=== PATIENT | female | born 1965 | race Caucasian/White ===

== ENCOUNTER 2016-01-04 10:05 | Inpatient (IN) | payer BC ==
[~2016-01-04] VITALS: Ht 160 cm; Wt 57.5 kg
[~2016-01-04 10:05] MED LIST: AC160U10 JT; ACET200V4 INH; ACID1TAB JT; ALPR0.254 GT; CITA20TA7 JT; DEXA4TAB JT; DIPH1TAB25 JT; ENOX40DI8 SC; FAMO20TA5 JT; GUAI100L13 JT; HYDR-3454 PO; IPRA3AMP INH; MAGN400T6 JT; METO5SOL18 JT; Oxycodone Hcl JT
--- OUTSIDE RECORDS SUMMARY | 2016-01-04 10:33 | XMS REPORT | Continuity of Care Document ---
Author Author [facility] Organization [facility] Address Unknown Phone Unavailable Care Team Providers Care Bottom Wheeler Name Role Phone Ewa Mathias PCP [phone] Source Comments Some departments are not documenting in the electronic medical record. If you do not see the information that you expected, contact Release of Information in the Health Information Management department at [phone] for further assistance in locating additional records.[facility] Active Allergies and Adverse Reactions Allergen [...] March 2014. Right breast sono-guided biopsy 04/29/14 ([place], [place]) revealed, grade 3, HER2 positive invasive ductal carcinoma. PET scan 05/12/14 ([place], [place]) revealed a 2.5 cm hypermetabolic mass [...] mastectomy/SLNB/TE on 11/05/14. She finished radiation in [place], [place] in February 2015. She started Examestane in February 2015. PATHOLOGY: Tumor: 2.4 cm tumor bed with no residual tumor Margins Free From Tumor: No ER: positive MS: negative Her 2: positive Grade: 3 Lymph Nodes: 0/2 LVSI: no Extranodal extension: no BREAST IMAGING: Mammogram: -- Right diagnostic mammogram 04/23/14 ([place], [place]) revealed distortion of the breast tissue in the upper outer quadrant with several areas of abnormal calcifications. -- Right diagnostic mammogram 08/17/14 () revealed a clip at 9:30 with surrounding pleomorphic calcifications. The calcifications panned 7 cm and extended to approximately 1 cm FTN. Ultrasound: -- Right breast ultrasound 04/23/14 ([place], [place]) revealed 2.3 cm hypoechoic mass corresponding [...] axillary adenopathy. MEDICAL ONCOLOGY: Dr. Esme Mathias ([place], [place]) PRESENT THERAPY: Neoadjuvant AC x 4 finished 07/16/14, followed by taxotere/perjeta/herceptin finished 10/08/14; started Exemestane in February 2015 REFERRED BY: Self Most Recent Encounters Date Type Specialty Providers Description 11/22/2015 Telephone Neurosurgery Juancarlos Cole MD Paperwork 11/05/2015 [facility] Radiology Sherine Roca Encounter Saira Birch Steven, MD 11/05/2015 Surgery Yao Oliveira MD TRACHEOSTOMY 11/04/2015 Anesthesia Ghada Interiano, NIKKO Event 11/03/2015 [facility] Radiology Franklin Swan MD Canceled (Error) Encounter Ricardo Rowley RN Vandervegte, Heather Lemons, Steven MD 11/03/2015 Endo Rslt Enc Tuan Harvey MD 11/03/2015 Surgery Chris Valverde MD ESOPHAGOGASTRODUODENOSCOP Y 11/02/2015 Anesthesia Radiology Ty Wolfe SRNA Event 10/27/2015 Hospital Radiology Juancarlos Cole MD Canceled (Error) Encounter 10/27/2015 Hospital Radiology Juancarlos Cole MD Canceled (Error) Encounter Alfredo Wesley RN Melvin, Lorie 10/27/2015 Anesthesia Radiology Deb Chakraborty SRNA Event 10/25/2015 [facility] Radiology Kera Chavez APRN Canceled (Error) Encounter 10/21/2015 Screening Form 10/21/2015 Anesthesia Neurosurgery Jorge Fernández MD Event 10/20/2015 [facility] Radiology Velia Celis APRN Canceled (Other) Encounter 10/15/2015 Surgery Kristian Rodas MD Canceled RECONSTRUCTION BREAST WITH IMPLANT 10/14/2015 Anesthesia Addi Rosado MD Event 10/14/2015 Surgery Juancarlos Cole MD SUBOCCIPITAL CRANIECTOMY AND CERVICAL 1 LAMINECTOMY FOR RESECTION OF CEREBELLAR MASS CPT 47784 10/13/2015 [facility] Ozzy Keys MD Posterior fossa tumor - Encounter Juancarlos Cole MD (HCC) 11/11/2015 10/13/2015 Prep for Case Neurosurgery Juancarlos Cole MD Malignant neoplasm of cerebellum (HCC) (Primary Dx) 10/13/2015 Telephone Plastic Surgery Kristian Rodas MD General Question 10/08/2015 Office Visit Plastic Surgery Krisitan Rodas MD Malignant neoplasm of upper-outer quadrant of right female breast (HCC) (Primary Dx) Social History Tobacco Use Types Packs/Day Years [...] LAMINECTOMY FOR RESECTION OF CEREBELLAR MASS CPT 72070 Results from Last 3 Months PROCEDURES-SCAN (11/14/2015 [...] in the usual sterile fashion. A 5 Turkish ROHIT 1 catheter was advanced through the [...] and the needle was removed. A 5 Turkish ROHIT 1 catheter was used to cross the pylorus and was advanced to the proximal jejunum. An Amplatz wire was then advanced into the proximal jejunum and the ROHIT 1 catheter was removed. A series of dilators were placed over the Amplatz wire followed by 20 Turkish peel-away sheath. The ROHIT 1 catheter was then used to exchange the Amplatz wire for a stiff Glidewire and was subsequently removed. An 18 Turkish 45 cm gastrojejunostomy tube was advanced over [...] in the usual sterile fashion. A 5 Turkish ROHIT 1 catheter was advanced through the [...] and the needle was removed. A 5 Turkish ROHIT 1 catheter was used to cross the pylorus and was advanced to the proximal jejunum. An Amplatz wire was then advanced into the proximal jejunum and the ROHIT 1 catheter was removed. A series of dilators were placed over the Amplatz wire followed by 20 Turkish peel-away sheath. The ROHIT 1 catheter was then used to exchange the Amplatz wire for a stiff Glidewire and was subsequently removed. An 18 Turkish 45 cm gastrojejunostomy tube was advanced over [...] 3.5 MMOL/L O2 Sat-Arterial 96.7 95-99 % Sortmrsoner-UVF-Guo 27.5 21-28 MMOL/L Specimen Blood, arterial - [...] Benjamin Sims Procedure Date: 11/03/2015 6:41 PM [facility]: [id number] Date of : 1965 Gender: Female Attending Physician: Chris Valverde MD Procedure: Upper GI endoscopy Indications: Th erapeutic procedure, Diagnostic procedure, Suspected upper gastrointestinal bleeding Providers: Chris Valverde MD (Doctor), Gerald Kilgore RN (Nurse), Vel Ray, Power Plant Operator (Power Plant Operator), Richie Corbin, Power Plant Operator (Power Plant Operator), Ephraim Al MD (Fellow) Referring Physician: [...] 1 second Procedure Code(s): --- Professional --- 99798, Esophagogastroduodenoscopy, flexible, transoral; diagnostic, including collection of specimen(s) by brushing or washing, when performed (separate procedure) CPT copyright 2015 [employer]. All rights reserved. The codes documented in this report are preliminary and upon certified procedural coder review may be revised to meet current [...] tube, left Port-A-Cath, and right breast tissue astrophysics teacher are again noted. Interval improvement in alveolar [...] tube, left Port-A-Cath, and right breast tissue astrophysics teacher are again noted. Interval improvement in alveolar [...] Referring Provider Esme Mathias CV ECHO PV MAGAZINE SUPERVISOR NEI nurse LVIDD 4.1 3.9-5.3 cm LVIDS [...] Screen NEG Electronic Crossmatch YES Unit Number [id number] Blood Component Type RBC,ADSOL,LEUKO REDUCED Unit Division 0 Status OF Unit TRANSFUSED Transfusion Status OK TO TRANSFUSE Crossmatch Result COMPATIBLE,ELECTRONIC Specimen Blood HEPARIN INDUCED PLT AB (HIT) (10/30/2015 2:43 PM) Component Value Range Heparin Induced Plt AB NEGATIVEComment: TEST PERFORMED BY [facility]- NEGATIVE [facility] Heparin AB OD 0.042 0.000-0.499 Specimen [...] lower abdomen and pelvis are excluded from [id number]. Partial visualization of patchy bilateral pulmonary opacities. Partial visualization of the right breast tissue astrophysics teacher. Procedure Note Interface, Radiant Results - SunOct [...] lower abdomen and pelvis are excluded from [id number]. Partial visualization of patchy bilateral pulmonary opacities. Partial visualization of the right breast tissue astrophysics teacher. IMPRESSION Enteric tube as described above. Approved [...] Range Color,UA STRAW Turbidity,UA CLEAR CLEAR-CLEAR Specific Holliday-Urine 1.008 1.003-1.035 pH,UA 7.0 5.0-8.0 Protein,UA NEG [...] Right breast carcinoma post mastectomy and tissue astrophysics teacher placement 11/05/2014. Technique: Multiple contiguous axial CT [...] prior right mastectomy with right breast tissue astrophysics teacher in place. Patchy sclerosis is partially visualized within the proximal right humerus. There are prominent lower thoracic degenerative Schmorl's nodes. Left subclavian chest port remains in place. Procedure Note Interface, Radiant Results - SunOct 20, 2015 8:44 AM CDT CTA CHEST Clinical Indication: 50-year-old female. Shortness of air. Right breast carcinoma post mastectomy and tissue astrophysics teacher placement 11/05/2014. Technique: Multiple contiguous axial CT [...] prior right mastectomy with right breast tissue astrophysics teacher in place. Patchy sclerosis is partially visualized [...] PM) Component Value Range PATHOLOGY REPORT [facility] [email or web address] Asaf Hayes MD, PhD, Director of Anatomic Pathology Department of Pathology and Laboratory Medicine [address] [place] [id number] Surgical Pathology Office: [phone] SURGICAL PATHOLOGY REPORT NAME: LEVI OZUNA SURG PATH #: [id number] MR #: [id number] SPECIMEN CLASS: SR BILLING #: [id number] ALT ID #: LOCATION: [facility] DATE OF PROCEDURE: 10/14/2015 AGE: 50 SEX: [...] Frozen section remnant. A2 Remaining soft tissue. ([facility]) B. Received in formalin, labeled with the patient's name and "cervical 1 bone" are two portions of white-rolon bony tissue measuring 2.0 x 1.3 x 0.5 cm and 2.7 x 2.5 x 0.5 cm. One aspect of the bone is roughened with possible adherent soft tissue. The opposing aspect is smooth and white-rolon. The specimen is decalcified prior to sectioning, and district sales representative sections are submitted in cassettes B1-B3. (sc) C. Received in formalin, labeled with the [...] a white-rolon to red, variegated cut surface. Financial Wellness Coach sections of this portion of tissue are submitted in cassettes C1 and C2. The entire two smaller portions of tissue are submitted in cassette C3 without sectioning. (sc) D. Received in formalin, labeled with the patient's name and "cerebellar tumor CUSA sock" is a 2.5 x 2.0 x 0.6 cm aggregate of minute white-rolon soft tissue fragments. The specimen fragments range from 0.1 cm to 0.3 cm in greatest dimension. Approximately 50% of the specimen is submitted in cassette D1. (sc) [facility]/10/14/2015 Intraoperative Consultation: (Brain), A1FS, lesional tissue, "cerebellar tumor", biopsy: Metastatic carcinoma. Marly Markham MD, Attending Physician If immunohistochemical stains and/or in situ hybridization are cited in this report, the performance characteristics were determined by the Department of Pathology and Laboratory Medicine of the [facility] ([employer]) in compliance with CLIA'88 regulations. Some of these tests rely on the use of "analyte specific reagents" and are subject to specific labeling requirements by the FDA. Known positive and negative control tissues demonstrate appropriate staining. This testing was developed by the Department of Pathology and Laboratory Medicine of the [facility]. It has not been cleared or approved by the FDA. The FDA has determined that such clearance or approval is not necessary. ANESTHESIA ARTERIAL LINE INSERTION (10/14/2015 4:43 PM) Narrative Addi Rosado MD 10/14/20154:43 PM Anesthesia Procedure: Arterial [...]
--- NOTE | 2016-01-04 11:56 | Occupational Therapy Eval ---
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 Subsequent surgeries included PEG insertion and tracheostomy. She has a speaking valve, dysphagia, vocal cord paralysis. Also had post-op pneumonia, anemia. Hx breast cancer with mastectomy in 2014. Transferred to ARU from [place] in [place] Current History Pt was transferred to swing bed on 12/20 for brain radiation and antibiotics. Radiation tx is finished and pt transferred back to ARU for rehabilitation. 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 No pain mentioned but she was fatigued because she had had radiation treatment and modified barium swallow study prior to admission. No pain mentioned Mental Status/Objective Patient Orientation: Person, Place, Time, Situation Attachments: PEG Tube, Saline Lock Current Glasses/Contacts: Yes Hearing Aids: No Hand Dominance: Right Upper Extremity ROM R shoulder 3/5, 3+/5 elbow and distal. L UE 4-/5 throughout Upper Extremity Coordination Impaired Upper Extremity Sensation Pt reported tingling in all fingers both hands since radiation tx No mention of double vision from previous admission ADL-Treatment ADL-Current All ADLs took longer than usual and needed additional encouragement Functional [place] Measure 0=Not Assessed/NA 4=Minimal Assistance 1=Total Assistance 5=Supervision or Setup 2=Maximal Assistance 6=Modified [place] 3=Moderate Assistance 7=Complete [place] Eating (FIM): 1 (Tube feeding which she cannot manage) Grooming (FIM): 5 (Setup to brush teeth, comb hair, wash face and hands. CUes for such things as take glasses off. ) Bathing (FIM): 5 (Sponge bath, setup and supervision, done supine and sitting. Pt was able to reach both feet and wash them, as well as wash layo and bottom with rolling side to side. Min assist to come to sitting EOB but she maintained it and washed arms, chest, abdomen and face/hands) Bathing Location: L Arm, R Arm, L Upper Leg, R Upper Leg, L Lower Leg ( including foot), R Lower Leg (including foot), Chest, Abdomen, Buttocks, Perineal Area Upper Body Dressing (FIM): 4 (Needed a little help to get robe around her shoulders in back) Lower Body Dressing (FIM): 4 (Pt was able to mostly get slipper socks on while supine in bed but had most difficulty getting them started and over feet. Able to get fet into Depends but needed help to pull them up when standing) Transfers (B, C, W/C) (FIM): 4 (Needed a little help when coming to sit to her L side to push up with L arm) Education OT Patient Education: Modified ADL techniques, Progress toward Goal/Update tx plan, Purpose of tx/functional activities, Reviewed precautions, Transfer techniques, Use of adapted equipment Teaching Recipient: Patient Teaching Methods: Demonstration, Discussion Response to Teaching: Reinforcement Needed OT Short Term Goals Short Term Goals Time Frame: 2 weeks Lower Body Dressing(FIM): 4 Toileting(FIM): 4 Transfers (B,C,W/C) (FIM): 5 Toilet/Commode Transfer(FIM): 4 Shower Transfer(FIM): 5 1=Demonstrate adherence to instructed precautions during ADL tasks. 2=Patient will verbalize/demonstrate understanding of assistive devices/ modifications for ADL. 3=Patient will improve strength/tolerance for activity to enable patient to perform ADL's. OT Half-Way Goals Production Sanitizer Goals Time Frame: 4 weeks Eating (FIM): 1 Grooming(FIM): 6 Bathing(FIM): 6 Upper Body Dressing(FIM): 6 Lower Body Dressing(FIM): 5 Toileting(FIM): 5 Transfers (B,C,W/C) (FIM): 5 Toilet/Commode Transfer(FIM): 5 Shower Transfer(FIM): 5 Additional Goals: 2-Verbalize Understanding, 3-ImproveStrength/Enrrique 1=Demonstrate adherence to instructed precautions during ADL tasks. 2=Patient will verbalize/demonstrate understanding of assistive devices/ modifications for ADL. 3=Patient will improve strength/tolerance for activity to enable patient to perform ADL's. OT Education/Plan Problem List/Assessment Assessment: Decreased Activ Tolerance, Decreased Safety Aware, Decreased UE Strength, Dependent Transfers, Impaired Bed Mobility, Impaired Coordination, Impaired Funct Balance, Impaired Self-Care Skills, Restricted Funct UE ROM Pt would benefit from skilled OT to increase her independence in basic self care to allow her to return home safely Discharge Recommendations Plan/Recommendations: Continue POC Target Placement home Patient/Family Goals Her main goal is to walk Treatment Plan/Plan of Care Treatment,Training & Education: Yes Patient would benefit from OT for education, treatment and training to promote independence in ADL's, mobility, safety and/or upper extremity function for ADL' s. Plan of Care: ADL Retraining, Caregiver Training, Functional Mobility, Orthotic Fitting/Training, UE Funct Exercise/Act, UE Neuromus Re-Ed/Coord Treatment Duration: 4 weeks # of days/week 5-6 Visits Per Week: 10-11 Minutes/Day (M-F): 75-90 Agreement: Yes Rehab Potential: Fair Time/GCodes Start Time: 10:40 Stop Time: 11:30 Total Time Billed (hr/min): 50 Billed Treatment Time visit, evaluation 15 minutes, ADL 50 minutes KELLY ATKINS OT Jan 04, 2016 11:56
--- NOTE | 2016-01-04 12:11 | ST Mod Barium Swallow ---
Speech Evaluation-General Medical Diagnosis brain mets, neuropathy of critical illness Onset Date: Oct 13, 2015 Therapy Diagnosis Therapy Diagnosis: Severe Oropharyngeal Dysphagia Precautions Precautions: Aspiration Precautions/Isolations: Fall Prevention, Standard Precautions Referral Referring Physician: Dr. Kristian Dee Reason for Referral: Evaluation/Treatment Modified Barium Swallow Evaluation Medical History Pertinent Medical History: Breast CA S/P Mastectomy Reviewed History: Yes Speech Mod Barium Swallow Prior Level of Function The patient arrived to the rehabilitation floor with an NPO status. 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 Oral Motor Skills Dentition Comments: Patient with natural, full dentition. Lingual Protrusion: Normal (Patient with small amount of white coating on lingual surface. The patient is currently receiving Nyastatin.) Lingual ROM: Abnormal (Reduced lateral range of motion, bilaterally.) Lingual Strength: Abnormal (Reduced lingual strength bilaterally.) Volitional Dry Swallow: Yes (Delayed.) Voluntary Cough: Yes Can Clear Throat Volitionally: No Textures-Lateral View Lateral View Food Presentation: Honey Liquid via Spoon, Pureed Solids Oral Phase Labial Closure: No Impairment (WFL) Bolus Formation Pooling L/R: No Impairment (WFL) Bolus Formation Placement: No Impairment (WFL) A/P Lingual Propulsion: Moderate Impairment (Reduced, delayed, and weak lingual range of motion for posterior propulsion of bolus material.) Lingual Movement: Moderate Impairment (Weak.) Oral Phase Residue: Moderate Impairment (Moderate oral residue remained with all consistencies tested.) Pharyngeal Phase Swallow Response: Moderate Impairment (Bolus material reach and remained in the vallecular space prior to swallow onset. Maximum verbal prompting was provided by the clinician to elicit a swallow response.) Base of Tongue: Moderate Impairment Epiglottic Movement: Mild Impairment Laryngeal Elevation: Moderate Impairment Pharyngeal Wall Residue: Moderate Piriform Sinus Residue: Moderate Laryngeal Penetration: Moderate Aspiration Observations: Moderate Moderate aspiration was visualized during the swallow with puree and honey- thick liquid consistencies. Bolus material reached the pyriform sinuses prior to spilling through the interarytenoid space and into the airway. Regardless of maximum prompting, the patient was unable to clear the aspirated material (in it 's entirety) with a spontaneous cough. Summary/Impressions The patient demonstrated severe oropharyngeal dysphagia characterized by decreased lingual range of motion and strength, reduced base of tongue retraction, decreased pharyngeal wall contractions, and reduced airway protection and sensation in the presence of bolus material. Moderate aspiration was noted throughout the swallow with honey-thick liquid and puree consistencies tested. Recommendations: 1. The patient should remain NPO while receiving complete nutrition, hydration, and medication via PEG tube. 2. Frequent oral care. 3. The patient should continue intensive dysphagia therapy. Speech Short Term Goals Short Term Goals Short Term Goals 1. The patient will independently demonstrate laryngeal, pharyngeal, and base of tongue exercises. Time Frame-STG: Two Weeks Speech Pathology Transcriptionist Goals Fpc Goals 1. The patient will tolerate PO trials of the least restrictive consistency without signs/symptoms of aspiration or laryngeal penetration. Time Frame: Eight Weeks Comprehension: 6 Expression: 5 Social Interaction: 5 Problem Solvin Memory: 5 Speech-Plan Treatment Plan Speech Therapy Treatment Plan: Continue Plan of Care Treatment Duration: 30 # of days/week 4 to 5 Visits Per Week: 4 to 5 Minutes/Day (M-F): 30 Rehab Potential: Guarded Safety Risks/Education Teaching Recipient: Patient Teaching Methods: Discussion Response to Teaching: Verbalize Understanding, Reinforcement Needed Education Topics Provided: Results and Recommendations. To note: Following the video swallow, the patient's highway patrol officer was present to provide communion to the patient. The patient verbalized understanding of her risk of aspiration of the consistency and reported the desire to complete the task regardless. The communion wafer was soaked in the communion wine to soften. The patient took less than a half teaspoon of the wafer and demonstrated an effortful swallow. The patient was immediately suctioned by RN following. Time Speech Therapy Time In: 09:45 Speech Therapy Time Out: 10:25 Total Billed Time: 40 Billed Treatment Time 1CRISTÓBAL ELIZABEFER FLOREZ Jan 04, 2016 12:11
[2016-01-04] MEDS ORDERED: ALPRAZolam 0.25 MG (XANAX) TAB GT PRN (12:45)
[2016-01-04] MEDS ORDERED: RT-ALBUTEROL/IPRATROPIUM 3 ML (DUONEB) VIAL INH PRN (12:45)
[2016-01-04] MEDS: guaiFENesin SYRUP 100 MG/5 ML 10 ML (ROBITUSSIN SF) JT SCH ×3 (13:20→20:25)
[2016-01-04] MEDS: LACTOBACILLUS Acidoph/Bulgar (LACTINEX/FLORANEX) TAB JT SCH ×3 (13:20→20:25)
--- NOTE | 2016-01-04 13:35 | Physical Therapy Evaluation ---
PT Evaluation-General Medical Diagnosis Admission Date Jan 04, 2016 at 10:05 Medical Diagnosis: brain mets, neuropathy of critical illness Onset Date: Oct 13, 2015 Therapy Diagnosis Therapy Diagnosis: generalized weakness and debility Height/Weight Height (Feet): 5 Height (Inches): 3.00 Weight (Pounds): 115 Weight (Ounces): 7.0 Precautions Precautions/Isolations: Fall Prevention, Standard Precautions Referral Physician: Luiz Reason for Referral: Evaluation/Treatment Medical History Pertinent Medical History: Breast CA S/P Mastectomy Additional Medical History breast cancer with brain mets Current History prolonged hospital stay Reviewed History: Yes Social History Home: Single Level Current Living Status: Spouse Entry Into Home: Stairs With Railing PT Steps Into Home: 3 Prior/Core FIM Prior Level of Function Functional [place] Measure 0=Not Assessed/NA 4=Minimal Assistance 1=Total Assistance 5=Supervision or Setup 2=Maximal Assistance 6=Modified [place] 3=Moderate Assistance 7=Complete [place] Bed Mobility: 2 Transfers (B,C,W/C) (FIM): 2 Gait: 0 this is an extension from prolonged hospital stay. PT Evaluation-Current Subjective Patient is just complete with OT and agrees to PT. Pain Numeric Pain Scale: 5-Moderate Pain Location: Lower Location Body Site: Back Pain Description: Ache Pt/Family Goals patient goal is to ambulate Objective Patient Orientation: Normal For Age Problem Solving: Fair JPEG tube ROM/Strength ROM Upper Extremities refer to nursing notes ROM Lower Extremities bilateral LE WFL Strength Upper Extremities refer to OT Strenght Lower Extremities left LE 3-/5 grossly; right LE 2-/5 grossly Integumentary/Posture Integumentary refer to nursing notes Bowel Incontinence: No Bladder Incontinence: No Posture forward head/rounded shoulders Neuromuscular (Tone, Coordination, Reflexes) severely diminished coordination with gross motor activity Sensory Vision: Wears Glasses Hearing: Functional Sensation Right Lower Extremit: Impaired Sensation Left Lower Extremity: Impaired Transfers Transfers (B, C, W/C) (FIM): 3 Scootin Rollin Supine to/from Sit: 4 Sit to/from Stand: 3 bed t/f WC(FIM only if WC use): 3 patient is able to perform bed mobility SBA inconsistently Gait Mode of Locomotion: Both Anticipated Mode of Locomotion: Both Gait (FIM): 1 Distance (FIM): 1=up to 49 ft Distance: 10' x 2 Gait Level of Assist: 2 Gait Persons Needed: 1 Gait Assistive Device: None Comments/Gait Description face to face with PT with use of gait belt to assist patient with weight shifting to advance LE's with gait training Wheelchair Training Wheelchair (FIM): 1 Wheelchair Distance (FIM): 1=up to 49 ft Distance: 10' Wheelchair Level of Assist: 2 Stairs If not tested on admit;explain due to patient severe limitation with debility and weakness, patient is unable to safely perform this task Balance Sitting Static: Fair Sitting Dynamic: Fair Standing Static: Fair Standing Dynamic: Fair Treatment bilateral LE AAROM 15 reps x 2 sets AP, QS, SLR, bridging Assessment/Needs 50 y.o. female, will benefit from skilled PT to address functional strength and mobility to improve current LOF. Patient has been receiving radiation for metastatic cancer. Rehab Potential: Guarded Post Rehab Potential-Barriers: prolonged hospital stay and metastatic cancer PT Short Term Goals Short Term Goals Time Frame: 2 wks Transfers (B,C,W/C) (FIM): 4 Gait (FIM): 1 Distance (FIM): 1=up to 49 ft Gait Distance Comment: 25' Gait Level of Assist: 3 Gait Assistive Device: FWW Wheelchair (FIM): 1 Wheelchair distance (FIM): 1=up to 49 ft Wheelchair Distance: 25' Wheelchair Level of Assist: 4 PT Intermediate Goals Intermediate Goals Time Frame: 4 wks Transfers (B,C,W/C) (FIM): 5 Gait (FIM): 1 Gait distance (FIM): 1=up to 49 ft Distance: 45' Gait Level of Assist: 4 Gait Assistive Device: FWW Stairs (FIM): 1 # of Steps: 4 Stairs Level Of Assist: 4 PT Plan Problem List Problem List: Activity Tolerance, Functional Strength, Safety, Balance, Gait, Transfer, Bed Mobility Treatment/Plan Treatment Plan: Continue Plan of Care Treatment Plan: Bed Mobility, Education, Functional Activity Enrrique, Functional Strength, Group Therapy, Gait, Safety, Therapeutic Exercise, Transfers Treatment Duration: 4 wks # of days/week 5-6 Minutes/Day (M-F): 60-90 Minutes/Day (Sat/Maddox): PRN Pt/Family Agrees w/Plan: Yes Safety Risks/Education Patient Education: Gait Training, Transfer Techniques Teaching Recipient: Patient Teaching Methods: Demonstration, Discussion Response to Teaching: Verbalize Understanding, Return Demonstration Time/GCodes Time In: 1130 Time Out: 1200 Total Billed Treatment Time: 30 Total Billed Treatment 1 visit EVL 30 min TONG STROUD PT Jan 04, 2016 13:35
--- NOTE | 2016-01-04 14:51 | Physical Therapy Daily Note ---
PT Daily Note-Current Subjective Patient is in bed and agrees to therapy. Pain Numeric Pain Scale: 3 Location: Lower Location Body Site: Back Pain Description: Ache Mental Status Patient Orientation: Normal For Age Transfers Transfers (B, C, W/C) (FIM): 3 Scootin Rollin Supine to/from Sit: 5 Sit to/from Stand: 3 Bed to/from Chair: 3 Gait Training Gait (FIM): 1 Distance (FIM): 1=up to 49 ft Distance: 10' x 2; 20' x 1 Gait Level of Assist: 3 Gait Persons Needed: 1 Gait Assistive Device: FWW close mod assist with assist for weight shifting Exercises Supine Ex: Ankle pumps, Quad Set Supine Reps: 15 Assessment Patient requires recovery periods due to fatigue and SOA. Patient also requires much encouragement to participate with advancing therapy program. PT Short Term Goals Short Term Goals Time Frame: 2 wks Transfers (B,C,W/C) (FIM): 4 Gait (FIM): 1 Distance (FIM): 1=up to 49 ft Gait Distance Comment: 25' Gait Level of Assist: 3 Gait Assistive Device: FWW Wheelchair (FIM): 1 Wheelchair distance (FIM): 1=up to 49 ft Wheelchair Distance: 25' Wheelchair Level of Assist: 4 PT Care Home Goals Care Home Goals Time Frame: 4 wks Transfers (B,C,W/C) (FIM): 5 Gait (FIM): 1 Gait distance (FIM): 1=up to 49 ft Distance: 45' Gait Level of Assist: 4 Gait Assistive Device: FWW Stairs (FIM): 1 # of Steps: 4 Stairs Level Of Assist: 4 PT Plan Treatment/Plan Treatment Plan: Continue Plan of Care Treatment Plan: Bed Mobility, Education, Functional Activity Enrrique, Functional Strength, Group Therapy, Gait, Safety, Therapeutic Exercise, Transfers Treatment Duration: 4 wks Minutes/Day (M-F): 60-90 Minutes/Day (Sat/Maddox): PRN Time/GCodes Time In: 1321 Time Out: 1406 Total Billed Treatment Time: 45 Total Billed Treatment 1 visit GT x 3 45 min TONG STROUD PT Jan 04, 2016 14:50
--- NOTE | 2016-01-04 15:40 | Occupational Ther Daily Note ---
OT Current Status-Daily Note Subjective Pt seen in gym after PT. She helped propel w/c to gym with her feet Mental Status/Objective Functional [place] Measure 0=Not Assessed/NA 4=Minimal Assistance 1=Total Assistance 5=Supervision or Setup 2=Maximal Assistance 6=Modified [place] 3=Moderate Assistance 7=Complete [place] Other Treatment Grain Receiver and pinch strength measurements Grain Receiver: L 12, 10, 10, 10 lb R 4, 4, 4 lb Pinch: L R Lateral 6 2 3 jaw domenica 4 1 Tip 2 1 Incomparison to number collected on 12/09 she shows increased pinch on L. For network security officer strength, maximum network security officer about the same but she was able to maintain numbers for longer period of time. Pt returned to her room, scooted to edge of chair, stood min-mod assist and transferred safely to bed. needed a little help to pull up in bed but she did assist. 4 rails up, call light, table present. Education OT Patient Education: Exercise program, Purpose of tx/functional activities, Rehab process, Transfer techniques, Use of adapted equipment Teaching Recipient: Patient Response to Teaching: Reinforcement Needed OT Short Term Goals Short Term Goals Time Frame: 2 weeks Lower Body Dressing(FIM): 4 Toileting(FIM): 4 Transfers (B,C,W/C) (FIM): 5 Toilet/Commode Transfer(FIM): 4 Shower Transfer(FIM): 5 1=Demonstrate adherence to instructed precautions during ADL tasks. 2=Patient will verbalize/demonstrate understanding of assistive devices/ modifications for ADL. 3=Patient will improve strength/tolerance for activity to enable patient to perform ADL's. OT Retirement Goals Maintenance Inspector Goals Time Frame: 4 weeks Eating (FIM): 1 Grooming(FIM): 6 Bathing(FIM): 6 Upper Body Dressing(FIM): 6 Lower Body Dressing(FIM): 5 Toileting(FIM): 5 Transfers (B,C,W/C) (FIM): 5 Toilet/Commode Transfer(FIM): 5 Shower Transfer(FIM): 5 Comprehension(FIM): 6 Expression (FIM): 5 Social Interaction(FIM): 5 Problem Solving(FIM): 5 Memory(FIM): 5 Additional Goals: 2-Verbalize Understanding, 3-ImproveStrength/Enrrique 1=Demonstrate adherence to instructed precautions during ADL tasks. 2=Patient will verbalize/demonstrate understanding of assistive devices/ modifications for ADL. 3=Patient will improve strength/tolerance for activity to enable patient to perform ADL's. OT Education/Plan Problem List/Assessment Pt would benefit from skilled OT to increase her independence in basic self care to allow her to return home safely Discharge Recommendations Plan/Recommendations: Continue POC Treatment Plan/Plan of Care Patient would benefit from OT for education, treatment and training to promote independence in ADL's, mobility, safety and/or upper extremity function for ADL' s. Plan of Care: ADL Retraining, Caregiver Training, Functional Mobility, Orthotic Fitting/Training, UE Funct Exercise/Act, UE Neuromus Re-Ed/Coord Treatment Duration: 4 weeks Visits Per Week: 10-11 Minutes/Day (M-F): 75-90 Agreement: Yes Rehab Potential: Fair Time/GCodes Start Time: 14:10 Stop Time: 14:30 Total Time Billed (hr/min): 20 Billed Treatment Time visit, 20 minutes neuromotor KELLY ATKINS OT Jan 04, 2016 15:40
[2016-01-04] MEDS: aCETylcysteine 20% (MUCOMYST) 30ML SOLN VIAL INH SCH ×2 (15:58→22:07)
[2016-01-04] MEDS: ENOXAPARIN 40 MG/0.4 ML (LOVENOX) SYR SC SCH (16:52)
[2016-01-04] MEDS: METOCLOPRAMIDE 10MG/10ML ORAL SOL(REGLAN) UDC JT SCH ×2 (16:52→20:25)
[2016-01-04] MEDS: MAGNESIUM OXIDE (MAG-OX)400 MG TAB JT SCH (16:53)
[2016-01-04] MEDS: NYSTATIN ORAL SUSP 5 ML UDC PO SCH ×2 (16:53→23:41)
[2016-01-04 18:21] VITALS: BP 99/62
[2016-01-04] MEDS: DIPHENOXYLATE/ATROPINE 2.5MG/0.025MG (LOMOTIL) TAB JT SCH (20:25)
[2016-01-04] MEDS: FAMOTIDINE 20 MG (PEPCID) TABLET JT SCH (20:25)
[2016-01-04] MEDS: APAP 325 MG/10.15 ML LIQ (TYLENOL) UDC JT PRN (22:05)
[2016-01-04] MEDS: RT-ALBUTEROL/IPRATROPIUM 3 ML (DUONEB) VIAL INH SCH (22:07)
[2016-01-05] MEDS: RT-ALBUTEROL/IPRATROPIUM 3 ML (DUONEB) VIAL INH SCH ×4 (02:35→18:49)
[2016-01-05] MEDS: aCETylcysteine 20% (MUCOMYST) 30ML SOLN VIAL INH SCH ×4 (02:35→18:49)
[2016-01-05 05:04] VITALS: BP 94/58
[2016-01-05] MEDS: NYSTATIN ORAL SUSP 5 ML UDC PO SCH ×3 (06:02→18:22)
[2016-01-05] MEDS: METOCLOPRAMIDE 10MG/10ML ORAL SOL(REGLAN) UDC JT SCH ×4 (06:02→21:45)
[2016-01-05] MEDS: MAGNESIUM OXIDE (MAG-OX)400 MG TAB JT SCH ×2 (08:28→18:23)
[2016-01-05] MEDS: LACTOBACILLUS Acidoph/Bulgar (LACTINEX/FLORANEX) TAB JT SCH ×4 (08:28→21:45)
[2016-01-05] MEDS: FAMOTIDINE 20 MG (PEPCID) TABLET JT SCH ×2 (08:28→21:45)
[2016-01-05] MEDS: guaiFENesin SYRUP 100 MG/5 ML 10 ML (ROBITUSSIN SF) JT SCH ×4 (08:28→21:45)
[2016-01-05] MEDS ORDERED: DEXAMETHASONE 1 MG TAB (DECADRON) PO SCH (09:00)
--- NOTE | 2016-01-05 09:37 | HISTORY AND PHYSICAL ---
DATE OF ADMISSION: 01/04/2016 CHIEF COMPLAINT: Difficulty with walking. HISTORY OF PRESENT ILLNESS: The patient is a 50-year-old female who had recent resection of metastatic lesion from breast involving the posterior fossa of the brain at [facility]. She was subsequently discharged to [facility] and then the patient was admitted to Inpatient Rehabilitation Unit earlier this month. The patient was subsequently seen by Dr. Chin radiation therapy and Dr. Bardales, medical oncology as well as Dr. Mathias, PCP. It was decided upon a course of radiation therapy and the patient was transferred to swing bed on December 20 and she has now completed that course of radiation therapy. She is now referred back to Inpatient Rehabilitation Unit to complete a course of inpatient rehabilitation. She had a modified barium swallow with speech therapy today. Unfortunately, did not pass. She remains n.p.o. and on tube feeds. She fatigues easily, has limited endurance. She is mod assist for transfers and ambulates less than 50 feet with a walker and gait belt. She is currently n.p.o. and dependent on tube feeding. She is set up for grooming, mod assist for upper body dressing. Max assist for lower body dressing. Mod assist for toileting. PAST MEDICAL HISTORY: 1. Pneumonia. 2. Vocal cord paralysis PAST SURGICAL HISTORY: 1. Breast cancer, status post mastectomy. 2. Resection of posterior fossa brain tumor 10/14/2015 [facility]. 3. Status post PEG, status post tracheostomy. 4. She has a Passy-Connor valve for communication during the day. ALLERGIES: SULFA FAMILY HISTORY: Noncontributory. SOCIAL HISTORY: She has a supportive family. 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 She is . REVIEW OF SYSTEMS: Ten-point review of systems significant for weakness, right more than left, impaired swallow. MEDICATIONS: 1. Celexa 20 mg per tube daily. 2. Decadron 1 mg per PEG daily. 3. Lomotil 1 tablet per tube b.i.d. 4. Pepcid 20 mg per PEG b.i.d. 5. Magnesium oxide 400 mg per tube b.i.d. 6. Nystatin swish and spit 5 mL q.6 hours. 7. Lovenox 40 mg subcutaneous daily for DVT prophylaxis. 8. Reglan 10 mg q.i.d. per tube. 9. Mucomyst respiratory treatments q.6 hours. 10. Lactinex 1 tablet q.i.d. 11. Guaifenesin 200 mg q.i.d. 12. Tylenol 500 mg q.4 hours p.r.n. mild pain. 13. OxyIR 5 mg q.4 hours p.r.n. moderate to severe pain. 14. Xanax 0.25 mg b.i.d. p.r.n. anxiety. 15. Zofran 4 mg every 4 hours p.r.n. nausea, vomiting. 16. DuoNeb treatments q.4 hours p.r.n. shortness of breath. PHYSICAL EXAMINATION: Significant for a female, appearing fairly debilitated lying in bed in no acute distress. VITAL SIGNS: She is afebrile. Pulse is 86, respirations 22, blood pressure 91/54, O2 sats 91%. HEENT: Vision, speech, hearing, grossly intact. She has a somewhat flat onset. She is able to speak through Passy-Hav[place]and valve. NECK: Trach site in place. No drainage noted. HEART: Regular rhythm. LUNGS: Clear. ABDOMEN: Feeding tube in place. No tenderness. Bowel sounds present. EXTREMITIES: No lower edema. No calf tenderness. MUSCULOSKELETAL: She has functional passive range of motion of all 4 extremities. NEUROLOGICAL: She has diminished coordination. She is reported to be continent of bowel and bladder. Sensation is impaired to touch in the ankles; strength on the right is generally 2-/5, left 3-/5. IMPRESSION: 1. General debilitation secondary to breast CA with mets to brain, status post resection. 2. Metastases superior fossa 12/14/2015, [facility]. 3. Status post trach. 4. Status post PEG. 5. Dysphagia secondary to above associated with weakness, n.p.o. and on tube feeds. 6. Reactive anxiety, on medication. 7. Loose stools at times most likely associated with tube feeds on medication. 8. DVT prophylaxis on Lovenox subcutaneous. 9. Oral thrush on nystatin swish and spit, doing better. 10. Steroid taper. PLAN: The patient is readmitted to Inpatient Rehabilitation Unit to resume comprehensive program of inpatient rehabilitation with goal of maximizing level of functional independence prior to discharge home with family and spouse. The patient will have PT/OT 90 minutes per day, each discipline, 5 days a week, when not being seen by speech therapy, for gait strengthening, conditioning, balance, energy conservation, any patient/family/caregiver training necessary, any adaptive equipment and training necessary. Speech therapy to do ongoing communication and swallow therapy 3 to 5 days a week for 30 to 45 minutes per day. Rehabilitation nursing assist with bowel, bladder, skin and wound care, medication, medication administration, pain management, tube feed administration trach care. Respiratory therapy to assist with respiratory treatments, monitoring O2 sats and trach care. Follow-up with Dr. Mathias, Dr. Bardales and Dr. Chin as per their schedules. marketing services coordinator to assist with discharge planning, community reentry. ESTIMATED LENGTH OF STAY: Two weeks. PROGNOSIS: Rehab prognosis appears good, at least short-term with a goal of maximizing level of functional independence prior to discharge home with spouse so as to lessen the burden of the caregivers, hopefully at the point where she is modified independent to supervision for ADLs and mobility skills. Family will be trained in tube feeds administration. DIET: Tube feedings. POST ADMISSION PHYSICIAN ASSESSMENT: The preadmission screen agrees with the post admission assessment that the patient is a good candidate for inpatient rehabilitation. She appears to be well motivated to participate in 3 hours of therapy a day. She should be able tolerate 3 hours of therapy a day from a medical standpoint. She should benefit from the 3 hours of therapy a day. She has reasonable discharge plan, reasonable discharge rehabilitation goals and a supportive family. She has various comorbidities that need to be closely monitored with medications and treatments adjusted on a daily basis as needed. These include her debility, her dysphagia and reactive anxiety and respiratory care. Barriers for discharge for this patient who had been independent prior to this are for her to be modified independent to supervision for ADLs and mobility skills and hopefully for feeding prior to discharge home with spouse with home health care, so as to lessen the burden of the caregivers. Risks for this patient include: 1. Recurrence of tumor. 2. Worsening neurologic status. 3. Fall. 4. Fracture. 5. DVT. 6. Pulmonary embolism. 7. Feeding tube dysfunction. 8. Trach tube dysfunction. 9. Respiratory infection. 10. Aspiration. 11. Urinary retention. 12. UTI. Job ID: [id number] Dictated Date: 01/04/2016 15:04:33 Carroting Machine Operator Date: 01/05/2016 09:11:51/eloina OVIEDO
--- NOTE | 2016-01-05 09:45 | PM & R (SOAP) Progress Note ---
Subjective Subjective/Events-last exam Patient was seen in her room this AM Had some issues with secretions last night Dr Mathias has addressed. Patient Mod assist for transfers. Objective Exam Last Set of Vital Signs Vital Signs Date Time Temp Pulse Resp B/P Pulse Ox O2 Delivery O2 Flow Rate FiO2 01/05/16 08:17 98 Room Air 01/05/16 05:04 96.5 89 19 94/58 01/05/16 02:35 8.00 30 Capillary Refill : I&O Bad tableGeneral: Alert, Oriented X3, Cooperative, No Acute Distress HEENT: Atraumatic, PERRLA, EOMI, Mucous Memb Moist/[place]: Other (Trach functioning) Lungs: Clear to Auscultation Heart: Regular Rate Abdomen: Normal Bowel Sounds, Soft, No Tenderness, Other (feeding tube in place ) Extremities: No Edema Neuro: Other (generalized weakness) Assessment/Plan Assessment S/P crani and removal Met lesion from breast ca Dysphagia NPO on tube feeds S/P trach ontrac collar at night and with PMV during day S/P Radiation Therapy course while on Swing bed Plan Continue PT/OT/ST Team Conference later today-See report for full functional update and POC and ELOS F/U with DR Mathias and Jeffy asper their schedule, UZMA VILLALOBOS MD Jan 05, 2016 09:45
--- NOTE | 2016-01-05 10:15 | Individualized Plan of Care ---
Individualized Plan of Care Rehab Nursing IPOC Order Admission Date Jan 04, 2016 at 10:05 Current Orders Orders-UZMA VILLALOBOS MD Patient Visit (01/04/16 ) Dysphagia Asmnt-Mod Barium (01/04/16 ) Admission-Acute Rehab Unit (01/04/16 12:38) Vital Signs: Routine 08,16,00 (01/04/16 12:38) Social Service (01/04/16 12:38) Rehab Nursing Orders-Ipoc (01/04/16 12:38) Physical Therapy Rehab Orders (01/04/16 12:38) Occupational Therapy Rehab Ord (01/04/16 12:38) Speech Therapy Rehab Orders (01/04/16 12:38) Turn And Reposition Q2HR (01/04/16 12:38) Intake & Output Shift Assessme ,, (01/04/16 12:38) Precautions (Aru) (01/04/16 12:38) Weekly Weight (Lbs) WEEK (01/04/16 12:38) Suction Airway (01/04/16 12:42) Nursing (Patient Care) Communi (01/04/16 12:42) Tube Feeding (01/04/16 Dinner) Lactobacillus/Bulgaricus Tab (Lactinex (01/04/16 13:00) Diphenoxylate/Atropine Tablet (Lomotil T (01/04/16 21:00) Famotidine Tablet (Pepcid Tablet) (01/04/16 21:00) Acetylcysteine (Rt Or Po Use) (Mucomyst (01/04/16 15:00) Acetaminophen Oral Solution (Tylenol Ora (01/04/16 12:45) Enoxaparin Injection (Lovenox Injection) (01/04/16 16:00) Magnesium Oxide Tablet (Mag Ox Tablet) (01/04/16 18:00) Citalopram Tablet (Celexa Tablet) (01/05/16 09:00) Sodium Chloride Flush (Catheter Flush Sy (01/04/16 12:45) Oxycodone Immediate Rel Tablet (Oxyir Ta (01/04/16 12:45) Dexamethasone Tablet (Decadron Tablet) (01/05/16 09:00) Alprazolam Tablet (Xanax Tablet) (01/04/16 12:45) Metoclopramide Oral Liquid (Reglan Oral (01/04/16 16:00) Nystatin Oral Suspension (Mycostatin O (01/04/16 18:00) Ondansetron Injection (Zofran Injectio (01/04/16 12:45) Albuterol/Ipra Inhalation Soln (Duoneb I (01/04/16 12:45) Guaifenesin Sf Syrup (Robitussin Sf Syru (01/04/16 13:00) Dietary Consult (01/04/16 12:42) Consult Physician (01/04/16 12:47) Patient Visit (01/04/16 ) Pt Evaluation 30-60 Min (01/04/16 ) Gait Training, Ea 15 Min (01/04/16 ) PT IPOC Problem List: Activity Tolerance, Functional Strength, Safety, Balance, Gait, Transfer, Bed Mobility Treatment Plan: Continue Plan of Care Bed Mobility, Education, Functional Activity Enrrique, Functional Strength, Group Therapy, Gait, Safety, Therapeutic Exercise, Transfers Treatment Duration: 4 wks Visits Per Week: 10-11 Minutes/Day (M-F): 60-90 Minutes/Day (Sat/Maddox): PRN OT IPOC Problems: Decreased Activ Tolerance, Decreased Safety Aware, Decreased UE Strength, Dependent Transfers, Impaired Bed Mobility, Impaired Coordination, Impaired Funct Balance, Impaired Self-Care Skills, Restricted Funct UE ROM OT Problems Pt would benefit from skilled OT to increase her independence in basic self care to allow her to return home safely Plan of Care: ADL Retraining, Caregiver Training, Functional Mobility, Orthotic Fitting/Training, UE Funct Exercise/Act, UE Neuromus Re-Ed/Coord Treatment Duration: 4 weeks Visits Per Week: 10-11 Minutes/Day (M-F): 75-90 Minutes/Day (Sat/Maddox): prn ST IPOC Speech Therapy Treatment Plan: Continue Plan of Care Treatment Duration: 30 Visits Per Week: 4 to 5 Minutes/Day (M-F): 30 Physician IPOC Medical Issues being managed closely and that require the 24 hour availability of a physician:Trach care Feeding tube care and administration of Tube feeds Medical Issues: DVT Prophylaxis, Falls Precautions, Fluid/Electrolyte/ Nutrition Balance, Infection Protection, Pain Management, Swallowing Precautions , Other (List) (as per above) Brief Synthesis of Preadmission Screen, Post-Admission Evaluation, and Therapy Evaluations: 50 yo female with metastatic breast ca to brain s/p resection of tumor post fossa at [facility].Has trach and Feeding tube and patient is NPO for dysphagia.Now s/p course of Radiation therapy while on swing bed via [facility] at this facility.Referred back to rehab unit with goal of increasing strength and endurance prior to discharge to home with family.Dr Mathias PCP and DR Jeffy Saini and DR Chin Rad ONC following patient as well Medical Prognosis: short term good Anticipated Length of Stay: 2 weeks Rehab Goals Modified Independent to supervision for ADLS and Mobility skills so as to lessen the burden of the caregivers.Improve swallow so that PO intake possible.Instruct patient and family in Trach and Tube feeds as appropriate. Anticipated discharge destinat: Home with family and [facility] UZMA VILLALOBOS MD Jan 05, 2016 10:15
--- NOTE | 2016-01-05 11:01 | Speech Therapy Daily Note ---
Speech Daily Progress Note Subjective The patient was laying in bed upon entrance. The patient greeted the clinician appropriately and agreed to participate in a discussion and education regarding her video swallow, however, did not wish to complete dysphagia exercises on this date due to significant fatigue. Objective Modified Barium Swallow Evaluation Education: The disk containing the evaluation was shared with the patient on this date. The swallow assessment was extensively reviewed, as well as, the presence of aspiration with honey-thick liquid and puree. The areas of concentration for therapy was discussed with the patient (pharyngeal wall, base of tongue, and laryngeal elevation). The patient denied additional questions at this time and verbalized comprehension of the findings. Assessment Assessment Current Status: Poor Progress Communication Comprehension: 5 Expression: 5 Social Cognition Social Interaction: 4 Problem Solvin Memory: 5 Speech Short Term Goals Short Term Goals Short Term Goals 1. The patient will independently demonstrate laryngeal, pharyngeal, and base of tongue exercises. Time Frame-STG: Two Weeks Speech Half-Way Goals Half-Way Goals 1. The patient will tolerate PO trials of the least restrictive consistency without signs/symptoms of aspiration or laryngeal penetration. Time Frame: Eight Weeks Comprehension: 6 Expression: 5 Social Interaction: 5 Problem Solvin Memory: 5 Speech-Plan Treatment Plan Speech Therapy Treatment Plan: Continue Plan of Care Treatment Duration: 30 # of days/week 4 to 5 Visits Per Week: 4 to 5 Minutes/Day (M-F): 30 Rehab Potential: Guarded Safety Risks/Education Teaching Recipient: Patient Teaching Methods: Discussion, Audiovisual Response to Teaching: Verbalize Understanding Education Topics Provided: Video Swallow Results Time Speech Therapy Time In: 09:30 Speech Therapy Time Out: 10:00 Total Billed Time: 30 Billed Treatment Time 1ASAEL ELIZABETH ST Jan 05, 2016 11:01
[2016-01-05] MEDS: DIPHENOXYLATE/ATROPINE 2.5MG/0.025MG (LOMOTIL) TAB JT SCH ×2 (12:01→21:45)
--- NOTE | 2016-01-05 12:55 | Occupational Ther Daily Note ---
OT Current Status-Daily Note Subjective Pt seen in room, in bed asleep, saying she was tired but would participate. She did not want to take a shower due to fatigue Mental Status/Objective Functional [place] Measure 0=Not Assessed/NA 4=Minimal Assistance 1=Total Assistance 5=Supervision or Setup 2=Maximal Assistance 6=Modified [place] 3=Moderate Assistance 7=Complete [place] Attachments: Central Line, IV, PEG Tube ADL-Treatment Pt reclined to shower or bathe today, citing fatigue Eating (FIM): 1 (tubing feeding which she cannot manage) Upper Body (FIM): 4 (Able to get arms into sleeve and pull sleeves up but needed just a little help to get shirt over head) Lower Body Dressing (FIM): 3 (in bed. COuld not start slipper socks but could help pull them up - 50%. COuld get feet into depends but reluctant to roll side to side or bridge to pull pants up. Needed a little help getting pants up in back) Toileting (FIM): 1 (Unable to manage clothing or hygiene from loose stools. Used BSC. Required two people to manage clothing) Transfers (B, C, W/C) (FIM): 4 (Needed help to push up to sitting at EOB. Min assist to stand, FWW but cues for hand placement) Toilet/Commode Transfer (FIM): 3 (Pt was fatigued so needed more help to transfer from w/c to BSC and back. FWW. Also requires time to stop to manage clothing and legs were tired and buckled X1) Other Treatment Pt helped propel w/c about 20-30 feet, using feet and hands. needed encouragement to use R hand on wheel. In gym, did 3 minutes bilat UE exercise on arm bike set at 5W resistance. She was able to keep both hands on the handles throughout. Also worked on arc activity with no extensions, 2 sets including one with crossing midline. She had difficulty reaching R hand across to grasp rings, requiring repositioning of equipment. Some incoordination with grasping and holding rings. Pt was concerned that she had been incontinent of stool so was returned to room to toilet. Pt transferred back to w/c, up for PT. call light in hand. Pt education on her progress today. Education OT Patient Education: Progress toward Goal/Update tx plan Teaching Recipient: Patient Response to Teaching: Reinforcement Needed OT Short Term Goals Short Term Goals Time Frame: 2 weeks Lower Body Dressing(FIM): 4 Toileting(FIM): 4 Transfers (B,C,W/C) (FIM): 5 Toilet/Commode Transfer(FIM): 4 Shower Transfer(FIM): 5 1=Demonstrate adherence to instructed precautions during ADL tasks. 2=Patient will verbalize/demonstrate understanding of assistive devices/ modifications for ADL. 3=Patient will improve strength/tolerance for activity to enable patient to perform ADL's. OT Care Home Goals Claim Auditor Goals Time Frame: 4 weeks Eating (FIM): 1 Grooming(FIM): 6 Bathing(FIM): 6 Upper Body Dressing(FIM): 6 Lower Body Dressing(FIM): 5 Toileting(FIM): 5 Transfers (B,C,W/C) (FIM): 5 Toilet/Commode Transfer(FIM): 5 Shower Transfer(FIM): 5 Comprehension(FIM): 6 Expression (FIM): 5 Social Interaction(FIM): 5 Problem Solving(FIM): 5 Memory(FIM): 5 Additional Goals: 2-Verbalize Understanding, 3-ImproveStrength/Enrrique 1=Demonstrate adherence to instructed precautions during ADL tasks. 2=Patient will verbalize/demonstrate understanding of assistive devices/ modifications for ADL. 3=Patient will improve strength/tolerance for activity to enable patient to perform ADL's. OT Education/Plan Problem List/Assessment Pt would benefit from skilled OT to increase her independence in basic self care to allow her to return home safely Discharge Recommendations Plan/Recommendations: Continue POC Treatment Plan/Plan of Care Patient would benefit from OT for education, treatment and training to promote independence in ADL's, mobility, safety and/or upper extremity function for ADL' s. Plan of Care: ADL Retraining, Caregiver Training, Functional Mobility, Orthotic Fitting/Training, UE Funct Exercise/Act, UE Neuromus Re-Ed/Coord Treatment Duration: 4 weeks Visits Per Week: 10-11 Minutes/Day (M-F): 75-90 Minutes/Day (Sat/Maddox): prn Agreement: Yes Rehab Potential: Guarded Time/GCodes Start Time: 10:00 Stop Time: 11:00 Total Time Billed (hr/min): 60 Billed Treatment Time visit, 30 minutes exercise, 30 minutes ADL KELLY ATKINS OT Jan 05, 2016 12:55
--- NOTE | 2016-01-05 15:34 | Physical Therapy Daily Note ---
PT Daily Note-Current Subjective Pt is sitting in W/C in room after just finishing OT. Pt reports feeling tired. Pt agrees to PT. Pain Numeric Pain Scale: 0-No Pain Location: No Pain Reported Mental Status Patient Orientation: Person, Place, Situation Attachments: Other-See Comments Trach. and Feeding Tube Transfers Scootin Supine to/from Sit: 3 Sit to/from Stand: 4 Bed to/from Chair: 4 Weight Bearing Weight Bearing Restriction: Full Weight Bearing Location Restriction: LE Bilateral Pt's legs get like jello upon standing. Gait Training Distance (FIM): 0=does not occure Distance: 0' Gait Level of Assist: 3 Gait Persons Needed: 1 Gait Assistive Device: FWW Pt's legs got like jello and can't support her. Wheelchair Training Wheelchair Distance: 6=474-69 ft Distance: 100' Wheelchair Level of Assist: 3 Exercises Seated Therapy Exercises: Ankle pumps, Long arc quads, Hip flexion, Kicking activity, Hip abd/add Seated Reps: 15 Treatments Pt is propelled to Therapy Gym. Pt transfers to [facility] using SPT and uses for 7m at Workload 1. Pt then transfers back to W/C for seated EX. Pt completes EX before needing to return to room for Trach suction and feeding. Pt is transferred back to bed at end of tx to rest at Min-Mod A. Pt is left with all needs met at end of tx. Assessment Current Status: Fair Progress Pt fatigues easy and needs rest breaks. Pt needs encouragement for tx. PT Short Term Goals Short Term Goals Time Frame: Two Weeks Transfers (B,C,W/C) (FIM): 5 Gait (FIM): 1 Distance (FIM): 1=up to 49 ft Gait Distance Comment: 25' Gait Level of Assist: 3 Gait Assistive Device: FWW Wheelchair (FIM): 1 Wheelchair distance (FIM): 1=up to 49 ft Wheelchair Distance: 25' Wheelchair Level of Assist: 4 PT Aluminum Container Tester Goals Aluminum Container Tester Goals Time Frame: 4 wks Transfers (B,C,W/C) (FIM): 5 Gait (FIM): 1 Gait distance (FIM): 1=up to 49 ft Distance: 45' Gait Level of Assist: 4 Gait Assistive Device: FWW Stairs (FIM): 1 # of Steps: 4 Stairs Level Of Assist: 4 PT Plan Problem List Problem List: Activity Tolerance, Functional Strength, Safety, Balance, Gait, Transfer, Bed Mobility Treatment/Plan Treatment Plan: Continue Plan of Care Treatment Plan: Bed Mobility, Education, Functional Activity Enrrique, Functional Strength, Group Therapy, Gait, Safety, Therapeutic Exercise, Transfers Treatment Duration: 4 wks Visits Per Week: 10-11 Minutes/Day (M-F): 60-90 Minutes/Day (Sat/Maddox): PRN Safety Risks/Education Patient Education: Transfer Techniques, Correct Positioning, Safety Issues Teaching Recipient: Patient Teaching Methods: Discussion Response to Teaching: Verbalize Understanding Time/GCodes Time In: 1100 Time Out: 1200 Total Billed Treatment Time: 60 Total Billed Treatment visit, EX X2 (30m), FA (15m) & GT (15m) LUISA DASILVA COMPLIANCE REVIEW OFFICER Jan 05, 2016 15:34
--- NOTE | 2016-01-05 15:38 | Occupational Ther Daily Note ---
OT Current Status-Daily Note Subjective Pt seen in room, up in bed, asleep but easily awakened and agreeable to OT Mental Status/Objective Functional [place] Measure 0=Not Assessed/NA 4=Minimal Assistance 1=Total Assistance 5=Supervision or Setup 2=Maximal Assistance 6=Modified [place] 3=Moderate Assistance 7=Complete [place] Other Treatment Pt did 12-15 repetitions bilat UE exercise to strengthen arms to help with transfers and ADLs. Did exercises without additional resistance. Worked on elbow extension against gravity, with pt able to extend elbows fully but with difficulty and no resistance. Pt education on a couple of these exercises that she can do on her own and why they are important. pt left up in bed, all needs met. OT Short Term Goals Short Term Goals Time Frame: 2 weeks Lower Body Dressing(FIM): 4 Toileting(FIM): 4 Transfers (B,C,W/C) (FIM): 5 Toilet/Commode Transfer(FIM): 4 Shower Transfer(FIM): 5 1=Demonstrate adherence to instructed precautions during ADL tasks. 2=Patient will verbalize/demonstrate understanding of assistive devices/ modifications for ADL. 3=Patient will improve strength/tolerance for activity to enable patient to perform ADL's. OT Help Desk Support Goals [facility] Goals Time Frame: 4 weeks Eating (FIM): 1 Grooming(FIM): 6 Bathing(FIM): 6 Upper Body Dressing(FIM): 6 Lower Body Dressing(FIM): 5 Toileting(FIM): 5 Transfers (B,C,W/C) (FIM): 5 Toilet/Commode Transfer(FIM): 5 Shower Transfer(FIM): 5 Comprehension(FIM): 6 Expression (FIM): 5 Social Interaction(FIM): 5 Problem Solving(FIM): 5 Memory(FIM): 5 Additional Goals: 2-Verbalize Understanding, 3-ImproveStrength/Enrrique 1=Demonstrate adherence to instructed precautions during ADL tasks. 2=Patient will verbalize/demonstrate understanding of assistive devices/ modifications for ADL. 3=Patient will improve strength/tolerance for activity to enable patient to perform ADL's. OT Education/Plan Problem List/Assessment Pt would benefit from skilled OT to increase her independence in basic self care to allow her to return home safely Discharge Recommendations Plan/Recommendations: Continue POC Treatment Plan/Plan of Care Patient would benefit from OT for education, treatment and training to promote independence in ADL's, mobility, safety and/or upper extremity function for ADL' s. Plan of Care: ADL Retraining, Caregiver Training, Functional Mobility, Orthotic Fitting/Training, UE Funct Exercise/Act, UE Neuromus Re-Ed/Coord Treatment Duration: 4 weeks Visits Per Week: 10-11 Minutes/Day (M-F): 75-90 Minutes/Day (Sat/Maddox): prn Agreement: Yes Rehab Potential: Guarded Time/GCodes Start Time: 13:40 Stop Time: 13:55 Total Time Billed (hr/min): 15 Billed Treatment Time visit, 15 minutes exercise KELLY ATKINS OT Jan 05, 2016 15:38
--- NOTE | 2016-01-05 16:14 | Physical Therapy Daily Note ---
PT Daily Note-Current Subjective Pt was supine in bed upon arrival. RT is wanting tx as well as pt reports fatigue. Pt agrees to PT Ex in bed. Pain Numeric Pain Scale: 0-No Pain Location: No Pain Reported Mental Status Patient Orientation: Person, Place, Situation Attachments: Other-See Comments (Trach. and Feeding tube) Exercises Supine Ex: Ankle pumps, Quad Set, Heel Slides, Straight leg raise, Hip abd/add Supine Reps: 15 Treatments Pt completes supine EX after suction and breathing tx from RT. Pt is left supine in bed with all needs met at end of tx. Assessment Current Status: Fair Progress Pt continues to fatigue easy and gets jello legs upon trying to transfer or stand. PT Short Term Goals Short Term Goals Time Frame: Two Weeks Transfers (B,C,W/C) (FIM): 5 Gait (FIM): 1 Distance (FIM): 1=up to 49 ft Gait Distance Comment: 25' Gait Level of Assist: 3 Gait Assistive Device: FWW Wheelchair (FIM): 1 Wheelchair distance (FIM): 1=up to 49 ft Wheelchair Distance: 100' Wheelchair Level of Assist: 4 PT Intermediate Goals Marshmallow Maker Goals Time Frame: 4 wks Transfers (B,C,W/C) (FIM): 5 Gait (FIM): 1 Gait distance (FIM): 1=up to 49 ft Distance: 45' Gait Level of Assist: 4 Gait Assistive Device: FWW Stairs (FIM): 1 # of Steps: 4 Stairs Level Of Assist: 4 PT Plan Problem List Problem List: Activity Tolerance, Functional Strength, Safety, Balance, Gait, Transfer, Bed Mobility Treatment/Plan Treatment Plan: Continue Plan of Care Treatment Plan: Bed Mobility, Education, Functional Activity Enrrique, Functional Strength, Group Therapy, Gait, Safety, Therapeutic Exercise, Transfers Treatment Duration: 4 wks Visits Per Week: 10-11 Minutes/Day (M-F): 60-90 Minutes/Day (Sat/Maddox): PRN Safety Risks/Education Patient Education: Transfer Techniques, Correct Positioning, Disease Process, Safety Issues Teaching Recipient: Patient Teaching Methods: Discussion Response to Teaching: Reinforcement Needed Time/GCodes Time In: 1430 Time Out: 1500 Total Billed Treatment Time: 30 Total Billed Treatment visit, FA (15m) & EX (15m) LUISA DASILVA VEGETABLE LOADER Jan 05, 2016 16:14
[2016-01-05] MEDS: ENOXAPARIN 40 MG/0.4 ML (LOVENOX) SYR SC SCH (16:17)
[2016-01-05 18:32] VITALS: BP 97/63
[2016-01-06] MEDS: NYSTATIN ORAL SUSP 5 ML UDC PO SCH ×5 (00:03→23:33)
[2016-01-06] MEDS: RT-ALBUTEROL/IPRATROPIUM 3 ML (DUONEB) VIAL INH SCH ×4 (02:37→21:55)
[2016-01-06] MEDS: aCETylcysteine 20% (MUCOMYST) 30ML SOLN VIAL INH SCH ×4 (02:37→21:56)
[2016-01-06] MEDS: METOCLOPRAMIDE 10MG/10ML ORAL SOL(REGLAN) UDC JT SCH ×4 (05:25→21:40)
[2016-01-06 05:39] VITALS: BP 99/65
--- NOTE | 2016-01-06 08:27 | Physical Therapy Daily Note ---
PT Daily Note-Current Subjective Patient is in bed and agrees to therapy. Patient reports right shoulder pain 5/ 10. Pain Numeric Pain Scale: 5-Moderate Pain Location: Right Location Body Site: Shoulder (biceps tendon) Pain Description: Ache Mental Status Patient Orientation: Normal For Age JPEG Transfers Transfers (B, C, W/C) (FIM): 3 Scootin Rollin Supine to/from Sit: 5 Sit to/from Stand: 3 Bed to/from Chair: 3 sit <> stand transfer training to FWW x 3 reps and at parallel bars x 5 standing x 1 min each. Patient requires recovery periods due to weakness and fatigue. Gait Training Gait (FIM): 1 Distance (FIM): 1=up to 49 ft Distance: 10' x 2; 25' x 1 Gait Level of Assist: 3 Gait Persons Needed: 1 Gait Assistive Device: FWW difficulty with maintaining balance and demonstrates right lean due to right shoulder pain. Patient is able to correct with verbal and tactile cues. noted diminished coordination/proprioception due to neuropathy and inactivity Wheelchair Training Wheelchair (FIM): 1 Wheelchair Distance: 1=up to 49 ft Distance: 25' x 4 Wheelchair Level of Assist: 5 SBA with verbal cues for propulsion and motivation. Patient requires encouragement to participate, however, does participate with PT. Exercises Supine Ex: Bridging, Ankle pumps, Quad Set, Heel Slides, Straight leg raise, Hip abd/add Supine Reps: 15 2 sets bilaterally Assessment Current Status: Excellent Progress Patient fatigues with treatment, however, is highly motivated with progress. Patient has a pass for Thanksgiving with her family and is very excited. PT to increase activity as tolerated by patient. PT Short Term Goals Short Term Goals Time Frame: Two Weeks Transfers (B,C,W/C) (FIM): 5 Gait (FIM): 1 Distance (FIM): 1=up to 49 ft Gait Distance Comment: 25' Gait Level of Assist: 3 Gait Assistive Device: FWW Wheelchair (FIM): 1 Wheelchair distance (FIM): 1=up to 49 ft Wheelchair Distance: 100' Wheelchair Level of Assist: 4 PT Mcc Goals Hospitalist Physician Goals Time Frame: 4 wks Transfers (B,C,W/C) (FIM): 5 Gait (FIM): 1 Gait distance (FIM): 1=up to 49 ft Distance: 45' Gait Level of Assist: 4 Gait Assistive Device: FWW Stairs (FIM): 1 # of Steps: 4 Stairs Level Of Assist: 4 PT Plan Treatment/Plan Treatment Plan: Continue Plan of Care Treatment Plan: Bed Mobility, Education, Functional Activity Enrrique, Functional Strength, Group Therapy, Gait, Safety, Therapeutic Exercise, Transfers Treatment Duration: 4 wks Visits Per Week: 10-11 Minutes/Day (M-F): 60-90 Minutes/Day (Sat/Maddox): PRN Time/GCodes Time In: 655 Time Out: 815 Total Billed Treatment Time: 80 Total Billed Treatment 1 visit EX x 2 30 min [facility] 20 min Gt x 2 30 min TONG STROUD PT Jan 06, 2016 08:27
[2016-01-06] MEDS: FAMOTIDINE 20 MG (PEPCID) TABLET JT SCH ×2 (09:27→21:40)
[2016-01-06] MEDS: guaiFENesin SYRUP 100 MG/5 ML 10 ML (ROBITUSSIN SF) JT SCH ×4 (09:27→21:40)
[2016-01-06] MEDS: LACTOBACILLUS Acidoph/Bulgar (LACTINEX/FLORANEX) TAB JT SCH ×4 (09:27→21:40)
[2016-01-06] MEDS: DIPHENOXYLATE/ATROPINE 2.5MG/0.025MG (LOMOTIL) TAB JT SCH ×2 (09:27→21:40)
[2016-01-06] MEDS: MAGNESIUM OXIDE (MAG-OX)400 MG TAB JT SCH ×2 (09:27→17:17)
--- NOTE | 2016-01-06 12:44 | Occupational Ther Daily Note ---
OT Current Status-Daily Note Subjective Pt seen in room, planning for therapeutic pass home this afternoon. Agreeable to ADLs, including shower Appearance Alert, cooperative Mental Status/Objective Functional [place] Measure 0=Not Assessed/NA 4=Minimal Assistance 1=Total Assistance 5=Supervision or Setup 2=Maximal Assistance 6=Modified [place] 3=Moderate Assistance 7=Complete [place] Attachments: Central Line, PEG Tube, Other-See Comments (trach) PEG, trach and central covered appropriately with plastic prior to shower ADL-Treatment All ADLs took longer than usual due to additional preparations and protection of central line and other sites Grooming (FIM): 5 (Combed hair setup) Bathing (FIM): 4 (Pt was able to wash and dry all parts except bottom and back , She was able to maintain hold of washcloth in R hand and towel as well. Shower chair, hand held shower. Had help to wash hair to keep water off trach and IV ) Upper Body (FIM): 4 (She needed just a little help to get robe off but was able to put on shirt and get it over her head. Help to adjust it in back. ) Lower Body Dressing (FIM): 1 (Help getting Depends on while sitting up in shower chair. help getting sweat pants on, shoes and socks. She pulled pants up to thighs and stood with just minimal assistance, FWW for someone else to pull her pants up over hips. ) Transfers (B, C, W/C) (FIM): 4 (Min assist to get shoulder up off bed. Scooted min assist to EOB. Stood min assist to transfer to shower chair, using FWW. Needs cues to not sit too soon. Transferred back to bed min assist, taking steps sideways toward head of bed. ) Shower Transfer(FIM): 4 (Min assist to stand to get on/off shower chair. She was able to scoot herself back in shower chair, pushing up from arm rests and with foot rests) present at end of tx. Pt/ educ how to remove and put on leg rests to w/c Education OT Patient Education: Energy conservation, Instructions to caregiver, Modified ADL techniques, Progress toward Goal/Update tx plan, Transfer techniques Teaching Recipient: Patient, Significant Other Response to Teaching: Verbalize Understanding, Return Demonstration OT Short Term Goals Short Term Goals Time Frame: 2 weeks Lower Body Dressing(FIM): 4 Toileting(FIM): 4 Transfers (B,C,W/C) (FIM): 5 Toilet/Commode Transfer(FIM): 4 Shower Transfer(FIM): 5 1=Demonstrate adherence to instructed precautions during ADL tasks. 2=Patient will verbalize/demonstrate understanding of assistive devices/ modifications for ADL. 3=Patient will improve strength/tolerance for activity to enable patient to perform ADL's. OT Computer Networking Instructor Goals [facility] Goals Time Frame: 4 weeks Eating (FIM): 1 Grooming(FIM): 6 Bathing(FIM): 6 Upper Body Dressing(FIM): 6 Lower Body Dressing(FIM): 5 Toileting(FIM): 5 Transfers (B,C,W/C) (FIM): 5 Toilet/Commode Transfer(FIM): 5 Shower Transfer(FIM): 5 Comprehension(FIM): 6 Expression (FIM): 5 Social Interaction(FIM): 5 Problem Solving(FIM): 5 Memory(FIM): 5 Additional Goals: 2-Verbalize Understanding, 3-ImproveStrength/Enrrique 1=Demonstrate adherence to instructed precautions during ADL tasks. 2=Patient will verbalize/demonstrate understanding of assistive devices/ modifications for ADL. 3=Patient will improve strength/tolerance for activity to enable patient to perform ADL's. OT Education/Plan Problem List/Assessment Pt would benefit from skilled OT to increase her independence in basic self care to allow her to return home safely Discharge Recommendations Plan/Recommendations: Continue POC Treatment Plan/Plan of Care Patient would benefit from OT for education, treatment and training to promote independence in ADL's, mobility, safety and/or upper extremity function for ADL' s. Plan of Care: ADL Retraining, Caregiver Training, Functional Mobility, Orthotic Fitting/Training, UE Funct Exercise/Act, UE Neuromus Re-Ed/Coord Treatment Duration: 4 weeks Visits Per Week: 10-11 Minutes/Day (M-F): 75-90 Minutes/Day (Sat/Maddox): prn Agreement: Yes Rehab Potential: Guarded Time/GCodes Start Time: 10:30 Stop Time: 11:30 Total Time Billed (hr/min): 60 Billed Treatment Time visit, 60 minutes ADL KELLY ATKINS OT Jan 06, 2016 12:43
--- NOTE | 2016-01-06 13:09 | Therapy Group Daily Note ---
Therapy Daily Group Note Patient Education Topic Home Safety Exercises Fine Motor, UE Exercise Other/Notes Pt actively participated in OT/PT lunch group. Group consisted of introductions (name, Thanksgiving traditions), socialization, education on kitchen safety, critical thinking/memory activity and lunch. Pt appropriately introduced self and contributed to discussion. Pt was able to complete activity without difficulty. Pt is NPO and unable to eat during group. Pt was able to read and assist with thanksgiving facts. with pt at group and in room. Call light/phone in reach. All needs met in room. Start Time: 11:30 Stop Time: 12:40 Total Billed Treatment Time: 50 Total Billed Treatment 1-GRP (pt only came to group for 50 min due to having respiratory therapy at beginning of group) HUMBERTO LUNA Jan 06, 2016 13:09
[2016-01-06] MEDS: ENOXAPARIN 40 MG/0.4 ML (LOVENOX) SYR SC SCH (16:15)
[2016-01-06 17:51] VITALS: BP 93/61
[2016-01-06] MEDS: APAP 325 MG/10.15 ML LIQ (TYLENOL) UDC JT PRN (22:21)
[2016-01-06] MEDS: ONDANSETRON 4 MG/2 ML (SDV) Z0FRAN IVP PRN (23:32)
[2016-01-07] MEDS: aCETylcysteine 20% (MUCOMYST) 30ML SOLN VIAL INH SCH ×4 (02:48→20:52)
[2016-01-07] MEDS: RT-ALBUTEROL/IPRATROPIUM 3 ML (DUONEB) VIAL INH SCH ×4 (02:48→20:52)
[2016-01-07 05:43] VITALS: BP 93/58
[2016-01-07] MEDS: NYSTATIN ORAL SUSP 5 ML UDC PO SCH ×4 (06:00→23:31)
[2016-01-07] MEDS: METOCLOPRAMIDE 10MG/10ML ORAL SOL(REGLAN) UDC JT SCH ×4 (06:11→20:26)
[2016-01-07] MEDS: ONDANSETRON 4 MG/2 ML (SDV) Z0FRAN IVP PRN (07:00)
[2016-01-07] MEDS: DIPHENOXYLATE/ATROPINE 2.5MG/0.025MG (LOMOTIL) TAB JT SCH ×2 (08:02→20:26)
[2016-01-07] MEDS: guaiFENesin SYRUP 100 MG/5 ML 10 ML (ROBITUSSIN SF) JT SCH ×4 (08:02→20:26)
[2016-01-07] MEDS: LACTOBACILLUS Acidoph/Bulgar (LACTINEX/FLORANEX) TAB JT SCH ×4 (08:02→20:26)
[2016-01-07] MEDS: MAGNESIUM OXIDE (MAG-OX)400 MG TAB JT SCH ×2 (08:03→17:22)
[2016-01-07] MEDS: FAMOTIDINE 20 MG (PEPCID) TABLET JT SCH ×2 (08:03→20:26)
--- NOTE | 2016-01-07 09:07 | Physical Therapy Daily Note ---
PT Daily Note-Current Subjective Pt only reports (R) LE weakness and soreness. Mental Status Patient Orientation: Person, Place, Time, Situation Transfers Transfers (B, C, W/C) (FIM): 3 Scootin Rollin Supine to/from Sit: 3 Sit to/from Stand: 3 Bed to/from Chair: 3 Gait Training Distance (FIM): 1=up to 49 ft Distance: 8ft x3 Gait Level of Assist: 3 Gait Persons Needed: 1 Gait Assistive Device: FWW Pt ambulated 8ft x3 with FWW. We then moved to the parallel bars to perform ambulation. She ambulated forward and back 6-8ft x6. Mod assist for sit to stand and during ambulation. Exercises Supine Ex: LE Protocol Supine Reps: 15 Seated Therapy Exercises: LE Protocol Seated Reps: 15 Assist for (R) LE ex 50% Assessment Current Status: Fair Progress (R) knee gave out consistently during ambulation. No tech to follow with wheelchair or would have spent more time with FWW than with parallel bars. PT Short Term Goals Short Term Goals Time Frame: Two Weeks Transfers (B,C,W/C) (FIM): 5 Gait (FIM): 1 Distance (FIM): 1=up to 49 ft Gait Distance Comment: 25' Gait Level of Assist: 3 Gait Assistive Device: FWW Wheelchair (FIM): 1 Wheelchair distance (FIM): 1=up to 49 ft Wheelchair Distance: 25' x 4 Wheelchair Level of Assist: 4 PT Manager Dialysis Goals Prison Goals Time Frame: 4 wks Transfers (B,C,W/C) (FIM): 5 Gait (FIM): 1 Gait distance (FIM): 1=up to 49 ft Distance: 45' Gait Level of Assist: 4 Gait Assistive Device: FWW Stairs (FIM): 1 # of Steps: 4 Stairs Level Of Assist: 4 PT Plan Treatment/Plan Treatment Plan: Continue Plan of Care Treatment Plan: Bed Mobility, Education, Functional Activity Enrrique, Functional Strength, Group Therapy, Gait, Safety, Therapeutic Exercise, Transfers Treatment Duration: 4 wks Visits Per Week: 10-11 Minutes/Day (M-F): 60-90 Minutes/Day (Sat/M[place]): PRN Time/GCodes Time In: 0915 Time Out: 1000 Total Billed Treatment Time: 45 Total Billed Treatment ex x25', gt x20' NAIMA MENA PT Jan 07, 2016 09:07
--- NOTE | 2016-01-07 10:24 | Speech Therapy Daily Note ---
Speech Daily Progress Note Subjective The patient was sitting upright in bed upon entrance. The patient greeted the clinician appropriately and agreed to participate in dysphagia therapy. To note , the patient's secretions appeared to be reduced, however, she stated respiratory was recently present for suctioning. Objective Dysphagia Exercises: The patient demonstrated good accuracy with dysphagia exercises on this date. The patient displayed 90% accuracy with minimal clinician verbal cueing with laryngeal, pharyngeal, and base of tongue strengthening exercises. The patient agreed to continues exercises independently from her scheduled therapy sessions. Assessment Assessment Current Status: Fair Progress Treatment Plan Continue Plan of Care Communication Comprehension: 5 Expression: 5 Social Cognition Social Interaction: 5 Problem Solvin Memory: 5 Speech Short Term Goals Short Term Goals Short Term Goals 1. The patient will independently demonstrate laryngeal, pharyngeal, and base of tongue exercises. Time Frame-STG: Two Weeks Speech Track Walker Goals Halfway Goals 1. The patient will tolerate PO trials of the least restrictive consistency without signs/symptoms of aspiration or laryngeal penetration. Time Frame: Eight Weeks Comprehension: 6 Expression: 5 Social Interaction: 5 Problem Solvin Memory: 5 Speech-Plan Treatment Plan Speech Therapy Treatment Plan: Continue Plan of Care Treatment Duration: 30 # of days/week 4 to 5 Visits Per Week: 4 to 5 Minutes/Day (M-F): 30 Rehab Potential: Guarded Safety Risks/Education Teaching Recipient: Patient Teaching Methods: Demonstration, Handout, Discussion Response to Teaching: Verbalize Understanding, Return Demonstration Education Topics Provided: Dysphagia Exercises Time Speech Therapy Time In: 09:00 Speech Therapy Time Out: 09:30 Total Billed Time: 30 Billed Treatment Time Bina ASAEL GILBERT VORA Jan 07, 2016 10:24
--- NOTE | 2016-01-07 13:33 | Occupational Ther Daily Note ---
OT Current Status-Daily Note Subjective Pt seen in room, up in bed, agrees to OT but reluctant to get up out of bed. No pain mentioned Appearance Alert, cooperative Mental Status/Objective Functional [place] Measure 0=Not Assessed/NA 4=Minimal Assistance 1=Total Assistance 5=Supervision or Setup 2=Maximal Assistance 6=Modified [place] 3=Moderate Assistance 7=Complete [place] Attachments: Central Line, PEG Tube Other Treatment Pt needs encouragement at times to participate. Needed min assist supine to sit EOB, with head of bed somewhat up.Pt transferred min-mod assist to w/c from bed , FWW. Transported to gym per w/c. Pt did 5 minutes bilat UE ex on arm bike set at 5W resistance, with no breaks (increased time). Also did arc activity with no extensions x 2, including crossover. Added short extension and pt was able to do one rep without assisting R arm with L. Able to place 1" pegs with 1/4" stems with L hand but difficulty pressing them in to board with R hand. Worked on removing them with R hand and placing/manipulating 3/4" pegs in board, working on coordination throughout all activities. Pt returned to room, transferred back to bed with min-mod assistance, FWW and able to get herself into bed with HOB slightly elevated. All needs met. Education OT Patient Education: Exercise program, Progress toward Goal/Update tx plan, Purpose of tx/functional activities Teaching Recipient: Patient Response to Teaching: Reinforcement Needed OT Short Term Goals Short Term Goals Time Frame: 2 weeks Lower Body Dressing(FIM): 4 Toileting(FIM): 4 Transfers (B,C,W/C) (FIM): 5 Toilet/Commode Transfer(FIM): 4 Shower Transfer(FIM): 5 1=Demonstrate adherence to instructed precautions during ADL tasks. 2=Patient will verbalize/demonstrate understanding of assistive devices/ modifications for ADL. 3=Patient will improve strength/tolerance for activity to enable patient to perform ADL's. OT Retort Furnace Operator Goals Care Home Goals Time Frame: 4 weeks Eating (FIM): 1 Grooming(FIM): 6 Bathing(FIM): 6 Upper Body Dressing(FIM): 6 Lower Body Dressing(FIM): 5 Toileting(FIM): 5 Transfers (B,C,W/C) (FIM): 5 Toilet/Commode Transfer(FIM): 5 Shower Transfer(FIM): 5 Comprehension(FIM): 6 Expression (FIM): 5 Social Interaction(FIM): 5 Problem Solving(FIM): 5 Memory(FIM): 5 Additional Goals: 2-Verbalize Understanding, 3-ImproveStrength/Enrrique 1=Demonstrate adherence to instructed precautions during ADL tasks. 2=Patient will verbalize/demonstrate understanding of assistive devices/ modifications for ADL. 3=Patient will improve strength/tolerance for activity to enable patient to perform ADL's. OT Education/Plan Problem List/Assessment Pt would benefit from skilled OT to increase her independence in basic self care to allow her to return home safely Discharge Recommendations Plan/Recommendations: Continue POC Treatment Plan/Plan of Care Patient would benefit from OT for education, treatment and training to promote independence in ADL's, mobility, safety and/or upper extremity function for ADL' s. Plan of Care: ADL Retraining, Caregiver Training, Functional Mobility, Orthotic Fitting/Training, UE Funct Exercise/Act, UE Neuromus Re-Ed/Coord Treatment Duration: 4 weeks Visits Per Week: 10-11 Minutes/Day (M-F): 75-90 Minutes/Day (Sat/Maddox): prn Agreement: Yes Rehab Potential: Guarded Time/GCodes Start Time: 11:15 Stop Time: 12:00 Total Time Billed (hr/min): 45 Billed Treatment Time visit, 45 minutes neuromotor KELLY ATKINS OT Jan 07, 2016 13:33
--- NOTE | 2016-01-07 14:02 | Therapy Group Daily Note ---
Therapy Daily Group Note Other/Notes Each patient had group therapy in the common area of rehab. Each patient began by introducing themselves and stating the funniest thing they have ever seen, which works on memory/recall. Patients had to perform group exercises of upper extremities, lower extremities, trunk, and cervical exercises. They also had to perform an activity that involved memory, critical thinking, and problem solving. After therapy, each patient was taken back to their room with call light within reach. Start Time: 12:30 Stop Time: 13:30 Total Billed Treatment Time: 60 Total Billed Treatment 1 visit GRP 60 min JUAN SMITH PT Jan 07, 2016 14:02
[2016-01-07] MEDS: ENOXAPARIN 40 MG/0.4 ML (LOVENOX) SYR SC SCH (16:11)
[2016-01-07 17:58] VITALS: BP 91/60
[2016-01-08] MEDS: ONDANSETRON 4 MG/2 ML (SDV) Z0FRAN IVP PRN ×2 (00:50→23:16)
[2016-01-08] MEDS: aCETylcysteine 20% (MUCOMYST) 30ML SOLN VIAL INH SCH ×4 (03:07→19:58)
[2016-01-08] MEDS: RT-ALBUTEROL/IPRATROPIUM 3 ML (DUONEB) VIAL INH SCH ×4 (03:07→19:58)
[2016-01-08] MEDS: METOCLOPRAMIDE 10MG/10ML ORAL SOL(REGLAN) UDC JT SCH ×4 (05:21→21:45)
[2016-01-08] MEDS: NYSTATIN ORAL SUSP 5 ML UDC PO SCH ×4 (05:21→23:17)
[2016-01-08 05:44] VITALS: BP 92/58
[2016-01-08] MEDS: APAP 325 MG/10.15 ML LIQ (TYLENOL) UDC JT PRN (06:53)
[2016-01-08] MEDS: LACTOBACILLUS Acidoph/Bulgar (LACTINEX/FLORANEX) TAB JT SCH ×4 (09:42→21:45)
[2016-01-08] MEDS: FAMOTIDINE 20 MG (PEPCID) TABLET JT SCH ×2 (09:42→21:45)
[2016-01-08] MEDS: MAGNESIUM OXIDE (MAG-OX)400 MG TAB JT SCH ×2 (09:42→17:41)
[2016-01-08] MEDS: DIPHENOXYLATE/ATROPINE 2.5MG/0.025MG (LOMOTIL) TAB JT SCH ×2 (09:42→21:45)
[2016-01-08] MEDS: guaiFENesin SYRUP 100 MG/5 ML 10 ML (ROBITUSSIN SF) JT SCH ×4 (09:42→21:45)
--- NOTE | 2016-01-08 09:44 | Physical Therapy Daily Note ---
PT Daily Note-Current Subjective Agrees to Rx. Not sure when she will get to go home Mental Status Attachments: PEG Tube Transfers Transfers (B, C, W/C) (FIM): 3 Scootin Rollin Supine to/from Sit: 4 Sit to/from Stand: 3 Bed to/from Chair: 3 Gait Training 4 small steps bed to chair , side step dance fashion with mod assist Exercises Supine Ex: Bridging, Ankle pumps, Quad Set, Rolling, Glut sets, Heel Slides, Knee to chest, Scooting, Straight leg raise, Hip abd/add Supine Reps: 15 Treatments standing and pregait activity , pt. fearful and whimpers wants to sit, this WATERSHED PROGRAM MANAGER reminding pt. of her goals etc Assessment Current Status: Good Progress PT Short Term Goals Short Term Goals Time Frame: Two Weeks Transfers (B,C,W/C) (FIM): 5 Gait (FIM): 1 Distance (FIM): 1=up to 49 ft Gait Distance Comment: 25' Gait Level of Assist: 3 Gait Assistive Device: FWW Wheelchair (FIM): 1 Wheelchair distance (FIM): 1=up to 49 ft Wheelchair Distance: 25' x 4 Wheelchair Level of Assist: 4 PT Production Support Developer Goals Production Support Developer Goals Time Frame: 4 wks Transfers (B,C,W/C) (FIM): 5 Gait (FIM): 1 Gait distance (FIM): 1=up to 49 ft Distance: 45' Gait Level of Assist: 4 Gait Assistive Device: FWW Stairs (FIM): 1 # of Steps: 4 Stairs Level Of Assist: 4 PT Plan Treatment/Plan Treatment Plan: Continue Plan of Care Treatment Plan: Bed Mobility, Education, Functional Activity Enrrique, Functional Strength, Group Therapy, Gait, Safety, Therapeutic Exercise, Transfers Treatment Duration: 4 wks Visits Per Week: 10-11 Minutes/Day (M-F): 60-90 Minutes/Day (Sat/Maddox): PRN Safety Risks/Education Patient Education: Transfer Techniques, Correct Positioning Teaching Recipient: Patient Teaching Methods: Demonstration, Discussion Response to Teaching: Verbalize Understanding, Return Demonstration, Reinforcement Needed Time/GCodes Time In: 830 Time Out: 900 Total Billed Treatment Time: 30 Total Billed Treatment 1,EX15m,FA15m G Codes Necessary: KATLIN Maynard WATERSHED PROGRAM MANAGER Jan 08, 2016 09:44
--- NOTE | 2016-01-08 09:45 | Occupational Ther Daily Note ---
OT Current Status-Daily Note Subjective "OK." Appearance Patient seated at bedside in recliner, pillows used to prop up her distal extremities, more on the right than the left. Mental Status/Objective Patient Orientation: Person, Situation Functional [place] Measure 0=Not Assessed/NA 4=Minimal Assistance 1=Total Assistance 5=Supervision or Setup 2=Maximal Assistance 6=Modified [place] 3=Moderate Assistance 7=Complete [place] Other Treatment Therapy performed at bedside as patient reporting fatigue. Tolerated 25 minutes of fine motor strength work to bilateral hands including AROM for all digital movements followed by moderate resistive putty for the hand intrinsics and coordination. Skills left much better than the right. With pillows removed right , she would list to the right, but could self correct. Independently pulled self forward for pillow to be placed behind her back to bring her forward for therapy session. After 25 minutes, asked to stop due to fatigue. Education OT Patient Education: Correct positioning, Exercise program Teaching Recipient: Patient Teaching Methods: Demonstration, Discussion Response to Teaching: Verbalize Understanding OT Short Term Goals Short Term Goals Time Frame: 2 weeks Lower Body Dressing(FIM): 4 Toileting(FIM): 4 Transfers (B,C,W/C) (FIM): 5 Toilet/Commode Transfer(FIM): 4 Shower Transfer(FIM): 5 1=Demonstrate adherence to instructed precautions during ADL tasks. 2=Patient will verbalize/demonstrate understanding of assistive devices/ modifications for ADL. 3=Patient will improve strength/tolerance for activity to enable patient to perform ADL's. OT Smt Technician Goals [facility]sp Goals Time Frame: 4 weeks Eating (FIM): 1 Grooming(FIM): 6 Bathing(FIM): 6 Upper Body Dressing(FIM): 6 Lower Body Dressing(FIM): 5 Toileting(FIM): 5 Transfers (B,C,W/C) (FIM): 5 Toilet/Commode Transfer(FIM): 5 Shower Transfer(FIM): 5 Comprehension(FIM): 6 Expression (FIM): 5 Social Interaction(FIM): 5 Problem Solving(FIM): 5 Memory(FIM): 5 Additional Goals: 2-Verbalize Understanding, 3-ImproveStrength/Enrrique 1=Demonstrate adherence to instructed precautions during ADL tasks. 2=Patient will verbalize/demonstrate understanding of assistive devices/ modifications for ADL. 3=Patient will improve strength/tolerance for activity to enable patient to perform ADL's. OT Education/Plan Problem List/Assessment Pt would benefit from skilled OT to increase her independence in basic self care to allow her to return home safely Discharge Recommendations Plan/Recommendations: Continue POC Treatment Plan/Plan of Care Patient would benefit from OT for education, treatment and training to promote independence in ADL's, mobility, safety and/or upper extremity function for ADL' s. Plan of Care: ADL Retraining, Caregiver Training, Functional Mobility, Orthotic Fitting/Training, UE Funct Exercise/Act, UE Neuromus Re-Ed/Coord Treatment Duration: 4 weeks Visits Per Week: 10-11 Minutes/Day (M-F): 75-90 Minutes/Day (Sat/Maddox): prn Agreement: Yes Rehab Potential: Guarded Time/GCodes Start Time: 09:10 Stop Time: 09:35 Total Time Billed (hr/min): 25 Billed Treatment Time Visit, ex x 2 units G Codes Necessary: No CONCEPCIÓN BAKER OT Jan 08, 2016 09:45
[2016-01-08] MEDS: ENOXAPARIN 40 MG/0.4 ML (LOVENOX) SYR SC SCH (16:27)
[2016-01-08 18:08] VITALS: BP 93/58
[2016-01-08] MEDS: CATHETER FLUSH 10 ML SYR IV PRN (23:17)
[2016-01-09] MEDS: RT-ALBUTEROL/IPRATROPIUM 3 ML (DUONEB) VIAL INH SCH ×4 (02:27→21:36)
[2016-01-09] MEDS: aCETylcysteine 20% (MUCOMYST) 30ML SOLN VIAL INH SCH ×4 (02:27→21:37)
[2016-01-09] MEDS: NYSTATIN ORAL SUSP 5 ML UDC PO SCH ×3 (05:32→18:00)
[2016-01-09] MEDS: METOCLOPRAMIDE 10MG/10ML ORAL SOL(REGLAN) UDC JT SCH ×4 (05:32→20:30)
[2016-01-09 05:48] VITALS: BP 106/64
[2016-01-09] MEDS: MAGNESIUM OXIDE (MAG-OX)400 MG TAB JT SCH ×2 (09:15→19:03)
[2016-01-09] MEDS: LACTOBACILLUS Acidoph/Bulgar (LACTINEX/FLORANEX) TAB JT SCH ×4 (09:15→20:30)
[2016-01-09] MEDS: FAMOTIDINE 20 MG (PEPCID) TABLET JT SCH ×2 (09:15→20:30)
[2016-01-09] MEDS: guaiFENesin SYRUP 100 MG/5 ML 10 ML (ROBITUSSIN SF) JT SCH ×4 (09:15→20:30)
[2016-01-09] MEDS: DIPHENOXYLATE/ATROPINE 2.5MG/0.025MG (LOMOTIL) TAB JT SCH ×2 (09:15→20:30)
[2016-01-09] MEDS: ENOXAPARIN 40 MG/0.4 ML (LOVENOX) SYR SC SCH (16:51)
[2016-01-09 18:00] VITALS: BP 93/57
[2016-01-10] MEDS: RT-ALBUTEROL/IPRATROPIUM 3 ML (DUONEB) VIAL INH SCH ×4 (03:05→19:21)
[2016-01-10] MEDS: aCETylcysteine 20% (MUCOMYST) 30ML SOLN VIAL INH SCH ×4 (03:05→19:22)
[2016-01-10 05:23] VITALS: BP 90/59
[2016-01-10] MEDS: NYSTATIN ORAL SUSP 5 ML UDC PO SCH ×5 (05:45→23:28)
[2016-01-10] MEDS: METOCLOPRAMIDE 10MG/10ML ORAL SOL(REGLAN) UDC JT SCH ×4 (05:45→20:58)
[2016-01-10] MEDS: FAMOTIDINE 20 MG (PEPCID) TABLET JT SCH ×2 (09:42→20:57)
[2016-01-10] MEDS: guaiFENesin SYRUP 100 MG/5 ML 10 ML (ROBITUSSIN SF) JT SCH ×4 (09:42→20:58)
[2016-01-10] MEDS: LACTOBACILLUS Acidoph/Bulgar (LACTINEX/FLORANEX) TAB JT SCH ×4 (09:42→20:57)
[2016-01-10] MEDS: MAGNESIUM OXIDE (MAG-OX)400 MG TAB JT SCH ×2 (09:42→17:30)
[2016-01-10] MEDS: DIPHENOXYLATE/ATROPINE 2.5MG/0.025MG (LOMOTIL) TAB JT SCH ×2 (09:42→20:57)
--- NOTE | 2016-01-10 10:16 | Speech Therapy Daily Note ---
Speech Daily Progress Note Subjective The patient was laying in bed upon entrance. The patient agreed to dysphagia therapy, however, did report significant fatigue on this date. Objective Dysphagia Exercises: The patient completed ten repetitions of each exercise on this date. The patient continues to demonstrate mild to moderate difficulty with exercises that require the physical swallow, however, is demonstrating improvement and strength with laryngeal/vocal tasks. The patient completed today 's session with 70% accuracy and moderate clinician verbal prompting. To note: The patient was suctioned post therapy by request of patient. Assessment Assessment Current Status: Fair Progress Treatment Plan Continue Plan of Care Communication Comprehension: 5 Expression: 5 Social Cognition Social Interaction: 5 Problem Solvin Memory: 5 Speech Short Term Goals Short Term Goals Short Term Goals 1. The patient will independently demonstrate laryngeal, pharyngeal, and base of tongue exercises. Time Frame-STG: Two Weeks Speech Snf Goals Snf Goals 1. The patient will tolerate PO trials of the least restrictive consistency without signs/symptoms of aspiration or laryngeal penetration. Time Frame: Eight Weeks Comprehension: 6 Expression: 5 Social Interaction: 5 Problem Solvin Memory: 5 Speech-Plan Treatment Plan Speech Therapy Treatment Plan: Continue Plan of Care Treatment Duration: 30 # of days/week 4 to 5 Visits Per Week: 4 to 5 Minutes/Day (M-F): 30 Rehab Potential: Guarded Safety Risks/Education Teaching Recipient: Patient Teaching Methods: Discussion Response to Teaching: Verbalize Understanding Education Topics Provided: Progression towards Goals Time Speech Therapy Time In: 09:45 Speech Therapy Time Out: 10:15 Total Billed Time: 30 Billed Treatment Time 1, ASAEL VIELKAGILBERT ST Jan 10, 2016 10:16
--- NOTE | 2016-01-10 11:06 | Occupational Ther Daily Note ---
OT Current Status-Daily Note Subjective Pt seen in room, up in bed, agreeable to OT. Mentioned tenderness on scalp where she received radiation tx Appearance Alert, cooperative Mental Status/Objective Functional [place] Measure 0=Not Assessed/NA 4=Minimal Assistance 1=Total Assistance 5=Supervision or Setup 2=Maximal Assistance 6=Modified [place] 3=Moderate Assistance 7=Complete [place] ADL-Treatment Pt was able to reach brakes on w/c but did not have adequate strength to lock brakes. Grooming (FIM): 5 (Pt was able to take cap on/off toothpaste tube, put it on toothbrush, brush teeth, rinse mouth, turn water on/off, at sink, w/c level. Brushed hair. Needed a little help to get w/c positioned in front of sink) Transfers (B, C, W/C) (FIM): 4 (Supine to sit and sit to supine with SBA, although uncoordinated. Transfer bed to w/c and back min assist. tends to sit before she is squared up with bed or w/c., FWW) Other Treatment In gym, worked on coordination activities bilat UEs. Pt did arc activity x 2 sets bilat with short extension. She was able to reach rings with R UE and move them without assistance from L UE but cues needed bilat to use fingers for grasp. Pt also worked with 1" wooden cubes and was able to recreate block patterns, both 2 dimensional and 3 dimensional, using bilat UEs with a little incoordination and shaking. At end of tx, pt transferred back into bed, all needs met, 4 rails up. Education OT Patient Education: Modified ADL techniques, Purpose of tx/functional activities Teaching Recipient: Patient Teaching Methods: Discussion Response to Teaching: Verbalize Understanding OT Short Term Goals Short Term Goals Time Frame: 2 weeks Lower Body Dressing(FIM): 4 Toileting(FIM): 4 Transfers (B,C,W/C) (FIM): 5 Toilet/Commode Transfer(FIM): 4 Shower Transfer(FIM): 5 1=Demonstrate adherence to instructed precautions during ADL tasks. 2=Patient will verbalize/demonstrate understanding of assistive devices/ modifications for ADL. 3=Patient will improve strength/tolerance for activity to enable patient to perform ADL's. OT Mcfp Goals Mcfp Goals Time Frame: 4 weeks Eating (FIM): 1 Grooming(FIM): 6 Bathing(FIM): 6 Upper Body Dressing(FIM): 6 Lower Body Dressing(FIM): 5 Toileting(FIM): 5 Transfers (B,C,W/C) (FIM): 5 Toilet/Commode Transfer(FIM): 5 Shower Transfer(FIM): 5 Comprehension(FIM): 6 Expression (FIM): 5 Social Interaction(FIM): 5 Problem Solving(FIM): 5 Memory(FIM): 5 Additional Goals: 2-Verbalize Understanding, 3-ImproveStrength/Enrrique 1=Demonstrate adherence to instructed precautions during ADL tasks. 2=Patient will verbalize/demonstrate understanding of assistive devices/ modifications for ADL. 3=Patient will improve strength/tolerance for activity to enable patient to perform ADL's. OT Education/Plan Problem List/Assessment Pt would benefit from skilled OT to increase her independence in basic self care to allow her to return home safely Discharge Recommendations Plan/Recommendations: Continue POC Treatment Plan/Plan of Care Patient would benefit from OT for education, treatment and training to promote independence in ADL's, mobility, safety and/or upper extremity function for ADL' s. Plan of Care: ADL Retraining, Caregiver Training, Functional Mobility, Orthotic Fitting/Training, UE Funct Exercise/Act, UE Neuromus Re-Ed/Coord Treatment Duration: 4 weeks Visits Per Week: 10-11 Minutes/Day (M-F): 75-90 Minutes/Day (Sat/Maddox): prn Agreement: Yes Rehab Potential: Guarded Time/GCodes Start Time: 08:22 Stop Time: 09:07 Total Time Billed (hr/min): 45 Billed Treatment Time visit, 15 minutes ADL, 30 minutes neuromotor KELLY ATKINS OT Jan 10, 2016 11:05
--- NOTE | 2016-01-10 11:18 | Physical Therapy Daily Note ---
PT Daily Note-Current Subjective Pt. reluctantly agrees to Rx. States "I cant" several times. Discussed pts goals and if perhaps she might be home by Armand. States she was home for and it went well Pain Comment: Pt. states "it hurts" but cannot say where and does not rate. Mental Status Attachments: PEG Tube Transfers Transfers (B, C, W/C) (FIM): 3 Scootin Rollin Supine to/from Sit: 3 Sit to/from Stand: 3 Bed to/from Chair: 3 lacks control, needs assist for balance and control, sit to stand mod assist for sure. Gait Training Gait (FIM): 1 Distance (FIM): 1=up to 49 ft (4ftx2) Gait Level of Assist: 3 Gait Persons Needed: 1 Gait Assistive Device: FWW w/c f/u close behind Wheelchair Training Wheelchair (FIM): 2 Wheelchair Distance: 1=up to 49 ft (25x2) Wheelchair Level of Assist: 3 Exercises Supine Ex: Bridging, Ankle pumps, Quad Set, Rolling, Heel Slides, Short Arc Quads, Scooting, Straight leg raise (assist reqd), Hip abd/add Supine Reps: 15 Seated Therapy Exercises: Ankle pumps, Sit to stand, Long arc quads, Hip flexion Seated Reps: 15 Standing: Sit to Stand, Weight shifts Standing Reps: 8 Assessment Current Status: Good Progress very slow progress, dependent for all mobility PT Short Term Goals Short Term Goals Time Frame: Two Weeks Transfers (B,C,W/C) (FIM): 5 Gait (FIM): 1 Distance (FIM): 1=up to 49 ft Gait Distance Comment: 25' Gait Level of Assist: 3 Gait Assistive Device: FWW Wheelchair (FIM): 1 Wheelchair distance (FIM): 1=up to 49 ft Wheelchair Distance: 25' x 4 Wheelchair Level of Assist: 4 PT Senior Living Goals Senior Living Goals Time Frame: 4 wks Transfers (B,C,W/C) (FIM): 5 Gait (FIM): 1 Gait distance (FIM): 1=up to 49 ft Distance: 45' Gait Level of Assist: 4 Gait Assistive Device: FWW Stairs (FIM): 1 # of Steps: 4 Stairs Level Of Assist: 4 PT Plan Treatment/Plan Treatment Plan: Continue Plan of Care Treatment Plan: Bed Mobility, Education, Functional Activity Enrrique, Functional Strength, Group Therapy, Gait, Safety, Therapeutic Exercise, Transfers Treatment Duration: 4 wks Visits Per Week: 10-11 Minutes/Day (M-F): 60-90 Minutes/Day (Sat/M[place]): PRN Safety Risks/Education Patient Education: Transfer Techniques, Correct Positioning, Safety Issues Teaching Recipient: Patient Teaching Methods: Demonstration, Discussion Response to Teaching: Verbalize Understanding, Return Demonstration, Reinforcement Needed Time/GCodes Time In: 1015 Time Out: 1115 Total Billed Treatment Time: 60 Total Billed Treatment 1,wc15m,FA15m,EX30m G Codes Necessary: KATLIN Maynard EMPLOYEE BENEFITS ATTORNEY Jan 10, 2016 11:18
--- NOTE | 2016-01-10 13:22 | Physical Therapy Daily Note ---
PT Daily Note-Current Subjective Pt. states she is discouraged b/c she feels like she cant do it. States she will try to exercise and do some standing. Mental Status Attachments: PEG Tube Transfers supine to sit with HOB up and cues to reach with RUE to rail on left to come up SBA. This required much effort for pt. Exercises Seated Therapy Exercises: Ankle pumps, Sit to stand, Long arc quads, Hip abd/ add Seated Reps: 15 Treatments sit to stands x 3 with balance challenge, pt. lists heavy to right , needs mod assist for sit to stand. bed elevated helps Assessment Current Status: Fair Progress dependent for all PT Short Term Goals Short Term Goals Time Frame: Two Weeks Transfers (B,C,W/C) (FIM): 5 Gait (FIM): 1 Distance (FIM): 1=up to 49 ft Gait Distance Comment: 25' Gait Level of Assist: 3 Gait Assistive Device: FWW Wheelchair (FIM): 1 Wheelchair distance (FIM): 1=up to 49 ft Wheelchair Distance: 25' x 4 Wheelchair Level of Assist: 4 PT Phlebotomy Services Technician Goals Custodial Goals Time Frame: 4 wks Transfers (B,C,W/C) (FIM): 5 Gait (FIM): 1 Gait distance (FIM): 1=up to 49 ft Distance: 45' Gait Level of Assist: 4 Gait Assistive Device: FWW Stairs (FIM): 1 # of Steps: 4 Stairs Level Of Assist: 4 PT Plan Treatment/Plan Treatment Plan: Continue Plan of Care Treatment Plan: Bed Mobility, Education, Functional Activity Enrrique, Functional Strength, Group Therapy, Gait, Safety, Therapeutic Exercise, Transfers Treatment Duration: 4 wks Visits Per Week: 10-11 Minutes/Day (M-F): 60-90 Minutes/Day (Sat/Maddox): PRN Safety Risks/Education Patient Education: Transfer Techniques, Correct Positioning Teaching Recipient: Patient Teaching Methods: Demonstration, Discussion Response to Teaching: Verbalize Understanding, Return Demonstration, Reinforcement Needed Time/GCodes Time In: 1305 Time Out: 1320 Total Billed Treatment Time: 15 Total Billed Treatment 1,FA15m G Codes Necessary: KATLIN Maynard HEALTHCARE ANALYST Jan 10, 2016 13:22
[2016-01-10] MEDS: ENOXAPARIN 40 MG/0.4 ML (LOVENOX) SYR SC SCH (17:30)
--- NOTE | 2016-01-10 17:31 | Consultation ---
History of Present Illness History of Present Illness Patient Consulted On(rasheed/time) 01/10/16 17:31 Date of Admission 01/04/16 History of Present Illness This is a 50-year-old lady who is well known to me who has metastatic breast cancer with resected metastasis to brain. She is status post resection of a posterior fossa brain metastasis late September 2015 with complications including pneumonia and respiratory failure requiring tracheostomy placement vocal cord paralysis and prolonged hospital stay that required transfer to [facility]. She she was transferred back to [facility] where she was noted to have bilateral pneumonia which is been treated. Whole brain radiation while completed as of 01/04/16. She is currently receiving Faslodex hormonal therapy for her breast cancer. Allergies and Home Medications Allergies Coded Allergies: Sulfa (Sulfonamide Antibiotics) (Verified Allergy, Intermediate, HIVES, ) Home Medications 5 MG TAB #60 5 MG JT Q4H PRN PRN PAIN Prescribed by: BERTA TINOCO on 01/04/16 0948 Acetaminophen 325 Mg/10.15 Ml Soln #60 500 MG JT Q4H PRN PRN MILD PAIN Prescribed by: UZMA VILLALOBOS on 12/21/15 0806 Acetylcysteine 200 Mg/1 Ml Vial #60 0 ML INH RTQ6HR Prescribed by: UZMA VILLALOBOS on 12/21/15 0806 Alprazolam 0.25 Mg Tablet #60 0.25 MG GT BID PRN PRN ANXIETY Prescribed by: BERTA TINOCO on 01/04/16 0948 Citalopram Hydrobromide 20 Mg Tablet #30 20 MG JT DAILY Prescribed by: UZMA VILLALOBOS on 12/21/15 0806 Dexamethasone 4 Mg Tablet #60 2 MG JT BID Prescribed by: UZMA VILLALOBOS on 12/21/15 0806 Diphenoxylate HCl/Atropine 1 Each Tablet #60 1 EA JT BID Prescribed by: UZMA VILLALOBOS on 12/21/15 0806 Enoxaparin Sodium 40 Mg/0.4 Ml Syringe #30 40 MG SC DAILY@16 Prescribed by: UZMA VILLALOBOS on 12/21/15 0806 Famotidine 20 Mg Tablet #60 20 MG JT BID Prescribed by: UZMA VILLALOBOS on 12/21/15 0806 Guaifenesin 100 Mg/5 Ml Liquid #60 200 MG JT QID Prescribed by: UZMA VILLALOBOS on 12/21/15805 Ipratropium/Albuterol Sulfate 3 Ml Ampul.neb #1 3 ML INH RTQ6HR PRN PRN SHORTNESS OF BREATH Prescribed by: UZMA VILLALOBOS on 12/21/15805 Ipratropium/Albuterol Sulfate 3 Ml Ampul.neb #1 3 ML INH RTBID Prescribed by: UZMA VILLALOBOS on 12/21/15805 L. Acidophilus/Bulgaricus 1 Each Tablet #100 1 TAB.CHEW JT QID Prescribed by: UZMA VILLALOBOS on 12/21/15805 Magnesium Oxide 400 Mg Tablet #60 400 MG JT BIDPC Prescribed by: UZMA VILLALOBOS on 12/21/15805 Metoclopramide HCl 10 Mg/10 Ml Solution #100 10 MG JT ACHS Prescribed by: UZMA VILLALOBOS on 12/21/15805 Past Kaakqrr-Iaqxsi-Llvfyr Hx Patient Social History Alcohol Use: Denies Use Recreational Drug Use: No Smoking Status: Never a Smoker 2nd Hand Smoke Exposure: No Recent Foreign Travel: No Contact w/Someone Who Travel: No Recent Infectious Disease Expo: No Recent Hopitalizations: Yes Physical Abuse Screen: No Sexual Abuse: No Immunizations Up To Date Tetanus Booster (TDap): Unknown Date of Pneumonia Vaccine: Dec 08, 1999 Seasonal Allergies Seasonal Allergies: Yes Surgeries HX Surgeries: Yes (brain tumor, mastectomy) Respiratory Hx Respiratory Disorders: Yes (trach) Cardiovascular Hx Cardiac Disorders: No Neurological Hx Neurological Disorders: Yes Neurological Disorders: Brain Tumor Reproductive System Hx Reproductive Disorders: No Sexually Transmitted Disease: No HIV/AIDS: No Female Reproductive Disorders: Denies Genitourinary Hx Genitourinary Disorders: Yes Gastrointestinal Hx Gastrointestinal Disorders: Yes (tube feeding ) Musculoskeletal Hx Musculoskeletal Disorders: Yes Endocrine Hx Endocrine Disorders: No HEENT HX ENT Disorders: Yes (cataract as a child) HEENT Disorders: Cataract Loss of Vision: Denies Hearing Impairment: Denies Cancer Hx Cancer: Yes Cancer: Breast Psychosocial Hx Psychiatric Problems: Yes Behavioral Health Disorders: Depression Integumentary HX Skin/Integumentary Disorder: No Blood Transfusions Hx Blood Disorders: No Adverse Reaction to a Blood Tr: No Family Medical History Significant Family History: Hypertension Family Medial History: Hypertension 19 FATHER Myocardial infarction 19 FATHER Review of Systems-General Constitutional: weakness EENTM: see HPI Respiratory: phlegm Gastrointestinal: nausea Psychiatric/Neurological: Numbness Tingling (Tingling in fingertips) Physical Exam-General Problems Physical Exam Vital Signs Vital Sign - Last 12Hours 01/04/16 01/04/16 01/04/16 01/04/16 11:12 15:58 18:21 23:21 Temp 99.0 Pulse 88 Resp 14 B/P 99/62 Pulse Ox 97 O2 Delivery Trach Collar O2 Flow Rate 30.00 FiO2 30 Capillary Refill : General Appearance: other (Chronically ill, tracheostomy in place;) HEENT: PERRL/EOMI Neck: non-tender Respiratory: crackles Cardiovascular: regular rate, rhythm no edema Gastrointestinal: other (JPEG tube in place;) Back: normal inspection no CVA tenderness no vertebral tenderness Extremities: normal inspection no pedal edema no calf tenderness Neurologic/Psychiatric: motor weakness Assessment/Plan Assessment/Plan Admission Diagnosis/Plan 1. History of brain metastasis, status post resection at [facility] October 2015--Whole brain radiation completed on 01/04/16; a. Decadron has been tapered off. 2. Right breast cancer-infiltrating mammary cancer T2 N3b M0, Stage IIIC poorly differentiated high-grade ER 40 percent , TN negative Ki-67, 20 percent HER-2/linda 3+ positive, luminal B subtype; adjuvant chemotherapy, radiation and 1 year of trastuzumab completed on 09/14/15. a. Faslodex 500mg day 1 has been given on 12/22/15; b. Faslodex 500 mg day 15 given on 01/05/16 and next dose is due 01/19/16; 3. Vocal cord paralysis/dysphagia--patient has JPEG for tube feeding. a. Barium swallow done 01/04/16 positive for aspiration; 4. Debility--patient is receiving PT and OT to optimize functional status Clinical Quality Measures DVT/VTE Risk/Contraindication: Risk Factor Score Per Nursin RFS Level Per Nursing on Admit: 4+=Very High ONESIMO HUFFMAN MD Jan 10, 2016 17:31
[2016-01-10 19:00] VITALS: BP 92/60
[2016-01-10 19:27] VITALS: BP 92/60
--- NOTE | 2016-01-10 20:17 | PM & R (SOAP) Progress Note ---
Subjective Subjective/Events-last exam Patient was seen in her room this evening Patient SBA for trransfers but has limited endurnace Watching MNF with her spouse. Objective Exam Last Set of Vital Signs Vital Signs Date Time Temp Pulse Resp B/P Pulse Ox O2 Delivery O2 Flow Rate FiO2 01/10/16 20:00 96 Room Air 01/10/16 19:27 97.3 89 16 92/60 01/05/16 02:35 8.00 30 Capillary Refill : I&O Intake and Output 01/10/16 00:00 Intake Total 2114 ml Output Total 1200 ml Balance 914 ml Intake Oral 0 ml Tube Feeding 1264 ml Other 850 ml Output Urine Total 1200 ml # Voids 5 # Bowel Movements 2 General: Alert, Oriented X3, Cooperative, No Acute Distress HEENT: Atraumatic, PERRLA, EOMI, Mucous Memb Moist/[place] Neck: Other (Trach functioning) Lungs: Clear to Auscultation Heart: Regular Rate Abdomen: Normal Bowel Sounds, Soft, No Tenderness, Other (feeding tube in place ) Extremities: No Edema Neuro: Other (generalized weakness) Assessment/Plan Assessment S/P crani and removal Met lesion from breast ca Dysphagia NPO on tube feeds S/P trach ontrac collar at night and with PMV during day S/P Radiation Therapy course while on Swing bed Plan Continue PT/OT/ST Appreciate their notes and DR Melvin note Team Conference 01-12-16, UZMA VILLALOBOS MD Jan 10, 2016 20:17
[2016-01-10] MEDS: APAP 325 MG/10.15 ML LIQ (TYLENOL) UDC JT PRN (21:40)
[2016-01-11] MEDS: RT-ALBUTEROL/IPRATROPIUM 3 ML (DUONEB) VIAL INH SCH ×4 (01:31→19:21)
[2016-01-11] MEDS: aCETylcysteine 20% (MUCOMYST) 30ML SOLN VIAL INH SCH ×4 (01:31→19:22)
[2016-01-11 06:15] VITALS: BP 95/58
[2016-01-11] MEDS: NYSTATIN ORAL SUSP 5 ML UDC PO SCH ×3 (06:42→17:53)
[2016-01-11] MEDS: METOCLOPRAMIDE 10MG/10ML ORAL SOL(REGLAN) UDC JT SCH ×4 (06:42→20:46)
[2016-01-11] MEDS: MAGNESIUM OXIDE (MAG-OX)400 MG TAB JT SCH ×2 (08:54→17:53)
[2016-01-11] MEDS: FAMOTIDINE 20 MG (PEPCID) TABLET JT SCH ×2 (08:54→20:46)
[2016-01-11] MEDS: guaiFENesin SYRUP 100 MG/5 ML 10 ML (ROBITUSSIN SF) JT SCH ×4 (08:54→20:46)
[2016-01-11] MEDS: LACTOBACILLUS Acidoph/Bulgar (LACTINEX/FLORANEX) TAB JT SCH ×4 (08:54→20:46)
[2016-01-11] MEDS: DIPHENOXYLATE/ATROPINE 2.5MG/0.025MG (LOMOTIL) TAB JT SCH ×2 (08:54→20:46)
--- NOTE | 2016-01-11 09:33 | Progress Note (SOAP) ---
Subjective Subjective/Events-last exam pt reports that she is feeling better, she reports that she is still fatigued. per staff, she is partially participating in therapy, not as robust as she would be expected to participate, she will have days where she does well, and other days when her participation is not very good. Review of Systems General: Fatigue Pulmonary: No Dyspnea, Cough Cardiovascular: No: Chest Pain Gastrointestinal: No: Abdominal Pain Neurological: : WeaknessNo: Confusion Objective Exam Vital Signs Date Time Temp Pulse Resp B/P Pulse Ox O2 Delivery O2 Flow Rate FiO2 01/11/16 06:15 99.0 91 18 95/58 92 Room Air 01/11/16 01:32 92 Room Air 01/10/16 20:45 Room Air 01/10/16 20:00 96 Room Air 01/10/16 19:00 97.3 89 12 92/60 95 Room Air 01/10/16 16:00 90 Room Air I & O 01/11/16 07:00 Intake Total 2017 ml Balance 2017 ml Capillary Refill : General Appearance: Thin HEENT: PERRL/EOMI Respiratory: Chest Non Tender Lungs Clear (upper airway noise.) Cardiovascular: Bradycardia Gastrointestinal: normal bowel sounds non tender soft no organomegaly no pulsatile mass Extremity: No Pedal Edema Neurologic/Psychiatric: Alert Oriented x3 Skin: Warm/Dry Lymphatic: No Adenopathy Assessment/Plan Assessment/Plan Assess & Plan/Chief Complaint Pseudomonal pneumonia Aspiration pneumonia Metastatic breast cancer Post-operative generalized weakness Feeding tube status Blocked J-tube Underweight Pseudomonal pneumonia - Aspiration pneumonia - continue with head of bed elevated at 30 degrees. 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 Bardales. Weakness - continue with pt/ot/speech/rec therapy. Feeding tube -continue with current feedings. Diagnosis/Problems: Clinical Quality Measures DVT/VTE Risk/Contraindication: Risk Factor Score Per Nursin RFS Level Per Nursing on Admit: 4+=Very High BERTA TINOCO MD Jan 11, 2016 09:33
--- NOTE | 2016-01-11 10:58 | Speech Therapy Daily Note ---
Speech Daily Progress Note Subjective The patient was laying in bed upon entrance. The patient was recently treated by respiratory therapy, therefore, suctioning did not need to occur prior to the session. The patient reported fatigued, however, agreed to participate in the dysphagia session. Objective Dysphagia Exercises: The patient completed ten repetitions of each exercise presented (laryngeal elevation, base of tongue retraction, and pharyngeal contraction). The patient demonstrated each exercise with good accuracy. The patient continues to report swallowing (effortful swallow, Evelyn) exercises to be more difficult due to lack of saliva, however, is able to complete with additional time. Assessment Assessment Current Status: Fair Progress Treatment Plan Continue Plan of Care Communication Comprehension: 5 Expression: 5 Social Cognition Social Interaction: 5 Problem Solvin Memory: 5 Speech Short Term Goals Short Term Goals Short Term Goals 1. The patient will independently demonstrate laryngeal, pharyngeal, and base of tongue exercises. Time Frame-STG: Two Weeks Speech Government Affairs Fellow Goals Government Affairs Fellow Goals 1. The patient will tolerate PO trials of the least restrictive consistency without signs/symptoms of aspiration or laryngeal penetration. Time Frame: Eight Weeks Comprehension: 6 Expression: 5 Social Interaction: 5 Problem Solvin Memory: 5 Speech-Plan Treatment Plan Speech Therapy Treatment Plan: Continue Plan of Care Treatment Duration: 30 # of days/week 4 to 5 Visits Per Week: 4 to 5 Minutes/Day (M-F): 30 Rehab Potential: Guarded Safety Risks/Education Teaching Recipient: Patient Teaching Methods: Demonstration, Handout, Discussion Response to Teaching: Return Demonstration, Reinforcement Needed Education Topics Provided: Dysphagia Exercises Time Speech Therapy Time In: 09:45 Speech Therapy Time Out: 10:15 Total Billed Time: 30 Billed Treatment Time 1, GILBERT JAMES Jan 11, 2016 10:58
--- NOTE | 2016-01-11 11:05 | Physical Therapy Daily Note ---
PT Daily Note-Current Subjective Pt. begins Rx by stating that she and her Onc Physician had a discussion and they feel she had a rough day yesterday functionally b/c she just had "a hormone shot". Pt. later stated she felt she performed a little better today Mental Status Attachments: PEG Tube pt. with flat affect 70% of time, voice low Transfers Transfers (B, C, W/C) (FIM): 3 Scootin Rollin Supine to/from Sit: 5 (with HOB up) Sit to/from Stand: 3 Bed to/from Chair: 4 raised pts sitting level this date with pillow on top of cushion helping a little Gait Training Gait (FIM): 1 Distance (FIM): 1=up to 49 ft (4ftx2) Gait Level of Assist: 3 Gait Persons Needed: 1 Gait Assistive Device: FWW side step to chair and back etc Wheelchair Training Wheelchair (FIM): 3 Wheelchair Distance: 3=150 ft Wheelchair Level of Assist: 3 (needs assist to lock brakes and clear doors for turning into room etc) Exercises Supine Ex: Bridging, Ankle pumps, Quad Set, Heel Slides, Short Arc Quads, Scooting, Straight leg raise, Hip abd/add Supine Reps: 12 Seated Therapy Exercises: Sit to stand Seated Reps: 5 Treatments sit to stands at parallel bars x 4 trials 45s -1m each with sway/wt shift Assessment Current Status: Good Progress small gains, but pt. says she cant many times then needs encouraged to try and at times this date completed task with SBA PT Short Term Goals Short Term Goals Time Frame: Two Weeks Transfers (B,C,W/C) (FIM): 5 Gait (FIM): 1 Distance (FIM): 1=up to 49 ft Gait Distance Comment: 25' Gait Level of Assist: 3 Gait Assistive Device: FWW Wheelchair (FIM): 1 Wheelchair distance (FIM): 1=up to 49 ft Wheelchair Distance: 25' x 4 Wheelchair Level of Assist: 4 PT Longterm Goals Screener Operator Goals Time Frame: 4 wks Transfers (B,C,W/C) (FIM): 5 Gait (FIM): 1 Gait distance (FIM): 1=up to 49 ft Distance: 45' Gait Level of Assist: 4 Gait Assistive Device: FWW Stairs (FIM): 1 # of Steps: 4 Stairs Level Of Assist: 4 PT Plan Treatment/Plan Treatment Plan: Continue Plan of Care Treatment Plan: Bed Mobility, Education, Functional Activity Enrrique, Functional Strength, Group Therapy, Gait, Safety, Therapeutic Exercise, Transfers Treatment Duration: 4 wks Visits Per Week: 10-11 Minutes/Day (M-F): 60-90 Minutes/Day (Sat/Maddox): PRN Safety Risks/Education Patient Education: Gait Training, Transfer Techniques, Correct Positioning, W/ C Management, Safety Issues Teaching Recipient: Patient Teaching Methods: Demonstration, Discussion Response to Teaching: Verbalize Understanding, Return Demonstration, Reinforcement Needed Time/GCodes Time In: 1015 Time Out: 1100 Total Billed Treatment Time: 45 Total Billed Treatment 1,EX20,FA25 G Codes Necessary: KATLIN Maynard ADOBE CQ DEVELOPER Jan 11, 2016 11:04
--- NOTE | 2016-01-11 11:13 | Occupational Ther Daily Note ---
OT Current Status-Daily Note Subjective Pt seen in room, up in w/c, agreeable to OT. No pain mentioned Appearance Alert, cooperative, fatigued Mental Status/Objective Functional [place] Measure 0=Not Assessed/NA 4=Minimal Assistance 1=Total Assistance 5=Supervision or Setup 2=Maximal Assistance 6=Modified [place] 3=Moderate Assistance 7=Complete [place] Other Treatment Pt transported to gym per w/c and did 8 minutes bilat UE exercise on arm bike, set at 5W resistance. pt needed verbal cues to keep R hand on handled of arm bike and to pedal fast enough to trigger the counter. She took one brief rest break about midpoint. Pt returned to her room and transferred to bed min assist. Pt worked on bilat UE exercise using foam cryptozoologist and theraputty, focusing on hand strength and function as needed for ADLs. Pt continues to be stronger L hand than R. Pt left up in bed, all needs met. Education OT Patient Education: Exercise program, Purpose of tx/functional activities OT Short Term Goals Short Term Goals Time Frame: 2 weeks Lower Body Dressing(FIM): 4 Toileting(FIM): 4 Transfers (B,C,W/C) (FIM): 5 Toilet/Commode Transfer(FIM): 4 Shower Transfer(FIM): 5 1=Demonstrate adherence to instructed precautions during ADL tasks. 2=Patient will verbalize/demonstrate understanding of assistive devices/ modifications for ADL. 3=Patient will improve strength/tolerance for activity to enable patient to perform ADL's. OT Population Geneticist Goals Population Geneticist Goals Time Frame: 4 weeks Eating (FIM): 1 Grooming(FIM): 6 Bathing(FIM): 6 Upper Body Dressing(FIM): 6 Lower Body Dressing(FIM): 5 Toileting(FIM): 5 Transfers (B,C,W/C) (FIM): 5 Toilet/Commode Transfer(FIM): 5 Shower Transfer(FIM): 5 Comprehension(FIM): 6 Expression (FIM): 5 Social Interaction(FIM): 5 Problem Solving(FIM): 5 Memory(FIM): 5 Additional Goals: 2-Verbalize Understanding, 3-ImproveStrength/Enrrique 1=Demonstrate adherence to instructed precautions during ADL tasks. 2=Patient will verbalize/demonstrate understanding of assistive devices/ modifications for ADL. 3=Patient will improve strength/tolerance for activity to enable patient to perform ADL's. OT Education/Plan Problem List/Assessment Pt would benefit from skilled OT to increase her independence in basic self care to allow her to return home safely Discharge Recommendations Plan/Recommendations: Continue POC Treatment Plan/Plan of Care Patient would benefit from OT for education, treatment and training to promote independence in ADL's, mobility, safety and/or upper extremity function for ADL' s. Plan of Care: ADL Retraining, Caregiver Training, Functional Mobility, Orthotic Fitting/Training, UE Funct Exercise/Act, UE Neuromus Re-Ed/Coord Treatment Duration: 4 weeks Visits Per Week: 10-11 Minutes/Day (M-F): 75-90 Minutes/Day (Sat/M[place]ox): prn Agreement: Yes Rehab Potential: Guarded Time/GCodes Start Time: 13:30 Stop Time: 14:00 Total Time Billed (hr/min): 30 Billed Treatment Time visit, 30 minutes exercise This note is for 01/10/16 when the computer system was down KELLY ATKINS OT Jan 11, 2016 11:13
--- NOTE | 2016-01-11 11:32 | PM & R (SOAP) Progress Note ---
Subjective Subjective/Events-last exam Patient was seen in her room this AM Progressing well with therapies Endurance improved Secretions decreased,Patient min assist for transfers. Objective Exam Last Set of Vital Signs Vital Signs Date Time Temp Pulse Resp B/P Pulse Ox O2 Delivery O2 Flow Rate FiO2 01/11/16 09:38 93 Room Air 01/11/16 06:15 99.0 91 18 95/58 01/05/16 02:35 8.00 30 Capillary Refill : I&O Intake and Output 01/11/16 00:00 Intake Total 2086 ml Balance 2086 ml Intake Oral 0 ml Tube Feeding 1279 ml Other 807 ml # Voids 8 # Bowel Movements 1 General: Alert, Oriented X3, Cooperative, No Acute Distress HEENT: Atraumatic, PERRLA, EOMI, Mucous Memb Moist/[place] Neck: Other (Trach functioning) Lungs: Clear to Auscultation Heart: Regular Rate Abdomen: Normal Bowel Sounds, Soft, No Tenderness, Other (feeding tube in place ) Extremities: No Edema Neuro: Other (generalized weakness) Assessment/Plan Assessment S/P crani and removal Met lesion from breast ca Dysphagia NPO on tube feeds S/P trach ontrac collar at night and with PMV during day S/P Radiation Therapy course while on Swing bed Plan Continue PT/OT/ST Appreciate their notes and DR Melvin note Team Conference tomorrow 01-12-16, UZMA VILLALOBOS MD Jan 11, 2016 11:32
--- NOTE | 2016-01-11 11:42 | Occupational Ther Daily Note ---
OT Current Status-Daily Note Subjective Pt seen in room, up in bed, asleep but easily awakened and agreeable to OT. No pain mentioned Appearance Alert, cooperative Mental Status/Objective Functional [place] Measure 0=Not Assessed/NA 4=Minimal Assistance 1=Total Assistance 5=Supervision or Setup 2=Maximal Assistance 6=Modified [place] 3=Moderate Assistance 7=Complete [place] ADL-Treatment Pt reported she is still using bedpan for toileting and is often incontinent Grooming (FIM): 5 (Took cap off toothpaste and put toothpaste on brush, put cap backon toothpaste, brushed teeth, rinsed mouth, with minimal setup. Washed face and hands with setup) Bathing (FIM): 5 (Washed and dried all parts, doding sponge bath in bed. Needed encouragement to roll side to side to wash bottom. Setup Discussed how this might be a good option for her at home) Upper Body (FIM): 4 (Sat EOB and was able to get shirt off with modified technique (pt education). Needed min assist to get t shirt over her head because it was tight. ) Lower Body Dressing (FIM): 3 (Pt was able to partially get slacks off hips and them could take them off the rest of the way. with encouragement she could get her Depends off for her back. She could also put Depends on and rolled side to side to pull them up. She needed a little help getting slacks over bottom since they were a little tight. Also needed helps gettng socks started and on since they were smaller. Dressed in bed) Pt had a little trouble maintaining sitting EOB, tending to fall over to right side a little. She was able to catch herself but occasionally needed a little help to get back to upright. She was able to help pull herself up in bed but unable to do it on her own. Scooted side to side for about a foot (seated EOB) before becoming tired. Education OT Patient Education: Modified ADL techniques, Progress toward Goal/Update tx plan, Purpose of tx/functional activities Teaching Recipient: Patient Teaching Methods: Demonstration, Discussion Response to Teaching: Verbalize Understanding, Return Demonstration, Reinforcement Needed OT Short Term Goals Short Term Goals Time Frame: 2 weeks Lower Body Dressing(FIM): 4 Toileting(FIM): 4 Transfers (B,C,W/C) (FIM): 5 Toilet/Commode Transfer(FIM): 4 Shower Transfer(FIM): 5 1=Demonstrate adherence to instructed precautions during ADL tasks. 2=Patient will verbalize/demonstrate understanding of assistive devices/ modifications for ADL. 3=Patient will improve strength/tolerance for activity to enable patient to perform ADL's. OT Embroiderer Hand Goals Embroiderer Hand Goals Time Frame: 4 weeks Eating (FIM): 1 Grooming(FIM): 6 Bathing(FIM): 6 Upper Body Dressing(FIM): 6 Lower Body Dressing(FIM): 5 Toileting(FIM): 5 Transfers (B,C,W/C) (FIM): 5 Toilet/Commode Transfer(FIM): 5 Shower Transfer(FIM): 5 Comprehension(FIM): 6 Expression (FIM): 5 Social Interaction(FIM): 5 Problem Solving(FIM): 5 Memory(FIM): 5 Additional Goals: 2-Verbalize Understanding, 3-ImproveStrength/Enrrique 1=Demonstrate adherence to instructed precautions during ADL tasks. 2=Patient will verbalize/demonstrate understanding of assistive devices/ modifications for ADL. 3=Patient will improve strength/tolerance for activity to enable patient to perform ADL's. OT Education/Plan Problem List/Assessment Pt would benefit from skilled OT to increase her independence in basic self care to allow her to return home safely Discharge Recommendations Plan/Recommendations: Continue POC Treatment Plan/Plan of Care Patient would benefit from OT for education, treatment and training to promote independence in ADL's, mobility, safety and/or upper extremity function for ADL' s. Plan of Care: ADL Retraining, Caregiver Training, Functional Mobility, Orthotic Fitting/Training, UE Funct Exercise/Act, UE Neuromus Re-Ed/Coord Treatment Duration: 4 weeks Visits Per Week: 10-11 Minutes/Day (M-F): 75-90 Minutes/Day (Sat/M[place]ox): prn Agreement: Yes Rehab Potential: Guarded Time/GCodes Start Time: 08:20 Stop Time: 09:05 Total Time Billed (hr/min): 45 Billed Treatment Time visit, ADL 45 minutes KELLY ATKINS OT Jan 11, 2016 11:41
--- NOTE | 2016-01-11 13:57 | Occupational Ther Daily Note ---
OT Current Status-Daily Note Subjective Pt seen in room, up in bed, agreeable to OT. No pain mentioned Mental Status/Objective Functional [place] Measure 0=Not Assessed/NA 4=Minimal Assistance 1=Total Assistance 5=Supervision or Setup 2=Maximal Assistance 6=Modified [place] 3=Moderate Assistance 7=Complete [place] Other Treatment Pt needed min assist coming from supine to sit EOB, with help lifting R shoulder up off bed. Pt stood with min assist to transfer to w/c, FWW. Pt transported to gym per w/c. Pt did tabletop activity with dominos and 1/2# weight on L wrist, then R wrist. Required reaching, manipulating, lifting arms. She also did graded clothespins with weights on arms and was able to do yellow and red ones with R hand and green ones with L (increasing resistance), placing them on bars and then removing them, with lifting arms, pinching and placing movements used. Pt returned to room and needed to toilet. Stood min assist with FWW while second person managed clothing and hygiene. No results. Pt able to sit safely on BSC, with arm supports. Pt transferred back to bed min assist and was able to scoot bottom over in bed to position herself. Pt is making slow, steady progress but needs lots of encouragement. Education OT Patient Education: Modified ADL techniques, Progress toward Goal/Update tx plan, Purpose of tx/functional activities, Transfer techniques Teaching Recipient: Patient Teaching Methods: Demonstration, Discussion Response to Teaching: Return Demonstration, Reinforcement Needed OT Short Term Goals Short Term Goals Time Frame: 2 weeks Lower Body Dressing(FIM): 4 Toileting(FIM): 4 Transfers (B,C,W/C) (FIM): 5 Toilet/Commode Transfer(FIM): 4 Shower Transfer(FIM): 5 1=Demonstrate adherence to instructed precautions during ADL tasks. 2=Patient will verbalize/demonstrate understanding of assistive devices/ modifications for ADL. 3=Patient will improve strength/tolerance for activity to enable patient to perform ADL's. OT Retirement Goals Retirement Goals Time Frame: 4 weeks Eating (FIM): 1 Grooming(FIM): 6 Bathing(FIM): 6 Upper Body Dressing(FIM): 6 Lower Body Dressing(FIM): 5 Toileting(FIM): 5 Transfers (B,C,W/C) (FIM): 5 Toilet/Commode Transfer(FIM): 5 Shower Transfer(FIM): 5 Comprehension(FIM): 6 Expression (FIM): 5 Social Interaction(FIM): 5 Problem Solving(FIM): 5 Memory(FIM): 5 Additional Goals: 2-Verbalize Understanding, 3-ImproveStrength/Enrrique 1=Demonstrate adherence to instructed precautions during ADL tasks. 2=Patient will verbalize/demonstrate understanding of assistive devices/ modifications for ADL. 3=Patient will improve strength/tolerance for activity to enable patient to perform ADL's. OT Education/Plan Problem List/Assessment Pt would benefit from skilled OT to increase her independence in basic self care to allow her to return home safely Discharge Recommendations Plan/Recommendations: Continue POC Treatment Plan/Plan of Care Patient would benefit from OT for education, treatment and training to promote independence in ADL's, mobility, safety and/or upper extremity function for ADL' s. Plan of Care: ADL Retraining, Caregiver Training, Functional Mobility, Orthotic Fitting/Training, UE Funct Exercise/Act, UE Neuromus Re-Ed/Coord Treatment Duration: 4 weeks Visits Per Week: 10-11 Minutes/Day (M-F): 75-90 Minutes/Day (Sat/Maddox): prn Agreement: Yes Rehab Potential: Guarded Time/GCodes Start Time: 13:00 Stop Time: 13:40 Total Time Billed (hr/min): 40 Billed Treatment Time visit, 10 minutes ADL, 30 minutes exercise KELLY ATKINS OT Jan 11, 2016 13:57
--- NOTE | 2016-01-11 14:28 | Physical Therapy Daily Note ---
PT Daily Note-Current Subjective Agreeable to Rx. Transfers sup to sit x2 SBA with HOB up slightly Gait Training Gait Assistive Device: FWW 6ft x4 left and right at EOB min to mod assist to move FWW. Exercises Supine Ex: Bridging, Ankle pumps, Quad Set, Rolling, Glut sets, Lower trunk rotation, Heel Slides, Short Arc Quads, Scooting, Straight leg raise, Hip abd/ add Supine Reps: 15 Seated Therapy Exercises: Ankle pumps, Long arc quads, Hip flexion Seated Reps: 10 Standing: Marching (heel off/swaying), Sit to Stand Standing Reps: 8 Treatments sitting EOB then sit to stand with FWW, pt taking more and more balance responsibility. side steps left and right Assessment Current Status: Good Progress progress noted TRFs and stance PT Short Term Goals Short Term Goals Time Frame: Two Weeks Transfers (B,C,W/C) (FIM): 5 Gait (FIM): 1 Distance (FIM): 1=up to 49 ft Gait Distance Comment: 25' Gait Level of Assist: 3 Gait Assistive Device: FWW Wheelchair (FIM): 1 Wheelchair distance (FIM): 1=up to 49 ft Wheelchair Distance: 25' x 4 Wheelchair Level of Assist: 4 PT Nursing Home Goals Overnight Caregiver Goals Time Frame: 4 wks Transfers (B,C,W/C) (FIM): 5 Gait (FIM): 1 Gait distance (FIM): 1=up to 49 ft Distance: 45' Gait Level of Assist: 4 Gait Assistive Device: FWW Stairs (FIM): 1 # of Steps: 4 Stairs Level Of Assist: 4 PT Plan Treatment/Plan Treatment Plan: Continue Plan of Care Treatment Plan: Bed Mobility, Education, Functional Activity Enrrique, Functional Strength, Group Therapy, Gait, Safety, Therapeutic Exercise, Transfers Treatment Duration: 4 wks Visits Per Week: 10-11 Minutes/Day (M-F): 60-90 Minutes/Day (Sat/[place]): PRN Safety Risks/Education Patient Education: Gait Training, Transfer Techniques Teaching Recipient: Patient Teaching Methods: Demonstration, Discussion Response to Teaching: Verbalize Understanding, Return Demonstration, Reinforcement Needed Time/GCodes Time In: 1400 Time Out: 1430 Total Billed Treatment Time: 30 Total Billed Treatment 1,FA30m G Codes Necessary: KATLIN Maynard BOAT PATCHER PLASTIC Jan 11, 2016 14:28
[2016-01-11] MEDS: ENOXAPARIN 40 MG/0.4 ML (LOVENOX) SYR SC SCH (17:53)
[2016-01-11 18:50] VITALS: BP 96/64
[2016-01-12] MEDS: NYSTATIN ORAL SUSP 5 ML UDC PO SCH ×5 (00:16→23:41)
[2016-01-12] MEDS: aCETylcysteine 20% (MUCOMYST) 30ML SOLN VIAL INH SCH ×4 (02:22→20:00)
[2016-01-12] MEDS: RT-ALBUTEROL/IPRATROPIUM 3 ML (DUONEB) VIAL INH SCH ×4 (02:22→20:00)
[2016-01-12] MEDS: APAP 325 MG/10.15 ML LIQ (TYLENOL) UDC JT PRN ×2 (02:52→20:10)
[2016-01-12 05:47] VITALS: BP 90/58
[2016-01-12] MEDS: METOCLOPRAMIDE 10MG/10ML ORAL SOL(REGLAN) UDC JT SCH ×4 (06:01→20:11)
[2016-01-12] MEDS: DIPHENOXYLATE/ATROPINE 2.5MG/0.025MG (LOMOTIL) TAB JT SCH ×2 (09:14→20:10)
[2016-01-12] MEDS: MAGNESIUM OXIDE (MAG-OX)400 MG TAB JT SCH ×2 (09:14→18:08)
[2016-01-12] MEDS: LACTOBACILLUS Acidoph/Bulgar (LACTINEX/FLORANEX) TAB JT SCH ×4 (09:14→20:10)
[2016-01-12] MEDS: guaiFENesin SYRUP 100 MG/5 ML 10 ML (ROBITUSSIN SF) JT SCH ×4 (09:15→20:10)
[2016-01-12] MEDS: FAMOTIDINE 20 MG (PEPCID) TABLET JT SCH ×2 (09:15→20:10)
--- NOTE | 2016-01-12 09:31 | Physical Therapy Daily Note ---
PT Daily Note-Current Subjective As this SURGICAL SCRUB TECHNICIAN entered room pt. states, "Im no good, I didnt sleep" "I cant" . 3 discussions during rx with this SURGICAL SCRUB TECHNICIAN explaining that Pts. days in the hospital on the Rehab will be limited and we should give full effort. Pt. needed many sessions of encouragement. Pt. initially agreed to try to extend her sitting up time but after Rx asked to lay down again. with More discussion pt. agreed to sit Mental Status Attachments: PEG Tube Transfers Transfers (B, C, W/C) (FIM): 3 Scootin Rollin Supine to/from Sit: 5 (with HOB up) Sit to/from Stand: 3 Bed to/from Chair: 3 Gait Training 2-3 steps with mod plus assist w/c to bed and back Wheelchair Training Wheelchair (FIM): 2 Wheelchair Distance: 2=829-06 ft (50ftx2) Wheelchair Level of Assist: 3 Exercises Seated Therapy Exercises: Ankle pumps, Sit to stand, Long arc quads Seated Reps: 12 st shift left and right in stance, right side listing in sitting and stance Treatments in trying to assist pt. with sit to stand the w/c height was raised with cushions and folded blankets and this was not affective as pt extended her trunk and slid out forward in w/c then Assessment Current Status: Fair Progress dependent for all mobility. This SURGICAL SCRUB TECHNICIAN had lengthy discussion with SW. Pt. not making functional gains, likely would make most sense to assist family in Hospice counseling and or at least not require 3 hr therapy PT Short Term Goals Short Term Goals Time Frame: Two Weeks Transfers (B,C,W/C) (FIM): 5 Gait (FIM): 1 Distance (FIM): 1=up to 49 ft Gait Distance Comment: 25' Gait Level of Assist: 3 Gait Assistive Device: FWW Wheelchair (FIM): 1 Wheelchair distance (FIM): 1=up to 49 ft Wheelchair Distance: 25' x 4 Wheelchair Level of Assist: 4 PT Residential Goals Wire Wrapping Machine Operator Goals Time Frame: 4 wks Transfers (B,C,W/C) (FIM): 5 Gait (FIM): 1 Gait distance (FIM): 1=up to 49 ft Distance: 45' Gait Level of Assist: 4 Gait Assistive Device: FWW Stairs (FIM): 1 # of Steps: 4 Stairs Level Of Assist: 4 PT Plan Treatment/Plan Treatment Plan: Continue Plan of Care Treatment Plan: Bed Mobility, Education, Functional Activity Enrrique, Functional Strength, Group Therapy, Gait, Safety, Therapeutic Exercise, Transfers Treatment Duration: 4 wks Visits Per Week: 10-11 Minutes/Day (M-F): 60-90 Minutes/Day (Sat/[place]): PRN Safety Risks/Education Patient Education: Transfer Techniques, Correct Positioning, Safety Issues Teaching Recipient: Patient Teaching Methods: Demonstration, Discussion Response to Teaching: Verbalize Understanding, Return Demonstration, Reinforcement Needed Time/GCodes Time In: 815 Time Out: 915 Total Billed Treatment Time: 60 Total Billed Treatment 1,FA60m G Codes Necessary: KATLIN Maynard SURGICAL SCRUB TECHNICIAN Jan 12, 2016 09:31
--- NOTE | 2016-01-12 10:25 | PM & R (SOAP) Progress Note ---
Subjective Subjective/Events-last exam Patient was seen in her room this AM Patient Min assist for transfers.Appreciate therapy notes.Needs encouragement at times. Objective Exam Last Set of Vital Signs Vital Signs Date Time Temp Pulse Resp B/P Pulse Ox O2 Delivery O2 Flow Rate FiO2 01/12/16 08:10 Room Air 01/12/16 06:51 92 01/12/16 05:47 98.0 91 22 90/58 Capillary Refill : I&O Intake and Output 01/12/16 00:00 Intake Total 2503 ml Balance 2503 ml Intake Oral 0 ml Tube Feeding 1553 ml Other 950 ml # Voids 5 # Bowel Movements 2 General: Alert, Oriented X3, Cooperative, No Acute Distress HEENT: Atraumatic, PERRLA, EOMI, Mucous Memb Moist/[place] Neck: Other (Trach functioning) Lungs: Clear to Auscultation Heart: Regular Rate Abdomen: Normal Bowel Sounds, Soft, No Tenderness, Other (feeding tube in place ) Extremities: No Edema Neuro: Other (generalized weakness) Results Lab Laboratory Tests 01/11/16 10:58: Glucometer 223H Assessment/Plan Assessment S/P crani and removal Met lesion from breast ca Dysphagia NPO on tube feeds S/P trach ontrac collar at night and with PMV during day S/P Radiation Therapy course while on Swing bed Plan Continue PT/OT/ST Appreciate their notes and DR Melvin note Team Conference later today- See rerport for full functional update and POC and WILFREDO MARIA ERIC E MD Jan 12, 2016 10:25
[2016-01-12 11:37] LABS: BASOPHILS % (AUTO) 0 % (0-10); EOSINOPHILS % (AUTO) 0 % (0-10); LYMPHOCYTES # (AUTO) 0.9 X 10^3 (1.0-4.0); LYMPHOCYTES % (AUTO) 13 % (12-44); MEAN CORPUSCULAR HEMOGLOBIN 31 PG (25-34); MEAN CORPUSCULAR HGB CONC 32 G/DL (32-36); MEAN CORPUSCULAR VOLUME 96 FL (80-99); MONOCYTES # (AUTO) 0.4 X 10^3 (0.0-1.0); MONOCYTES % (AUTO) 6 % (0-12); NEUTROPHILS # (AUTO) 5.1 X 10^3 (1.8-7.8); NEUTROPHILS % (AUTO) 80 % (42-75); PLATELET COUNT 161 10^3/uL (130-400); RED BLOOD COUNT 2.58 10^6/uL (4.35-5.85); RED CELL DISTRIBUTION WIDTH 15.9 % (10.0-14.5); WHITE BLOOD COUNT 6.4 10^3/uL (4.3-11.0)
--- NOTE | 2016-01-12 11:50 | Speech Therapy Daily Note ---
Speech Daily Progress Note Subjective The patient was seated upright in recliner upon entrance. The patient greeted the clinician appropriately and agreed to participate in dysphagia therapy on this date. To note, the patient continues to report fatigue throughout the treatment. Objective Dysphagia Exercises: The patient completed ten repetitions of each exercise presented (laryngeal elevation, base of tongue retraction, and pharyngeal contraction). The patient demonstrated each exercise with good accuracy. The patient demonstrated increased secretions on this date, however, did not wish to be suctioned. Assessment Assessment Current Status: Fair Progress Treatment Plan Continue Plan of Care Communication Comprehension: 5 Expression: 5 Social Cognition Social Interaction: 5 Problem Solvin Memory: 5 Speech Short Term Goals Short Term Goals Short Term Goals 1. The patient will independently demonstrate laryngeal, pharyngeal, and base of tongue exercises. Time Frame-STG: Two Weeks Speech Cellular Equipment Repairer Goals [facility] Goals 1. The patient will tolerate PO trials of the least restrictive consistency without signs/symptoms of aspiration or laryngeal penetration. Time Frame: Eight Weeks Comprehension: 6 Expression: 5 Social Interaction: 5 Problem Solvin Memory: 5 Speech-Plan Treatment Plan Speech Therapy Treatment Plan: Continue Plan of Care Treatment Duration: 30 # of days/week 4 to 5 Visits Per Week: 4 to 5 Minutes/Day (M-F): 30 Rehab Potential: Guarded Safety Risks/Education Teaching Recipient: Patient Teaching Methods: Discussion Response to Teaching: Verbalize Understanding Education Topics Provided: Progression Towards Goals Time Speech Therapy Time In: 09:45 Speech Therapy Time Out: 10:15 Total Billed Time: 30 Billed Treatment Time ASAEL Curran ELIZABETH Jan 12, 2016 11:50
--- NOTE | 2016-01-12 11:53 | Occupational Ther Daily Note ---
OT Current Status-Daily Note Subjective Pt seen in room, up in w/c. She said she had already put clean clothes on and washed up a bit. Appearance Alert, cooperative, needs lots of encouragement Mental Status/Objective Functional [place] Measure 0=Not Assessed/NA 4=Minimal Assistance 1=Total Assistance 5=Supervision or Setup 2=Maximal Assistance 6=Modified [place] 3=Moderate Assistance 7=Complete [place] Attachments: PEG Tube, Saline Lock Other Treatment Pt helped propel w/c to gym, needing encouragement to use R UE. Pt did 10 minutes bilat UE exercise on arm bike (increased 2 minutes) set on 5W resistance , with 1 brief break. She also did bilat UE ex/AROM (without additional weight or resistance) with pool noodle (good size for her to hold on to), working on shoulders, elbows and wrists. Pt reported pain in her wrist with full supination R. She was unable to fully flex R wrist against gravity so needed assistance during AROM. Pt helped propel herself back to her room.Tube feeding plugged in. Transferred to bed -needed mod assist to come to standing but them pivoted with min assist, FWW. Got herself into bed and scooted bottom over. Pt up in bed, 4 rails up, all needs met. Education OT Patient Education: Exercise program, Progress toward Goal/Update tx plan, Transfer techniques Teaching Recipient: Patient Teaching Methods: Demonstration, Discussion Response to Teaching: Verbalize Understanding, Return Demonstration, Reinforcement Needed OT Short Term Goals Short Term Goals Time Frame: 2 weeks Lower Body Dressing(FIM): 4 Toileting(FIM): 4 Transfers (B,C,W/C) (FIM): 5 Toilet/Commode Transfer(FIM): 4 Shower Transfer(FIM): 5 1=Demonstrate adherence to instructed precautions during ADL tasks. 2=Patient will verbalize/demonstrate understanding of assistive devices/ modifications for ADL. 3=Patient will improve strength/tolerance for activity to enable patient to perform ADL's. OT [place] Swage Operator Goals [facility] Goals Time Frame: 4 weeks Eating (FIM): 1 Grooming(FIM): 6 Bathing(FIM): 6 Upper Body Dressing(FIM): 6 Lower Body Dressing(FIM): 5 Toileting(FIM): 5 Transfers (B,C,W/C) (FIM): 5 Toilet/Commode Transfer(FIM): 5 Shower Transfer(FIM): 5 Comprehension(FIM): 6 Expression (FIM): 5 Social Interaction(FIM): 5 Problem Solving(FIM): 5 Memory(FIM): 5 Additional Goals: 2-Verbalize Understanding, 3-ImproveStrength/Enrrique 1=Demonstrate adherence to instructed precautions during ADL tasks. 2=Patient will verbalize/demonstrate understanding of assistive devices/ modifications for ADL. 3=Patient will improve strength/tolerance for activity to enable patient to perform ADL's. OT Education/Plan Problem List/Assessment Pt would benefit from skilled OT to increase her independence in basic self care to allow her to return home safely Discharge Recommendations Plan/Recommendations: Continue POC Treatment Plan/Plan of Care Patient would benefit from OT for education, treatment and training to promote independence in ADL's, mobility, safety and/or upper extremity function for ADL' s. Plan of Care: ADL Retraining, Caregiver Training, Functional Mobility, Orthotic Fitting/Training, UE Funct Exercise/Act, UE Neuromus Re-Ed/Coord Treatment Duration: 4 weeks Visits Per Week: 10-11 Minutes/Day (M-F): 75-90 Minutes/Day (Sat/M[place]): prn Agreement: Yes Rehab Potential: Guarded Time/GCodes Start Time: 10:15 Stop Time: 11:00 Total Time Billed (hr/min): 45 Billed Treatment Time visit, 45 minutes exercise KELLY ATKINS OT Jan 12, 2016 11:53
[2016-01-12 11:54] LABS: ALANINE AMINOTRANSFERASE 25 U/L (0-55); ALBUMIN 3.3 G/DL (3.2-4.5); ANION GAP 8 MMOL/L (5-14); ASPARTATE AMINO TRANSFERASE 16 U/L (5-34); BILIRUBIN,TOTAL 0.7 MG/DL (0.1-1.0); BLOOD UREA NITROGEN 10 MG/DL (7-18); BUN/CREATININE RATIO 21; CALCIUM 8.9 MG/DL (8.5-10.1); CARBON DIOXIDE 27 MMOL/L (21-32); CHLORIDE 100 MMOL/L (98-107); CREATININE SERUM 0.48 MG/DL (0.60-1.30); GFR ESTIMATED > 60; GLUCOSE 122 MG/DL (70-105); POTASSIUM 3.8 MMOL/L (3.6-5.0); SODIUM 135 MMOL/L (135-145); TOTAL PROTEIN 6.1 G/DL (6.4-8.2)
--- NOTE | 2016-01-12 12:02 | Progress Note (SOAP) ---
Subjective Subjective/Events-last exam Reports feeling very tired. Nurses also report patient is having increased secretions and is requiring more frequent suctioning; Objective Exam Vital Signs Date Time Temp Pulse Resp B/P Pulse Ox O2 Delivery O2 Flow Rate FiO2 01/12/16 08:10 Room Air 01/12/16 06:51 92 Room Air 01/12/16 05:47 98.0 91 22 90/58 94 Room Air 01/12/16 02:22 93 Room Air 01/11/16 20:45 Room Air 01/11/16 19:22 90 Room Air 01/11/16 18:50 98.1 89 14 96/64 92 Room Air 01/11/16 14:38 92 Room Air I & O 01/12/16 07:00 Intake Total 2595 ml Balance 2595 ml Capillary Refill : General Appearance: Chronically ill HEENT: PERRL/EOMI Other (tracheostomy tube with Passy-Clarkson cap in place) Neck: Non Tender Supple Respiratory: Crackles (coarse crackles bilaterally) Cardiovascular: Regular Rate, Rhythm No Edema No Gallop No JVD Gastrointestinal: normal bowel sounds non tender soft (JPEG in place) Extremity: Non Tender No Pedal Edema Neurologic/Psychiatric: Motor Weakness Results Lab Laboratory Tests 01/12/16 11:29 Laboratory Tests 01/12/16 11:29: Alanine Aminotransferase (ALT/SGPT) 25, Albumin 3.3, Alkaline Phosphatase 92, Anion Gap 8, Aspartate Amino Transf (AST/SGOT) 16, BUN/Creatinine Ratio 21, Basophils # (Auto) 0.0, Basophils (%) (Auto) 0, Blood Urea Nitrogen 10, Calcium Level 8.9, Carbon Dioxide Level 27, Chloride Level 100, Creatinine 0.48L, Eosinophils # (Auto) 0.0, Eosinophils (%) (Auto) 0, Estimat Glomerular Filtration Rate > 60, Glucose Level 122H, Hematocrit 25L, Hemoglobin 8.0L, Lymphocytes # (Auto) 0.9L, Lymphocytes (%) (Auto) 13, Mean Corpuscular Hemoglobin 31, Mean Corpuscular Hemoglobin Concent 32, Mean Corpuscular Volume 96, Mean Platelet Volume 8.0, Monocytes # (Auto) 0.4, Monocytes (%) (Auto) 6, Neutrophils # (Auto) 5.1, Neutrophils (%) (Auto) 80H, Platelet Count 161, Potassium Level 3.8, Red Blood Count 2.58L, Red Cell Distribution Width 15.9H, Sodium Level 135, Total Bilirubin 0.7, Total Protein 6.1L, White Blood Count 6.4 Assessment/Plan Assessment/Plan Assess & Plan/Chief Complaint 1. Symptomatic anemia-check iron studies, vitamin B-12, folate and transfuse 2 units packed RBCs. 2. History of brain metastasis, status post resection at [facility] October 2015--Whole brain radiation completed on 01/04/16; a. Decadron has been tapered off. 3. Right breast cancer-infiltrating mammary cancer T2 N3b M0, Stage IIIC poorly differentiated high-grade ER 40 percent , SD negative Ki-67, 20 percent HER-2/linda 3+ positive, luminal B subtype; adjuvant chemotherapy, radiation and 1 year of trastuzumab completed on 09/14/15. a. Faslodex 500mg day 1 has been given on 12/22/15; b. Faslodex 500 mg day 15 given on 01/05/16 and next dose is due 01/19/16; 4. Vocal cord paralysis/dysphagia--patient has JPEG for tube feeding. a. Barium swallow done 01/04/16 positive for aspiration; 5. Debility--patient is receiving PT and OT to optimize functional status 6. Check chest x-ray and repeat posttransfusion CBC in am 7. Dr. Sam will be covering me until Sunday01/16/16; Diagnosis/Problems: Clinical Quality Measures DVT/VTE Risk/Contraindication: Risk Factor Score Per Nursin RFS Level Per Nursing on Admit: 4+=Very High ONESIMO HUFFMAN MD Jan 12, 2016 12:02
--- NOTE | 2016-01-12 14:11 | Pulmonary Progress Note ---
Subjective Subjective/Events-last exam pt is having a lot of secretions. Exam Exam Vital Signs Date Time Temp Pulse Resp B/P Pulse Ox O2 Delivery O2 Flow Rate FiO2 01/12/16 08:10 Room Air 01/12/16 06:51 92 Room Air 01/12/16 05:47 98.0 91 22 90/58 94 Room Air 01/12/16 02:22 93 Room Air 01/11/16 20:45 Room Air 01/11/16 19:22 90 Room Air 01/11/16 18:50 98.1 89 14 96/64 92 Room Air 01/11/16 14:38 92 Room Air I & O 01/12/16 07:00 Intake Total 2595 ml Balance 2595 ml General Appearance: No Apparent Distress WD/WN HEENT: Normal ENT Inspection Pharynx Normal Respiratory: No Accessory Muscle Use No Respiratory Distress Crackles Rhonci Cardiovascular: Regular Rate, Rhythm No Edema Gastrointestinal: non tender soft no organomegaly other (JPEG tube in place;) Neurologic/Psychiatric: Alert Oriented x3 Skin: Normal Color Warm/Dry Lymphatic: No Adenopathy Results Lab Laboratory Tests 01/12/16 11:29 Assessment/Plan Assessment/Plan Metastatic breast CA to posterior brain s/p crani and resection OSH S/p mechanical ventilation for respiratory failure and vocal cord paralysis s/p tracheostomy -Cap trach during day -SVNs -Suction PRN s/p Pseudomonus pneumonia -s/p cefepime - Pt is having Copious thick secretions per RT. Pt also failed swallow evaluation. I would recommend leaving tracheostomy for airway protection. Clinical Quality Measures DVT/VTE Risk/Contraindication: Risk Factor Score Per Nursin RFS Level Per Nursing on Admit: 4+=Very High CAROLYN CRAWFORD DO Jan 12, 2016 14:11
--- NOTE | 2016-01-12 14:42 | Therapy Group Daily Note ---
Therapy Daily Group Note Patient Education Topic Other List Below (heart owners manual,edic RE: BP readings, cardiac prevention, your heart and your therapy) Exercises LE Seated Exercise, UE Exercise Other/Notes Pt. attended group PT OT session. Pt. came via w/c. Pt. was moderately social and seemed to enjoy social interaction shaking her head when others spoke and seeming very empathetic. BPs were taken and explanation was given for its meaning. Pts. all shared the event in their life that was extraordinary, this pt sharing the of her children and her passing out. Start Time: 13:00 Stop Time: 14:15 Total Billed Treatment Time: 75 Total Billed Treatment 1,GRP KATLIN CLAYTON UPPER SHAPER Jan 12, 2016 14:42
[2016-01-12] MEDS ORDERED: NS IV 500 ML 500 ML IV SCH (16:30)
[2016-01-12] MEDS ORDERED: diphenhydrAMINE 50 MG/ML INJ (BENADRYL) IV NR (17:00)
--- NOTE | 2016-01-12 17:35 | Diagnostic Imaging Report ---
INDICATION: Increasing congestion. Time of exam: 5:01 PM Correlation is made with prior study from 01/03/2016. Tracheostomy tube has tip above the fabian. Right-sided line has a tip overlying the SVC right atrial junction. Right breast implant overlies the right lower lung vela. There has been development of minimal irregular parenchymal density in the left upper lobe since 9 days ago consistent with some developing infiltrate or atelectasis. Scarring or atelectasis right upper lobe is seen. There is no effusion. No pneumothorax is identified. IMPRESSION: Minimal developing infiltrate or atelectasis left upper lobe since the exam from 01/03/2016. Dictated by: Dictated on workstation # [id number]
[2016-01-12] MEDS: ENOXAPARIN 40 MG/0.4 ML (LOVENOX) SYR SC SCH (18:09)
[2016-01-12 18:55] VITALS: BP 110/72
[2016-01-12 21:28] VITALS: BP 105/72
[2016-01-12 21:50] VITALS: BP 91/60
[2016-01-13 00:15] VITALS: BP 93/64
[2016-01-13 00:30] VITALS: BP 94/65
[2016-01-13] MEDS: RT-ALBUTEROL/IPRATROPIUM 3 ML (DUONEB) VIAL INH SCH ×4 (02:11→20:47)
[2016-01-13 03:00] VITALS: BP 99/66
[2016-01-13 03:09] VITALS: BP 99/66
[2016-01-13] MEDS: NYSTATIN ORAL SUSP 5 ML UDC PO SCH ×3 (06:00→17:14)
[2016-01-13] MEDS: METOCLOPRAMIDE 10MG/10ML ORAL SOL(REGLAN) UDC JT SCH ×4 (06:05→20:51)
[2016-01-13 06:13] LABS: BASOPHILS % (AUTO) 0 % (0-10); EOSINOPHILS % (AUTO) 1 % (0-10); LYMPHOCYTES % (AUTO) 20 % (12-44); MEAN CORPUSCULAR HEMOGLOBIN 30 PG (25-34); MEAN CORPUSCULAR HGB CONC 33 G/DL (32-36); MEAN CORPUSCULAR VOLUME 91 FL (80-99); MEAN PLATELET VOLUME 8.3 FL (7.4-10.4); MONOCYTES # (AUTO) 0.4 X 10^3 (0.0-1.0); MONOCYTES % (AUTO) 9 % (0-12); NEUTROPHILS # (AUTO) 3.5 X 10^3 (1.8-7.8); NEUTROPHILS % (AUTO) 71 % (42-75); PLATELET COUNT 154 10^3/uL (130-400); RED BLOOD COUNT 3.31 10^6/uL (4.35-5.85); RED CELL DISTRIBUTION WIDTH 18.5 % (10.0-14.5); WHITE BLOOD COUNT 4.9 10^3/uL (4.3-11.0)
--- NOTE | 2016-01-13 07:16 | Pulmonary Progress Note ---
Subjective Subjective/Events-last exam No complications noted. Exam Exam Vital Signs Date Time Temp Pulse Resp B/P Pulse Ox O2 Delivery O2 Flow Rate FiO2 01/13/16 03:09 98.0 89 16 99/66 95 Room Air 01/13/16 03:00 98.0 89 16 99/66 93 Room Air 01/13/16 02:12 93 Room Air 01/13/16 00:30 97.4 85 18 94/65 91 Room Air 01/13/16 00:15 97.9 76 16 93/64 95 Room Air 01/12/16 21:50 99.2 91 18 91/60 92 Room Air 01/12/16 21:28 99.5 93 16 105/72 91 Room Air 01/12/16 20:00 Room Air 01/12/16 20:00 91 Room Air 01/12/16 18:55 97.0 92 20 110/72 95 Room Air 01/12/16 14:21 94 Room Air 01/12/16 08:10 Room Air I & O 01/13/16 07:00 Intake Total 1708 ml Balance 1708 ml General Appearance: Chronically ill HEENT: PERRL/EOMI Neck: Non Tender Supple Respiratory: Crackles (coarse crackles bilaterally) Cardiovascular: Regular Rate, Rhythm No Edema No Gallop No JVD Gastrointestinal: normal bowel sounds non tender soft (JPEG in place) Extremity: Non Tender No Pedal Edema Neurologic/Psychiatric: Motor Weakness Results Lab Laboratory Tests 01/12/16 11:29 01/13/16 05:50 Assessment/Plan Assessment/Plan Metastatic breast CA to posterior brain s/p crani and resection OSH S/p mechanical ventilation for respiratory failure and vocal cord paralysis s/p tracheostomy -Cap trach during day -SVNs -Suction PRN s/p Pseudomonus pneumonia -s/p cefepime - Pt is having Copious thick secretions per RT. Pt also failed swallow evaluation. I would recommend leaving tracheostomy for airway protection. Clinical Quality Measures DVT/VTE Risk/Contraindication: Risk Factor Score Per Nursin RFS Level Per Nursing on Admit: 4+=Very High CAROLYN CRAWFORD DO Jan 13, 2016 07:16
[2016-01-13] MEDS: DIPHENOXYLATE/ATROPINE 2.5MG/0.025MG (LOMOTIL) TAB JT SCH ×2 (09:14→20:51)
[2016-01-13] MEDS: FAMOTIDINE 20 MG (PEPCID) TABLET JT SCH ×2 (09:14→20:51)
[2016-01-13] MEDS: MAGNESIUM OXIDE (MAG-OX)400 MG TAB JT SCH ×2 (09:14→17:14)
[2016-01-13] MEDS: LACTOBACILLUS Acidoph/Bulgar (LACTINEX/FLORANEX) TAB JT SCH ×4 (09:14→20:51)
[2016-01-13] MEDS: guaiFENesin SYRUP 100 MG/5 ML 10 ML (ROBITUSSIN SF) JT SCH ×4 (09:15→20:51)
--- NOTE | 2016-01-13 09:54 | Physical Therapy Daily Note ---
PT Daily Note-Current Subjective Pt reports she received 2 units of blood yesterday. As she began to sit up she said, "I'm going to be jelly today." Throughout treatment, pt requested frequent rest breaks. Mental Status Patient Orientation: Person, Place, Time, Situation Transfers Transfers (B, C, W/C) (FIM): 4 Supine to/from Sit: 5 (SBA with supine to sit with skilled cues for patient to initiate the task without assist from this therapist) Sit to/from Stand: 4 (skilled cues for scooting forward and hand placement. cues to encourage pt to initiate and do for herself) Bed to/from Chair: 4 (Dance style SPT bed to chair) Gait Training Sit to dial equipment engineer // bars with min assist and skilled cues to scoot forward, lean forward and initiate the stand. Needed min assist to break initial plane of gravity. Once up, pt ambulated forward 7 ft x 5 in // bars with min assist and followed closely by wheelchair. Wheelchair Training Wheelchair (FIM): 4 Wheelchair Distance: 3=150 ft Distance: 200 ft and 150 ft x 2 Wheelchair Level of Assist: 4 (assist to propel and to make directional changes. ) Pt primarily uses feet to propel; requires skilled cues to position self optimally for traction; pt required cues to initiate using her arms to also help propel. Primary mobility on straight surfaces, but also a few turns made. Also had pt turn into room and back her chair next to her bed....initially pt did not think she could do this, but with cues, she was able to complete. Pt up in chair post treatment ready fos speech therapy and call light in reach. Exercises Seated Therapy Exercises: Ankle pumps, Long arc quads, Hip flexion, Glut set Seated Reps: 15 ( 2 sets) Assessment Current Status: Fair Progress Pt is participatory but lacks full initiation of task and often relies on therapist to complete the task or to direct her to initiate it. She continues to require assist to complete all transfers and functional mobiliyt. PT Short Term Goals Short Term Goals Time Frame: Two Weeks Transfers (B,C,W/C) (FIM): 5 Gait (FIM): 1 Distance (FIM): 1=up to 49 ft Gait Distance Comment: 25' Gait Level of Assist: 3 Gait Assistive Device: FWW Wheelchair (FIM): 1 (achieved on 01/13/16) Wheelchair distance (FIM): 1=up to 49 ft Wheelchair Distance: 25' x 4 Wheelchair Level of Assist: 4 PT Stem Maker Goals Stem Maker Goals Time Frame: 4 wks Transfers (B,C,W/C) (FIM): 5 Gait (FIM): 1 Gait distance (FIM): 1=up to 49 ft Distance: 45' Gait Level of Assist: 4 Gait Assistive Device: FWW Stairs (FIM): 1 # of Steps: 4 Stairs Level Of Assist: 4 PT Plan Problem List Problem List: Activity Tolerance, Functional Strength, Safety, Gait, Transfer, Bed Mobility Treatment/Plan Treatment Plan: Continue Plan of Care Treatment Plan: Bed Mobility, Education, Functional Activity Enrrique, Functional Strength, Group Therapy, Gait, Safety, Therapeutic Exercise, Transfers Treatment Duration: 4 wks Visits Per Week: 10-11 Minutes/Day (M-F): 60-90 Minutes/Day (Sat/[place]): PRN Discharge Recommendations Plan Continue to encourage pt to progress and push herself for optimal function. Time/GCodes Time In: 835 Time Out: 935 Total Billed Treatment Time: 60 Total Billed Treatment visit WC 20 EX 15 FA 25 HUMBERTO AQUINO PT Jan 13, 2016 09:54
--- NOTE | 2016-01-13 10:17 | Speech Therapy Daily Note ---
Speech Daily Progress Note Subjective The patient was seated upright in wheelchair upon entrance. The patient greeted the clinician and agreed to participate in dysphagia therapy on this date. Per patient, she is frustrated as she recently learned her tracheostomy would be present "indefinitely." Objective Dysphagia Exercises: The patient completed dysphagia exercises with high accuracy and mild clinician verbal prompting and direct modeling. The patient stated the exercises intermittently cause an increase in secretions. RT was recently present and will return to suction patient and provide requested humidification (discussed with RN). The patient denied any questions or concerns at this time. Assessment Assessment Current Status: Fair Progress Treatment Plan Continue Plan of Care Communication Comprehension: 5 Expression: 5 Social Cognition Social Interaction: 5 Problem Solvin Memory: 5 Speech Short Term Goals Short Term Goals Short Term Goals 1. The patient will independently demonstrate laryngeal, pharyngeal, and base of tongue exercises. Time Frame-STG: Two Weeks Speech Sheet Fed Printer Goals Fdc Goals 1. The patient will tolerate PO trials of the least restrictive consistency without signs/symptoms of aspiration or laryngeal penetration. Time Frame: Eight Weeks Comprehension: 6 Expression: 5 Social Interaction: 5 Problem Solvin Memory: 5 Speech-Plan Treatment Plan Speech Therapy Treatment Plan: Continue Plan of Care Treatment Duration: 30 # of days/week 4 to 5 Visits Per Week: 4 to 5 Minutes/Day (M-F): 30 Rehab Potential: Guarded Safety Risks/Education Teaching Recipient: Patient Teaching Methods: Discussion Response to Teaching: Verbalize Understanding Education Topics Provided: Plan of Care Time Speech Therapy Time In: 09:45 Speech Therapy Time Out: 10:15 Total Billed Time: 30 Billed Treatment Time Bina ASAEL GILBERT VORA Jan 13, 2016 10:16
[2016-01-13] MEDS: aCETylcysteine 20% (MUCOMYST) 30ML SOLN VIAL INH SCH ×2 (10:38→20:47)
--- NOTE | 2016-01-13 10:59 | Occupational Ther Daily Note ---
OT Current Status-Daily Note Subjective Pt seen in room, up in w/c, agreeable to OT and shower in her room. No pain mentioned. Appearance Alert, cooperative, willing to participate Mental Status/Objective Functional [place] Measure 0=Not Assessed/NA 4=Minimal Assistance 1=Total Assistance 5=Supervision or Setup 2=Maximal Assistance 6=Modified [place] 3=Moderate Assistance 7=Complete [place] ADL-Treatment All ADLs took longer than usual. PEG, central line and trach covered to keep dry. Bathing (FIM): 4 (Pt sat on transfer tub bench in shower in her room, Was able to stabilaze herself holding on to grab bars and could cross her legs to wash her feet and lean forward to wash calves, Washed all other parts except bottom, although not most effeectively. had help to wash hair (much hair is falling out , especially in back). She pulled up to stand with min assist and maintained standing while bottom was washed) Upper Body (FIM): 4 (Needed just a little help to get shirt over her head and down her back) Lower Body Dressing (FIM): 1 (Pt stood holding on to grab bars while second person pulled her pants up. Help provided to get slipper socks on and pants over feet, due to fatigue. ) Transfers (B, C, W/C) (FIM): 4 (Min sit to stand and pivot to bed, FWW. legs are not dependable) Shower Transfer(FIM): 4 (Stood min assist, then grabbed on to grab bars and pivoted to sit on transfer tub bench, with min assist) Other Treatment Pt was returned to bed, up in bed, all needs met. Education OT Patient Education: Modified ADL techniques, Progress toward Goal/Update tx plan, Purpose of tx/functional activities, Transfer techniques, Use of adapted equipment Teaching Recipient: Patient Teaching Methods: Demonstration, Discussion Response to Teaching: Reinforcement Needed OT Short Term Goals Short Term Goals Time Frame: 2 weeks Lower Body Dressing(FIM): 4 Toileting(FIM): 4 Transfers (B,C,W/C) (FIM): 5 Toilet/Commode Transfer(FIM): 4 Shower Transfer(FIM): 5 1=Demonstrate adherence to instructed precautions during ADL tasks. 2=Patient will verbalize/demonstrate understanding of assistive devices/ modifications for ADL. 3=Patient will improve strength/tolerance for activity to enable patient to perform ADL's. OT Broadband Technician Goals Broadband Technician Goals Time Frame: 4 weeks Eating (FIM): 1 Grooming(FIM): 6 Bathing(FIM): 6 Upper Body Dressing(FIM): 6 Lower Body Dressing(FIM): 5 Toileting(FIM): 5 Transfers (B,C,W/C) (FIM): 5 Toilet/Commode Transfer(FIM): 5 Shower Transfer(FIM): 5 Comprehension(FIM): 6 Expression (FIM): 5 Social Interaction(FIM): 5 Problem Solving(FIM): 5 Memory(FIM): 5 Additional Goals: 2-Verbalize Understanding, 3-ImproveStrength/Enrrique 1=Demonstrate adherence to instructed precautions during ADL tasks. 2=Patient will verbalize/demonstrate understanding of assistive devices/ modifications for ADL. 3=Patient will improve strength/tolerance for activity to enable patient to perform ADL's. OT Education/Plan Problem List/Assessment Pt would benefit from skilled OT to increase her independence in basic self care to allow her to return home safely Discharge Recommendations Plan/Recommendations: Continue POC Treatment Plan/Plan of Care Patient would benefit from OT for education, treatment and training to promote independence in ADL's, mobility, safety and/or upper extremity function for ADL' s. Plan of Care: ADL Retraining, Caregiver Training, Functional Mobility, Orthotic Fitting/Training, UE Funct Exercise/Act, UE Neuromus Re-Ed/Coord Treatment Duration: 4 weeks Visits Per Week: 10-11 Minutes/Day (M-F): 75-90 Minutes/Day (Sat/Maddox): prn Agreement: Yes Rehab Potential: Guarded Time/GCodes Start Time: 10:30 Stop Time: 11:40 Total Time Billed (hr/min): 60 Billed Treatment Time visit, 60 minutes ADL (10 minutes respiratory tx) KELLY ATKINS OT Jan 13, 2016 10:59
--- NOTE | 2016-01-13 14:15 | Physical Therapy Daily Note ---
PT Daily Note-Current Subjective Pt supine in bed upon arrival. Pt agrees to afternoon PT. Pain Numeric Pain Scale: 0-No Pain Location: No Pain Reported Mental Status Patient Orientation: Person, Place, Time Attachments: Other-See Comments (Trach.) Transfers Supine to/from Sit: 4 Sit to/from Stand: 3 Weight Bearing Weight Bearing Restriction: Full Weight Bearing Location Restriction: LE Bilateral Exercises Seated Therapy Exercises: Sit to stand Seated Reps: 5 Treatments Pt transferred supine to EOB at Min A then sit to stand at Mod A. Pt practiced sit to stand 5 times with short rest break between each before returning to supine in bed to rest. Pt was left with all needs met at end of tx. Assessment Current Status: Fair Progress Pt continues to fatigue with activity. Pt requires rest breaks after transfer training. Pt continues to have jello legs upon standing. PT Short Term Goals Short Term Goals Time Frame: Two Weeks Transfers (B,C,W/C) (FIM): 5 Gait (FIM): 1 Distance (FIM): 1=up to 49 ft Gait Distance Comment: 25' Gait Level of Assist: 3 Gait Assistive Device: FWW Wheelchair (FIM): 1 (achieved on 01/13/16) Wheelchair distance (FIM): 1=up to 49 ft Wheelchair Distance: 200 ft and 150 ft x 2 Wheelchair Level of Assist: 4 PT [facility] Goals Life Enrichment Manager Goals Time Frame: 4 wks Transfers (B,C,W/C) (FIM): 5 Gait (FIM): 1 Gait distance (FIM): 1=up to 49 ft Distance: 45' Gait Level of Assist: 4 Gait Assistive Device: FWW Stairs (FIM): 1 # of Steps: 4 Stairs Level Of Assist: 4 PT Plan Problem List Problem List: Activity Tolerance, Functional Strength, Safety, Balance, Gait, Transfer, Bed Mobility Treatment/Plan Treatment Plan: Continue Plan of Care Treatment Plan: Bed Mobility, Education, Functional Activity Enrrique, Functional Strength, Group Therapy, Gait, Safety, Therapeutic Exercise, Transfers Treatment Duration: 4 wks Visits Per Week: 10-11 Minutes/Day (M-F): 60-90 Minutes/Day (Sat/Maddox): PRN Safety Risks/Education Patient Education: Transfer Techniques, Correct Positioning, Safety Issues Teaching Recipient: Patient Teaching Methods: Discussion Response to Teaching: Verbalize Understanding Time/GCodes Time In: 1245 Time Out: 1300 Total Billed Treatment Time: 15 Total Billed Treatment visit, FA (15m) LUISA DASILVA PTA Jan 13, 2016 14:15
--- NOTE | 2016-01-13 16:10 | Progress Note-Standard ---
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 Complications off vocal cord paralysis and aspiration, Pseudomonas pneumonia and completed antibiotic therapy. Currently undergoing rehabilitation with gradual improvement. Patient had increased shortness of breath and anemia with hemoglobin level of 8.0 yesterday, status post 2 units of packed red blood cell transfusion. She is feeling better today. Receiving tube feeds at 60 mL per hour continuously. He has intermittent loose stools with the C. difficile toxin negative in the recent past. No urinary symptoms. Chest x-ray showing faint infiltrate in the left upper lobe. We will repeat chest x-ray in 1-2 days. Patient is receiving nebulizer treatments and Dr. Staples is following. Currently on palliative hormonal therapy with Faslodex. Continue PT and OT. Maintain tracheostomy to prevent aspiration. ELHAM FLORES Jan 13, 2016 16:10
--- NOTE | 2016-01-13 16:44 | PM & R (SOAP) Progress Note ---
Subjective Subjective/Events-last exam Patient was seen in her room this AM Appreciate DR Nunez notes and orders Patient has had transfusion for Anemia and Trach to remain in for suctioning.Patient min assist for transfers. Review of Systems General: Fatigue Pulmonary: Other (secretions) Objective Exam Last Set of Vital Signs Vital Signs Date Time Temp Pulse Resp B/P Pulse Ox O2 Delivery O2 Flow Rate FiO2 01/13/16 15:27 92 Room Air 01/13/16 03:09 98.0 89 16 99/66 Capillary Refill : I&O Intake and Output 01/13/16 00:00 Intake Total 1295 ml Balance 1295 ml Tube Feeding 625 ml Other 670 ml # Voids 3 General: Alert, Oriented X3, Cooperative, No Acute Distress HEENT: Atraumatic, PERRLA, EOMI, Mucous Memb Moist/[place] Neck: Other (Trach functioning) Lungs: Clear to Auscultation Heart: Regular Rate Abdomen: Normal Bowel Sounds, Soft, No Tenderness, Other (feeding tube in place ) Extremities: No Edema Neuro: Other (generalized weakness) Results Lab Laboratory Tests 01/11/16 10:58: Glucometer 223H 01/12/16 11:29: Alanine Aminotransferase (ALT/SGPT) 25, Albumin 3.3, Alkaline Phosphatase 92, Anion Gap 8, Aspartate Amino Transf (AST/SGOT) 16, BUN/Creatinine Ratio 21, Basophils # (Auto) 0.0, Basophils (%) (Auto) 0, Blood Urea Nitrogen 10, Calcium Level 8.9, Carbon Dioxide Level 27, Chloride Level 100, Creatinine 0.48L, Eosinophils # (Auto) 0.0, Eosinophils (%) (Auto) 0, Estimat Glomerular Filtration Rate > 60, Glucose Level 122H, Hematocrit 25L, Hemoglobin 8.0L, Lymphocytes # (Auto) 0.9L, Lymphocytes (%) (Auto) 13, Mean Corpuscular Hemoglobin 31, Mean Corpuscular Hemoglobin Concent 32, Mean Corpuscular Volume 96, Mean Platelet Volume 8.0, Monocytes # (Auto) 0.4, Monocytes (%) (Auto) 6, Neutrophils # (Auto) 5.1, Neutrophils (%) (Auto) 80H, Platelet Count 161, Potassium Level 3.8, Red Blood Count 2.58L, Red Cell Distribution Width 15.9H, Sodium Level 135, Total Bilirubin 0.7, Total Protein 6.1L, White Blood Count 6.4 01/12/16 16:33: 01/13/16 05:50: Basophils # (Auto) 0.0, Basophils (%) (Auto) 0, Eosinophils # (Auto) 0.0, Eosinophils (%) (Auto) 1, Hematocrit 30L, Hemoglobin 9.8#L, Lymphocytes # (Auto ) 1.0, Lymphocytes (%) (Auto) 20, Mean Corpuscular Hemoglobin 30, Mean Corpuscular Hemoglobin Concent 33, Mean Corpuscular Volume 91, Mean Platelet Volume 8.3, Monocytes # (Auto) 0.4, Monocytes (%) (Auto) 9, Neutrophils # (Auto ) 3.5, Neutrophils (%) (Auto) 71, Platelet Count 154, Red Blood Count 3.31L, Red Cell Distribution Width 18.5H, White Blood Count 4.9 Assessment/Plan Assessment S/P crani and removal Met lesion from breast ca Dysphagia NPO on tube feeds S/P trach ontrac collar at night and with PMV during day S/P Radiation Therapy course while on Swing bed anemia s/p transfusion 2 unis PRBCS Plan Continue PT/OT/ST Appreciate their notes and Specialists notes. Team Conference held yesterday See rerport for full functional update and POC and WILFREDO MARIA ERIC E MD Jan 13, 2016 16:44
--- NOTE | 2016-01-13 16:45 | Occupational Ther Daily Note ---
OT Current Status-Daily Note Subjective Pt seen in room, up in bed, agreeable to OT. Going to do UE ex but she needed to toilet. Mental Status/Objective Functional [place] Measure 0=Not Assessed/NA 4=Minimal Assistance 1=Total Assistance 5=Supervision or Setup 2=Maximal Assistance 6=Modified [place] 3=Moderate Assistance 7=Complete [place] ADL-Treatment Pt was incontinent of stool in Depends Toileting (FIM): 1 (Two people needed to manage toileting. One for clothing management and one for hygiene. She was able to stand for several minutes with min/CGA and FWW for help to clean loose stool and change clothing. ) Toilet/Commode Transfer (FIM): 4 (Min assist sit to stand from bed and transfer to BSC, then back to bed. FWW) Pt was returned to bed, all needs met, 4 rails up. Discussed with nursing consideration to put her on a toileting schedule every 3 hours or so Other Treatment Pt was provided with yellow foam lens generating machine tender to do 20 squeezes and pinches with each hand, after toileting. Education OT Patient Education: Modified ADL techniques, Purpose of tx/functional activities, Transfer techniques Teaching Recipient: Patient Teaching Methods: Demonstration, Discussion Response to Teaching: Verbalize Understanding, Return Demonstration, Reinforcement Needed OT Short Term Goals Short Term Goals Time Frame: 2 weeks Lower Body Dressing(FIM): 4 Toileting(FIM): 4 Transfers (B,C,W/C) (FIM): 5 Toilet/Commode Transfer(FIM): 4 Shower Transfer(FIM): 5 1=Demonstrate adherence to instructed precautions during ADL tasks. 2=Patient will verbalize/demonstrate understanding of assistive devices/ modifications for ADL. 3=Patient will improve strength/tolerance for activity to enable patient to perform ADL's. OT Group Home Goals Business Operations Consultant Goals Time Frame: 4 weeks Eating (FIM): 1 Grooming(FIM): 6 Bathing(FIM): 6 Upper Body Dressing(FIM): 6 Lower Body Dressing(FIM): 5 Toileting(FIM): 5 Transfers (B,C,W/C) (FIM): 5 Toilet/Commode Transfer(FIM): 5 Shower Transfer(FIM): 5 Comprehension(FIM): 6 Expression (FIM): 5 Social Interaction(FIM): 5 Problem Solving(FIM): 5 Memory(FIM): 5 Additional Goals: 2-Verbalize Understanding, 3-ImproveStrength/Enrrique 1=Demonstrate adherence to instructed precautions during ADL tasks. 2=Patient will verbalize/demonstrate understanding of assistive devices/ modifications for ADL. 3=Patient will improve strength/tolerance for activity to enable patient to perform ADL's. OT Education/Plan Problem List/Assessment Pt would benefit from skilled OT to increase her independence in basic self care to allow her to return home safely Discharge Recommendations Plan/Recommendations: Continue POC Treatment Plan/Plan of Care Patient would benefit from OT for education, treatment and training to promote independence in ADL's, mobility, safety and/or upper extremity function for ADL' s. Plan of Care: ADL Retraining, Caregiver Training, Functional Mobility, Orthotic Fitting/Training, UE Funct Exercise/Act, UE Neuromus Re-Ed/Coord Treatment Duration: 4 weeks Visits Per Week: 10-11 Minutes/Day (M-F): 75-90 Minutes/Day (Sat/Maddox): prn Agreement: Yes Rehab Potential: Guarded Time/GCodes Start Time: 13:45 Stop Time: 14:00 Total Time Billed (hr/min): 15 Billed Treatment Time visit, 15 minutes ADL KELLY ATKINS OT Jan 13, 2016 16:45
[2016-01-13] MEDS: ENOXAPARIN 40 MG/0.4 ML (LOVENOX) SYR SC SCH (17:13)
[2016-01-13 18:00] VITALS: BP 104/67
[2016-01-13] MEDS: APAP 325 MG/10.15 ML LIQ (TYLENOL) UDC JT PRN (22:07)
[2016-01-14] MEDS: RT-ALBUTEROL/IPRATROPIUM 3 ML (DUONEB) VIAL INH SCH ×4 (02:46→20:58)
[2016-01-14 05:43] VITALS: BP 111/74
[2016-01-14] MEDS: METOCLOPRAMIDE 10MG/10ML ORAL SOL(REGLAN) UDC JT SCH ×4 (06:05→21:29)
[2016-01-14 06:52] LABS: FOLIC ACID 19.2 ng/mL (1.5-24.0)
[2016-01-14] MEDS: LACTOBACILLUS Acidoph/Bulgar (LACTINEX/FLORANEX) TAB JT SCH ×4 (08:27→21:29)
[2016-01-14] MEDS: DIPHENOXYLATE/ATROPINE 2.5MG/0.025MG (LOMOTIL) TAB JT SCH ×2 (08:27→21:29)
[2016-01-14] MEDS: FAMOTIDINE 20 MG (PEPCID) TABLET JT SCH ×2 (08:28→21:29)
[2016-01-14] MEDS: MAGNESIUM OXIDE (MAG-OX)400 MG TAB JT SCH ×2 (08:28→17:23)
[2016-01-14] MEDS: guaiFENesin SYRUP 100 MG/5 ML 10 ML (ROBITUSSIN SF) JT SCH ×4 (08:29→21:29)
[2016-01-14] MEDS: aCETylcysteine 20% (MUCOMYST) 30ML SOLN VIAL INH SCH ×2 (09:23→20:58)
--- NOTE | 2016-01-14 09:37 | PM & R (SOAP) Progress Note ---
Subjective Subjective/Events-last exam Patient was seen in her room this AM.Patient Min assist for transfers Anemia improved s/p transfusion PRBCS Still with significant secretions and thus Trach to remain in for now.Appreciate Therapy notes. Objective Exam Last Set of Vital Signs Vital Signs Date Time Temp Pulse Resp B/P Pulse Ox O2 Delivery O2 Flow Rate FiO2 01/14/16 05:43 98.0 89 19 111/74 91 Room Air Capillary Refill : I&O Intake and Output 01/14/16 00:00 Intake Total 2959 ml Output Total 3 ml Balance 2956 ml IV Total 250 ml Tube Feeding 1369 ml Other 1340 ml Output Urine Total 3 ml # Voids 3 # Urine Diapers 1 # Bowel Movements 2 General: Alert, Oriented X3, Cooperative, No Acute Distress HEENT: Atraumatic, PERRLA, EOMI, Mucous Memb Moist/[place] Neck: Other (Trach functioning) Lungs: Clear to Auscultation Heart: Regular Rate Abdomen: Normal Bowel Sounds, Soft, No Tenderness, Other (feeding tube in place ) Extremities: No Edema Neuro: Other (generalized weakness) Results Lab Laboratory Tests 01/11/16 10:58: Glucometer 223H 01/12/16 11:29: Alanine Aminotransferase (ALT/SGPT) 25, Albumin 3.3, Alkaline Phosphatase 92, Anion Gap 8, Aspartate Amino Transf (AST/SGOT) 16, BUN/Creatinine Ratio 21, Basophils # (Auto) 0.0, Basophils (%) (Auto) 0, Blood Urea Nitrogen 10, Calcium Level 8.9, Carbon Dioxide Level 27, Chloride Level 100, Creatinine 0.48L, Eosinophils # (Auto) 0.0, Eosinophils (%) (Auto) 0, Estimat Glomerular Filtration Rate > 60, Glucose Level 122H, Hematocrit 25L, Hemoglobin 8.0L, Lymphocytes # (Auto) 0.9L, Lymphocytes (%) (Auto) 13, Mean Corpuscular Hemoglobin 31, Mean Corpuscular Hemoglobin Concent 32, Mean Corpuscular Volume 96, Mean Platelet Volume 8.0, Monocytes # (Auto) 0.4, Monocytes (%) (Auto) 6, Neutrophils # (Auto) 5.1, Neutrophils (%) (Auto) 80H, Platelet Count 161, Potassium Level 3.8, Red Blood Count 2.58L, Red Cell Distribution Width 15.9H, Sodium Level 135, Total Bilirubin 0.7, Total Protein 6.1L, White Blood Count 6.4 01/12/16 16:33: Ferritin 431H, Folate 19.2, Iron Level 32L, Total Iron Binding Capacity 202L, Transferrin % Saturation 16, Unsaturated Iron Binding Capacity 170, Vitamin B12 Level 622 01/13/16 05:50: Basophils # (Auto) 0.0, Basophils (%) (Auto) 0, Eosinophils # (Auto) 0.0, Eosinophils (%) (Auto) 1, Hematocrit 30L, Hemoglobin 9.8#L, Lymphocytes # (Auto ) 1.0, Lymphocytes (%) (Auto) 20, Mean Corpuscular Hemoglobin 30, Mean Corpuscular Hemoglobin Concent 33, Mean Corpuscular Volume 91, Mean Platelet Volume 8.3, Monocytes # (Auto) 0.4, Monocytes (%) (Auto) 9, Neutrophils # (Auto ) 3.5, Neutrophils (%) (Auto) 71, Platelet Count 154, Red Blood Count 3.31L, Red Cell Distribution Width 18.5H, White Blood Count 4.9 Assessment/Plan Assessment S/P crani and removal Met lesion from breast ca Dysphagia NPO on tube feeds S/P trach ontrac collar at night and with PMV during day S/P Radiation Therapy course while on Swing bed anemia s/p transfusion 2 unis PRBCS Plan Continue PT/OT/ST Appreciate their notes and Specialists notes. Team Conference held 01-12-16 See report for full functional update and POC and ELOS, SW to f/u re possible family conference with [facility] to discuss Prognosis and POC Oral Thrush treated- Nystatin d/cd last evening. UZMA VILLALOBOS MD Jan 14, 2016 09:37
--- NOTE | 2016-01-14 09:51 | Occupational Ther Daily Note ---
OT Current Status-Daily Note Subjective Pt seen in room, up in bed, agreeable to OT. Needs to toilet Appearance Alert, cooperative Mental Status/Objective Functional [place] Measure 0=Not Assessed/NA 4=Minimal Assistance 1=Total Assistance 5=Supervision or Setup 2=Maximal Assistance 6=Modified [place] 3=Moderate Assistance 7=Complete [place] ADL-Treatment Toileting (FIM): 1 (Two people needed - one to hold her up and one to manage clothing and hygiene. BSC, FWW) Toilet/Commode Transfer (FIM): 4 (Min assist sit to stand and transfer on and off BSC, FWW.) Other Treatment Pt worked with foam hand seafood process worker for 20 reps, to increase hand strength as needed for ADLs. Pt left up in bed, all needs met. Education OT Patient Education: Exercise program, Modified ADL techniques, Progress toward Goal/Update tx plan, Transfer techniques Teaching Recipient: Patient Teaching Methods: Demonstration Response to Teaching: Return Demonstration OT Short Term Goals Short Term Goals Time Frame: 2 weeks Lower Body Dressing(FIM): 4 Toileting(FIM): 4 Transfers (B,C,W/C) (FIM): 5 Toilet/Commode Transfer(FIM): 4 Shower Transfer(FIM): 5 1=Demonstrate adherence to instructed precautions during ADL tasks. 2=Patient will verbalize/demonstrate understanding of assistive devices/ modifications for ADL. 3=Patient will improve strength/tolerance for activity to enable patient to perform ADL's. OT Chief Fundraising Officer Goals Chief Fundraising Officer Goals Time Frame: 4 weeks Eating (FIM): 1 Grooming(FIM): 6 Bathing(FIM): 6 Upper Body Dressing(FIM): 6 Lower Body Dressing(FIM): 5 Toileting(FIM): 5 Transfers (B,C,W/C) (FIM): 5 Toilet/Commode Transfer(FIM): 5 Shower Transfer(FIM): 5 Comprehension(FIM): 6 Expression (FIM): 5 Social Interaction(FIM): 5 Problem Solving(FIM): 5 Memory(FIM): 5 Additional Goals: 2-Verbalize Understanding, 3-ImproveStrength/Enrrique 1=Demonstrate adherence to instructed precautions during ADL tasks. 2=Patient will verbalize/demonstrate understanding of assistive devices/ modifications for ADL. 3=Patient will improve strength/tolerance for activity to enable patient to perform ADL's. OT Education/Plan Problem List/Assessment Pt would benefit from skilled OT to increase her independence in basic self care to allow her to return home safely Discharge Recommendations Plan/Recommendations: Continue POC Treatment Plan/Plan of Care Patient would benefit from OT for education, treatment and training to promote independence in ADL's, mobility, safety and/or upper extremity function for ADL' s. Plan of Care: ADL Retraining, Caregiver Training, Functional Mobility, Orthotic Fitting/Training, UE Funct Exercise/Act, UE Neuromus Re-Ed/Coord Treatment Duration: 4 weeks Visits Per Week: 10-11 Minutes/Day (M-F): 75-90 Minutes/Day (Sat/Maddox): prn Agreement: Yes Rehab Potential: Guarded Time/GCodes Start Time: 09:00 Stop Time: 09:30 Total Time Billed (hr/min): 30 Billed Treatment Time visit, 20 min ADL, 10 minutes exercise KELLY ATKINS OT Jan 14, 2016 09:50
--- NOTE | 2016-01-14 11:04 | Speech Therapy Daily Note ---
Speech Daily Progress Note Subjective The patient was laying in bed upon entrance. Respiratory therapy had recently provided tracheostomy care and suctioning. The patient agreed to participate in dysphagia therapy on this date. Objective Dysphagia Exercises: The patient completed dysphagia exercises with fair to good accuracy and mild clinician verbal prompting and direct modeling. The patient continues to demonstrate high fatigue throughout the session. Assessment Assessment Current Status: Fair Progress Treatment Plan Continue Plan of Care Communication Comprehension: 5 Expression: 5 Social Cognition Social Interaction: 5 Problem Solvin Memory: 5 Speech Short Term Goals Short Term Goals Short Term Goals 1. The patient will independently demonstrate laryngeal, pharyngeal, and base of tongue exercises. Time Frame-STG: Two Weeks Speech Manager Critical Care Goals Fdc Goals 1. The patient will tolerate PO trials of the least restrictive consistency without signs/symptoms of aspiration or laryngeal penetration. Time Frame: Eight Weeks Comprehension: 6 Expression: 5 Social Interaction: 5 Problem Solvin Memory: 5 Speech-Plan Treatment Plan Speech Therapy Treatment Plan: Continue Plan of Care Treatment Duration: 30 # of days/week 4 to 5 Visits Per Week: 4 to 5 Minutes/Day (M-F): 30 Rehab Potential: Guarded Safety Risks/Education Teaching Recipient: Patient Teaching Methods: Discussion Response to Teaching: Verbalize Understanding Education Topics Provided: Progression towards Goals Time Speech Therapy Time In: 09:30 Speech Therapy Time Out: 10:00 Total Billed Time: 30 Billed Treatment Time 1ASAEL ELIZABETH ST Jan 14, 2016 11:04
--- NOTE | 2016-01-14 12:12 | Physical Therapy Daily Note ---
PT Daily Note-Current Subjective "Oh, I don't know if I can do this today. My legs are just like jelly." "the meds make me so sleepy." As this therapist is retrieving the patient's shoes for therapy the patient questions, "oh, will I need shoes for this?" Mental Status Patient Orientation: Person, Place, Time, Situation However, question her problem solving or thinking through the entire situation as she did not seem to coordinate physical therapy care with needing shoes. She always wears her shoes for therapy; thus questioning if she needs them is interesting. Also needs frequent reminders for task sequencing or initiation of task; She will verbally express that she desires to get stronger and do more therapy but when the time actually comes to participate she needs cues, encouragement and reminders to the importance of therapy. She will follow all cues and does agree that therapy is important but then during therapy care, will express that she is too tired or that the task is too hard. Transfers Transfers (B, C, W/C) (FIM): 3 Scootin Rollin Supine to/from Sit: 5 Sit to/from Stand: 4 Sit to stand x 10 reps with min assist and cues to sequence and initiate. SPT x 3 reps with FWW with min assist and cues for foot and walker placement. Gait Training Walking 7' x 5 in // bars with min assist followed closely by wheelchair. Wheelchair Training Wheelchair (FIM): 2 Wheelchair Distance: 8=344-24 ft Wheelchair propulsion using legs and arms x 75 ft x 2 with occasional min assist. Cues for pt to use arms and legs as well as cues for positioning to optimally reach floor with feet Exercises Seated Therapy Exercises: Ankle pumps, Long arc quads, Hip flexion Seated Reps: 15 Assessment Current Status: Fair Progress Transfers remain at a min assist grossly; needs a bit more assist for scooting in bed. Does well with SPT with FWW but does need min assist. PT Short Term Goals Short Term Goals Time Frame: Two Weeks Transfers (B,C,W/C) (FIM): 5 Gait (FIM): 1 Distance (FIM): 1=up to 49 ft Gait Distance Comment: 25' Gait Level of Assist: 3 Gait Assistive Device: FWW Wheelchair (FIM): 1 (achieved on 01/13/16) Wheelchair distance (FIM): 1=up to 49 ft Wheelchair Distance: 200 ft and 150 ft x 2 Wheelchair Level of Assist: 4 PT Residential Goals Residential Goals Time Frame: 4 wks Transfers (B,C,W/C) (FIM): 5 Gait (FIM): 1 Gait distance (FIM): 1=up to 49 ft Distance: 45' Gait Level of Assist: 4 Gait Assistive Device: FWW Stairs (FIM): 1 # of Steps: 4 Stairs Level Of Assist: 4 PT Plan Problem List Problem List: Activity Tolerance, Functional Strength, Gait, Transfer, Bed Mobility Treatment/Plan Treatment Plan: Continue Plan of Care Treatment Plan: Bed Mobility, Education, Functional Activity Enrrique, Functional Strength, Group Therapy, Gait, Safety, Therapeutic Exercise, Transfers Treatment Duration: 4 wks Visits Per Week: 10-11 Minutes/Day (M-F): 60-90 Minutes/Day (Sat/[place]): PRN Safety Risks/Education Educated on the importance of therapy and progession of activity to make functional gains, voices understanding. Time/GCodes Time In: 1100 Time Out: 1200 Total Billed Treatment Time: 60 Total Billed Treatment visit FA 15 WC 15 GT 15 EX 15 HUMBERTO AQUINO PT Jan 14, 2016 12:12
--- NOTE | 2016-01-14 14:32 | Therapy Group Daily Note ---
Therapy Daily Group Note Patient Education Topic Other List Below (vascular circulation) Exercises LE Seated Exercise, UE Exercise Other/Notes Pt. attended group PT OT session. Pt. came to and from via w/c. Pt. participated in group well, sharing name and visiting well with others etc. Exercise was lead by patients as they read and demonstrated exercises from a card with explanation and image. Pt. managed this well. Memory activity was done utilizing images. To room after group via w/c. In bed with carpenter at hand Start Time: 13:00 Stop Time: 14:00 Total Billed Treatment Time: 60 Total Billed Treatment 1,GRP KATLIN CLAYTON IDENTIFIER HORSE Jan 14, 2016 14:32
--- NOTE | 2016-01-14 15:22 | Occupational Ther Daily Note ---
OT Current Status-Daily Note Subjective Pt seen in bed, agreeable to OT. Mental Status/Objective Functional [place] Measure 0=Not Assessed/NA 4=Minimal Assistance 1=Total Assistance 5=Supervision or Setup 2=Maximal Assistance 6=Modified [place] 3=Moderate Assistance 7=Complete [place] Other Treatment Pt did 10 reps bilat UE exercise with 1/2# weight on each arm, working on shoulders, elbows, forearms and wrist. Pt please with her progress and that she can do exercises with additional resistance. Also facilitated day pass for pt for Sunday. Pt left up in bed, 4 rails up, all needs met. Education OT Patient Education: Exercise program Teaching Recipient: Patient Teaching Methods: Demonstration OT Short Term Goals Short Term Goals Time Frame: 2 weeks Lower Body Dressing(FIM): 4 Toileting(FIM): 4 Transfers (B,C,W/C) (FIM): 5 Toilet/Commode Transfer(FIM): 4 Shower Transfer(FIM): 5 1=Demonstrate adherence to instructed precautions during ADL tasks. 2=Patient will verbalize/demonstrate understanding of assistive devices/ modifications for ADL. 3=Patient will improve strength/tolerance for activity to enable patient to perform ADL's. OT Construction Sales Representative Goals Construction Sales Representative Goals Time Frame: 4 weeks Eating (FIM): 1 Grooming(FIM): 6 Bathing(FIM): 6 Upper Body Dressing(FIM): 6 Lower Body Dressing(FIM): 5 Toileting(FIM): 5 Transfers (B,C,W/C) (FIM): 5 Toilet/Commode Transfer(FIM): 5 Shower Transfer(FIM): 5 Comprehension(FIM): 6 Expression (FIM): 5 Social Interaction(FIM): 5 Problem Solving(FIM): 5 Memory(FIM): 5 Additional Goals: 2-Verbalize Understanding, 3-ImproveStrength/Enrrique 1=Demonstrate adherence to instructed precautions during ADL tasks. 2=Patient will verbalize/demonstrate understanding of assistive devices/ modifications for ADL. 3=Patient will improve strength/tolerance for activity to enable patient to perform ADL's. OT Education/Plan Problem List/Assessment Pt would benefit from skilled OT to increase her independence in basic self care to allow her to return home safely Discharge Recommendations Plan/Recommendations: Continue POC Treatment Plan/Plan of Care Patient would benefit from OT for education, treatment and training to promote independence in ADL's, mobility, safety and/or upper extremity function for ADL' s. Plan of Care: ADL Retraining, Caregiver Training, Functional Mobility, Orthotic Fitting/Training, UE Funct Exercise/Act, UE Neuromus Re-Ed/Coord Treatment Duration: 4 weeks Visits Per Week: 10-11 Minutes/Day (M-F): 75-90 Minutes/Day (Sat/[place]): prn Agreement: Yes Rehab Potential: Guarded Time/GCodes Start Time: 15:00 Stop Time: 15:15 Total Time Billed (hr/min): 15 Billed Treatment Time visit, 15 minutes exercise KELLY ATKINS OT Jan 14, 2016 15:22
[2016-01-14] MEDS: ENOXAPARIN 40 MG/0.4 ML (LOVENOX) SYR SC SCH (16:03)
[2016-01-14 18:00] VITALS: BP 114/71
[2016-01-14] MEDS: APAP 325 MG/10.15 ML LIQ (TYLENOL) UDC JT PRN (21:44)
[2016-01-15] MEDS: RT-ALBUTEROL/IPRATROPIUM 3 ML (DUONEB) VIAL INH SCH ×4 (04:12→20:28)
[2016-01-15] MEDS: METOCLOPRAMIDE 10MG/10ML ORAL SOL(REGLAN) UDC JT SCH ×2 (06:17→10:00)
[2016-01-15 06:43] VITALS: BP 96/60
[2016-01-15] MEDS: aCETylcysteine 20% (MUCOMYST) 30ML SOLN VIAL INH SCH ×2 (07:54→20:28)
[2016-01-15] MEDS: guaiFENesin SYRUP 100 MG/5 ML 10 ML (ROBITUSSIN SF) JT SCH ×4 (09:41→21:09)
[2016-01-15] MEDS: LACTOBACILLUS Acidoph/Bulgar (LACTINEX/FLORANEX) TAB JT SCH ×4 (09:41→21:09)
[2016-01-15] MEDS: MAGNESIUM OXIDE (MAG-OX)400 MG TAB JT SCH ×2 (09:41→18:41)
[2016-01-15] MEDS: FAMOTIDINE 20 MG (PEPCID) TABLET JT SCH ×2 (09:41→21:09)
[2016-01-15] MEDS: DIPHENOXYLATE/ATROPINE 2.5MG/0.025MG (LOMOTIL) TAB JT SCH ×2 (09:41→21:09)
--- NOTE | 2016-01-15 11:13 | Physical Therapy Daily Note ---
PT Daily Note-Current Subjective Agreeable. Going on a home pass tomorrow. Exercises Supine Ex: Ankle pumps, Quad Set, Glut sets, Heel Slides, Short Arc Quads, Straight leg raise, Hip abd/add Supine Reps: 15 Assessment Performed chair exercises only today in a semi supine position. PT Short Term Goals Short Term Goals Time Frame: Two Weeks Transfers (B,C,W/C) (FIM): 5 Gait (FIM): 1 Distance (FIM): 1=up to 49 ft Gait Distance Comment: 25' Gait Level of Assist: 3 Gait Assistive Device: FWW Wheelchair (FIM): 1 (achieved on 01/13/16) Wheelchair distance (FIM): 1=up to 49 ft Wheelchair Distance: 200 ft and 150 ft x 2 Wheelchair Level of Assist: 4 PT Patient Advocate Goals Snf Goals Time Frame: 4 wks Transfers (B,C,W/C) (FIM): 5 Gait (FIM): 1 Gait distance (FIM): 1=up to 49 ft Distance: 45' Gait Level of Assist: 4 Gait Assistive Device: FWW Stairs (FIM): 1 # of Steps: 4 Stairs Level Of Assist: 4 PT Plan Problem List Problem List: Activity Tolerance, Functional Strength Treatment/Plan Treatment Plan: Continue Plan of Care Treatment Plan: Bed Mobility, Education, Functional Activity Enrrique, Functional Strength, Group Therapy, Gait, Safety, Therapeutic Exercise, Transfers Treatment Duration: 4 wks Visits Per Week: 10-11 Minutes/Day (M-F): 60-90 Minutes/Day (Sat/Maddox): PRN Safety Risks/Education Patient Education: Safety Issues Teaching Recipient: Patient Teaching Methods: Discussion Response to Teaching: Verbalize Understanding Discussed that pt go throughout her home to get ideas for needs upon discharge. Time/GCodes Time In: 1045 Time Out: 1100 Total Billed Treatment Time: 15 Total Billed Treatment vsiit EX 15 HUMBERTO AQUINO PT Jan 15, 2016 11:13
--- NOTE | 2016-01-15 11:16 | Progress Note-Standard ---
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 Complications of vocal cord paralysis and aspiration, Pseudomonas pneumonia and completed antibiotic therapy. Currently undergoing rehabilitation with gradual improvement. Symptomatic anemia with hemoglobin level of 8.0, status post 2 units of packed red blood cell transfusion with improvement. She is sitting up in chair and feeling better today. Receiving tube feeds at 60 mL per hour continuously. Complained of loose stools yesterday with nursing documentation of 4 stools. No urinary symptoms. Still has cough productive of thick sputum. Currently on palliative hormonal therapy with Faslodex. Continue PT and OT. Maintain tracheostomy to prevent aspiration. We'll hold tube feedings for 1 hour and check for residual. If this is low, I will reduce Reglan to 5 mg before meals and at bedtime. Repeat CBC, BMP, magnesium and portable chest x-ray tomorrow morning. Obtain sputum for Gram stain and culture. ELHAM FLORES Jan 15, 2016 11:16
[2016-01-15] MEDS: METOCLOPRAMIDE 10MG/10ML ORAL SOL(REGLAN) UDC PO SCH ×2 (16:14→21:09)
[2016-01-15] MEDS: ENOXAPARIN 40 MG/0.4 ML (LOVENOX) SYR SC SCH (16:16)
[2016-01-15 18:00] VITALS: BP_SYST 102; BP_SYST 111; BP_DIAS 66; BP_DIAS 68
[2016-01-15] MEDS: APAP 325 MG/10.15 ML LIQ (TYLENOL) UDC JT PRN (21:10)
[2016-01-16] MEDS: RT-ALBUTEROL/IPRATROPIUM 3 ML (DUONEB) VIAL INH SCH ×4 (02:31→19:36)
[2016-01-16 04:14] VITALS: BP 101/66
[2016-01-16] MEDS: METOCLOPRAMIDE 10MG/10ML ORAL SOL(REGLAN) UDC PO SCH ×4 (06:17→21:12)
[2016-01-16] MEDS: ONDANSETRON 4 MG/2 ML (SDV) Z0FRAN IVP PRN ×3 (06:40→21:12)
[2016-01-16] MEDS: aCETylcysteine 20% (MUCOMYST) 30ML SOLN VIAL INH SCH ×2 (07:09→19:36)
[2016-01-16 08:00] LABS: BASOPHILS % (AUTO) 0 % (0-10); EOSINOPHILS % (AUTO) 1 % (0-10); LYMPHOCYTES # (AUTO) 0.9 X 10^3 (1.0-4.0); LYMPHOCYTES % (AUTO) 21 % (12-44); MEAN CORPUSCULAR HEMOGLOBIN 30 PG (25-34); MEAN CORPUSCULAR HGB CONC 32 G/DL (32-36); MEAN CORPUSCULAR VOLUME 93 FL (80-99); MEAN PLATELET VOLUME 8.2 FL (7.4-10.4); MONOCYTES # (AUTO) 0.6 X 10^3 (0.0-1.0); MONOCYTES % (AUTO) 15 % (0-12); NEUTROPHILS # (AUTO) 2.7 X 10^3 (1.8-7.8); NEUTROPHILS % (AUTO) 64 % (42-75); PLATELET COUNT 191 10^3/uL (130-400); RED CELL DISTRIBUTION WIDTH 17.6 % (10.0-14.5); WHITE BLOOD COUNT 4.2 10^3/uL (4.3-11.0)
[2016-01-16 08:20] LABS: ANION GAP 8 MMOL/L (5-14); BLOOD UREA NITROGEN 8 MG/DL (7-18); BUN/CREATININE RATIO 17; CALCIUM 9.2 MG/DL (8.5-10.1); CARBON DIOXIDE 29 MMOL/L (21-32); CHLORIDE 101 MMOL/L (98-107); CREATININE SERUM 0.48 MG/DL (0.60-1.30); GFR ESTIMATED > 60; GLUCOSE 105 MG/DL (70-105); MAGNESIUM 1.9 MG/DL (1.8-2.4); SODIUM 138 MMOL/L (135-145)
[2016-01-16] MEDS: LACTOBACILLUS Acidoph/Bulgar (LACTINEX/FLORANEX) TAB JT SCH ×4 (09:44→21:12)
[2016-01-16] MEDS: FAMOTIDINE 20 MG (PEPCID) TABLET JT SCH ×2 (09:45→21:12)
[2016-01-16] MEDS: MAGNESIUM OXIDE (MAG-OX)400 MG TAB JT SCH ×2 (09:45→17:34)
[2016-01-16] MEDS: guaiFENesin SYRUP 100 MG/5 ML 10 ML (ROBITUSSIN SF) JT SCH ×4 (09:45→21:12)
[2016-01-16] MEDS: DIPHENOXYLATE/ATROPINE 2.5MG/0.025MG (LOMOTIL) TAB JT SCH ×2 (09:45→21:12)
[2016-01-16] MEDS ORDERED: GENTAMICIN 100 MG/50 ML IV ONE (11:15)
[2016-01-16] MEDS ORDERED: PIPERACILLIN SODIUM/TAZOBACTAM 4.5 GM in NORMAL SALINE (BAXTER MINI) 100 ML IV ONE (11:15)
--- NOTE | 2016-01-16 11:17 | Progress Note-Standard ---
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 Complications of vocal cord paralysis and aspiration, Pseudomonas pneumonia and completed antibiotic therapy. Currently undergoing rehabilitation with gradual improvement. Symptomatic anemia with hemoglobin level of 8.0, status post 2 units of packed red blood cell transfusion with improvement. She is sitting up in chair and feeling better today. Receiving tube feeds at 60 mL per hour continuously. Stools are more formed today and no diarrhea. No urinary symptoms. Still has cough productive of thick sputum. Currently on palliative hormonal therapy with Faslodex. Continue PT and OT. Maintain tracheostomy to prevent aspiration. Gastric residual was zero yesterday. Reglan was reduced to 5 mg AC and HS. Sputum growing abundant Pseudomonas and a second gram negative reshma. Sensitivity pending. Will empirically start on Zosyn and Gentamycin and can be adjusted tomorrow after sensitivity results available. Will need double gram negative coverage for 10-14 days. Patient scheduled to go out on pass for 2 hours. ELHAM FLORES Jan 16, 2016 11:17
[2016-01-16] MEDS ORDERED: NS IV SCH (12:00)
[2016-01-16] MEDS ORDERED: GENTAMICIN IV SCH (12:00)
--- NOTE | 2016-01-16 12:40 | Diagnostic Imaging Report ---
INDICATION: Followup of density noted on 01/12/2016 exam. FINDINGS: Tracheostomy tube is present over the tracheal shadow. Right central line present unchanged. There continues to be increased density in the left upper lobe as previously reported as well as along the right upper lobe adjacent to the mediastinum. Lower lungs are clear. There is no pleural effusion. The heart is not enlarged. No pulmonary edema. IMPRESSION: 1. Persistent density remaining in the upper lobes bilaterally with no appreciable change since previous exam. Dictated by: Dictated on workstation # [id number]
[2016-01-16 17:25] VITALS: BP 110/79
[2016-01-16] MEDS: PIPERACILLIN SODIUM/TAZOBACTAM 4.5 GM in NORMAL SALINE (BAXTER MINI) 100 ML IV SCH (17:34)
[2016-01-16] MEDS: ENOXAPARIN 40 MG/0.4 ML (LOVENOX) SYR SC SCH (17:34)
[2016-01-16] MEDS ORDERED: TROUGH ORDER-PHARMACY XX NR (21:00)
[2016-01-17] MEDS: RT-ALBUTEROL/IPRATROPIUM 3 ML (DUONEB) VIAL INH SCH ×4 (01:42→20:18)
[2016-01-17] MEDS: PIPERACILLIN SODIUM/TAZOBACTAM 4.5 GM in NORMAL SALINE (BAXTER MINI) 100 ML IV SCH (02:10)
[2016-01-17] MEDS: METOCLOPRAMIDE 10MG/10ML ORAL SOL(REGLAN) UDC PO SCH ×4 (05:25→21:12)
[2016-01-17 06:00] VITALS: BP 98/65
[2016-01-17 06:08] LABS: ANION GAP 11 MMOL/L (5-14); BLOOD UREA NITROGEN 9 MG/DL (7-18); BUN/CREATININE RATIO 16; CALCIUM 8.9 MG/DL (8.5-10.1); CARBON DIOXIDE 25 MMOL/L (21-32); CHLORIDE 101 MMOL/L (98-107); CREATININE SERUM 0.56 MG/DL (0.60-1.30); GFR ESTIMATED > 60; GLUCOSE 133 MG/DL (70-105); POTASSIUM 4.1 MMOL/L (3.6-5.0); SODIUM 137 MMOL/L (135-145)
[2016-01-17] MEDS: aCETylcysteine 20% (MUCOMYST) 30ML SOLN VIAL INH SCH ×2 (06:46→20:17)
--- NOTE | 2016-01-17 07:14 | Pulmonary Progress Note ---
Subjective Subjective/Events-last exam Sputum has grown pseudomonus again Exam Exam Vital Signs Date Time Temp Pulse Resp B/P Pulse Ox O2 Delivery O2 Flow Rate FiO2 01/17/16 06:46 92 Room Air 01/17/16 06:00 99.5 101 18 98/65 92 Room Air 01/17/16 01:42 98 Room Air 01/16/16 20:00 Room Air 01/16/16 19:37 93 Room Air 01/16/16 17:25 98.3 75 110/79 18 Room Air 01/16/16 08:00 Room Air I & O 01/17/16 07:00 Intake Total 2235.75 ml Output Total 1225 ml Balance 1010.75 ml General Appearance: Chronically ill HEENT: PERRL/EOMI Neck: Non Tender Supple Respiratory: Crackles (coarse crackles bilaterally) Cardiovascular: Regular Rate, Rhythm No Edema No Gallop No JVD Gastrointestinal: normal bowel sounds non tender soft (JPEG in place) Extremity: Non Tender No Pedal Edema Neurologic/Psychiatric: Motor Weakness Results Lab Laboratory Tests 01/16/16 07:45 01/17/16 05:45 Assessment/Plan Assessment/Plan Metastatic breast CA to posterior brain s/p crani and resection OSH S/p mechanical ventilation for respiratory failure and vocal cord paralysis s/p tracheostomy -Cap trach during day -SVNs -Suction PRN s/p Pseudomonus pneumonia -change Abx to Levaquin Clinical Quality Measures DVT/VTE Risk/Contraindication: Risk Factor Score Per Nursin RFS Level Per Nursing on Admit: 4+=Very High CAROLYN CRAWFORD DO Jan 17, 2016 07:14
[2016-01-17] MEDS: CATHETER FLUSH 10 ML SYR IV PRN ×3 (07:47→21:25)
[2016-01-17] MEDS: LEVOFLOXACIN 750 MG/150 ML IV 150 ML IV SCH (07:47)
[2016-01-17] MEDS: FAMOTIDINE 20 MG (PEPCID) TABLET JT SCH ×2 (07:48→21:12)
[2016-01-17] MEDS: guaiFENesin SYRUP 100 MG/5 ML 10 ML (ROBITUSSIN SF) JT SCH ×4 (07:48→21:12)
[2016-01-17] MEDS: DIPHENOXYLATE/ATROPINE 2.5MG/0.025MG (LOMOTIL) TAB JT SCH ×2 (07:48→21:12)
[2016-01-17] MEDS: MAGNESIUM OXIDE (MAG-OX)400 MG TAB JT SCH ×2 (07:48→17:28)
[2016-01-17] MEDS: LACTOBACILLUS Acidoph/Bulgar (LACTINEX/FLORANEX) TAB JT SCH ×4 (07:48→21:12)
--- NOTE | 2016-01-17 09:08 | Speech Therapy Daily Note ---
Speech Daily Progress Note Subjective The patient was laying in bed upon entrance. The patient agreed to participate in dysphagia therapy on this date, however, continues to report fatigue. Objective Prior to the onset of exercises, the patient requested suctioning from the clinician. The clinician provided suctioning through the tracheostomy tube to the patient's comfort. Exercises were initiated following suctioning. Dysphagia Exercises: The patient completed dysphagia exercises with fair to good accuracy and mild clinician verbal prompting and direct modeling. The patient continues to demonstrate high fatigue throughout the session. Prior to the session the patient stated, "I just don't know that I can right now." Assessment Assessment Current Status: Fair Progress Treatment Plan Continue Plan of Care Communication Comprehension: 5 Expression: 5 Social Cognition Social Interaction: 5 Problem Solvin Memory: 5 Speech Short Term Goals Short Term Goals Short Term Goals 1. The patient will independently demonstrate laryngeal, pharyngeal, and base of tongue exercises. Time Frame-STG: Two Weeks Speech Skilled Nursing Goals Skilled Nursing Goals 1. The patient will tolerate PO trials of the least restrictive consistency without signs/symptoms of aspiration or laryngeal penetration. Time Frame: Eight Weeks Comprehension: 6 Expression: 5 Social Interaction: 5 Problem Solvin Memory: 5 Speech-Plan Treatment Plan Speech Therapy Treatment Plan: Continue Plan of Care Treatment Duration: 30 # of days/week 4 to 5 Visits Per Week: 4 to 5 Minutes/Day (M-F): 30 Rehab Potential: Guarded Safety Risks/Education Teaching Recipient: Patient Teaching Methods: Demonstration, Handout Response to Teaching: Return Demonstration, Reinforcement Needed Education Topics Provided: Dysphagia Exercises Time Speech Therapy Time In: 08:00 Speech Therapy Time Out: 08:30 Total Billed Time: 30 Billed Treatment Time 1, GILBERT JAMES Jan 17, 2016 09:08
[2016-01-17] MEDS: CEFEPIME INJECTION 2,000 MG in NORMAL SALINE (BAXTER MINI) 50 ML IV SCH ×2 (09:23→21:17)
[2016-01-17] MEDS: ONDANSETRON 4 MG/2 ML (SDV) Z0FRAN IVP PRN ×3 (09:39→21:25)
--- NOTE | 2016-01-17 11:36 | Occupational Ther Daily Note ---
OT Current Status-Daily Note Subjective Pt seen in room, up in recliner, agreeable to OT. "Pat, I'm just really weak today." No pain mentioned. She reported her pass home on Sunday went well ( other than coughing out inside ot trach) and it was hard for her to come back. Appearance Alert, cooperative, looks fatigued. Mental Status/Objective Functional [place] Measure 0=Not Assessed/NA 4=Minimal Assistance 1=Total Assistance 5=Supervision or Setup 2=Maximal Assistance 6=Modified [place] 3=Moderate Assistance 7=Complete [place] Attachments: Central Line, IV, PEG Tube, Other-See Comments (trach) ADL-Treatment Transfers (B, C, W/C) (FIM): 4 (MIn assist recliner to w/c, FWW) Other Treatment Pt helped propel w/c to gym, using feet but not arms. Worked on bilat pinch using graded clothespins, Pt was able to pinch yellow and red ones, as well as one green one, with R hand (starting with low resistance). With L hand was able to operate green and blue clothespins as well as one time black one (hardest). Also worked on reaching and grasping 1/2" pegs with R hand, requiring her to manipulate them in her hand. Worked with 1" pegs with1/4" stems for placing - she could get pegs in place with R hand but didn't have strength to push peg into board for stability. Did 8 minutes bilat UE exercise on arm bike set at 10W resistance (increased resistance so decreased time), as needed for standing during ADLs. Pt became nauseated during tx but continued to work through it. Pt helped propel herself back to her room. Care transferred to Speech. Education OT Patient Education: Progress toward Goal/Update tx plan, Purpose of tx/ functional activities, W/C management Teaching Recipient: Patient Teaching Methods: Discussion Response to Teaching: Verbalize Understanding OT Short Term Goals Short Term Goals Time Frame: 2 weeks Lower Body Dressing(FIM): 4 Toileting(FIM): 4 Transfers (B,C,W/C) (FIM): 5 Toilet/Commode Transfer(FIM): 4 Shower Transfer(FIM): 5 1=Demonstrate adherence to instructed precautions during ADL tasks. 2=Patient will verbalize/demonstrate understanding of assistive devices/ modifications for ADL. 3=Patient will improve strength/tolerance for activity to enable patient to perform ADL's. OT Rim Fire Priming Tool Setter Goals Intermediate Goals Time Frame: 4 weeks Eating (FIM): 1 Grooming(FIM): 6 Bathing(FIM): 6 Upper Body Dressing(FIM): 6 Lower Body Dressing(FIM): 5 Toileting(FIM): 5 Transfers (B,C,W/C) (FIM): 5 Toilet/Commode Transfer(FIM): 5 Shower Transfer(FIM): 5 Comprehension(FIM): 6 Expression (FIM): 5 Social Interaction(FIM): 5 Problem Solving(FIM): 5 Memory(FIM): 5 Additional Goals: 2-Verbalize Understanding, 3-ImproveStrength/Enrrique 1=Demonstrate adherence to instructed precautions during ADL tasks. 2=Patient will verbalize/demonstrate understanding of assistive devices/ modifications for ADL. 3=Patient will improve strength/tolerance for activity to enable patient to perform ADL's. OT Education/Plan Problem List/Assessment Pt would benefit from skilled OT to increase her independence in basic self care to allow her to return home safely Discharge Recommendations Plan/Recommendations: Continue POC Treatment Plan/Plan of Care Patient would benefit from OT for education, treatment and training to promote independence in ADL's, mobility, safety and/or upper extremity function for ADL' s. Plan of Care: ADL Retraining, Caregiver Training, Functional Mobility, Orthotic Fitting/Training, UE Funct Exercise/Act, UE Neuromus Re-Ed/Coord Treatment Duration: 4 weeks Visits Per Week: 10-11 Minutes/Day (M-F): 75-90 Minutes/Day (Sat/Maddox): prn Agreement: Yes Rehab Potential: Guarded Time/GCodes Start Time: 09:00 Stop Time: 09:45 Total Time Billed (hr/min): 45 Billed Treatment Time visit, 30 minutes neuromotor, 15 minutes exercise PAT ATKINS OT Jan 17, 2016 11:36
--- NOTE | 2016-01-17 11:42 | Physical Therapy Daily Note ---
PT Daily Note-Current Subjective Pt reports very nauseous but per nursing has received all meds she can receive for nausea. Pt also reports very fatigued from pass to go home yesterday and therapy this morning. Pt agrees to PT because wants to discharge and go home. Pain Numeric Pain Scale: 0-No Pain Location: No Pain Reported Mental Status Patient Orientation: Person, Place, Time, Situation Attachments: PEG Tube, Other-See Comments (Trach.) Transfers Scootin Rollin Supine to/from Sit: 4 Weight Bearing Weight Bearing Restriction: Full Weight Bearing Location Restriction: LE Bilateral Exercises Supine Ex: Ankle pumps, Quad Set, Glut sets, Heel Slides, Straight leg raise, Hip abd/add Supine Reps: 15 Treatments Pt reports very nauseated and fatigued this morning. Pt agrees to PT but just starting with supine EX until nausea is more under control. Pt preforms supine EX in bed with several rest breaks through. Pt is educated on energy conservation and knowing her limits for times of weakness. Pt is also given VC for transfer techniques. Pt is given encouragement on attempting to sit at EOB. At EOB, feeding tube becomes disconnected and asked for nursing assistance to reattach. Pt sits at EOB for approx. 5m before needing to return to supine in bed. Pt is left with all needs met at end of tx. Assessment Current Status: Fair Progress Pt continues to fatigue easy and need rest breaks during tx. Pt has less nausea during tx after nurse gives med. PT Short Term Goals Short Term Goals Time Frame: Two Weeks Transfers (B,C,W/C) (FIM): 5 Gait (FIM): 1 Distance (FIM): 1=up to 49 ft Gait Distance Comment: 25' Gait Level of Assist: 3 Gait Assistive Device: FWW Wheelchair (FIM): 1 (achieved on 01/13/16) Wheelchair distance (FIM): 1=up to 49 ft Wheelchair Distance: 200 ft and 150 ft x 2 Wheelchair Level of Assist: 4 PT Intermediate Goals Twisting Frame Changer Goals Time Frame: 4 wks Transfers (B,C,W/C) (FIM): 5 Gait (FIM): 1 Gait distance (FIM): 1=up to 49 ft Distance: 45' Gait Level of Assist: 4 Gait Assistive Device: FWW Stairs (FIM): 1 # of Steps: 4 Stairs Level Of Assist: 4 PT Plan Problem List Problem List: Activity Tolerance, Functional Strength, Safety, Balance, Gait, Transfer, Bed Mobility Treatment/Plan Treatment Plan: Continue Plan of Care Treatment Plan: Bed Mobility, Education, Functional Activity Enrrique, Functional Strength, Group Therapy, Gait, Safety, Therapeutic Exercise, Transfers Treatment Duration: 4 wks Visits Per Week: 10-11 Minutes/Day (M-F): 60-90 Minutes/Day (Sat/Maddox): PRN Safety Risks/Education Patient Education: Transfer Techniques, Correct Positioning, Disease Process, Safety Issues Teaching Recipient: Patient Teaching Methods: Discussion Response to Teaching: Verbalize Understanding Time/GCodes Time In: 1030 Time Out: 1130 Total Billed Treatment Time: 60 Total Billed Treatment visit, EX X3 (45m), FA (15m) LUISA DASILVA PTA Jan 17, 2016 11:42
[2016-01-17] MEDS: ENOXAPARIN 40 MG/0.4 ML (LOVENOX) SYR SC SCH (16:50)
--- NOTE | 2016-01-17 17:18 | Progress Note (SOAP) ---
Subjective Subjective/Events-last exam Continues to report fatigue. She is now receiving cefepime and levofloxacin since her pseudomonas aeruginosa was resistant to Zosyn and gentamicin. Objective Exam Vital Signs Date Time Temp Pulse Resp B/P Pulse Ox O2 Delivery O2 Flow Rate FiO2 01/17/16 14:28 94 Room Air 01/17/16 08:00 92 Room Air 01/17/16 06:46 92 Room Air 01/17/16 06:00 99.5 101 18 98/65 92 Room Air 01/17/16 01:42 98 Room Air 01/16/16 20:00 Room Air 01/16/16 19:37 93 Room Air 01/16/16 17:25 98.3 75 110/79 18 Room Air I & O 01/17/16 07:00 Intake Total 2235.75 ml Output Total 1225 ml Balance 1010.75 ml Capillary Refill : General Appearance: No Apparent Distress Chronically ill HEENT: PERRL/EOMI Neck: Other (tracheostomy in place) Respiratory: Crackles Cardiovascular: Regular Rate, Rhythm No Edema No Gallop Gastrointestinal: normal bowel sounds other (3 Lumen jejunostomy tube in place ) Neurologic/Psychiatric: Alert Oriented x3 Motor Weakness Results Lab Laboratory Tests 01/17/16 05:45 Laboratory Tests 01/16/16 21:15: Random Gentamicin Level 3.1 01/17/16 05:45: Anion Gap 11, BUN/Creatinine Ratio 16, Blood Urea Nitrogen 9, Calcium Level 8.9 , Carbon Dioxide Level 25, Chloride Level 101, Creatinine 0.56L, Estimat Glomerular Filtration Rate > 60, Glucose Level 133H, Potassium Level 4.1, Sodium Level 137 Microbiology 01/15/16 Gram Stain - Final, Resulted 01/15/16 Sputum Culture - Preliminary, Resulted Pseudomonas Aeruginosa Klebsiella Pneumoniae Assessment/Plan Assessment/Plan Assess & Plan/Chief Complaint 1. Recurrent Pseudomonas pneumonia-receiving IV levofloxacin and IV cefepime 2. Symptomatic anemia-improved since receiving 2 units packed RBCs. 3. History of brain metastasis, status post resection at [facility] October 2015--Whole brain radiation completed on 01/04/16; a. Decadron has been tapered off. 4. 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 a. Faslodex 500mg day 1 has been given on 12/22/15; b. Faslodex 500 mg day 15 given on 01/05/16 and next dose is due 01/19/16; 4. Vocal cord paralysis/dysphagia--patient has JPEG for tube feeding. a. Barium swallow done 01/04/16 positive for aspiration; 5. Debility--patient is receiving PT and OT to optimize functional status Diagnosis/Problems: Clinical Quality Measures DVT/VTE Risk/Contraindication: Risk Factor Score Per Nursin RFS Level Per Nursing on Admit: 4+=Very High ONESIMO HUFFMAN MD Jan 17, 2016 17:18 RFS Level Per Nursing on Admit: 4+=Very High ONESIMO HUFFMAN MD Jan 17, 2016 17:18
[2016-01-17 18:00] VITALS: BP 102/68
[2016-01-17] MEDS: APAP 325 MG/10.15 ML LIQ (TYLENOL) UDC JT PRN (21:16)
[2016-01-17] MEDS ORDERED: ONDANSETRON 4 MG/2 ML (SDV) Z0FRAN IVP ONE (23:30)
[2016-01-18] MEDS: RT-ALBUTEROL/IPRATROPIUM 3 ML (DUONEB) VIAL INH SCH ×4 (03:00→20:22)
[2016-01-18 05:50] VITALS: BP 99/64
[2016-01-18] MEDS: METOCLOPRAMIDE 10MG/10ML ORAL SOL(REGLAN) UDC PO SCH ×4 (05:52→20:50)
[2016-01-18] MEDS: ONDANSETRON 4 MG/2 ML (SDV) Z0FRAN IVP PRN ×3 (06:04→20:49)
[2016-01-18] MEDS: CATHETER FLUSH 10 ML SYR IV PRN ×2 (06:05→09:46)
[2016-01-18] MEDS: APAP 325 MG/10.15 ML LIQ (TYLENOL) UDC JT PRN ×2 (06:05→20:50)
[2016-01-18] MEDS: LEVOFLOXACIN 750 MG/150 ML IV 150 ML IV SCH (06:46)
--- NOTE | 2016-01-18 08:31 | PM & R (SOAP) Progress Note ---
Subjective Subjective/Events-last exam Patient was seen in her room this AM Called by Nursing last night re patients c/ o nausea. Extra dose of Zofran provided Patient feeling better this AM Patients spouse presents this AM Wishing to speak to DR Bardales SW to arrange DR Melvin note appreciated.Patient min assist for transfers Objective Exam Last Set of Vital Signs Vital Signs Date Time Temp Pulse Resp B/P Pulse Ox O2 Delivery O2 Flow Rate FiO2 01/18/16 05:50 99.2 95 20 99/64 95 Room Air Capillary Refill : I&O Intake and Output 01/18/16 00:00 Intake Total 2414 ml Output Total 1825 ml Balance 589 ml Intake Oral 0 ml IV Total 360 ml Tube Feeding 1074 ml Other 980 ml Output Urine Total 1825 ml # Voids 1 # Urine Diapers 1 # Bowel Movements 3 General: Alert, Oriented X3, Cooperative, No Acute Distress HEENT: Atraumatic, PERRLA, EOMI, Mucous Memb Moist/[place] Neck: Other (Trach functioning) Lungs: Clear to Auscultation Heart: Regular Rate Abdomen: Normal Bowel Sounds, Soft, No Tenderness, Other (feeding tube in place ) Extremities: No Edema Neuro: Other (generalized weakness) Results Lab Laboratory Tests 01/16/16 07:45: Anion Gap 8, BUN/Creatinine Ratio 17, Basophils # (Auto) 0.0, Basophils (%) ( Auto) 0, Blood Urea Nitrogen 8, Calcium Level 9.2, Carbon Dioxide Level 29, Chloride Level 101, Creatinine 0.48L, Eosinophils # (Auto) 0.0, Eosinophils (%) (Auto) 1, Estimat Glomerular Filtration Rate > 60, Glucose Level 105, Hematocrit 32L, Hemoglobin 10.4L, Lymphocytes # (Auto) 0.9L, Lymphocytes (%) ( Auto) 21, Magnesium Level 1.9, Mean Corpuscular Hemoglobin 30, Mean Corpuscular Hemoglobin Concent 32, Mean Corpuscular Volume 93, Mean Platelet Volume 8.2, Monocytes # (Auto) 0.6, Monocytes (%) (Auto) 15H, Neutrophils # (Auto) 2.7, Neutrophils (%) (Auto) 64, Platelet Count 191, Potassium Level 4.0, Red Blood Count 3.50L, Red Cell Distribution Width 17.6H, Sodium Level 138, White Blood Count 4.2L 01/16/16 21:15: Random Gentamicin Level 3.1 01/17/16 05:45: Anion Gap 11, BUN/Creatinine Ratio 16, Blood Urea Nitrogen 9, Calcium Level 8.9 , Carbon Dioxide Level 25, Chloride Level 101, Creatinine 0.56L, Estimat Glomerular Filtration Rate > 60, Glucose Level 133H, Potassium Level 4.1, Sodium Level 137 Microbiology 01/15/16 Gram Stain - Final, Resulted 01/15/16 Sputum Culture - Preliminary, Resulted Pseudomonas Aeruginosa Klebsiella Pneumoniae Assessment/Plan Assessment S/P crani and removal Met lesion from breast ca Dysphagia NPO on tube feeds S/P trach ontrac collar at night and with PMV during day S/P Radiation Therapy course while on Swing bed anemia s/p transfusion 2 unis PRBCS intermittent nausea improved at this point Plan Continue PT/OT/ST Appreciate their notes and Specialists notes. See report for full functional update and POC and ELOS, SW to f/u re possible family conference with [facility] to discuss Prognosis and POC Oral Thrush treated- Nystatin d/cd last evening. Next Team Conference tomorrow. UZMA VILLALOBOS MD Jan 18, 2016 08:31
--- NOTE | 2016-01-18 08:59 | Pulmonary Progress Note ---
Subjective Subjective/Events-last exam no complications noted. Exam Exam Vital Signs Date Time Temp Pulse Resp B/P Pulse Ox O2 Delivery O2 Flow Rate FiO2 01/18/16 08:00 95 Room Air 01/18/16 05:50 99.2 95 20 99/64 95 Room Air 01/17/16 20:55 92 Room Air 01/17/16 20:18 92 Room Air 01/17/16 18:00 99.0 20 102/68 91 Room Air 01/17/16 14:28 94 Room Air I & O 01/18/16 07:00 Intake Total 2258 ml Output Total 2175 ml Balance 83 ml General Appearance: Chronically ill HEENT: PERRL/EOMI Neck: Non Tender Supple Respiratory: Crackles (coarse crackles bilaterally) Cardiovascular: Regular Rate, Rhythm No Edema No Gallop No JVD Gastrointestinal: normal bowel sounds non tender soft (JPEG in place) Extremity: Non Tender No Pedal Edema Neurologic/Psychiatric: Alert Motor Weakness Results Lab Laboratory Tests 01/17/16 05:45 Assessment/Plan Assessment/Plan Metastatic breast 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 -There is no reason to double cover for pseudomonas since we know the sensitivities. I am going to D/C cefepime there is no additional benefit to adding Cefepime. Clinical Quality Measures DVT/VTE Risk/Contraindication: Risk Factor Score Per Nursin RFS Level Per Nursing on Admit: 4+=Very High CAROLYN CRAWFORD DO Jan 18, 2016 08:59
[2016-01-18] MEDS: aCETylcysteine 20% (MUCOMYST) 30ML SOLN VIAL INH SCH ×2 (09:00→20:22)
--- NOTE | 2016-01-18 09:10 | Speech Therapy Daily Note ---
Speech Daily Progress Note Subjective The patient was seated upright in bed upon entrance. The patient's father is present for the duration of the session. Patient reports fatigue, however, is agreeable to ST. Objective Dysphagia Exercises: The patient continues to report fatigue, however, cooperates throughout the session. The patient continues to demonstrate good accuracy with dysphagia exercises with limited clinician prompting. The patient is able to expectorate secretions into the oral cavity on this date. Education: A large portion of this date's session focused on education as the patient's father requested information regarding the swallowing and voice structures. He verbalized comprehension of the material and denied additional questions regarding the patient's progression. Assessment Assessment Current Status: Fair Progress Treatment Plan Continue Plan of Care Communication Comprehension: 5 Expression: 5 Social Cognition Social Interaction: 5 Problem Solvin Memory: 5 Speech Short Term Goals Short Term Goals Short Term Goals 1. The patient will independently demonstrate laryngeal, pharyngeal, and base of tongue exercises. Time Frame-STG: Two Weeks Speech Marine Radio Installer And Servicer Goals Fdc Goals 1. The patient will tolerate PO trials of the least restrictive consistency without signs/symptoms of aspiration or laryngeal penetration. Time Frame: Eight Weeks Comprehension: 6 Expression: 5 Social Interaction: 5 Problem Solvin Memory: 5 Speech-Plan Treatment Plan Speech Therapy Treatment Plan: Continue Plan of Care Treatment Duration: 30 # of days/week 4 to 5 Visits Per Week: 4 to 5 Minutes/Day (M-F): 30 Rehab Potential: Guarded Safety Risks/Education Teaching Recipient: Patient, Family Teaching Methods: Demonstration, Handout, Discussion Response to Teaching: Verbalize Understanding Education Topics Provided: Swallowing and Voice Structures Time Speech Therapy Time In: 08:00 Speech Therapy Time Out: 08:30 Total Billed Time: 30 Billed Treatment Time 1ASAEL ELIZABETH ST Jan 18, 2016 09:10
[2016-01-18] MEDS: guaiFENesin SYRUP 100 MG/5 ML 10 ML (ROBITUSSIN SF) JT SCH ×4 (09:45→20:50)
[2016-01-18] MEDS: FAMOTIDINE 20 MG (PEPCID) TABLET JT SCH ×2 (09:46→20:49)
[2016-01-18] MEDS: CEFEPIME INJECTION 2,000 MG in NORMAL SALINE (BAXTER MINI) 50 ML IV SCH ×2 (09:46→20:48)
[2016-01-18] MEDS: DIPHENOXYLATE/ATROPINE 2.5MG/0.025MG (LOMOTIL) TAB JT SCH (09:46)
[2016-01-18] MEDS: MAGNESIUM OXIDE (MAG-OX)400 MG TAB JT SCH ×2 (09:46→18:29)
[2016-01-18] MEDS: LACTOBACILLUS Acidoph/Bulgar (LACTINEX/FLORANEX) TAB JT SCH ×4 (09:46→20:49)
[2016-01-18] MEDS: BENEFIBER (FROM DIETARY) DOCUMENTATION PURPOSE ONLY PO SCH ×3 (09:54→20:50)
--- NOTE | 2016-01-18 10:07 | Progress Note (SOAP) ---
Subjective Subjective/Events-last exam Still with cough and increased sputum production; Spoke with father for 30 minutes this morning and addressed all his questions and concerns. He voiced understanding; Dr. Staples also present for later part of our meeting; Objective Exam Vital Signs Date Time Temp Pulse Resp B/P Pulse Ox O2 Delivery O2 Flow Rate FiO2 01/18/16 08:00 95 Room Air 01/18/16 05:50 99.2 95 20 99/64 95 Room Air 01/17/16 20:55 92 Room Air 01/17/16 20:18 92 Room Air 01/17/16 18:00 99.0 20 102/68 91 Room Air 01/17/16 14:28 94 Room Air I & O 01/18/16 07:00 Intake Total 2258 ml Output Total 2175 ml Balance 83 ml Capillary Refill : General Appearance: No Apparent Distress Chronically ill HEENT: PERRL/EOMI Neck: Non Tender Other ( Capped tracheostomy in place) Respiratory: Crackles Cardiovascular: Regular Rate, Rhythm No Edema No Gallop Gastrointestinal: normal bowel sounds non tender other (JPEG tube in place;) Neurologic/Psychiatric: Alert Oriented x3 Depressed Affect Motor Weakness Results Lab Laboratory Tests 01/17/16 05:45 Microbiology 01/15/16 Gram Stain - Final, Resulted 01/15/16 Sputum Culture - Preliminary, Resulted Pseudomonas Aeruginosa Klebsiella Pneumoniae Radiology Chest x-ray done 01/16/16:IMPRESSION: 1. Persistent density remaining in the upper lobes bilaterally with no appreciable change since previous exam. Assessment/Plan Assessment/Plan Assess & Plan/Chief Complaint 1. Recurrent Pseudomonas pneumonia--bilateral upper lobes--patient is receiving IV cefepime and IV levofloxacin which should be continued for a minimum of 14 days. 2. Symptomatic anemia-check iron studies, vitamin B-12, folate and transfuse 2 units packed RBCs. 3. History of brain metastasis, status post resection at [facility] October 2015--Whole brain radiation completed on 01/04/16; a. Decadron has been tapered off. 4. 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 a. Faslodex 500mg day 1 has been given on 12/22/15; b. Faslodex 500 mg day 15 given on 01/05/16 and next dose is due 01/19/16; 5. Vocal cord paralysis/dysphagia--patient has JPEG for tube feeding. a. Barium swallow done 01/04/16 positive for aspiration; 6. Debility--patient is receiving PT and OT to optimize functional status however PT staff relates that patient does not always cooperate with the regimen because of fatigue. Diagnosis/Problems: Clinical Quality Measures DVT/VTE Risk/Contraindication: Risk Factor Score Per Nursin RFS Level Per Nursing on Admit: 4+=Very High ONESIMO HUFFMAN MD Jan 18, 2016 10:07
--- NOTE | 2016-01-18 11:55 | Physical Therapy Daily Note ---
PT Daily Note-Current Subjective Patient is up in recliner with father present. Patient agrees to therapy. Pain Numeric Pain Scale: 5-Moderate Pain Location: Soft Tissue Location Body Site: Generalized Pain Description: Ache Comment: patient states her total body hurts Mental Status Patient Orientation: Normal For Age Attachments: PEG Tube Transfers Transfers (B, C, W/C) (FIM): 3 Scootin Sit to/from Stand: 3 transfer recliner to w/c mod assist with patient "dancing" with PT Gait Training Gait (FIM): 1 Distance (FIM): 1=up to 49 ft Distance: 8' x 8 sets forward and backward Gait Level of Assist: 3 Gait Persons Needed: 1 Gait Assistive Device: Parallel Bars patient demonstrated erect posture in parallel bars with gait training Wheelchair Training Wheelchair (FIM): 2 Wheelchair Distance: 6=627-31 ft Distance: 50' x 3 Wheelchair Level of Assist: 5 Exercises Seated Therapy Exercises: Ankle pumps, Long arc quads, Hip flexion Seated Reps: 25 (3 sets) Assessment Patient tolerated treatment with frequent recovery periods due to fatigue. Patient returned to room and is in bed with 4 rails up and call light in hand. RN present. PT Short Term Goals Short Term Goals Time Frame: Two Weeks Transfers (B,C,W/C) (FIM): 5 Gait (FIM): 1 Distance (FIM): 1=up to 49 ft Gait Distance Comment: 25' Gait Level of Assist: 3 Gait Assistive Device: FWW Wheelchair (FIM): 1 (achieved on 01/13/16) Wheelchair distance (FIM): 1=up to 49 ft Wheelchair Distance: 200 ft and 150 ft x 2 Wheelchair Level of Assist: 4 PT Budget Consultant Goals Budget Consultant Goals Time Frame: 4 wks Transfers (B,C,W/C) (FIM): 5 Gait (FIM): 1 Gait distance (FIM): 1=up to 49 ft Distance: 45' Gait Level of Assist: 4 Gait Assistive Device: FWW Stairs (FIM): 1 # of Steps: 4 Stairs Level Of Assist: 4 PT Plan Treatment/Plan Treatment Plan: Continue Plan of Care Treatment Plan: Bed Mobility, Education, Functional Activity Enrrique, Functional Strength, Group Therapy, Gait, Safety, Therapeutic Exercise, Transfers Treatment Duration: 4 wks Visits Per Week: 10-11 Minutes/Day (M-F): 60-90 Minutes/Day (Sat/Maddox): PRN Time/GCodes Time In: 1040 Time Out: 1145 Total Billed Treatment Time: 65 Total Billed Treatment 1 visit [facility] 20 min EX 20 min GT x 2 25 min TONG STROUD PT Jan 18, 2016 11:55
--- NOTE | 2016-01-18 13:50 | Physical Therapy Daily Note ---
PT Daily Note-Current Subjective Patient is very agreeable to participate with PT. Pain Numeric Pain Scale: 0-No Pain Location: No Pain Reported Mental Status Patient Orientation: Normal For Age Attachments: PEG Tube Transfers Transfers (B, C, W/C) (FIM): 3 Scootin Rollin Supine to/from Sit: 5 Sit to/from Stand: 3 Bed to/from Chair: 3 Exercises Supine Ex: Bridging, Ankle pumps, Quad Set, Straight leg raise, Hip abd/add Supine Reps: 15 Assessment Patient very fatigued from the activities of the day. PT to increase activity as tolerated by patient. PT Short Term Goals Short Term Goals Time Frame: Two Weeks Transfers (B,C,W/C) (FIM): 5 Gait (FIM): 1 Distance (FIM): 1=up to 49 ft Gait Distance Comment: 25' Gait Level of Assist: 3 Gait Assistive Device: FWW Wheelchair (FIM): 1 (achieved on 01/13/16) Wheelchair distance (FIM): 1=up to 49 ft Wheelchair Distance: 50' x 3 Wheelchair Level of Assist: 4 PT Research Associate Goals Half-Way Goals Time Frame: 4 wks Transfers (B,C,W/C) (FIM): 5 Gait (FIM): 1 Gait distance (FIM): 1=up to 49 ft Distance: 45' Gait Level of Assist: 4 Gait Assistive Device: FWW Stairs (FIM): 1 # of Steps: 4 Stairs Level Of Assist: 4 PT Plan Treatment/Plan Treatment Plan: Continue Plan of Care Treatment Plan: Bed Mobility, Education, Functional Activity Enrrique, Functional Strength, Group Therapy, Gait, Safety, Therapeutic Exercise, Transfers Treatment Duration: 4 wks Visits Per Week: 10-11 Minutes/Day (M-F): 60-90 Minutes/Day (Sat/Maddox): PRN Time/GCodes Time In: 1335 Time Out: 1345 Total Billed Treatment Time: 10 Total Billed Treatment 1 visit EX 10 min TONG STROUD PT Jan 18, 2016 13:50
--- NOTE | 2016-01-18 13:56 | Occupational Ther Daily Note ---
OT Current Status-Daily Note Appearance Pt was alert and able to communicate verbally Mental Status/Objective Functional [place] Measure 0=Not Assessed/NA 4=Minimal Assistance 1=Total Assistance 5=Supervision or Setup 2=Maximal Assistance 6=Modified [place] 3=Moderate Assistance 7=Complete [place] Attachments: Central Line, PEG Tube, Other-See Comments (Trach) Central line and trach line were covered during shower ADL-Treatment Pt needs encouragement to participate in ADLs. Grooming (FIM): 5 (pt was able to brush ther teeth by taking the cap of the toothpase and putting toothpaste on the toothbrush and rinsed her mouth. Pt was in w/c at the sink. Pt brushed hair and applied hand cream on her hands. Pt was able to wash her hands and face while in the shower.) Bathing (FIM): 4 (Pt was able to wash and dry herself except her back and buttocks. Pt used grab bars to assist with her standing. Transfer tub bench and hand held shower. Fair sittting balance while washing her legs and feet. Pt used grab bars to stand w/o assistance while bottom was washed. ) Bathing Location: L Arm, R Arm, L Upper Leg, R Upper Leg, L Lower Leg ( including foot), R Lower Leg (including foot), Chest, Abdomen, Perineal Area Upper Body (FIM): 4 (Pt needed assistance to pull down her blouse on her back side.) Lower Body Dressing (FIM): 3 (Pt needed assistance putting one leg through her brief and pant. Pt was able to pull both brief and pants mid-way. Pt needed assistance putting her socks on and pulling her pants and brief over her buttocks. ) Transfers (B, C, W/C) (FIM): 4 (verbal cues were used for hand placement during transfers. FWW and w/c) Shower Transfer(FIM): 4 (w/c to transfer tub bench and back using grab bars. ) pt transfer to recliner. left up with call light and all needs met. Education OT Patient Education: Modified ADL techniques, Progress toward Goal/Update tx plan, Transfer techniques, Other (Update on patient's functional status shared with her father, with her verbal OK) Teaching Recipient: Patient Teaching Methods: Demonstration, Discussion Response to Teaching: Verbalize Understanding, Return Demonstration, Reinforcement Needed Pt was able to transfer from bed to wheelchair with the use of FWW. Pt demonstrated eye hand coordination, bilateral OT Short Term Goals Short Term Goals Time Frame: 2 weeks Lower Body Dressing(FIM): 4 Toileting(FIM): 4 Transfers (B,C,W/C) (FIM): 5 Toilet/Commode Transfer(FIM): 4 Shower Transfer(FIM): 5 1=Demonstrate adherence to instructed precautions during ADL tasks. 2=Patient will verbalize/demonstrate understanding of assistive devices/ modifications for ADL. 3=Patient will improve strength/tolerance for activity to enable patient to perform ADL's. OT Supervisor Beam Department Goals Usp Goals Time Frame: 4 weeks Eating (FIM): 1 Grooming(FIM): 6 Bathing(FIM): 6 Upper Body Dressing(FIM): 6 Lower Body Dressing(FIM): 5 Toileting(FIM): 5 Transfers (B,C,W/C) (FIM): 5 Toilet/Commode Transfer(FIM): 5 Shower Transfer(FIM): 5 Comprehension(FIM): 6 Expression (FIM): 5 Social Interaction(FIM): 5 Problem Solving(FIM): 5 Memory(FIM): 5 Additional Goals: 2-Verbalize Understanding, 3-ImproveStrength/Enrrique 1=Demonstrate adherence to instructed precautions during ADL tasks. 2=Patient will verbalize/demonstrate understanding of assistive devices/ modifications for ADL. 3=Patient will improve strength/tolerance for activity to enable patient to perform ADL's. OT Education/Plan Problem List/Assessment Pt would benefit from skilled OT to increase her independence in basic self care to allow her to return home safely Discharge Recommendations Plan/Recommendations: Continue POC Treatment Plan/Plan of Care Patient would benefit from OT for education, treatment and training to promote independence in ADL's, mobility, safety and/or upper extremity function for ADL' s. Plan of Care: ADL Retraining, Caregiver Training, Functional Mobility, Orthotic Fitting/Training, UE Funct Exercise/Act, UE Neuromus Re-Ed/Coord Treatment Duration: 4 weeks Visits Per Week: 10-11 Minutes/Day (M-F): 75-90 Minutes/Day (Sat/Maddox): prn Agreement: Yes Rehab Potential: Guarded Time/GCodes Start Time: 08:45 Stop Time: 09:45 Total Time Billed (hr/min): 60 Billed Treatment Time visit, 60 minutes ADL KELLY ATKINS OT Jan 18, 2016 13:56
--- NOTE | 2016-01-18 14:51 | Occupational Ther Daily Note ---
OT Current Status-Daily Note Subjective Pt in room on her bed. Pt stated she needed to go to the bathroom Appearance Alert, pleasant Mental Status/Objective Functional [place] Measure 0=Not Assessed/NA 4=Minimal Assistance 1=Total Assistance 5=Supervision or Setup 2=Maximal Assistance 6=Modified [place] 3=Moderate Assistance 7=Complete [place] ADL-Treatment Toileting (FIM): 1 (Pt unable to assist clothing managment and hygiene. 2 people required to assist with clothing managment and hygiene and standing. FWW , BSC) Toilet/Commode Transfer (FIM): 4 (from bed to BSC, min assist, FWW, verbal cues for hand placement on the bed but not for the BSC) Other Treatment Pt worked with (andree) melba william with beads for hand strengthening as needed for ADLs. Pt was sitting in w/c at end of treatment with call light in hand. Education OT Patient Education: Exercise program Teaching Recipient: Patient OT Short Term Goals Short Term Goals Time Frame: 2 weeks Lower Body Dressing(FIM): 4 Toileting(FIM): 4 Transfers (B,C,W/C) (FIM): 5 Toilet/Commode Transfer(FIM): 4 Shower Transfer(FIM): 5 1=Demonstrate adherence to instructed precautions during ADL tasks. 2=Patient will verbalize/demonstrate understanding of assistive devices/ modifications for ADL. 3=Patient will improve strength/tolerance for activity to enable patient to perform ADL's. OT Dean Of Education Goals Half-Way Goals Time Frame: 4 weeks Eating (FIM): 1 Grooming(FIM): 6 Bathing(FIM): 6 Upper Body Dressing(FIM): 6 Lower Body Dressing(FIM): 5 Toileting(FIM): 5 Transfers (B,C,W/C) (FIM): 5 Toilet/Commode Transfer(FIM): 5 Shower Transfer(FIM): 5 Comprehension(FIM): 6 Expression (FIM): 5 Social Interaction(FIM): 5 Problem Solving(FIM): 5 Memory(FIM): 5 Additional Goals: 2-Verbalize Understanding, 3-ImproveStrength/Enrrique 1=Demonstrate adherence to instructed precautions during ADL tasks. 2=Patient will verbalize/demonstrate understanding of assistive devices/ modifications for ADL. 3=Patient will improve strength/tolerance for activity to enable patient to perform ADL's. OT Education/Plan Problem List/Assessment Pt would benefit from skilled OT to increase her independence in basic self care to allow her to return home safely Discharge Recommendations Plan/Recommendations: Continue POC Treatment Plan/Plan of Care Patient would benefit from OT for education, treatment and training to promote independence in ADL's, mobility, safety and/or upper extremity function for ADL' s. Plan of Care: ADL Retraining, Caregiver Training, Functional Mobility, Orthotic Fitting/Training, UE Funct Exercise/Act, UE Neuromus Re-Ed/Coord Treatment Duration: 4 weeks Visits Per Week: 10-11 Minutes/Day (M-F): 75-90 Minutes/Day (Sat/Maddox): prn Agreement: Yes Rehab Potential: Guarded Time/GCodes Start Time: 13:00 Stop Time: 13:15 Total Time Billed (hr/min): 15 Billed Treatment Time visit 10 min of ADL and 5 min neuromotor KELLY ATKINS OT Jan 18, 2016 14:51
[2016-01-18] MEDS: ENOXAPARIN 40 MG/0.4 ML (LOVENOX) SYR SC SCH (16:17)
[2016-01-18 18:00] VITALS: BP 102/68
[2016-01-18] MEDS ORDERED: DIPHENOXYLATE/ATROPINE 2.5MG/0.025MG (LOMOTIL) TAB JT PRN (19:45)
[2016-01-19] MEDS: RT-ALBUTEROL/IPRATROPIUM 3 ML (DUONEB) VIAL INH SCH ×4 (02:17→19:48)
[2016-01-19 06:11] VITALS: BP 105/66
[2016-01-19] MEDS: METOCLOPRAMIDE 10MG/10ML ORAL SOL(REGLAN) UDC PO SCH ×4 (06:15→20:58)
[2016-01-19] MEDS: LEVOFLOXACIN 750 MG/150 ML IV 150 ML IV SCH (06:42)
[2016-01-19] MEDS: ONDANSETRON 4 MG/2 ML (SDV) Z0FRAN IVP PRN (07:22)
[2016-01-19] MEDS: CATHETER FLUSH 10 ML SYR IV PRN (07:58)
[2016-01-19] MEDS: MAGNESIUM OXIDE (MAG-OX)400 MG TAB JT SCH ×2 (08:37→17:20)
[2016-01-19] MEDS: FAMOTIDINE 20 MG (PEPCID) TABLET JT SCH ×2 (08:37→20:58)
[2016-01-19] MEDS: LACTOBACILLUS Acidoph/Bulgar (LACTINEX/FLORANEX) TAB JT SCH ×4 (08:37→20:58)
[2016-01-19] MEDS: guaiFENesin SYRUP 100 MG/5 ML 10 ML (ROBITUSSIN SF) JT SCH ×4 (08:39→20:58)
[2016-01-19] MEDS: BENEFIBER (FROM DIETARY) DOCUMENTATION PURPOSE ONLY PO SCH ×3 (08:39→21:08)
[2016-01-19] MEDS ORDERED: BENEFIBER (FROM DIETARY) DOCUMENTATION PURPOSE ONLY PO SCH (09:00)
--- NOTE | 2016-01-19 09:05 | Speech Therapy Daily Note ---
Speech Daily Progress Note Subjective The patient was laying in bed, awake upon entrance. The patient was agreeable to ST on this date. Patient again reported nausea, however, stated she was able to complete the daily session. Objective Dysphagia Exercises: The patient demonstrated improvement and accuracy with dysphagia exercises on this date, completing exercises more timely and with additional effort/strength. Additionally, the patient did appear to demonstrate less audible hypopharyngeal secretions. The patient was suctioned by ST prior to initiating the session. Assessment Assessment Current Status: Good Progress Treatment Plan Continue Plan of Care Communication Comprehension: 5 Expression: 5 Social Cognition Social Interaction: 5 Problem Solvin Memory: 5 Speech Short Term Goals Short Term Goals Short Term Goals 1. The patient will independently demonstrate laryngeal, pharyngeal, and base of tongue exercises. Time Frame-STG: Two Weeks Speech Correction Goals Police And Fire Dispatcher Goals 1. The patient will tolerate PO trials of the least restrictive consistency without signs/symptoms of aspiration or laryngeal penetration. Time Frame: Eight Weeks Comprehension: 6 Expression: 5 Social Interaction: 5 Problem Solvin Memory: 5 Speech-Plan Treatment Plan Speech Therapy Treatment Plan: Continue Plan of Care Treatment Duration: 30 # of days/week 4 to 5 Visits Per Week: 4 to 5 Minutes/Day (M-F): 30 Rehab Potential: Guarded Safety Risks/Education Teaching Recipient: Patient Teaching Methods: Demonstration Response to Teaching: Return Demonstration, Reinforcement Needed Education Topics Provided: Dysphagia Exercises Time Speech Therapy Time In: 08:30 Speech Therapy Time Out: 09:00 Total Billed Time: 30 Billed Treatment Time ASAEL Curran GILBERT VORA Jan 19, 2016 09:05
--- NOTE | 2016-01-19 11:20 | PM & R (SOAP) Progress Note ---
Subjective Subjective/Events-last exam Patient was seen in her room this AM.C/O nausea which she relates to med Discussed case with RN-Will schedule Zofran.RN reports that Diarrhea has also returned with Lomotil switched to PRN-Will resume scheduled Lomotil See orders.Patient Min assist for transfers,Discussed case with patients father yesterday,Discussed case with SW yesterday,She will meedt with patients spouse later today re Discharge options.Patient making min gains with theapies at this point-Fatiques easily. Review of Systems General: Fatigue Gastrointestinal: : Nausea Objective Exam Last Set of Vital Signs Vital Signs Date Time Temp Pulse Resp B/P Pulse Ox O2 Delivery O2 Flow Rate FiO2 01/19/16 08:04 Room Air 01/19/16 06:11 99.0 93 16 105/66 94 Capillary Refill : I&O Intake and Output 01/18/16 23:59 Intake Total 1861 ml Output Total 1125 ml Balance 736 ml IV Total 100 ml Tube Feeding 761 ml Other 1000 ml Output Urine Total 1125 ml # Voids 3 # Bowel Movements 1 General: Alert, Oriented X3, Cooperative, No Acute Distress HEENT: Atraumatic, PERRLA, EOMI, Mucous Memb Moist/[place] Neck: Other (Trach functioning) Lungs: Clear to Auscultation Heart: Regular Rate Abdomen: Normal Bowel Sounds, Soft, No Tenderness, Other (feeding tube in place ) Extremities: No Edema Neuro: Other (generalized weakness) Results Lab Laboratory Tests 01/16/16 21:15: Random Gentamicin Level 3.1 01/17/16 05:45: Anion Gap 11, BUN/Creatinine Ratio 16, Blood Urea Nitrogen 9, Calcium Level 8.9 , Carbon Dioxide Level 25, Chloride Level 101, Creatinine 0.56L, Estimat Glomerular Filtration Rate > 60, Glucose Level 133H, Potassium Level 4.1, Sodium Level 137 Microbiology 01/15/16 Gram Stain - Final, Complete 01/15/16 Sputum Culture - Final, Complete Pseudomonas Aeruginosa Klebsiella Pneumoniae Assessment/Plan Assessment S/P crani and removal Met lesion from breast ca Dysphagia NPO on tube feeds S/P trach ontrac collar at night and with PMV during day S/P Radiation Therapy course while on Swing bed anemia s/p transfusion 2 unis PRBCS intermittent nausea felt to be ralted to meds-Zofran scheduled Diarrhea multifactorial Lomotil and Benefiber on Board. Plan Continue PT/OT/ST Appreciate their notes and Specialists notes., SW to f/u re family conference later today with [facility] to discuss Prognosis and POC Oral Thrush treated- Nystatin d/cd earlier this week Next Team Conference later today-See report for full functional update and POC and ELOS The patient does have SNU benefits thru her insurance-this could be a good option once DR Staples has cleared for discharge.. UZMA VILLALOBOS MD Jan 19, 2016 11:19
[2016-01-19] MEDS: ONDANSETRON 4 MG/2 ML (SDV) Z0FRAN IVP SCH ×2 (11:26→17:19)
--- NOTE | 2016-01-19 11:38 | Occupational Ther Daily Note ---
OT Current Status-Daily Note Subjective Pt lying in bed, Pt stated feeling dizzy and nausea Appearance pt looked fatigued Mental Status/Objective Functional [place] Measure 0=Not Assessed/NA 4=Minimal Assistance 1=Total Assistance 5=Supervision or Setup 2=Maximal Assistance 6=Modified [place] 3=Moderate Assistance 7=Complete [place] Other Treatment Pt worked on pinch and grasp by squeezing and pinching (hand) foam for 20 reps on each hand. Thera band (yellow) used for shoulder, elbow, wrist ex times 15-20 reps. Hand gripper used for 15-20 reps. Worked with yellow thera putty for squeezing and pinching. Active ROM with no additional resistance shoulder, elbow 10 reps. Pt left in bed with call light in hand. All needs were met. Education OT Patient Education: Exercise program, Purpose of tx/functional activities Teaching Recipient: Patient Teaching Methods: Demonstration, Discussion Response to Teaching: Verbalize Understanding OT Short Term Goals Short Term Goals Time Frame: 2 weeks Lower Body Dressing(FIM): 4 Toileting(FIM): 4 Transfers (B,C,W/C) (FIM): 5 Toilet/Commode Transfer(FIM): 4 Shower Transfer(FIM): 5 1=Demonstrate adherence to instructed precautions during ADL tasks. 2=Patient will verbalize/demonstrate understanding of assistive devices/ modifications for ADL. 3=Patient will improve strength/tolerance for activity to enable patient to perform ADL's. OT Technical Editor Goals Technical Editor Goals Time Frame: 4 weeks Eating (FIM): 1 Grooming(FIM): 6 Bathing(FIM): 6 Upper Body Dressing(FIM): 6 Lower Body Dressing(FIM): 5 Toileting(FIM): 5 Transfers (B,C,W/C) (FIM): 5 Toilet/Commode Transfer(FIM): 5 Shower Transfer(FIM): 5 Comprehension(FIM): 6 Expression (FIM): 5 Social Interaction(FIM): 5 Problem Solving(FIM): 5 Memory(FIM): 5 Additional Goals: 2-Verbalize Understanding, 3-ImproveStrength/Enrrique 1=Demonstrate adherence to instructed precautions during ADL tasks. 2=Patient will verbalize/demonstrate understanding of assistive devices/ modifications for ADL. 3=Patient will improve strength/tolerance for activity to enable patient to perform ADL's. OT Education/Plan Problem List/Assessment Pt would benefit from skilled OT to increase her independence in basic self care to allow her to return home safely Discharge Recommendations Plan/Recommendations: Continue POC Treatment Plan/Plan of Care Patient would benefit from OT for education, treatment and training to promote independence in ADL's, mobility, safety and/or upper extremity function for ADL' s. Plan of Care: ADL Retraining, Caregiver Training, Functional Mobility, Orthotic Fitting/Training, UE Funct Exercise/Act, UE Neuromus Re-Ed/Coord Treatment Duration: 4 weeks Visits Per Week: 10-11 Minutes/Day (M-F): 75-90 Minutes/Day (Sat/Maddox): prn Agreement: Yes Rehab Potential: Guarded Time/GCodes Start Time: 09:30 Stop Time: 10:15 Total Time Billed (hr/min): 45 Billed Treatment Time visit 45 min ex KELLY ATKINS OT Jan 19, 2016 11:38
--- NOTE | 2016-01-19 11:48 | Physical Therapy Daily Note ---
PT Daily Note-Current Subjective Patient in bed pre tx with basin by her person. She states she is very nauseated and is on the verge of throwing up. Nurse notified of her condition and will be getting some meds soon, patient will perform bed exercises for this morning. Pain Numeric Pain Scale: 0-No Pain Appearance Patient in bed post tx with nurse call, phone, tray, all needs met. Mental Status Patient Orientation: Person, Place, Situation Attachments: PEG Tube Exercises Supine Ex: Ankle pumps, Quad Set, Glut sets, Heel Slides, Short Arc Quads, Straight leg raise, Hip abd/add Supine Reps: 20 Bilateral lower extremity ROM/stretching in all planes, patient has tight glutes bilaterally. Treatments bilateral lower extremity strengthening and ROM/stretching Assessment Current Status: Poor Progress patient too nauseated to get out of bed PT Short Term Goals Short Term Goals Time Frame: Two Weeks Transfers (B,C,W/C) (FIM): 5 Gait (FIM): 1 Distance (FIM): 1=up to 49 ft Gait Distance Comment: 25' Gait Level of Assist: 3 Gait Assistive Device: FWW Wheelchair (FIM): 1 (achieved on 01/13/16) Wheelchair distance (FIM): 1=up to 49 ft Wheelchair Distance: 50 Wheelchair Level of Assist: 4 PT Fdc Goals Fdc Goals Time Frame: 4 wks Transfers (B,C,W/C) (FIM): 5 Gait (FIM): 1 Gait distance (FIM): 1=up to 49 ft Distance: 45' Gait Level of Assist: 4 Gait Assistive Device: FWW Stairs (FIM): 1 # of Steps: 4 Stairs Level Of Assist: 4 PT Plan Problem List Problem List: Activity Tolerance, Functional Strength, Safety, Balance, Gait, Transfer, Bed Mobility, ROM Treatment/Plan Treatment Plan: Continue Plan of Care Treatment Plan: Bed Mobility, Education, Functional Activity Enrrique, Functional Strength, Group Therapy, Gait, Safety, Therapeutic Exercise, Transfers Treatment Duration: 4 wks Visits Per Week: 10-11 Minutes/Day (M-F): 60-90 Minutes/Day (Sat/Maddox): PRN Safety Risks/Education Patient Education: Correct Positioning, Disease Process, Safety Issues Teaching Recipient: Patient Teaching Methods: Demonstration, Discussion Response to Teaching: Reinforcement Needed Time/GCodes Time In: 1100 Time Out: 1145 Total Billed Treatment Time: 45 Total Billed Treatment 1 visit EX 45 min JUAN SMITH PT Jan 19, 2016 11:48
[2016-01-19] MEDS: aCETylcysteine 20% (MUCOMYST) 30ML SOLN VIAL INH SCH ×3 (14:43→19:48)
--- NOTE | 2016-01-19 15:04 | Therapy Group Daily Note ---
Therapy Daily Group Note Patient Education Topic Home Safety, Fall Prevention, Exercises Exercises LE Seated Exercise, UE Exercise Other/Notes Pt was wheeled to PT/OT Group using W/C. Pt participated in group which included Introductions (Name, Where you are from and Most Exciting Experience in your Life), Socialization to answer questions and give input, Problem Solving for [place], Critical Thinking and Memory for [place]and Name that Tune and UE & LE Seated Exercises. Pt actively participated in completing Exercises and recalling Names of Real Matters Songs. After finishing group, pt wheeled back to room using W/C. Pt transferred back to bed using SPT from W/C at Mod A. Start Time: 13:00 Stop Time: 14:00 Total Billed Treatment Time: 60 Total Billed Treatment 1,GRP LUISA DASILVA PTA Jan 19, 2016 15:03
--- NOTE | 2016-01-19 15:18 | Progress Note (SOAP) ---
Subjective Subjective/Events-last exam Reports nausea after receiving antibiotics. Fatigue persists. Objective Exam Vital Signs Date Time Temp Pulse Resp B/P Pulse Ox O2 Delivery O2 Flow Rate FiO2 01/19/16 14:55 94 Room Air 01/19/16 08:04 Room Air 01/19/16 08:00 95 Room Air 01/19/16 06:11 99.0 93 16 105/66 94 Room Air 01/19/16 02:17 91 Room Air 01/18/16 20:50 92 Room Air 01/18/16 20:22 Room Air 01/18/16 18:00 97.0 86 20 102/68 92 Room Air I & O 01/19/16 07:00 Intake Total 2057 ml Output Total 1150 ml Balance 907 ml Capillary Refill : General Appearance: Chronically ill HEENT: PERRL/EOMI Neck: Supple Other (tracheostomy in place) Respiratory: Crackles Gastrointestinal: normal bowel sounds non tender soft other (JPEG in place;) Results Lab Microbiology 01/15/16 Gram Stain - Final, Complete 01/15/16 Sputum Culture - Final, Complete Pseudomonas Aeruginosa Klebsiella Pneumoniae Assessment/Plan Assessment/Plan Assess & Plan/Chief Complaint 1. Recurrent Pseudomonas pneumonia--bilateral upper lobes--patient is receiving IV cefepime and IV levofloxacin which should be continued for a minimum of 14 days. 2. Symptomatic anemia-check iron studies, vitamin B-12, folate and transfuse 2 units packed RBCs. 3. History of brain metastasis, status post resection at [facility] October 2015--Whole brain radiation completed on 01/04/16; a. Decadron has been tapered off. 4. Right breast cancer-infiltrating mammary cancer T2 N3b M0, Stage IIIC poorly differentiated high-grade ER 40 percent , NE negative Ki-67, 20 percent HER-2/linda 3+ positive, luminal B subtype; adjuvant chemotherapy, radiation and 1 year of trastuzumab completed on 09/14/15. a. Faslodex 500mg day 1 has been given on 12/22/15; b. Faslodex 500 mg day 15 given on 01/05/16 and next dose is due 01/19/16; 5. Vocal cord paralysis/dysphagia--patient has JPEG for tube feeding. a. Barium swallow done 01/04/16 positive for aspiration; 6. Debility--patient is receiving PT and OT to optimize functional status however PT staff relates that patient does not always cooperate with the regimen because of fatigue. Diagnosis/Problems: Clinical Quality Measures DVT/VTE Risk/Contraindication: Risk Factor Score Per Nursin RFS Level Per Nursing on Admit: 4+=Very High ONESIMO HUFFMAN MD Jan 19, 2016 15:18
[2016-01-19] MEDS: ONDANSETRON 4 MG (ZOFRAN) ORAL DISSOLVE TAB PO SCH ×2 (17:15→17:40)
[2016-01-19] MEDS: ENOXAPARIN 40 MG/0.4 ML (LOVENOX) SYR SC SCH (17:17)
[2016-01-19 17:25] VITALS: BP 103/68
[2016-01-19] MEDS: DIPHENOXYLATE/ATROPINE 2.5MG/0.025MG (LOMOTIL) TAB JT SCH (20:58)
[2016-01-19] MEDS: APAP 325 MG/10.15 ML LIQ (TYLENOL) UDC JT PRN (20:58)
[2016-01-20] MEDS: ONDANSETRON 4 MG/2 ML (SDV) Z0FRAN IVP SCH ×4 (00:28→17:10)
[2016-01-20] MEDS: CATHETER FLUSH 10 ML SYR IV PRN ×3 (00:29→06:33)
[2016-01-20] MEDS: RT-ALBUTEROL/IPRATROPIUM 3 ML (DUONEB) VIAL INH SCH ×4 (02:34→22:41)
[2016-01-20] MEDS: METOCLOPRAMIDE 10MG/10ML ORAL SOL(REGLAN) UDC PO SCH ×4 (05:39→21:46)
[2016-01-20 05:54] VITALS: BP 105/64
[2016-01-20] MEDS: APAP 325 MG/10.15 ML LIQ (TYLENOL) UDC JT PRN ×3 (06:11→21:48)
[2016-01-20] MEDS: LEVOFLOXACIN 750 MG/150 ML IV 150 ML IV SCH (06:33)
--- NOTE | 2016-01-20 08:36 | Pulmonary Progress Note ---
Subjective Subjective/Events-last exam pt c/o of nausea Exam Exam Vital Signs Date Time Temp Pulse Resp B/P Pulse Ox O2 Delivery O2 Flow Rate FiO2 01/20/16 05:54 98.1 85 16 105/64 97 Room Air 01/19/16 20:35 92 Room Air 01/19/16 19:49 95 Room Air 01/19/16 17:25 98.1 87 18 103/68 92 Room Air 01/19/16 14:55 94 Room Air I & O 01/20/16 07:00 Intake Total 2309 ml Output Total 1050 ml Balance 1259 ml General Appearance: Chronically ill HEENT: PERRL/EOMI Neck: Supple Other (tracheostomy in place) Respiratory: Crackles Cardiovascular: Regular Rate, Rhythm No Edema No Gallop No JVD Gastrointestinal: normal bowel sounds non tender soft other (JPEG in place;) Extremity: Non Tender No Pedal Edema Neurologic/Psychiatric: Alert Motor Weakness Skin: Normal Color Warm/Dry Lymphatic: No Adenopathy Assessment/Plan Assessment/Plan Metastatic breast CA to posterior brain s/p crani and resection OSH S/p mechanical ventilation for respiratory failure and vocal cord paralysis s/p tracheostomy -Cap trach during day -SVNs -Suction PRN s/p Pseudomonus pneumonia - Continue IV Levaquin X 14 days Clinical Quality Measures DVT/VTE Risk/Contraindication: Risk Factor Score Per Nursin RFS Level Per Nursing on Admit: 4+=Very High CAROLYN CRAWFORD DO Jan 20, 2016 08:36
--- NOTE | 2016-01-20 09:01 | Speech Therapy Daily Note ---
Speech Daily Progress Note Subjective The patient was laying in bed, awake upon entrance. The patient greeted the clinician appropriately and agreed to participate in the dysphagia session. The patient requested to be suctioned prior to treatment. The patient was positioned upright for suctioning. Once suctioning began, the patient became nauseated and vomited material consistent with tube feeding. The material was visualized from the tracheostomy site, as well. The patient was cleaned by the clinician as respiratory arrived. Respiratory agreed to continue cleaning and suctioning the patient's airway. The patient's RN was contacted and informed. Objective Dysphagia Exercises: Due to nausea, the patient completed vocal exercises on this date. The patient demonstrate fair accuracy with exercises, however, demonstrated increased fatigue. Oral Care: The patient was provided extensive oral care by the clinician prior to the close of the session. Assessment Assessment Current Status: Fair Progress Treatment Plan Continue Plan of Care Communication Comprehension: 5 Expression: 5 Social Cognition Social Interaction: 5 Problem Solvin Memory: 5 Speech Short Term Goals Short Term Goals Short Term Goals 1. The patient will independently demonstrate laryngeal, pharyngeal, and base of tongue exercises. Time Frame-STG: Two Weeks Speech [facility] Goals Pipe Fitter Supervisor Maintenance Goals 1. The patient will tolerate PO trials of the least restrictive consistency without signs/symptoms of aspiration or laryngeal penetration. Time Frame: Eight Weeks Comprehension: 6 Expression: 5 Social Interaction: 5 Problem Solvin Memory: 5 Speech-Plan Treatment Plan Speech Therapy Treatment Plan: Continue Plan of Care Treatment Duration: 30 # of days/week 4 to 5 Visits Per Week: 4 to 5 Minutes/Day (M-F): 30 Rehab Potential: Guarded Safety Risks/Education Teaching Recipient: Patient Teaching Methods: Demonstration, Discussion Response to Teaching: Return Demonstration, Reinforcement Needed Education Topics Provided: Dysphagia Exercises Time Speech Therapy Time In: 08:30 Speech Therapy Time Out: 09:00 Total Billed Time: 30 Billed Treatment Time ASAEL Curran ELIZABEFER FLOREZ Jan 20, 2016 09:01
[2016-01-20] MEDS: aCETylcysteine 20% (MUCOMYST) 30ML SOLN VIAL INH SCH ×2 (09:06→22:41)
--- NOTE | 2016-01-20 09:44 | PM & R (SOAP) Progress Note ---
Subjective Subjective/Events-last exam Patient was seen in her room this AM Discussed case with RN Patient still with some degree of nausea,Zofran now scheduled Appreciate Dr verduzco and Bala notes Discussed case with DR Mathias yesterday who attended family conference yesterday.-She felt it went fairly well.Patient Min assist for transfers Objective Exam Last Set of Vital Signs Vital Signs Date Time Temp Pulse Resp B/P Pulse Ox O2 Delivery O2 Flow Rate FiO2 01/20/16 09:06 89 Room Air 01/20/16 05:54 98.1 85 16 105/64 Capillary Refill : I&O Intake and Output 01/20/16 00:00 Intake Total 2370 ml Output Total 1300 ml Balance 1070 ml Intake Oral 0 ml IV Total 150 ml Tube Feeding 1320 ml Other 900 ml Output Urine Total 1300 ml # Voids 5 # Urine Diapers 1 # Bowel Movements 3 General: Alert, Oriented X3, Cooperative, No Acute Distress HEENT: Atraumatic, PERRLA, EOMI, Mucous Memb Moist/[place] Neck: Other (Trach functioning) Lungs: Clear to Auscultation Heart: Regular Rate Abdomen: Normal Bowel Sounds, Soft, No Tenderness, Other (feeding tube in place ) Extremities: No Edema Neuro: Other (generalized weakness) Results Lab Microbiology 01/15/16 Gram Stain - Final, Complete 01/15/16 Sputum Culture - Final, Complete Pseudomonas Aeruginosa Klebsiella Pneumoniae Assessment/Plan Assessment S/P crani and removal Met lesion from breast ca Dysphagia NPO on tube feeds S/P trach on trac collar at night and with PMV during day S/P Radiation Therapy course while on Swing bed anemia s/p transfusion 2 unis PRBCS intermittent nausea felt to be ralted to meds-Freddie scheduled Diarrhea multifactorial Lomotil and Benefiber on Board-improving Recuurent pneumonia due to Vocal cord paralysis and sectretions to complete course of IV antibiotics Plan Continue PT/OT/ST Appreciate their notes and Specialists notes., Oral Thrush treated- Nystatin d/cd earlier this week Team Conference held yesterday-See report for full functional update and POC and ELOS The patient does have SNU benefits thru her insurance-this could be a good option once DR Staples has cleared for discharge Discharge now set tentatively for late next week-Will f/u with sw re details.. UZMA VILLALOBOS MD Jan 20, 2016 09:43
[2016-01-20] MEDS: DIPHENOXYLATE/ATROPINE 2.5MG/0.025MG (LOMOTIL) TAB JT SCH ×2 (09:47→21:46)
[2016-01-20] MEDS: LACTOBACILLUS Acidoph/Bulgar (LACTINEX/FLORANEX) TAB JT SCH ×4 (09:47→21:46)
[2016-01-20] MEDS: guaiFENesin SYRUP 100 MG/5 ML 10 ML (ROBITUSSIN SF) JT SCH ×4 (09:48→21:48)
[2016-01-20] MEDS: MAGNESIUM OXIDE (MAG-OX)400 MG TAB JT SCH ×2 (09:48→17:10)
[2016-01-20] MEDS: FAMOTIDINE 20 MG (PEPCID) TABLET JT SCH ×2 (09:48→21:46)
[2016-01-20] MEDS: BENEFIBER (FROM DIETARY) DOCUMENTATION PURPOSE ONLY PO SCH ×3 (09:49→21:00)
--- NOTE | 2016-01-20 11:18 | Occupational Ther Daily Note ---
OT Current Status-Daily Note Subjective Pt lying in bed and stated she was throwing up earlier Appearance alert and agreeable to OT Mental Status/Objective Functional [place] Measure 0=Not Assessed/NA 4=Minimal Assistance 1=Total Assistance 5=Supervision or Setup 2=Maximal Assistance 6=Modified [place] 3=Moderate Assistance 7=Complete [place] ADL-Treatment Pt was able to go from supine to sit EOB with CGA. Pt required min A to transfer from bed to w/c with verbal cue for hand placement. Pt then transferred from w/c to shower with min A using shower chair. Pt was able to sit with supervision then completed bathing except buttocks after set up. No LOB noted. Pt assisted with donning shirt, had difficulty with raising UE's to place shirt over head. Pt was able to assist with lower body dressing, stood with assist then attempted to hike pants over hips. Pt left in care PT. Bathing (FIM): 4 Bathing Location: L Arm, R Arm, L Upper Leg, R Upper Leg, L Lower Leg ( including foot), R Lower Leg (including foot), Chest, Abdomen, Perineal Area Transfers (B, C, W/C) (FIM): 4 Shower Transfer(FIM): 4 Education OT Patient Education: Safety issues, Transfer techniques Teaching Recipient: Patient Teaching Methods: Demonstration, Discussion Response to Teaching: Verbalize Understanding, Reinforcement Needed OT Short Term Goals Short Term Goals Time Frame: 2 weeks Lower Body Dressing(FIM): 4 Toileting(FIM): 4 Transfers (B,C,W/C) (FIM): 5 Toilet/Commode Transfer(FIM): 4 Shower Transfer(FIM): 5 1=Demonstrate adherence to instructed precautions during ADL tasks. 2=Patient will verbalize/demonstrate understanding of assistive devices/ modifications for ADL. 3=Patient will improve strength/tolerance for activity to enable patient to perform ADL's. OT Intermediate Goals Intermediate Goals Time Frame: 4 weeks Eating (FIM): 1 Grooming(FIM): 6 Bathing(FIM): 6 Upper Body Dressing(FIM): 6 Lower Body Dressing(FIM): 5 Toileting(FIM): 5 Transfers (B,C,W/C) (FIM): 5 Toilet/Commode Transfer(FIM): 5 Shower Transfer(FIM): 5 Comprehension(FIM): 6 Expression (FIM): 5 Social Interaction(FIM): 5 Problem Solving(FIM): 5 Memory(FIM): 5 Additional Goals: 2-Verbalize Understanding, 3-ImproveStrength/Enrrique 1=Demonstrate adherence to instructed precautions during ADL tasks. 2=Patient will verbalize/demonstrate understanding of assistive devices/ modifications for ADL. 3=Patient will improve strength/tolerance for activity to enable patient to perform ADL's. OT Education/Plan Problem List/Assessment Pt would benefit from skilled OT to increase her independence in basic self care to allow her to return home safely Discharge Recommendations Plan/Recommendations: Continue POC Treatment Plan/Plan of Care Patient would benefit from OT for education, treatment and training to promote independence in ADL's, mobility, safety and/or upper extremity function for ADL' s. Plan of Care: ADL Retraining, Caregiver Training, Functional Mobility, Orthotic Fitting/Training, UE Funct Exercise/Act, UE Neuromus Re-Ed/Coord Treatment Duration: 4 weeks Visits Per Week: 10-11 Minutes/Day (M-F): 75-90 Minutes/Day (Sat/Maddox): prn Agreement: Yes Rehab Potential: Guarded Time/GCodes Start Time: 10:00 Stop Time: 10:45 Total Time Billed (hr/min): 45 Billed Treatment Time 1 visit-ADL 3 (45 min) HUMBERTO LUNA Jan 20, 2016 11:18
--- NOTE | 2016-01-20 13:54 | Physical Therapy Daily Note ---
PT Daily Note-Current Subjective Agrees to PT. Pt had just finished with OT when PT entered. Pt up in wheelchair. "I didn't do much yesterday, so I'm trying to work really hard today." Pain Numeric Pain Scale: 0-No Pain Location: No Pain Reported Comment: Pt reports nausea earlier in the day but denies at this time. Mental Status Patient Orientation: Person, Place, Time, Situation Transfers Transfers (B, C, W/C) (FIM): 4 Scootin (skilled cues to sequence and encouragement to do as much as she could. Pt pushed with feet and min asssit at bed pad by this therapist) Supine to/from Sit: 4 (light assist with right leg) Sit to/from Stand: 4 (min-CGA; reminders for hand placement. ) Bed to/from Chair: 4 (FWW ) Worked on sit to stand x 3 with FWW; SPT x 1 with FWW with min assist. Gait Training Walked forward 7 ft and turned to return 7 ft in // bars with min - CGA x 3 reps ; 2 LOB episodes with mod assist to recover. Pt able to advance feet evenly with some noted decreased coordination right greater than the left. Wheelchair Training Wheelchair (FIM): 5 Wheelchair Distance: 3=150 ft wheelchair mobility on tile surface 150 ft with SBA; worked on mobility on flat carpet in small space to simulate carpet texture also turns and small area like in a home; pt able to propel with hands and feet 30 ft with 2 turns on flat carpet with SBA. Neuromuscular Static standing balance with practice of holding walker with right hand and then the left; performed static stance 3 reps of at least 1 minute each. Attempted to release both hands to work on pulling pants down, but needed assist for this. Worked on finding center of gravity for unsupported stance. Treatments Functional mobility training with gait and transfers and balance act and wheelchair mobility all to promote optimal mobility in her home. Assessment Current Status: Good Progress More alert today and very participatory. Pt seemed brighter and did not need as much encouragement to participate with therapy. Improved mobility in the // bars and with wheelchair. PT Short Term Goals Short Term Goals Time Frame: Two Weeks Transfers (B,C,W/C) (FIM): 5 Gait (FIM): 1 Distance (FIM): 1=up to 49 ft Gait Distance Comment: 25' Gait Level of Assist: 3 Gait Assistive Device: FWW Wheelchair (FIM): 1 (achieved on 01/13/16) Wheelchair distance (FIM): 1=up to 49 ft Wheelchair Distance: 50 Wheelchair Level of Assist: 4 PT Hot Stick Worker Goals Intermediate Goals Time Frame: 4 wks Transfers (B,C,W/C) (FIM): 5 Gait (FIM): 1 Gait distance (FIM): 1=up to 49 ft Distance: 45' Gait Level of Assist: 4 Gait Assistive Device: FWW Stairs (FIM): 1 # of Steps: 4 Stairs Level Of Assist: 4 PT Plan Problem List Problem List: Activity Tolerance, Functional Strength, Safety, Balance, Gait, Transfer, Bed Mobility Treatment/Plan Treatment Plan: Continue Plan of Care Treatment Plan: Bed Mobility, Education, Functional Activity Enrrique, Functional Strength, Group Therapy, Gait, Safety, Therapeutic Exercise, Transfers Treatment Duration: 4 wks Visits Per Week: 10-11 Minutes/Day (M-F): 60-90 Minutes/Day (Sat/Maddox): PRN Safety Risks/Education Patient Education: Transfer Techniques, Safety Issues Teaching Recipient: Patient Teaching Methods: Discussion Response to Teaching: Reinforcement Needed Time/GCodes Time In: 1045 Time Out: 1130 Total Billed Treatment Time: 45 Total Billed Treatment visit FA 30 WC 15 HUMBERTO AQUINO PT Jan 20, 2016 13:54
--- NOTE | 2016-01-20 14:07 | Progress Note (SOAP) ---
Subjective Subjective/Events-last exam No new complaints. Nausea persist. Cough is stronger and states she can now sometimes clear her own secretions. Objective Exam Vital Signs Date Time Temp Pulse Resp B/P Pulse Ox O2 Delivery O2 Flow Rate FiO2 01/20/16 09:06 89 Room Air 01/20/16 08:00 92 Room Air 01/20/16 05:54 98.1 85 16 105/64 97 Room Air 01/19/16 20:35 92 Room Air 01/19/16 19:49 95 Room Air 01/19/16 17:25 98.1 87 18 103/68 92 Room Air 01/19/16 14:55 94 Room Air I & O 01/20/16 07:00 Intake Total 2309 ml Output Total 1050 ml Balance 1259 ml Capillary Refill : General Appearance: Chronically ill HEENT: PERRL/EOMI Neck: Other (tracheostomy tube in place) Respiratory: Crackles Cardiovascular: Regular Rate, Rhythm No Edema Gastrointestinal: normal bowel sounds non tender other (JPEG tube in place with triple lumen) Neurologic/Psychiatric: Alert Oriented x3 Motor Weakness Results Lab Microbiology 01/15/16 Gram Stain - Final, Complete 01/15/16 Sputum Culture - Final, Complete Pseudomonas Aeruginosa Klebsiella Pneumoniae Assessment/Plan Assessment/Plan Assess & Plan/Chief Complaint 1. Recurrent Pseudomonas pneumonia--bilateral upper lobes--patient is receiving IV cefepime and IV levofloxacin which should be continued for a minimum of 14 days. 2. Symptomatic anemia-check iron studies, vitamin B-12, folate and transfuse 2 units packed RBCs. 3. History of brain metastasis, status post resection at [facility] October 2015--Whole brain radiation completed on 01/04/16; a. Decadron has been tapered off. 4. Right breast cancer-infiltrating mammary cancer T2 N3b M0, Stage IIIC poorly differentiated high-grade ER 40 percent , MS negative Ki-67, 20 percent HER-2/linda 3+ positive, luminal B subtype; adjuvant chemotherapy, radiation and 1 year of trastuzumab completed on 09/14/15. a. Faslodex 500mg day 1 has been given on 12/22/15; b. Faslodex 500 mg day 15 given on 01/05/16 and day 29 (+1) was given today 01/20/16; Next dose due in 4 weeks; 5. Vocal cord paralysis/dysphagia--patient has JPEG for tube feeding and gastroscopy lumen is being used; a. Barium swallow done 01/04/16 positive for aspiration; b. Dr Mathias/Dr Muro to arrange possible replacement of feeding tube; 6. Debility--patient is receiving PT and OT to optimize functional status Diagnosis/Problems: Clinical Quality Measures DVT/VTE Risk/Contraindication: Risk Factor Score Per Nursin RFS Level Per Nursing on Admit: 4+=Very High ONESIMO HUFFMAN MD Jan 20, 2016 14:07
--- NOTE | 2016-01-20 14:16 | Therapy Group Daily Note ---
Therapy Daily Group Note Patient Education Topic Exercises, Other List Below Exercises ROM, UE Exercise Other/Notes Pt. participated in group activity this date. Began session with naming name, and something made from snow. Pt. then participated in education regarding illness/disease prevention, stroke prevention, and Armand trivia for socialization. Pt. able to participate well and engaged in activity. Pt. taken back to room after treatment and all needs met. Start Time: 13:00 Stop Time: 14:00 Total Billed Treatment Time: 60 Total Billed Treatment 1, GRP This note is from January 16. GUILLERMO MIGUEL OT Jan 20, 2016 14:16
--- NOTE | 2016-01-20 14:21 | Occupational Ther Daily Note ---
OT Current Status-Daily Note Subjective Pt lying in bed Appearance alert and agreeable to OT Mental Status/Objective Functional [place] Measure 0=Not Assessed/NA 4=Minimal Assistance 1=Total Assistance 5=Supervision or Setup 2=Maximal Assistance 6=Modified [place] 3=Moderate Assistance 7=Complete [place] ADL-Treatment Pt transferred from bed to w/c with FWW for balance, verbal cues needed for arm placement Other Treatment Pt worked on fine motor activities to increase strength and dexterity for functional daily tasks, resistive clothes pins, theraputty, matching color pegs , nagel translation. Pt was able to complete resistive exercise to increase digit flexion strength. Education Teaching Recipient: Patient Teaching Methods: Discussion Response to Teaching: Verbalize Understanding OT Short Term Goals Short Term Goals Time Frame: 2 weeks Lower Body Dressing(FIM): 4 Toileting(FIM): 4 Transfers (B,C,W/C) (FIM): 5 Toilet/Commode Transfer(FIM): 4 Shower Transfer(FIM): 5 1=Demonstrate adherence to instructed precautions during ADL tasks. 2=Patient will verbalize/demonstrate understanding of assistive devices/ modifications for ADL. 3=Patient will improve strength/tolerance for activity to enable patient to perform ADL's. OT Oil And Gas Superintendent Goals [facility] Goals Time Frame: 4 weeks Eating (FIM): 1 Grooming(FIM): 6 Bathing(FIM): 6 Upper Body Dressing(FIM): 6 Lower Body Dressing(FIM): 5 Toileting(FIM): 5 Transfers (B,C,W/C) (FIM): 5 Toilet/Commode Transfer(FIM): 5 Shower Transfer(FIM): 5 Comprehension(FIM): 6 Expression (FIM): 5 Social Interaction(FIM): 5 Problem Solving(FIM): 5 Memory(FIM): 5 Additional Goals: 2-Verbalize Understanding, 3-ImproveStrength/Enrrique 1=Demonstrate adherence to instructed precautions during ADL tasks. 2=Patient will verbalize/demonstrate understanding of assistive devices/ modifications for ADL. 3=Patient will improve strength/tolerance for activity to enable patient to perform ADL's. OT Education/Plan Problem List/Assessment Pt would benefit from skilled OT to increase her independence in basic self care to allow her to return home safely Discharge Recommendations Plan/Recommendations: Continue POC Treatment Plan/Plan of Care Patient would benefit from OT for education, treatment and training to promote independence in ADL's, mobility, safety and/or upper extremity function for ADL' s. Plan of Care: ADL Retraining, Caregiver Training, Functional Mobility, Orthotic Fitting/Training, UE Funct Exercise/Act, UE Neuromus Re-Ed/Coord Treatment Duration: 4 weeks Visits Per Week: 10-11 Minutes/Day (M-F): 75-90 Minutes/Day (Sat/Maddox): prn Agreement: Yes Rehab Potential: Guarded Time/GCodes Start Time: 13:30 Stop Time: 14:00 Total Time Billed (hr/min): 30 Billed Treatment Time visit EX 2 (30 min) HUMBERTO LUNA Jan 20, 2016 14:21
--- NOTE | 2016-01-20 16:03 | Physical Therapy Daily Note ---
PT Daily Note-Current Subjective Pt agreeable. Pt up in wheelchair completing OT when session initiated. Mental Status Patient Orientation: Person, Place, Time, Situation Transfers Pt performed a SPT x 3 with FWW with min assist for all 3. On/off nu step with min assist. Pt transferred sit to supine with SBA but needs mod assist to scoot up in bed. Scooting difficult due to friction of clothing on sheets and weakened core muscles. Exercises NuStep Minutes: 8 Assessment Pt tolerated treatment well and continues to seem more bright today. Spend time discussing the importance of increasing her indep as much as possible to make it easier for her caregivers. PT Short Term Goals Short Term Goals Time Frame: Two Weeks Transfers (B,C,W/C) (FIM): 5 Gait (FIM): 1 Distance (FIM): 1=up to 49 ft Gait Distance Comment: 25' Gait Level of Assist: 3 Gait Assistive Device: FWW Wheelchair (FIM): 1 (achieved on 01/13/16) Wheelchair distance (FIM): 1=up to 49 ft Wheelchair Distance: 50 Wheelchair Level of Assist: 4 PT [facility] Goals Acute Care Nurse Practitioner Goals Time Frame: 4 wks Transfers (B,C,W/C) (FIM): 5 Gait (FIM): 1 Gait distance (FIM): 1=up to 49 ft Distance: 45' Gait Level of Assist: 4 Gait Assistive Device: FWW Stairs (FIM): 1 # of Steps: 4 Stairs Level Of Assist: 4 PT Plan Problem List Problem List: Activity Tolerance, Functional Strength, Safety, Balance, Gait, Transfer, Bed Mobility Treatment/Plan Treatment Plan: Continue Plan of Care Treatment Plan: Bed Mobility, Education, Functional Activity Enrrique, Functional Strength, Group Therapy, Gait, Safety, Therapeutic Exercise, Transfers Treatment Duration: 4 wks Visits Per Week: 10-11 Minutes/Day (M-F): 60-90 Minutes/Day (Sat/Maddox): PRN Safety Risks/Education Patient Education: Transfer Techniques Teaching Recipient: Patient Teaching Methods: Discussion Response to Teaching: Reinforcement Needed Time/GCodes Time In: 1400 Time Out: 1430 Total Billed Treatment Time: 30 Total Billed Treatment visit EX 10 FA 20 HUMBERTO AQUINO PT Jan 20, 2016 16:03
[2016-01-20] MEDS: ENOXAPARIN 40 MG/0.4 ML (LOVENOX) SYR SC SCH (16:18)
[2016-01-20 18:12] VITALS: BP 103/67
[2016-01-21] MEDS: ONDANSETRON 4 MG/2 ML (SDV) Z0FRAN IVP SCH ×4 (00:26→17:27)
[2016-01-21] MEDS: RT-ALBUTEROL/IPRATROPIUM 3 ML (DUONEB) VIAL INH SCH ×4 (03:07→20:06)
[2016-01-21 06:00] VITALS: BP 114/75
[2016-01-21] MEDS: METOCLOPRAMIDE 10MG/10ML ORAL SOL(REGLAN) UDC PO SCH ×4 (06:25→21:22)
[2016-01-21] MEDS: LEVOFLOXACIN 750 MG/150 ML IV 150 ML IV SCH (06:25)
[2016-01-21 06:34] LABS: BASOPHILS % (AUTO) 0 % (0-10); EOSINOPHILS % (AUTO) 0 % (0-10); LYMPHOCYTES % (AUTO) 14 % (12-44); MEAN CORPUSCULAR HEMOGLOBIN 29 PG (25-34); MEAN CORPUSCULAR HGB CONC 32 G/DL (32-36); MEAN CORPUSCULAR VOLUME 93 FL (80-99); MEAN PLATELET VOLUME 8.5 FL (7.4-10.4); MONOCYTES % (AUTO) 14 % (0-12); NEUTROPHILS % (AUTO) 72 % (42-75); PLATELET COUNT 259 10^3/uL (130-400); RED BLOOD COUNT 3.47 10^6/uL (4.35-5.85)
[2016-01-21 07:13] LABS: ALANINE AMINOTRANSFERASE 19 U/L (0-55); ALBUMIN 3.2 G/DL (3.2-4.5); ANION GAP 11 MMOL/L (5-14); ASPARTATE AMINO TRANSFERASE 18 U/L (5-34); BILIRUBIN,TOTAL 0.2 MG/DL (0.1-1.0); BLOOD UREA NITROGEN 8 MG/DL (7-18); BUN/CREATININE RATIO 16; CALCIUM 9.2 MG/DL (8.5-10.1); CARBON DIOXIDE 25 MMOL/L (21-32); CHLORIDE 102 MMOL/L (98-107); CREATININE SERUM 0.51 MG/DL (0.60-1.30); GFR ESTIMATED > 60; GLUCOSE 121 MG/DL (70-105); POTASSIUM 3.8 MMOL/L (3.6-5.0); SODIUM 138 MMOL/L (135-145); TOTAL PROTEIN 6.2 G/DL (6.4-8.2)
--- NOTE | 2016-01-21 07:48 | Pulmonary Progress Note ---
Subjective Subjective/Events-last exam Pt is complaining of nausea. Exam Exam Vital Signs Date Time Temp Pulse Resp B/P Pulse Ox O2 Delivery O2 Flow Rate FiO2 01/21/16 06:00 97.6 104 18 114/75 96 Room Air 01/21/16 03:07 95 Room Air 01/20/16 22:40 95 Room Air 01/20/16 20:00 Room Air 01/20/16 18:12 98.2 100 18 103/67 97 Room Air 01/20/16 16:07 90 Room Air 21 01/20/16 09:06 89 Room Air 01/20/16 08:00 92 Room Air I & O 01/21/16 07:00 Intake Total 2355 ml Output Total 550 ml Balance 1805 ml General Appearance: Chronically ill HEENT: PERRL/EOMI Neck: Supple Other (tracheostomy in place) Respiratory: Crackles Cardiovascular: Regular Rate, Rhythm No Edema No Gallop No JVD Gastrointestinal: normal bowel sounds non tender soft other (JPEG in place;) Extremity: Non Tender No Pedal Edema Neurologic/Psychiatric: Alert Motor Weakness Skin: Normal Color Warm/Dry Lymphatic: No Adenopathy Results Lab Laboratory Tests 01/21/16 06:20 Assessment/Plan Assessment/Plan Metastatic breast CA to posterior brain s/p crani and resection OSH S/p mechanical ventilation for respiratory failure and vocal cord paralysis s/p tracheostomy -Cap trach during day -SVNs -Suction PRN s/p Pseudomonus pneumonia - Continue IV Levaquin X 14 days Nausea -probably secondary to TF -Have dietary evaluate TF Clinical Quality Measures DVT/VTE Risk/Contraindication: Risk Factor Score Per Nursin RFS Level Per Nursing on Admit: 4+=Very High CAROLYN CRAWFORD DO Jan 21, 2016 07:48
[2016-01-21] MEDS: aCETylcysteine 20% (MUCOMYST) 30ML SOLN VIAL INH SCH ×2 (08:00→20:19)
--- NOTE | 2016-01-21 08:42 | PM & R (SOAP) Progress Note ---
Subjective Subjective/Events-last exam Patient was seen in her room this AM Patient with persistent nausea but transfers improving To have Day pass this Objective Exam Last Set of Vital Signs Vital Signs Date Time Temp Pulse Resp B/P Pulse Ox O2 Delivery O2 Flow Rate FiO2 01/21/16 06:00 97.6 104 18 114/75 96 Room Air 01/20/16 16:07 21 Capillary Refill : I&O Intake and Output 01/21/16 00:00 Intake Total 2419 ml Output Total 650 ml Balance 1769 ml Intake Oral 0 ml Tube Feeding 1359 ml Other 1060 ml Output Urine Total 650 ml # Voids 3 # Bowel Movements 2 General: Alert, Oriented X3, Cooperative, No Acute Distress HEENT: Atraumatic, PERRLA, EOMI, Mucous Memb Moist/[place] Neck: Other (Trach functioning) Lungs: Clear to Auscultation Heart: Regular Rate Abdomen: Normal Bowel Sounds, Soft, No Tenderness, Other (feeding tube in place ) Extremities: No Edema Neuro: Other (generalized weakness) Results Lab Laboratory Tests 01/21/16 06:20: Alanine Aminotransferase (ALT/SGPT) 19, Albumin 3.2, Alkaline Phosphatase 90, Anion Gap 11, Aspartate Amino Transf (AST/SGOT) 18, BUN/Creatinine Ratio 16, Basophils # (Auto) 0.0, Basophils (%) (Auto) 0, Blood Urea Nitrogen 8, Calcium Level 9.2, Carbon Dioxide Level 25, Chloride Level 102, Creatinine 0.51L, Eosinophils # (Auto) 0.0, Eosinophils (%) (Auto) 0, Estimat Glomerular Filtration Rate > 60, Glucose Level 121H, Hematocrit 32L, Hemoglobin 10.2L, Lymphocytes # (Auto) 1.0, Lymphocytes (%) (Auto) 14, Mean Corpuscular Hemoglobin 29, Mean Corpuscular Hemoglobin Concent 32, Mean Corpuscular Volume 93, Mean Platelet Volume 8.5, Monocytes # (Auto) 1.0, Monocytes (%) (Auto) 14H, Neutrophils # (Auto) 5.0, Neutrophils (%) (Auto) 72, Platelet Count 259, Potassium Level 3.8, Red Blood Count 3.47L, Red Cell Distribution Width 17.0H, Sodium Level 138, Total Bilirubin 0.2, Total Protein 6.2L, White Blood Count 7.0 Microbiology 01/15/16 Gram Stain - Final, Complete 01/15/16 Sputum Culture - Final, Complete Pseudomonas Aeruginosa Klebsiella Pneumoniae Assessment/Plan Assessment S/P crani and removal Met lesion from breast ca Dysphagia NPO on tube feeds S/P trach on trac collar at night and with PMV during day S/P Radiation Therapy course while on Swing bed anemia s/p transfusion 2 unis PRBCS intermittent nausea felt to be ralted to meds-Zofran scheduled Diarrhea multifactorial Lomotil and Benefiber on Board-improving Recuurent pneumonia due to Vocal cord paralysis and sectretions to complete course of IV antibiotics Plan Continue PT/OT/ST Appreciate their notes and Specialists notes., Oral Thrush treated- Nystatin d/cd earlier this week Team Conference held 01-19-16-See report for full functional update and POC and ELOS The patient does have SNU benefits thru her insurance-this could be a good option once DR Staples has cleared for discharge Discharge now set tentatively for late next week-Will f/u with sw re details.. F/U re persistent nausea-most likely multifactorial UZMA VILLALOBOS MD Jan 21, 2016 08:42
--- NOTE | 2016-01-21 09:02 | Speech Therapy Daily Note ---
Speech Daily Progress Note Subjective The patient was repositioned upright in bed upon entrance. The patient was agreeable to ST. Objective Dysphagia Exercises: The patient demonstrated fair to good accuracy with the dysphagia exercises on this date. Increased audible secretions were noted throughout the session, however, the patient did not wish to be suctioned. Oral Care: The patient was provided extensive oral care by the clinician prior to the session. Assessment Assessment Current Status: Fair Progress Treatment Plan Continue Plan of Care Communication Comprehension: 5 Expression: 5 Social Cognition Social Interaction: 5 Problem Solvin Memory: 5 Speech Short Term Goals Short Term Goals Short Term Goals 1. The patient will independently demonstrate laryngeal, pharyngeal, and base of tongue exercises. Time Frame-STG: Two Weeks Speech Intermediate Goals Intermediate Goals 1. The patient will tolerate PO trials of the least restrictive consistency without signs/symptoms of aspiration or laryngeal penetration. Time Frame: Eight Weeks Comprehension: 6 Expression: 5 Social Interaction: 5 Problem Solvin Memory: 5 Speech-Plan Treatment Plan Speech Therapy Treatment Plan: Continue Plan of Care Treatment Duration: 30 # of days/week 4 to 5 Visits Per Week: 4 to 5 Minutes/Day (M-F): 30 Rehab Potential: Guarded Safety Risks/Education Teaching Recipient: Patient Teaching Methods: Demonstration, Discussion Response to Teaching: Verbalize Understanding, Return Demonstration, Reinforcement Needed Education Topics Provided: Dysphagia Exercises Time Speech Therapy Time In: 08:15 Speech Therapy Time Out: 08:45 Total Billed Time: 30 Billed Treatment Time Bina ASAEL GILBERT VORA Jan 21, 2016 09:02
[2016-01-21] MEDS: FAMOTIDINE 20 MG (PEPCID) TABLET JT SCH ×2 (09:43→21:22)
[2016-01-21] MEDS: LACTOBACILLUS Acidoph/Bulgar (LACTINEX/FLORANEX) TAB JT SCH ×4 (09:43→21:22)
[2016-01-21] MEDS: guaiFENesin SYRUP 100 MG/5 ML 10 ML (ROBITUSSIN SF) JT SCH ×4 (09:43→21:22)
[2016-01-21] MEDS: DIPHENOXYLATE/ATROPINE 2.5MG/0.025MG (LOMOTIL) TAB JT SCH ×2 (09:43→21:22)
[2016-01-21] MEDS: BENEFIBER (FROM DIETARY) DOCUMENTATION PURPOSE ONLY PO SCH ×3 (09:43→21:00)
[2016-01-21] MEDS: MAGNESIUM OXIDE (MAG-OX)400 MG TAB JT SCH ×2 (09:43→17:26)
--- NOTE | 2016-01-21 10:10 | Occupational Ther Daily Note ---
OT Current Status-Daily Note Subjective Pt lying in bed. Pt stated she brushed her teeth this morning. Pt reported no pain. Appearance Alert and agreed to OT. Mental Status/Objective Functional [place] Measure 0=Not Assessed/NA 4=Minimal Assistance 1=Total Assistance 5=Supervision or Setup 2=Maximal Assistance 6=Modified [place] 3=Moderate Assistance 7=Complete [place] ADL-Treatment Transfers (B, C, W/C) (FIM): 4 Other Treatment Pt transferred from bed to w/c min assist using FWW for support, verbal cues used for hand placement. Pt used arm bike for 10 min/10 maloney for strengthening (increased 2 min). Pt practiced with shoe string to string beads and remove beads to help increase pincer and nagel grasp. Pt propelled herself back to her room using her hand and feet. Pt left up in wheelchair with call light in hand. Education OT Patient Education: Purpose of tx/functional activities Teaching Recipient: Patient Teaching Methods: Discussion Response to Teaching: Verbalize Understanding OT Short Term Goals Short Term Goals Time Frame: 2 weeks Lower Body Dressing(FIM): 4 Toileting(FIM): 4 Transfers (B,C,W/C) (FIM): 5 Toilet/Commode Transfer(FIM): 4 Shower Transfer(FIM): 5 1=Demonstrate adherence to instructed precautions during ADL tasks. 2=Patient will verbalize/demonstrate understanding of assistive devices/ modifications for ADL. 3=Patient will improve strength/tolerance for activity to enable patient to perform ADL's. OT Shelter Goals [place] Goals Time Frame: 4 weeks Eating (FIM): 1 Grooming(FIM): 6 Bathing(FIM): 6 Upper Body Dressing(FIM): 6 Lower Body Dressing(FIM): 5 Toileting(FIM): 5 Transfers (B,C,W/C) (FIM): 5 Toilet/Commode Transfer(FIM): 5 Shower Transfer(FIM): 5 Comprehension(FIM): 6 Expression (FIM): 5 Social Interaction(FIM): 5 Problem Solving(FIM): 5 Memory(FIM): 5 Additional Goals: 2-Verbalize Understanding, 3-ImproveStrength/Enrrique 1=Demonstrate adherence to instructed precautions during ADL tasks. 2=Patient will verbalize/demonstrate understanding of assistive devices/ modifications for ADL. 3=Patient will improve strength/tolerance for activity to enable patient to perform ADL's. OT Education/Plan Problem List/Assessment Pt would benefit from skilled OT to increase her independence in basic self care to allow her to return home safely Discharge Recommendations Plan/Recommendations: Continue POC Treatment Plan/Plan of Care Patient would benefit from OT for education, treatment and training to promote independence in ADL's, mobility, safety and/or upper extremity function for ADL' s. Plan of Care: ADL Retraining, Caregiver Training, Functional Mobility, Orthotic Fitting/Training, UE Funct Exercise/Act, UE Neuromus Re-Ed/Coord Treatment Duration: 4 weeks Visits Per Week: 10-11 Minutes/Day (M-F): 75-90 Minutes/Day (Sat/[place]): prn Agreement: Yes Rehab Potential: Guarded Time/GCodes Start Time: 09:00 Stop Time: 09:45 Total Time Billed (hr/min): 45 Billed Treatment Time visit Ex 45 min KELLY ATKINS OT Jan 21, 2016 10:10
--- NOTE | 2016-01-21 10:39 | Progress Note (SOAP) ---
Subjective Subjective/Events-last exam pt reports that she is feeling a little bit better today - she reports that she has been getting nauseated intermittently. the nursing staff reports that the nausea that erna reports has been with her feedings, as soon as the feedings are stopped her nausea improved. I have talked to Dr. Muro in radiology - i informed erna that she should expect him to come up to see what type of tube she has and to see if he can replace the tube in radiology - most-likely this will occur next week. erna reports that she is worried about having the feeding tube "forever" and is wondering how we can help her to no longer need the feeding tubes. Review of Systems General: Fatigue HEENT: No Head Aches Pulmonary: No Dyspnea, Cough Cardiovascular: No: Chest Pain Gastrointestinal: : Nausea (intermittently)No: Abdominal Pain Genitourinary: No Dysuria Neurological: : Weakness Objective Exam Vital Signs Date Time Temp Pulse Resp B/P Pulse Ox O2 Delivery O2 Flow Rate FiO2 01/21/16 08:51 92 Room Air 01/21/16 08:00 92 Room Air 01/21/16 06:00 97.6 104 18 114/75 96 Room Air 01/21/16 03:07 95 Room Air 01/20/16 22:40 95 Room Air 01/20/16 20:00 Room Air 01/20/16 18:12 98.2 100 18 103/67 97 Room Air 01/20/16 16:07 90 Room Air 21 I & O 01/21/16 07:00 Intake Total 2355 ml Output Total 550 ml Balance 1805 ml Capillary Refill : General Appearance: No Apparent Distress Thin HEENT: PERRL/EOMI Neck: Supple Respiratory: Chest Non Tender Decreased Breath Sounds Rhonci Cardiovascular: Regular Rate, Rhythm Gastrointestinal: normal bowel sounds non tender soft other (feeding tubes in place c/d/i) Extremity: Pedal Edema Neurologic/Psychiatric: Alert Oriented x3 Normal Mood/Affect Results Lab Laboratory Tests 01/21/16 06:20: Alanine Aminotransferase (ALT/SGPT) 19, Albumin 3.2, Alkaline Phosphatase 90, Anion Gap 11, Aspartate Amino Transf (AST/SGOT) 18, BUN/Creatinine Ratio 16, Basophils # (Auto) 0.0, Basophils (%) (Auto) 0, Blood Urea Nitrogen 8, Calcium Level 9.2, Carbon Dioxide Level 25, Chloride Level 102, Creatinine 0.51L, Eosinophils # (Auto) 0.0, Eosinophils (%) (Auto) 0, Estimat Glomerular Filtration Rate > 60, Glucose Level 121H, Hematocrit 32L, Hemoglobin 10.2L, Lymphocytes # (Auto) 1.0, Lymphocytes (%) (Auto) 14, Mean Corpuscular Hemoglobin 29, Mean Corpuscular Hemoglobin Concent 32, Mean Corpuscular Volume 93, Mean Platelet Volume 8.5, Monocytes # (Auto) 1.0, Monocytes (%) (Auto) 14H, Neutrophils # (Auto) 5.0, Neutrophils (%) (Auto) 72, Platelet Count 259, Potassium Level 3.8, Red Blood Count 3.47L, Red Cell Distribution Width 17.0H, Sodium Level 138, Total Bilirubin 0.2, Total Protein 6.2L, White Blood Count 7.0 Microbiology 01/15/16 Gram Stain - Final, Complete 01/15/16 Sputum Culture - Final, Complete Pseudomonas Aeruginosa Klebsiella Pneumoniae Assessment/Plan Assessment/Plan Assess & Plan/Chief Complaint Pseudomonal pneumonia Aspiration pneumonia Metastatic breast cancer Post-operative generalized weakness Feeding tube status Blocked J-tube Underweight Pseudomonal pneumonia - Aspiration pneumonia - continue with head of bed elevated at 30 degrees. Continue with iv antibiotics. 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 Bardales. Weakness - continue with pt/ot/speech/rec therapy. Goal of return to home at the end of this Month. Feeding tube - pt intolerant of feedings - I have asked staff to decrease feedings back down to 50ml continuous to see if the 60mL was too much for Erna , monitor weight closely and monitor her symptoms of nausea. I have also talked to Dr. Muro - I discussed Erna with him on Sunday night - he has been looking to see if they have a J tube available in radiology to possible switch out the tube, if not, they will look for a tube in Surgery to see if they have a tube and possibly do a switch today or Sunday. If the change out of the J tube is successful, then we can try to do bolus feedings on Erna and hopefully decrease her risk of aspiration further with this type of feeding. Diagnosis/Problems: Clinical Quality Measures DVT/VTE Risk/Contraindication: Risk Factor Score Per Nursin RFS Level Per Nursing on Admit: 4+=Very High BERTA TINOCO MD Jan 21, 2016 10:38
--- NOTE | 2016-01-21 11:06 | Physical Therapy Daily Note ---
PT Daily Note-Current Subjective Pt. agreeable to Rx. States she has had some upset stomach but feels a little better now. During toileting states she is still having trouble helping pull pants up down and cleaning herself Pain Numeric Pain Scale: 0-No Pain Mental Status Patient Orientation: Normal For Age Attachments: PEG Tube, Other-See Comments (trach) Transfers Transfers (B, C, W/C) (FIM): 4 Scootin Rollin Supine to/from Sit: 5 Sit to/from Stand: 4 Bed to/from Chair: 5 Gait Training Gait (FIM): 1 Distance (FIM): 1=up to 49 ft (15x4) Gait Level of Assist: 4 Gait Persons Needed: 1 Gait Assistive Device: Parallel Bars parallel bars and FWW both utilized Wheelchair Training Wheelchair (FIM): 2 Wheelchair Distance: 6=615-45 ft (50ftx2) Wheelchair Level of Assist: 4 Exercises Supine Ex: Bridging, Ankle pumps, Quad Set, Rolling, Glut sets, Heel Slides, Short Arc Quads, Scooting, Straight leg raise (with assist), Hip abd/add Seated Therapy Exercises: Ankle pumps, Sit to stand, Long arc quads, Hip flexion Seated Reps: 10 Treatments toileted with assist of 2, one for clothing and cleaning and one for managing TRF Assessment Current Status: Good Progress PT Short Term Goals Short Term Goals Time Frame: Two Weeks Transfers (B,C,W/C) (FIM): 5 Gait (FIM): 1 Distance (FIM): 1=up to 49 ft Gait Distance Comment: 25' Gait Level of Assist: 3 Gait Assistive Device: FWW Wheelchair (FIM): 1 (achieved on 01/13/16) Wheelchair distance (FIM): 1=up to 49 ft Wheelchair Distance: 50 Wheelchair Level of Assist: 4 PT Gear Cutting Machine Operator Goals Gear Cutting Machine Operator Goals Time Frame: 4 wks Transfers (B,C,W/C) (FIM): 5 Gait (FIM): 1 Gait distance (FIM): 1=up to 49 ft Distance: 45' Gait Level of Assist: 4 Gait Assistive Device: FWW Stairs (FIM): 1 # of Steps: 4 Stairs Level Of Assist: 4 PT Plan Treatment/Plan Treatment Plan: Continue Plan of Care Treatment Plan: Bed Mobility, Education, Functional Activity Enrrique, Functional Strength, Group Therapy, Gait, Safety, Therapeutic Exercise, Transfers Treatment Duration: 4 wks Visits Per Week: 10-11 Minutes/Day (M-F): 60-90 Minutes/Day (Sat/[place]): PRN Safety Risks/Education Patient Education: Gait Training, Transfer Techniques Teaching Recipient: Patient Teaching Methods: Demonstration, Discussion Response to Teaching: Verbalize Understanding, Return Demonstration, Reinforcement Needed Time/GCodes Time In: 1000 Time Out: 1100 Total Billed Treatment Time: 60 Total Billed Treatment 1,Gt20,FA30,EX10 G Codes Necessary: KATLIN Maynard DURABILITY ENGINEER Jan 21, 2016 11:06
--- NOTE | 2016-01-21 11:48 | Progress Note (SOAP) ---
Subjective Subjective/Events-last exam Participating with PT and OT. States her nausea is more in the mornings; Faslodex given yesterday; Objective Exam Vital Signs Date Time Temp Pulse Resp B/P Pulse Ox O2 Delivery O2 Flow Rate FiO2 01/21/16 08:51 92 Room Air 01/21/16 08:00 92 Room Air 01/21/16 06:00 97.6 104 18 114/75 96 Room Air 01/21/16 03:07 95 Room Air 01/20/16 22:40 95 Room Air 01/20/16 20:00 Room Air 01/20/16 18:12 98.2 100 18 103/67 97 Room Air 01/20/16 16:07 90 Room Air 21 I & O 01/21/16 07:00 Intake Total 2355 ml Output Total 550 ml Balance 1805 ml Capillary Refill : General Appearance: No Apparent Distress Chronically ill HEENT: PERRL/EOMI Other (trach in place) Respiratory: Crackles Cardiovascular: Regular Rate, Rhythm No Edema Gastrointestinal: normal bowel sounds other (JPEG with triple lumen in place) Extremity: No Pedal Edema Neurologic/Psychiatric: Alert Oriented x3 Motor Weakness Results Lab Laboratory Tests 01/21/16 06:20 Assessment/Plan Assessment/Plan Assess & Plan/Chief Complaint 1. Recurrent Pseudomonas pneumonia--bilateral upper lobes--patient is receiving IV cefepime and IV levofloxacin which should be continued for a minimum of 14 days. 2. Symptomatic anemia-check iron studies, vitamin B-12, folate and transfuse 2 units packed RBCs. 3. History of brain metastasis, status post resection at [facility] October 2015--Whole brain radiation completed on 01/04/16; a. Decadron has been tapered off. 4. Right breast cancer-infiltrating mammary cancer T2 N3b M0, Stage IIIC poorly differentiated high-grade ER 40 percent , IN negative Ki-67, 20 percent HER-2/linda 3+ positive, luminal B subtype; adjuvant chemotherapy, radiation and 1 year of trastuzumab completed on 09/14/15. a. Faslodex 500mg day 1 has been given on 12/22/15; b. Faslodex 500 mg day 15 given on 01/05/16 and day 29 was given on 01/20/16 and next dose due in 4 weeks or on 02/17/16 and monthly thereafter; 5. Vocal cord paralysis/dysphagia--patient has JPEG for tube feeding. a. Barium swallow done 01/04/16 positive for aspiration; b. Possible Feeding tube replacement as per Drs. Muro and Stew 6. Debility--patient is receiving PT and OT to optimize functional status -- Cooperation is improving. Diagnosis/Problems: Clinical Quality Measures DVT/VTE Risk/Contraindication: Risk Factor Score Per Nursin RFS Level Per Nursing on Admit: 4+=Very High ONESIMO HUFFMAN MD Jan 21, 2016 11:48 ONESIMO HUFFMAN MD Jan 21, 2016 11:48 RFS Level Per Nursing on Admit: 4+=Very High ONESIMO HUFFMAN MD Jan 21, 2016 11:48
--- NOTE | 2016-01-21 14:36 | Occupational Ther Daily Note ---
OT Current Status-Daily Note Subjective Pt lying in bed, agreeable to OT. Pt stated she is waiting for nurse to suction her. Appearance alert and cooperative Mental Status/Objective Functional [place] Measure 0=Not Assessed/NA 4=Minimal Assistance 1=Total Assistance 5=Supervision or Setup 2=Maximal Assistance 6=Modified [place] 3=Moderate Assistance 7=Complete [place] Other Treatment Pt worked on grasp by using (yellow) foam sponge 2 sets of 15 reps on each hand (increased sets). Theraband used for strength, 2 sets of 15 reps on each arm. Theraputty (yellow) used for pincer grasp to remove beads and place beads back. Theraputty was rolled between hands for dynamic movement. Pt left lying in bed. Call light in hand. All needs met. Education OT Patient Education: Exercise program Teaching Recipient: Patient Teaching Methods: Demonstration Response to Teaching: Verbalize Understanding OT Short Term Goals Short Term Goals Time Frame: 2 weeks Lower Body Dressing(FIM): 4 Toileting(FIM): 4 Transfers (B,C,W/C) (FIM): 5 Toilet/Commode Transfer(FIM): 4 Shower Transfer(FIM): 5 1=Demonstrate adherence to instructed precautions during ADL tasks. 2=Patient will verbalize/demonstrate understanding of assistive devices/ modifications for ADL. 3=Patient will improve strength/tolerance for activity to enable patient to perform ADL's. OT Director Medical Safety Goals [place] Goals Time Frame: 4 weeks Eating (FIM): 1 Grooming(FIM): 6 Bathing(FIM): 6 Upper Body Dressing(FIM): 6 Lower Body Dressing(FIM): 5 Toileting(FIM): 5 Transfers (B,C,W/C) (FIM): 5 Toilet/Commode Transfer(FIM): 5 Shower Transfer(FIM): 5 Comprehension(FIM): 6 Expression (FIM): 5 Social Interaction(FIM): 5 Problem Solving(FIM): 5 Memory(FIM): 5 Additional Goals: 2-Verbalize Understanding, 3-ImproveStrength/Enrrique 1=Demonstrate adherence to instructed precautions during ADL tasks. 2=Patient will verbalize/demonstrate understanding of assistive devices/ modifications for ADL. 3=Patient will improve strength/tolerance for activity to enable patient to perform ADL's. OT Education/Plan Problem List/Assessment Pt would benefit from skilled OT to increase her independence in basic self care to allow her to return home safely Discharge Recommendations Plan/Recommendations: Continue POC Treatment Plan/Plan of Care Patient would benefit from OT for education, treatment and training to promote independence in ADL's, mobility, safety and/or upper extremity function for ADL' s. Plan of Care: ADL Retraining, Caregiver Training, Functional Mobility, Orthotic Fitting/Training, UE Funct Exercise/Act, UE Neuromus Re-Ed/Coord Treatment Duration: 4 weeks Visits Per Week: 10-11 Minutes/Day (M-F): 75-90 Minutes/Day (Sat/[place]): prn Agreement: Yes Rehab Potential: Guarded Time/GCodes Start Time: 13:00 Stop Time: 13:30 Total Time Billed (hr/min): 30 Billed Treatment Time visit ex 30 min KELLY ATKINS OT Jan 21, 2016 14:35
--- NOTE | 2016-01-21 14:44 | Physical Therapy Daily Note ---
PT Daily Note-Current Subjective Patient is in bed and agrees to exercises. Pain Numeric Pain Scale: 0-No Pain Location: No Pain Reported Mental Status Patient Orientation: Normal For Age Exercises Supine Ex: Bridging, Ankle pumps, Quad Set, Heel Slides, Straight leg raise, Hip abd/add Supine Reps: 20 (x 2 sets) Assessment Patient is highly motivated with the possibility to returning to home in a week. PT Short Term Goals Short Term Goals Time Frame: Two Weeks Transfers (B,C,W/C) (FIM): 5 Gait (FIM): 1 Distance (FIM): 1=up to 49 ft Gait Distance Comment: 25' Gait Level of Assist: 3 Gait Assistive Device: FWW Wheelchair (FIM): 1 (achieved on 01/13/16) Wheelchair distance (FIM): 1=up to 49 ft Wheelchair Distance: 50 Wheelchair Level of Assist: 4 PT Correction Goals Lens Blank Gauger Goals Time Frame: 4 wks Transfers (B,C,W/C) (FIM): 5 Gait (FIM): 1 Gait distance (FIM): 1=up to 49 ft Distance: 45' Gait Level of Assist: 4 Gait Assistive Device: FWW Stairs (FIM): 1 # of Steps: 4 Stairs Level Of Assist: 4 PT Plan Treatment/Plan Treatment Plan: Continue Plan of Care Treatment Plan: Bed Mobility, Education, Functional Activity Enrrique, Functional Strength, Group Therapy, Gait, Safety, Therapeutic Exercise, Transfers Treatment Duration: 4 wks Visits Per Week: 10-11 Minutes/Day (M-F): 60-90 Minutes/Day (Sat/[place]): PRN Time/GCodes Time In: 1400 Time Out: 1415 Total Billed Treatment Time: 15 Total Billed Treatment 1 visit EX 15 min TONG STROUD PT Jan 21, 2016 14:44
[2016-01-21] MEDS: ENOXAPARIN 40 MG/0.4 ML (LOVENOX) SYR SC SCH (17:27)
[2016-01-21 18:00] VITALS: BP 121/77
[2016-01-21] MEDS: APAP 325 MG/10.15 ML LIQ (TYLENOL) UDC JT PRN (21:23)
[2016-01-22] MEDS: ONDANSETRON 4 MG/2 ML (SDV) Z0FRAN IVP SCH ×4 (00:44→17:31)
[2016-01-22] MEDS: RT-ALBUTEROL/IPRATROPIUM 3 ML (DUONEB) VIAL INH SCH ×4 (02:14→21:34)
[2016-01-22 06:00] VITALS: BP 107/70
[2016-01-22] MEDS: aCETylcysteine 20% (MUCOMYST) 30ML SOLN VIAL INH SCH ×2 (06:28→21:00)
[2016-01-22] MEDS: LEVOFLOXACIN 750 MG/150 ML IV 150 ML IV SCH (06:44)
[2016-01-22] MEDS: METOCLOPRAMIDE 10MG/10ML ORAL SOL(REGLAN) UDC PO SCH ×4 (06:45→22:01)
--- NOTE | 2016-01-22 07:41 | Occupational Ther Daily Note ---
OT Current Status-Daily Note Subjective Pt alert, lying in bed. Pt agreed to therapy. No c/o pain or nausea this morning. Mental Status/Objective Patient Orientation: Person, Place, Time, Situation Functional [place] Measure 0=Not Assessed/NA 4=Minimal Assistance 1=Total Assistance 5=Supervision or Setup 2=Maximal Assistance 6=Modified [place] 3=Moderate Assistance 7=Complete [place] Attachments: IV, PEG Tube trach ADL-Treatment After set up, pt was able to wash face/hands, brush teeth and brush hair. Pt declined to change clothes this morning. Other Treatment Pt completed UE exercises with light resistance therapy foam and theraband. Pt' s R UE weaker than L UE. Pt was able to reach up to face with B UE. Pt fatigued quickly with exercises. After therapy, pt lying in bed with call light /phone in reach. HOB at 30* elevated. All needs met in room. OT Short Term Goals Short Term Goals Time Frame: 2 weeks Lower Body Dressing(FIM): 4 Toileting(FIM): 4 Transfers (B,C,W/C) (FIM): 5 Toilet/Commode Transfer(FIM): 4 Shower Transfer(FIM): 5 1=Demonstrate adherence to instructed precautions during ADL tasks. 2=Patient will verbalize/demonstrate understanding of assistive devices/ modifications for ADL. 3=Patient will improve strength/tolerance for activity to enable patient to perform ADL's. OT Mcfp Goals Mcfp Goals Time Frame: 4 weeks Eating (FIM): 1 Grooming(FIM): 6 Bathing(FIM): 6 Upper Body Dressing(FIM): 6 Lower Body Dressing(FIM): 5 Toileting(FIM): 5 Transfers (B,C,W/C) (FIM): 5 Toilet/Commode Transfer(FIM): 5 Shower Transfer(FIM): 5 Comprehension(FIM): 6 Expression (FIM): 5 Social Interaction(FIM): 5 Problem Solving(FIM): 5 Memory(FIM): 5 Additional Goals: 2-Verbalize Understanding, 3-ImproveStrength/Enrrique 1=Demonstrate adherence to instructed precautions during ADL tasks. 2=Patient will verbalize/demonstrate understanding of assistive devices/ modifications for ADL. 3=Patient will improve strength/tolerance for activity to enable patient to perform ADL's. OT Education/Plan Problem List/Assessment Pt would benefit from skilled OT to increase her independence in basic self care to allow her to return home safely Discharge Recommendations Plan/Recommendations: Continue POC Treatment Plan/Plan of Care Patient would benefit from OT for education, treatment and training to promote independence in ADL's, mobility, safety and/or upper extremity function for ADL' s. Plan of Care: ADL Retraining, Caregiver Training, Functional Mobility, Orthotic Fitting/Training, UE Funct Exercise/Act, UE Neuromus Re-Ed/Coord Treatment Duration: 4 weeks Visits Per Week: 10-11 Minutes/Day (M-F): 75-90 Minutes/Day (Sat/M[place]): prn Agreement: Yes Rehab Potential: Guarded Time/GCodes Start Time: 07:20 Stop Time: 07:40 Total Time Billed (hr/min): 20 Billed Treatment Time 1 visit-FA 1 (20 min) HUMBERTO LUNA Jan 22, 2016 07:41
[2016-01-22] MEDS: FAMOTIDINE 20 MG (PEPCID) TABLET JT SCH ×2 (08:25→22:02)
[2016-01-22] MEDS: MAGNESIUM OXIDE (MAG-OX)400 MG TAB JT SCH ×2 (08:25→17:31)
[2016-01-22] MEDS: guaiFENesin SYRUP 100 MG/5 ML 10 ML (ROBITUSSIN SF) JT SCH ×4 (08:25→22:01)
[2016-01-22] MEDS: BENEFIBER (FROM DIETARY) DOCUMENTATION PURPOSE ONLY PO SCH ×3 (08:25→22:02)
[2016-01-22] MEDS: DIPHENOXYLATE/ATROPINE 2.5MG/0.025MG (LOMOTIL) TAB JT SCH ×2 (08:25→22:02)
[2016-01-22] MEDS: LACTOBACILLUS Acidoph/Bulgar (LACTINEX/FLORANEX) TAB JT SCH ×4 (08:25→22:02)
--- NOTE | 2016-01-22 12:47 | Physical Therapy Daily Note ---
PT Daily Note-Current Subjective Pt agreeable. Pt denies pain. Pt reports she was fatigued following therapy. Pt says she is excited to go for home visit tomorrow. Mental Status Patient Orientation: Person, Place, Situation Attachments: PEG Tube Transfers Min A to EOB. Min A-CGA for sit to stand Gait Training Gait Assistive Device: Parallel Bars Pt amb in //bars x 15 ft forward and x 15 ft retro ambulation with close f/u w/ c throughout and CGA. Pt amb with FWW and CGA, min A to keep walker in close proximity and close f/u of w/c x 25ft. Exercises Supine Ex: Ankle pumps, Quad Set, Heel Slides, Short Arc Quads, Hip abd/add Supine Reps: 20 Standing: Hip Abduction, Marching, Sit to Stand Standing Reps: 10 Treatments Pt seen for ther ex in bed, standing ther ex at //bars, sit to stand training at from EOB, gait training in //bars, balance training, gait training with FWW. Assessment Current Status: Good Progress Pt (B) LE fatigued easily with standing therex. Pt hayden well with rest breaks as needed. Pt on commode with nurse present post therapy session. Pt continues to be min A for all mobility at this time. Pt would benefit from continued PT to improve strength,stamina and functional mobility. PT Short Term Goals Short Term Goals Time Frame: Two Weeks Transfers (B,C,W/C) (FIM): 5 Gait (FIM): 1 Distance (FIM): 1=up to 49 ft Gait Distance Comment: 25' Gait Level of Assist: 3 Gait Assistive Device: FWW Wheelchair (FIM): 1 (achieved on 01/13/16) Wheelchair distance (FIM): 1=up to 49 ft Wheelchair Distance: 50 Wheelchair Level of Assist: 4 PT Jail Goals Software Engineer Intern Goals Time Frame: 4 wks Transfers (B,C,W/C) (FIM): 5 Gait (FIM): 1 Gait distance (FIM): 1=up to 49 ft Distance: 45' Gait Level of Assist: 4 Gait Assistive Device: FWW Stairs (FIM): 1 # of Steps: 4 Stairs Level Of Assist: 4 PT Plan Treatment/Plan Treatment Plan: Continue Plan of Care Treatment Plan: Bed Mobility, Education, Functional Activity Enrrique, Functional Strength, Group Therapy, Gait, Safety, Therapeutic Exercise, Transfers Treatment Duration: 4 wks Visits Per Week: 10-11 Minutes/Day (M-F): 60-90 Minutes/Day (Sat/[place]): PRN Time/GCodes Time In: 1145 Time Out: 1230 Total Billed Treatment Time: 45 Total Billed Treatment 1, ther ex 15 min, gait 30 min PHAN SMALL CPTA Jan 22, 2016 12:47
[2016-01-22] MEDS: APAP 325 MG/10.15 ML LIQ (TYLENOL) UDC JT PRN ×2 (13:04→22:01)
--- NOTE | 2016-01-22 15:23 | Oncology Progress Note ---
Subjective Subjective/Events-last exam No new issues. Many family members were visiting her when I walked into her room. She appears very cheerful. Data Review Labs Laboratory Tests 01/21/16 06:20: Creatinine 0.51L, Glucose Level 121H, Hematocrit 32L, Hemoglobin 10.2L, Monocytes (%) (Auto) 14H, Red Blood Count 3.47L, Red Cell Distribution Width 17.0H, Total Protein 6.2L Physical Exam Vital Signs Vital Sign - Last 12Hours 01/16/16 01/16/16 01/20/16 02:31 04:14 16:07 Temp 97.5 Pulse 88 Resp 18 B/P 101/66 Pulse Ox 93 O2 Delivery Room Air FiO2 21 Capillary Refill : General Appearance: No Apparent Distress HEENT: PERRL/EOMI Other (treachestomy) Respiratory: Crackles Rhonci Cardiovascular: Regular Rate, Rhythm No Edema Gastrointestinal: Non Tender Soft Other (peg tube) Extremity: Non Tender No Calf Tenderness No Pedal Edema Neurologic/Psychiatric: Alert Oriented x3 Impression & Plan Impression & Plan Assess & Plan/Chief Complaint 1. Recurrent Pseudomonas pneumonia--bilateral upper lobes--patient is receiving IV cefepime and IV levofloxacin which should be continued for a minimum of [address] Bardales, her primary oncologist. 2. Symptomatic anemia-check iron studies, vitamin B-12, folate and post transfuse 2 units packed RBCs. Hb 10.2 now. 3. History of brain metastasis, status post resection at [facility] October 2015--Whole brain radiation completed on 01/04/16; a. Decadron has been tapered off. 4. Right breast cancer-infiltrating mammary cancer T2 N3b M0, Stage IIIC poorly differentiated high-grade ER 40 percent , [place] negative Ki-67, 20 percent HER-2/linda 3+ positive, luminal B subtype; adjuvant chemotherapy, radiation and 1 year of trastuzumab completed on 09/14/15. a. Faslodex 500mg day 1 has been given on 12/22/15; b. Faslodex 500 mg day 15 given on 01/05/16 and day 29 was given on 01/20/16 and next dose due in 4 weeks or on 02/17/16 and monthly thereafter; 5. Vocal cord paralysis/dysphagia--patient has JPEG for tube feeding. a. Barium swallow done 01/04/16 positive for aspiration; b. Possible Feeding tube replacement as per Drs. Muro and Stew next week. 6. Debility--patient is receiving PT and OT to optimize functional status -- Cooperation is improving. Clinical Quality Measures DVT/VTE Risk/Contraindication: Risk Factor Score Per Nursin RFS Level Per Nursing on Admit: 4+=Very High FAISAL MARINELLI MD Jan 22, 2016 15:23
[2016-01-22] MEDS: ENOXAPARIN 40 MG/0.4 ML (LOVENOX) SYR SC SCH (16:37)
[2016-01-22 17:52] VITALS: BP 107/69
[2016-01-23] MEDS: ONDANSETRON 4 MG/2 ML (SDV) Z0FRAN IVP SCH ×4 (00:13→17:52)
[2016-01-23] MEDS: RT-ALBUTEROL/IPRATROPIUM 3 ML (DUONEB) VIAL INH SCH ×4 (02:27→20:06)
[2016-01-23 06:00] VITALS: BP 98/64
[2016-01-23] MEDS: LEVOFLOXACIN 750 MG/150 ML IV 150 ML IV SCH (06:56)
[2016-01-23] MEDS: METOCLOPRAMIDE 10MG/10ML ORAL SOL(REGLAN) UDC PO SCH ×4 (06:56→21:53)
[2016-01-23] MEDS: DIPHENOXYLATE/ATROPINE 2.5MG/0.025MG (LOMOTIL) TAB JT SCH ×2 (08:21→21:53)
[2016-01-23] MEDS: MAGNESIUM OXIDE (MAG-OX)400 MG TAB JT SCH ×2 (08:21→17:52)
[2016-01-23] MEDS: FAMOTIDINE 20 MG (PEPCID) TABLET JT SCH ×2 (08:21→21:53)
[2016-01-23] MEDS: BENEFIBER (FROM DIETARY) DOCUMENTATION PURPOSE ONLY PO SCH ×3 (08:21→21:53)
[2016-01-23] MEDS: guaiFENesin SYRUP 100 MG/5 ML 10 ML (ROBITUSSIN SF) JT SCH ×5 (08:21→21:53)
[2016-01-23] MEDS: LACTOBACILLUS Acidoph/Bulgar (LACTINEX/FLORANEX) TAB JT SCH ×5 (08:21→21:53)
[2016-01-23] MEDS: aCETylcysteine 20% (MUCOMYST) 30ML SOLN VIAL INH SCH ×2 (09:21→20:06)
[2016-01-23] MEDS: ENOXAPARIN 40 MG/0.4 ML (LOVENOX) SYR SC SCH (16:00)
[2016-01-23 18:10] VITALS: BP 112/77
--- NOTE | 2016-01-23 19:56 | Oncology Progress Note ---
Subjective Subjective/Events-last exam Pt is comfortably sleeping. She is more tired today. Data Review Labs Laboratory Tests 01/21/16 06:20: Creatinine 0.51L, Glucose Level 121H, Hematocrit 32L, Hemoglobin 10.2L, Monocytes (%) (Auto) 14H, Red Blood Count 3.47L, Red Cell Distribution Width 17.0H, Total Protein 6.2L Physical Exam Vital Signs Vital Sign - Last 12Hours 01/17/16 01/17/16 01/20/16 01:42 06:00 16:07 Temp 99.5 Pulse 101 Resp 18 B/P 98/65 Pulse Ox 98 O2 Delivery Room Air FiO2 21 Capillary Refill : General Appearance: No Apparent Distress Respiratory: No Accessory Muscle Use No Respiratory Distress Rhonci Gastrointestinal: Non Tender Soft Extremity: Non Tender No Calf Tenderness No Pedal Edema Neurologic/Psychiatric: Alert Oriented x3 Impression & Plan Impression & Plan Assess & Plan/Chief Complaint 1. Recurrent Pseudomonas pneumonia--bilateral upper lobes--patient is receiving IV levofloxacin. Dr. Staples stopped Cefepime on 01/19/2016. Pt is only on single antibiotics Levaquin. 2. Symptomatic anemia-check iron studies, vitamin B-12, folate and post transfuse 2 units packed RBCs. Hb 10.2 now. 3. History of brain metastasis, status post resection at [facility] October 2015--Whole brain radiation completed on 01/04/16; a. Decadron has been tapered off. 4. Right breast cancer-infiltrating mammary cancer T2 N3b M0, Stage IIIC poorly differentiated high-grade ER 40 percent , [place] negative Ki-67, 20 percent HER-2/linda 3+ positive, luminal B subtype; adjuvant chemotherapy, radiation and 1 year of trastuzumab completed on 09/14/15. a. Faslodex 500mg day 1 has been given on 12/22/15; b. Faslodex 500 mg day 15 given on 01/05/16 and day 29 was given on 01/20/16 and next dose due in 4 weeks or on 02/17/16 and monthly thereafter; 5. Vocal cord paralysis/dysphagia--patient has JPEG for tube feeding. a. Barium swallow done 01/04/16 positive for aspiration; b. Possible Feeding tube replacement as per Drs. Mruo and Stew next week. 6. Debility--patient is receiving PT and OT to optimize functional status -- Cooperation is improving. Clinical Quality Measures DVT/VTE Risk/Contraindication: Risk Factor Score Per Nursin RFS Level Per Nursing on Admit: 4+=Very High FAISAL MARINELLI MD Jan 23, 2016 19:56
[2016-01-23] MEDS: APAP 325 MG/10.15 ML LIQ (TYLENOL) UDC JT PRN (22:06)
[2016-01-24] MEDS: ONDANSETRON 4 MG/2 ML (SDV) Z0FRAN IVP SCH ×5 (00:09→23:29)
[2016-01-24] MEDS: RT-ALBUTEROL/IPRATROPIUM 3 ML (DUONEB) VIAL INH SCH ×4 (02:12→20:22)
[2016-01-24 04:16] VITALS: BP 100/66
[2016-01-24] MEDS: METOCLOPRAMIDE 10MG/10ML ORAL SOL(REGLAN) UDC PO SCH ×4 (06:16→21:36)
[2016-01-24] MEDS: LEVOFLOXACIN 750 MG/150 ML IV 150 ML IV SCH (06:16)
[2016-01-24 07:19] LABS: BASOPHILS % (AUTO) 0 % (0-10); EOSINOPHILS % (AUTO) 0 % (0-10); LYMPHOCYTES # (AUTO) 0.9 X 10^3 (1.0-4.0); LYMPHOCYTES % (AUTO) 9 % (12-44); MEAN CORPUSCULAR HEMOGLOBIN 29 PG (25-34); MEAN CORPUSCULAR HGB CONC 31 G/DL (32-36); MEAN CORPUSCULAR VOLUME 94 FL (80-99); MEAN PLATELET VOLUME 8.7 FL (7.4-10.4); MONOCYTES # (AUTO) 1.3 X 10^3 (0.0-1.0); MONOCYTES % (AUTO) 13 % (0-12); NEUTROPHILS # (AUTO) 7.7 X 10^3 (1.8-7.8); NEUTROPHILS % (AUTO) 78 % (42-75); PLATELET COUNT 291 10^3/uL (130-400); RED BLOOD COUNT 3.71 10^6/uL (4.35-5.85); RED CELL DISTRIBUTION WIDTH 17.1 % (10.0-14.5); WHITE BLOOD COUNT 9.9 10^3/uL (4.3-11.0)
[2016-01-24 07:33] LABS: ALANINE AMINOTRANSFERASE 22 U/L (0-55); ALBUMIN 3.4 G/DL (3.2-4.5); ANION GAP 10 MMOL/L (5-14); ASPARTATE AMINO TRANSFERASE 19 U/L (5-34); BILIRUBIN,TOTAL 0.3 MG/DL (0.1-1.0); BLOOD UREA NITROGEN 9 MG/DL (7-18); BUN/CREATININE RATIO 16; CALCIUM 9.4 MG/DL (8.5-10.1); CARBON DIOXIDE 27 MMOL/L (21-32); CHLORIDE 101 MMOL/L (98-107); CREATININE SERUM 0.55 MG/DL (0.60-1.30); GFR ESTIMATED > 60; GLUCOSE 109 MG/DL (70-105); POTASSIUM 3.9 MMOL/L (3.6-5.0); SODIUM 138 MMOL/L (135-145); TOTAL PROTEIN 6.2 G/DL (6.4-8.2)
[2016-01-24] MEDS: guaiFENesin SYRUP 100 MG/5 ML 10 ML (ROBITUSSIN SF) JT SCH ×4 (08:40→21:36)
[2016-01-24] MEDS: LACTOBACILLUS Acidoph/Bulgar (LACTINEX/FLORANEX) TAB JT SCH ×4 (08:40→21:36)
[2016-01-24] MEDS: MAGNESIUM OXIDE (MAG-OX)400 MG TAB JT SCH ×2 (08:40→17:45)
[2016-01-24] MEDS: DIPHENOXYLATE/ATROPINE 2.5MG/0.025MG (LOMOTIL) TAB JT SCH ×2 (08:40→21:36)
[2016-01-24] MEDS: FAMOTIDINE 20 MG (PEPCID) TABLET JT SCH ×2 (08:40→21:36)
[2016-01-24] MEDS: BENEFIBER (FROM DIETARY) DOCUMENTATION PURPOSE ONLY PO SCH ×3 (08:53→21:40)
--- NOTE | 2016-01-24 09:56 | Speech Therapy Daily Note ---
Speech Daily Progress Note Subjective The patient was laying in bed upon entrance. The patient reported nausea on this date but was agreeable to ST. Objective Dysphagia Exercises: The patient completed ten repetitions of each exercise on this date. The patient was provided breaks between exercises for rest. The patient demonstrated fair to good accuracy with exercises. Assessment Assessment Current Status: Fair Progress Treatment Plan Continue Plan of Care Communication Comprehension: 5 Expression: 5 Social Cognition Social Interaction: 5 Problem Solvin Memory: 5 Speech Short Term Goals Short Term Goals Short Term Goals 1. The patient will independently demonstrate laryngeal, pharyngeal, and base of tongue exercises. Time Frame-STG: Two Weeks Speech Wax Coating Machine Tender Goals Wax Coating Machine Tender Goals 1. The patient will tolerate PO trials of the least restrictive consistency without signs/symptoms of aspiration or laryngeal penetration. Time Frame: Eight Weeks Comprehension: 6 Expression: 5 Social Interaction: 5 Problem Solvin Memory: 5 Speech-Plan Treatment Plan Speech Therapy Treatment Plan: Continue Plan of Care Treatment Duration: 30 # of days/week 4 to 5 Visits Per Week: 4 to 5 Minutes/Day (M-F): 30 Rehab Potential: Guarded Safety Risks/Education Teaching Recipient: Patient Teaching Methods: Demonstration, Discussion Response to Teaching: Return Demonstration, Reinforcement Needed Education Topics Provided: Dysphagia Exercises Time Speech Therapy Time In: 09:00 Speech Therapy Time Out: 09:30 Total Billed Time: 30 Billed Treatment Time 1, GILBERT JAMES Jan 24, 2016 09:56
[2016-01-24] MEDS: aCETylcysteine 20% (MUCOMYST) 30ML SOLN VIAL INH SCH ×2 (10:00→20:22)
--- NOTE | 2016-01-24 10:56 | Physical Therapy Daily Note ---
PT Daily Note-Current Subjective Pt agrees to Rx but states she is so nauseous and dizzy today. States she will do as much as she can. Wants to take it slow. Pain Numeric Pain Scale: 0-No Pain Mental Status Patient Orientation: Normal For Age Attachments: PEG Tube Transfers Transfers (B, C, W/C) (FIM): 4 Scootin Rollin Supine to/from Sit: 5 Sit to/from Stand: 4 Bed to/from Chair: 4 needs skilled verbal instruction for sit to stand as well as SPTs and short walking distances to TRF w/c to bed and back etc. Pt. used FWW and was ataxic Gait Training Gait (FIM): 1 Distance (FIM): 1=up to 49 ft (10ft,5ftx3) Gait Level of Assist: 3 Gait Persons Needed: 1 Gait Assistive Device: FWW ataxic and fearful states " have you got me"? Wheelchair Training Wheelchair (FIM): 2 Wheelchair Distance: 3=280-28 ft (50,20x2) Wheelchair Level of Assist: 3 locks brakes indep with extended handles, needs assist to move chair around in tight area Exercises Supine Ex: Bridging, Ankle pumps, Quad Set, Rolling, Glut sets, Heel Slides, Short Arc Quads, Scooting, Straight leg raise, Hip abd/add Supine Reps: 12 Seated Therapy Exercises: Ankle pumps, Sit to stand, Long arc quads, Hip flexion Seated Reps: 12 NuStep Minutes: 10 NuStep Workload: 3 Treatments SPTs back and forth using FWW all required min to mod assist Assessment Current Status: Good Progress nausea and dizziness inhibit Rx this date. Pt. needed rest breaks but gave good effort PT Short Term Goals Short Term Goals Time Frame: Two Weeks Transfers (B,C,W/C) (FIM): 5 Gait (FIM): 1 Distance (FIM): 1=up to 49 ft Gait Distance Comment: 25' Gait Level of Assist: 3 Gait Assistive Device: FWW Wheelchair (FIM): 1 (achieved on 01/13/16) Wheelchair distance (FIM): 1=up to 49 ft Wheelchair Distance: 50 Wheelchair Level of Assist: 4 PT Halfway Goals Halfway Goals Time Frame: 4 wks Transfers (B,C,W/C) (FIM): 5 Gait (FIM): 1 Gait distance (FIM): 1=up to 49 ft Distance: 45' Gait Level of Assist: 4 Gait Assistive Device: FWW Stairs (FIM): 1 # of Steps: 4 Stairs Level Of Assist: 4 PT Plan Treatment/Plan Treatment Plan: Continue Plan of Care Treatment Plan: Bed Mobility, Education, Functional Activity Enrrique, Functional Strength, Group Therapy, Gait, Safety, Therapeutic Exercise, Transfers Treatment Duration: 4 wks Visits Per Week: 10-11 Minutes/Day (M-F): 60-90 Minutes/Day (Sat/M[place]): PRN Safety Risks/Education Patient Education: Gait Training, Transfer Techniques, Correct Positioning, W/ C Management, Disease Process, Safety Issues Teaching Recipient: Patient Teaching Methods: Demonstration, Discussion Response to Teaching: Verbalize Understanding, Return Demonstration, Reinforcement Needed Time/GCodes Time In: 930 Time Out: 1045 Total Billed Treatment Time: 75 Total Billed Treatment 1,EX25m,GT15m,FA20 G Codes Necessary: KATLIN Maynard RETIREMENT ADMINISTRATOR Jan 24, 2016 10:56
--- NOTE | 2016-01-24 13:49 | Occupational Ther Daily Note ---
OT Current Status-Daily Note Subjective Pt lying in bed. Pt stated feeling dizzy with nausea. Pt agreed to OT. Pt reported no pain. Appearance alert and cooperative Mental Status/Objective Functional [place] Measure 0=Not Assessed/NA 4=Minimal Assistance 1=Total Assistance 5=Supervision or Setup 2=Maximal Assistance 6=Modified [place] 3=Moderate Assistance 7=Complete [place] ADL-Treatment Toileting (FIM): 1 (One person to manage clothing and hygiene, one person to assist with standing, FWW. Pt was not incontinent) Toilet/Commode Transfer (FIM): 4 (Min assist, bed to BS, FWW. Cues for hand placement) Other Treatment 1/2 lb wrist weights used on each wrist for strengthening, endurance as needed for ADLs. 10-12 reps x 2 sets squeezes with yellow foam light oil operator, tabletop grasping activity x 5 reps each hand. Theraband yellow for shoulder, elbow 10- 12 reps. Active ROM with no resistance for shoulder on R, 1/2# on L. Elbow 10- 12 reps on L arm, 7-10 R. Pt had difficulty raising R arm through full range against gravity today. Pt left in bed with call light in hand. All needs were met, 4 rails up Education OT Patient Education: Exercise program, Purpose of tx/functional activities Teaching Recipient: Patient Teaching Methods: Demonstration Response to Teaching: Verbalize Understanding, Return Demonstration OT Short Term Goals Short Term Goals Time Frame: 2 weeks Lower Body Dressing(FIM): 4 Toileting(FIM): 4 Transfers (B,C,W/C) (FIM): 5 Toilet/Commode Transfer(FIM): 4 Shower Transfer(FIM): 5 1=Demonstrate adherence to instructed precautions during ADL tasks. 2=Patient will verbalize/demonstrate understanding of assistive devices/ modifications for ADL. 3=Patient will improve strength/tolerance for activity to enable patient to perform ADL's. OT Assisted Goals Assisted Goals Time Frame: 4 weeks Eating (FIM): 1 Grooming(FIM): 6 Bathing(FIM): 6 Upper Body Dressing(FIM): 6 Lower Body Dressing(FIM): 5 Toileting(FIM): 5 Transfers (B,C,W/C) (FIM): 5 Toilet/Commode Transfer(FIM): 5 Shower Transfer(FIM): 5 Comprehension(FIM): 6 Expression (FIM): 5 Social Interaction(FIM): 5 Problem Solving(FIM): 5 Memory(FIM): 5 Additional Goals: 2-Verbalize Understanding, 3-ImproveStrength/Enrrique 1=Demonstrate adherence to instructed precautions during ADL tasks. 2=Patient will verbalize/demonstrate understanding of assistive devices/ modifications for ADL. 3=Patient will improve strength/tolerance for activity to enable patient to perform ADL's. OT Education/Plan Problem List/Assessment Pt would benefit from skilled OT to increase her independence in basic self care to allow her to return home safely Discharge Recommendations Plan/Recommendations: Continue POC Treatment Plan/Plan of Care Patient would benefit from OT for education, treatment and training to promote independence in ADL's, mobility, safety and/or upper extremity function for ADL' s. Plan of Care: ADL Retraining, Caregiver Training, Functional Mobility, Orthotic Fitting/Training, UE Funct Exercise/Act, UE Neuromus Re-Ed/Coord Treatment Duration: 4 weeks Visits Per Week: 10-11 Minutes/Day (M-F): 75-90 Minutes/Day (Sat/Maddox): prn Agreement: Yes Rehab Potential: Guarded Time/GCodes Start Time: 11:20 Stop Time: 12:00 Total Time Billed (hr/min): 40 Billed Treatment Time visit ex 30 min, 10 minutes ADL KELLY ATKINS OT Jan 24, 2016 13:49
--- NOTE | 2016-01-24 14:01 | Occupational Ther Daily Note ---
OT Current Status-Daily Note Subjective Pt lying in bed. Pt stated she was feeling better not experiencing any dizziness. Pt agreed to OT. Appearance alert and cooperative Mental Status/Objective Functional [place] Measure 0=Not Assessed/NA 4=Minimal Assistance 1=Total Assistance 5=Supervision or Setup 2=Maximal Assistance 6=Modified [place] 3=Moderate Assistance 7=Complete [place] ADL-Treatment Transfers (B, C, W/C) (FIM): 5 (Verbal cues needed for hand placement, FWW, w/c ) Other Treatment Pt transported to gym per w/c. Pt used arm bike for strengthening 10 min at 10W , with three brief recovery periods. Pt worked with 1" multi-colored pegs for hand and pincer coordination (2 sets) on each hand. Pt transported back to room and transferred, min assist, FWW. Left in bed with call light, 4 rails up. All needs met. Education OT Patient Education: Exercise program, Progress toward Goal/Update tx plan, Purpose of tx/functional activities Teaching Recipient: Patient Teaching Methods: Demonstration Response to Teaching: Verbalize Understanding OT Short Term Goals Short Term Goals Time Frame: 2 weeks Lower Body Dressing(FIM): 4 Toileting(FIM): 4 Transfers (B,C,W/C) (FIM): 5 Toilet/Commode Transfer(FIM): 4 Shower Transfer(FIM): 5 1=Demonstrate adherence to instructed precautions during ADL tasks. 2=Patient will verbalize/demonstrate understanding of assistive devices/ modifications for ADL. 3=Patient will improve strength/tolerance for activity to enable patient to perform ADL's. OT Fire Inspector Goals Fdc Goals Time Frame: 4 weeks Eating (FIM): 1 Grooming(FIM): 6 Bathing(FIM): 6 Upper Body Dressing(FIM): 6 Lower Body Dressing(FIM): 5 Toileting(FIM): 5 Transfers (B,C,W/C) (FIM): 5 Toilet/Commode Transfer(FIM): 5 Shower Transfer(FIM): 5 Comprehension(FIM): 6 Expression (FIM): 5 Social Interaction(FIM): 5 Problem Solving(FIM): 5 Memory(FIM): 5 Additional Goals: 2-Verbalize Understanding, 3-ImproveStrength/Enrrique 1=Demonstrate adherence to instructed precautions during ADL tasks. 2=Patient will verbalize/demonstrate understanding of assistive devices/ modifications for ADL. 3=Patient will improve strength/tolerance for activity to enable patient to perform ADL's. OT Education/Plan Problem List/Assessment Pt would benefit from skilled OT to increase her independence in basic self care to allow her to return home safely Discharge Recommendations Plan/Recommendations: Continue POC Treatment Plan/Plan of Care Patient would benefit from OT for education, treatment and training to promote independence in ADL's, mobility, safety and/or upper extremity function for ADL' s. Plan of Care: ADL Retraining, Caregiver Training, Functional Mobility, Orthotic Fitting/Training, UE Funct Exercise/Act, UE Neuromus Re-Ed/Coord Treatment Duration: 4 weeks Visits Per Week: 10-11 Minutes/Day (M-F): 75-90 Minutes/Day (Sat/Maddox): prn Agreement: Yes Rehab Potential: Guarded Time/GCodes Start Time: 13:05 Stop Time: 13:40 Total Time Billed (hr/min): 35 Billed Treatment Time visit ex 35 min KELLY ATKINS OT Jan 24, 2016 14:01
--- NOTE | 2016-01-24 16:46 | Progress Note (SOAP) ---
Subjective Subjective/Events-last exam Patient continues to report copious amounts of phlegm. Otherwise she has been doing well. Objective Exam Vital Signs Date Time Temp Pulse Resp B/P Pulse Ox O2 Delivery O2 Flow Rate FiO2 01/24/16 15:44 90 Room Air 01/24/16 08:00 Room Air 01/24/16 04:16 98.4 93 16 100/66 92 Room Air 01/24/16 02:12 Room Air 01/23/16 21:45 Room Air 01/23/16 20:06 92 Room Air 01/23/16 20:00 Room Air 01/23/16 18:10 97.8 91 20 112/77 91 Room Air I & O 01/24/16 07:00 Intake Total 1906 ml Balance 1906 ml Capillary Refill : General Appearance: Chronically ill HEENT: PERRL/EOMI Other (tracheostomy in place) Neck: Non Tender Supple Respiratory: Crackles Cardiovascular: Regular Rate, Rhythm Gastrointestinal: normal bowel sounds non tender other (feeding tube in place) Neurologic/Psychiatric: Alert Oriented x3 Motor Weakness Results Lab Laboratory Tests 01/24/16 06:30: Alanine Aminotransferase (ALT/SGPT) 22, Albumin 3.4, Alkaline Phosphatase 90, Anion Gap 10, Aspartate Amino Transf (AST/SGOT) 19, BUN/Creatinine Ratio 16, Basophils # (Auto) 0.0, Basophils (%) (Auto) 0, Blood Urea Nitrogen 9, Calcium Level 9.4, Carbon Dioxide Level 27, Chloride Level 101, Creatinine 0.55L, Eosinophils # (Auto) 0.0, Eosinophils (%) (Auto) 0, Estimat Glomerular Filtration Rate > 60, Glucose Level 109H, Hematocrit 35, Hemoglobin 10.9L, Lymphocytes # (Auto) 0.9L, Lymphocytes (%) (Auto) 9L, Mean Corpuscular Hemoglobin 29, Mean Corpuscular Hemoglobin Concent 31L, Mean Corpuscular Volume 94, Mean Platelet Volume 8.7, Monocytes # (Auto) 1.3H, Monocytes (%) (Auto) 13H , Neutrophils # (Auto) 7.7, Neutrophils (%) (Auto) 78H, Platelet Count 291, Potassium Level 3.9, Red Blood Count 3.71L, Red Cell Distribution Width 17.1H, Sodium Level 138, Total Bilirubin 0.3, Total Protein 6.2L, White Blood Count 9.9 Microbiology 01/15/16 Gram Stain - Final, Complete 01/15/16 Sputum Culture - Final, Complete Pseudomonas Aeruginosa Klebsiella Pneumoniae Meds Current Medications Medications Dose Ordered Sig/Nadeem Route PRN Reason Start Time Stop Time Status Last Admin Dose Admin Cefepime HCl/ Sodium Chloride 50 ml @ 100 mls/hr BID IV 01/24/16 21:00 02/04/16 09:29 Assessment/Plan Assessment/Plan Assess & Plan/Chief Complaint 1. Recurrent Pseudomonas pneumonia--bilateral upper lobes--patient is receiving IV levofloxacin which should be continued for a minimum of 14 days. I requested that IV cefepime the restarted in this complex medical patient with hospital-acquired pneumonia, history of metastatic cancer, and recurrent Pseudomonas pneumonia resistant to gentamicin and Zosyn but sensitive to both ciprofloxacin and cefepime. 2. Symptomatic anemia-check iron studies, vitamin B-12, folate and transfuse 2 units packed RBCs. 3. History of brain metastasis, status post resection at [facility] October 2015--Whole brain radiation completed on 01/04/16; a. Decadron has been tapered off. 4. Right breast cancer-infiltrating mammary cancer T2 N3b M0, Stage IIIC poorly differentiated high-grade ER 40 percent , MO negative Ki-67, 20 percent HER-2/linda 3+ positive, luminal B subtype; adjuvant chemotherapy, radiation and 1 year of trastuzumab completed on 09/14/15. a. Faslodex 500mg day 1 has been given on 12/22/15; b. Faslodex 500 mg day 15 given on 01/05/16 and day 29 (+1) was given 01/20/16; Next dose due in 4 weeks; 5. Vocal cord paralysis/dysphagia--patient has JPEG feeding tube and gastroscopy lumen is being used; a. Barium swallow done 01/04/16 positive for aspiration; b. Dr Mathias/Dr Muro to arrange possible replacement of feeding tube;tube is tentatively scheduled to be replaced on Sunday01/25/16 6. Debility--patient is receiving PT and OT to optimize functional status Diagnosis/Problems: Clinical Quality Measures DVT/VTE Risk/Contraindication: Risk Factor Score Per Nursin RFS Level Per Nursing on Admit: 4+=Very High ONESIMO HUFFMAN MD Jan 24, 2016 16:46
[2016-01-24] MEDS: APAP 325 MG/10.15 ML LIQ (TYLENOL) UDC JT PRN ×2 (16:56→21:37)
[2016-01-24] MEDS: ENOXAPARIN 40 MG/0.4 ML (LOVENOX) SYR SC SCH (16:57)
[2016-01-24 18:12] VITALS: BP 99/64
--- NOTE | 2016-01-24 19:54 | PM & R (SOAP) Progress Note ---
Subjective Subjective/Events-last exam Patient was seen in her room this evening Having less secretions and less nausea. Patient SBA to [facility] assist for transfers. Objective Exam Last Set of Vital Signs Vital Signs Date Time Temp Pulse Resp B/P Pulse Ox O2 Delivery O2 Flow Rate FiO2 01/24/16 18:12 98.2 87 20 99/64 95 Trach Collar 01/20/16 16:07 21 Capillary Refill : I&O Intake and Output 01/24/16 00:00 Intake Total 2030 ml Output Total 800 ml Balance 1230 ml Intake Oral 0 ml IV Total 150 ml Tube Feeding 980 ml Other 900 ml Urine/Stool Mix 800 ml # Voids 4 # Bowel Movements 1 General: Alert, Oriented X3, Cooperative, No Acute Distress HEENT: Atraumatic, PERRLA, EOMI, Mucous Memb Moist/[place] Neck: Other (Trach functioning) Lungs: Clear to Auscultation Heart: Regular Rate Abdomen: Normal Bowel Sounds, Soft, No Tenderness, Other (feeding tube in place ) Extremities: No Edema Neuro: Other (generalized weakness) Results Lab Laboratory Tests 01/24/16 06:30: Alanine Aminotransferase (ALT/SGPT) 22, Albumin 3.4, Alkaline Phosphatase 90, Anion Gap 10, Aspartate Amino Transf (AST/SGOT) 19, BUN/Creatinine Ratio 16, Basophils # (Auto) 0.0, Basophils (%) (Auto) 0, Blood Urea Nitrogen 9, Calcium Level 9.4, Carbon Dioxide Level 27, Chloride Level 101, Creatinine 0.55L, Eosinophils # (Auto) 0.0, Eosinophils (%) (Auto) 0, Estimat Glomerular Filtration Rate > 60, Glucose Level 109H, Hematocrit 35, Hemoglobin 10.9L, Lymphocytes # (Auto) 0.9L, Lymphocytes (%) (Auto) 9L, Mean Corpuscular Hemoglobin 29, Mean Corpuscular Hemoglobin Concent 31L, Mean Corpuscular Volume 94, Mean Platelet Volume 8.7, Monocytes # (Auto) 1.3H, Monocytes (%) (Auto) 13H , Neutrophils # (Auto) 7.7, Neutrophils (%) (Auto) 78H, Platelet Count 291, Potassium Level 3.9, Red Blood Count 3.71L, Red Cell Distribution Width 17.1H, Sodium Level 138, Total Bilirubin 0.3, Total Protein 6.2L, White Blood Count 9.9 Microbiology 01/15/16 Gram Stain - Final, Complete 01/15/16 Sputum Culture - Final, Complete Pseudomonas Aeruginosa Klebsiella Pneumoniae Assessment/Plan Assessment S/P crani and removal Met lesion from breast ca Dysphagia NPO on tube feeds S/P trach on trac collar at night and with PMV during day S/P Radiation Therapy course while on Swing bed anemia s/p transfusion 2 unis PRBCS intermittent nausea felt to be ralted to meds-Zofran scheduled Diarrhea multifactorial Lomotil and Benefiber on Board-improving Recuurent pneumonia due to Vocal cord paralysis and sectretions to complete course of IV antibiotics Plan Continue PT/OT/ST Appreciate their notes and Specialists notes., Oral Thrush treated- Nystatin d/cd earlier this week Team Conference held 01-19-16-See report for full functional update and POC and ELOS Discharge now set tentatively for later this week Will f/u re details with SW Current labs noted UZMA VILLALOBOS MD Jan 24, 2016 19:54
[2016-01-24] MEDS: CEFEPIME INJECTION 2,000 MG in NORMAL SALINE (BAXTER MINI) 50 ML IV SCH (21:36)
[2016-01-25] MEDS: RT-ALBUTEROL/IPRATROPIUM 3 ML (DUONEB) VIAL INH SCH ×4 (02:35→20:48)
[2016-01-25 04:54] VITALS: BP 123/75
[2016-01-25] MEDS: METOCLOPRAMIDE 10MG/10ML ORAL SOL(REGLAN) UDC PO SCH ×4 (06:06→21:52)
[2016-01-25] MEDS: ONDANSETRON 4 MG/2 ML (SDV) Z0FRAN IVP SCH ×4 (06:06→23:23)
[2016-01-25] MEDS: LEVOFLOXACIN 750 MG/150 ML IV 150 ML IV SCH (06:25)
--- NOTE | 2016-01-25 07:34 | Pulmonary Progress Note ---
Exam Exam Vital Signs Date Time Temp Pulse Resp B/P Pulse Ox O2 Delivery O2 Flow Rate FiO2 01/25/16 04:54 97.4 104 16 123/75 93 Room Air 01/25/16 02:36 93 Room Air 01/24/16 20:18 92 Room Air 01/24/16 20:00 Room Air 01/24/16 18:12 98.2 87 20 99/64 95 Trach Collar 01/24/16 15:44 90 Room Air 01/24/16 08:00 Room Air I & O 01/25/16 07:00 Intake Total 1731 ml Output Total 640 ml Balance 1091 ml HEENT: Other (tracheostomy in place) Neck: Non Tender Supple Respiratory: Crackles Cardiovascular: Regular Rate, Rhythm Gastrointestinal: normal bowel sounds non tender other (feeding tube in place) Extremity: No Pedal Edema Neurologic/Psychiatric: Alert Oriented x3 Motor Weakness Skin: Warm/Dry Lymphatic: No Adenopathy Results Lab Laboratory Tests 01/24/16 06:30 Clinical Quality Measures DVT/VTE Risk/Contraindication: Risk Factor Score Per Nursin RFS Level Per Nursing on Admit: 4+=Very High CAROLYN CRAWFORD DO Jan 25, 2016 07:34 -SVNs -Suction PRN s/p Pseudomonus pneumonia - Continue IV Levaquin X 14 days -I am going to sign off since Dr. Bardales is managing pulmonary status. Nausea -probably secondary to TF -Have dietary evaluate TF Clinical Quality Measures DVT/VTE Risk/Contraindication: Risk Factor Score Per Nursin RFS Level Per Nursing on Admit: 4+=Very High CAROLYN CRAWFORD DO Jan 25, 2016 07:34
--- NOTE | 2016-01-25 07:36 | Pulmonary Progress Note ---
Standard Progress Note Progress Notes Assessment & Plan Metastatic breast CA to posterior brain s/p crani and resection OSH S/p mechanical ventilation for respiratory failure and vocal cord paralysis s/p tracheostomy -Cap trach during day -SVNs -Suction PRN s/p Pseudomonus pneumonia - Continue IV Levaquin X 14 days -I am going to sign off since Dr. Bardales is managing pulmonary status. Nausea -probably secondary to TF -Have dietary evaluate TF CAROLYN CRAWFORD DO Jan 25, 2016 07:35
[2016-01-25] MEDS: MAGNESIUM OXIDE (MAG-OX)400 MG TAB JT SCH ×2 (08:37→17:01)
[2016-01-25] MEDS: LACTOBACILLUS Acidoph/Bulgar (LACTINEX/FLORANEX) TAB JT SCH ×4 (08:37→21:52)
[2016-01-25] MEDS: guaiFENesin SYRUP 100 MG/5 ML 10 ML (ROBITUSSIN SF) JT SCH ×4 (08:37→21:52)
[2016-01-25] MEDS: BENEFIBER (FROM DIETARY) DOCUMENTATION PURPOSE ONLY PO SCH ×3 (08:37→21:53)
[2016-01-25] MEDS: FAMOTIDINE 20 MG (PEPCID) TABLET JT SCH ×2 (08:37→21:52)
[2016-01-25] MEDS: CEFEPIME INJECTION 2,000 MG in NORMAL SALINE (BAXTER MINI) 50 ML IV SCH ×2 (08:37→21:52)
[2016-01-25] MEDS: DIPHENOXYLATE/ATROPINE 2.5MG/0.025MG (LOMOTIL) TAB JT SCH ×2 (08:37→21:52)
--- NOTE | 2016-01-25 08:46 | Physical Therapy Daily Note ---
PT Daily Note-Current Subjective Pt. in bed upon arrival. Nursing present as pt. had had incont of BM in brief in bed. This MASTER FISHER relieved nursing . Pt. c/o many times this Rx of nausea and dizziness. Pt. states the 2 go together for her. Mental Status Patient Orientation: Normal For Age Attachments: PEG Tube, IV Transfers Transfers (B, C, W/C) (FIM): 4 Scootin Rollin Supine to/from Sit: 4 Sit to/from Stand: 4 Bed to/from Chair: 4 dance fashion SPT TRFs and min sit to stands Gait Training Gait (FIM): 1 Distance (FIM): 1=up to 49 ft (10ft, 5 ft) Gait Level of Assist: 4 Gait Persons Needed: 1 Gait Assistive Device: FWW needs w/c right behind her , pt. is very insecure/fearful Wheelchair Training Wheelchair (FIM): 3 Wheelchair Distance: 3=484-60 ft (50ftx3) Wheelchair Level of Assist: 3 manages brakes indep, needs much education and instruction for w/c uses feet and hands to propel Exercises Supine Ex: Bridging, Ankle pumps, Quad Set, Rolling, Glut sets, Lower trunk rotation, Heel Slides, Short Arc Quads, Scooting, Straight leg raise, Hip abd/ add Supine Reps: 15 Seated Therapy Exercises: Ankle pumps, Sit to stand, Long arc quads, Hip flexion Seated Reps: 10 NuStep Minutes: 10 NuStep Workload: 1 Treatments sit to stands at parallel bars and at BS. This MASTER FISHER explaining and demonstrating during toileting that at this point it takes 2 people to toilet as it was quite work intensive for pt. to clean herself (pt. only manages this effectively in front, needs assist for after BM) and pt. only able to pull slacks up on left left side and needs help on right. This MASTER FISHER explained to pt. that this could be quite burdensome for family jennyfer if pt. was having a "bad day ' (weaker) Assessment Current Status: Fair Progress nausea and dizziness limits pt at times , needs many rest breaks and declines to sit after Rx. This MASTER FISHER explaining that she may have less problem with dizziness if she could acommodate to sitting. Pt. declines PT Short Term Goals Short Term Goals Time Frame: Two Weeks Transfers (B,C,W/C) (FIM): 5 Gait (FIM): 1 Distance (FIM): 1=up to 49 ft Gait Distance Comment: 25' Gait Level of Assist: 3 Gait Assistive Device: FWW Wheelchair (FIM): 1 (achieved on 01/13/16) Wheelchair distance (FIM): 1=up to 49 ft Wheelchair Distance: 50 Wheelchair Level of Assist: 4 PT Residential Goals Residential Goals Time Frame: 4 wks Transfers (B,C,W/C) (FIM): 5 Gait (FIM): 1 Gait distance (FIM): 1=up to 49 ft Distance: 45' Gait Level of Assist: 4 Gait Assistive Device: FWW Stairs (FIM): 1 # of Steps: 4 Stairs Level Of Assist: 4 PT Plan Treatment/Plan Treatment Plan: Continue Plan of Care Treatment Plan: Bed Mobility, Education, Functional Activity Enrrique, Functional Strength, Group Therapy, Gait, Safety, Therapeutic Exercise, Transfers Treatment Duration: 4 wks Visits Per Week: 10-11 Minutes/Day (M-F): 60-90 Minutes/Day (Sat/[place]): PRN Safety Risks/Education Patient Education: Gait Training, Transfer Techniques, Correct Positioning, W/ C Management, Safety Issues Teaching Recipient: Patient Teaching Methods: Demonstration, Discussion Response to Teaching: Verbalize Understanding, Return Demonstration, Reinforcement Needed Time/GCodes Time In: 725 Time Out: 845 Total Billed Treatment Time: 80 Total Billed Treatment 1, FA45m,EX35 G Codes Necessary: KATLIN Maynard MASTER FISHER Jan 25, 2016 08:46
[2016-01-25] MEDS: aCETylcysteine 20% (MUCOMYST) 30ML SOLN VIAL INH SCH ×2 (09:57→20:48)
--- NOTE | 2016-01-25 10:58 | Occupational Ther Daily Note ---
OT Current Status-Daily Note Subjective Pt alert, lying in bed. Pt stated that she is tired today and nauseous. Pt agreed with therapy. Mental Status/Objective Patient Orientation: Person, Place, Time, Situation Functional [place] Measure 0=Not Assessed/NA 4=Minimal Assistance 1=Total Assistance 5=Supervision or Setup 2=Maximal Assistance 6=Modified [place] 3=Moderate Assistance 7=Complete [place] ADL-Treatment Pt agreed to a sponge bath. Min A for going from supine to sitting EOB. Pt able to sit EOB by self. Pt required assistance to doff shirt then was able to bathe upper body after set up. Pt stated that she didn't need to bathe lower body at this time. Pt required assistance to don shirt, fatigue and decreased ROM. Pt stated that she had already brushed her teeth. Pt then was able to brush front and side of hair, did not reach back of head. Pt agreed to sit in w/ c after bathing. Respiratory came in to give pt treatment and check O2 sats, low sats then respiratory applied O2 to pt to increase O2. Then completed grasping exercises with therapy foam. Pt was able to complete UE functional activities, WFL. Pt took increased time to complete activities and tasks due to decreased activity tolerance and nausea. After therapy, pt sitting in w/c with O2 in place. Call light/phone in reach. All needs met in room. Upper Body (FIM): 4 Transfers (B, C, W/C) (FIM): 4 OT Short Term Goals Short Term Goals Time Frame: 2 weeks Lower Body Dressing(FIM): 4 Toileting(FIM): 4 Transfers (B,C,W/C) (FIM): 5 Toilet/Commode Transfer(FIM): 4 Shower Transfer(FIM): 5 1=Demonstrate adherence to instructed precautions during ADL tasks. 2=Patient will verbalize/demonstrate understanding of assistive devices/ modifications for ADL. 3=Patient will improve strength/tolerance for activity to enable patient to perform ADL's. OT Alf Goals Alf Goals Time Frame: 4 weeks Eating (FIM): 1 Grooming(FIM): 6 Bathing(FIM): 6 Upper Body Dressing(FIM): 6 Lower Body Dressing(FIM): 5 Toileting(FIM): 5 Transfers (B,C,W/C) (FIM): 5 Toilet/Commode Transfer(FIM): 5 Shower Transfer(FIM): 5 Comprehension(FIM): 6 Expression (FIM): 5 Social Interaction(FIM): 5 Problem Solving(FIM): 5 Memory(FIM): 5 Additional Goals: 2-Verbalize Understanding, 3-ImproveStrength/Enrrique 1=Demonstrate adherence to instructed precautions during ADL tasks. 2=Patient will verbalize/demonstrate understanding of assistive devices/ modifications for ADL. 3=Patient will improve strength/tolerance for activity to enable patient to perform ADL's. OT Education/Plan Problem List/Assessment Pt would benefit from skilled OT to increase her independence in basic self care to allow her to return home safely Discharge Recommendations Plan/Recommendations: Continue POC Treatment Plan/Plan of Care Patient would benefit from OT for education, treatment and training to promote independence in ADL's, mobility, safety and/or upper extremity function for ADL' s. Plan of Care: ADL Retraining, Caregiver Training, Functional Mobility, Orthotic Fitting/Training, UE Funct Exercise/Act, UE Neuromus Re-Ed/Coord Treatment Duration: 4 weeks Visits Per Week: 10-11 Minutes/Day (M-F): 75-90 Minutes/Day (Sat/[place]): prn Agreement: Yes Rehab Potential: Guarded Time/GCodes Start Time: 09:30 Stop Time: 11:00 Total Time Billed (hr/min): 90 Billed Treatment Time 1 visit-ADL 3 (45 min) FA 3 (45 min) HUMBERTO LUNA Jan 25, 2016 10:58
--- NOTE | 2016-01-25 11:23 | Physical Therapy Daily Note ---
PT Daily Note-Current Subjective OT reports pt. is now on O2 as RT found pt. at 86% O2 sats. Nursing reports pt. coughed up emesis that appeared to be tube feeding substance. Pt. in chair upon arrival and requests to go to bed Pain Numeric Pain Scale: 0-No Pain Mental Status Attachments: Oxygen, PEG Tube Transfers sit to stand and SPT to bed Mod to min assist, pt sat EOB for 3mins, TRFd sit to sup SBA Exercises Supine Ex: Ankle pumps, Rolling, Heel Slides, Hip abd/add Supine Reps: 10 Assessment Current Status: Fair Progress PT Short Term Goals Short Term Goals Transfers (B,C,W/C) (FIM): 5 Gait (FIM): 1 Distance (FIM): 1=up to 49 ft Gait Distance Comment: 25' Gait Level of Assist: 3 Gait Assistive Device: FWW Wheelchair (FIM): 1 (achieved on 01/13/16) Wheelchair distance (FIM): 1=up to 49 ft Wheelchair Distance: 50 Wheelchair Level of Assist: 4 PT [employer] Journeyman Goals Mcfp Goals Time Frame: 4 wks Transfers (B,C,W/C) (FIM): 5 Gait (FIM): 1 Gait distance (FIM): 1=up to 49 ft Distance: 45' Gait Level of Assist: 4 Gait Assistive Device: FWW Stairs (FIM): 1 # of Steps: 4 Stairs Level Of Assist: 4 PT Plan Treatment/Plan Treatment Plan: Continue Plan of Care Treatment Plan: Bed Mobility, Education, Functional Activity Enrrique, Functional Strength, Group Therapy, Gait, Safety, Therapeutic Exercise, Transfers Treatment Duration: 4 wks Visits Per Week: 10-11 Minutes/Day (M-F): 60-90 Minutes/Day (Sat/[place]): PRN Safety Risks/Education Patient Education: Transfer Techniques, Correct Positioning, Safety Issues Teaching Recipient: Patient Teaching Methods: Demonstration, Discussion Response to Teaching: Verbalize Understanding, Return Demonstration, Reinforcement Needed Time/GCodes Time In: 1105 Time Out: 1125 Total Billed Treatment Time: 20 Total Billed Treatment 1,FA20m G Codes Necessary: KATLIN Maynard FOUNDRY HAND Jan 25, 2016 11:23
--- NOTE | 2016-01-25 11:41 | PM & R (SOAP) Progress Note ---
Subjective Subjective/Events-last exam Patient was seen in her room this AM Patient up in chair in NAD but C/O persistent nausea.RN reports that tube feeds held and patient to have replacement of feeding tube tomorrow with Interventional Radiology.RN reports that O2 sats are dropping after Suctioning fron Trach site revealed possible Tube feedings.Patient min to mod assist for transfers Review of Systems Pulmonary: Dyspnea Gastrointestinal: : Nausea Objective Exam Last Set of Vital Signs Vital Signs Date Time Temp Pulse Resp B/P Pulse Ox O2 Delivery O2 Flow Rate FiO2 01/25/16 10:00 86 Room Air 01/25/16 04:54 97.4 104 16 123/75 01/20/16 16:07 21 Capillary Refill : I&O Intake and Output 01/25/16 00:00 Intake Total 1612 ml Output Total 540 ml Balance 1072 ml Intake Oral 0 ml IV Total 200 ml Tube Feeding 1012 ml Other 400 ml Output Urine Total 540 ml # Voids 3 # Bowel Movements 1 General: Alert, Oriented X3, Cooperative, No Acute Distress HEENT: Atraumatic, PERRLA, EOMI, Mucous Memb Moist/[place] Neck: Other (Trach functioning) Lungs: Clear to Auscultation Heart: Regular Rate Abdomen: Normal Bowel Sounds, Soft, No Tenderness, Other (feeding tube in place ) Extremities: No Edema Neuro: Other (generalized weakness) Results Lab Laboratory Tests 01/24/16 06:30: Alanine Aminotransferase (ALT/SGPT) 22, Albumin 3.4, Alkaline Phosphatase 90, Anion Gap 10, Aspartate Amino Transf (AST/SGOT) 19, BUN/Creatinine Ratio 16, Basophils # (Auto) 0.0, Basophils (%) (Auto) 0, Blood Urea Nitrogen 9, Calcium Level 9.4, Carbon Dioxide Level 27, Chloride Level 101, Creatinine 0.55L, Eosinophils # (Auto) 0.0, Eosinophils (%) (Auto) 0, Estimat Glomerular Filtration Rate > 60, Glucose Level 109H, Hematocrit 35, Hemoglobin 10.9L, Lymphocytes # (Auto) 0.9L, Lymphocytes (%) (Auto) 9L, Mean Corpuscular Hemoglobin 29, Mean Corpuscular Hemoglobin Concent 31L, Mean Corpuscular Volume 94, Mean Platelet Volume 8.7, Monocytes # (Auto) 1.3H, Monocytes (%) (Auto) 13H , Neutrophils # (Auto) 7.7, Neutrophils (%) (Auto) 78H, Platelet Count 291, Potassium Level 3.9, Red Blood Count 3.71L, Red Cell Distribution Width 17.1H, Sodium Level 138, Total Bilirubin 0.3, Total Protein 6.2L, White Blood Count 9.9 Microbiology 01/15/16 Gram Stain - Final, Complete 01/15/16 Sputum Culture - Final, Complete Pseudomonas Aeruginosa Klebsiella Pneumoniae Assessment/Plan Assessment S/P crani and removal Met lesion from breast ca Dysphagia NPO on tube feeds S/P trach on trach collar at night and with PMV during day-now with o2 by trach collar to maintain sats S/P Radiation Therapy course while on Swing bed anemia s/p transfusion 2 unis PRBCS intermittent nausea felt to be ralted to meds-Zofran scheduled Diarrhea multifactorial Lomotil and Benefiber on Board-improving Recuurent pneumonia due to Vocal cord paralysis and secrtretions to complete course of IV antibiotics Probable aspiration of Tube feeds Plan Continue PT/OT/ST Appreciate their notes and Specialists notes., Oral Thrush treated- Nystatin d/cd earlier during stay Discharge was set tentatively for later this week but this now appears to be in question Will f/u re details with SW Current labs noted F/U with DR Bardales and Stew and Bhaskar ( Interventional Radiology) UZMA VILLALOBOS MD Jan 25, 2016 11:41
[2016-01-25] MEDS: APAP 325 MG/10.15 ML LIQ (TYLENOL) UDC JT PRN ×3 (12:31→23:28)
--- NOTE | 2016-01-25 15:21 | Diagnostic Imaging Report ---
EXAM: Postoperative radiograph of the chest. INDICATION: Question of aspiration. COMPARISON: 01/16/2016. FINDINGS: Tracheostomy tube is in place. There is a right internal jugular venous line with the tip at the mid SVC level. The lungs demonstrate findings similar to the previous exam. There is no focal airspace opacity, however. A right breast prosthesis is seen. Surgical clips over the right chest are noted. IMPRESSION: Diffuse interstitial thickening. No basilar consolidation to suggest aspiration. Dictated by: Dictated on workstation # [id number]
[2016-01-25] MEDS: ENOXAPARIN 40 MG/0.4 ML (LOVENOX) SYR SC SCH (17:00)
--- NOTE | 2016-01-25 17:02 | Progress Note (SOAP) ---
Subjective Subjective/Events-last exam Patient states sputum less than yesterday; Nursing staff relate that respiratory team describes patient coughing out sputum mixed with tube feedings ; I have emphasized the need to keep your bed elevated greater than 30 at all times. Objective Exam Vital Signs Date Time Temp Pulse Resp B/P Pulse Ox O2 Delivery O2 Flow Rate FiO2 01/25/16 16:28 92 Room Air 01/25/16 10:00 86 Room Air 01/25/16 08:00 Room Air 01/25/16 04:54 97.4 104 16 123/75 93 Room Air 01/25/16 02:36 93 Room Air 01/24/16 20:18 92 Room Air 01/24/16 20:00 Room Air 01/24/16 18:12 98.2 87 20 99/64 95 Trach Collar I & O 01/25/16 07:00 Intake Total 1731 ml Output Total 640 ml Balance 1091 ml Capillary Refill : General Appearance: No Apparent Distress Thin (Capped tracheostomy tube in place;) HEENT: PERRL/EOMI Neck: Non Tender Supple Respiratory: Crackles Cardiovascular: Regular Rate, Rhythm Gastrointestinal: normal bowel sounds non tender soft (JPEG tube in place;) Neurologic/Psychiatric: Alert Oriented x3 Motor Weakness Results Lab Microbiology 01/15/16 Gram Stain - Final, Complete 01/15/16 Sputum Culture - Final, Complete Pseudomonas Aeruginosa Klebsiella Pneumoniae Assessment/Plan Assessment/Plan Assess & Plan/Chief Complaint 1. Recurrent Pseudomonas pneumonia--bilateral upper lobes--patient is receiving IV levofloxacin which should be continued for a minimum of 14 days. I requested that IV cefepime be restarted in this complex medical patient with hospital-acquired pneumonia, history of metastatic cancer, and recurrent Pseudomonas pneumonia resistant to gentamicin and Zosyn but sensitive to both ciprofloxacin and cefepime. a. Although the current Pseudomonas culture shows sensitivity to Ciprofloxacin, the initial Pseudomonas strain cultured from her sputum was only intermediate to Ciprofloxacin; 2. Symptomatic anemia-check iron studies, vitamin B-12, folate and transfuse 2 units packed RBCs. 3. History of brain metastasis, status post resection at [facility] October 2015--Whole brain radiation completed on 01/04/16; a. Decadron has been tapered off. 4. Right breast cancer-infiltrating mammary cancer T2 N3b M0, Stage IIIC poorly differentiated high-grade ER 40 percent , RI negative Ki-67, 20 percent HER-2/linda 3+ positive, luminal B subtype; adjuvant chemotherapy, radiation and 1 year of trastuzumab completed on 09/14/15. a. Faslodex 500mg day 1 has been given on 12/22/15; b. Faslodex 500 mg day 15 given on 01/05/16 and day 29 (+1) was given 01/20/16; Next dose due in 4 weeks; 5. Vocal cord paralysis/dysphagia--patient has JPEG feeding tube and gastroscopy lumen is being used; a. Barium swallow done 01/04/16 positive for aspiration; b. Dr Mathias/Dr Muro to arrange possible replacement of feeding tube;tube is tentatively scheduled to be replaced on Sunday01/25/16 6. Debility--patient is receiving PT and OT to optimize functional status Diagnosis/Problems: Clinical Quality Measures DVT/VTE Risk/Contraindication: Risk Factor Score Per Nursin RFS Level Per Nursing on Admit: 4+=Very High ONESIMO HUFFMAN MD Jan 25, 2016 17:02
[2016-01-25 18:28] VITALS: BP 132/72
[2016-01-25] MEDS ORDERED: IBUPROFEN SUSP 100MG/5ML (MOTRIN) UDC PO PRN (22:30)
[2016-01-25 22:56] LABS: RED BLOOD COUNT 3.73 10^6/uL (4.35-5.85); RED CELL DISTRIBUTION WIDTH 16.9 % (10.0-14.5); WHITE BLOOD COUNT 16.7 10^3/uL (4.3-11.0)
[2016-01-26 03:02] LABS: BILIRUBIN,URINE NEGATIVE (NEGATIVE); KETONES,URINE NEGATIVE (NEGATIVE); LEUKOCYTE ESTERASE ,URINE NEGATIVE (NEGATIVE); NITRITE,URINE NEGATIVE (NEGATIVE); PH,URINE 6 (5-9); PROTEIN,URINE NEGATIVE (NEGATIVE); UROBILINOGEN,URINE NORMAL (NORMAL)
[2016-01-26 03:11] LABS: SQUAMOUS EPITHELIAL CELL,UR 0-2 /HPF; WBC,URINE 0-2 /HPF
[2016-01-26] MEDS: RT-ALBUTEROL/IPRATROPIUM 3 ML (DUONEB) VIAL INH SCH ×4 (03:31→21:18)
[2016-01-26 05:09] VITALS: BP 95/58
[2016-01-26] MEDS: METOCLOPRAMIDE 10MG/10ML ORAL SOL(REGLAN) UDC PO SCH ×4 (06:31→22:12)
[2016-01-26] MEDS: ONDANSETRON 4 MG/2 ML (SDV) Z0FRAN IVP SCH ×3 (06:31→17:30)
[2016-01-26] MEDS: LEVOFLOXACIN 750 MG/150 ML IV 150 ML IV SCH (06:31)
[2016-01-26] MEDS: aCETylcysteine 20% (MUCOMYST) 30ML SOLN VIAL INH SCH ×2 (06:57→21:00)
[2016-01-26 07:08] LABS: MEAN PLATELET VOLUME 8.3 FL (7.4-10.4); RED BLOOD COUNT 3.35 10^6/uL (4.35-5.85); RED CELL DISTRIBUTION WIDTH 17.1 % (10.0-14.5); WHITE BLOOD COUNT 14.8 10^3/uL (4.3-11.0)
--- NOTE | 2016-01-26 07:11 | Diagnostic Imaging Report ---
INDICATION: Febrile. Comparison with 01/25/2016. FINDINGS: Tracheostomy tube is again noted in good position. Right central line is present unchanged in good position. There is a volume tire spotter noted in the right breast. Lungs are well-aerated. There is suggestion of mild alveolar infiltrate developing in the left lung base when compared with previous exam. No evidence of pneumothorax or pleural effusions. The heart is not enlarged. IMPRESSION: 1. Findings are suggestive of developing pneumonia left lower lobe since previous study. 2. Tubes and lines in good position as described. Dictated by: Dictated on workstation # [id number]
--- NOTE | 2016-01-26 07:39 | Pulmonary Progress Note ---
Subjective Subjective/Events-last exam Called last night by RN secondary to fever. Pt is also having diarrhea and still complaining of nausea. Exam Exam Vital Signs Date Time Temp Pulse Resp B/P Pulse Ox O2 Delivery O2 Flow Rate FiO2 01/26/16 06:57 92 Room Air 01/26/16 05:09 99.0 95 18 95/58 93 Room Air 01/26/16 03:32 94 Room Air 01/26/16 02:01 99.6 01/26/16 01:10 100.0 01/26/16 00:27 100.4 01/25/16 22:10 102.2 01/25/16 20:48 92 Room Air 01/25/16 20:00 Room Air 01/25/16 18:28 97.2 98 18 132/72 92 Room Air 01/25/16 16:28 92 Room Air 01/25/16 10:00 86 Room Air 01/25/16 08:00 Room Air I & O 01/26/16 07:00 Intake Total 1000 ml Balance 1000 ml General Appearance: No Apparent Distress Thin (Capped tracheostomy tube in place;) HEENT: PERRL/EOMI Neck: Non Tender Supple Respiratory: Crackles Cardiovascular: Regular Rate, Rhythm Gastrointestinal: normal bowel sounds non tender soft (JPEG tube in place;) Extremity: No Pedal Edema Neurologic/Psychiatric: Alert Oriented x3 Motor Weakness Skin: Warm/Dry Lymphatic: No Adenopathy Results Lab Laboratory Tests 01/25/16 22:45 01/26/16 06:55 Assessment/Plan Assessment/Plan Metastatic breast CA to posterior brain s/p crani and resection OSH S/p mechanical ventilation for respiratory failure and vocal cord paralysis s/p tracheostomy -Cap trach during day -SVNs -Suction PRN Aspiration pneumonia - RN has been suctioning TF from trach Fever - -Pt is having diarrhea - I am going to check a CDIFF toxin -PSEUDOMONUS IS SENSITIVE (NOT INTERMEDIATE) TO CIPRO WITH NADEEM OF <1 -check amylase/lipase -UA is negative blood cultures are pending s/p Pseudomonus pneumonia - Continue IV Levaquin X 14 days Nausea -probably secondary to TF -Have dietary evaluate TF Clinical Quality Measures DVT/VTE Risk/Contraindication: Risk Factor Score Per Nursin RFS Level Per Nursing on Admit: 4+=Very High CAROLYN CRAWFORD DO Jan 26, 2016 07:39
[2016-01-26] MEDS: MAGNESIUM OXIDE (MAG-OX)400 MG TAB JT SCH ×2 (08:00→17:30)
[2016-01-26] MEDS: BENEFIBER (FROM DIETARY) DOCUMENTATION PURPOSE ONLY PO SCH ×3 (09:00→22:12)
[2016-01-26] MEDS: LACTOBACILLUS Acidoph/Bulgar (LACTINEX/FLORANEX) TAB JT SCH ×4 (09:00→22:11)
[2016-01-26] MEDS: guaiFENesin SYRUP 100 MG/5 ML 10 ML (ROBITUSSIN SF) JT SCH ×4 (09:00→22:11)
[2016-01-26] MEDS: DIPHENOXYLATE/ATROPINE 2.5MG/0.025MG (LOMOTIL) TAB JT SCH ×2 (09:00→22:11)
[2016-01-26] MEDS: FAMOTIDINE 20 MG (PEPCID) TABLET JT SCH ×2 (09:00→22:11)
[2016-01-26] MEDS: CEFEPIME INJECTION 2,000 MG in NORMAL SALINE (BAXTER MINI) 50 ML IV SCH ×2 (09:29→22:12)
--- NOTE | 2016-01-26 09:37 | Physical Therapy Daily Note ---
PT Daily Note-Current Subjective Night nursing reports pt spiked temp 102.5F last night and had a rough night, now also suspecting Cdiff as well as possible lung infiltrates. Pt. agrees to Rx but wants to stay in bed and expects to go possibly go down stairs for "tube change out" Pain Numeric Pain Scale: 0-No Pain Appearance Pts coloring more mclain, appears to have some facial edema as well Mental Status Patient Orientation: Person, Place, Time, Eyes Open, Situation, Listless, Normal For Age Attachments: PEG Tube, IV Transfers Transfers (B, C, W/C) (FIM): 5 Scootin Rollin Supine to/from Sit: 5 (HOB elevated) Sit to/from Stand: 3 pt. TRFd to BSC and back only with min to mod assist. rolling and supt to sit min to CGA or VCs only Balance Balance Sitting Static: Good Balance Sitting Dynamic: Good Balance-Standing Static: Poor Balance Standing Dynamic: Poor Special Test Comments requires min to mod assist and AD for stance Exercises Supine Ex: Bridging, Ankle pumps, Quad Set, Rolling, Glut sets, Lower trunk rotation, Heel Slides, Short Arc Quads, Scooting, Straight leg raise, Hip abd/ add Supine Reps: 15 Seated Therapy Exercises: Ankle pumps, Sit to stand, Long arc quads, Hip flexion Seated Reps: 7 Upper extremity shoulder flexion and elbow flexion etc all x 12 Assessment Current Status: Fair Progress pt. limited by weakness this date. Dr Mathias entered room during Rx and spoke with pt. RE: lungs as well as possible cdiff Dx PT Short Term Goals Short Term Goals Transfers (B,C,W/C) (FIM): 5 Gait (FIM): 1 Distance (FIM): 1=up to 49 ft Gait Distance Comment: 25' Gait Level of Assist: 3 Gait Assistive Device: FWW Wheelchair (FIM): 1 (achieved on 01/13/16) Wheelchair distance (FIM): 1=up to 49 ft Wheelchair Distance: 50 Wheelchair Level of Assist: 4 PT Skilled Nursing Goals Professor Of Art Goals Transfers (B,C,W/C) (FIM): 5 Gait (FIM): 1 Gait distance (FIM): 1=up to 49 ft Distance: 45' Gait Level of Assist: 4 Gait Assistive Device: FWW Stairs (FIM): 1 # of Steps: 4 Stairs Level Of Assist: 4 PT Plan Treatment/Plan Treatment Plan: Continue Plan of Care Treatment Plan: Bed Mobility, Education, Functional Activity Enrrique, Functional Strength, Group Therapy, Gait, Safety, Therapeutic Exercise, Transfers Treatment Duration: 4 wks Visits Per Week: 10-11 Minutes/Day (M-F): 60-90 Minutes/Day (Sat/Maddox): PRN Safety Risks/Education Patient Education: Transfer Techniques, Issued Written HEP, Correct Positioning , Disease Process, Safety Issues Teaching Recipient: Patient Teaching Methods: Demonstration, Discussion Response to Teaching: Verbalize Understanding, Return Demonstration, Reinforcement Needed Time/GCodes Time In: 830 Time Out: 930 Total Billed Treatment Time: 60 Total Billed Treatment 1,FA40m,EX20m G Codes Necessary: KATLIN Maynard REPAIR SPECIALIST Jan 26, 2016 09:37
--- NOTE | 2016-01-26 10:14 | PM & R (SOAP) Progress Note ---
Subjective Subjective/Events-last exam Patient was seen in her room this AM.Patient min assist for transfers,Discussed case with DR Muro Interventional Radiology.He has obtained the double lumen G Tube so that the patient may have a functioning J tube with the hope that the patient will have less nausea and have aless chance of aspiration of tube feeds as well as a less chance of recurrent aspiration pneumonia. Objective Exam Last Set of Vital Signs Vital Signs Date Time Temp Pulse Resp B/P Pulse Ox O2 Delivery O2 Flow Rate FiO2 01/26/16 06:57 92 Room Air 01/26/16 05:09 99.0 95 18 95/58 01/20/16 16:07 21 Capillary Refill : I&O Intake and Output 01/26/16 00:00 Intake Total 1595 ml Output Total 100 ml Balance 1495 ml Intake Oral 0 ml IV Total 100 ml Tube Feeding 995 ml Other 500 ml Emesis 100 ml # Voids 7 # Bowel Movements 5 General: Alert, Oriented X3, Cooperative, No Acute Distress HEENT: Atraumatic, PERRLA, EOMI, Mucous Memb Moist/Fel[place] Neck: Other (Trach functioning) Lungs: Clear to Auscultation Heart: Regular Rate Abdomen: Normal Bowel Sounds, Soft, No Tenderness, Other (feeding tube in place ) Extremities: No Edema Neuro: Other (generalized weakness) Results Lab Laboratory Tests 01/24/16 06:30: Alanine Aminotransferase (ALT/SGPT) 22, Albumin 3.4, Alkaline Phosphatase 90, Anion Gap 10, Aspartate Amino Transf (AST/SGOT) 19, BUN/Creatinine Ratio 16, Basophils # (Auto) 0.0, Basophils (%) (Auto) 0, Blood Urea Nitrogen 9, Calcium Level 9.4, Carbon Dioxide Level 27, Chloride Level 101, Creatinine 0.55L, Eosinophils # (Auto) 0.0, Eosinophils (%) (Auto) 0, Estimat Glomerular Filtration Rate > 60, Glucose Level 109H, Hematocrit 35, Hemoglobin 10.9L, Lymphocytes # (Auto) 0.9L, Lymphocytes (%) (Auto) 9L, Mean Corpuscular Hemoglobin 29, Mean Corpuscular Hemoglobin Concent 31L, Mean Corpuscular Volume 94, Mean Platelet Volume 8.7, Monocytes # (Auto) 1.3H, Monocytes (%) (Auto) 13H , Neutrophils # (Auto) 7.7, Neutrophils (%) (Auto) 78H, Platelet Count 291, Potassium Level 3.9, Red Blood Count 3.71L, Red Cell Distribution Width 17.1H, Sodium Level 138, Total Bilirubin 0.3, Total Protein 6.2L, White Blood Count 9.9 01/25/16 22:45: Hematocrit 34L, Hemoglobin 11.2L, Mean Corpuscular Hemoglobin 30, Mean Corpuscular Hemoglobin Concent 33, Mean Corpuscular Volume 92, Mean Platelet Volume 8.0, Platelet Count 270, Red Blood Count 3.73L, Red Cell Distribution Width 16.9H, White Blood Count 16.7H 01/26/16 02:35: Urine Bacteria TRACE, Urine Bilirubin NEGATIVE, Urine Casts NONE, Urine Clarity CLEAR, Urine Color YELLOW, Urine Crystals NONE, Urine Culture Indicated NO, Urine Glucose (UA) NEGATIVE, Urine Ketones NEGATIVE, Urine Leukocyte Esterase NEGATIVE, Urine Mucus NEGATIVE, Urine Nitrite NEGATIVE, Urine Protein NEGATIVE, Urine RBC NONE, Urine RBC (Auto) NEGATIVE, Urine Specific [place] 1.005L, Urine Squamous Epithelial Cells 0-2, Urine Urobilinogen NORMAL, Urine WBC 0-2, Urine pH 6 01/26/16 06:55: Hematocrit 31L, Hemoglobin 10.1L, Mean Corpuscular Hemoglobin 30, Mean Corpuscular Hemoglobin Concent 33, Mean Corpuscular Volume 92, Mean Platelet Volume 8.3, Platelet Count 248, Red Blood Count 3.35L, Red Cell Distribution Width 17.1H, White Blood Count 14.8H Microbiology 01/15/16 Gram Stain - Final, Complete 01/15/16 Sputum Culture - Final, Complete Pseudomonas Aeruginosa Klebsiella Pneumoniae Assessment/Plan Assessment S/P crani and removal Met lesion from breast ca Dysphagia NPO on tube feeds S/P trach on trach collar at night and with PMV during day-now with o2 by trach collar to maintain sats S/P Radiation Therapy course while on Swing bed anemia s/p transfusion 2 unis PRBCS intermittent nausea felt to be ralted to meds-Zofran scheduled Diarrhea multifactorial Lomotil and Benefiber on Board-improving Recuurent pneumonia due to Vocal cord paralysis and secrtretions to complete course of IV antibiotics Probable aspiration of Tube feeds Plan Continue PT/OT/ST as tolerated Appreciate their notes and Specialists notes., Oral Thrush treated- Nystatin d/cd earlier during stay Will f/u re details with SW Current labs noted F/U with DR Bardales and Jam ( Interventional Radiology) Replace Feeding tube today Team Conference later today See report for full functional update and POC and ELOS Discharge was tentatively set for the but discharge may be delayed by recurrent pneumonia. as well as persistent nausea. UZMA VILLALOBOS MD Jan 26, 2016 10:14
--- NOTE | 2016-01-26 10:45 | Progress Note (SOAP) ---
Subjective Subjective/Events-last exam Patient spiked fever 100.4 and Chest Xray shows new developing infiltrate. She has had problems with chronic diarrhea. Currently patient states there is no increase in her diarrhea. Her diarrhea is not more odorous or foul smelling. Leukocytosis also noted. Objective Exam Vital Signs Date Time Temp Pulse Resp B/P Pulse Ox O2 Delivery O2 Flow Rate FiO2 01/26/16 06:57 92 Room Air 01/26/16 05:09 99.0 95 18 95/58 93 Room Air 01/26/16 03:32 94 Room Air 01/26/16 02:01 99.6 01/26/16 01:10 100.0 01/26/16 00:27 100.4 01/25/16 22:10 102.2 01/25/16 20:48 92 Room Air 01/25/16 20:00 Room Air 01/25/16 18:28 97.2 98 18 132/72 92 Room Air 01/25/16 16:28 92 Room Air I & O 01/26/16 07:00 Intake Total 1000 ml Balance 1000 ml Capillary Refill : General Appearance: Chronically ill Thin HEENT: Other Neck: Other (Tracheostomy in place) Respiratory: Crackles Rhonci Cardiovascular: Regular Rate, Rhythm Gastrointestinal: normal bowel sounds soft (Feeding tube in place) Extremity: Non Tender No Calf Tenderness Neurologic/Psychiatric: Alert Oriented x3 Motor Weakness Results Lab Laboratory Tests 01/25/16 22:45: Hematocrit 34L, Hemoglobin 11.2L, Mean Corpuscular Hemoglobin 30, Mean Corpuscular Hemoglobin Concent 33, Mean Corpuscular Volume 92, Mean Platelet Volume 8.0, Platelet Count 270, Red Blood Count 3.73L, Red Cell Distribution Width 16.9H, White Blood Count 16.7H 01/26/16 02:35: Urine Bacteria TRACE, Urine Bilirubin NEGATIVE, Urine Casts NONE, Urine Clarity CLEAR, Urine Color YELLOW, Urine Crystals NONE, Urine Culture Indicated NO, Urine Glucose (UA) NEGATIVE, Urine Ketones NEGATIVE, Urine Leukocyte Esterase NEGATIVE, Urine Mucus NEGATIVE, Urine Nitrite NEGATIVE, Urine Protein NEGATIVE, Urine RBC NONE, Urine RBC (Auto) NEGATIVE, Urine Specific [place] 1.005L, Urine Squamous Epithelial Cells 0-2, Urine Urobilinogen NORMAL, Urine WBC 0-2, Urine pH 6 01/26/16 06:55: Hematocrit 31L, Hemoglobin 10.1L, Mean Corpuscular Hemoglobin 30, Mean Corpuscular Hemoglobin Concent 33, Mean Corpuscular Volume 92, Mean Platelet Volume 8.3, Platelet Count 248, Red Blood Count 3.35L, Red Cell Distribution Width 17.1H, White Blood Count 14.8H Microbiology 01/15/16 Gram Stain - Final, Complete 01/15/16 Sputum Culture - Final, Complete Pseudomonas Aeruginosa Klebsiella Pneumoniae Radiology Chest x-ray done 01/25/16 INDICATION: Febrile. Comparison with 01/25/2016. FINDINGS: Tracheostomy tube is again noted in good position. Right central line is present unchanged in good position. 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 Lungs are well-aerated. There is suggestion of mild alveolar infiltrate developing in the left lung base when compared with previous exam. No evidence of pneumothorax or pleural effusions. The heart is not enlarged. IMPRESSION: 1. Findings are suggestive of developing pneumonia left lower lobe since previous study. 2. Tubes and lines in good position as described. Assessment/Plan Assessment/Plan Assess & Plan/Chief Complaint 1. Recurrent Pseudomonas pneumonia--bilateral upper lobes--patient is receiving IV levofloxacin which should be continued for a minimum of 14 days. I requested that IV cefepime be restarted in this complex medical patient with hospital-acquired pneumonia, history of metastatic cancer, and recurrent Pseudomonas pneumonia resistant to gentamicin and Zosyn but sensitive to both ciprofloxacin and cefepime. a. Although the current Pseudomonas culture shows sensitivity to Ciprofloxacin, the initial Pseudomonas strain cultured from her sputum was only intermediate to Ciprofloxacin; b. New lung infiltrate that develops while patient was on single agent coverage-coverage has been expanded with addition of Cefepime; c. Dr. Staples's consultation is noted and appreciated; 2. Leukocytosis-likely related to above lung infection; 3. Symptomatic anemia-check iron studies, vitamin B-12, folate and transfuse 2 units packed RBCs. 4. History of brain metastasis, status post resection at [facility] October 2015--Whole brain radiation completed on 01/04/16; a. Decadron has been tapered off. 5. Right breast cancer-infiltrating mammary cancer T2 N3b M0, Stage IIIC poorly differentiated high-grade ER 40 percent , ID negative Ki-67, 20 percent HER-2/linda 3+ positive, luminal B subtype; adjuvant chemotherapy, radiation and 1 year of trastuzumab completed on 09/14/15. a. Faslodex 500mg day 1 has been given on 12/22/15; b. Faslodex 500 mg day 15 given on 01/05/16 and day 29 (+1) was given 01/20/16; Next dose due in 4 weeks; 6. Vocal cord paralysis/dysphagia--patient has JPEG feeding tube and gastroscopy lumen is being used; a. Barium swallow done 01/04/16 positive for aspiration; b. Dr Mathias/Dr Muro to arrange possible replacement of feeding tube;tube is tentatively scheduled to be replaced on Sunday01/25/16 7. Debility--patient is receiving PT and OT to optimize functional status Diagnosis/Problems: Clinical Quality Measures DVT/VTE Risk/Contraindication: Risk Factor Score Per Nursin RFS Level Per Nursing on Admit: 4+=Very High ONESIMO HUFFMAN MD Jan 26, 2016 10:45
[2016-01-26 11:51] LABS: AMYLASE 79 U/L (25-125); LIPASE 8 U/L (8-78)
--- NOTE | 2016-01-26 13:16 | Physical Therapy Daily Note ---
PT Daily Note-Current Subjective Pt. in room with family. , Mother, Father and Aunt present for training for home. All supportive and involved this Rx. thanked this RAG GRADER and stated he notes good progress and feels she has had good care etc. Pt. resists therapies and states she had a rough night and is so very tired and has more procedures planned this afternoon and doesnt want to work. This RAG GRADER as well as family all encourage pt. Mental Status Attachments: PEG Tube, Other-See Comments (trach) Transfers ,Dad and Mom all participated in TRF training. Pt. indep got self to EOB with HOB up slightly. This takes some effort for pt. but her and family were pleased. SPTs toward left and right with dance fashion as well as using FWW. All trained in use of gait belt and assessing whether pt. is too weak to do FWW TRF. WC training demonstrating brakes off and on as well as pts ability to manage 30-50 ft using UEs and feet on floor Wheelchair Training Does the Pt Use a Wheelchair?: Yes Wheel 50 ft with 2 turns (QC): 3 Type of Wheelchair: Manual Assessment Current Status: Good Progress pts family supportive and demonstrate ability to manage pt. at home at pts current level PT Short Term Goals Short Term Goals Transfers (B,C,W/C) (FIM): 5 Gait (FIM): 1 Distance (FIM): 1=up to 49 ft Gait Distance Comment: 25' Gait Level of Assist: 3 Gait Assistive Device: FWW Wheelchair (FIM): 1 (achieved on 01/13/16) Wheelchair distance (FIM): 1=up to 49 ft Wheelchair Distance: 50 Wheelchair Level of Assist: 4 PT Chcf Goals Chcf Goals Transfers (B,C,W/C) (FIM): 5 Gait (FIM): 1 Gait distance (FIM): 1=up to 49 ft Distance: 45' Gait Level of Assist: 4 Gait Assistive Device: FWW Stairs (FIM): 1 # of Steps: 4 Stairs Level Of Assist: 4 PT Plan Treatment/Plan Treatment Plan: Continue Plan of Care Treatment Plan: Bed Mobility, Education, Functional Activity Enrrique, Functional Strength, Group Therapy, Gait, Safety, Therapeutic Exercise, Transfers Treatment Duration: 4 wks Visits Per Week: 10-11 Minutes/Day (M-F): 60-90 Minutes/Day (Sat/Maddox): PRN Safety Risks/Education Patient Education: Transfer Techniques, Correct Positioning, W/C Management, Safety Issues Teaching Recipient: Patient, Family, Parent Teaching Methods: Demonstration, Discussion Response to Teaching: Verbalize Understanding, Return Demonstration, Reinforcement Needed Time/GCodes Time In: 1230 Time Out: 1300 Total Billed Treatment Time: 30 Total Billed Treatment 1,FA30m G Codes Necessary: KATLIN Maynard RAG GRADER Jan 26, 2016 13:16
--- NOTE | 2016-01-26 13:54 | Occupational Ther Daily Note ---
OT Current Status-Daily Note Subjective Pt seen in room, up in bed, family present, agreeable to OT. Family here for education to be able to take her home. No pain mentioned Appearance Alert, cooperative Mental Status/Objective Functional [place] Measure 0=Not Assessed/NA 4=Minimal Assistance 1=Total Assistance 5=Supervision or Setup 2=Maximal Assistance 6=Modified [place] 3=Moderate Assistance 7=Complete [place] Other Treatment Family education in steps for transfers - to/from bed, w/c, BSC, standing for toileting and dressing, technique for toileting. Her father and mother practiced transfers and toileting techniques and expressed their confidence in the transfers. Transfers were safe. parents verbalized understanding of Levi's level of performance in grooming, bathing, toileting and dressing. Discussed bathroom equipment and showed them transfer tub bench and how that transfer works (she has tub/shower in her own home). Also discussed and demonstrated rolling in bed and changing bedding. Aunt also present who is an RN. Pt left up in bed, all needs met, 4 rails up. Education OT Patient Education: Instructions to caregiver, Modified ADL techniques, Progress toward Goal/Update tx plan, Safety issues, Transfer techniques, Use of adapted equipment Teaching Recipient: Patient, Family Teaching Methods: Demonstration, Discussion Response to Teaching: Verbalize Understanding, Return Demonstration OT Short Term Goals Short Term Goals Lower Body Dressing(FIM): 4 Toileting(FIM): 4 Transfers (B,C,W/C) (FIM): 5 Toilet/Commode Transfer(FIM): 4 Shower Transfer(FIM): 5 1=Demonstrate adherence to instructed precautions during ADL tasks. 2=Patient will verbalize/demonstrate understanding of assistive devices/ modifications for ADL. 3=Patient will improve strength/tolerance for activity to enable patient to perform ADL's. OT Client Technologies Analyst Goals Prison Goals Time Frame: 4 weeks Eating (FIM): 1 Grooming(FIM): 6 Bathing(FIM): 6 Upper Body Dressing(FIM): 6 Lower Body Dressing(FIM): 5 Toileting(FIM): 5 Transfers (B,C,W/C) (FIM): 5 Toilet/Commode Transfer(FIM): 5 Shower Transfer(FIM): 5 Comprehension(FIM): 6 Expression (FIM): 5 Social Interaction(FIM): 5 Problem Solving(FIM): 5 Memory(FIM): 5 Additional Goals: 2-Verbalize Understanding, 3-ImproveStrength/Enrrique 1=Demonstrate adherence to instructed precautions during ADL tasks. 2=Patient will verbalize/demonstrate understanding of assistive devices/ modifications for ADL. 3=Patient will improve strength/tolerance for activity to enable patient to perform ADL's. OT Education/Plan Problem List/Assessment Pt would benefit from skilled OT to increase her independence in basic self care to allow her to return home safely Discharge Recommendations Plan/Recommendations: Continue POC Treatment Plan/Plan of Care Patient would benefit from OT for education, treatment and training to promote independence in ADL's, mobility, safety and/or upper extremity function for ADL' s. Plan of Care: ADL Retraining, Caregiver Training, Functional Mobility, Orthotic Fitting/Training, UE Funct Exercise/Act, UE Neuromus Re-Ed/Coord Treatment Duration: 4 weeks Visits Per Week: 10-11 Minutes/Day (M-F): 75-90 Minutes/Day (Sat/[place]): prn Agreement: Yes Rehab Potential: Guarded Time/GCodes Start Time: 10:15 Stop Time: 11:15 Total Time Billed (hr/min): 60 Billed Treatment Time visit, 60 minutes ADL KELLY ATKINS OT Jan 26, 2016 13:54
--- NOTE | 2016-01-26 15:06 | Occupational Ther Daily Note ---
OT Current Status-Daily Note Subjective Pt seen in room, up in w/c waiting for surgical procedure. Fatigued but no pain noted except in R wrist with exercise (pain stopped when exercise stopped) Appearance Alert, cooperative but fatigued Mental Status/Objective Functional [place] Measure 0=Not Assessed/NA 4=Minimal Assistance 1=Total Assistance 5=Supervision or Setup 2=Maximal Assistance 6=Modified [place] 3=Moderate Assistance 7=Complete [place] Other Treatment Family present. Pt was transported to gym per w/c. Pt worked on bilat UE ex with 1# dowel x 10 reps for shoulder, elbow and wrist. Also did 2 sets with arc activity with short extension, handling rings with good coordination. Pt worked with graded clothespins and was able to do red and yellow ones (easier) with R hand and blue and green ones (harder) with L hand. Unable to do black ones which are the hardest. Pt propelled w/c with her arms about 10 feet and then was transported to her room. Family education with her on w/c to bed transfers using FWW. Transferred to bed with min assist, indicating he thought it went well. Family ed to keep hold of gait belt for safety. Pt left up in bed, care transferred to nursing. Education OT Patient Education: Instructions to caregiver, Transfer techniques Teaching Recipient: Patient, Family Teaching Methods: Demonstration, Discussion Response to Teaching: Verbalize Understanding, Return Demonstration, Reinforcement Needed OT Short Term Goals Short Term Goals Lower Body Dressing(FIM): 4 Toileting(FIM): 4 Transfers (B,C,W/C) (FIM): 5 Toilet/Commode Transfer(FIM): 4 Shower Transfer(FIM): 5 1=Demonstrate adherence to instructed precautions during ADL tasks. 2=Patient will verbalize/demonstrate understanding of assistive devices/ modifications for ADL. 3=Patient will improve strength/tolerance for activity to enable patient to perform ADL's. OT Fpc Goals Fpc Goals Time Frame: 4 weeks Eating (FIM): 1 Grooming(FIM): 6 Bathing(FIM): 6 Upper Body Dressing(FIM): 6 Lower Body Dressing(FIM): 5 Toileting(FIM): 5 Transfers (B,C,W/C) (FIM): 5 Toilet/Commode Transfer(FIM): 5 Shower Transfer(FIM): 5 Comprehension(FIM): 6 Expression (FIM): 5 Social Interaction(FIM): 5 Problem Solving(FIM): 5 Memory(FIM): 5 Additional Goals: 2-Verbalize Understanding, 3-ImproveStrength/Enrrique 1=Demonstrate adherence to instructed precautions during ADL tasks. 2=Patient will verbalize/demonstrate understanding of assistive devices/ modifications for ADL. 3=Patient will improve strength/tolerance for activity to enable patient to perform ADL's. OT Education/Plan Problem List/Assessment Pt would benefit from skilled OT to increase her independence in basic self care to allow her to return home safely Discharge Recommendations Plan/Recommendations: Continue POC Treatment Plan/Plan of Care Patient would benefit from OT for education, treatment and training to promote independence in ADL's, mobility, safety and/or upper extremity function for ADL' s. Plan of Care: ADL Retraining, Caregiver Training, Functional Mobility, Orthotic Fitting/Training, UE Funct Exercise/Act, UE Neuromus Re-Ed/Coord Treatment Duration: 4 weeks Visits Per Week: 10-11 Minutes/Day (M-F): 75-90 Minutes/Day (Sat/[place]): prn Agreement: Yes Rehab Potential: Guarded Time/GCodes Start Time: 13:00 Stop Time: 13:30 Total Time Billed (hr/min): 30 Billed Treatment Time visit, 30 minutes exercise KELLY ATKINS OT Jan 26, 2016 15:06
[2016-01-26] MEDS: ENOXAPARIN 40 MG/0.4 ML (LOVENOX) SYR SC SCH (17:30)
[2016-01-26 17:42] VITALS: BP 99/68
[2016-01-26] MEDS: APAP 325 MG/10.15 ML LIQ (TYLENOL) UDC JT PRN (22:11)
[2016-01-27] MEDS: ONDANSETRON 4 MG/2 ML (SDV) Z0FRAN IVP SCH ×5 (00:17→18:29)
[2016-01-27] MEDS: RT-ALBUTEROL/IPRATROPIUM 3 ML (DUONEB) VIAL INH SCH ×4 (02:46→20:17)
[2016-01-27 06:00] VITALS: BP 98/64
[2016-01-27] MEDS: LEVOFLOXACIN 750 MG/150 ML IV 150 ML IV SCH (07:05)
[2016-01-27] MEDS: METOCLOPRAMIDE 10MG/10ML ORAL SOL(REGLAN) UDC PO SCH ×4 (07:05→22:00)
--- NOTE | 2016-01-27 07:51 | Pulmonary Progress Note ---
Subjective Subjective/Events-last exam No complications noted. Exam Exam Vital Signs Date Time Temp Pulse Resp B/P Pulse Ox O2 Delivery O2 Flow Rate FiO2 01/27/16 06:00 97.7 104 16 98/64 94 Room Air 01/27/16 02:57 92 Room Air 01/26/16 21:19 92 Room Air 01/26/16 20:00 Room Air 01/26/16 17:42 97.7 98 18 99/68 95 Room Air 01/26/16 14:57 94 Room Air 01/26/16 08:00 Room Air I & O 01/27/16 07:00 Intake Total 1953 ml Balance 1953 ml General Appearance: No Apparent Distress Thin (Capped tracheostomy tube in place;) HEENT: PERRL/EOMI Neck: Non Tender Supple Respiratory: Crackles Cardiovascular: Regular Rate, Rhythm Gastrointestinal: normal bowel sounds non tender soft (JPEG tube in place;) Extremity: No Pedal Edema Neurologic/Psychiatric: Alert Oriented x3 Motor Weakness Skin: Warm/Dry Lymphatic: No Adenopathy Results Lab Laboratory Tests 01/25/16 22:45 01/26/16 06:55 Assessment/Plan Assessment/Plan Metastatic breast CA to posterior brain s/p crani and resection OSH S/p mechanical ventilation for respiratory failure and vocal cord paralysis s/p tracheostomy -Cap trach during day -SVNs -Suction PRN Aspiration pneumonia - RN has been suctioning TF from trach Fever - -Pt is having diarrhea - CDIFF toxin pending -PSEUDOMONUS IS SENSITIVE (NOT INTERMEDIATE) TO CIPRO WITH NADEEM OF <1 -check amylase/lipase -UA is negative blood cultures are pending s/p Pseudomonus pneumonia - Continue IV Levaquin X 14 days Nausea -probably secondary to TF -Have dietary evaluate TF Clinical Quality Measures DVT/VTE Risk/Contraindication: Risk Factor Score Per Nursin RFS Level Per Nursing on Admit: 4+=Very High CAROLYN CRAWFORD DO Jan 27, 2016 07:51
[2016-01-27] MEDS: aCETylcysteine 20% (MUCOMYST) 30ML SOLN VIAL INH SCH ×2 (08:00→20:30)
[2016-01-27] MEDS: guaiFENesin SYRUP 100 MG/5 ML 10 ML (ROBITUSSIN SF) JT SCH ×4 (08:31→22:01)
[2016-01-27] MEDS: DIPHENOXYLATE/ATROPINE 2.5MG/0.025MG (LOMOTIL) TAB JT SCH ×2 (08:31→22:01)
[2016-01-27] MEDS: MAGNESIUM OXIDE (MAG-OX)400 MG TAB JT SCH ×2 (08:31→18:12)
[2016-01-27] MEDS: LACTOBACILLUS Acidoph/Bulgar (LACTINEX/FLORANEX) TAB JT SCH ×4 (08:31→22:01)
[2016-01-27] MEDS: FAMOTIDINE 20 MG (PEPCID) TABLET JT SCH ×2 (08:31→22:01)
[2016-01-27] MEDS: BENEFIBER (FROM DIETARY) DOCUMENTATION PURPOSE ONLY PO SCH ×3 (08:31→22:00)
[2016-01-27] MEDS: CEFEPIME INJECTION 2,000 MG in NORMAL SALINE (BAXTER MINI) 50 ML IV SCH ×2 (08:35→21:53)
--- NOTE | 2016-01-27 09:02 | Physical Therapy Daily Note ---
PT Daily Note-Current Subjective Patient in bed sleeping pre tx, agrees to PT. No complaints. Pain Numeric Pain Scale: 0-No Pain Appearance Patient in recliner with legs elevated post tx, has nurse call, merlin, all needs met. Mental Status Patient Orientation: Normal For Age Attachments: PEG Tube, IV Transfers Transfers (B, C, W/C) (FIM): 4 Scootin Rollin Roll Left to Right (QC): 4 Supine to/from Sit: 5 Sit to/from Stand: 4 Sit to Lying (QC): 4 Sit to Stand (QC): 4 Patient needs min assist to stand especially from low surfaces, is pretty unsteady and needs some assist with balance. Cues for hand placement. Gait Training Does the Patient Walk?: Yes Gait (FIM): 1 Distance: 15' Walk 10 feet (QC): 4 Gait Level of Assist: 4 Gait Persons Needed: 1 Gait Assistive Device: FWW Patient has unsteady gait that required min assist for balance, right leg tends to lab behind. Fatigued very quickly. Exercises Seated Therapy Exercises: Ankle pumps, Long arc quads, Hip flexion, Hip abd/add Seated Reps: 20 LAQ alternating for 3 min. Also PROM/stretching to both lower extremities in all planes. Treatments ROM, functional strengthening, bed mobility and transfers, ambulation Assessment Current Status: Fair Progress Patient hayden well, maintaining functional ROM. PT Short Term Goals Short Term Goals Transfers (B,C,W/C) (FIM): 5 Gait (FIM): 1 Distance (FIM): 1=up to 49 ft Gait Distance Comment: 25' Gait Level of Assist: 3 Gait Assistive Device: FWW Wheelchair (FIM): 1 (achieved on 01/13/16) Wheelchair distance (FIM): 1=up to 49 ft Wheelchair Distance: 50 Wheelchair Level of Assist: [address] Go[address] Road Advisor Goals Transfers (B,C,W/C) (FIM): 5 Gait (FIM): 1 Gait distance (FIM): 1=up to 49 ft Distance: 45' Gait Level of Assist: 4 Gait Assistive Device: FWW Stairs (FIM): 1 # of Steps: 4 Stairs Level Of Assist: 4 PT Plan Problem List Problem List: Activity Tolerance, Functional Strength, Safety, Balance, Gait, Transfer, Bed Mobility, ROM Treatment/Plan Treatment Plan: Continue Plan of Care Treatment Plan: Bed Mobility, Education, Functional Activity Enrrique, Functional Strength, Group Therapy, Gait, Safety, Therapeutic Exercise, Transfers Treatment Duration: 4 wks Visits Per Week: 10-11 Minutes/Day (M-F): 60-90 Minutes/Day (Sat/M[place]): PRN Safety Risks/Education Patient Education: Gait Training, Transfer Techniques, Correct Positioning, Safety Issues Teaching Recipient: Patient Teaching Methods: Demonstration, Discussion Response to Teaching: Reinforcement Needed Time/GCodes Time In: 800 Time Out: 900 Total Billed Treatment Time: 60 Total Billed Treatment 1 visit GT 10 min EX 50 min JUAN SMITH PT Jan 27, 2016 09:02
[2016-01-27] MEDS: APAP 325 MG/10.15 ML LIQ (TYLENOL) UDC JT PRN ×2 (09:32→18:12)
--- NOTE | 2016-01-27 12:23 | Progress Note (SOAP) ---
Subjective Subjective/Events-last exam No new complaints; Chronic diarrhea is unchanged; Sample still being awaited for C diff testing; No diarrhea reported today; Feeding tube was unclogged yesterday and jejunostomy lumen is being used and nausea has significantly improved; Objective Exam Vital Signs Date Time Temp Pulse Resp B/P Pulse Ox O2 Delivery O2 Flow Rate FiO2 01/27/16 08:00 Room Air 01/27/16 06:00 97.7 104 16 98/64 94 Room Air 01/27/16 02:57 92 Room Air 01/26/16 21:19 92 Room Air 01/26/16 20:00 Room Air 01/26/16 17:42 97.7 98 18 99/68 95 Room Air 01/26/16 14:57 94 Room Air I & O 01/27/16 07:00 Intake Total 1953 ml Balance 1953 ml Capillary Refill : General Appearance: No Apparent Distress Chronically ill HEENT: PERRL/EOMI Neck: Full Range of Motion Other (tracheostomy in place;) Respiratory: Crackles Rhonci Gastrointestinal: normal bowel sounds non tender soft other (feeding tube in place;) Neurologic/Psychiatric: Alert Oriented x3 Motor Weakness Results Lab Microbiology 01/25/16 Blood Culture - Preliminary, Resulted No growth 01/25/16 Gram Stain - Final, Resulted 01/25/16 Sputum Culture - Preliminary, Resulted Probable Pseudomonas 01/26/16 Urine Culture - Preliminary, Resulted Assessment/Plan Assessment/Plan Assess & Plan/Chief Complaint 1. Recurrent Pseudomonas pneumonia--bilateral upper lobes--patient is receiving IV levofloxacin which should be continued for a minimum of 14 days. I requested that IV cefepime be restarted in this complex medical patient with hospital-acquired pneumonia, history of metastatic cancer, and recurrent Pseudomonas pneumonia resistant to gentamicin and Zosyn but sensitive to both ciprofloxacin and cefepime. a. Although the second Pseudomonas culture shows sensitivity to Ciprofloxacin, the initial Pseudomonas strain cultured from her sputum was only intermediate to Ciprofloxacin; the latest (third) culture again shows probable Pseudomonas but sensitivities are still pending b. New lung infiltrate that develops while patient was on single agent coverage--coverage has been expanded with addition of Cefepime ; continue current regimen ; 2. Leukocytosis-likely related to above lung infection; 3. Symptomatic anemia-check iron studies, vitamin B-12, folate and transfuse 2 units packed RBCs. 4. History of brain metastasis, status post resection at [facility] October 2015--Whole brain radiation completed on 01/04/16; a. Decadron has been tapered off. 5. Right breast cancer-infiltrating mammary cancer T2 N3b M0, Stage IIIC poorly differentiated high-grade ER 40 percent , MI negative Ki-67, 20 percent HER-2/linda 3+ positive, luminal B subtype; adjuvant chemotherapy, radiation and 1 year of trastuzumab completed on 09/14/15. a. Faslodex 500mg day 1 has been given on 12/22/15; b. Faslodex 500 mg day 15 given on 01/05/16 and day 29 (+1) was given 01/20/16; Next dose due in 4 weeks; 6. Vocal cord paralysis/dysphagia--patient has JPEG feeding tube and gastroscopy lumen is being used; a. Barium swallow done 01/04/16 positive for aspiration; b. J PEG tube is currently functioning well after being unclogged by interventional radiologist. Nausea has improved. 7. Debility--patient is receiving PT and OT to optimize functional status Diagnosis/Problems: Clinical Quality Measures DVT/VTE Risk/Contraindication: Risk Factor Score Per Nursin RFS Level Per Nursing on Admit: 4+=Very High ONESIMO HUFFMAN MD Jan 27, 2016 12:23
--- NOTE | 2016-01-27 13:11 | Occupational Ther Daily Note ---
OT Current Status-Daily Note Subjective Pt lying in bed. No pain mentioned. Pt agreed to OT. Appearance Alert and cooperative Mental Status/Objective Functional [place] Measure 0=Not Assessed/NA 4=Minimal Assistance 1=Total Assistance 5=Supervision or Setup 2=Maximal Assistance 6=Modified [place] 3=Moderate Assistance 7=Complete [place] Attachments: NG Tube ADL-Treatment Pt sat EOB for sponge bath. Min A to don off blouse over her head due to decreased AROM R shoulder. Pt used FWW to place one hand for support while the other hand was used to pull down her pants, min assist. Then sat EOB to wash upper body and lower body except feet and buttocks and required assistance to stand while OT cleansed buttocks. Pt transferred to w/c with FWW with min assist and needed a little help to maneuver in bathroom to complete grooming skills at sink. Pt propelled w/c to therapy gym using bilat arms. Grooming (FIM): 5 (Pt sitting in w/c, brushed teeth, brushed hair at sink) Bathing (FIM): 4 (sponge bath. Pt sat at the EOB washed all body parts, except bottom. Pt declined to take socks off and wash feet.) Bathing Location: L Arm, R Arm, L Upper Leg, R Upper Leg, L Lower Leg ( including foot), R Lower Leg (including foot), Chest, Abdomen, Perineal Area Upper Body (FIM): 4 ( Pt sitting edge of bed. Assistance needed to don blouse over head due to decreased AROM R shoulder) Lower Body Dressing (FIM): 3 (Verbal cues needed for hand placement. Help to get one foot in pants and Depends. Help to pull pants over hips while standing, FWW, min assist. Declined socks) Transfers (B, C, W/C) (FIM): 4 (FWW, w/c) Other Treatment Pt propelled herself to the gym. Pt used arm bike for strengthening, activity tolerance for 12 min (increase by 2 min) at 10 maloney resistance for daily functional tasks. Pt stacked (27) cones for shoulder strengthening at various height and distance. AROM continues decreased in R shoulder during UE activities. Pt required recovery breaks due to discomfort of R shldr and fatigue. Pt propelled herself partway to her room. Transferred into bed min assist, FWW. Pt left in bed with HOB at 30 degrees with call light in hand. All needs were met. Education OT Patient Education: Exercise program, Purpose of tx/functional activities Teaching Recipient: Patient Teaching Methods: Demonstration Response to Teaching: Verbalize Understanding, Return Demonstration OT Short Term Goals Short Term Goals Lower Body Dressing(FIM): 4 Toileting(FIM): 4 Transfers (B,C,W/C) (FIM): 5 Toilet/Commode Transfer(FIM): 4 Shower Transfer(FIM): 5 1=Demonstrate adherence to instructed precautions during ADL tasks. 2=Patient will verbalize/demonstrate understanding of assistive devices/ modifications for ADL. 3=Patient will improve strength/tolerance for activity to enable patient to perform ADL's. OT Qa Test Analyst Goals Qa Test Analyst Goals Time Frame: 4 weeks Eating (FIM): 1 Grooming(FIM): 6 Bathing(FIM): 6 Upper Body Dressing(FIM): 6 Lower Body Dressing(FIM): 5 Toileting(FIM): 5 Transfers (B,C,W/C) (FIM): 5 Toilet/Commode Transfer(FIM): 5 Shower Transfer(FIM): 5 Comprehension(FIM): 6 Expression (FIM): 5 Social Interaction(FIM): 5 Problem Solving(FIM): 5 Memory(FIM): 5 Additional Goals: 2-Verbalize Understanding, 3-ImproveStrength/Enrrique 1=Demonstrate adherence to instructed precautions during ADL tasks. 2=Patient will verbalize/demonstrate understanding of assistive devices/ modifications for ADL. 3=Patient will improve strength/tolerance for activity to enable patient to perform ADL's. OT Education/Plan Problem List/Assessment Pt would benefit from skilled OT to increase her independence in basic self care to allow her to return home safely Discharge Recommendations Plan/Recommendations: Continue POC Treatment Plan/Plan of Care Patient would benefit from OT for education, treatment and training to promote independence in ADL's, mobility, safety and/or upper extremity function for ADL' s. Plan of Care: ADL Retraining, Caregiver Training, Functional Mobility, Orthotic Fitting/Training, UE Funct Exercise/Act, UE Neuromus Re-Ed/Coord Treatment Duration: 4 weeks Visits Per Week: 10-11 Minutes/Day (M-F): 75-90 Minutes/Day (Sat/Maddox): prn Agreement: Yes Rehab Potential: Guarded Time/GCodes Start Time: 10:00 Stop Time: 11:30 Total Time Billed (hr/min): 90 Billed Treatment Time visit 45 Ex, 45 ADL KELLY ATKINS OT Jan 27, 2016 13:10
--- NOTE | 2016-01-27 13:27 | Physical Therapy Daily Note ---
PT Daily Note-Current Subjective Pt is agreeable to PT; reports she is tired this afternoon and requests this therapist to assist her with wheelchair mobility. Mental Status Patient Orientation: Person, Place, Time, Situation Transfers Transfers (B, C, W/C) (FIM): 2 Scootin (assist of 2 to scoot up in bed with cues to push with her feet) Rollin Supine to/from Sit: 6 Sit to/from Stand: 4 (CGA to light min assist) Bed to/from Chair: 4 (FWW; CGA to light min assist and skilled cues for sequencing and safety. ) Unsteady with initial standing. SPT x 2 with FWW with assist; max assist to pull pants up/down; pt able to perform pericare from the front in sitting. Wheeled self to the sink to wash hands. Wheelchair Training Does the Pt Use a Wheelchair?: Yes Wheelchair (FIM): 4 Wheelchair Distance: 3=150 ft Distance: 150 ft Wheelchair Level of Assist: 4 (assist to propel the chair) Type of Wheelchair: Manual Exercises Seated Therapy Exercises: Ankle pumps, Long arc quads, Hip flexion, Hip abd/add , Glut set Seated Reps: 12 Assessment Pt working on functional transfers and bed mobility. Fatigues with wheelchair mobility. In bed post treatment with needs met and HOB elevated. PT Short Term Goals Short Term Goals Transfers (B,C,W/C) (FIM): 5 Gait (FIM): 1 Distance (FIM): 1=up to 49 ft Gait Distance Comment: 25' Gait Level of Assist: 3 Gait Assistive Device: FWW Wheelchair (FIM): 1 (achieved on 01/13/16) Wheelchair distance (FIM): 1=up to 49 ft Wheelchair Distance: 50 Wheelchair Level of Assist: 4 PT Textile Coating Machine Operator Goals Textile Coating Machine Operator Goals Transfers (B,C,W/C) (FIM): 5 Gait (FIM): 1 Gait distance (FIM): 1=up to 49 ft Distance: 45' Gait Level of Assist: 4 Gait Assistive Device: FWW Stairs (FIM): 1 # of Steps: 4 Stairs Level Of Assist: 4 PT Plan Problem List Problem List: Activity Tolerance, Functional Strength, Safety, Balance, Transfer, Bed Mobility Treatment/Plan Treatment Plan: Continue Plan of Care Treatment Plan: Bed Mobility, Education, Functional Activity Enrrique, Functional Strength, Group Therapy, Gait, Safety, Therapeutic Exercise, Transfers Treatment Duration: 4 wks Visits Per Week: 10-11 Minutes/Day (M-F): 60-90 Minutes/Day (Sat/M[place]ox): PRN Safety Risks/Education Patient Education: Safety Issues Teaching Recipient: Patient, Significant Other Response to Teaching: Reinforcement Needed Time/GCodes Time In: 1230 Time Out: 1310 Total Billed Treatment Time: 40 Total Billed Treatment visit EX 10 FA 15 WC 15 HUMBERTO AQUINO PT Jan 27, 2016 13:27
--- NOTE | 2016-01-27 15:00 | PM & R (SOAP) Progress Note ---
Subjective Subjective/Events-last exam Patient was seen in her room this AM Appreciate DR Melvin note Patients J tube unclogged yesterday and no Nausea this AM Patient Min to mod assist for transfers.Discussed case with RN Objective Exam Last Set of Vital Signs Vital Signs Date Time Temp Pulse Resp B/P Pulse Ox O2 Delivery O2 Flow Rate FiO2 01/27/16 14:37 92 Room Air 01/27/16 06:00 97.7 104 16 98/64 Capillary Refill : I&O Intake and Output 01/27/16 00:00 Intake Total 1190 ml Balance 1190 ml Intake Oral 0 ml IV Total 250 ml Tube Feeding 240 ml Other 700 ml # Voids 6 # Bowel Movements 2 General: Alert, Oriented X3, Cooperative, No Acute Distress HEENT: Atraumatic, PERRLA, EOMI, Mucous Memb Moist/[place] Neck: Other (Trach functioning) Lungs: Clear to Auscultation Heart: Regular Rate Abdomen: Normal Bowel Sounds, Soft, No Tenderness, Other (feeding tube in place ) Extremities: No Edema Neuro: Other (generalized weakness) Results Lab Laboratory Tests 01/25/16 22:45: Hematocrit 34L, Hemoglobin 11.2L, Mean Corpuscular Hemoglobin 30, Mean Corpuscular Hemoglobin Concent 33, Mean Corpuscular Volume 92, Mean Platelet Volume 8.0, Platelet Count 270, Red Blood Count 3.73L, Red Cell Distribution Width 16.9H, White Blood Count 16.7H 01/26/16 02:35: Urine Bacteria TRACE, Urine Bilirubin NEGATIVE, Urine Casts NONE, Urine Clarity CLEAR, Urine Color YELLOW, Urine Crystals NONE, Urine Culture Indicated NO, Urine Glucose (UA) NEGATIVE, Urine Ketones NEGATIVE, Urine Leukocyte Esterase NEGATIVE, Urine Mucus NEGATIVE, Urine Nitrite NEGATIVE, Urine Protein NEGATIVE, Urine RBC NONE, Urine RBC (Auto) NEGATIVE, Urine Specific [place] 1.005L, Urine Squamous Epithelial Cells 0-2, Urine Urobilinogen NORMAL, Urine WBC 0-2, Urine pH 6 01/26/16 06:55: Hematocrit 31L, Hemoglobin 10.1L, Mean Corpuscular Hemoglobin 30, Mean Corpuscular Hemoglobin Concent 33, Mean Corpuscular Volume 92, Mean Platelet Volume 8.3, Platelet Count 248, Red Blood Count 3.35L, Red Cell Distribution Width 17.1H, White Blood Count 14.8H 01/26/16 11:21: Amylase Level 79, Lipase 8 Microbiology 01/25/16 Blood Culture - Preliminary, Resulted No growth 01/25/16 Gram Stain - Final, Resulted 01/25/16 Sputum Culture - Preliminary, Resulted Probable Pseudomonas 01/26/16 Urine Culture - Preliminary, Resulted Assessment/Plan Assessment S/P crani and removal Met lesion from breast ca Dysphagia NPO on tube feeds S/P trach on trach collar at night and with PMV during day-now with o2 by trach collar to maintain sats S/P Radiation Therapy course while on Swing bed anemia s/p transfusion 2 unis PRBCS intermittent nausea felt to be ralted to [facility]-Zofran scheduled Diarrhea multifactorial Lomotil and Benefiber on Njboz-hftiowdpp-Xzeju for cdif pending and contact precautions in place Recuurent pneumonia due to Vocal cord paralysis and secretions to complete course of IV antibiotics Plan Continue PT/OT/ST as tolerated Appreciate their notes and Specialists notes., Oral Thrush treated- Nystatin d/cd earlier during stay Will f/u re details with SW Current labs noted F/U with DR Bardales and Jam ( Interventional Radiology)as needed Team Conference held yesterday See report for full functional update and POC and ELOS Discharge was tentatively set for the but discharge may be delayed by recurrent pneumonia. Awaiting stool for cdif Case management to f/u re disposition once course of antibiotics completed... UZMA VILLALOBOS MD Jan 27, 2016 15:00
--- NOTE | 2016-01-27 16:21 | Speech Therapy Daily Note ---
Speech Daily Progress Note Subjective Pt pleasant and cooperative. Repositioned upright in bed with HOB elevated. Objective The patient completed oral and pharyngeal exercises 10x10 with min cues for correct completion. Assessment Assessment Current Status: Good Progress Treatment Plan Continue Plan of Care Communication Comprehension: 5 Expression: 5 Social Cognition Social Interaction: 5 Problem Solvin Memory: 5 Speech Short Term Goals Short Term Goals Short Term Goals 1. The patient will independently demonstrate laryngeal, pharyngeal, and base of tongue exercises. Time Frame-STG: Two Weeks Speech Mcfp Goals Mcfp Goals 1. The patient will tolerate PO trials of the least restrictive consistency without signs/symptoms of aspiration or laryngeal penetration. Time Frame: Eight Weeks Comprehension: 6 Expression: 5 Social Interaction: 5 Problem Solvin Memory: 5 Speech-Plan Treatment Plan Speech Therapy Treatment Plan: Continue Plan of Care Treatment Duration: 30 Visits Per Week: 4 to 5 Minutes/Day (M-F): 30 Rehab Potential: Guarded Time Speech Therapy Time In: 15:00 Speech Therapy Time Out: 15:30 Billed Treatment Time 30 min EAMON LEMUS Jan 27, 2016 16:21
[2016-01-27] MEDS: ENOXAPARIN 40 MG/0.4 ML (LOVENOX) SYR SC SCH (16:39)
[2016-01-27 18:13] VITALS: BP 110/72
[2016-01-28] MEDS: ONDANSETRON 4 MG/2 ML (SDV) Z0FRAN IVP SCH ×4 (00:44→18:25)
[2016-01-28] MEDS: APAP 325 MG/10.15 ML LIQ (TYLENOL) UDC JT PRN ×4 (01:29→21:53)
[2016-01-28] MEDS: RT-ALBUTEROL/IPRATROPIUM 3 ML (DUONEB) VIAL INH SCH ×4 (02:05→19:46)
[2016-01-28 05:30] VITALS: BP 99/58
[2016-01-28] MEDS: METOCLOPRAMIDE 10MG/10ML ORAL SOL(REGLAN) UDC PO SCH ×4 (05:32→21:53)
[2016-01-28] MEDS: LEVOFLOXACIN 750 MG/150 ML IV 150 ML IV SCH (06:02)
--- NOTE | 2016-01-28 06:22 | Pulmonary Progress Note ---
Subjective Subjective/Events-last exam No complications noted. Exam Exam Vital Signs Date Time Temp Pulse Resp B/P Pulse Ox O2 Delivery O2 Flow Rate FiO2 01/28/16 05:30 97.8 88 12 99/58 92 Trach Collar 01/28/16 02:06 91 Room Air 01/27/16 20:30 Room Air 01/27/16 20:17 94 Room Air 01/27/16 18:13 98.1 86 16 110/72 93 Room Air 01/27/16 14:37 92 Room Air 01/27/16 08:00 Room Air I & O 01/28/16 07:00 Intake Total 1980 ml Output Total 1150 ml Balance 830 ml General Appearance: No Apparent Distress Thin (Capped tracheostomy tube in place;) HEENT: PERRL/EOMI Neck: Non Tender Supple Respiratory: Crackles Cardiovascular: Regular Rate, Rhythm Gastrointestinal: normal bowel sounds non tender soft (JPEG tube in place;) Extremity: No Pedal Edema Neurologic/Psychiatric: Alert Oriented x3 Motor Weakness Skin: Warm/Dry Lymphatic: No Adenopathy Results Lab Laboratory Tests 01/26/16 06:55 Assessment/Plan Assessment/Plan 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
[2016-01-28] MEDS: aCETylcysteine 20% (MUCOMYST) 30ML SOLN VIAL INH SCH ×2 (07:39→19:46)
[2016-01-28 07:44] LABS: BASOPHILS % (AUTO) 0 % (0-10); EOSINOPHILS % (AUTO) 0 % (0-10); LYMPHOCYTES # (AUTO) 0.8 X 10^3 (1.0-4.0); LYMPHOCYTES % (AUTO) 11 % (12-44); MEAN CORPUSCULAR HEMOGLOBIN 30 PG (25-34); MEAN CORPUSCULAR HGB CONC 32 G/DL (32-36); MEAN CORPUSCULAR VOLUME 94 FL (80-99); MEAN PLATELET VOLUME 8.4 FL (7.4-10.4); MONOCYTES # (AUTO) 0.9 X 10^3 (0.0-1.0); MONOCYTES % (AUTO) 13 % (0-12); NEUTROPHILS # (AUTO) 5.3 X 10^3 (1.8-7.8); NEUTROPHILS % (AUTO) 76 % (42-75); PLATELET COUNT 215 10^3/uL (130-400); RED BLOOD COUNT 3.19 10^6/uL (4.35-5.85); RED CELL DISTRIBUTION WIDTH 16.6 % (10.0-14.5)
[2016-01-28 08:03] LABS: ANION GAP 7 MMOL/L (5-14); BLOOD UREA NITROGEN 7 MG/DL (7-18); BUN/CREATININE RATIO 15; CALCIUM 8.6 MG/DL (8.5-10.1); CARBON DIOXIDE 27 MMOL/L (21-32); CHLORIDE 104 MMOL/L (98-107); CREATININE SERUM 0.48 MG/DL (0.60-1.30); GFR ESTIMATED > 60; GLUCOSE 124 MG/DL (70-105); POTASSIUM 3.7 MMOL/L (3.6-5.0); SODIUM 138 MMOL/L (135-145)
--- NOTE | 2016-01-28 08:35 | PM & R (SOAP) Progress Note ---
Subjective Subjective/Events-last exam Patient was seen in her room this AM Discussed case with RN Patient with less episodes of nausea with adjustment of J Tube for Tube feeds.Still with some loose stools but Stool for CDIF negative. Contact precautions d/cd.Patient min assist for transfers Objective Exam Last Set of Vital Signs Vital Signs Date Time Temp Pulse Resp B/P Pulse Ox O2 Delivery O2 Flow Rate FiO2 01/28/16 07:35 94 Room Air 01/28/16 05:30 97.8 88 12 99/58 Capillary Refill : I&O Intake and Output 01/27/16 23:59 Intake Total 2603 ml Balance 2603 ml IV Total 150 ml Tube Feeding 1502 ml Other 951 ml # Voids 4 # Urine Diapers 1 # Bowel Movements 1 General: Alert, Oriented X3, Cooperative, No Acute Distress HEENT: Atraumatic, PERRLA, EOMI, Mucous Memb Moist/[place] Neck: Other (Trach functioning) Lungs: Clear to Auscultation Heart: Regular Rate Abdomen: Normal Bowel Sounds, Soft, No Tenderness, Other (feeding tube in place ) Extremities: No Edema Neuro: Other (generalized weakness) Results Lab Laboratory Tests 01/25/16 22:45: Hematocrit 34L, Hemoglobin 11.2L, Mean Corpuscular Hemoglobin 30, Mean Corpuscular Hemoglobin Concent 33, Mean Corpuscular Volume 92, Mean Platelet Volume 8.0, Platelet Count 270, Red Blood Count 3.73L, Red Cell Distribution Width 16.9H, White Blood Count 16.7H 01/26/16 02:35: Urine Bacteria TRACE, Urine Bilirubin NEGATIVE, Urine Casts NONE, Urine Clarity CLEAR, Urine Color YELLOW, Urine Crystals NONE, Urine Culture Indicated NO, Urine Glucose (UA) NEGATIVE, Urine Ketones NEGATIVE, Urine Leukocyte Esterase NEGATIVE, Urine Mucus NEGATIVE, Urine Nitrite NEGATIVE, Urine Protein NEGATIVE, Urine RBC NONE, Urine RBC (Auto) NEGATIVE, Urine Specific [facility] 1.005L, Urine Squamous Epithelial Cells 0-2, Urine Urobilinogen NORMAL, Urine WBC 0-2, Urine pH 6 01/26/16 06:55: Hematocrit 31L, Hemoglobin 10.1L, Mean Corpuscular Hemoglobin 30, Mean Corpuscular Hemoglobin Concent 33, Mean Corpuscular Volume 92, Mean Platelet Volume 8.3, Platelet Count 248, Red Blood Count 3.35L, Red Cell Distribution Width 17.1H, White Blood Count 14.8H 01/26/16 11:21: Amylase Level 79, Lipase 8 01/28/16 07:35: Anion Gap 7, BUN/Creatinine Ratio 15, Basophils # (Auto) 0.0, Basophils (%) ( Auto) 0, Blood Urea Nitrogen 7, Calcium Level 8.6, Carbon Dioxide Level 27, Chloride Level 104, Creatinine 0.48L, Eosinophils # (Auto) 0.0, Eosinophils (%) (Auto) 0, Estimat Glomerular Filtration Rate > 60, Glucose Level 124H, Hematocrit 30L, Hemoglobin 9.5L, Lymphocytes # (Auto) 0.8L, Lymphocytes (%) ( Auto) 11L, Mean Corpuscular Hemoglobin 30, Mean Corpuscular Hemoglobin Concent 32, Mean Corpuscular Volume 94, Mean Platelet Volume 8.4, Monocytes # (Auto) 0.9 , Monocytes (%) (Auto) 13H, Neutrophils # (Auto) 5.3, Neutrophils (%) (Auto) 76H , Platelet Count 215, Potassium Level 3.7, Red Blood Count 3.19L, Red Cell Distribution Width 16.6H, Sodium Level 138, White Blood Count 7.0 Microbiology 01/25/16 Blood Culture - Preliminary, Resulted No growth 01/27/16 C. difficile GDH Antigen & Toxins - Final, Complete 01/25/16 Gram Stain - Final, Resulted 01/25/16 Sputum Culture - Preliminary, Resulted Pseudomonas Aeruginosa 01/26/16 Urine Culture - Preliminary, Resulted Assessment/Plan Assessment S/P crani and removal Met lesion from breast ca Dysphagia NPO on tube feeds by J Tube S/P trach on trach collar at night and with PMV during day-now with o2 by trach collar to maintain sats S/P Radiation Therapy course while on Swing bed anemia s/p transfusion 2 unis PRBCS intermittent nausea felt to be ralated to meds-Zofran scheduled-doing better with J Tube cleared Diarrhea multifactorial Lomotil and Benefiber on Nrbho-wruueqdxq-Qntdo for cdif negative Recuurent pneumonia due to Vocal cord paralysis and secretions to complete course of IV antibiotics-doing better Plan Continue PT/OT/ST as tolerated Appreciate their notes and Specialists notes., Oral Thrush treated- Nystatin d/cd earlier during stay Current labs noted F/U with DR Bardales and Stew and Bhaskar ( Interventional Radiology)as needed Team Conference held 01-26-16 See report for full functional update and POC and ELOS Discharge was tentatively set for the but discharge delayed by recurrent pneumonia. Awaiting stool for cdif-done negative Case management to f/u re disposition once course of antibiotics completed. Next Team Conference .. UZMA VILLALOBOS MD Jan 28, 2016 08:35
--- NOTE | 2016-01-28 09:36 | Physical Therapy Daily Note ---
PT Daily Note-Current Subjective Agreeable to PT. Pt reports, "maybe I'm in bed too much." Agreeable to be up in chair post treatment. Mental Status Patient Orientation: Person, Place, Time, Situation Transfers Transfers (B, C, W/C) (FIM): 4 Supine to/from Sit: 5 Sit to/from Stand: 4 (min to CGA) Bed to/from Chair: 4 (min asssit with FWW with only steadying at gait belt. ) SPT x 6 reps with FWW; Sit to stand x 3 to perform weight shifting activity to promote ability to perform SPT safely; Weight shifting x 10 for 3 reps with close CGA. When pt transitions to sit, she needs min assist to lower. Wheelchair Training Does the Pt Use a Wheelchair?: Yes Wheelchair (FIM): 5 (household) Wheelchair Distance: [phone] ft Distance: 100 ft x 2 Wheelchair Level of Assist: 6 Type of Wheelchair: Manual Pt only needs assist to bring feeding tube pole. Exercises NuStep Minutes: 10 (To work on functional activity tolerance and LE strength for improved transfers and ability to stand. ) Assessment Pt more alert today. Agreeable to up to chair with lights on and door open. Pt typically requests to be in bed, lights off and door closed. PT Short Term Goals Short Term Goals Transfers (B,C,W/C) (FIM): 5 Gait (FIM): 1 Distance (FIM): 1=up to 49 ft Gait Distance Comment: 25' Gait Level of Assist: 3 Gait Assistive Device: FWW Wheelchair (FIM): 1 (achieved on 01/13/16) Wheelchair distance (FIM): 1=up to 49 ft Wheelchair Distance: 150 ft Wheelchair Level of Assist: 4 PT Nursing Home Goals Social Work Lecturer Goals Transfers (B,C,W/C) (FIM): 5 Gait (FIM): 1 Gait distance (FIM): 1=up to 49 ft Distance: 45' Gait Level of Assist: 4 Gait Assistive Device: FWW Stairs (FIM): 1 # of Steps: 4 Stairs Level Of Assist: 4 PT Plan Problem List Problem List: Activity Tolerance, Functional Strength, Safety, Transfer, Bed Mobility Treatment/Plan Treatment Plan: Continue Plan of Care Treatment Plan: Bed Mobility, Education, Functional Activity Enrrique, Functional Strength, Group Therapy, Gait, Safety, Therapeutic Exercise, Transfers Treatment Duration: 4 wks Visits Per Week: 10-11 Minutes/Day (M-F): 60-90 Minutes/Day (Sat/[place]): PRN Safety Risks/Education Patient Education: Transfer Techniques Teaching Recipient: Patient Teaching Methods: Demonstration, Discussion Response to Teaching: Return Demonstration, Reinforcement Needed Time/GCodes Time In: 830 Time Out: 930 Total Billed Treatment Time: 60 Total Billed Treatment visit FA 30 WC 20 EX 10 HUMBERTO AQUINO PT Jan 28, 2016 09:36
[2016-01-28] MEDS: FAMOTIDINE 20 MG (PEPCID) TABLET JT SCH ×2 (09:38→21:53)
[2016-01-28] MEDS: guaiFENesin SYRUP 100 MG/5 ML 10 ML (ROBITUSSIN SF) JT SCH ×4 (09:38→21:53)
[2016-01-28] MEDS: MAGNESIUM OXIDE (MAG-OX)400 MG TAB JT SCH ×2 (09:39→18:25)
[2016-01-28] MEDS: DIPHENOXYLATE/ATROPINE 2.5MG/0.025MG (LOMOTIL) TAB JT SCH ×2 (09:39→21:53)
[2016-01-28] MEDS: CEFEPIME INJECTION 2,000 MG in NORMAL SALINE (BAXTER MINI) 50 ML IV SCH ×2 (09:39→21:52)
[2016-01-28] MEDS: LACTOBACILLUS Acidoph/Bulgar (LACTINEX/FLORANEX) TAB JT SCH ×4 (09:39→21:53)
[2016-01-28] MEDS: BENEFIBER (FROM DIETARY) DOCUMENTATION PURPOSE ONLY PO SCH ×3 (09:40→21:54)
--- NOTE | 2016-01-28 11:21 | Progress Note (SOAP) ---
Subjective Subjective/Events-last exam No increase in cough or fever spikes reported; Up in chair and participated well with PT and OT today; Nausea improved and sputum is less; Objective Exam Vital Signs Date Time Temp Pulse Resp B/P Pulse Ox O2 Delivery O2 Flow Rate FiO2 01/28/16 08:00 Room Air 01/28/16 07:35 94 Room Air 01/28/16 05:30 97.8 88 12 99/58 92 Trach Collar 01/28/16 02:06 91 Room Air 01/27/16 20:30 Room Air 01/27/16 20:17 94 Room Air 01/27/16 18:13 98.1 86 16 110/72 93 Room Air 01/27/16 14:37 92 Room Air I & O 01/28/16 07:00 Intake Total 1980 ml Output Total 1150 ml Balance 830 ml Capillary Refill : General Appearance: Chronically ill HEENT: PERRL/EOMI Neck: Other (tracheostomy in place;) Respiratory: Crackles Cardiovascular: Regular Rate, Rhythm No Edema No Gallop No JVD Gastrointestinal: normal bowel sounds non tender soft other (Feeding Tube in place;) Extremity: Non Tender No Calf Tenderness Neurologic/Psychiatric: Alert Oriented x3 Motor Weakness Results Lab Laboratory Tests 01/28/16 07:35 Laboratory Tests 01/28/16 07:35: Anion Gap 7, BUN/Creatinine Ratio 15, Basophils # (Auto) 0.0, Basophils (%) ( Auto) 0, Blood Urea Nitrogen 7, Calcium Level 8.6, Carbon Dioxide Level 27, Chloride Level 104, Creatinine 0.48L, Eosinophils # (Auto) 0.0, Eosinophils (%) (Auto) 0, Estimat Glomerular Filtration Rate > 60, Glucose Level 124H, Hematocrit 30L, Hemoglobin 9.5L, Lymphocytes # (Auto) 0.8L, Lymphocytes (%) ( Auto) 11L, Mean Corpuscular Hemoglobin 30, Mean Corpuscular Hemoglobin Concent 32, Mean Corpuscular Volume 94, Mean Platelet Volume 8.4, Monocytes # (Auto) 0.9 , Monocytes (%) (Auto) 13H, Neutrophils # (Auto) 5.3, Neutrophils (%) (Auto) 76H , Platelet Count 215, Potassium Level 3.7, Red Blood Count 3.19L, Red Cell Distribution Width 16.6H, Sodium Level 138, White Blood Count 7.0 Microbiology 01/25/16 Blood Culture - Preliminary, Resulted No growth 01/27/16 C. difficile GDH Antigen & Toxins - Final, Complete 01/25/16 Gram Stain - Final, Complete 01/25/16 Sputum Culture - Final, Complete Pseudomonas Aeruginosa 01/26/16 Urine Culture - Preliminary, Resulted Assessment/Plan Assessment/Plan Assess & Plan/Chief Complaint 1. Recurrent Pseudomonas pneumonia--bilateral upper lobes--patient is receiving IV levofloxacin which should be continued for a minimum of 14 days. I requested that IV cefepime be restarted in this complex medical patient with hospital-acquired pneumonia, history of metastatic cancer, and recurrent Pseudomonas pneumonia resistant to gentamicin and Zosyn but sensitive to both ciprofloxacin and cefepime. a. Although the second Pseudomonas culture shows sensitivity to Ciprofloxacin, the initial Pseudomonas strain cultured from her sputum was only intermediate to Ciprofloxacin; the latest (third) culture again shows Pseudomonas. This Pseudomonas culture is resistant to Ciprofloxacin and to Cefepime; It is intermediate to Meropenem and to Amikacin. b. New lung infiltrate that develops while patient was on single agent coverage--coverage has been expanded with addition of Cefepime ; continue current regimen of Levaquin and cefepime. Patient has clinically improved and white count is down to 7.0, from 16,000 when she was only on Levaquin. Given the improvement in the current clinical setting as well as the implications of changing her therapy. At this time we will continue both Levaquin and cefepime and continue to monitor her clinical status. The Levaquin should be continued for the entire duration that cefepime is being administered, noting that a change in clinical status may require a change in her antibiotic regimen. 2. Leukocytosis-improved since combination antibiotics were restarted as discussed above. 3. Urine Culture-- Mixed gram postitive organisms, ID and sensitivities are pending; 4. History of brain metastasis, status post resection at [facility] October 2015--Whole brain radiation completed on 01/04/16; a. Decadron has been tapered off. 5. Right breast cancer-infiltrating mammary cancer T2 N3b M0, Stage IIIC poorly differentiated high-grade ER 40 percent , VT negative Ki-67, 20 percent HER-2/linda 3+ positive, luminal B subtype; adjuvant chemotherapy, radiation and 1 year of trastuzumab completed on 09/14/15. a. Faslodex 500mg day 1 has been given on 12/22/15; b. Faslodex 500 mg day 15 given on 01/05/16 and day 29 (+1) was given 01/20/16; Next dose due in 4 weeks; 6. Vocal cord paralysis/dysphagia--patient has JPEG feeding tube and gastroscopy lumen is being used; a. Barium swallow done 01/04/16 positive for aspiration; b. J PEG tube is currently functioning well after being unclogged by interventional radiologist. Nausea has improved. 7. Debility--patient is receiving PT and OT to optimize functional status Diagnosis/Problems: Clinical Quality Measures DVT/VTE Risk/Contraindication: Risk Factor Score Per Nursin RFS Level Per Nursing on Admit: 4+=Very High ONESIMO HUFFMAN MD Jan 28, 2016 11:21
--- NOTE | 2016-01-28 12:03 | Diagnostic Imaging Report ---
AP and lateral views of the chest. INDICATION: Followup infiltrate. FINDINGS: There is a tracheostomy tube and right internal jugular venous line with no significant change from prior exam. Right breast implant is also seen. There is mild left basilar infiltrate or atelectasis similar to 01/25/2016, noted. Fibrotic changes in the right suprahilar and left perihilar regions are noted. No effusion. No pneumothorax. IMPRESSION: Persistent mild left basilar infiltrate or atelectasis. Dictated by: Dictated on workstation # [id number]
--- NOTE | 2016-01-28 14:39 | Therapy Group Daily Note ---
Therapy Daily Group Note Exercises LE Seated Exercise, UE Exercise Other/Notes Pt actively participated in OT/PT group. Group consisted of introductions (name , place living, most dangerous thing done), socialization, seated UE/LE exercises, memory, critical thinking and description of ARU. Pt was able to contribute to discussions and activities appropriately. Pt was able to complete exercises with decreased AROM in B UE's. Pt was transported to and from group via w/c. After group, pt sitting in w/c beside bed. Call light/ phone in reach. All needs met in room. Start Time: 13:00 Stop Time: 14:15 Total Billed Treatment Time: 75 Total Billed Treatment 1-GRP HUMBERTO LUNA Jan 28, 2016 14:38
--- NOTE | 2016-01-28 14:55 | Occupational Ther Daily Note ---
OT Current Status-Daily Note Subjective Pt lying in bed. Pt stated feeling sad and wanting to cry. No pain mentioned. Agreed to OT Appearance Alert, cooperative Mental Status/Objective Functional [place] Measure 0=Not Assessed/NA 4=Minimal Assistance 1=Total Assistance 5=Supervision or Setup 2=Maximal Assistance 6=Modified [place] 3=Moderate Assistance 7=Complete [place] ADL-Treatment Pt agreed to shower. Pt used FWW for support Min A to transfer from bed to w/c. Min A to transfer from w/c to shower bench using grab bars. Pt was able to sit with SBA completing bathing. Pt washed/dried body parts (all parts except bottom),using hand held shower.Min assist transfer from bench to w/c, using grab bars. Mod A to doff blouse over head and to don blouse (getting shirt over head and pulling down in back.) Needed a little help to get pants over feet. Min A for balance, used FWW for support to help pull up brief, pant to waist. Verbal cues used for hand placement, encouragement to complete donning of socks but she was unable. Pt used her hands to propel herself into the bathroom.Pt brushed teeth, hair sitting in w/c in front of sink after set up. Pt transferred from w/c to bed min A, FWW. Pt left in bed, 30 degrees, 4 rails up. Call light in hand. All needs met. Functional [place] Measure 0=Not Assessed/NA 4=Minimal Assistance 1=Total Assistance 5=Supervision or Setup 2=Maximal Assistance 6=Modified [place] 3=Moderate Assistance 7=Complete IndependenceIRFPAI Quality Coding Scale 6 Independent with activity with or without an assistive device 5 Patient requires set up or clean up by helper. Patient completes activity by themselves 4 Supervision or touching assist (CGA). [place] provide cues , steadying assist 3 The helper provides less than half the effort to complete the activity 2 The helper provides more than half the effort to complete the activity 1 Dependent. The helper does all the effort to complete an activity 7 Patient refused to complete or attempt activity 9 The patient did not perform the activity before the current illness or injury 88 Not attempted due to Medical conditions or safety concerns Grooming (FIM): 5 (pt removed cap from toothpaste tube, squeeze toothpaste on to toothbrush. [place] hair ) Bathing (FIM): 4 (FWW, grab bars, hand held shower. Pt able to wash all body parts but buttocks and back.) Bathing Location: L Arm, R Arm, L Upper Leg, R Upper Leg, L Lower Leg ( including foot), R Lower Leg (including foot), Chest, Abdomen, Perineal Area Upper Body (FIM): 3 (Assistance to pull blouse over head, pull down back.) Lower Body Dressing (FIM): 3 (Mod ) Transfers (B, C, W/C) (FIM): 4 Shower Transfer(FIM): 4 (FWW, grab bars ) Education OT Patient Education: Correct positioning, Modified ADL techniques, Progress toward Goal/Update tx plan, Transfer techniques Teaching Recipient: Patient Teaching Methods: Discussion Response to Teaching: Verbalize Understanding, Reinforcement Needed OT Short Term Goals Short Term Goals Lower Body Dressing(FIM): 4 Toileting(FIM): 4 Transfers (B,C,W/C) (FIM): 5 Toilet/Commode Transfer(FIM): 4 Shower Transfer(FIM): 5 1=Demonstrate adherence to instructed precautions during ADL tasks. 2=Patient will verbalize/demonstrate understanding of assistive devices/ modifications for ADL. 3=Patient will improve strength/tolerance for activity to enable patient to perform ADL's. OT Photo Technician Goals Senior Living Goals Eating (FIM): 1 Grooming(FIM): 6 Bathing(FIM): 6 Upper Body Dressing(FIM): 6 Lower Body Dressing(FIM): 5 Toileting(FIM): 5 Transfers (B,C,W/C) (FIM): 5 Toilet/Commode Transfer(FIM): 5 Shower Transfer(FIM): 5 Comprehension(FIM): 6 Expression (FIM): 5 Social Interaction(FIM): 5 Problem Solving(FIM): 5 Memory(FIM): 5 Additional Goals: 2-Verbalize Understanding, 3-ImproveStrength/Enrrique 1=Demonstrate adherence to instructed precautions during ADL tasks. 2=Patient will verbalize/demonstrate understanding of assistive devices/ modifications for ADL. 3=Patient will improve strength/tolerance for activity to enable patient to perform ADL's. OT Education/Plan Problem List/Assessment Pt would benefit from skilled OT to increase her independence in basic self care to allow her to return home safely Discharge Recommendations Plan/Recommendations: Continue POC Treatment Plan/Plan of Care Patient would benefit from OT for education, treatment and training to promote independence in ADL's, mobility, safety and/or upper extremity function for ADL' s. Plan of Care: ADL Retraining, Caregiver Training, Functional Mobility, Orthotic Fitting/Training, UE Funct Exercise/Act, UE Neuromus Re-Ed/Coord Visits Per Week: 10-11 Minutes/Day (M-F): 75-90 Minutes/Day (Sat/[place]): prn Agreement: Yes Rehab Potential: Guarded Time/GCodes Start Time: 10:00 Stop Time: 12:00 Total Time Billed (hr/min): 60 Billed Treatment Time 1000 to 1020, 1120 to 1200 visit, 60 minutes KELLY HARDING OT Jan 28, 2016 14:54
[2016-01-28] MEDS: ENOXAPARIN 40 MG/0.4 ML (LOVENOX) SYR SC SCH (15:23)
[2016-01-28 17:58] VITALS: BP 106/72
[2016-01-28] MEDS ORDERED: CEFEPIME HCL 2 GM (MAXIPIME) VIAL ONE (21:08)
[2016-01-28] MEDS ORDERED: NORMAL SALINE (BAXTER MINI) 50 ML IV ONE (21:08)
[2016-01-29] MEDS: ONDANSETRON 4 MG/2 ML (SDV) Z0FRAN IVP SCH ×4 (00:57→18:24)
[2016-01-29 06:00] VITALS: BP 99/70
[2016-01-29] MEDS: METOCLOPRAMIDE 10MG/10ML ORAL SOL(REGLAN) UDC PO SCH ×4 (07:01→20:56)
[2016-01-29] MEDS: LEVOFLOXACIN 750 MG/150 ML IV 150 ML IV SCH (07:01)
--- NOTE | 2016-01-29 08:08 | Physical Therapy Daily Note ---
PT Daily Note-Current Subjective Patient is in bed and agrees to therapy. Pain Numeric Pain Scale: 0-No Pain Location: No Pain Reported Mental Status Patient Orientation: Normal For Age Attachments: IV Transfers Functional [place] Measure 0=Not Assessed/NA 4=Minimal Assistance 1=Total Assistance 5=Supervision or Setup 2=Maximal Assistance 6=Modified [place] 3=Moderate Assistance 7=Complete IndependenceIRFPAI Quality Coding Scale 6 Independent with activity with or without an assistive device 5 Patient requires set up or clean up by helper. Patient completes activity by themselves 4 Supervision or touching assist (CGA). [place] provide cues , steadying assist 3 The helper provides less than half the effort to complete the activity 2 The helper provides more than half the effort to complete the activity 1 Dependent. The helper does all the effort to complete an activity 7 Patient refused to complete or attempt activity 9 The patient did not perform the activity before the current illness or injury 88 Not attempted due to Medical conditions or safety concerns Transfers (B, C, W/C) (FIM): 4 Scootin Rollin Roll Left to Right (QC): 5 Supine to/from Sit: 5 Sit to/from Stand: 4 Bed to/from Chair: 4 Gait Training Gait (FIM): 1 Distance (FIM): 1=up to 49 ft Distance: 25' x 4 Gait Level of Assist: 3 Gait Persons Needed: 1 Gait Assistive Device: FWW increase right lean with extended distance. Treatments Patient performed lower body dressing in bed with assist to initiate putting on pants with patient pulling up pants SBA Assessment Patient is encouraged to remain up in recliner this a.m. PT to increase activity as tolerated by patient. PT Short Term Goals Short Term Goals Transfers (B,C,W/C) (FIM): 5 Gait (FIM): 1 Distance (FIM): 1=up to 49 ft Gait Distance Comment: 25' Gait Level of Assist: 3 Gait Assistive Device: FWW Wheelchair (FIM): 1 (achieved on 01/13/16) Wheelchair distance (FIM): 1=up to 49 ft Wheelchair Distance: 100 ft x 2 Wheelchair Level of Assist: 4 PT Correctional Case Records Supervisor Goals [facility] Goals Transfers (B,C,W/C) (FIM): 5 Rollin Gait (FIM): 1 Gait distance (FIM): 1=up to 49 ft Distance: 45' Gait Level of Assist: 4 Gait Assistive Device: FWW Stairs (FIM): 1 # of Steps: 4 Stairs Level Of Assist: 4 PT Plan Treatment/Plan Treatment Plan: Continue Plan of Care Treatment Plan: Bed Mobility, Education, Functional Activity Enrrique, Functional Strength, Group Therapy, Gait, Safety, Therapeutic Exercise, Transfers Visits Per Week: 10-11 Minutes/Day (M-F): 60-90 Minutes/Day (Sat/[place]): PRN Time/GCodes Time In: 700 Time Out: 730 Total Billed Treatment Time: 30 Total Billed Treatment 1 visit GT x 2 30 min TONG STROUD PT Jan 29, 2016 08:07
[2016-01-29] MEDS ORDERED: CEFEPIME HCL 2 GM (MAXIPIME) VIAL ONE ×2 (08:13→19:49)
[2016-01-29] MEDS ORDERED: NORMAL SALINE (BAXTER MINI) 50 ML IV ONE ×2 (08:14→19:50)
[2016-01-29] MEDS: RT-ALBUTEROL/IPRATROPIUM 3 ML (DUONEB) VIAL INH SCH ×3 (09:00→22:20)
[2016-01-29] MEDS: BENEFIBER (FROM DIETARY) DOCUMENTATION PURPOSE ONLY PO SCH ×3 (09:00→21:44)
[2016-01-29] MEDS: DIPHENOXYLATE/ATROPINE 2.5MG/0.025MG (LOMOTIL) TAB JT SCH ×2 (09:07→20:56)
[2016-01-29] MEDS: FAMOTIDINE 20 MG (PEPCID) TABLET JT SCH ×2 (09:07→20:56)
[2016-01-29] MEDS: guaiFENesin SYRUP 100 MG/5 ML 10 ML (ROBITUSSIN SF) JT SCH ×4 (09:07→20:56)
[2016-01-29] MEDS: LACTOBACILLUS Acidoph/Bulgar (LACTINEX/FLORANEX) TAB JT SCH ×4 (09:07→20:56)
[2016-01-29] MEDS: MAGNESIUM OXIDE (MAG-OX)400 MG TAB JT SCH ×2 (09:08→18:17)
[2016-01-29] MEDS: aCETylcysteine 20% (MUCOMYST) 30ML SOLN VIAL INH SCH ×2 (09:14→22:20)
[2016-01-29] MEDS: CEFEPIME INJECTION 2,000 MG in NORMAL SALINE (BAXTER MINI) 50 ML IV SCH ×2 (10:51→20:57)
[2016-01-29] MEDS: APAP 325 MG/10.15 ML LIQ (TYLENOL) UDC JT PRN ×2 (11:09→20:56)
--- NOTE | 2016-01-29 15:21 | Progress Note (SOAP) ---
Subjective Subjective/Events-last exam Patient is visiting with her [id number]; No new complaints; Reports more diarrhea with bolus feeds but has less nausea; Objective Exam Vital Signs Date Time Temp Pulse Resp B/P Pulse Ox O2 Delivery O2 Flow Rate FiO2 01/29/16 06:00 97.1 98 20 99/70 94 Room Air 01/29/16 02:30 95 Room Air 01/28/16 21:00 Room Air 01/28/16 19:46 92 Room Air 01/28/16 17:58 98.4 89 14 106/72 95 01/28/16 15:36 94 Room Air I & O 01/29/16 06:59 Intake Total 1910 ml Balance 1910 ml Capillary Refill : General Appearance: Chronically ill Neck: Normal Inspection Non Tender Other (tracheostomy in place;) Respiratory: Crackles Cardiovascular: Regular Rate, Rhythm No Edema No JVD No Murmur Gastrointestinal: normal bowel sounds non tender soft no organomegaly Extremity: Normal Range of Motion No Pedal Edema Neurologic/Psychiatric: Motor Weakness Results Lab Microbiology 01/25/16 Blood Culture - Preliminary, Resulted No growth 01/27/16 C. difficile GDH Antigen & Toxins - Final, Complete 01/25/16 Gram Stain - Final, Complete 01/25/16 Sputum Culture - Final, Complete Pseudomonas Aeruginosa 01/26/16 Urine Culture - Final, Complete Enterococcus Faecium Pseudomonas Aeruginosa Radiology Chest x-ray done 01/28/16: FINDINGS:There is a tracheostomy tube and right internal jugular venous line with no significant change from prior exam. Right breast implant is also seen. There is mild left basilar infiltrate or atelectasis similar to 01/25/2016, noted. Fibrotic changes in the right suprahilar and left perihilar regions are noted. No effusion. No pneumothorax. IMPRESSION: Persistent mild left basilar infiltrate or atelectasis. Assessment/Plan Assessment/Plan Assess & Plan/Chief Complaint 1. Recurrent Pseudomonas pneumonia-- a. Although the second Pseudomonas culture shows sensitivity to Ciprofloxacin, the initial Pseudomonas strain cultured from her sputum was only intermediate to Ciprofloxacin; the latest (third) culture again shows Pseudomonas. This Pseudomonas culture is resistant to Ciprofloxacin and to Cefepime; It is intermediate to Meropenem and to Amikacin. b. New lung infiltrate that developed while patient was on single agent coverage--coverage has been expanded with addition of Cefepime ; continue current regimen of Levaquin and cefepime. Patient has clinically improved and white count is down to 7.0, from 16,000 when she was only on Levaquin. Given the improvement in the current clinical setting as well as the implications of changing her therapy. At this time we will continue both Levaquin and cefepime and continue to monitor her clinical status. The Levaquin should be continued for the entire duration that cefepime is being administered, noting that a change in clinical status may require a change in her antibiotic regimen. 2. Leukocytosis--resolved since combination antibiotics were restarted as discussed above. 3. Urine Culture-- Urine is growing enterococcus and Pseudomonas; he enterococcus species is a VRE but is sensitive to nitrofurantoin and linezolid. a. She is currently asymptomatic and is likely colonized with many organisms. b. She does not swallow pills and JPEG tube was recently unclogged. c. We will monitor her for now and order the nitrofurantoin elixir to have it available in the pharmacy on Sunday (earliest day it will arrive) ; 4. History of brain metastasis, status post resection at [facility] October 2015--Whole brain radiation completed on 01/04/16; a. Decadron has been tapered off. 5. Right breast cancer-infiltrating mammary cancer T2 N3b M0, Stage IIIC poorly differentiated high-grade ER 40 percent , [place] negative Ki-67, 20 percent HER-2/linda 3+ positive, luminal B subtype; adjuvant chemotherapy, radiation and 1 year of trastuzumab completed on 09/14/15. a. Faslodex 500mg day 1 has been given on 12/22/15; b. Faslodex 500 mg day 15 given on 01/05/16 and day 29 (+1) was given 01/20/16; Next dose due in 4 weeks; 6. Vocal cord paralysis/dysphagia--patient has JPEG feeding tube and gastroscopy lumen is being used; a. Barium swallow done 01/04/16 positive for aspiration; b. J PEG tube is currently functioning well after being unclogged by interventional radiologist. Nausea has improved. 7. Debility--patient is receiving PT and OT to optimize functional status Diagnosis/Problems: Clinical Quality Measures DVT/VTE Risk/Contraindication: Risk Factor Score Per Nursin RFS Level Per Nursing on Admit: 4+=Very High ONESIMO HUFFMAN MD Jan 29, 2016 15:21
[2016-01-29] MEDS: ENOXAPARIN 40 MG/0.4 ML (LOVENOX) SYR SC SCH (16:30)
[2016-01-29 19:04] VITALS: BP 106/70
[2016-01-29] MEDS: CATHETER FLUSH 10 ML SYR IV PRN (20:57)
[2016-01-30] MEDS: ONDANSETRON 4 MG/2 ML (SDV) Z0FRAN IVP SCH ×5 (00:45→23:40)
[2016-01-30] MEDS: RT-ALBUTEROL/IPRATROPIUM 3 ML (DUONEB) VIAL INH SCH ×4 (02:49→22:05)
[2016-01-30 05:22] VITALS: BP 92/58
[2016-01-30 05:42] LABS: BASOPHILS % (AUTO) 1 % (0-10); EOSINOPHILS % (AUTO) 1 % (0-10); LYMPHOCYTES # (AUTO) 1.2 X 10^3 (1.0-4.0); LYMPHOCYTES % (AUTO) 21 % (12-44); MEAN CORPUSCULAR HEMOGLOBIN 30 PG (25-34); MEAN CORPUSCULAR HGB CONC 32 G/DL (32-36); MEAN CORPUSCULAR VOLUME 93 FL (80-99); MEAN PLATELET VOLUME 8.3 FL (7.4-10.4); MONOCYTES # (AUTO) 0.9 X 10^3 (0.0-1.0); MONOCYTES % (AUTO) 14 % (0-12); NEUTROPHILS # (AUTO) 3.8 X 10^3 (1.8-7.8); NEUTROPHILS % (AUTO) 64 % (42-75); PLATELET COUNT 221 10^3/uL (130-400); RED BLOOD COUNT 3.51 10^6/uL (4.35-5.85); RED CELL DISTRIBUTION WIDTH 16.6 % (10.0-14.5)
[2016-01-30] MEDS: APAP 325 MG/10.15 ML LIQ (TYLENOL) UDC JT PRN ×2 (05:49→18:56)
[2016-01-30] MEDS: METOCLOPRAMIDE 10MG/10ML ORAL SOL(REGLAN) UDC PO SCH ×4 (05:49→21:48)
[2016-01-30] MEDS: LEVOFLOXACIN 750 MG/150 ML IV 150 ML IV SCH (05:50)
[2016-01-30 05:59] LABS: ANION GAP 8 MMOL/L (5-14); BLOOD UREA NITROGEN 9 MG/DL (7-18); BUN/CREATININE RATIO 18; CARBON DIOXIDE 26 MMOL/L (21-32); CHLORIDE 104 MMOL/L (98-107); GFR ESTIMATED > 60; GLUCOSE 101 MG/DL (70-105); SODIUM 138 MMOL/L (135-145)
[2016-01-30] MEDS ORDERED: CEFEPIME HCL 2 GM (MAXIPIME) VIAL ONE ×2 (07:15→20:13)
[2016-01-30] MEDS ORDERED: NORMAL SALINE (BAXTER MINI) 50 ML IV ONE ×2 (07:16→20:13)
[2016-01-30] MEDS: MAGNESIUM OXIDE (MAG-OX)400 MG TAB JT SCH ×2 (07:35→18:50)
[2016-01-30] MEDS: CEFEPIME INJECTION 2,000 MG in NORMAL SALINE (BAXTER MINI) 50 ML IV SCH ×2 (07:36→21:48)
[2016-01-30] MEDS: aCETylcysteine 20% (MUCOMYST) 30ML SOLN VIAL INH SCH (08:00)
[2016-01-30] MEDS: DIPHENOXYLATE/ATROPINE 2.5MG/0.025MG (LOMOTIL) TAB JT SCH ×2 (09:50→21:48)
[2016-01-30] MEDS: LACTOBACILLUS Acidoph/Bulgar (LACTINEX/FLORANEX) TAB JT SCH ×4 (09:50→21:48)
[2016-01-30] MEDS: guaiFENesin SYRUP 100 MG/5 ML 10 ML (ROBITUSSIN SF) JT SCH ×4 (09:50→21:48)
[2016-01-30] MEDS: BENEFIBER (FROM DIETARY) DOCUMENTATION PURPOSE ONLY PO SCH ×3 (09:51→21:49)
[2016-01-30] MEDS: FAMOTIDINE 20 MG (PEPCID) TABLET JT SCH ×2 (09:51→21:48)
--- NOTE | 2016-01-30 13:16 | Progress Note (SOAP) ---
Subjective Subjective/Events-last exam Patient left hospital today and when out on pass to be with family. Nurses report that she is walking more with assistance and appears stronger than a week ago. Objective Exam Vital Signs Date Time Temp Pulse Resp B/P Pulse Ox O2 Delivery O2 Flow Rate FiO2 01/30/16 08:44 95 01/30/16 05:22 97.1 101 20 92/58 93 Room Air 01/30/16 02:49 97 Room Air 01/29/16 22:20 92 Room Air 01/29/16 21:00 Room Air 01/29/16 19:04 96.7 113 22 106/70 96 Room Air I & O 01/30/16 07:00 Intake Total 2039 ml Output Total 753 ml Balance 1286 ml Capillary Refill : General Appearance: No Apparent Distress Chronically ill HEENT: PERRL/EOMI Neck: Normal Inspection Non Tender Supple Respiratory: Crackles Cardiovascular: Regular Rate, Rhythm Gastrointestinal: normal bowel sounds soft other (feeding tube in place) Results Lab Laboratory Tests 01/30/16 05:30 Laboratory Tests 01/30/16 05:30: Anion Gap 8, BUN/Creatinine Ratio 18, Basophils # (Auto) 0.0, Basophils (%) ( Auto) 1, Blood Urea Nitrogen 9, Calcium Level 9.0, Carbon Dioxide Level 26, Chloride Level 104, Creatinine 0.50L, Eosinophils # (Auto) 0.0, Eosinophils (%) (Auto) 1, Estimat Glomerular Filtration Rate > 60, Glucose Level 101, Hematocrit 33L, Hemoglobin 10.4L, Lymphocytes # (Auto) 1.2, Lymphocytes (%) ( Auto) 21, Mean Corpuscular Hemoglobin 30, Mean Corpuscular Hemoglobin Concent 32 , Mean Corpuscular Volume 93, Mean Platelet Volume 8.3, Monocytes # (Auto) 0.9, Monocytes (%) (Auto) 14H, Neutrophils # (Auto) 3.8, Neutrophils (%) (Auto) 64, Platelet Count 221, Potassium Level 4.0, Red Blood Count 3.51L, Red Cell Distribution Width 16.6H, Sodium Level 138, White Blood Count 6.0 Microbiology 01/25/16 Blood Culture - Preliminary, Resulted No growth 01/27/16 C. difficile GDH Antigen & Toxins - Final, Complete 01/25/16 Gram Stain - Final, Complete 01/25/16 Sputum Culture - Final, Complete Pseudomonas Aeruginosa 01/26/16 Urine Culture - Final, Complete Enterococcus Faecium Pseudomonas Aeruginosa Assessment/Plan Assessment/Plan Assess & Plan/Chief Complaint 1. Recurrent Pseudomonas pneumonia-- a. Although the second Pseudomonas culture shows sensitivity to Ciprofloxacin, the initial Pseudomonas strain cultured from her sputum was only intermediate to Ciprofloxacin; the latest (third) culture again shows Pseudomonas. This Pseudomonas culture is resistant to Ciprofloxacin and to Cefepime; It is intermediate to Meropenem and to Amikacin. b. New lung infiltrate that developed while patient was on single agent coverage--coverage has been expanded with addition of Cefepime ; continue current regimen of Levaquin and cefepime. Patient has clinically improved and white count is down to 7.0, from 16,000 when she was only on Levaquin. Given the improvement in the current clinical setting as well as the implications of changing her therapy. At this time we will continue both Levaquin and cefepime and continue to monitor her clinical status. The Levaquin should be continued for the entire duration that cefepime is being administered, noting that a change in clinical status may require a change in her antibiotic regimen. 2. Leukocytosis--resolved since combination antibiotics were restarted as discussed above. 3. Urine Culture-- Urine is growing enterococcus and Pseudomonas; he enterococcus species is a VRE but is sensitive to nitrofurantoin and linezolid. a. She is currently asymptomatic and is likely colonized with many organisms. b. She does not swallow pills and JPEG tube was recently unclogged. c. We will monitor her for now and order the nitrofurantoin elixir to have it available in the pharmacy on Sunday (earliest day it will arrive) ; 4. History of brain metastasis, status post resection at [facility] October 2015--Whole brain radiation completed on 01/04/16; a. Decadron has been tapered off. 5. Right breast cancer-infiltrating mammary cancer T2 N3b M0, Stage IIIC poorly differentiated high-grade ER 40 percent , [place] negative Ki-67, 20 percent HER-2/linda 3+ positive, luminal B subtype; adjuvant chemotherapy, radiation and 1 year of trastuzumab completed on 09/14/15. a. Faslodex 500mg day 1 has been given on 12/22/15; b. Faslodex 500 mg day 15 given on 01/05/16 and day 29 (+1) was given 01/20/16; Next dose due in 4 weeks; 6. Vocal cord paralysis/dysphagia--patient has JPEG feeding tube and gastroscopy lumen is being used; a. Barium swallow done 01/04/16 positive for aspiration; b. J PEG tube is currently functioning well after being unclogged by interventional radiologist. Nausea has improved. 7. Debility--patient is receiving PT and OT to optimize functional status Diagnosis/Problems: Clinical Quality Measures DVT/VTE Risk/Contraindication: Risk Factor Score Per Nursin RFS Level Per Nursing on Admit: 4+=Very High ONESIMO HUFFMAN MD Jan 30, 2016 13:16
[2016-01-30] MEDS: ENOXAPARIN 40 MG/0.4 ML (LOVENOX) SYR SC SCH (18:51)
[2016-01-31] MEDS: APAP 325 MG/10.15 ML LIQ (TYLENOL) UDC JT PRN ×3 (01:51→23:55)
[2016-01-31] MEDS: aCETylcysteine 20% (MUCOMYST) 30ML SOLN VIAL INH SCH ×3 (02:51→21:34)
[2016-01-31] MEDS: RT-ALBUTEROL/IPRATROPIUM 3 ML (DUONEB) VIAL INH SCH ×4 (02:52→21:30)
[2016-01-31 06:00] VITALS: BP 101/68
[2016-01-31] MEDS: ONDANSETRON 4 MG/2 ML (SDV) Z0FRAN IVP SCH ×3 (06:42→17:23)
[2016-01-31] MEDS: METOCLOPRAMIDE 10MG/10ML ORAL SOL(REGLAN) UDC PO SCH ×4 (06:42→21:48)
[2016-01-31] MEDS: LEVOFLOXACIN 750 MG/150 ML IV 150 ML IV SCH (06:42)
[2016-01-31] MEDS ORDERED: CEFEPIME HCL 2 GM (MAXIPIME) VIAL ONE ×2 (07:02→20:23)
[2016-01-31] MEDS ORDERED: NORMAL SALINE (BAXTER MINI) 50 ML IV ONE ×2 (07:03→20:23)
[2016-01-31] MEDS: MAGNESIUM OXIDE (MAG-OX)400 MG TAB JT SCH ×2 (08:28→17:23)
[2016-01-31] MEDS: LACTOBACILLUS Acidoph/Bulgar (LACTINEX/FLORANEX) TAB JT SCH ×4 (08:28→21:48)
[2016-01-31] MEDS: FAMOTIDINE 20 MG (PEPCID) TABLET JT SCH ×2 (08:28→21:48)
[2016-01-31] MEDS: guaiFENesin SYRUP 100 MG/5 ML 10 ML (ROBITUSSIN SF) JT SCH ×4 (08:28→21:47)
[2016-01-31] MEDS: CEFEPIME INJECTION 2,000 MG in NORMAL SALINE (BAXTER MINI) 50 ML IV SCH ×2 (08:28→21:48)
[2016-01-31] MEDS: DIPHENOXYLATE/ATROPINE 2.5MG/0.025MG (LOMOTIL) TAB JT SCH ×2 (08:28→21:48)
[2016-01-31] MEDS: BENEFIBER (FROM DIETARY) DOCUMENTATION PURPOSE ONLY PO SCH ×3 (08:29→21:48)
[2016-01-31] MEDS: NITROFURANTOIN JT SCH ×5 (09:00→22:21)
--- NOTE | 2016-01-31 09:21 | Physical Therapy Daily Note ---
PT Daily Note-Current Subjective Agreeable to PT. Reports she went home yesterday for a few hours. Reported that she enjoyed being home. Mental Status Patient Orientation: Person, Place, Time, Situation Transfers Functional [place] Measure 0=Not Assessed/NA 4=Minimal Assistance 1=Total Assistance 5=Supervision or Setup 2=Maximal Assistance 6=Modified [place] 3=Moderate Assistance 7=Complete IndependenceIRFPAI Quality Coding Scale 6 Independent with activity with or without an assistive device 5 Patient requires set up or clean up by helper. Patient completes activity by themselves 4 Supervision or touching assist (CGA). [place] provide cues , steadying assist 3 The helper provides less than half the effort to complete the activity 2 The helper provides more than half the effort to complete the activity 1 Dependent. The helper does all the effort to complete an activity 7 Patient refused to complete or attempt activity 9 The patient did not perform the activity before the current illness or injury 88 Not attempted due to Medical conditions or safety concerns Transfers (B, C, W/C) (FIM): 4 Rollin Roll Left to Right (QC): 4 Supine to/from Sit: 6 Sit to/from Stand: 4 (min-CGA) Bed to/from Chair: 4 (with FWW with close CGA) Performed SPT x 6 reps this visit to work on funcitonal transfer skill, balance , and sequencing. No verbal cues required. Gait Training Gait (FIM): 2 Distance (FIM): 1=up to 49 ft Distance: 10 ft x 3 in // bars Gait Level of Assist: 4 (close CGA) Gait Assistive Device: Parallel Bars slow gait but no garcia LOB; able to turn 180 degrees with CGA Wheelchair Training Does the Pt Use a Wheelchair?: Yes Wheelchair (FIM): 5 (household) Wheelchair Distance: 1=508-02 ft Distance: 50 ft x 2 Wheelchair Level of Assist: 5 Type of Wheelchair: Manual an additional 50 ft x 2 with min assist to work her legs to propel. Exercises NuStep Minutes: 15 (to increase LE strength for transfers and standing as well as functional act tolerance. ) Assessment Current Status: Good Progress Transfers are improved; does well in // bars with CGA; needs encouragement to press on but always agreeable. PT Short Term Goals Short Term Goals Transfers (B,C,W/C) (FIM): 5 Gait (FIM): 1 Distance (FIM): 1=up to 49 ft Gait Distance Comment: 25' Gait Level of Assist: 3 Gait Assistive Device: FWW Wheelchair (FIM): 1 (achieved on 01/13/16) Wheelchair distance (FIM): 1=up to 49 ft Wheelchair Distance: 100 ft x 2 Wheelchair Level of Assist: 4 PT Senior Living Goals Adult And Pediatric Neurologist Goals Transfers (B,C,W/C) (FIM): 5 Rollin Gait (FIM): 1 Gait distance (FIM): 1=up to 49 ft Distance: 45' Gait Level of Assist: 4 Gait Assistive Device: FWW Stairs (FIM): 1 # of Steps: 4 Stairs Level Of Assist: 4 PT Plan Problem List Problem List: Activity Tolerance, Functional Strength, Safety, Balance, Gait, Transfer Treatment/Plan Treatment Plan: Continue Plan of Care Treatment Plan: Bed Mobility, Education, Functional Activity Enrrique, Functional Strength, Group Therapy, Gait, Safety, Therapeutic Exercise, Transfers Visits Per Week: 10-11 Minutes/Day (M-F): 60-90 Minutes/Day (Sat/[place]): PRN Safety Risks/Education Patient Education: Safety Issues Teaching Recipient: Patient Teaching Methods: Discussion Response to Teaching: Reinforcement Needed Time/GCodes Time In: 815 Time Out: 915 Total Billed Treatment Time: 60 Total Billed Treatment visit FA 30 EX 15 WC 15 HUMBERTO AQUINO PT Jan 31, 2016 09:21
--- NOTE | 2016-01-31 12:56 | Speech Therapy Progress Note ---
Therapy Progress Note The patient's plan of care was modified the week of 01/24/16 through 01/28/16 due to therapist illness. The patient was treated two times per week rather than the planned five times per week. GILBERT VORA Jan 31, 2016 12:56
--- NOTE | 2016-01-31 12:59 | Speech Therapy Daily Note ---
Speech Daily Progress Note Subjective The patient was seated upright in recliner upon entrance. The patient reported fatigue, however, agreed to participate in dysphagia treatment on this date. Objective Dysphagia Exercises: The patient completed base of tongue, pharyngeal, and laryngeal elevation exercises with 80% accuracy and moderate clinician verbal prompting. Pauses were provided between exercises secondary to patient fatigue. Assessment Assessment Current Status: Fair Progress Treatment Plan Continue Plan of Care Communication Comprehension: 5 Expression: 5 Social Cognition Social Interaction: 5 Problem Solvin Memory: 5 Speech Short Term Goals Short Term Goals Short Term Goals 1. The patient will independently demonstrate laryngeal, pharyngeal, and base of tongue exercises. PROGRESSING Time Frame-STG: Two Weeks Speech Usp Goals Usp Goals 1. The patient will tolerate PO trials of the least restrictive consistency without signs/symptoms of aspiration or laryngeal penetration. NOT APPROPRIATE AT THIS TIME 01/31/2016 Time Frame: Eight Weeks Comprehension: 6 Expression: 5 Social Interaction: 5 Problem Solvin Memory: 5 Speech-Plan Treatment Plan Speech Therapy Treatment Plan: Continue Plan of Care Treatment Duration: 30 # of days/week 4 to 5 Visits Per Week: 4 to 5 Minutes/Day (M-F): 30 Rehab Potential: Guarded Safety Risks/Education Teaching Recipient: Patient Teaching Methods: Demonstration, Handout, Discussion Response to Teaching: Return Demonstration, Reinforcement Needed Education Topics Provided: Dysphagia Exercises Time Speech Therapy Time In: 10:00 Speech Therapy Time Out: 10:30 Total Billed Time: 30 Billed Treatment Time ASAEL CurranMareGILBERT ST Jan 31, 2016 12:58
--- NOTE | 2016-01-31 13:32 | Progress Note (SOAP) ---
Subjective Subjective/Events-last exam Sitting up in wheelchair. No increase in cough, sputum production or dysuria reported; Objective Exam Vital Signs Date Time Temp Pulse Resp B/P Pulse Ox O2 Delivery O2 Flow Rate FiO2 01/31/16 06:00 96.4 89 20 101/68 97 Room Air 01/31/16 02:55 97 Room Air 01/30/16 22:08 97 Room Air 01/30/16 20:00 Room Air I & O 01/31/16 07:00 Intake Total 1830 ml Output Total 552 ml Balance 1278 ml Capillary Refill : General Appearance: No Apparent Distress Chronically ill HEENT: PERRL/EOMI Other (Tracheostomy present with cap in place;) Respiratory: Crackles Cardiovascular: Regular Rate, Rhythm No Edema Gastrointestinal: normal bowel sounds non tender soft other (Feeding tube in place;) Neurologic/Psychiatric: Alert 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 difficile GDH Antigen & Toxins - Final, Complete 01/25/16 Gram Stain - Final, Complete 01/25/16 Sputum Culture - Final, Complete Pseudomonas Aeruginosa 01/26/16 Urine Culture - Final, Complete Enterococcus Faecium Pseudomonas Aeruginosa Assessment/Plan Assessment/Plan Assess & Plan/Chief Complaint 1. Recurrent Pseudomonas pneumonia-- a. Although the second Pseudomonas culture shows sensitivity to Ciprofloxacin, the initial Pseudomonas strain cultured from her sputum was only intermediate to Ciprofloxacin; the latest (third) culture again shows Pseudomonas. This Pseudomonas culture is resistant to Ciprofloxacin and to Cefepime; It is intermediate to Meropenem and to Amikacin. b. New lung infiltrate that developed while patient was on single agent coverage--coverage was expanded with addition of Cefepime ; continue current regimen of Levaquin and cefepime. Patient has clinically improved and white count is down to 6.0, from 16,000. Given the improvement in the current clinical setting as well as the implications of changing her therapy, at this time we will continue both Levaquin and cefepime and continue to monitor her clinical status. The Levaquin should be continued for the entire duration that cefepime is being administered, noting that a change in clinical status may require a change in her antibiotic regimen. 2. Leukocytosis--resolved since combination antibiotics were restarted as discussed above. 3. Urine Culture-- Urine is growing enterococcus and Pseudomonas; the enterococcus species is a VRE but is sensitive to nitrofurantoin and linezolid. a. She is currently asymptomatic and is likely colonized with many organisms. b. She does not swallow pills and JPEG tube was recently unclogged. c. We will monitor her for now and order the nitrofurantoin elixir to have it available in the pharmacy on Sunday (earliest day it will arrive) ; 4. History of brain metastasis, status post resection at [facility] October 2015--Whole brain radiation completed on 01/04/16; a. Decadron has been tapered off. 5. Right breast cancer-infiltrating mammary cancer T2 N3b M0, Stage IIIC poorly differentiated high-grade ER 40 percent , VA negative Ki-67, 20 percent HER-2/linda 3+ positive, luminal B subtype; adjuvant chemotherapy, radiation and 1 year of trastuzumab completed on 09/14/15. a. Faslodex 500mg day 1 has been given on 12/22/15; b. Faslodex 500 mg day 15 given on 01/05/16 and day 29 (+1) was given 01/20/16; Next dose due 4 weeks from 01/19; 6. Vocal cord paralysis/dysphagia--patient has JPEG feeding tube and gastroscopy lumen is being used; a. Barium swallow done 01/04/16 positive for aspiration; b. J PEG tube is currently functioning well after being unclogged by interventional radiologist. Nausea has improved. 7. Debility--patient is receiving PT and OT to optimize functional status Diagnosis/Problems: Clinical Quality Measures DVT/VTE Risk/Contraindication: Risk Factor Score Per Nursin RFS Level Per Nursing on Admit: 4+=Very High ONESIMO HUFFMAN MD Jan 31, 2016 13:32
--- NOTE | 2016-01-31 13:42 | Occupational Ther Daily Note ---
OT Current Status-Daily Note Subjective Pt sitting in chair. Pt stated she threw up but feeling better. Pt stated she had clean pants and brief but wanted to change blouse. Pt agreed to OT. Appearance alert, cooperative Mental Status/Objective Functional [place] Measure 0=Not Assessed/NA 4=Minimal Assistance 1=Total Assistance 5=Supervision or Setup 2=Maximal Assistance 6=Modified [place] 3=Moderate Assistance 7=Complete [place] ADL-Treatment Pt transferred from chair to w/c with Min A, FWW. OT talked with pt about decreasing cues for hand placement in preparation for going home. Pt propelled herself part of the way to the gym. Pt used foam sponge (yellow) for grasp and intrinsics 12 reps 2 sets. Arm bike used for strength set at 12 min (10 maloney). Pt only completed 7min on arm bike due to bathroom break. OT assisted pt back to room and the bathroom. Min A used for pt to transfer from w/c to toilet. Pt used grab bars for support. Pt able to manage front perineal wash. OT assisted with cleaning back layo area. Min A used for pt transfer from w/c to bed. Pt left in bed, call light in hand, side rails up. All needs met. Functional [place] Measure 0=Not Assessed/NA 4=Minimal Assistance 1=Total Assistance 5=Supervision or Setup 2=Maximal Assistance 6=Modified [place] 3=Moderate Assistance 7=Complete IndependenceIRFPAI Quality Coding Scale 6 Independent with activity with or without an assistive device 5 Patient requires set up or clean up by helper. Patient completes activity by themselves 4 Supervision or touching assist (CGA). [place] provide cues , steadying assist 3 The helper provides less than half the effort to complete the activity 2 The helper provides more than half the effort to complete the activity 1 Dependent. The helper does all the effort to complete an activity 7 Patient refused to complete or attempt activity 9 The patient did not perform the activity before the current illness or injury 88 Not attempted due to Medical conditions or safety concerns Grooming (FIM): 5 (Sitting in w/c in front of sink. Pt brushed teeth. Pt leaned from w/c to turn water on/off. Able to take cap off toothpaste and squeeze it onto tooth brush) Upper Body (FIM): 4 (Pt had difficulty raising R arm to pull blouse over head but she pulled it down in back.) Toileting (FIM): 2 (Pt able to manage perineal in front. Help with pants up and down, one person. Grab bars, tall toilet) Toilet Transfer (QC): 4 (w/c, grab bars, tall toilet) Education OT Patient Education: Progress toward Goal/Update tx plan, Transfer techniques Teaching Recipient: Patient Teaching Methods: Discussion Response to Teaching: Verbalize Understanding, Return Demonstration OT Short Term Goals Short Term Goals Lower Body Dressing(FIM): 4 Toileting(FIM): 4 Transfers (B,C,W/C) (FIM): 5 Toilet/Commode Transfer(FIM): 4 Shower Transfer(FIM): 5 1=Demonstrate adherence to instructed precautions during ADL tasks. 2=Patient will verbalize/demonstrate understanding of assistive devices/ modifications for ADL. 3=Patient will improve strength/tolerance for activity to enable patient to perform ADL's. OT Airport Engineer Goals Airport Engineer Goals Eating (FIM): 1 Grooming(FIM): 6 Bathing(FIM): 6 Upper Body Dressing(FIM): 6 Lower Body Dressing(FIM): 5 Toileting(FIM): 5 Transfers (B,C,W/C) (FIM): 5 Toilet/Commode Transfer(FIM): 5 Shower Transfer(FIM): 5 Comprehension(FIM): 6 Expression (FIM): 5 Social Interaction(FIM): 5 Problem Solving(FIM): 5 Memory(FIM): 5 Additional Goals: 2-Verbalize Understanding, 3-ImproveStrength/Enrrique 1=Demonstrate adherence to instructed precautions during ADL tasks. 2=Patient will verbalize/demonstrate understanding of assistive devices/ modifications for ADL. 3=Patient will improve strength/tolerance for activity to enable patient to perform ADL's. OT Education/Plan Problem List/Assessment Pt would benefit from skilled OT to increase her independence in basic self care to allow her to return home safely Discharge Recommendations Plan/Recommendations: Continue POC Treatment Plan/Plan of Care Patient would benefit from OT for education, treatment and training to promote independence in ADL's, mobility, safety and/or upper extremity function for ADL' s. Plan of Care: ADL Retraining, Caregiver Training, Functional Mobility, Orthotic Fitting/Training, UE Funct Exercise/Act, UE Neuromus Re-Ed/Coord Visits Per Week: 10-11 Minutes/Day (M-F): 75-90 Minutes/Day (Sat/Madodx): prn Agreement: Yes Rehab Potential: Guarded Time/GCodes Start Time: 10:40 Stop Time: 11:40 Total Time Billed (hr/min): 60 Billed Treatment Time visit EX 15, ADL 45 min KELLY ATKINS OT Jan 31, 2016 13:41
--- NOTE | 2016-01-31 15:22 | Therapy Group Daily Note ---
Therapy Daily Group Note Patient Education Topic Home Safety, Other List Below Exercises LE Seated Exercise, UE Exercise Other/Notes Pt was active participant in OT/PT group. For socialization, she introduced herself and named her favorite dessert. She contributed to education/discussion on home safety and illness prevention and did seated UE and LE exercises, with modified technique for reaching overhead. She tolerated being up in her w/c for the entire group time and was returned to her room afterwards, in bed, 4 rails up, all needs met. Start Time: 13:00 Stop Time: 14:00 Total Billed Treatment Time: 60 Total Billed Treatment visit, group 60 minutes KELLY ATKINS OT Jan 31, 2016 15:22
[2016-01-31] MEDS: ENOXAPARIN 40 MG/0.4 ML (LOVENOX) SYR SC SCH (16:59)
[2016-01-31 18:04] VITALS: BP 111/73
--- NOTE | 2016-01-31 20:14 | PM & R (SOAP) Progress Note ---
Subjective Subjective/Events-last exam Patient was seen in her room this Afternoon Discussed case with RN Karen Melvin note and orders Tube feeds changed to Bolus and patient tolerating fairly well,Patient with less nausea.Patient min assist for transfers. Objective Exam Last Set of Vital Signs Vital Signs Date Time Temp Pulse Resp B/P Pulse Ox O2 Delivery O2 Flow Rate FiO2 01/31/16 15:05 93 Room Air 01/31/16 06:00 96.4 89 20 101/68 Capillary Refill : I&O Intake and Output 01/31/16 00:00 Intake Total 1869 ml Output Total 555 ml Balance 1314 ml Intake Oral 0 ml IV Total 200 ml Tube Feeding 1669 ml Output Urine Total 550 ml Urine/Stool Mix 5 ml # Voids 5 # Bowel Movements 2 General: Alert, Oriented X3, Cooperative, No Acute Distress HEENT: Atraumatic, PERRLA, EOMI, Mucous Memb Moist/[place] Neck: Other (Trach functioning) Lungs: Clear to Auscultation Heart: Regular Rate Abdomen: Normal Bowel Sounds, Soft, No Tenderness, Other (feeding tube in place ) Extremities: No Edema Neuro: Other (generalized weakness) Results Lab Laboratory Tests 01/30/16 05:30: Anion Gap 8, BUN/Creatinine Ratio 18, Basophils # (Auto) 0.0, Basophils (%) ( Auto) 1, Blood Urea Nitrogen 9, Calcium Level 9.0, Carbon Dioxide Level 26, Chloride Level 104, Creatinine 0.50L, Eosinophils # (Auto) 0.0, Eosinophils (%) (Auto) 1, Estimat Glomerular Filtration Rate > 60, Glucose Level 101, Hematocrit 33L, Hemoglobin 10.4L, Lymphocytes # (Auto) 1.2, Lymphocytes (%) ( Auto) 21, Mean Corpuscular Hemoglobin 30, Mean Corpuscular Hemoglobin Concent 32 , Mean Corpuscular Volume 93, Mean Platelet Volume 8.3, Monocytes # (Auto) 0.9, Monocytes (%) (Auto) 14H, Neutrophils # (Auto) 3.8, Neutrophils (%) (Auto) 64, Platelet Count 221, Potassium Level 4.0, Red Blood Count 3.51L, Red Cell Distribution Width 16.6H, Sodium Level 138, White Blood Count 6.0 Microbiology 01/25/16 Blood Culture - Final, Complete No growth 01/27/16 C. difficile GDH Antigen & Toxins - Final, Complete 01/25/16 Gram Stain - Final, Complete 01/25/16 Sputum Culture - Final, Complete Pseudomonas Aeruginosa 01/26/16 Urine Culture - Final, Complete Enterococcus Faecium Pseudomonas Aeruginosa Assessment/Plan Assessment S/P crani and removal Met lesion from breast ca Dysphagia NPO on tube feeds by J Tube S/P trach on trach collar at night and with PMV during day-now with o2 by trach collar to maintain sats S/P Radiation Therapy course while on Swing bed anemia s/p transfusion 2 unis PRBCS intermittent nausea felt to be ralated to meds-Zofran scheduled-doing better with J Tube cleared Diarrhea multifactorial Lomotil and Benefiber on [id number] for cdif negative Recuurent pneumonia due to Vocal cord paralysis and secretions to complete course of IV antibiotics-doing better Plan Continue PT/OT/ST as tolerated Appreciate their notes and Specialists notes., Oral Thrush treated- Nystatin d/cd earlier during stay Current labs noted F/U with DR Bardales and Jam ( Interventional Radiology)as needed Discharge on hold for now. Awaiting stool for cdif-done negative Case management to f/u re disposition once course of antibiotics completed. Next Team Conference .. UZMA VILLALOBOS MD Jan 31, 2016 20:14
[2016-02-01] MEDS: ONDANSETRON 4 MG/2 ML (SDV) Z0FRAN IVP SCH ×4 (00:13→17:34)
[2016-02-01] MEDS: RT-ALBUTEROL/IPRATROPIUM 3 ML (DUONEB) VIAL INH SCH ×4 (03:59→20:01)
[2016-02-01 04:49] VITALS: BP 100/64
[2016-02-01] MEDS: aCETylcysteine 20% (MUCOMYST) 30ML SOLN VIAL INH SCH ×2 (06:22→20:01)
[2016-02-01] MEDS: METOCLOPRAMIDE 10MG/10ML ORAL SOL(REGLAN) UDC PO SCH ×4 (06:38→21:54)
[2016-02-01] MEDS: LEVOFLOXACIN 750 MG/150 ML IV 150 ML IV SCH (06:38)
[2016-02-01] MEDS ORDERED: CEFEPIME HCL 2 GM (MAXIPIME) VIAL ONE ×2 (08:10→21:13)
[2016-02-01] MEDS ORDERED: NORMAL SALINE (BAXTER MINI) 50 ML IV ONE ×2 (08:11→21:13)
[2016-02-01] MEDS: LACTOBACILLUS Acidoph/Bulgar (LACTINEX/FLORANEX) TAB JT SCH ×4 (08:28→21:53)
[2016-02-01] MEDS: MAGNESIUM OXIDE (MAG-OX)400 MG TAB JT SCH ×2 (08:28→17:34)
[2016-02-01] MEDS: FAMOTIDINE 20 MG (PEPCID) TABLET JT SCH ×2 (08:28→21:53)
[2016-02-01] MEDS: guaiFENesin SYRUP 100 MG/5 ML 10 ML (ROBITUSSIN SF) JT SCH ×4 (08:28→21:53)
[2016-02-01] MEDS: DIPHENOXYLATE/ATROPINE 2.5MG/0.025MG (LOMOTIL) TAB JT SCH ×2 (08:28→21:53)
[2016-02-01] MEDS: CEFEPIME INJECTION 2,000 MG in NORMAL SALINE (BAXTER MINI) 50 ML IV SCH ×2 (08:29→21:53)
[2016-02-01] MEDS: BENEFIBER (FROM DIETARY) DOCUMENTATION PURPOSE ONLY PO SCH ×3 (08:30→21:54)
[2016-02-01] MEDS: NITROFURANTOIN JT SCH ×4 (09:36→21:54)
[2016-02-01 10:13] VITALS: BP 136/75
--- NOTE | 2016-02-01 10:58 | Speech Therapy Daily Note ---
Speech Daily Progress Note Subjective The patient was laying in bed upon entrance. The patient reported fatigue, however, agreed to participate in dysphagia therapy on this date. Objective Dysphagia Exercises: The patient completed base of tongue, pharyngeal, and laryngeal elevation exercises with 80% accuracy and mild clinician verbal prompting. Pauses were provided between exercises secondary to patient fatigue. The patient completed ten repetitions of each exercise on this date. Assessment Assessment Current Status: Fair Progress Treatment Plan Continue Plan of Care Communication Comprehension: 5 Expression: 5 Social Cognition Social Interaction: 5 Problem Solvin Memory: 5 Speech Short Term Goals Short Term Goals Short Term Goals 1. The patient will independently demonstrate laryngeal, pharyngeal, and base of tongue exercises. PROGRESSING Time Frame-STG: Two Weeks Speech Bottle Assembler Goals Custodial Goals 1. The patient will tolerate PO trials of the least restrictive consistency without signs/symptoms of aspiration or laryngeal penetration. NOT APPROPRIATE AT THIS TIME 01/31/2016 Time Frame: Eight Weeks Comprehension: 6 Expression: 5 Social Interaction: 5 Problem Solvin Memory: 5 Speech-Plan Treatment Plan Speech Therapy Treatment Plan: Continue Plan of Care Treatment Duration: Six Weeks # of days/week 4 to 5 Visits Per Week: 4 to 5 Minutes/Day (M-F): 30 Rehab Potential: Guarded Safety Risks/Education Teaching Recipient: Patient Teaching Methods: Demonstration, Discussion Response to Teaching: Verbalize Understanding, Return Demonstration, Reinforcement Needed Education Topics Provided: Dysphagia Exercises Time Speech Therapy Time In: 10:00 Speech Therapy Time Out: 10:30 Total Billed Time: 30 Billed Treatment Time ASAEL Curran ELIZABETH Feb 01, 2016 10:58
--- NOTE | 2016-02-01 11:03 | PM & R (SOAP) Progress Note ---
Subjective Subjective/Events-last exam Patient was seen in her room this AM Requesting day pass for weekend See orders nausea better with better functioning J Tube,Patient min assist for transfers Objective Exam Last Set of Vital Signs Vital Signs Date Time Temp Pulse Resp B/P Pulse Ox O2 Delivery O2 Flow Rate FiO2 02/01/16 10:13 87 136/75 02/01/16 06:22 94 Room Air 02/01/16 04:49 98.7 16 Capillary Refill : I&O Intake and Output 02/01/16 00:00 Intake Total 2140 ml Output Total 501 ml Balance 1639 ml Intake Oral 0 ml IV Total 50 ml Tube Feeding 1490 ml Other 600 ml Output Urine Total 500 ml Urine/Stool Mix 1 ml # Voids 5 # Bowel Movements 2 General: Alert, Oriented X3, Cooperative, No Acute Distress HEENT: Atraumatic, PERRLA, EOMI, Mucous Memb Moist/[place] Neck: Other (Trach functioning) Lungs: Clear to Auscultation Heart: Regular Rate Abdomen: Normal Bowel Sounds, Soft, No Tenderness, Other (feeding tube in place ) Extremities: No Edema Neuro: Other (generalized weakness) Results Lab Laboratory Tests 01/30/16 05:30: Anion Gap 8, BUN/Creatinine Ratio 18, Basophils # (Auto) 0.0, Basophils (%) ( Auto) 1, Blood Urea Nitrogen 9, Calcium Level 9.0, Carbon Dioxide Level 26, Chloride Level 104, Creatinine 0.50L, Eosinophils # (Auto) 0.0, Eosinophils (%) (Auto) 1, Estimat Glomerular Filtration Rate > 60, Glucose Level 101, Hematocrit 33L, Hemoglobin 10.4L, Lymphocytes # (Auto) 1.2, Lymphocytes (%) ( Auto) 21, Mean Corpuscular Hemoglobin 30, Mean Corpuscular Hemoglobin Concent 32 , Mean Corpuscular Volume 93, Mean Platelet Volume 8.3, Monocytes # (Auto) 0.9, Monocytes (%) (Auto) 14H, Neutrophils # (Auto) 3.8, Neutrophils (%) (Auto) 64, Platelet Count 221, Potassium Level 4.0, Red Blood Count 3.51L, Red Cell Distribution Width 16.6H, Sodium Level 138, White Blood Count 6.0 Microbiology 01/25/16 Blood Culture - Final, Complete No growth 01/27/16 C. difficile GDH Antigen & Toxins - Final, Complete 01/25/16 Gram Stain - Final, Complete 01/25/16 Sputum Culture - Final, Complete Pseudomonas Aeruginosa 01/26/16 Urine Culture - Final, Complete Enterococcus Faecium Pseudomonas Aeruginosa Assessment/Plan Assessment S/P crani and removal Met lesion from breast ca Dysphagia NPO on tube feeds by J Tube S/P trach on trach collar at night and with PMV during day-now with o2 by trach collar to maintain sats S/P Radiation Therapy course while on Swing bed anemia s/p transfusion 2 unis PRBCS intermittent nausea felt to be ralated to meds-Zofran scheduled-doing better with J Tube cleared Diarrhea multifactorial Lomotil and Benefiber on [id number] for cdif negative Recuurent pneumonia due to Vocal cord paralysis and secretions to complete course of IV antibiotics-doing better Plan Continue PT/OT/ST as tolerated Appreciate their notes and Specialists notes., Oral Thrush treated- Nystatin d/cd earlier during stay Current labs noted F/U with DR Bardales and Jam ( Interventional Radiology)as needed Discharge on hold for now. Awaiting stool for cdif-done negative Case management to f/u re disposition once course of antibiotics completed. Next Team Conference tomorrow . Day pass for holiday see orders,. UZMA VILLALOBOS MD Feb 01, 2016 11:03
--- NOTE | 2016-02-01 12:09 | Physical Therapy Daily Note ---
PT Daily Note-Current Subjective Pt laying supine in bed upon arrival. Pt reports feeling tired but agrees to PT. Pain Numeric Pain Scale: 0-No Pain Location: No Pain Reported Mental Status Patient Orientation: Person, Place, Time, Situation Attachments: PEG Tube Transfers Functional [place] Measure 0=Not Assessed/NA 4=Minimal Assistance 1=Total Assistance 5=Supervision or Setup 2=Maximal Assistance 6=Modified [place] 3=Moderate Assistance 7=Complete IndependenceIRFPAI Quality Coding Scale 6 Independent with activity with or without an assistive device 5 Patient requires set up or clean up by helper. Patient completes activity by themselves 4 Supervision or touching assist (CGA). [place] provide cues , steadying assist 3 The helper provides less than half the effort to complete the activity 2 The helper provides more than half the effort to complete the activity 1 Dependent. The helper does all the effort to complete an activity 7 Patient refused to complete or attempt activity 9 The patient did not perform the activity before the current illness or injury 88 Not attempted due to Medical conditions or safety concerns Scootin Rollin Supine to/from Sit: 5 Sit to/from Stand: 4 Bed to/from Chair: 4 Weight Bearing Weight Bearing Restriction: Full Weight Bearing Location Restriction: LE Bilateral Wheelchair Training Does the Pt Use a Wheelchair?: Yes Wheelchair Distance: 4=110-86 ft Distance: 125' Wheelchair Level of Assist: 4 Type of Wheelchair: Manual Pt fatigues easy when propelling W/C so has to take rest breaks. Exercises Supine Ex: Ankle pumps, Quad Set, Heel Slides, Straight leg raise, Hip abd/add Supine Reps: 15 Treatments Pt completed supine EX before taking rest break. Pt then transferred to W/C from EOB at Min-Mod A in dance style transfer. Pt then propelled W/C in hallway with several rest breaks before needing to return to room to use BSC. Pt needed assistance in changing brief due to BM. Pt then was fatigued and returned to supine in bed to rest with all needs met at end of tx. Assessment Current Status: Good Progress Pt still fatigues with activity but is able to complete more before fatiguing. Pt is also getting stronger and more independent with EX and transfers. PT Short Term Goals Short Term Goals Transfers (B,C,W/C) (FIM): 5 Gait (FIM): 1 Distance (FIM): 1=up to 49 ft Gait Distance Comment: 25' Gait Level of Assist: 3 Gait Assistive Device: FWW Wheelchair (FIM): 1 (achieved on 01/13/16) Wheelchair distance (FIM): 1=up to 49 ft Wheelchair Distance: 50 ft x 2 Wheelchair Level of Assist: 4 PT Senior Living Goals Senior Living Goals Transfers (B,C,W/C) (FIM): 5 Rollin Gait (FIM): 1 Gait distance (FIM): 1=up to 49 ft Distance: 45' Gait Level of Assist: 4 Gait Assistive Device: FWW Stairs (FIM): 1 # of Steps: 4 Stairs Level Of Assist: 4 PT Plan Problem List Problem List: Activity Tolerance, Functional Strength, Balance, Gait, Transfer Treatment/Plan Treatment Plan: Continue Plan of Care Treatment Plan: Bed Mobility, Education, Functional Activity Enrrique, Functional Strength, Group Therapy, Gait, Safety, Therapeutic Exercise, Transfers Visits Per Week: 10-11 Minutes/Day (M-F): 60-90 Minutes/Day (Sat/[place]): PRN Safety Risks/Education Patient Education: Gait Training, Transfer Techniques, Correct Positioning, Safety Issues Teaching Recipient: Patient Teaching Methods: Discussion Response to Teaching: Verbalize Understanding Time/GCodes Time In: 1100 Time Out: 1200 Total Billed Treatment Time: 60 Total Billed Treatment visit, EX X2 (30m) & FA X2 (30m) LUISA DASILVA PTA Feb 01, 2016 12:09
--- NOTE | 2016-02-01 14:32 | Progress Note (SOAP) ---
Subjective Subjective/Events-last exam Sitting up in chair; No increase in cough, nausea, and no complaints of dysuria; Objective Exam Vital Signs Date Time Temp Pulse Resp B/P Pulse Ox O2 Delivery O2 Flow Rate FiO2 02/01/16 10:13 87 136/75 02/01/16 06:22 94 Room Air 02/01/16 04:49 98.7 87 16 100/64 91 Room Air 02/01/16 03:59 92 Room Air 01/31/16 21:34 94 Room Air 01/31/16 20:00 Room Air 01/31/16 18:04 96.1 88 14 111/73 91 01/31/16 15:05 93 Room Air I & O 02/01/16 07:00 Intake Total 1140 ml Output Total 501 ml Balance 639 ml Capillary Refill : General Appearance: No Apparent Distress Chronically ill Neck: Other (Tracheostomy in place;) Respiratory: Crackles Cardiovascular: Regular Rate, Rhythm No Edema Gastrointestinal: normal bowel sounds other (Feeding tube in place;) Extremity: Normal Capillary Refill Normal Inspection Normal Range of Motion Non Tender No Calf Tenderness Neurologic/Psychiatric: Alert Oriented x3 Motor Weakness Results Lab Microbiology 01/25/16 Blood Culture - Final, Complete No growth 01/27/16 C. difficile GDH Antigen & Toxins - Final, Complete 01/25/16 Gram Stain - Final, Complete 01/25/16 Sputum Culture - Final, Complete Pseudomonas Aeruginosa 01/26/16 Urine Culture - Final, Complete Enterococcus Faecium Pseudomonas Aeruginosa Assessment/Plan Assessment/Plan Assess & Plan/Chief Complaint 1. Recurrent Pseudomonas pneumonia-- a. Although the second Pseudomonas culture shows sensitivity to Ciprofloxacin, the initial Pseudomonas strain cultured from her sputum was only intermediate to Ciprofloxacin; the latest (third) culture again shows Pseudomonas. This Pseudomonas culture is resistant to Ciprofloxacin and to Cefepime; It is intermediate to Meropenem and to Amikacin. b. New lung infiltrate that developed while patient was on single agent coverage--coverage was expanded with addition of Cefepime ; continue current regimen of Levaquin and cefepime. Patient has clinically improved and white count is down to 6.0, from 16,000. Given the improvement in the current clinical setting as well as the implications of changing her therapy, at this time we will continue both Levaquin and cefepime and continue to monitor her clinical status. The Levaquin should be continued for the entire duration that cefepime is being administered, noting that a change in clinical status may prompt a change in her antibiotic regimen. 2. Leukocytosis--resolved since combination antibiotics were restarted as discussed above. 3. Urine Culture-- Urine is growing enterococcus and Pseudomonas; the enterococcus species is a VRE but is sensitive to nitrofurantoin and linezolid. a. She is currently asymptomatic and is likely colonized with many organisms. b. She does not swallow pills and JPEG tube was recently unclogged. c. We will monitor her for now and order the nitrofurantoin elixir to have it available in the pharmacy on Sunday (earliest day it will arrive) ; 4. History of brain metastasis, status post resection at [facility] October 2015--Whole brain radiation completed on 01/04/16; a. Decadron has been tapered off. 5. Right breast cancer-infiltrating mammary cancer T2 N3b M0, Stage IIIC poorly differentiated high-grade ER 40 percent , DC negative Ki-67, 20 percent HER-2/linda 3+ positive, luminal B subtype; adjuvant chemotherapy, radiation and 1 year of trastuzumab completed on 09/14/15. a. Faslodex 500mg day 1 has been given on 12/22/15; b. Faslodex 500 mg day 15 given on 01/05/16 and day 29 (+1) was given 01/20/16; Next dose due 4 weeks from 01/19; 6. Vocal cord paralysis/dysphagia--patient has JPEG feeding tube and gastroscopy lumen is being used; a. Barium swallow done 01/04/16 positive for aspiration; b. J PEG tube is currently functioning well after being unclogged by interventional radiologist. Nausea has improved. 7. Debility--patient is receiving PT and OT to optimize functional status Diagnosis/Problems: Clinical Quality Measures DVT/VTE Risk/Contraindication: Risk Factor Score Per Nursin RFS Level Per Nursing on Admit: 4+=Very High ONESIMO HUFFMAN MD Feb 01, 2016 14:32
--- NOTE | 2016-02-01 14:39 | Physical Therapy Daily Note ---
PT Daily Note-Current Subjective Pt reports she is having an average day. She agrees to participate in exercise and gait. Mental Status Patient Orientation: Normal For Age Transfers Functional [place] Measure 0=Not Assessed/NA 4=Minimal Assistance 1=Total Assistance 5=Supervision or Setup 2=Maximal Assistance 6=Modified [place] 3=Moderate Assistance 7=Complete IndependenceIRFPAI Quality Coding Scale 6 Independent with activity with or without an assistive device 5 Patient requires set up or clean up by helper. Patient completes activity by themselves 4 Supervision or touching assist (CGA). [place] provide cues , steadying assist 3 The helper provides less than half the effort to complete the activity 2 The helper provides more than half the effort to complete the activity 1 Dependent. The helper does all the effort to complete an activity 7 Patient refused to complete or attempt activity 9 The patient did not perform the activity before the current illness or injury 88 Not attempted due to Medical conditions or safety concerns Sit to/from Stand: 5 Bed to/from Chair: 4 Gait Training Does the Patient Walk?: Yes Gait (FIM): 2 Distance (FIM): 1=up to 49 ft Distance: 45 Gait Persons Needed: 1 Gait Assistive Device: FWW Pt lists to the right with fatigue and tends to have excess forward lean that results in patient being at risk for forward fall. She walked 10ft x 2 trials, 45ft x 3 trials all with FWW and Min Assist for balance followed by w/c Exercises Seated Therapy Exercises: Ankle pumps, Sit to stand, Long arc quads Seated Reps: 10 Neuromuscular Worked sit to stand technique with education on hand placement and safety. Assessment Pt put forth good effort this session indicating this was a personal best for walking. PT Short Term Goals Short Term Goals Transfers (B,C,W/C) (FIM): 5 Gait (FIM): 1 Distance (FIM): 1=up to 49 ft Gait Distance Comment: 25' Gait Level of Assist: 3 Gait Assistive Device: FWW Wheelchair (FIM): 1 (achieved on 01/13/16) Wheelchair distance (FIM): 1=up to 49 ft Wheelchair Distance: 125' Wheelchair Level of Assist: 4 PT Packing Line Worker Goals Shelter Goals Transfers (B,C,W/C) (FIM): 5 Rollin Gait (FIM): 1 Gait distance (FIM): 1=up to 49 ft Distance: 45' Gait Level of Assist: 4 Gait Assistive Device: FWW Stairs (FIM): 1 # of Steps: 4 Stairs Level Of Assist: 4 PT Plan Problem List Problem List: Functional Strength, Safety, Balance, Gait, Transfer Treatment/Plan Treatment Plan: Continue Plan of Care Treatment Plan: Bed Mobility, Education, Functional Activity Enrrique, Functional Strength, Group Therapy, Gait, Safety, Therapeutic Exercise, Transfers Visits Per Week: 10-11 Minutes/Day (M-F): 60-90 Minutes/Day (Sat/[place]): PRN Safety Risks/Education Patient Education: Gait Training, Transfer Techniques Teaching Recipient: Patient Teaching Methods: Demonstration, Discussion Time/GCodes Time In: 1320 Time Out: 1350 Total Billed Treatment Time: 30 Total Billed Treatment visit, gait 20min, exercise 10min G Codes Necessary: No CR ANGELES PT Feb 01, 2016 14:39
--- NOTE | 2016-02-01 14:40 | Occupational Ther Daily Note ---
OT Current Status-Daily Note Subjective Pt lying in bed. Agreed to shower. No pain mention. Agreed to OT Appearance Alert, cooperative Mental Status/Objective Functional [place] Measure 0=Not Assessed/NA 4=Minimal Assistance 1=Total Assistance 5=Supervision or Setup 2=Maximal Assistance 6=Modified [place] 3=Moderate Assistance 7=Complete [place] ADL-Treatment Pt doff blouse at EOB. Mod A to pull blouse over head to take it off. Mod assist to take pants and socks off, standing at grab bar, pt helping to get pants over hips. Min A used to transfer pt from bed to w/c using FWW for support. Pt propelled herself to the bathroom, transferred from w/c to shower bench using grab bars Min A. Pt held hand held shower while OT washed hair.Pt stood min assist using grab bars for support for back perineal wash. Shower was interrupted due to pt coughing, inner cannula coughed out. OT notified nurse. Min A used to transfer pt from shower bench to w/c. Mod A used to assist pt to don blouse, socks, brief, pants, with pt helping to pull pants up. Min A used to transfer pt from w/c to bed using FWW for support. Initially 50% cues for hand placement during transfers but 0% cues by end of tx. Pt left in bed, call light in hand. Pt in care of RT. Functional [place] Measure 0=Not Assessed/NA 4=Minimal Assistance 1=Total Assistance 5=Supervision or Setup 2=Maximal Assistance 6=Modified [place] 3=Moderate Assistance 7=Complete IndependenceIRFPAI Quality Coding Scale 6 Independent with activity with or without an assistive device 5 Patient requires set up or clean up by helper. Patient completes activity by themselves 4 Supervision or touching assist (CGA). [place] provide cues , steadying assist 3 The helper provides less than half the effort to complete the activity 2 The helper provides more than half the effort to complete the activity 1 Dependent. The helper does all the effort to complete an activity 7 Patient refused to complete or attempt activity 9 The patient did not perform the activity before the current illness or injury 88 Not attempted due to Medical conditions or safety concerns Upper Body (FIM): 3 Lower Body Dressing (FIM): 3 Transfers (B, C, W/C) (FIM): 4 Shower Transfer(FIM): 4 Education OT Patient Education: Progress toward Goal/Update tx plan, Purpose of tx/ functional activities, Transfer techniques Teaching Recipient: Patient Teaching Methods: Discussion Response to Teaching: Verbalize Understanding, Return Demonstration, Reinforcement Needed OT Short Term Goals Short Term Goals Lower Body Dressing(FIM): 4 Toileting(FIM): 4 Transfers (B,C,W/C) (FIM): 5 Toilet/Commode Transfer(FIM): 4 Shower Transfer(FIM): 5 1=Demonstrate adherence to instructed precautions during ADL tasks. 2=Patient will verbalize/demonstrate understanding of assistive devices/ modifications for ADL. 3=Patient will improve strength/tolerance for activity to enable patient to perform ADL's. OT Stewardesses Teacher Goals Shelter Goals Eating (FIM): 1 Grooming(FIM): 6 Bathing(FIM): 6 Upper Body Dressing(FIM): 6 Lower Body Dressing(FIM): 5 Toileting(FIM): 5 Transfers (B,C,W/C) (FIM): 5 Toilet/Commode Transfer(FIM): 5 Shower Transfer(FIM): 5 Comprehension(FIM): 6 Expression (FIM): 5 Social Interaction(FIM): 5 Problem Solving(FIM): 5 Memory(FIM): 5 Additional Goals: 2-Verbalize Understanding, 3-ImproveStrength/Enrrique 1=Demonstrate adherence to instructed precautions during ADL tasks. 2=Patient will verbalize/demonstrate understanding of assistive devices/ modifications for ADL. 3=Patient will improve strength/tolerance for activity to enable patient to perform ADL's. OT Education/Plan Problem List/Assessment Pt would benefit from skilled OT to increase her independence in basic self care to allow her to return home safely Discharge Recommendations Plan/Recommendations: Continue POC Treatment Plan/Plan of Care Patient would benefit from OT for education, treatment and training to promote independence in ADL's, mobility, safety and/or upper extremity function for ADL' s. Plan of Care: ADL Retraining, Caregiver Training, Functional Mobility, Orthotic Fitting/Training, UE Funct Exercise/Act, UE Neuromus Re-Ed/Coord Visits Per Week: 10-11 Minutes/Day (M-F): 75-90 Minutes/Day (Sat/[place]): prn Agreement: Yes Rehab Potential: Guarded Time/GCodes Start Time: 08:30 Stop Time: 09:20 Total Time Billed (hr/min): 50 Billed Treatment Time visit ADL 50 min KELLY ATKINS OT Feb 01, 2016 14:40
--- NOTE | 2016-02-01 15:10 | Occupational Ther Daily Note ---
OT Current Status-Daily Note Subjective Pt lying in bed. No pain mentioned. Agreed OT. Appearance Alert, cooperative Mental Status/Objective Functional [place] Measure 0=Not Assessed/NA 4=Minimal Assistance 1=Total Assistance 5=Supervision or Setup 2=Maximal Assistance 6=Modified [place] 3=Moderate Assistance 7=Complete [place] ADL-Treatment Functional [place] Measure 0=Not Assessed/NA 4=Minimal Assistance 1=Total Assistance 5=Supervision or Setup 2=Maximal Assistance 6=Modified [place] 3=Moderate Assistance 7=Complete IndependenceIRFPAI Quality Coding Scale 6 Independent with activity with or without an assistive device 5 Patient requires set up or clean up by helper. Patient completes activity by themselves 4 Supervision or touching assist (CGA). [place] provide cues , steadying assist 3 The helper provides less than half the effort to complete the activity 2 The helper provides more than half the effort to complete the activity 1 Dependent. The helper does all the effort to complete an activity 7 Patient refused to complete or attempt activity 9 The patient did not perform the activity before the current illness or injury 88 Not attempted due to Medical conditions or safety concerns Other Treatment Pt walked about 5 feet to recliner with Min A using FWW for support, balance. Verbal cues used for hand placement. Pt used (yellow) theraband for strength 2 sets of 15 reps on each arm, working on shoulders and elbows. 1/2 lb weights used on each wrist for strengthening, endurance needed for ADLs, 2 sets of 12 reps. Skilled facilitation technique of place and hold to strengthen R shoulder flex/abd (3-/5), 10 reps. Pt left in chair, call light in hand. All needs met in room. Education OT Patient Education: Exercise program Teaching Recipient: Patient Teaching Methods: Demonstration, Discussion Response to Teaching: Verbalize Understanding, Return Demonstration OT Short Term Goals Short Term Goals Lower Body Dressing(FIM): 4 Toileting(FIM): 4 Transfers (B,C,W/C) (FIM): 5 Toilet/Commode Transfer(FIM): 4 Shower Transfer(FIM): 5 1=Demonstrate adherence to instructed precautions during ADL tasks. 2=Patient will verbalize/demonstrate understanding of assistive devices/ modifications for ADL. 3=Patient will improve strength/tolerance for activity to enable patient to perform ADL's. OT Shelter Goals Director Traffic And Planning Goals Eating (FIM): 1 Grooming(FIM): 6 Bathing(FIM): 6 Upper Body Dressing(FIM): 6 Lower Body Dressing(FIM): 5 Toileting(FIM): 5 Transfers (B,C,W/C) (FIM): 5 Toilet/Commode Transfer(FIM): 5 Shower Transfer(FIM): 5 Comprehension(FIM): 6 Expression (FIM): 5 Social Interaction(FIM): 5 Problem Solving(FIM): 5 Memory(FIM): 5 Additional Goals: 2-Verbalize Understanding, 3-ImproveStrength/Enrrique 1=Demonstrate adherence to instructed precautions during ADL tasks. 2=Patient will verbalize/demonstrate understanding of assistive devices/ modifications for ADL. 3=Patient will improve strength/tolerance for activity to enable patient to perform ADL's. OT Education/Plan Problem List/Assessment Pt would benefit from skilled OT to increase her independence in basic self care to allow her to return home safely Discharge Recommendations Plan/Recommendations: Continue POC Treatment Plan/Plan of Care Patient would benefit from OT for education, treatment and training to promote independence in ADL's, mobility, safety and/or upper extremity function for ADL' s. Plan of Care: ADL Retraining, Caregiver Training, Functional Mobility, Orthotic Fitting/Training, UE Funct Exercise/Act, UE Neuromus Re-Ed/Coord Visits Per Week: 10-11 Minutes/Day (M-F): 75-90 Minutes/Day (Sat/[place]): prn Agreement: Yes Rehab Potential: Guarded Time/GCodes Start Time: 12:50 Stop Time: 13:15 Total Time Billed (hr/min): 25 Billed Treatment Time visit EX 25 min KELLY ATKINS OT Feb 01, 2016 15:10
--- NOTE | 2016-02-01 16:04 | Physical Therapy Rehab Re-Cert ---
PT Re-Certification Form Physical Therapy Treatment Plan: Continue Plan of Care Bed Mobility, Education, Functional Activity Enrrique, Functional Strength, Group Therapy, Gait, Safety, Therapeutic Exercise, Transfers Patient needs continued skilled physical therapy intervention to work on bed mobility and transfers, balance and endurance, functional strengthening, stair training, gait training, wheelchair training, ROM, education, to improve her functional mobility and independence at home. Treatment Duration: 3 weeks # of days/week 5-6 Visits Per Week: 10-11 Minutes/Day (M-F): 60-90 Minutes/Day (Sat/[place]): PRN Patient and/or Family Agrees t: Yes Rehab Potential: Fair PT Short Term Goals Short Term Goals Transfers (B,C,W/C) (FIM): 5 Gait (FIM): 1 Distance (FIM): 1=up to 49 ft Gait Distance Comment: 25' Gait Level of Assist: 3 Gait Assistive Device: FWW Wheelchair (FIM): 1 (achieved on 01/13/16) Wheelchair distance (FIM): 1=up to 49 ft Wheelchair Distance: 125' Wheelchair Level of Assist: 4 PT Chcf Goals Chcf Goals Transfers (B,C,W/C) (FIM): 5 Gait (FIM): 1 Gait distance (FIM): 1=up to 49 ft Distance: 45' Gait Level of Assist: 4 Gait Assistive Device: FWW Stairs (FIM): 1 # of Steps: 4 Stairs Level Of Assist: 4 JUAN SMITH PT Feb 01, 2016 16:04
--- NOTE | 2016-02-01 17:02 | Occ Therapy Rehab Re-Cert ---
OT Re-Certification Form Plan of Care: ADL Retraining, Caregiver Training, Functional Mobility, Orthotic Fitting/Training, UE Funct Exercise/Act, UE Neuromus Re-Ed/Coord Pt has made progress and some STGs have been met but LTGs have not been met. medical issues also have delayed discharge. Continue same LTGs for 3 weeks Treatment Duration: 3 weeks # of days/week 5-6 days per week, 10-11 visits per week Minutes/Day (M-F): 75-90 Minutes/Day (Sat/[place]): prn Agreement: Yes Rehab Potential: Fair OT Short Term Goals Short Term Goals Lower Body Dressing(FIM): 4 (met sometimes) Toileting(FIM): 4 (not met) Transfers (B,C,W/C) (FIM): 5 (not met) Toilet/Commode Transfer(FIM): 4 (met) Shower Transfer(FIM): 5 (not met) 1=Demonstrate adherence to instructed precautions during ADL tasks. 2=Patient will verbalize/demonstrate understanding of assistive devices/ modifications for ADL. 3=Patient will improve strength/tolerance for activity to enable patient to perform ADL's. OT Waterworks Chief Engineer Goals Waterworks Chief Engineer Goals Time Frame: 3 weeks Eating (FIM): 1 Grooming(FIM): 6 Bathing(FIM): 6 Upper Body Dressing(FIM): 6 Lower Body Dressing(FIM): 5 Toileting(FIM): 5 Transfers (B,C,W/C) (FIM): 5 Toilet/Commode Transfer(FIM): 5 Shower Transfer(FIM): 5 Comprehension(FIM): 6 Expression (FIM): 5 Social Interaction(FIM): 5 Problem Solving(FIM): 5 Memory(FIM): 5 Continue with same LTGs Additional Goals: 2-Verbalize Understanding, 3-ImproveStrength/Enrrique 1=Demonstrate adherence to instructed precautions during ADL tasks. 2=Patient will verbalize/demonstrate understanding of assistive devices/ modifications for ADL. 3=Patient will improve strength/tolerance for activity to enable patient to perform ADL's. KELLY ATKINS OT Feb 01, 2016 17:02
[2016-02-01] MEDS: ENOXAPARIN 40 MG/0.4 ML (LOVENOX) SYR SC SCH (17:34)
[2016-02-01 18:41] VITALS: BP 101/61
[2016-02-01] MEDS: APAP 325 MG/10.15 ML LIQ (TYLENOL) UDC JT PRN (21:53)
[2016-02-01] MEDS: CATHETER FLUSH 10 ML SYR IV PRN (22:37)
[2016-02-02] MEDS: CATHETER FLUSH 10 ML SYR IV PRN ×2 (00:22→22:24)
[2016-02-02] MEDS: ONDANSETRON 4 MG/2 ML (SDV) Z0FRAN IVP SCH ×4 (00:22→18:09)
[2016-02-02] MEDS: RT-ALBUTEROL/IPRATROPIUM 3 ML (DUONEB) VIAL INH SCH ×4 (02:27→21:57)
[2016-02-02] MEDS: APAP 325 MG/10.15 ML LIQ (TYLENOL) UDC JT PRN ×2 (04:33→21:53)
[2016-02-02] MEDS: METOCLOPRAMIDE 10MG/10ML ORAL SOL(REGLAN) UDC PO SCH ×4 (06:40→21:53)
[2016-02-02 06:41] VITALS: BP 98/65
[2016-02-02] MEDS: LEVOFLOXACIN 750 MG/150 ML IV 150 ML IV SCH (06:41)
[2016-02-02] MEDS ORDERED: CEFEPIME HCL 2 GM (MAXIPIME) VIAL ONE ×2 (08:18→21:39)
[2016-02-02] MEDS ORDERED: NORMAL SALINE (BAXTER MINI) 50 ML IV ONE ×2 (08:18→21:39)
--- NOTE | 2016-02-02 09:04 | PM & R (SOAP) Progress Note ---
Subjective Subjective/Events-last exam Patient was seen in her room this AM.Patient min assist for transfers. Objective Exam Last Set of Vital Signs Vital Signs Date Time Temp Pulse Resp B/P Pulse Ox O2 Delivery O2 Flow Rate FiO2 02/02/16 06:41 97.1 89 20 98/65 94 Room Air Capillary Refill : I&O Intake and Output 02/02/16 00:00 Intake Total 2330 ml Output Total 1 ml Balance 2329 ml Intake Oral 0 ml IV Total 290 ml Tube Feeding 1290 ml Other 750 ml Urine/Stool Mix 1 ml # Voids 5 # Bowel Movements 5 General: Alert, Oriented X3, Cooperative, No Acute Distress HEENT: Atraumatic, PERRLA, EOMI, Mucous Memb Moist/[place] Neck: Other (Trach functioning) Lungs: Clear to Auscultation Heart: Regular Rate Abdomen: Normal Bowel Sounds, Soft, No Tenderness, Other (feeding tube in place ) Extremities: No Edema Neuro: Other (generalized weakness) Results Lab Microbiology 01/25/16 Blood Culture - Final, Complete No growth 01/27/16 C. difficile GDH Antigen & Toxins - Final, Complete 01/25/16 Gram Stain - Final, Complete 01/25/16 Sputum Culture - Final, Complete Pseudomonas Aeruginosa 01/26/16 Urine Culture - Final, Complete Enterococcus Faecium Pseudomonas Aeruginosa Assessment/Plan Assessment S/P crani and removal Met lesion from breast ca Dysphagia NPO on tube feeds by J Tube S/P trach on trach collar at night and with PMV during day-now with o2 by trach collar to maintain sats S/P Radiation Therapy course while on Swing bed anemia s/p transfusion 2 unis PRBCS intermittent nausea felt to be ralated to meds-Zofran scheduled-doing better with J Tube cleared Diarrhea multifactorial Lomotil and Benefiber on [id number] for cdif negative Recuurent pneumonia due to Vocal cord paralysis and secretions to complete course of IV antibiotics-doing better Plan Continue PT/OT/ST as tolerated Appreciate their notes and Specialists notes., Oral Thrush treated- Nystatin d/cd earlier during stay Current labs noted F/U with DR Bardales and Stew and Bhaskar ( Interventional Radiology)as needed Discharge on hold for now. Awaiting stool for cdif-done negative Case management to f/u re disposition once course of antibiotics completed. Day pass for holiday see orders,. Team Conference to be held later today-See report for full functional update and POC and ELOS Dr Gallo covering my service while I am away tomorrow 02-03-16 UZMA VILLALOBOS MD Feb 02, 2016 09:04
[2016-02-02] MEDS: CEFEPIME INJECTION 2,000 MG in NORMAL SALINE (BAXTER MINI) 50 ML IV SCH ×2 (09:38→21:52)
[2016-02-02] MEDS: MAGNESIUM OXIDE (MAG-OX)400 MG TAB JT SCH ×2 (09:39→18:09)
[2016-02-02] MEDS: aCETylcysteine 20% (MUCOMYST) 30ML SOLN VIAL INH SCH ×2 (09:40→21:00)
[2016-02-02] MEDS: BENEFIBER (FROM DIETARY) DOCUMENTATION PURPOSE ONLY PO SCH ×3 (10:19→21:53)
[2016-02-02] MEDS: FAMOTIDINE 20 MG (PEPCID) TABLET JT SCH ×2 (10:19→21:53)
[2016-02-02] MEDS: guaiFENesin SYRUP 100 MG/5 ML 10 ML (ROBITUSSIN SF) JT SCH ×4 (10:19→21:53)
[2016-02-02] MEDS: LACTOBACILLUS Acidoph/Bulgar (LACTINEX/FLORANEX) TAB JT SCH ×4 (10:19→21:53)
[2016-02-02] MEDS: DIPHENOXYLATE/ATROPINE 2.5MG/0.025MG (LOMOTIL) TAB JT SCH ×2 (10:19→21:53)
--- NOTE | 2016-02-02 10:21 | Speech Therapy Daily Note ---
Speech Daily Progress Note Subjective The patient was sitting upright in recliner upon entrance. The patient greeted the clinician appropriately and agreed to participate in dysphagia therapy on this date. To note, respiratory therapy was present for treatment session and aided with suctioning. Objective - The patient's SpO2% was 92% prior to bolus trials. The patient's O2 fluctuated between 86% and 91% during bolus trials. Patient's SpO2% returned to 98% following treatment by RT. * Yogurt was dyed green by the clinician to aid in the visualization of possible aspiration from the patient's tracheostomy tube. PO Bolus Trials: (puree) - A delayed cough, as well as, copious hypopharyngeal secretions and an increase in the patient's wet vocal quality was demonstrated following two, half teaspoon trials of puree (chin tuck with hard swallow, subsequent dry swallow). The patient was suctioned by RT following bolus trials. No green dye was suctioned from tracheostomy tube immediately following bolus trials. Following approximately two minutes, the patient expectorated green tinged secretions from the tracheostomy site with a spontaneous cough. Assessment Assessment Current Status: Fair Progress Treatment Plan Continue Plan of Care Communication Comprehension: 5 Expression: 5 Social Cognition Social Interaction: 5 Problem Solvin Memory: 5 Speech Short Term Goals Short Term Goals Short Term Goals 1. The patient will independently demonstrate laryngeal, pharyngeal, and base of tongue exercises. PROGRESSING Time Frame-STG: Two Weeks Speech Assistant Clinical Nurse Manager Goals Shelter Goals 1. The patient will tolerate PO trials of the least restrictive consistency without signs/symptoms of aspiration or laryngeal penetration. NOT APPROPRIATE AT THIS TIME 01/31/2016 Time Frame: Eight Weeks Comprehension: 6 Expression: 5 Social Interaction: 5 Problem Solvin Memory: 5 Speech-Plan Treatment Plan Speech Therapy Treatment Plan: Continue Plan of Care Treatment Duration: Six Weeks # of days/week 4 to 5 Visits Per Week: 4 to 5 Minutes/Day (M-F): 30 Rehab Potential: Fair Safety Risks/Education Teaching Recipient: Patient Teaching Methods: Discussion Response to Teaching: Verbalize Understanding, Reinforcement Needed Education Topics Provided: Results of Bolus Trials, Progress Time Speech Therapy Time In: 09:30 Speech Therapy Time Out: 10:00 Total Billed Time: 30 Billed Treatment Time 1 ASAEL GILBERT VORA Feb 02, 2016 10:21
--- NOTE | 2016-02-02 10:27 | Occupational Ther Daily Note ---
OT Current Status-Daily Note Subjective Pt lying in bed. Pt expressed how she had a restless night and unable to wake up. Pt stated she had clean clothes, no need to change clothes. No pain mentioned, Agreeable to OT. Appearance Alert, cooperative Mental Status/Objective Functional [place] Measure 0=Not Assessed/NA 4=Minimal Assistance 1=Total Assistance 5=Supervision or Setup 2=Maximal Assistance 6=Modified [place] 3=Moderate Assistance 7=Complete [place] ADL-Treatment Pt sat at the EOB SBA, then used FWW to walk to w/c, min A, 5 feet. Pt asked to be taken to the bathroom to use toilet. Pt education on possible use of BSC over toilet at home. Pt propelled herself into bathroom Min A. Toilet transfer - pt used grab bars to stand, turn and sit on toilet, min assist. Toileting - pulling brief, pants down mod assist. Pt managed to wash front perineal SBA. Mod A from OT to wash back perineal, with pt continuing to stand with FWW. Pt used grab bars to stand and transfer to w/c, min A. After practice, pt thought BSC over toilet would work for her at home. Pt used FWW to multi needle machine operator front of sink SBA, used L arm to turn water on. Pt brushed teeth, rinsed mouth, washed hands. Pt transported to gym per w/c. Pt worked on gross motor coordination activity, including grasp and release. Pt initially placed about 50% of beanbags with R hand but, with practice, was able to get 100% of bags in basket , placed in different locations. Consistently accurate with L hand. Pt wheeled back to room. Pt used FWW to walk to recliner, min A. Pt left sitting in recliner, call light in hand. Functional [place] Measure 0=Not Assessed/NA 4=Minimal Assistance 1=Total Assistance 5=Supervision or Setup 2=Maximal Assistance 6=Modified [place] 3=Moderate Assistance 7=Complete IndependenceIRFPAI Quality Coding Scale 6 Independent with activity with or without an assistive device 5 Patient requires set up or clean up by helper. Patient completes activity by themselves 4 Supervision or touching assist (CGA). [place] provide cues , steadying assist 3 The helper provides less than half the effort to complete the activity 2 The helper provides more than half the effort to complete the activity 1 Dependent. The helper does all the effort to complete an activity 7 Patient refused to complete or attempt activity 9 The patient did not perform the activity before the current illness or injury 88 Not attempted due to Medical conditions or safety concerns Eating (FIM): 1 Grooming (FIM): 5 Toileting (FIM): 2 Toilet/Commode Transfer (FIM): 4 Education OT Patient Education: Modified ADL techniques, Transfer techniques, Use of adapted equipment Teaching Recipient: Patient Teaching Methods: Demonstration Response to Teaching: Return Demonstration OT Short Term Goals Short Term Goals Lower Body Dressing(FIM): 4 (met sometimes) Toileting(FIM): 4 (not met) Transfers (B,C,W/C) (FIM): 5 (not met) Toilet/Commode Transfer(FIM): 4 (met) Shower Transfer(FIM): 5 (not met) 1=Demonstrate adherence to instructed precautions during ADL tasks. 2=Patient will verbalize/demonstrate understanding of assistive devices/ modifications for ADL. 3=Patient will improve strength/tolerance for activity to enable patient to perform ADL's. OT Halfway Goals Halfway Goals Eating (FIM): 1 Grooming(FIM): 6 Bathing(FIM): 6 Upper Body Dressing(FIM): 6 Lower Body Dressing(FIM): 5 Toileting(FIM): 5 Transfers (B,C,W/C) (FIM): 5 Toilet/Commode Transfer(FIM): 5 Shower Transfer(FIM): 5 Comprehension(FIM): 6 Expression (FIM): 5 Social Interaction(FIM): 5 Problem Solving(FIM): 5 Memory(FIM): 5 Continue with same LTGs Additional Goals: 2-Verbalize Understanding, 3-ImproveStrength/Enrrique 1=Demonstrate adherence to instructed precautions during ADL tasks. 2=Patient will verbalize/demonstrate understanding of assistive devices/ modifications for ADL. 3=Patient will improve strength/tolerance for activity to enable patient to perform ADL's. OT Education/Plan Problem List/Assessment Pt would benefit from skilled OT to increase her independence in basic self care to allow her to return home safely Discharge Recommendations Plan/Recommendations: Continue POC Treatment Plan/Plan of Care Patient would benefit from OT for education, treatment and training to promote independence in ADL's, mobility, safety and/or upper extremity function for ADL' s. Plan of Care: ADL Retraining, Caregiver Training, Functional Mobility, Orthotic Fitting/Training, UE Funct Exercise/Act, UE Neuromus Re-Ed/Coord Visits Per Week: 10-11 Minutes/Day (M-F): 75-90 Minutes/Day (Sat/[place]): prn Agreement: Yes Rehab Potential: Fair Time/GCodes Start Time: 08:30 Stop Time: 09:30 Total Time Billed (hr/min): 60 Billed Treatment Time Visit ADL 40, FA 20 min KELLY ATKINS OT Feb 02, 2016 10:27
[2016-02-02] MEDS: NITROFURANTOIN JT SCH ×4 (10:31→21:50)
--- NOTE | 2016-02-02 14:10 | Occupational Ther Daily Note ---
OT Current Status-Daily Note Subjective Pt lying in bed. Agreeable to OT. Appearance Alert, cooperative Mental Status/Objective Functional [place] Measure 0=Not Assessed/NA 4=Minimal Assistance 1=Total Assistance 5=Supervision or Setup 2=Maximal Assistance 6=Modified [place] 3=Moderate Assistance 7=Complete [place] ADL-Treatment Functional [place] Measure 0=Not Assessed/NA 4=Minimal Assistance 1=Total Assistance 5=Supervision or Setup 2=Maximal Assistance 6=Modified [place] 3=Moderate Assistance 7=Complete IndependenceIRFPAI Quality Coding Scale 6 Independent with activity with or without an assistive device 5 Patient requires set up or clean up by helper. Patient completes activity by themselves 4 Supervision or touching assist (CGA). [place] provide cues , steadying assist 3 The helper provides less than half the effort to complete the activity 2 The helper provides more than half the effort to complete the activity 1 Dependent. The helper does all the effort to complete an activity 7 Patient refused to complete or attempt activity 9 The patient did not perform the activity before the current illness or injury 88 Not attempted due to Medical conditions or safety concerns Other Treatment Transfer to [facility] with [facility] Min A. Pt transported to gym in [facility]. Retested violin mechanic strength: L 17, 13, 10 lb R 2, 3, 2 lb Compared to measurements taken 01/03 violin mechanic on L has improved but not on R. Pt reported that her R middle finger felt "jammed" and this kept her from making a full fist on the dynamometer Pinch L R Lateral 6 2 3 jaw domenica 4 2 Tip 2 1 Pinch on L is about the same as measurements taken 01/03. Increase in 3 jaw domenica pinch on R. Functionally, pt is demonstrating more grasp and pinch as shown by helping to pull pants up after toileting. 9 Hole Peg Test L :37 R :52 L speed is about the same as tests on 12/09 but R has increased significantly Pt returned to room, transferred to bed min assist, call light in hand, 4 rails up, all needs met. Education OT Patient Education: Progress toward Goal/Update tx plan Teaching Recipient: Patient Teaching Methods: Discussion Response to Teaching: Verbalize Understanding OT Short Term Goals Short Term Goals Lower Body Dressing(FIM): 4 (met sometimes) Toileting(FIM): 4 (not met) Transfers (B,C,W/C) (FIM): 5 (not met) Toilet/Commode Transfer(FIM): 4 (met) Shower Transfer(FIM): 5 (not met) 1=Demonstrate adherence to instructed precautions during ADL tasks. 2=Patient will verbalize/demonstrate understanding of assistive devices/ modifications for ADL. 3=Patient will improve strength/tolerance for activity to enable patient to perform ADL's. OT Care Home Goals Care Home Goals Eating (FIM): 1 Grooming(FIM): 6 Bathing(FIM): 6 Upper Body Dressing(FIM): 6 Lower Body Dressing(FIM): 5 Toileting(FIM): 5 Transfers (B,C,W/C) (FIM): 5 Toilet/Commode Transfer(FIM): 5 Shower Transfer(FIM): 5 Comprehension(FIM): 6 Expression (FIM): 5 Social Interaction(FIM): 5 Problem Solving(FIM): 5 Memory(FIM): 5 Continue with same LTGs Additional Goals: 2-Verbalize Understanding, 3-ImproveStrength/Enrrique 1=Demonstrate adherence to instructed precautions during ADL tasks. 2=Patient will verbalize/demonstrate understanding of assistive devices/ modifications for ADL. 3=Patient will improve strength/tolerance for activity to enable patient to perform ADL's. OT Education/Plan Problem List/Assessment Pt would benefit from skilled OT to increase her independence in basic self care to allow her to return home safely Discharge Recommendations Plan/Recommendations: Continue POC Treatment Plan/Plan of Care Patient would benefit from OT for education, treatment and training to promote independence in ADL's, mobility, safety and/or upper extremity function for ADL' s. Plan of Care: ADL Retraining, Caregiver Training, Functional Mobility, Orthotic Fitting/Training, UE Funct Exercise/Act, UE Neuromus Re-Ed/Coord Visits Per Week: 10-11 Minutes/Day (M-F): 75-90 Minutes/Day (Sat/[place]): prn Agreement: Yes Rehab Potential: Fair Time/GCodes Start Time: 13:00 Stop Time: 13:20 Total Time Billed (hr/min): 20 Billed Treatment Time visit, 20 minutes neuromotor KELLY ATKINS OT Feb 02, 2016 14:09
--- NOTE | 2016-02-02 14:41 | Physical Therapy Daily Note ---
PT Daily Note-Current Subjective Pt sitting in recliner upon arrival. Pt reports that her back and neck hurt from sitting in the chair. Pt agreed to PT. Pain Numeric Pain Scale: 4 Location: Dorsal Location Body Site: Neck Pain Description: Ache Mental Status Patient Orientation: Person, Place, Time, Situation Attachments: Other-See Comments Trach. Transfers Functional [place] Measure 0=Not Assessed/NA 4=Minimal Assistance 1=Total Assistance 5=Supervision or Setup 2=Maximal Assistance 6=Modified [place] 3=Moderate Assistance 7=Complete IndependenceIRFPAI Quality Coding Scale 6 Independent with activity with or without an assistive device 5 Patient requires set up or clean up by helper. Patient completes activity by themselves 4 Supervision or touching assist ([facility]). [place] provide cues , steadying assist 3 The helper provides less than half the effort to complete the activity 2 The helper provides more than half the effort to complete the activity 1 Dependent. The helper does all the effort to complete an activity 7 Patient refused to complete or attempt activity 9 The patient did not perform the activity before the current illness or injury 88 Not attempted due to Medical conditions or safety concerns Scootin Sit to/from Stand: 4 Weight Bearing Weight Bearing Restriction: Full Weight Bearing Location Restriction: LE Bilateral Gait Training Does the Patient Walk?: Yes Distance (FIM): 9=498-66 ft Distance: 20' X3 Gait Level of Assist: 4 Gait Persons Needed: 1 Gait Assistive Device: FWW Pt needs reminders to keep her gait slow or she has LOB. Pt fatigues easy but is able to walk 20' w/FWW with W/C following. Wheelchair Training Does the Pt Use a Wheelchair?: Yes Wheelchair Distance: 1=up to 49 ft Distance: 40' Wheelchair Level of Assist: 5 Type of Wheelchair: Manual Exercises Supine Ex: Ankle pumps, Quad Set, Heel Slides, Straight leg raise, Hip abd/add Supine Reps: 15 Seated Therapy Exercises: Ankle pumps, Sit to stand, Long arc quads, Hip flexion, Kicking activity, Hip abd/add Seated Reps: 15 Treatments Pt transfers from recliner to standing using FWW at [facility]. Pt walks approx. 20' but is nervous b/c if she speeds up she loses her balance and gets dizzy. Pt propels W/C to Therapy Gym and completes seated EX. Pt takes rest break then attempts walking again in gym using FWW at [facility] with W/C following. Pt walks 20 ' X2 using FWW at [facility]. Pt wants to return to room to rest in bed. Pt takes rest then completes supine Ex in bed. PT answers pt & family's questions on how pt is improving, what family might expect and [facility] Pt is left with all needs met at end of tx. Assessment Current Status: Good Progress Pt has shown great improvement. Pt is more independent with transfers and mobility. Pt walked farther and more independently than previous visits. PT Short Term Goals Short Term Goals Transfers (B,C,W/C) (FIM): 5 (not met) Gait (FIM): 1 Distance (FIM): 1=up to 49 ft Gait Distance Comment: 25' Gait Level of Assist: 3 Gait Assistive Device: FWW Wheelchair (FIM): 1 (achieved on 01/13/16) Wheelchair distance (FIM): 1=up to 49 ft Wheelchair Distance: 125' Wheelchair Level of Assist: 4 PT Detailer [employer] Goals Detailer [employer] Goals Transfers (B,C,W/C) (FIM): 5 Rollin Gait (FIM): 1 Gait distance (FIM): 1=up to 49 ft Distance: 45' Gait Level of Assist: 4 Gait Assistive Device: FWW Stairs (FIM): 1 # of Steps: 4 Stairs Level Of Assist: 4 PT Plan Problem List Problem List: Activity Tolerance, Functional Strength, Safety, Balance, Gait Treatment/Plan Treatment Plan: Continue Plan of Care Treatment Plan: Bed Mobility, Education, Functional Activity Enrrique, Functional Strength, Group Therapy, Gait, Safety, Therapeutic Exercise, Transfers Visits Per Week: 10-11 Minutes/Day (M-F): 60-90 Minutes/Day (Sat/[place]): PRN Safety Risks/Education Patient Education: Gait Training, Transfer Techniques, Correct Positioning, Safety Issues Teaching Recipient: Patient, Family Teaching Methods: Discussion Response to Teaching: Verbalize Understanding Time/GCodes Time In: 1100 Time Out: 1200 Total Billed Treatment Time: 60 Total Billed Treatment visit, EX X2 (30m), FA (15m) & GT (15m) LUISA DASILVA FILTER PLANT SUPERVISOR Feb 02, 2016 14:41
--- NOTE | 2016-02-02 15:15 | Physical Therapy Daily Note ---
PT Daily Note-Current Subjective Pt laying in bed upon arrival. Pt agreed to PT. Pain Numeric Pain Scale: 0-No Pain Location: No Pain Reported Mental Status Patient Orientation: Person, Place, Time, Situation Attachments: Other-See Comments Trach. Transfers Functional [place] Measure 0=Not Assessed/NA 4=Minimal Assistance 1=Total Assistance 5=Supervision or Setup 2=Maximal Assistance 6=Modified [place] 3=Moderate Assistance 7=Complete IndependenceIRFPAI Quality Coding Scale 6 Independent with activity with or without an assistive device 5 Patient requires set up or clean up by helper. Patient completes activity by themselves 4 Supervision or touching assist (CGA). [place] provide cues , steadying assist 3 The helper provides less than half the effort to complete the activity 2 The helper provides more than half the effort to complete the activity 1 Dependent. The helper does all the effort to complete an activity 7 Patient refused to complete or attempt activity 9 The patient did not perform the activity before the current illness or injury 88 Not attempted due to Medical conditions or safety concerns Exercises Supine Ex: Ankle pumps, Quad Set, Heel Slides, Straight leg raise, Hip abd/add Supine Reps: 15 Treatments Pt completed supine Ex in bed due to fatigue from Therapy today. Pt is left with all needs met at end of tx. Assessment Current Status: Fair Progress Pt is making progress but still fatigues due to Rx. PT Short Term Goals Short Term Goals Transfers (B,C,W/C) (FIM): 5 (not met) Gait (FIM): 1 Distance (FIM): 1=up to 49 ft Gait Distance Comment: 25' Gait Level of Assist: 3 Gait Assistive Device: FWW Wheelchair (FIM): 1 (achieved on 01/13/16) Wheelchair distance (FIM): 1=up to 49 ft Wheelchair Distance: 40' Wheelchair Level of Assist: 4 PT Space Systems Operations Manager Goals Space Systems Operations Manager Goals Transfers (B,C,W/C) (FIM): 5 Rollin Gait (FIM): 1 Gait distance (FIM): 1=up to 49 ft Distance: 45' Gait Level of Assist: 4 Gait Assistive Device: FWW Stairs (FIM): 1 # of Steps: 4 Stairs Level Of Assist: 4 PT Plan Problem List Problem List: Activity Tolerance, Functional Strength, Gait, Transfer Treatment/Plan Treatment Plan: Continue Plan of Care Treatment Plan: Bed Mobility, Education, Functional Activity Enrriqeu, Functional Strength, Group Therapy, Gait, Safety, Therapeutic Exercise, Transfers Visits Per Week: 10-11 Minutes/Day (M-F): 60-90 Minutes/Day (Sat/[place]): PRN Safety Risks/Education Patient Education: Gait Training, Transfer Techniques, Correct Positioning, Safety Issues Teaching Recipient: Patient Teaching Methods: Discussion Response to Teaching: Verbalize Understanding Time/GCodes Time In: 1400 Time Out: 1415 Total Billed Treatment Time: 15 Total Billed Treatment visit, EX (15m) LUISA DASILVA PTA Feb 02, 2016 15:15
[2016-02-02] MEDS: ENOXAPARIN 40 MG/0.4 ML (LOVENOX) SYR SC SCH (16:49)
[2016-02-02 18:07] VITALS: BP 103/69
[2016-02-02] MEDS: diphenhydrAMINE 25 MG TAB (BENADRYL) PO PRN (18:08)
[2016-02-03] MEDS: ONDANSETRON 4 MG/2 ML (SDV) Z0FRAN IVP SCH ×4 (00:39→17:33)
[2016-02-03] MEDS: CATHETER FLUSH 10 ML SYR IV PRN (00:48)
[2016-02-03] MEDS: diphenhydrAMINE 25 MG TAB (BENADRYL) PO PRN (02:03)
[2016-02-03] MEDS: RT-ALBUTEROL/IPRATROPIUM 3 ML (DUONEB) VIAL INH SCH ×4 (02:20→20:08)
[2016-02-03] MEDS: METOCLOPRAMIDE 10MG/10ML ORAL SOL(REGLAN) UDC PO SCH ×4 (05:36→22:01)
[2016-02-03] MEDS: LEVOFLOXACIN 750 MG/150 ML IV 150 ML IV SCH (05:37)
[2016-02-03 05:39] VITALS: BP 100/58
[2016-02-03] MEDS: aCETylcysteine 20% (MUCOMYST) 30ML SOLN VIAL INH SCH ×2 (07:30→20:08)
[2016-02-03] MEDS ORDERED: CEFEPIME HCL 2 GM (MAXIPIME) VIAL ONE ×2 (07:52→21:20)
[2016-02-03] MEDS ORDERED: NORMAL SALINE (BAXTER MINI) 50 ML IV ONE ×2 (07:52→21:20)
[2016-02-03] MEDS: guaiFENesin SYRUP 100 MG/5 ML 10 ML (ROBITUSSIN SF) JT SCH ×4 (09:07→22:02)
[2016-02-03] MEDS: FAMOTIDINE 20 MG (PEPCID) TABLET JT SCH (09:07)
[2016-02-03] MEDS: DIPHENOXYLATE/ATROPINE 2.5MG/0.025MG (LOMOTIL) TAB JT SCH ×2 (09:07→22:01)
[2016-02-03] MEDS: CEFEPIME INJECTION 2,000 MG in NORMAL SALINE (BAXTER MINI) 50 ML IV SCH ×2 (09:07→22:18)
[2016-02-03] MEDS: BENEFIBER (FROM DIETARY) DOCUMENTATION PURPOSE ONLY PO SCH ×3 (09:07→22:06)
[2016-02-03] MEDS: MAGNESIUM OXIDE (MAG-OX)400 MG TAB JT SCH ×2 (09:07→17:33)
[2016-02-03] MEDS: LACTOBACILLUS Acidoph/Bulgar (LACTINEX/FLORANEX) TAB JT SCH ×4 (09:07→22:01)
--- NOTE | 2016-02-03 09:25 | Progress Note (SOAP) ---
Subjective Subjective/Events-last exam PT REPORTS THAT SHE IS STILL FATIGUED, STILL HAVING SOME COUGH. Review of Systems General: No Chills Pulmonary: No Dyspnea Cardiovascular: No: Chest Pain Gastrointestinal: No: Abdominal Pain, Nausea Musculoskeletal: No: back pain Neurological: No: Weakness Objective Exam Vital Signs Date Time Temp Pulse Resp B/P Pulse Ox O2 Delivery O2 Flow Rate FiO2 02/03/16 07:40 Room Air 02/03/16 05:39 98.4 100 20 100/58 93 Room Air 02/03/16 02:20 92 Room Air 02/02/16 21:57 94 Room Air 02/02/16 20:15 Room Air 02/02/16 18:07 98.6 90 18 103/69 93 Room Air 02/02/16 15:48 96 Room Air 02/02/16 09:41 93 Room Air I & O 02/03/16 07:00 Intake Total 2770 ml Balance 2770 ml Capillary Refill : General Appearance: WD/WN HEENT: PERRL/EOMI Neck: Full Range of Motion Respiratory: Chest Non Tender Lungs Clear Cardiovascular: Regular Rate, Rhythm Gastrointestinal: normal bowel sounds non tender soft no organomegaly no pulsatile mass Extremity: Normal Capillary Refill No Pedal Edema Neurologic/Psychiatric: Alert Oriented x3 No Motor/Sensory Deficits Skin: Normal Color Lymphatic: No Adenopathy Results Lab Microbiology 01/25/16 Blood Culture - Final, Complete No growth 01/27/16 C. difficile GDH Antigen & Toxins - Final, Complete 01/25/16 Gram Stain - Final, Complete 01/25/16 Sputum Culture - Final, Complete Pseudomonas Aeruginosa 01/26/16 Urine Culture - Final, Complete Enterococcus Faecium Pseudomonas Aeruginosa Assessment/Plan Assessment/Plan Assess & Plan/Chief Complaint Pseudomonal pneumonia Aspiration pneumonia Metastatic breast cancer Post-operative generalized weakness Feeding tube status Blocked J-tube Underweight Pseudomonal pneumonia - Aspiration pneumonia - continue with head of bed elevated at 30 degrees. 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 Bardales. Weakness - continue with pt/ot/speech/rec therapy. Feeding tube -continue with current feedings. Diagnosis/Problems: Clinical Quality Measures DVT/VTE Risk/Contraindication: Risk Factor Score Per Nursin RFS Level Per Nursing on Admit: 4+=Very High BERTA TINOCO MD Feb 03, 2016 09:25
--- NOTE | 2016-02-03 09:41 | Speech Therapy Daily Note ---
Speech Daily Progress Note Subjective The patient was repositioned upright in bed upon entrance. The patient greeted the clinician appropriately and agreed to participate in dysphagia therapy on this date. Objective * Yogurt was dyed green by the clinician to aid in the visualization of possible aspiration from the patient's tracheostomy tube. PO Bolus Trials: (puree) - A delayed cough, as well as, copious hypopharyngeal secretions and an increase in the patient's wet vocal quality was demonstrated following three, half teaspoon trials of puree (chin tuck with hard swallow, subsequent dry swallow). The patient was suctioned by ST following bolus trials. No green dye was suctioned from tracheostomy tube immediately following bolus trials. Dysphagia Exercises: The patient demonstrated fair to good accuracy with dysphagia exercises on this date. Ten repetitions of base of tongue, pharyngeal contraction, and laryngeal elevation exercises were completed. Frequent breaks were provided for rest. Assessment Assessment Current Status: Fair Progress Treatment Plan Continue Plan of Care Communication Comprehension: 5 Expression: 5 Social Cognition Social Interaction: 5 Problem Solvin Memory: 5 Speech Short Term Goals Short Term Goals Short Term Goals 1. The patient will independently demonstrate laryngeal, pharyngeal, and base of tongue exercises. PROGRESSING Time Frame-STG: Two Weeks Speech Filler Mixer Goals [facility] Goals 1. The patient will tolerate PO trials of the least restrictive consistency without signs/symptoms of aspiration or laryngeal penetration. INITIATED 2015 Time Frame: Eight Weeks Comprehension: 6 Expression: 5 Social Interaction: 5 Problem Solvin Memory: 5 Speech-Plan Treatment Plan Speech Therapy Treatment Plan: Continue Plan of Care Treatment Duration: Feb 16, 2016 # of days/week 4 to 5 Visits Per Week: 4 to 5 Minutes/Day (M-F): 30 Rehab Potential: Fair Safety Risks/Education Teaching Recipient: Patient Teaching Methods: Discussion Response to Teaching: Verbalize Understanding, Reinforcement Needed Education Topics Provided: Results of Bolus Trials Time Speech Therapy Time In: 08:30 Speech Therapy Time Out: 09:00 Total Billed Time: 30 Billed Treatment Time ASAEL Curran [facility]IL[facility] Feb 03, 2016 09:41
[2016-02-03] MEDS: methylPREDNISolone 125 MG (Solu-MEDROL) VIAL IVP SCH ×3 (10:00→17:33)
[2016-02-03] MEDS: FAMOTIDINE 20MG/2ML IV (PEPCID) IVP SCH ×2 (10:01→22:17)
[2016-02-03] MEDS: diphenhydrAMINE 50 MG/ML INJ (BENADRYL) IVP SCH ×4 (10:01→22:15)
[2016-02-03] MEDS: LINEZOLID IVPB 300 ML IV SCH ×2 (11:15→23:04)
--- NOTE | 2016-02-03 11:45 | Occupational Ther Daily Note ---
OT Current Status-Daily Note Subjective Pt lying bed. Pt stated she had clean clothes and no need to change. Agreeable to OT. Doctor arrived shortly after therapy began to check pt status. pharmacy called for consultation due to rash. Appearance Alert, cooperative Mental Status/Objective Functional [place] Measure 0=Not Assessed/NA 4=Minimal Assistance 1=Total Assistance 5=Supervision or Setup 2=Maximal Assistance 6=Modified [place] 3=Moderate Assistance 7=Complete [place] ADL-Treatment Pt scooted to EOB asked to give her time to rub lotion on legs,arms, abdomen. Min A to transfer Pt from bed to w/c with FWW. Pt propelled herself to the bathroom with Min A. Toileting with Mod A to doff brief, pants. Pt washed front perineal while sitting on tall toilet. Today, pt required Mod A from OT to wash buttocks while pt holding on to grab bars.This is a new activity for pt. FWW placed in front of sink for support. Pt washed face, hands, brushed teeth , brushed hair Min A. Pt propelled herself next to bed. Min A to transfer pt from w/c to bed. Verbal cues for hand placement. Pt left in bed, call light in hand. All needs met. Functional [place] Measure 0=Not Assessed/NA 4=Minimal Assistance 1=Total Assistance 5=Supervision or Setup 2=Maximal Assistance 6=Modified [place] 3=Moderate Assistance 7=Complete IndependenceIRFPAI Quality Coding Scale 6 Independent with activity with or without an assistive device 5 Patient requires set up or clean up by helper. Patient completes activity by themselves 4 Supervision or touching assist (CGA). [place] provide cues , steadying assist 3 The helper provides less than half the effort to complete the activity 2 The helper provides more than half the effort to complete the activity 1 Dependent. The helper does all the effort to complete an activity 7 Patient refused to complete or attempt activity 9 The patient did not perform the activity before the current illness or injury 88 Not attempted due to Medical conditions or safety concerns Education OT Patient Education: Progress toward Goal/Update tx plan Teaching Recipient: Patient Teaching Methods: Discussion Response to Teaching: Verbalize Understanding, Return Demonstration OT Short Term Goals Short Term Goals Lower Body Dressing(FIM): 4 (met sometimes) Toileting(FIM): 4 (not met) Transfers (B,C,W/C) (FIM): 5 (not met) Toilet/Commode Transfer(FIM): 4 (met) Shower Transfer(FIM): 5 (not met) 1=Demonstrate adherence to instructed precautions during ADL tasks. 2=Patient will verbalize/demonstrate understanding of assistive devices/ modifications for ADL. 3=Patient will improve strength/tolerance for activity to enable patient to perform ADL's. OT Sorter Operator Goals Detention Goals Eating (FIM): 1 Grooming(FIM): 6 Bathing(FIM): 6 Upper Body Dressing(FIM): 6 Lower Body Dressing(FIM): 5 Toileting(FIM): 5 Transfers (B,C,W/C) (FIM): 5 Toilet/Commode Transfer(FIM): 5 Shower Transfer(FIM): 5 Comprehension(FIM): 6 Expression (FIM): 5 Social Interaction(FIM): 5 Problem Solving(FIM): 5 Memory(FIM): 5 Continue with same LTGs Additional Goals: 2-Verbalize Understanding, 3-ImproveStrength/Enrrique 1=Demonstrate adherence to instructed precautions during ADL tasks. 2=Patient will verbalize/demonstrate understanding of assistive devices/ modifications for ADL. 3=Patient will improve strength/tolerance for activity to enable patient to perform ADL's. OT Education/Plan Problem List/Assessment Pt would benefit from skilled OT to increase her independence in basic self care to allow her to return home safely Discharge Recommendations Plan/Recommendations: Continue POC Treatment Plan/Plan of Care Patient would benefit from OT for education, treatment and training to promote independence in ADL's, mobility, safety and/or upper extremity function for ADL' s. Plan of Care: ADL Retraining, Caregiver Training, Functional Mobility, Orthotic Fitting/Training, UE Funct Exercise/Act, UE Neuromus Re-Ed/Coord Visits Per Week: 10-11 Minutes/Day (M-F): 75-90 Minutes/Day (Sat/[place]): prn Agreement: Yes Rehab Potential: Fair Time/GCodes Start Time: 09:15 Stop Time: 10:00 Total Time Billed (hr/min): 45 Billed Treatment Time visit, ADL 45 min CONCEPCIÓN BAKER OT Feb 03, 2016 11:45
--- NOTE | 2016-02-03 14:46 | Physical Therapy Daily Note ---
PT Daily Note-Current Subjective Pt supine in bed upon arrival. Pt reports having rash head to toe to nursing and was given Benadryl to manage itching. This made the pt very drowsy. Pt agreed to PT. Pain Numeric Pain Scale: 0-No Pain Location: No Pain Reported Mental Status Patient Orientation: Person, Listless Attachments: Other-See Comments Trach. Transfers Functional [place] Measure 0=Not Assessed/NA 4=Minimal Assistance 1=Total Assistance 5=Supervision or Setup 2=Maximal Assistance 6=Modified [place] 3=Moderate Assistance 7=Complete IndependenceIRFPAI Quality Coding Scale 6 Independent with activity with or without an assistive device 5 Patient requires set up or clean up by helper. Patient completes activity by themselves 4 Supervision or touching assist (CGA). [place] provide cues , steadying assist 3 The helper provides less than half the effort to complete the activity 2 The helper provides more than half the effort to complete the activity 1 Dependent. The helper does all the effort to complete an activity 7 Patient refused to complete or attempt activity 9 The patient did not perform the activity before the current illness or injury 88 Not attempted due to Medical conditions or safety concerns Scootin Supine to/from Sit: 4 Exercises Supine Ex: Ankle pumps, Quad Set, Heel Slides, Straight leg raise, Hip abd/add Supine Reps: 20 Treatments Pt c/o drowsiness and has trouble staying awake. Pt completes supine EX in bed (2 sets of 20 each). Pt has several rest breaks due to fatigue during tx. Pt then transfers from supine to EOB and sits for 3m before getting fatigued and needing to return to supine and rest. Pt is left with all needs met at end of tx. Assessment Current Status: Fair Progress Pt completes what she can while being so drowsy. Pt wants to get home. PT Short Term Goals Short Term Goals Transfers (B,C,W/C) (FIM): 5 (not met) Gait (FIM): 1 Distance (FIM): 1=up to 49 ft Gait Distance Comment: 25' Gait Level of Assist: 3 Gait Assistive Device: FWW Wheelchair (FIM): 1 (achieved on 01/13/16) Wheelchair distance (FIM): 1=up to 49 ft Wheelchair Distance: 40' Wheelchair Level of Assist: 4 PT Long-Term Goals Flagsetter Goals Transfers (B,C,W/C) (FIM): 5 Rollin Gait (FIM): 1 Gait distance (FIM): 1=up to 49 ft Distance: 45' Gait Level of Assist: 4 Gait Assistive Device: FWW Stairs (FIM): 1 # of Steps: 4 Stairs Level Of Assist: 4 PT Plan Problem List Problem List: Activity Tolerance, Functional Strength, Gait, Transfer Treatment/Plan Treatment Plan: Continue Plan of Care Treatment Plan: Bed Mobility, Education, Functional Activity Enrrique, Functional Strength, Group Therapy, Gait, Safety, Therapeutic Exercise, Transfers Visits Per Week: 10-11 Minutes/Day (M-F): 60-90 Minutes/Day (Sat/[place]): PRN Safety Risks/Education Patient Education: Gait Training, Transfer Techniques, Correct Positioning, Safety Issues Teaching Recipient: Patient Teaching Methods: Discussion Response to Teaching: Verbalize Understanding Time/GCodes Time In: 1030 Time Out: 1115 Total Billed Treatment Time: 45 Total Billed Treatment visit, EX X2 (30m) & FA (15m) LUISA DASILVA PTA Feb 03, 2016 14:46
--- NOTE | 2016-02-03 14:47 | Therapy Group Daily Note ---
Therapy Daily Group Note Exercises LE Seated Exercise, UE Exercise Other/Notes Pt actively participated in OT/PT group. Pt transported to [facility] for group via w/c. Group consisted of introduction (name, place born, how deep childhood snowfall), socialization, memory strategies with activity, problem solving tasks and UE/LE seated exercises. Pt was able to contribute to group discussions appropriately. When given a category pt was able to ask pertinent questions to describe topic. Pt demonstrated good memory strategies with activity. UE AROM decreased though pt was able to complete movements WFL. Pt was transported back to room via w/c and laid in bed. Call light/phone and phone in hand. All needs met in room. Start Time: 13:00 Stop Time: 14:15 Total Billed Treatment Time: 75 Total Billed Treatment 1-GRP HUMBERTO LUNA Feb 03, 2016 14:47
--- NOTE | 2016-02-03 14:55 | Progress Note (SOAP) ---
Subjective Subjective/Events-last exam Developed skin rash most likely to nitrofurantoin; Looking better after it was discontinued; Objective Exam Vital Signs Date Time Temp Pulse Resp B/P Pulse Ox O2 Delivery O2 Flow Rate FiO2 02/03/16 08:00 Room Air 02/03/16 07:40 Room Air 02/03/16 05:39 98.4 100 20 100/58 93 Room Air 02/03/16 02:20 92 Room Air 02/02/16 21:57 94 Room Air 02/02/16 20:15 Room Air 02/02/16 18:07 98.6 90 18 103/69 93 Room Air 02/02/16 15:48 96 Room Air I & O 02/03/16 07:00 Intake Total 2770 ml Balance 2770 ml Capillary Refill : General Appearance: Chronically ill HEENT: PERRL/EOMI TMs Normal Neck: Non Tender Supple Other (tracheostomy tube in place;) Respiratory: Crackles Cardiovascular: No JVD Tachycardia Gastrointestinal: normal bowel sounds non tender soft no organomegaly other ( feeding tube in place;) Results Lab Microbiology 01/25/16 Blood Culture - Final, Complete No growth 01/27/16 C. difficile GDH Antigen & Toxins - Final, Complete 01/25/16 Gram Stain - Final, Complete 01/25/16 Sputum Culture - Final, Complete Pseudomonas Aeruginosa 01/26/16 Urine Culture - Final, Complete Enterococcus Faecium Pseudomonas Aeruginosa Assessment/Plan Assessment/Plan Assess & Plan/Chief Complaint 1. Recurrent Pseudomonas pneumonia-- a. Although the second Pseudomonas culture shows sensitivity to Ciprofloxacin, the initial Pseudomonas strain cultured from her sputum was only intermediate to Ciprofloxacin; the latest (third) culture again shows Pseudomonas. This Pseudomonas culture is resistant to Ciprofloxacin and to Cefepime; It is intermediate to Meropenem and to Amikacin. b. New lung infiltrate that developed while patient was on single agent coverage--coverage was expanded with addition of Cefepime ; continue current regimen of Levaquin and cefepime. Patient has clinically improved and white count is down to 6.0, from 16,000. Given the improvement in the current clinical setting as well as the implications of changing her therapy, at this time we will continue both Levaquin and cefepime and continue to monitor her clinical status. The Levaquin should be continued for the entire duration that cefepime is being administered, noting that a change in clinical status may prompt a change in her antibiotic regimen. 2. Leukocytosis--resolved since combination antibiotics were restarted as discussed above. 3. Urine Culture-- Urine is growing enterococcus and Pseudomonas; the enterococcus species is a VRE but is sensitive to nitrofurantoin and linezolid. a. She is currently asymptomatic and is likely colonized with many organisms. b. She does not swallow pills and JPEG tube was recently unclogged. c. We will monitor her for now and order the nitrofurantoin elixir to have it available in the pharmacy on Sunday (earliest day it will arrive) ; 4. History of brain metastasis, status post resection at [facility] October 2015--Whole brain radiation completed on 01/04/16; a. Decadron has been tapered off. 5. Right breast cancer-infiltrating mammary cancer T2 N3b M0, Stage IIIC poorly differentiated high-grade ER 40 percent , OR negative Ki-67, 20 percent HER-2/linda 3+ positive, luminal B subtype; adjuvant chemotherapy, radiation and 1 year of trastuzumab completed on 09/14/15. a. Faslodex 500mg day 1 has been given on 12/22/15; b. Faslodex 500 mg day 15 given on 01/05/16 and day 29 (+1) was given 01/20/16; Next dose due 4 weeks from 01/19; 6. Vocal cord paralysis/dysphagia--patient has JPEG feeding tube and gastroscopy lumen is being used; a. Barium swallow done 01/04/16 positive for aspiration; b. J PEG tube is currently functioning well after being unclogged by interventional radiologist. Nausea has improved. 7. Debility--patient is receiving PT and OT to optimize functional status 8. Dr. Sam will cover from 02/03 until 02/07 at [address] Serrano will be cover from 02/07- Feb 14, 2016. Diagnosis/Problems: Clinical Quality Measures DVT/VTE Risk/Contraindication: Risk Factor Score Per Nursin RFS Level Per Nursing on Admit: 4+=Very High ONESIMO HUFFMAN MD Feb 03, 2016 14:55
[2016-02-03] MEDS: ENOXAPARIN 40 MG/0.4 ML (LOVENOX) SYR SC SCH (16:21)
[2016-02-03 18:15] VITALS: BP 107/68
[2016-02-04] MEDS: ONDANSETRON 4 MG/2 ML (SDV) Z0FRAN IVP SCH ×4 (00:20→17:48)
[2016-02-04] MEDS: methylPREDNISolone 125 MG (Solu-MEDROL) VIAL IVP SCH ×4 (00:20→17:48)
[2016-02-04] MEDS: diphenhydrAMINE 50 MG/ML INJ (BENADRYL) IVP SCH ×6 (01:52→21:25)
[2016-02-04] MEDS: RT-ALBUTEROL/IPRATROPIUM 3 ML (DUONEB) VIAL INH SCH ×4 (02:42→20:50)
[2016-02-04] MEDS: METOCLOPRAMIDE 10MG/10ML ORAL SOL(REGLAN) UDC PO SCH ×4 (07:02→21:26)
[2016-02-04 07:10] VITALS: BP 107/69
[2016-02-04] MEDS ORDERED: CEFEPIME HCL 2 GM (MAXIPIME) VIAL ONE (08:00)
[2016-02-04] MEDS ORDERED: NORMAL SALINE (BAXTER MINI) 50 ML IV ONE (08:00)
[2016-02-04] MEDS: aCETylcysteine 20% (MUCOMYST) 30ML SOLN VIAL INH SCH ×2 (08:00→20:50)
[2016-02-04] MEDS: guaiFENesin SYRUP 100 MG/5 ML 10 ML (ROBITUSSIN SF) JT SCH ×4 (08:41→21:25)
[2016-02-04] MEDS: DIPHENOXYLATE/ATROPINE 2.5MG/0.025MG (LOMOTIL) TAB JT SCH ×2 (08:41→21:25)
[2016-02-04] MEDS: FAMOTIDINE 20MG/2ML IV (PEPCID) IVP SCH ×2 (08:41→21:21)
[2016-02-04] MEDS: CEFEPIME INJECTION 2,000 MG in NORMAL SALINE (BAXTER MINI) 50 ML IV SCH (08:42)
[2016-02-04] MEDS: MAGNESIUM OXIDE (MAG-OX)400 MG TAB JT SCH ×2 (08:42→17:49)
[2016-02-04] MEDS: LACTOBACILLUS Acidoph/Bulgar (LACTINEX/FLORANEX) TAB JT SCH ×4 (08:42→21:25)
[2016-02-04] MEDS: BENEFIBER (FROM DIETARY) DOCUMENTATION PURPOSE ONLY PO SCH ×3 (08:42→21:25)
--- NOTE | 2016-02-04 09:00 | Speech Therapy Daily Note ---
Speech Daily Progress Note Subjective The patient was laying in bed upon entrance. The patient was agreeable to ST on this date. Objective Dysphagia Exercises: The patient demonstrated fair to good accuracy with dysphagia exercises on this date. Patient continues to require mild to moderate motivation for completion. Patient completed ten repetitions of base of tongue, pharyngeal contraction, and laryngeal elevation exercises. Assessment Assessment Current Status: Fair Progress Treatment Plan Continue Plan of Care Communication Comprehension: 5 Expression: 5 Social Cognition Social Interaction: 5 Problem Solvin Memory: 5 Speech Short Term Goals Short Term Goals Short Term Goals 1. The patient will independently demonstrate laryngeal, pharyngeal, and base of tongue exercises. PROGRESSING Time Frame-STG: Two Weeks Speech Rotary Soil Stabilizer Goals Custodial Goals 1. The patient will tolerate PO trials of the least restrictive consistency without signs/symptoms of aspiration or laryngeal penetration. INITIATED 2015 Time Frame: Eight Weeks Comprehension: 6 Expression: 5 Social Interaction: 5 Problem Solvin Memory: 5 Speech-Plan Treatment Plan Speech Therapy Treatment Plan: Continue Plan of Care Treatment Duration: Feb 16, 2016 # of days/week 4 to 5 Visits Per Week: 4 to 5 Minutes/Day (M-F): 30 Rehab Potential: Fair Safety Risks/Education Teaching Recipient: Patient Teaching Methods: Demonstration, Handout Response to Teaching: Return Demonstration, Reinforcement Needed Education Topics Provided: Dysphagia Exercises Time Speech Therapy Time In: 08:30 Speech Therapy Time Out: 09:00 Total Billed Time: 30 Billed Treatment Time Bina ASAEL GILBERT VORA Feb 04, 2016 09:00
[2016-02-04] MEDS: LINEZOLID IVPB 300 ML IV SCH ×2 (09:25→21:19)
--- NOTE | 2016-02-04 11:04 | Physical Therapy Daily Note ---
PT Daily Note-Current Subjective Agreeable. Looking forward to a home visit this weekend. Transfers Functional [place] Measure 0=Not Assessed/NA 4=Minimal Assistance 1=Total Assistance 5=Supervision or Setup 2=Maximal Assistance 6=Modified [place] 3=Moderate Assistance 7=Complete IndependenceIRFPAI Quality Coding Scale 6 Independent with activity with or without an assistive device 5 Patient requires set up or clean up by helper. Patient completes activity by themselves 4 Supervision or touching assist (CGA). [place] provide cues , steadying assist 3 The helper provides less than half the effort to complete the activity 2 The helper provides more than half the effort to complete the activity 1 Dependent. The helper does all the effort to complete an activity 7 Patient refused to complete or attempt activity 9 The patient did not perform the activity before the current illness or injury 88 Not attempted due to Medical conditions or safety concerns Transfers (B, C, W/C) (FIM): 4 Scootin Rollin Supine to/from Sit: 6 Sit to/from Stand: 4 (close CGA) Bed to/from Chair: 4 (min to CGA with FWW ) Gait Training Gait (FIM): 2 Distance (FIM): 3=351-68 ft Distance: 60 ft and 65 ft Gait Level of Assist: 3 (min to mod assist with close guarding; followed closely by wheelchair) Gait Assistive Device: FWW ataxic and unsteady gait. Needs close assist for safety. Decreased coordination of LE's. Wheelchair Training Does the Pt Use a Wheelchair?: Yes Wheelchair (FIM): 6 Wheelchair Distance: 3=150 ft Distance: 150 ft x 2 Type of Wheelchair: Manual Exercises NuStep Minutes: 10 (To increase functional act tolerance and strength) Assessment Current Status: Good Progress Needs assist with gait and does fatigue. Only needs CGA-light min assist with SPT with FWW. PT Short Term Goals Short Term Goals Transfers (B,C,W/C) (FIM): 5 (not met) Gait (FIM): 1 Distance (FIM): 1=up to 49 ft Gait Distance Comment: 25' Gait Level of Assist: 3 Gait Assistive Device: FWW Wheelchair (FIM): 1 (achieved on 01/13/16) Wheelchair distance (FIM): 1=up to 49 ft Wheelchair Distance: 40' Wheelchair Level of Assist: 4 PT Custodial Goals Custodial Goals Transfers (B,C,W/C) (FIM): 5 Rollin Gait (FIM): 1 Gait distance (FIM): 1=up to 49 ft Distance: 45' Gait Level of Assist: 4 Gait Assistive Device: FWW Stairs (FIM): 1 # of Steps: 4 Stairs Level Of Assist: 4 PT Plan Problem List Problem List: Activity Tolerance, Functional Strength, Safety, Balance, Gait, Transfer, Bed Mobility Treatment/Plan Treatment Plan: Continue Plan of Care Treatment Plan: Bed Mobility, Education, Functional Activity Enrrique, Functional Strength, Group Therapy, Gait, Safety, Therapeutic Exercise, Transfers Visits Per Week: 10-11 Minutes/Day (M-F): 60-90 Minutes/Day (Sat/[place]): PRN Safety Risks/Education Patient Education: Transfer Techniques Teaching Recipient: Patient Teaching Methods: Discussion Response to Teaching: Reinforcement Needed reminders for hand placement. Time/GCodes Time In: 1015 Time Out: 1100 Total Billed Treatment Time: 45 Total Billed Treatment visit GT 20 EX 10 WC 15 HUMBERTO AQUINO PT Feb 04, 2016 11:04
--- NOTE | 2016-02-04 11:25 | Occupational Ther Daily Note ---
OT Current Status-Daily Note Subjective Pt lying in bed. Pt stated she would rather have a sponge bath than a shower due to the medications she was given the day before. Medications made her feel weak. Agreeable to OT. Appearance Alert, cooperative Mental Status/Objective Functional [place] Measure 0=Not Assessed/NA 4=Minimal Assistance 1=Total Assistance 5=Supervision or Setup 2=Maximal Assistance 6=Modified [place] 3=Moderate Assistance 7=Complete [place] ADL-Treatment Pt scooted to EOB. Using FWW pt transfered to BSC with CGA. Pt able to wash front/perineal while sitting on BSC. Pt stood while holding on to FWW while OT washes back/perineal CGA. Pt transferred back to EOB/CGA. Pt washed/ dried all body parts except back side. Mod A to don brief, pants, socks, blouse. Min resistive Theraband used for strength, 2 sets of 15 reps on each arm. Min resistive foam used for hand grasping squeezing 2 sets 15 reps. Verbal cues used for hand placement.Pt left in bed/30 degrees up right. Call light in hand. All needs met. Functional [place] Measure 0=Not Assessed/NA 4=Minimal Assistance 1=Total Assistance 5=Supervision or Setup 2=Maximal Assistance 6=Modified [place] 3=Moderate Assistance 7=Complete IndependenceIRFPAI Quality Coding Scale 6 Independent with activity with or without an assistive device 5 Patient requires set up or clean up by helper. Patient completes activity by themselves 4 Supervision or touching assist (CGA). [place] provide cues , steadying assist 3 The helper provides less than half the effort to complete the activity 2 The helper provides more than half the effort to complete the activity 1 Dependent. The helper does all the effort to complete an activity 7 Patient refused to complete or attempt activity 9 The patient did not perform the activity before the current illness or injury 88 Not attempted due to Medical conditions or safety concerns Education OT Patient Education: Progress toward Goal/Update tx plan Teaching Recipient: Patient Teaching Methods: Demonstration, Discussion Response to Teaching: Verbalize Understanding, Return Demonstration, Reinforcement Needed OT Short Term Goals Short Term Goals Lower Body Dressing(FIM): 4 (met sometimes) Toileting(FIM): 4 (not met) Transfers (B,C,W/C) (FIM): 5 (not met) Toilet/Commode Transfer(FIM): 4 (met) Shower Transfer(FIM): 5 (not met) 1=Demonstrate adherence to instructed precautions during ADL tasks. 2=Patient will verbalize/demonstrate understanding of assistive devices/ modifications for ADL. 3=Patient will improve strength/tolerance for activity to enable patient to perform ADL's. OT Detention Goals [employer] Inspector Goals Eating (FIM): 1 Grooming(FIM): 6 Bathing(FIM): 6 Upper Body Dressing(FIM): 6 Lower Body Dressing(FIM): 5 Toileting(FIM): 5 Transfers (B,C,W/C) (FIM): 5 Toilet/Commode Transfer(FIM): 5 Shower Transfer(FIM): 5 Comprehension(FIM): 6 Expression (FIM): 5 Social Interaction(FIM): 5 Problem Solving(FIM): 5 Memory(FIM): 5 Continue with same LTGs Additional Goals: 2-Verbalize Understanding, 3-ImproveStrength/Enrrique 1=Demonstrate adherence to instructed precautions during ADL tasks. 2=Patient will verbalize/demonstrate understanding of assistive devices/ modifications for ADL. 3=Patient will improve strength/tolerance for activity to enable patient to perform ADL's. OT Education/Plan Problem List/Assessment Pt would benefit from skilled OT to increase her independence in basic self care to allow her to return home safely Discharge Recommendations Plan/Recommendations: Continue POC Treatment Plan/Plan of Care Patient would benefit from OT for education, treatment and training to promote independence in ADL's, mobility, safety and/or upper extremity function for ADL' s. Plan of Care: ADL Retraining, Caregiver Training, Functional Mobility, Orthotic Fitting/Training, UE Funct Exercise/Act, UE Neuromus Re-Ed/Coord Visits Per Week: 10-11 Minutes/Day (M-F): 75-90 Minutes/Day (Sat/[place]): prn Agreement: Yes Rehab Potential: Fair Time/GCodes Start Time: 09:00 Stop Time: 10:00 Total Time Billed (hr/min): 60 Billed Treatment Time visit, ADL 45 min, EX 15 min CONCEPCIÓN BAKER OT Feb 04, 2016 11:25
[2016-02-04] MEDS ORDERED: DEXA4TAB JT (12:05)
[2016-02-04] MEDS ORDERED: ACET200V4 INH (12:05)
[2016-02-04] MEDS ORDERED: GUAI100L13 JT (12:05)
[2016-02-04] MEDS ORDERED: DIPH25TA27 PO (12:05)
[2016-02-04] MEDS ORDERED: ONDA4SOL2 JT (12:05)
[2016-02-04] MEDS ORDERED: ALPR0.254 GT (12:05)
[2016-02-04] MEDS ORDERED: DIPH1TAB25 JT (12:05)
[2016-02-04] MEDS ORDERED: METO5SOL18 PO (12:05)
[2016-02-04] MEDS ORDERED: Oxycodone Hcl JT (12:05)
--- NOTE | 2016-02-04 12:08 | Discharge Inst-Complex ---
PDI Med Rec & Follow Up Appt. New Medications: Ondansetron HCl (Zofran) 4 Mg/5 Ml Solution 4 MG JT Q6H #600 Ref 6 ML Diphenhydramine HCl (Banophen) 25 Mg Tablet 25 MG PO Q6H PRN ITCHING AND RASH #120 Ref 2 TAB Metoclopramide HCl (Metoclopramide HCl) 10 Mg/10 Ml Solution 5 MG PO ACHS #600 ML ([Oxycodone Hcl]) 5 MG TAB 5 MG JT Q4H PRN PAIN #120 TAB Continued Medications: Acetaminophen (Acetaminophen) 325 Mg/10.15 Ml Soln 500 MG JT Q4H PRN MILD PAIN #60 EA Acetylcysteine (Acetylcysteine) 200 Mg/1 Ml Vial 0 ML INH RTQ6HR #60 Ref 6 VIAL (This prescription has been renewed) Alprazolam (Alprazolam) 0.25 Mg Tablet 0.25 MG GT BID PRN ANXIETY #60 TAB (This prescription has been renewed) Citalopram Hydrobromide (Citalopram HBr) 20 Mg Tablet 20 MG JT DAILY #30 TAB Dexamethasone (Dexamethasone) 4 Mg Tablet 2 MG JT BID #60 Ref 1 TAB (This prescription has been renewed) Diphenoxylate HCl/Atropine (Diphenoxylate-Atrop 2.5-0.025) 1 Each Tablet 1 EA JT BID #60 TAB (This prescription has been renewed) Enoxaparin Sodium (Enoxaparin Sodium) 40 Mg/0.4 Ml Syringe 40 MG SC DAILY@16 #30 SYRINGE Famotidine (Famotidine) 20 Mg Tablet 20 MG JT BID #60 TAB Guaifenesin (Guaifenesin) 100 Mg/5 Ml Liquid 200 MG JT QID #600 ML (This prescription has been renewed) Ipratropium/Albuterol Sulfate (Iprat-Albut 0.5-3(2.5) mg/3 ml) 3 Ml Ampul.neb 3 ML INH RTQ6HR PRN SHORTNESS OF BREATH #1 INHALER Ipratropium/Albuterol Sulfate (Iprat-Albut 0.5-3(2.5) mg/3 ml) 3 Ml Ampul.neb 3 ML INH RTBID #1 INHALER L. Acidophilus/Bulgaricus (Floranex Tablet) 1 Each Tablet 1 TAB.CHEW JT QID #100 TAB Magnesium Oxide (Magnesium Oxide) 400 Mg Tablet 400 MG JT BIDPC #60 TAB Discontinued Medications: Metoclopramide HCl (Metoclopramide HCl) 10 Mg/10 Ml Solution 10 MG JT ACHS #100 EA ([Oxycodone Hcl]) 5 MG TAB 5 MG JT Q4H PRN PAIN #60 TAB Prescription: Transmitted to Pharmacy ([facility], rest of rx in chart - signed rx 's) Activity, Diet and PDI Resume Normal Activity: Yes Discharge Diet: Tube Feeding Driving Instructions: No Driving/Refer to Return to The Hospital For: any concern for lifethreatening illness, injury or worsening symptoms, uncontrolled dizziness, uncontrolled diarrhea, worsening cough/secretions, or uncontrolled fever Symptoms to Reoprt to : Fever Over 101 Degrees F, Diarrhea(Persistant) For Problems or Questions: Contact Your Physician, Go to Emergency Room Infection Signs and Symptoms: Skin Itchy or Has a Rash, Temperature Above 101 F BERTA TINOCO MD Feb 04, 2016 12:08
--- NOTE | 2016-02-04 12:11 | Progress Note (SOAP) ---
Subjective Subjective/Events-last exam PT REPORTS THAT SHE IS READY TO GO HOME. SHE THINKS THAT SHE IS TOLERATING THE BOLUS FEEDING FAIRLY WELL. PER STAFF SHE HAS SOME ABDOMINAL CRAMPING, BUT NOT BAD PREVIOUSLY Review of Systems General: No Fatigue, No Malaise HEENT: No Head Aches Pulmonary: No Dyspnea Gastrointestinal: : NauseaNo: Abdominal Pain Neurological: : WeaknessNo: Confusion Objective Exam Vital Signs Date Time Temp Pulse Resp B/P Pulse Ox O2 Delivery O2 Flow Rate FiO2 02/04/16 08:19 96 Room Air 02/04/16 08:00 Room Air 02/04/16 07:10 99.2 96 20 107/69 90 02/04/16 02:42 93 Room Air 02/03/16 20:09 94 Room Air 02/03/16 20:00 Room Air 02/03/16 18:15 97.7 105 16 107/68 95 02/03/16 15:30 Room Air I & O 02/04/16 07:00 Intake Total 2206 ml Balance 2206 ml Capillary Refill : General Appearance: No Apparent Distress WD/WN Neck: Supple Respiratory: Chest Non Tender Lungs Clear Normal Breath Sounds Cardiovascular: Regular Rate, Rhythm Gastrointestinal: normal bowel sounds non tender soft Extremity: Normal Capillary Refill No Pedal Edema Neurologic/Psychiatric: Alert Oriented x3 No Motor/Sensory Deficits Normal Mood/Affect Skin: Warm/Dry Lymphatic: No Adenopathy Results Lab Microbiology 01/25/16 Blood Culture - Final, Complete No growth 01/27/16 C. difficile GDH Antigen & Toxins - Final, Complete 01/25/16 Gram Stain - Final, Complete 01/25/16 Sputum Culture - Final, Complete Pseudomonas Aeruginosa 01/26/16 Urine Culture - Final, Complete Enterococcus Faecium Pseudomonas Aeruginosa Assessment/Plan Assessment/Plan Assess & Plan/Chief Complaint Pseudomonal pneumonia Aspiration pneumonia Metastatic breast cancer Post-operative generalized weakness Feeding tube status Blocked J-tube Underweight Pseudomonal pneumonia - Aspiration pneumonia - continue with head of bed elevated at 30 degrees. 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 Bardales. Weakness - continue with pt/ot/speech/rec therapy. Feeding tube -continue with current feedings. Diagnosis/Problems: Clinical Quality Measures DVT/VTE Risk/Contraindication: Risk Factor Score Per Nursin RFS Level Per Nursing on Admit: 4+=Very High BERTA TINOCO MD Feb 04, 2016 12:11
--- NOTE | 2016-02-04 14:14 | Therapy Group Daily Note ---
Therapy Daily Group Note Patient Education Topic Other List Below (Bret and stefan for memory and critical thinking) Other/Notes Pt actively participated in OT/PT group. Group consisted of socialization, memory, critical thinking. Pt was able to contribute to discussions and activities appropriately. Patient was able to actively participate with all group activities on this date. Pt was transported to and from group via w/c. After group, pt sitting in w/c beside bed. Call light/phone in reach. All needs met in room. Start Time: 13:00 Stop Time: 14:00 Total Billed Treatment Time: 60 Total Billed Treatment 1 visit GRP 60 min TONG STROUD PT Feb 04, 2016 14:14
[2016-02-04] MEDS: ENOXAPARIN 40 MG/0.4 ML (LOVENOX) SYR SC SCH (15:25)
[2016-02-04 17:52] VITALS: BP 115/73
[2016-02-05] MEDS: methylPREDNISolone 125 MG (Solu-MEDROL) VIAL IVP SCH ×4 (00:53→18:59)
[2016-02-05] MEDS: diphenhydrAMINE 50 MG/ML INJ (BENADRYL) IVP SCH ×2 (00:53→05:40)
[2016-02-05] MEDS: ONDANSETRON 4 MG/2 ML (SDV) Z0FRAN IVP SCH ×4 (00:53→19:00)
[2016-02-05] MEDS: RT-ALBUTEROL/IPRATROPIUM 3 ML (DUONEB) VIAL INH SCH ×4 (03:46→20:30)
[2016-02-05] MEDS: METOCLOPRAMIDE 10MG/10ML ORAL SOL(REGLAN) UDC PO SCH ×4 (05:40→20:59)
[2016-02-05 05:42] VITALS: BP 104/61
[2016-02-05] MEDS: aCETylcysteine 20% (MUCOMYST) 30ML SOLN VIAL INH SCH ×2 (08:00→20:30)
[2016-02-05] MEDS: LINEZOLID IVPB 300 ML IV SCH ×2 (08:59→21:04)
[2016-02-05] MEDS: LACTOBACILLUS Acidoph/Bulgar (LACTINEX/FLORANEX) TAB JT SCH ×4 (09:09→20:59)
[2016-02-05] MEDS: DIPHENOXYLATE/ATROPINE 2.5MG/0.025MG (LOMOTIL) TAB JT SCH ×2 (09:09→20:59)
[2016-02-05] MEDS: FAMOTIDINE 20MG/2ML IV (PEPCID) IVP SCH ×2 (09:09→20:59)
[2016-02-05] MEDS: guaiFENesin SYRUP 100 MG/5 ML 10 ML (ROBITUSSIN SF) JT SCH ×4 (09:09→20:59)
[2016-02-05] MEDS: MAGNESIUM OXIDE (MAG-OX)400 MG TAB JT SCH ×2 (09:09→18:00)
[2016-02-05] MEDS: BENEFIBER (FROM DIETARY) DOCUMENTATION PURPOSE ONLY PO SCH ×3 (09:10→21:04)
--- NOTE | 2016-02-05 11:29 | Physical Therapy Progress Note ---
Therapy Progress Note Pt getting ready to leave with on a day pass. Visit only. No treatment rendered. HUMBERTO AQUINO PT Feb 05, 2016 11:29
[2016-02-05 18:34] VITALS: BP 132/82
[2016-02-05] MEDS: ENOXAPARIN 40 MG/0.4 ML (LOVENOX) SYR SC SCH (18:59)
[2016-02-06] MEDS: ONDANSETRON 4 MG/2 ML (SDV) Z0FRAN IVP SCH ×4 (00:23→18:14)
[2016-02-06] MEDS: methylPREDNISolone 125 MG (Solu-MEDROL) VIAL IVP SCH ×2 (00:23→06:44)
[2016-02-06] MEDS: RT-ALBUTEROL/IPRATROPIUM 3 ML (DUONEB) VIAL INH SCH ×4 (02:33→22:55)
[2016-02-06] MEDS: METOCLOPRAMIDE 10MG/10ML ORAL SOL(REGLAN) UDC PO SCH ×5 (06:43→21:45)
[2016-02-06 06:46] VITALS: BP 123/77
[2016-02-06] MEDS: DIPHENOXYLATE/ATROPINE 2.5MG/0.025MG (LOMOTIL) TAB JT SCH ×2 (08:46→21:45)
[2016-02-06] MEDS: LINEZOLID IVPB 300 ML IV SCH ×2 (08:46→21:45)
[2016-02-06] MEDS: MAGNESIUM OXIDE (MAG-OX)400 MG TAB JT SCH ×2 (08:46→18:14)
[2016-02-06] MEDS: guaiFENesin SYRUP 100 MG/5 ML 10 ML (ROBITUSSIN SF) JT SCH ×5 (08:46→21:45)
[2016-02-06] MEDS: LACTOBACILLUS Acidoph/Bulgar (LACTINEX/FLORANEX) TAB JT SCH ×5 (08:46→21:45)
[2016-02-06] MEDS: BENEFIBER (FROM DIETARY) DOCUMENTATION PURPOSE ONLY PO SCH ×3 (08:47→21:56)
[2016-02-06] MEDS: aCETylcysteine 20% (MUCOMYST) 30ML SOLN VIAL INH SCH ×2 (10:15→22:55)
[2016-02-06 18:00] VITALS: BP 105/66
[2016-02-06] MEDS: ENOXAPARIN 40 MG/0.4 ML (LOVENOX) SYR SC SCH (18:13)
[2016-02-06] MEDS: FAMOTIDINE 20 MG (PEPCID) TABLET JT SCH (21:45)
[2016-02-07] MEDS: ONDANSETRON 4 MG/2 ML (SDV) Z0FRAN IVP SCH ×5 (01:04→23:45)
[2016-02-07] MEDS: RT-ALBUTEROL/IPRATROPIUM 3 ML (DUONEB) VIAL INH SCH ×4 (05:03→21:50)
[2016-02-07 06:00] VITALS: BP 104/62
[2016-02-07] MEDS: METOCLOPRAMIDE 10MG/10ML ORAL SOL(REGLAN) UDC PO SCH ×4 (06:11→21:34)
[2016-02-07] MEDS: aCETylcysteine 20% (MUCOMYST) 30ML SOLN VIAL INH SCH ×2 (08:00→21:50)
[2016-02-07] MEDS: LINEZOLID IVPB 300 ML IV SCH (08:45)
[2016-02-07] MEDS: DIPHENOXYLATE/ATROPINE 2.5MG/0.025MG (LOMOTIL) TAB JT SCH ×2 (08:45→21:34)
[2016-02-07] MEDS: LACTOBACILLUS Acidoph/Bulgar (LACTINEX/FLORANEX) TAB JT SCH ×4 (08:45→21:34)
[2016-02-07] MEDS: FAMOTIDINE 20 MG (PEPCID) TABLET JT SCH ×2 (08:45→21:34)
[2016-02-07] MEDS: MAGNESIUM OXIDE (MAG-OX)400 MG TAB JT SCH ×2 (08:45→17:01)
[2016-02-07] MEDS: guaiFENesin SYRUP 100 MG/5 ML 10 ML (ROBITUSSIN SF) JT SCH ×4 (08:45→21:34)
--- NOTE | 2016-02-07 10:13 | Speech Therapy Daily Note ---
Speech Daily Progress Note Subjective The patient was laying in bed upon entrance. The patient was agreeable to ST on this date. Objective Dysphagia Exercises: The patient demonstrated fair to good accuracy with dysphagia exercises on this date. Patient continues to require mild to moderate motivation for completion. Patient completed ten repetitions of base of tongue, pharyngeal contraction, and laryngeal elevation exercises. The patient denied questions or concerns regarding the dysphagia exercises and verbalized her ability to complete exercises independently upon discharge. Assessment Assessment Current Status: Fair Progress Treatment Plan Continue Plan of Care Communication Comprehension: 5 Expression: 5 Social Cognition Social Interaction: 5 Problem Solvin Memory: 5 Speech Short Term Goals Short Term Goals Short Term Goals 1. The patient will independently demonstrate laryngeal, pharyngeal, and base of tongue exercises. PROGRESSING Time Frame-STG: Two Weeks Speech Skilled Nursing Goals Mortgage Loan Processing Clerk Goals 1. The patient will tolerate PO trials of the least restrictive consistency without signs/symptoms of aspiration or laryngeal penetration. INITIATED 2015 Time Frame: Eight Weeks Comprehension: 6 Expression: 5 Social Interaction: 5 Problem Solvin Memory: 5 Speech-Plan Treatment Plan Speech Therapy Treatment Plan: Continue Plan of Care Treatment Duration: Feb 16, 2016 # of days/week 5 Visits Per Week: 4 to 5 Minutes/Day (M-F): 30 Rehab Potential: Fair Safety Risks/Education Teaching Recipient: Patient Teaching Methods: Demonstration, Handout, Discussion Response to Teaching: Verbalize Understanding, Return Demonstration, Reinforcement Needed Education Topics Provided: Dysphagia Exercises Time Speech Therapy Time In: 08:30 Speech Therapy Time Out: 09:00 Total Billed Time: 30 Billed Treatment Time 1, ASAEL GILBERT VORA Feb 07, 2016 10:12
[2016-02-07] MEDS: BENEFIBER (FROM DIETARY) DOCUMENTATION PURPOSE ONLY PO SCH ×3 (10:16→21:35)
--- NOTE | 2016-02-07 11:58 | Occupational Ther Daily Note ---
OT Current Status-Daily Note Subjective Pt seen in room, up in bed, agreeable to OT. No pain mentioned. Pt reported pass went well and she is looking forward to discharge tomorrow to her mother-in -law's house (she lives in [place] and is closer to hospital) Appearance Alert, cooperative, needs encouragement Mental Status/Objective Patient Orientation: Person, Place, Time, Situation Functional [place] Measure 0=Not Assessed/NA 4=Minimal Assistance 1=Total Assistance 5=Supervision or Setup 2=Maximal Assistance 6=Modified [place] 3=Moderate Assistance 7=Complete [place] ADL-Treatment Functional [place] Measure 0=Not Assessed/NA 4=Minimal Assistance 1=Total Assistance 5=Supervision or Setup 2=Maximal Assistance 6=Modified [place] 3=Moderate Assistance 7=Complete IndependenceIRFPAI Quality Coding Scale 6 Independent with activity with or without an assistive device 5 Patient requires set up or clean up by helper. Patient completes activity by themselves 4 Supervision or touching assist (CGA). [place] provide cues , steadying assist 3 The helper provides less than half the effort to complete the activity 2 The helper provides more than half the effort to complete the activity 1 Dependent. The helper does all the effort to complete an activity 7 Patient refused to complete or attempt activity 9 The patient did not perform the activity before the current illness or injury 88 Not attempted due to Medical conditions or safety concerns Eating (FIM): 1 (NPO, tube feeding shwich she cannot manage herself) Eating (QC): 88 (NPO) Grooming (FIM): 5 (Brushed teeth and combed hair at sink, with help to position w/c. She was able to open toothpaste, squeeze some out, rinse mouth) Oral Hygiene (QC): 5 (setup) Toileting Hygiene (QC): 2 (Pt is able to help get pants up and down but can't do it all (less than 50%). needs min assist to stand when she works with clothing. She can wipe in front but not in back. ) Bathing (FIM): 4 (Pt was able to wash and dry all parts except bottom. She stood min assist to get bottom washed. Shower chair, grab bars, hand held shower. Help to wash hair) Upper Body (FIM): 3 (Needs mod assist to get shirt pulled up and over head. She can take it off her arms. Same amount of assistance to put shirt on. pt does more than 50%) Upper Body Dressing (QC): 3 (Needs mod assist to get shirt pulled up and over head. She can take it off her arms. Same amount of assistance to put shirt on. pt does more than 50%) Lower Body Dressing (FIM): 3 (Pt was able to get underwear over her feet and pulled up some on legs. When she stood, she either required min assist for balance while she helped pull pants up or she was able to balance with FWW while OT pulled pants up over hips. She is only to able to help a little with getting slipper socks on or pulling them up ) Lower Body Dressing (QC): 3 On/Off Footwear (QC): 2 Toileting (FIM): 2 (Pt is able to help get pants up and down but can't do it all (less than 50%). needs min assist to stand when she works with clothing. She can wipe in front but not in back. BSC over toilet, grab bars) Transfers (B, C, W/C) (FIM): 4 (CGA, FWW) Toilet/Commode Transfer (FIM): 4 (CGA, BSC over toilet, grab bars (from w/c)) Toilet Transfer (QC): 4 (CGA) Shower Transfer(FIM): 4 (Trnsfer tub bench, grab bars, hand held shower.) Shower/Bathe Self (QC): 3 (Pt was able to wash and dry all parts except bottom. She stood min assist to get bottom washed. Shower chair, grab bars, hand held shower) Other Treatment Pt left up in w/c with all needs met after OT. Nursing in room. Anticipating [id number] here today but she wasn't present for ADLs OT Short Term Goals Short Term Goals Lower Body Dressing(FIM): 4 (met sometimes) Toileting(FIM): 4 (not met) Transfers (B,C,W/C) (FIM): 5 (not met) Toilet/Commode Transfer(FIM): 4 (met) Shower Transfer(FIM): 5 (not met) 1=Demonstrate adherence to instructed precautions during ADL tasks. 2=Patient will verbalize/demonstrate understanding of assistive devices/ modifications for ADL. 3=Patient will improve strength/tolerance for activity to enable patient to perform ADL's. OT Can Dryer Goals Can Dryer Goals Eating (FIM): 1 Grooming(FIM): 6 Bathing(FIM): 6 Upper Body Dressing(FIM): 6 Lower Body Dressing(FIM): 5 Toileting(FIM): 5 Transfers (B,C,W/C) (FIM): 5 Toilet/Commode Transfer(FIM): 5 Shower Transfer(FIM): 5 Comprehension(FIM): 6 Expression (FIM): 5 Social Interaction(FIM): 5 Problem Solving(FIM): 5 Memory(FIM): 5 Continue with same LTGs Additional Goals: 2-Verbalize Understanding, 3-ImproveStrength/Enrrique 1=Demonstrate adherence to instructed precautions during ADL tasks. 2=Patient will verbalize/demonstrate understanding of assistive devices/ modifications for ADL. 3=Patient will improve strength/tolerance for activity to enable patient to perform ADL's. OT Education/Plan Problem List/Assessment Pt would benefit from skilled OT to increase her independence in basic self care to allow her to return home safely Discharge Recommendations Plan/Recommendations: Continue POC Treatment Plan/Plan of Care Patient would benefit from OT for education, treatment and training to promote independence in ADL's, mobility, safety and/or upper extremity function for ADL' s. Plan of Care: ADL Retraining, Caregiver Training, Functional Mobility, Orthotic Fitting/Training, UE Funct Exercise/Act, UE Neuromus Re-Ed/Coord Visits Per Week: 10-11 Minutes/Day (M-F): 75-90 Minutes/Day (Sat/[place]): prn Agreement: Yes Rehab Potential: Fair Time/GCodes Start Time: 09:15 Stop Time: 10:05 Total Time Billed (hr/min): 50 Billed Treatment Time visit, 50 minutes ADL KELLY ATKINS OT Feb 07, 2016 11:58
--- NOTE | 2016-02-07 15:00 | Physical Therapy Daily Note ---
PT Daily Note-Current Subjective Pt sitting in W/C upon arrival. Pt reports having a good time the last two days on pass for [employer]. Pt also reports feeling tired today. Pt agrees to PT. Pain Numeric Pain Scale: 0-No Pain Location: No Pain Reported Mental Status Patient Orientation: Person, Place, Time, Situation Attachments: Other-See Comments Trach. Transfers Functional [place] Measure 0=Not Assessed/NA 4=Minimal Assistance 1=Total Assistance 5=Supervision or Setup 2=Maximal Assistance 6=Modified [place] 3=Moderate Assistance 7=Complete IndependenceIRFPAI Quality Coding Scale 6 Independent with activity with or without an assistive device 5 Patient requires set up or clean up by helper. Patient completes activity by themselves 4 Supervision or touching assist (CGA). [place] provide cues , steadying assist 3 The helper provides less than half the effort to complete the activity 2 The helper provides more than half the effort to complete the activity 1 Dependent. The helper does all the effort to complete an activity 7 Patient refused to complete or attempt activity 9 The patient did not perform the activity before the current illness or injury 88 Not attempted due to Medical conditions or safety concerns Scootin Rollin Roll Left to Right (QC): 4 Supine to/from Sit: 4 Sit to/from Stand: 4 Sit to Lying (QC): 5 Sit to Stand (QC): 4 Chair/Mnu-to-Wgbot Xfer(QC): 4 Bed to/from Chair: 4 Car Transfer (QC): 88 Car not present to complete car transfer. Weight Bearing Weight Bearing Restriction: Full Weight Bearing Location Restriction: LE Bilateral Gait Training Does the Patient Walk?: Yes Distance (FIM): 1=up to 49 ft Distance: 40 Walk 10 feet (QC): 4 Walk 50 ft with 2 Turns(QC): 88 Walk 150 ft (QC): 88 Walking 10ft on uneven surface: 4 Gait Level of Assist: 4 Gait Persons Needed: 1 Gait Assistive Device: FWW Pt gets nervous when ambulating. Pt also reports feeling tired since being at home and probably over did it. Pt has walked farther but very unsteady today due to fatigue. Pt leans heavily to R side when walking even with VC. Wheelchair Training Does the Pt Use a Wheelchair?: Yes Wheelchair (FIM): 5 Wheelchair Distance: 9=810-37 ft Distance: 125' Wheelchair Level of Assist: 5 Wheel 50 ft with 2 turns (QC): 5 Wheel 150 ft (QC): 88 Type of Wheelchair: Manual Pt fatigues easy and was until able to propel any further. Stair Training 1 Step (curb) (QC): 9 4 Steps (QC): 9 12 Steps (QC): 9 Pt did not attempt due to safety concerns. Pt will not need to use stairs at home. Balance Picking up an Object (QC): 9 Exercises Seated Therapy Exercises: Ankle pumps, Sit to stand, Long arc quads, Hip flexion, Kicking activity Seated Reps: 10 Treatments Pt propels W/C to hallway. Pt transfers sit to stand using FWW at [facility]. Pt attempts walking using FWW with W/C to follow. Pt leans heavily to R side and reports feeling unsteady and weak. Pt sits back then attempts 2 more times for total of 40', each time pt walks just short distance before fatiguing and needing to sit to rest. Pt reports probably over doing it when she was on pass for [employer] the last couple of days. Pt propels to [facility] for seated EX. Pt reports needing to return to supine in bed to rest. Pt propels to room and SPT to EOB from W/C before laying supine in bed to rest with all needs met at end of tx. Assessment Current Status: Fair Progress Pt was very fatigued from her pass for [employer] the last two days. Pt fatigues very easy. PT Short Term Goals Short Term Goals Transfers (B,C,W/C) (FIM): 5 (not met) Gait (FIM): 1 Distance (FIM): 1=up to 49 ft Gait Distance Comment: 25' Gait Level of Assist: 3 Gait Assistive Device: FWW Wheelchair (FIM): 1 (achieved on 01/13/16) Wheelchair distance (FIM): 1=up to 49 ft Wheelchair Distance: 150 ft x 2 Wheelchair Level of Assist: 4 PT Capsule Filling Machine Operator Goals [facility] Goals Transfers (B,C,W/C) (FIM): 5 Rollin Gait (FIM): 1 Gait distance (FIM): 1=up to 49 ft Distance: 45' Gait Level of Assist: 4 Gait Assistive Device: FWW Stairs (FIM): 1 # of Steps: 4 Stairs Level Of Assist: 4 PT Plan Problem List Problem List: Activity Tolerance, Functional Strength, Safety, Balance, Gait, Transfer Treatment/Plan Treatment Plan: Continue Plan of Care Treatment Plan: Bed Mobility, Education, Functional Activity Enrrique, Functional Strength, Group Therapy, Gait, Safety, Therapeutic Exercise, Transfers Visits Per Week: 10-11 Minutes/Day (M-F): 60-90 Minutes/Day (Sat/[place]): PRN Safety Risks/Education Patient Education: Gait Training, Transfer Techniques, Correct Positioning, Safety Issues Teaching Recipient: Patient Teaching Methods: Discussion Response to Teaching: Verbalize Understanding Time/GCodes Time In: 1015 Time Out: 1115 Total Billed Treatment Time: 60 Total Billed Treatment visit, GT (15m) & FA X3 (45m) LUISA DASILVA BEATER LEAD Feb 07, 2016 15:00
--- NOTE | 2016-02-07 15:15 | Occupational Ther Daily Note ---
OT Current Status-Daily Note Subjective Pt seen in room, up in bed, agreeable to OT. present. No pain mentioned except in arms and legs but not specific locations or descriptions Mental Status/Objective Functional [place] Measure 0=Not Assessed/NA 4=Minimal Assistance 1=Total Assistance 5=Supervision or Setup 2=Maximal Assistance 6=Modified [place] 3=Moderate Assistance 7=Complete [place] ADL-Treatment Functional [place] Measure 0=Not Assessed/NA 4=Minimal Assistance 1=Total Assistance 5=Supervision or Setup 2=Maximal Assistance 6=Modified [place] 3=Moderate Assistance 7=Complete IndependenceIRFPAI Quality Coding Scale 6 Independent with activity with or without an assistive device 5 Patient requires set up or clean up by helper. Patient completes activity by themselves 4 Supervision or touching assist (CGA). [place] provide cues , steadying assist 3 The helper provides less than half the effort to complete the activity 2 The helper provides more than half the effort to complete the activity 1 Dependent. The helper does all the effort to complete an activity 7 Patient refused to complete or attempt activity 9 The patient did not perform the activity before the current illness or injury 88 Not attempted due to Medical conditions or safety concerns Other Treatment Education with her on toilet transfers with BSC over toilet, with grab bars. Pt transferred from bed to w/c min assist, FWW, with reminders for hand placement and to go slow when turning (she repeated quietly to herself, "Slow down, slow down.") She propelled w/c into bathroom, getting over the threshold by herself. She walked min assist, FWW to toilet, used grab bar and FWW to stabilize herself, helped pull pants down, sat on toilet with reminder to reach arms back. She had a smear of BM on Depends so pants were changed. She was able to wipe in front but OT wiped in back and applied barrier cream while she stood almost SBA, FWW. She helped pull pants up and also balanced with FWW while OT completed task. reported he had toileted her by himself at home and was comfortabl;e with it but appreciated know options like using toilet in bathroom. Walked back to w/c min assist, FWW. verbalized understanding. Discussed bathroom at his mother's house. It has grab bars in plate by toilet and in tub area. Home health OT can work with her and family on toilet and tub transfers, as well as continue with UE strengthening. Shared information from accounting administrative assistant and pinch testing last week with pt and . She has functionally improved the use of her R hand and UE but still needs encouragement to use it. 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 Pt left up in w/c with , all needs met. OT Short Term Goals Short Term Goals Lower Body Dressing(FIM): 4 (met sometimes) Toileting(FIM): 4 (not met) Transfers (B,C,W/C) (FIM): 5 (not met) Toilet/Commode Transfer(FIM): 4 (met) Shower Transfer(FIM): 5 (not met) 1=Demonstrate adherence to instructed precautions during ADL tasks. 2=Patient will verbalize/demonstrate understanding of assistive devices/ modifications for ADL. 3=Patient will improve strength/tolerance for activity to enable patient to perform ADL's. OT Dispensing Audiologist Goals Dispensing Audiologist Goals Eating (FIM): 1 (Met 02/07/16) Grooming(FIM): 6 (Not met) Bathing(FIM): 6 (not met) Upper Body Dressing(FIM): 6 (not met) Lower Body Dressing(FIM): 5 (not met) Toileting(FIM): 5 (not met) Transfers (B,C,W/C) (FIM): 5 (not met) Toilet/Commode Transfer(FIM): 5 (not met) Shower Transfer(FIM): 5 (not met) Comprehension(FIM): 6 Expression (FIM): 5 Social Interaction(FIM): 5 Problem Solving(FIM): 5 Memory(FIM): 5 Continue with same LTGs Additional Goals: 2-Verbalize Understanding, 3-ImproveStrength/Enrrique 1=Demonstrate adherence to instructed precautions during ADL tasks. 2=Patient will verbalize/demonstrate understanding of assistive devices/ modifications for ADL. 3=Patient will improve strength/tolerance for activity to enable patient to perform ADL's. OT Education/Plan Problem List/Assessment Pt would benefit from skilled OT to increase her independence in basic self care to allow her to return home safely Discharge Recommendations Plan/Recommendations: Continue POC (Anticipate DC to home tomorrow with family support) Treatment Plan/Plan of Care Patient would benefit from OT for education, treatment and training to promote independence in ADL's, mobility, safety and/or upper extremity function for ADL' s. Plan of Care: ADL Retraining, Caregiver Training, Functional Mobility, Orthotic Fitting/Training, UE Funct Exercise/Act, UE Neuromus Re-Ed/Coord Visits Per Week: 10-11 Minutes/Day (M-F): 75-90 Minutes/Day (Sat/M[place]ox): prn Agreement: Yes Rehab Potential: Fair Time/GCodes Start Time: 13:30 Stop Time: 14:00 Total Time Billed (hr/min): 30 Billed Treatment Time visit, 30 minutes ADL KELLY ATKINS OT Feb 07, 2016 15:15
--- NOTE | 2016-02-07 15:42 | Physical Therapy Daily Note ---
PT Daily Note-Current Subjective Pt sitting in W/C upon arrival, just finished with OT. Pt agrees to PT. Pain Numeric Pain Scale: 0-No Pain Location: No Pain Reported Mental Status Patient Orientation: Person, Place, Time, Situation Attachments: Other-See Comments (Trach.) Transfers Functional [place] Measure 0=Not Assessed/NA 4=Minimal Assistance 1=Total Assistance 5=Supervision or Setup 2=Maximal Assistance 6=Modified [place] 3=Moderate Assistance 7=Complete IndependenceIRFPAI Quality Coding Scale 6 Independent with activity with or without an assistive device 5 Patient requires set up or clean up by helper. Patient completes activity by themselves 4 Supervision or touching assist (CGA). [place] provide cues , steadying assist 3 The helper provides less than half the effort to complete the activity 2 The helper provides more than half the effort to complete the activity 1 Dependent. The helper does all the effort to complete an activity 7 Patient refused to complete or attempt activity 9 The patient did not perform the activity before the current illness or injury 88 Not attempted due to Medical conditions or safety concerns Supine to/from Sit: 5 Sit to/from Stand: 4 Sit to Lying (QC): 5 Sit to Stand (QC): 4 Weight Bearing Weight Bearing Restriction: Full Weight Bearing Location Restriction: LE Bilateral Exercises Seated Therapy Exercises: Ankle pumps, Long arc quads, Hip flexion, Kicking activity Seated Reps: 15 Treatments Pt reports feeling good about discharging tomorrow. Pt gave pt education to both pt & sp and ask for questions/concerns might have noticed on home pass pt had been on. Sp reports felt car transfers as well as assisting pt with getting in and out of house and toilet went well. Pt reports feeling tired since had been up for a while. Pt wants to return to bed. Pt completes SPT to EOB with PT help. Pt lays supine in bed at SBA to rest with all needs met at end of tx. Assessment Current Status: Fair Progress Pt fatigues easy and is just ready to discharge tomorrow. Pt was open to pt education although it sounds as though the home pass went well. PT Short Term Goals Short Term Goals Transfers (B,C,W/C) (FIM): 5 (not met) Gait (FIM): 1 Distance (FIM): 1=up to 49 ft Gait Distance Comment: 25' Gait Level of Assist: 3 Gait Assistive Device: FWW Wheelchair (FIM): 1 (achieved on 01/13/16) Wheelchair distance (FIM): 1=up to 49 ft Wheelchair Distance: 125' Wheelchair Level of Assist: 4 PT Catastrophe Claims Supervisor Goals Catastrophe Claims Supervisor Goals Transfers (B,C,W/C) (FIM): 5 Rollin Gait (FIM): 1 Gait distance (FIM): 1=up to 49 ft Distance: 45' Gait Level of Assist: 4 Gait Assistive Device: FWW Stairs (FIM): 1 # of Steps: 4 Stairs Level Of Assist: 4 PT Plan Problem List Problem List: Activity Tolerance, Functional Strength, Safety, Balance, Gait, Transfer Treatment/Plan Treatment Plan: Continue Plan of Care Treatment Plan: Bed Mobility, Education, Functional Activity Nerrique, Functional Strength, Group Therapy, Gait, Safety, Therapeutic Exercise, Transfers Visits Per Week: 10-11 Minutes/Day (M-F): 60-90 Minutes/Day (Sat/[place]): PRN Safety Risks/Education Patient Education: Gait Training, Transfer Techniques, Correct Positioning, Safety Issues Teaching Recipient: Patient, Significant Other Teaching Methods: Discussion Response to Teaching: Verbalize Understanding Time/GCodes Time In: 1400 Time Out: 1430 Total Billed Treatment Time: 30 Total Billed Treatment visit, FA X2 (30m) LUISA DASILVA PTA Feb 07, 2016 15:41
[2016-02-07] MEDS: ENOXAPARIN 40 MG/0.4 ML (LOVENOX) SYR SC SCH (17:00)
[2016-02-07 18:22] VITALS: BP 96/56
[2016-02-07] MEDS: APAP 325 MG/10.15 ML LIQ (TYLENOL) UDC JT PRN (21:35)
[2016-02-08] MEDS: RT-ALBUTEROL/IPRATROPIUM 3 ML (DUONEB) VIAL INH SCH ×4 (03:07→20:18)
[2016-02-08 04:02] VITALS: BP 109/67
[2016-02-08] MEDS: ONDANSETRON 4 MG/2 ML (SDV) Z0FRAN IVP SCH ×4 (06:16→23:23)
[2016-02-08] MEDS: METOCLOPRAMIDE 10MG/10ML ORAL SOL(REGLAN) UDC PO SCH ×4 (06:16→21:03)
--- NOTE | 2016-02-08 08:59 | Therapy Team Discharge Summary ---
Therapy Discharge Summary Discharge Recommendations Date of Discharge February 08, 2016 Therapy D/C Recommendations: Home w/ Family Support, Occupational Therapy Home Care Occupational Therapy Pt was seen for skilled OT to increase her independence in basic self care to allow her to return to her home with family support after surgery for brain tumor, trach, PEG and long hospitalization. She was on ARU previously but transferred to swing bed for about 2 weeks for whole brain radiation. On readmission she was dependant for feeding (NPO, with tube feeding) and toileting (required 2 people), mod assist toilet transfer, min assist upper and lower body dressing (gowns and Depends) and transfers, SBA bathing and grooming. By discharge she was still dependant with eating, needed mod assist for dressing (for pullover shirts, slacks, socks and shoes), max assist toileting (only one person needed), min assist bathing (can stand to get bottom washed), transfer to toilet and shower bench and setup grooming. Although the scores may indicate that she needs more assistance with some ADLs, she is performing them at a higher functional level. Equipment used included FWW, BSC, transfer tub bench, grab bars, hand held shower. Family has been educated in assisting her with her ADLs and home health OT is recommended. See tx plan for goals met. DC OT. PT Intermediate Goals Pattern Checker Goals Transfers (B,C,W/C) (FIM): 5 Gait (FIM): 1 Gait distance (FIM): 1=up to 49 ft Distance: 45' Gait Level of Assist: 4 Gait Assistive Device: FWW Stairs (FIM): 1 # of Steps: 4 Stairs Level Of Assist: 4 OT Pattern Checker Goals Intermediate Goals Eating (FIM): 1 (Met 02/07/16) Grooming(FIM): 6 (Not met) Bathing(FIM): 6 (not met) Upper Body Dressing(FIM): 6 (not met) Lower Body Dressing(FIM): 5 (not met) Toileting(FIM): 5 (not met) Transfers (B,C,W/C) (FIM): 5 (not met) Toilet/Commode Transfer(FIM): 5 (not met) Shower Transfer(FIM): 5 (not met) Comprehension(FIM): 6 Expression (FIM): 5 Social Interaction(FIM): 5 Problem Solving(FIM): 5 Memory(FIM): 5 Continue with same LTGs Additional Goals: 2-Verbalize Understanding, 3-ImproveStrength/Enrrique 1=Demonstrate adherence to instructed precautions during ADL tasks. 2=Patient will verbalize/demonstrate understanding of assistive devices/ modifications for ADL. 3=Patient will improve strength/tolerance for activity to enable patient to perform ADL's. Speech Pattern Checker Goals Intermediate Goals 1. The patient will tolerate PO trials of the least restrictive consistency without signs/symptoms of aspiration or laryngeal penetration. INITIATED 2015 Time Frame: Eight Weeks Comprehension: 6 Expression: 5 Social Interaction: 5 Problem Solvin Memory: 5 KELLY ATKINS OT Feb 08, 2016 08:59
[2016-02-08] MEDS: LACTOBACILLUS Acidoph/Bulgar (LACTINEX/FLORANEX) TAB JT SCH ×4 (09:29→21:03)
[2016-02-08] MEDS: guaiFENesin SYRUP 100 MG/5 ML 10 ML (ROBITUSSIN SF) JT SCH ×4 (09:29→21:03)
[2016-02-08] MEDS: DIPHENOXYLATE/ATROPINE 2.5MG/0.025MG (LOMOTIL) TAB JT SCH ×2 (09:29→21:03)
[2016-02-08] MEDS: FAMOTIDINE 20 MG (PEPCID) TABLET JT SCH ×2 (09:30→21:03)
[2016-02-08] MEDS ORDERED: FUROSEMIDE 40 MG (LASIX) TAB PO NR (09:30)
[2016-02-08] MEDS: BENEFIBER (FROM DIETARY) DOCUMENTATION PURPOSE ONLY PO SCH ×3 (09:30→21:03)
[2016-02-08] MEDS: MAGNESIUM OXIDE (MAG-OX)400 MG TAB JT SCH ×2 (09:30→17:00)
[2016-02-08] MEDS: aCETylcysteine 20% (MUCOMYST) 30ML SOLN VIAL INH SCH ×2 (09:58→20:17)
--- NOTE | 2016-02-08 10:02 | Therapy Team Discharge Summary ---
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 Upon admission, the patient was NPO and receiving total nutrition, hydration, and medication via PEG tube. The patient participated in a video swallow at this facility which demonstrated aspiration of all consistencies (thin, nectar, honey , and puree). Skilled speech therapy focused on base of tongue, laryngeal, and pharyngeal strengthening exercises. The patient met speech pathology goals which included independence with dysphagia exercises. At discharge, the patient remains NPO. The patient would benefit from initial dysphagia evaluation from home health speech pathologist. The patient will be discharged from inpatient speech services at this time. PT Bank Note Designer Goals Alf Goals Transfers (B,C,W/C) (FIM): 5 Gait (FIM): 1 Gait distance (FIM): 1=up to 49 ft Distance: 45' Gait Level of Assist: 4 Gait Assistive Device: FWW Stairs (FIM): 1 # of Steps: 4 Stairs Level Of Assist: 4 OT Bank Note Designer Goals Alf Goals Eating (FIM): 1 (Met 02/07/16) Grooming(FIM): 6 (Not met) Bathing(FIM): 6 (not met) Upper Body Dressing(FIM): 6 (not met) Lower Body Dressing(FIM): 5 (not met) Toileting(FIM): 5 (not met) Transfers (B,C,W/C) (FIM): 5 (not met) Toilet/Commode Transfer(FIM): 5 (not met) Shower Transfer(FIM): 5 (not met) Comprehension(FIM): 6 Expression (FIM): 5 Social Interaction(FIM): 5 Problem Solving(FIM): 5 Memory(FIM): 5 Continue with same LTGs Additional Goals: 2-Verbalize Understanding, 3-ImproveStrength/Enrrique 1=Demonstrate adherence to instructed precautions during ADL tasks. 2=Patient will verbalize/demonstrate understanding of assistive devices/ modifications for ADL. 3=Patient will improve strength/tolerance for activity to enable patient to perform ADL's. Speech Alf Goals Alf Goals 1. The patient will tolerate PO trials of the least restrictive consistency without signs/symptoms of aspiration or laryngeal penetration. INITIATED 2015 Time Frame: Eight Weeks Comprehension: 6 (MET) Expression: 5 (MET) Social Interaction: 5 (MET) Problem Solvin (MET) Memory: 5 (MET) GILBERT VORA Feb 08, 2016 10:02
--- NOTE | 2016-02-08 11:17 | Occupational Ther Daily Note ---
OT Current Status-Daily Note Subjective Pt lying bed. Agreeable to OT. No pain mentioned Appearance Alert, cooperative Mental Status/Objective Functional [place] Measure 0=Not Assessed/NA 4=Minimal Assistance 1=Total Assistance 5=Supervision or Setup 2=Maximal Assistance 6=Modified [place] 3=Moderate Assistance 7=Complete [place] ADL-Treatment Pt transferred from bed to [facility] using FWW Min A. Pt propelled herself to the bathroom. Seated in w/ in front of sink pt brushed her teeth setup. Pt propelled herself to the gym. Using arm bike for strength 12 min 10 maloney, with three brief recovery breaks. Exercise bar used for shoulder, elbow endurance and strength, 2 sets 15 reps. Active ROM with no additional resistance for shoulder,elbow 2 sets 10 reps (AAROM R shoulder flexion). Pt took three recovery breaks during exercise. Pt propelled herself back to her room. Min A to transfer Pt to [facility], FW, assist to wipe perineal/back and manage clothing ( loose stool x 2). Min A to transfer pt to [facility], FWW. Pt left in / in care of PT. Functional [place] Measure 0=Not Assessed/NA 4=Minimal Assistance 1=Total Assistance 5=Supervision or Setup 2=Maximal Assistance 6=Modified [place] 3=Moderate Assistance 7=Complete IndependenceIRFPAI Quality Coding Scale 6 Independent with activity with or without an assistive device 5 Patient requires set up or clean up by helper. Patient completes activity by themselves 4 Supervision or touching assist (CGA). [place] provide cues , steadying assist 3 The helper provides less than half the effort to complete the activity 2 The helper provides more than half the effort to complete the activity 1 Dependent. The helper does all the effort to complete an activity 7 Patient refused to complete or attempt activity 9 The patient did not perform the activity before the current illness or injury 88 Not attempted due to Medical conditions or safety concerns Transfers (B, C, W/C) (FIM): 4 Toilet Transfer (QC): 4 Education OT Patient Education: Exercise program, Progress toward Goal/Update tx plan Teaching Recipient: Patient Teaching Methods: Demonstration, Discussion Response to Teaching: Verbalize Understanding, Return Demonstration OT Short Term Goals Short Term Goals Lower Body Dressing(FIM): 4 (met sometimes) Toileting(FIM): 4 (not met) Transfers (B,C,W/C) (FIM): 5 (not met) Toilet/Commode Transfer(FIM): 4 (met) Shower Transfer(FIM): 5 (not met) 1=Demonstrate adherence to instructed precautions during ADL tasks. 2=Patient will verbalize/demonstrate understanding of assistive devices/ modifications for ADL. 3=Patient will improve strength/tolerance for activity to enable patient to perform ADL's. OT Reverberatory Furnace Supervisor Goals Correction Goals Eating (FIM): 1 (Met 02/07/16) Grooming(FIM): 6 (Not met) Bathing(FIM): 6 (not met) Upper Body Dressing(FIM): 6 (not met) Lower Body Dressing(FIM): 5 (not met) Toileting(FIM): 5 (not met) Transfers (B,C,W/C) (FIM): 5 (not met) Toilet/Commode Transfer(FIM): 5 (not met) Shower Transfer(FIM): 5 (not met) Comprehension(FIM): 6 (MET) Expression (FIM): 5 (MET) Social Interaction(FIM): 5 (MET) Problem Solving(FIM): 5 (MET) Memory(FIM): 5 (MET) Continue with same LTGs Additional Goals: 2-Verbalize Understanding, 3-ImproveStrength/Enrrique 1=Demonstrate adherence to instructed precautions during ADL tasks. 2=Patient will verbalize/demonstrate understanding of assistive devices/ modifications for ADL. 3=Patient will improve strength/tolerance for activity to enable patient to perform ADL's. OT Education/Plan Problem List/Assessment Pt would benefit from skilled OT to increase her independence in basic self care to allow her to return home safely Discharge Recommendations Plan/Recommendations: Continue POC (Pt was to be discharged today but may be delayed until tomorrow. Hold DC Summary) Treatment Plan/Plan of Care Patient would benefit from OT for education, treatment and training to promote independence in ADL's, mobility, safety and/or upper extremity function for ADL' s. Plan of Care: ADL Retraining, Caregiver Training, Functional Mobility, Orthotic Fitting/Training, UE Funct Exercise/Act, UE Neuromus Re-Ed/Coord Visits Per Week: 10-11 Minutes/Day (M-F): 75-90 Minutes/Day (Sat/Maddox): prn Agreement: Yes Rehab Potential: Fair Time/GCodes Start Time: 10:00 Stop Time: 11:00 Total Time Billed (hr/min): 60 Billed Treatment Time visit, ADL 30 min, EX 30 min KELLY ATKINS OT Feb 08, 2016 11:17
--- NOTE | 2016-02-08 11:47 | Physical Therapy Daily Note ---
PT Daily Note-Current Subjective Pt was sitting in W/C after just finishing with OT. Pt reports feeling tired and needing to use BSC for BM. Pt reports having loose BM on antibiotic. Pt agrees to PT. Pain Numeric Pain Scale: 5-Moderate Pain Location: Right, Left Location Body Site: Knee Pain Description: Ache, Tightness Comment: Pt reports tightness during EX in knees. Pt has increased swelling in BLE. Mental Status Patient Orientation: Person, Place, Time, Situation Attachments: Other-See Comments (Trach.) Transfers Functional [place] Measure 0=Not Assessed/NA 4=Minimal Assistance 1=Total Assistance 5=Supervision or Setup 2=Maximal Assistance 6=Modified [place] 3=Moderate Assistance 7=Complete IndependenceIRFPAI Quality Coding Scale 6 Independent with activity with or without an assistive device 5 Patient requires set up or clean up by helper. Patient completes activity by themselves 4 Supervision or touching assist (CGA). [place] provide cues , steadying assist 3 The helper provides less than half the effort to complete the activity 2 The helper provides more than half the effort to complete the activity 1 Dependent. The helper does all the effort to complete an activity 7 Patient refused to complete or attempt activity 9 The patient did not perform the activity before the current illness or injury 88 Not attempted due to Medical conditions or safety concerns Scootin Rollin Supine to/from Sit: 5 Sit to/from Stand: 4 Bed to/from Chair: 4 Weight Bearing Weight Bearing Restriction: Full Weight Bearing Location Restriction: LE Bilateral Exercises Supine Ex: Bridging, Ankle pumps, Quad Set, Glut sets, Heel Slides, Scooting, Straight leg raise, Hip abd/add Supine Reps: 15 Treatments Pt transfers from W/C to [facility] using SPT but has weakness in legs (feels like jello when standing). Pt stood at [facility] to have assistance with pants while toileting. Pt had already had loose BM so changed pants and brief. Pt had to sit and rest during process due to fatigue and weakness. After clothes were changed, pt wanted to return to bed to rest. Pt able to transfer from standing to EOB at CGA then EOB to supine at SBA. After flattening the head of the bed, pt tried to bridge and push herself up in bed but unable to get far. After pt was repositioned, pt completed supine EX until fatigued. Pt left with all needs met at end of tx. Assessment Current Status: Fair Progress Pt is having frequent loose BMs and very fatigued from increased swelling in BLE as well as just having OT. PT will try pt again in afternoon to see if pt will feel better. PT Short Term Goals Short Term Goals Transfers (B,C,W/C) (FIM): 5 (not met) Gait (FIM): 1 Distance (FIM): 1=up to 49 ft Gait Distance Comment: 25' Gait Level of Assist: 3 Gait Assistive Device: FWW Wheelchair (FIM): 1 (achieved on 01/13/16) Wheelchair distance (FIM): 1=up to 49 ft Wheelchair Distance: 125' Wheelchair Level of Assist: 4 PT Financial Planner Goals Fpc Goals Transfers (B,C,W/C) (FIM): 5 Rollin Gait (FIM): 1 Gait distance (FIM): 1=up to 49 ft Distance: 45' Gait Level of Assist: 4 Gait Assistive Device: FWW Stairs (FIM): 1 # of Steps: 4 Stairs Level Of Assist: 4 PT Plan Problem List Problem List: Activity Tolerance, Functional Strength, Safety, Balance, Gait, Transfer Treatment/Plan Treatment Plan: Continue Plan of Care Treatment Plan: Bed Mobility, Education, Functional Activity Enrrique, Functional Strength, Group Therapy, Gait, Safety, Therapeutic Exercise, Transfers Visits Per Week: 10-11 Minutes/Day (M-F): 60-90 Minutes/Day (Sat/Maddox): PRN Safety Risks/Education Patient Education: Gait Training, Transfer Techniques, Correct Positioning, Safety Issues Teaching Recipient: Patient Teaching Methods: Discussion Response to Teaching: Verbalize Understanding Time/GCodes Time In: 1100 Time Out: 1145 Total Billed Treatment Time: 45 Total Billed Treatment visit, FA X2 (30m) & EX (15m) LUISA DASILVA PTA Feb 08, 2016 11:47
--- NOTE | 2016-02-08 14:47 | Occ Therapy Progress Note ---
Therapy Progress Note 1447 Pt reported that she was too tired to participate. She is still having some diarrhea and just finished up time with PT and respiratory. KELLY ATKINS OT Feb 08, 2016 14:47
--- NOTE | 2016-02-08 16:06 | Physical Therapy Daily Note ---
PT Daily Note-Current Subjective Pt continues to have loose BMs and is still tired from this morning. Pt agreed to PT if it could be done in her room to stay close to [facility]. Pain Numeric Pain Scale: 0-No Pain Location: No Pain Reported Mental Status Patient Orientation: Person, Place, Time, Situation Attachments: Other-See Comments (Trach.) Transfers Functional [place] Measure 0=Not Assessed/NA 4=Minimal Assistance 1=Total Assistance 5=Supervision or Setup 2=Maximal Assistance 6=Modified [place] 3=Moderate Assistance 7=Complete IndependenceIRFPAI Quality Coding Scale 6 Independent with activity with or without an assistive device 5 Patient requires set up or clean up by helper. Patient completes activity by themselves 4 Supervision or touching assist (CGA). [place] provide cues , steadying assist 3 The helper provides less than half the effort to complete the activity 2 The helper provides more than half the effort to complete the activity 1 Dependent. The helper does all the effort to complete an activity 7 Patient refused to complete or attempt activity 9 The patient did not perform the activity before the current illness or injury 88 Not attempted due to Medical conditions or safety concerns Exercises Supine Ex: Ankle pumps, Quad Set, Heel Slides, Straight leg raise, Hip abd/add Supine Reps: 10 Treatments Pt is very tired and wants to complete supine EX. Pt completes EX while PT gives instruction to sp on what EX have been done and why as well as how PT has transferred and walked with pt (gave Pt education). RT gave in to give pt a breathing tx since breathing was more labored. Pt was left with all needs met at end of tx. Assessment Current Status: Fair Progress Pt continues to fatigue easy and is having loose BMs. PT Short Term Goals Short Term Goals Transfers (B,C,W/C) (FIM): 5 (not met) Gait (FIM): 1 Distance (FIM): 1=up to 49 ft Gait Distance Comment: 25' Gait Level of Assist: 3 Gait Assistive Device: FWW Wheelchair (FIM): 1 (achieved on 01/13/16) Wheelchair distance (FIM): 1=up to 49 ft Wheelchair Distance: 125' Wheelchair Level of Assist: 4 PT Mcc Goals Mcc Goals Transfers (B,C,W/C) (FIM): 5 Rollin Gait (FIM): 1 Gait distance (FIM): 1=up to 49 ft Distance: 45' Gait Level of Assist: 4 Gait Assistive Device: FWW Stairs (FIM): 1 # of Steps: 4 Stairs Level Of Assist: 4 PT Plan Problem List Problem List: Activity Tolerance, Functional Strength, Safety, Balance, Gait, Transfer Treatment/Plan Treatment Plan: Continue Plan of Care Treatment Plan: Bed Mobility, Education, Functional Activity Enrrique, Functional Strength, Group Therapy, Gait, Safety, Therapeutic Exercise, Transfers Visits Per Week: 10-11 Minutes/Day (M-F): 60-90 Minutes/Day (Sat/Maddox): PRN Safety Risks/Education Patient Education: Gait Training, Transfer Techniques, Correct Positioning, Instructions to Caregiver, Safety Issues Teaching Recipient: Patient, Significant Other Teaching Methods: Discussion Response to Teaching: Verbalize Understanding Time/GCodes Time In: 1400 Time Out: 1425 Total Billed Treatment Time: 25 Total Billed Treatment visit, EX (15m) & FA (10m) LUISA DASILVA PTA Feb 08, 2016 16:06
[2016-02-08] MEDS ORDERED: LORATADINE (CLARITIN) 10 MG TAB PO NR (16:29)
[2016-02-08] MEDS: ENOXAPARIN 40 MG/0.4 ML (LOVENOX) SYR SC SCH (16:59)
[2016-02-08 18:16] VITALS: BP 126/83
[2016-02-08] MEDS: APAP 325 MG/10.15 ML LIQ (TYLENOL) UDC JT PRN (21:04)
[2016-02-09] MEDS: RT-ALBUTEROL/IPRATROPIUM 3 ML (DUONEB) VIAL INH SCH ×4 (02:13→21:08)
[2016-02-09] MEDS: ONDANSETRON 4 MG/2 ML (SDV) Z0FRAN IVP SCH ×3 (05:26→18:03)
[2016-02-09] MEDS: METOCLOPRAMIDE 10MG/10ML ORAL SOL(REGLAN) UDC PO SCH ×4 (05:26→21:39)
[2016-02-09 05:58] VITALS: BP 122/80
[2016-02-09 07:10] LABS: MEAN PLATELET VOLUME 8.3 FL (7.4-10.4); RED BLOOD COUNT 3.28 10^6/uL (4.35-5.85); RED CELL DISTRIBUTION WIDTH 15.8 % (10.0-14.5); WHITE BLOOD COUNT 7.4 10^3/uL (4.3-11.0)
[2016-02-09 07:31] LABS: ALANINE AMINOTRANSFERASE 55 U/L (0-55); ALBUMIN 2.9 G/DL (3.2-4.5); ANION GAP 9 MMOL/L (5-14); ASPARTATE AMINO TRANSFERASE 21 U/L (5-34); BILIRUBIN,TOTAL 0.4 MG/DL (0.1-1.0); BLOOD UREA NITROGEN 11 MG/DL (7-18); BUN/CREATININE RATIO 23; CALCIUM 8.1 MG/DL (8.5-10.1); CARBON DIOXIDE 30 MMOL/L (21-32); CHLORIDE 102 MMOL/L (98-107); CREATININE SERUM 0.47 MG/DL (0.60-1.30); GFR ESTIMATED > 60; GLUCOSE 83 MG/DL (70-105); POTASSIUM 2.9 MMOL/L (3.6-5.0); SODIUM 141 MMOL/L (135-145); TOTAL PROTEIN 4.8 G/DL (6.4-8.2)
[2016-02-09] MEDS: LACTOBACILLUS Acidoph/Bulgar (LACTINEX/FLORANEX) TAB JT SCH ×4 (08:40→21:38)
[2016-02-09] MEDS: DIPHENOXYLATE/ATROPINE 2.5MG/0.025MG (LOMOTIL) TAB JT SCH ×2 (08:40→21:38)
[2016-02-09] MEDS: guaiFENesin SYRUP 100 MG/5 ML 10 ML (ROBITUSSIN SF) JT SCH ×4 (08:40→21:39)
[2016-02-09] MEDS: MAGNESIUM OXIDE (MAG-OX)400 MG TAB JT SCH ×2 (08:40→18:03)
[2016-02-09] MEDS: LORATADINE (CLARITIN) 10 MG TAB PO SCH (08:41)
[2016-02-09] MEDS: FAMOTIDINE 20 MG (PEPCID) TABLET JT SCH ×2 (08:41→21:38)
[2016-02-09] MEDS: BENEFIBER (FROM DIETARY) DOCUMENTATION PURPOSE ONLY PO SCH ×3 (08:42→21:39)
[2016-02-09] MEDS: APAP 325 MG/10.15 ML LIQ (TYLENOL) UDC JT PRN ×2 (08:52→21:39)
[2016-02-09] MEDS: diphenhydrAMINE 25 MG TAB (BENADRYL) PO PRN (08:55)
--- NOTE | 2016-02-09 09:59 | Occupational Ther Daily Note ---
OT Current Status-Daily Note Subjective Pt lying in bed. Pt stated she had a headache rated 1-2/10. Notified nursing. Agreeable to OT. Appearance Alert, cooperative Mental Status/Objective Functional [place] Measure 0=Not Assessed/NA 4=Minimal Assistance 1=Total Assistance 5=Supervision or Setup 2=Maximal Assistance 6=Modified [place] 3=Moderate Assistance 7=Complete [place] ADL-Treatment Pt stated she had not had a bowel movement last night, but pt was incontinent of BM in bed. Using bed side rails pt scooted to EOB. FWW used to transfer pt to [facility], min assist. Assist to pull down brief, manage hygiene due to incontinence. Pt transferred from BSC with min assist using FWW to EOB. Pt doff/ donned blouse mod assist. Pt washed face, abdomen,arms and hands while seated at EOB, sponge bath. OT washed/dried back. Used FWW to transfer from EOB to w/c , min assist. Pt propelled w/c to bathroom to brush teeth, hair, mod I. Pt practiced don/doff socks while seated in w/c. 50% help to doff socks, 75% help to don socks. Pt lost her balance to the R side while up in the w/c. Pt propelled herself to gym. Used the arch activity to increase bilat shoulder strength (2 sets) on each arm, using medium extension, making it taller than she has done previously with R UE. Pt propelled herself back to her room. Pt transferred from w/c to recliner using FWW, min assist. Pt left in recliner. Call light in hand. All needs met. Functional [place] Measure 0=Not Assessed/NA 4=Minimal Assistance 1=Total Assistance 5=Supervision or Setup 2=Maximal Assistance 6=Modified [place] 3=Moderate Assistance 7=Complete IndependenceIRFPAI Quality Coding Scale 6 Independent with activity with or without an assistive device 5 Patient requires set up or clean up by helper. Patient completes activity by themselves 4 Supervision or touching assist (CGA). [place] provide cues , steadying assist 3 The helper provides less than half the effort to complete the activity 2 The helper provides more than half the effort to complete the activity 1 Dependent. The helper does all the effort to complete an activity 7 Patient refused to complete or attempt activity 9 The patient did not perform the activity before the current illness or injury 88 Not attempted due to Medical conditions or safety concerns Grooming (FIM): 6 Upper Body (FIM): 3 Transfers (B, C, W/C) (FIM): 4 Toilet/Commode Transfer (FIM): 4 Education OT Patient Education: Exercise program, Progress toward Goal/Update tx plan Teaching Recipient: Patient Teaching Methods: Discussion Response to Teaching: Verbalize Understanding, Return Demonstration OT Short Term Goals Short Term Goals Lower Body Dressing(FIM): 4 (met sometimes) Toileting(FIM): 4 (not met) Transfers (B,C,W/C) (FIM): 5 (not met) Toilet/Commode Transfer(FIM): 4 (met) Shower Transfer(FIM): 5 (not met) 1=Demonstrate adherence to instructed precautions during ADL tasks. 2=Patient will verbalize/demonstrate understanding of assistive devices/ modifications for ADL. 3=Patient will improve strength/tolerance for activity to enable patient to perform ADL's. OT Production Machine Operator Goals Detention Goals Eating (FIM): 1 (Met 02/07/16) Grooming(FIM): 6 (Not met) Bathing(FIM): 6 (not met) Upper Body Dressing(FIM): 6 (not met) Lower Body Dressing(FIM): 5 (not met) Toileting(FIM): 5 (not met) Transfers (B,C,W/C) (FIM): 5 (not met) Toilet/Commode Transfer(FIM): 5 (not met) Shower Transfer(FIM): 5 (not met) Comprehension(FIM): 6 (MET) Expression (FIM): 5 (MET) Social Interaction(FIM): 5 (MET) Problem Solving(FIM): 5 (MET) Memory(FIM): 5 (MET) Continue with same LTGs Additional Goals: 2-Verbalize Understanding, 3-ImproveStrength/Enrrique 1=Demonstrate adherence to instructed precautions during ADL tasks. 2=Patient will verbalize/demonstrate understanding of assistive devices/ modifications for ADL. 3=Patient will improve strength/tolerance for activity to enable patient to perform ADL's. OT Education/Plan Problem List/Assessment Pt would benefit from skilled OT to increase her independence in basic self care to allow her to return home safely Discharge Recommendations Plan/Recommendations: Continue POC (continue same goals) Treatment Plan/Plan of Care Patient would benefit from OT for education, treatment and training to promote independence in ADL's, mobility, safety and/or upper extremity function for ADL' s. Plan of Care: ADL Retraining, Caregiver Training, Functional Mobility, Orthotic Fitting/Training, UE Funct Exercise/Act, UE Neuromus Re-Ed/Coord Visits Per Week: 10-11 Minutes/Day (M-F): 75-90 Minutes/Day (Sat/Maddox): prn Agreement: Yes Rehab Potential: Fair Time/GCodes Start Time: 08:30 Stop Time: 09:30 Total Time Billed (hr/min): 60 Billed Treatment Time visit, ADL 45 min, EX 15 min KELLY ATKINS OT Feb 09, 2016 09:59
--- NOTE | 2016-02-09 10:07 | Speech Therapy Daily Note ---
Speech Daily Progress Note Subjective The patient was seated upright in recliner upon entrance. The patient reported fatigue, however, agreed to participate in dysphagia therapy on this date. To note: The patient was discharged from skilled speech services on 02/08/2016 due to anticipated discharge. Due to unforeseen circumstances, the patient was unable to discharge, therefore, the patient will re-initiate skilled services on this date. Objective Dysphagia Exercises: The patient completed two sets of ten repetitions of each exercise on this date. Direct modeling was provided by the patient prior to each exercise. The patient was encouraged to complete exercises throughout downtime. The patient denied any questions or concerns regarding exercises on this date. Assessment Assessment Current Status: Fair Progress Communication Comprehension: 6 Expression: 6 Social Cognition Social Interaction: 6 Problem Solvin Memory: 5 Speech Short Term Goals Short Term Goals Short Term Goals 1. The patient will independently demonstrate laryngeal, pharyngeal, and base of tongue exercises. PROGRESSING Time Frame-STG: Two Weeks Speech Assisted Goals Assisted Goals 1. The patient will tolerate PO trials of the least restrictive consistency without signs/symptoms of aspiration or laryngeal penetration. INITIATED 2015 Time Frame: Eight Weeks Comprehension: 6 (MET) Expression: 5 (MET) Social Interaction: 5 (MET) Problem Solvin (MET) Memory: 5 (MET) Speech-Plan Treatment Plan Speech Therapy Treatment Plan: Continue Plan of Care Treatment Duration: Feb 16, 2016 # of days/week 4 to 5 Visits Per Week: 4 to 5 Minutes/Day (M-F): 30 Rehab Potential: Fair Safety Risks/Education Teaching Recipient: Patient Teaching Methods: Demonstration, Handout, Discussion Response to Teaching: Verbalize Understanding, Return Demonstration, Reinforcement Needed Education Topics Provided: Dysphagia Exercises Time Speech Therapy Time In: 09:30 Speech Therapy Time Out: 10:00 Total Billed Time: 30 Billed Treatment Time 1ASAEL ELIZABETH Feb 09, 2016 10:07
[2016-02-09] MEDS: aCETylcysteine 20% (MUCOMYST) 30ML SOLN VIAL INH SCH ×2 (11:18→21:00)
--- NOTE | 2016-02-09 12:00 | Physical Therapy Daily Note ---
PT Daily Note-Current Subjective Pt sitting in recliner with feet elevated upon arrival. Pt is being fed upon arrival. Pt agrees to PT. Pain Numeric Pain Scale: 0-No Pain Location: No Pain Reported Mental Status Patient Orientation: Person, Place, Time, Situation Attachments: Other-See Comments (Trach.) Transfers Functional [place] Measure 0=Not Assessed/NA 4=Minimal Assistance 1=Total Assistance 5=Supervision or Setup 2=Maximal Assistance 6=Modified [place] 3=Moderate Assistance 7=Complete IndependenceIRFPAI Quality Coding Scale 6 Independent with activity with or without an assistive device 5 Patient requires set up or clean up by helper. Patient completes activity by themselves 4 Supervision or touching assist (CGA). [place] provide cues , steadying assist 3 The helper provides less than half the effort to complete the activity 2 The helper provides more than half the effort to complete the activity 1 Dependent. The helper does all the effort to complete an activity 7 Patient refused to complete or attempt activity 9 The patient did not perform the activity before the current illness or injury 88 Not attempted due to Medical conditions or safety concerns Scootin Sit to/from Stand: 4 Weight Bearing Weight Bearing Restriction: Full Weight Bearing Location Restriction: LE Bilateral Gait Training Does the Patient Walk?: Yes Distance (FIM): 1=up to 49 ft Distance: 5' Gait Level of Assist: 4 Gait Persons Needed: 1 Gait Assistive Device: FWW Pt walked approx. 5' before reporting she was dizzy and her legs felt like jello. Pt reports feeling faint and needing to sit down. Pt's legs give out and PT has to assist pt back to sitting in chair. Pt didn't attempt walking after that. Wheelchair Training Does the Pt Use a Wheelchair?: Yes Wheelchair Distance: 8=811-87 ft Distance: 60' Wheelchair Level of Assist: 5 Type of Wheelchair: Manual Pt needs reminders to use both her legs and arms to help propel her W/C. Pt fatigues easy. Exercises Seated Therapy Exercises: Ankle pumps, Sit to stand (10 reps), Long arc quads, Hip flexion, Kicking activity Seated Reps: 20 Treatments Pt finished tube feeding then completed seated EX in recliner. Pt took short rest break before transferring sit to stand using FWW at CGA-Min A. Pt then ambulated approx. 5' using FWW at [facility] before legs giving out and PT had to assist pt back to recliner to rest. Pt then completed SPT from recliner to W/ C. Pt propelled W/C from room to Therapy Gym. Pt completed another round of seated EX before resting. Pt then completed sit to stands using FWW at [facility] with rest break after each. Pt propelled W/C to Therapy Commons to visit with sp at end of tx. Pt left with all needs met at end of tx. Assessment Current Status: Fair Progress Pt fatigues easy and has been more weak lately. Pt also continues to have loose BMs and is incontinent. Pt is also a little depressed since she thought she was discharging yesterday but hasn't yet. PT Short Term Goals Short Term Goals Transfers (B,C,W/C) (FIM): 5 (not met) Gait (FIM): 1 Distance (FIM): 1=up to 49 ft Gait Distance Comment: 25' Gait Level of Assist: 3 Gait Assistive Device: FWW Wheelchair (FIM): 1 (achieved on 01/13/16) Wheelchair distance (FIM): 1=up to 49 ft Wheelchair Distance: 125' Wheelchair Level of Assist: 4 PT Senior Living Goals Senior Living Goals Transfers (B,C,W/C) (FIM): 5 Rollin Gait (FIM): 1 Gait distance (FIM): 1=up to 49 ft Distance: 45' Gait Level of Assist: 4 Gait Assistive Device: FWW Stairs (FIM): 1 # of Steps: 4 Stairs Level Of Assist: 4 PT Plan Problem List Problem List: Activity Tolerance, Functional Strength, Safety, Balance, Gait, Transfer Treatment/Plan Treatment Plan: Continue Plan of Care Treatment Plan: Bed Mobility, Education, Functional Activity Enrrique, Functional Strength, Group Therapy, Gait, Safety, Therapeutic Exercise, Transfers Visits Per Week: 10-11 Minutes/Day (M-F): 60-90 Minutes/Day (Sat/Maddox): PRN Safety Risks/Education Patient Education: Gait Training, Transfer Techniques, Correct Positioning, Safety Issues Teaching Recipient: Patient Teaching Methods: Discussion Response to Teaching: Verbalize Understanding Time/GCodes Time In: 1030 Time Out: 1130 Total Billed Treatment Time: 60 Total Billed Treatment visit, FA (15m), EX (15m), GT (15m) & WCH (15m) LUISA DASILVA PTA 28, 2016 12:00
--- NOTE | 2016-02-09 14:59 | Therapy Group Daily Note ---
Therapy Daily Group Note Patient Education Topic Energy Cons Exercises LE Seated Exercise, Sit to/from Stand, UE Exercise Other/Notes OT/PT group. Pt propelled herself into therapy commons area. Pt participated in a social interaction by introducing herself and answering two questions that were asked. One question was asked by a pt question asked was "What is the most amazing thing you have ever seen". Pt led UE/LE exercise. Energy conservation education was presented. Pt verbalized understanding with activity that incorporated sit to stand UE AROM and memory recall. Pt propelled herself back to her room. Pt left in sitting upright in her bed 30 degrees. Call light in hand. All needs met. Start Time: 13:00 Stop Time: 14:15 Total Billed Treatment Time: 75 Total Billed Treatment 1- GRP HUMBERTO LUNA Feb 09, 2016 14:59
[2016-02-09] MEDS: ENOXAPARIN 40 MG/0.4 ML (LOVENOX) SYR SC SCH (16:20)
[2016-02-09 18:03] VITALS: BP 105/69
[2016-02-10] MEDS: ONDANSETRON 4 MG/2 ML (SDV) Z0FRAN IVP SCH ×4 (00:10→16:41)
[2016-02-10] MEDS: RT-ALBUTEROL/IPRATROPIUM 3 ML (DUONEB) VIAL INH SCH ×4 (03:06→21:06)
[2016-02-10 05:26] VITALS: BP 102/64
[2016-02-10] MEDS: METOCLOPRAMIDE 10MG/10ML ORAL SOL(REGLAN) UDC PO SCH ×4 (05:54→21:02)
[2016-02-10] MEDS: LORATADINE (CLARITIN) 10 MG TAB PO SCH (08:23)
[2016-02-10] MEDS: DIPHENOXYLATE/ATROPINE 2.5MG/0.025MG (LOMOTIL) TAB JT SCH ×2 (08:23→21:02)
[2016-02-10] MEDS: FAMOTIDINE 20 MG (PEPCID) TABLET JT SCH ×2 (08:23→21:02)
[2016-02-10] MEDS: LACTOBACILLUS Acidoph/Bulgar (LACTINEX/FLORANEX) TAB JT SCH ×4 (08:23→21:02)
[2016-02-10] MEDS: guaiFENesin SYRUP 100 MG/5 ML 10 ML (ROBITUSSIN SF) JT SCH ×4 (08:23→21:03)
[2016-02-10] MEDS: MAGNESIUM OXIDE (MAG-OX)400 MG TAB JT SCH ×2 (08:24→16:41)
[2016-02-10] MEDS: BENEFIBER (FROM DIETARY) DOCUMENTATION PURPOSE ONLY PO SCH ×3 (09:00→21:03)
[2016-02-10] MEDS: aCETylcysteine 20% (MUCOMYST) 30ML SOLN VIAL INH SCH (09:59)
--- NOTE | 2016-02-10 10:04 | Occupational Ther Daily Note ---
OT Current Status-Daily Note Subjective Pt lying in bed. Pt expressed how she would like a pass to go home for Sunday and Sunday. No pain mentioned. Agreeable to OT. Appearance Alert, Cooperative Mental Status/Objective Functional [place] Measure 0=Not Assessed/NA 4=Minimal Assistance 1=Total Assistance 5=Supervision or Setup 2=Maximal Assistance 6=Modified [place] 3=Moderate Assistance 7=Complete [place] ADL-Treatment Pt agreed to shower. Using bed side rails pt scooted to EOB without help. Noticed pt not wearing pants only brief. FWW used to transfer pt to [facility] for toileting, Min A. Pt pulled down brief mid-way, managed hygiene, Min A. Pt doffed t-shirt, socks Min A help over heels). Pt propelled self to bathroom per w/c. Using grab bars pt transferred to shower bench, Min A. Pt washed arms,legs ,chest,abdomen,front/back perineal leaning side to side, using hand held shower, grab bars. OT assisted washing/drying back. Pt transferred from shower bench to w/c using grab bars Min A. Pt propelled self back to room, help needed to get through bathroom door. Pt able to get one foot through leg hole of brief, pants. Pt pulled brief, pants up to her thighs and needed helped to pull up to waist. FWW used to assist with standing, Min A. Pt sat back on w/c to don socks , blouse. Pt threaded both arms through arm sleeves, pulled blouse down front/ back. Needed help to pull blouse over head. Pt needed help with socks getting over her heel. Pt pulled socks to calf by using both hands to oracle programmer edge of socks. Pt propelled self back to bathroom to brush teeth,hair with out assistance. Pt propelled self back to room. Pt transferred from w/c to recliner FWW, Min A. Pt left sitting up right in recliner. Call light in hand. All needs met. Functional [place] Measure 0=Not Assessed/NA 4=Minimal Assistance 1=Total Assistance 5=Supervision or Setup 2=Maximal Assistance 6=Modified [place] 3=Moderate Assistance 7=Complete IndependenceIRFPAI Quality Coding Scale 6 Independent with activity with or without an assistive device 5 Patient requires set up or clean up by helper. Patient completes activity by themselves 4 Supervision or touching assist (CGA). [place] provide cues , steadying assist 3 The helper provides less than half the effort to complete the activity 2 The helper provides more than half the effort to complete the activity 1 Dependent. The helper does all the effort to complete an activity 7 Patient refused to complete or attempt activity 9 The patient did not perform the activity before the current illness or injury 88 Not attempted due to Medical conditions or safety concerns Eating (FIM): 1 (Tube feeding. pt is not able to manage herself) Eating (QC): 88 Grooming (FIM): 6 (w/c needed) Oral Hygiene (QC): 6 Toileting Hygiene (QC): 2 Bathing (FIM): 5 (supervision) Bathing Location: L Arm, R Arm, L Upper Leg, R Upper Leg, L Lower Leg ( including foot), R Lower Leg (including foot), Chest, Abdomen, Buttocks, Perineal Area Upper Body (FIM): 4 Upper Body Dressing (QC): 3 (A little more than half) Lower Body Dressing (FIM): 3 () Lower Body Dressing (QC): 3 On/Off Footwear (QC): 2 (Pt did 1/3 putting socks on) Toileting (FIM): 2 Transfers (B, C, W/C) (FIM): 4 (FWW ) Toilet/Commode Transfer (FIM): 4 Toilet Transfer (QC): 4 Shower Transfer(FIM): 4 (Grab bars, shower bench, ) Shower/Bathe Self (QC): 4 (supervision) Education OT Patient Education: Modified ADL techniques, Progress toward Goal/Update tx plan Teaching Recipient: Patient Teaching Methods: Discussion Response to Teaching: Verbalize Understanding, Return Demonstration OT Short Term Goals Short Term Goals Lower Body Dressing(FIM): 4 (met sometimes) Toileting(FIM): 4 (not met) Transfers (B,C,W/C) (FIM): 5 (not met) Toilet/Commode Transfer(FIM): 4 (met) Shower Transfer(FIM): 5 (not met) 1=Demonstrate adherence to instructed precautions during ADL tasks. 2=Patient will verbalize/demonstrate understanding of assistive devices/ modifications for ADL. 3=Patient will improve strength/tolerance for activity to enable patient to perform ADL's. OT Usp Goals Usp Goals Eating (FIM): 1 (Met 02/07/16) Grooming(FIM): 6 (Not met) Bathing(FIM): 6 (not met) Upper Body Dressing(FIM): 6 (not met) Lower Body Dressing(FIM): 5 (not met) Toileting(FIM): 5 (not met) Transfers (B,C,W/C) (FIM): 5 (not met) Toilet/Commode Transfer(FIM): 5 (not met) Shower Transfer(FIM): 5 (not met) Comprehension(FIM): 6 (MET) Expression (FIM): 5 (MET) Social Interaction(FIM): 5 (MET) Problem Solving(FIM): 5 (MET) Memory(FIM): 5 (MET) Continue with same LTGs Additional Goals: 2-Verbalize Understanding, 3-ImproveStrength/Enrrique 1=Demonstrate adherence to instructed precautions during ADL tasks. 2=Patient will verbalize/demonstrate understanding of assistive devices/ modifications for ADL. 3=Patient will improve strength/tolerance for activity to enable patient to perform ADL's. OT Education/Plan Problem List/Assessment Pt would benefit from skilled OT to increase her independence in basic self care to allow her to return home safely Discharge Recommendations Plan/Recommendations: Continue POC Treatment Plan/Plan of Care Patient would benefit from OT for education, treatment and training to promote independence in ADL's, mobility, safety and/or upper extremity function for ADL' s. Plan of Care: ADL Retraining, Caregiver Training, Functional Mobility, Orthotic Fitting/Training, UE Funct Exercise/Act, UE Neuromus Re-Ed/Coord Visits Per Week: 10-11 Minutes/Day (M-F): 75-90 Minutes/Day (Sat/Maddox): prn Agreement: Yes Rehab Potential: Fair Time/GCodes Start Time: 08:30 Stop Time: 09:30 Total Time Billed (hr/min): 60 Billed Treatment Time visit, ADL 60 min KELLY ATKINS OT Feb 10, 2016 10:04
--- NOTE | 2016-02-10 10:37 | Speech Therapy Daily Note ---
Speech Daily Progress Note Subjective The patient was seated upright in recliner upon entrance. The patient reported fatigue, however, agreed to participate in dysphagia therapy on this date. Objective Dysphagia Exercises: The patient completed two sets of ten repetitions of each exercise on this date. Direct modeling was provided by the patient prior to each exercise. The patient continues to demonstrate good accuracy throughout the session. Assessment Assessment Current Status: Fair Progress Treatment Plan Continue Plan of Care Communication Comprehension: 6 Expression: 6 Social Cognition Social Interaction: 6 Problem Solvin Memory: 5 Speech Short Term Goals Short Term Goals Short Term Goals 1. The patient will independently demonstrate laryngeal, pharyngeal, and base of tongue exercises. PROGRESSING Time Frame-STG: Two Weeks Speech Food Mixer Repairer Goals Custodial Goals 1. The patient will tolerate PO trials of the least restrictive consistency without signs/symptoms of aspiration or laryngeal penetration. INITIATED 2015 Time Frame: Eight Weeks Comprehension: 6 (MET) Expression: 5 (MET) Social Interaction: 5 (MET) Problem Solvin (MET) Memory: 5 (MET) Speech-Plan Treatment Plan Speech Therapy Treatment Plan: Continue Plan of Care Treatment Duration: Feb 16, 2016 # of days/week 5 Visits Per Week: 4 to 5 Minutes/Day (M-F): 30 Rehab Potential: Fair Safety Risks/Education Teaching Recipient: Patient Teaching Methods: Demonstration, Handout, Discussion Response to Teaching: Verbalize Understanding, Return Demonstration, Reinforcement Needed Education Topics Provided: Dysphagia Exercises Time Speech Therapy Time In: 09:30 Speech Therapy Time Out: 10:00 Total Billed Time: 30 Billed Treatment Time ASAEL Curran ELIZABETH Feb 10, 2016 10:37
--- NOTE | 2016-02-10 12:23 | Physical Therapy Daily Note ---
PT Daily Note-Current Subjective Pt is sitting up in recliner upon arrival. Pt reports feeling better with fewer BMs than previous few days. Pt agrees to PT. Pain Numeric Pain Scale: 3 Location: Left, Lateral Location Body Site: Hip Pain Description: Ache Mental Status Patient Orientation: Person, Place, Time, Situation Attachments: Other-See Comments (Trach.) Transfers Functional [place] Measure 0=Not Assessed/NA 4=Minimal Assistance 1=Total Assistance 5=Supervision or Setup 2=Maximal Assistance 6=Modified [place] 3=Moderate Assistance 7=Complete IndependenceIRFPAI Quality Coding Scale 6 Independent with activity with or without an assistive device 5 Patient requires set up or clean up by helper. Patient completes activity by themselves 4 Supervision or touching assist (CGA). [place] provide cues , steadying assist 3 The helper provides less than half the effort to complete the activity 2 The helper provides more than half the effort to complete the activity 1 Dependent. The helper does all the effort to complete an activity 7 Patient refused to complete or attempt activity 9 The patient did not perform the activity before the current illness or injury 88 Not attempted due to Medical conditions or safety concerns Scootin Rollin Supine to/from Sit: 4 Sit to/from Stand: 4 Bed to/from Chair: 4 Weight Bearing Weight Bearing Restriction: Full Weight Bearing Location Restriction: LE Bilateral Gait Training Does the Patient Walk?: Yes Distance (FIM): 3=858-14 ft Distance: 50' Gait Level of Assist: 3 Gait Persons Needed: 1 Gait Assistive Device: FWW Pt's emerald is very slow but when pt increases speed pt gets more unsteady and has LOB. Pt is very nervous about falling. Wheelchair Training Does the Pt Use a Wheelchair?: Yes Wheelchair Distance: 1=up to 49 ft Distance: 40' Wheelchair Level of Assist: 5 Type of Wheelchair: Manual Pt needs reminder to use both UE & LE to advance W/C. Exercises Supine Ex: Ankle pumps, Quad Set, Glut sets, Heel Slides, Straight leg raise, Hip abd/add Supine Reps: 15 Seated Therapy Exercises: Ankle pumps, Sit to stand (5), Long arc quads, Hip flexion, Kicking activity Seated Reps: 15 Treatments Pt transfers from recliner to standing using FWW at CGA. Pt then ambulates approx. 5' using FWW at Min-Mod A. Pt gets off balance and gets nervous and wants to sit in W/C. Pt propels W/C to Therapy Gym and then rests. Pt then completes seated EX in W/C (2 sets of 15 reps). Pt then takes short rest break before attempting ambulating again. Pt ambulates using FWW at Min-Mod A with W/ C following approx. 20', after rest pt tries again and gets 25' before sitting back in W/C to propel back to room to rest. Pt then transfers from W/C with SPT to EOB. Pt then transfers EOB to supine at Min A. Pt then completes supine EX before resting at end of tx with all needs met. Assessment Current Status: Good Progress Pt is walking more than she has in last couple of days. Pt is stronger and more independent than previous few days. PT Short Term Goals Short Term Goals Transfers (B,C,W/C) (FIM): 5 (not met) Gait (FIM): 1 Distance (FIM): 1=up to 49 ft Gait Distance Comment: 25' Gait Level of Assist: 3 Gait Assistive Device: FWW Wheelchair (FIM): 1 (achieved on 01/13/16) Wheelchair distance (FIM): 1=up to 49 ft Wheelchair Distance: 60' Wheelchair Level of Assist: 4 PT Client Solutions Director Goals Alf Goals Transfers (B,C,W/C) (FIM): 5 Rollin Gait (FIM): 1 Gait distance (FIM): 1=up to 49 ft Distance: 45' Gait Level of Assist: 4 Gait Assistive Device: FWW Stairs (FIM): 1 # of Steps: 4 Stairs Level Of Assist: 4 PT Plan Problem List Problem List: Activity Tolerance, Functional Strength, Safety, Balance, Gait, Transfer Treatment/Plan Treatment Plan: Continue Plan of Care Treatment Plan: Bed Mobility, Education, Functional Activity [place], Functional Strength, Group Therapy, Gait, Safety, Therapeutic Exercise, Transfers Visits Per Week: 10-11 Minutes/Day (M-F): 60-90 Minutes/Day (Sat/[place]): PRN Safety Risks/Education Patient Education: Gait Training, Transfer Techniques, Correct Positioning, W/ C Management, Safety Issues Teaching Recipient: Patient Teaching Methods: Discussion Response to Teaching: Verbalize Understanding Time/GCodes Time In: 1100 Time Out: 1200 Total Billed Treatment Time: 60 Total Billed Treatment visit, FA (15m), GT (15m) & EX X2 (30m) LUISA DASILVA SOLAR PANEL TECHNICIAN Feb 10, 2016 12:22
--- NOTE | 2016-02-10 13:51 | Occupational Ther Daily Note ---
OT Current Status-Daily Note Subjective Pt seen in room, up in bed, agreeable to OT. No pain mentioned initially Appearance Alert, cooperative Mental Status/Objective Functional [place] Measure 0=Not Assessed/NA 4=Minimal Assistance 1=Total Assistance 5=Supervision or Setup 2=Maximal Assistance 6=Modified [place] 3=Moderate Assistance 7=Complete [place] ADL-Treatment Functional [place] Measure 0=Not Assessed/NA 4=Minimal Assistance 1=Total Assistance 5=Supervision or Setup 2=Maximal Assistance 6=Modified [place] 3=Moderate Assistance 7=Complete IndependenceIRFPAI Quality Coding Scale 6 Independent with activity with or without an assistive device 5 Patient requires set up or clean up by helper. Patient completes activity by themselves 4 Supervision or touching assist (CGA). [place] provide cues , steadying assist 3 The helper provides less than half the effort to complete the activity 2 The helper provides more than half the effort to complete the activity 1 Dependent. The helper does all the effort to complete an activity 7 Patient refused to complete or attempt activity 9 The patient did not perform the activity before the current illness or injury 88 Not attempted due to Medical conditions or safety concerns Other Treatment Pt transferred to sit EOB without assistance. Worked on R shoulder flex and abd x 5 reps each, with skilled facilitation including place and hold to increase shoulder strength as needed to get shirt over her head. Pt is able to flex/abd R arm to about 90 degrees but is unable to move into full flexion/abd against gravity but she can almost hold the position (3-/5). Also did active IR/ER x 10 reps and bilat AAROM for shoulder flex (pt reported discomfort in shoulder). Pt returned to supine in bed, HOB at 30 degrees, 4 rails up, all needs met. Education OT Patient Education: Exercise program, Home exercise program Teaching Recipient: Patient Teaching Methods: Demonstration, Discussion Response to Teaching: Verbalize Understanding, Return Demonstration OT Short Term Goals Short Term Goals Lower Body Dressing(FIM): 4 (met sometimes) Toileting(FIM): 4 (not met) Transfers (B,C,W/C) (FIM): 5 (not met) Toilet/Commode Transfer(FIM): 4 (met) Shower Transfer(FIM): 5 (not met) 1=Demonstrate adherence to instructed precautions during ADL tasks. 2=Patient will verbalize/demonstrate understanding of assistive devices/ modifications for ADL. 3=Patient will improve strength/tolerance for activity to enable patient to perform ADL's. OT Big Data Software Engineer Goals Big Data Software Engineer Goals Eating (FIM): 1 (Met 02/07/16) Grooming(FIM): 6 (Not met) Bathing(FIM): 6 (not met) Upper Body Dressing(FIM): 6 (not met) Lower Body Dressing(FIM): 5 (not met) Toileting(FIM): 5 (not met) Transfers (B,C,W/C) (FIM): 5 (not met) Toilet/Commode Transfer(FIM): 5 (not met) Shower Transfer(FIM): 5 (not met) Comprehension(FIM): 6 (MET) Expression (FIM): 5 (MET) Social Interaction(FIM): 5 (MET) Problem Solving(FIM): 5 (MET) Memory(FIM): 5 (MET) Continue with same LTGs Additional Goals: 2-Verbalize Understanding, 3-ImproveStrength/Enrrique 1=Demonstrate adherence to instructed precautions during ADL tasks. 2=Patient will verbalize/demonstrate understanding of assistive devices/ modifications for ADL. 3=Patient will improve strength/tolerance for activity to enable patient to perform ADL's. OT Education/Plan Problem List/Assessment Pt would benefit from skilled OT to increase her independence in basic self care to allow her to return home safely Discharge Recommendations Plan/Recommendations: Continue POC Treatment Plan/Plan of Care Patient would benefit from OT for education, treatment and training to promote independence in ADL's, mobility, safety and/or upper extremity function for ADL' s. Plan of Care: ADL Retraining, Caregiver Training, Functional Mobility, Orthotic Fitting/Training, UE Funct Exercise/Act, UE Neuromus Re-Ed/Coord Visits Per Week: 10-11 Minutes/Day (M-F): 75-90 Minutes/Day (Sat/[place]): prn Agreement: Yes Rehab Potential: Fair Time/GCodes Start Time: 13:15 Stop Time: 13:30 Total Time Billed (hr/min): 15 Billed Treatment Time visit, 15 neuromotor KELLY ATKINS OT Feb 10, 2016 13:51
--- NOTE | 2016-02-10 14:20 | Physical Therapy Daily Note ---
PT Daily Note-Current Subjective Pt supine in bed upon arrival. Pt agreed to PT. Pain Numeric Pain Scale: 0-No Pain Location: No Pain Reported Mental Status Patient Orientation: Person, Place, Time, Situation Attachments: Other-See Comments (Trach.) Transfers Functional [place] Measure 0=Not Assessed/NA 4=Minimal Assistance 1=Total Assistance 5=Supervision or Setup 2=Maximal Assistance 6=Modified [place] 3=Moderate Assistance 7=Complete IndependenceIRFPAI Quality Coding Scale 6 Independent with activity with or without an assistive device 5 Patient requires set up or clean up by helper. Patient completes activity by themselves 4 Supervision or touching assist (CGA). [place] provide cues , steadying assist 3 The helper provides less than half the effort to complete the activity 2 The helper provides more than half the effort to complete the activity 1 Dependent. The helper does all the effort to complete an activity 7 Patient refused to complete or attempt activity 9 The patient did not perform the activity before the current illness or injury 88 Not attempted due to Medical conditions or safety concerns Exercises Supine Ex: Ankle pumps, Quad Set, Glut sets, Heel Slides, Straight leg raise, Hip abd/add Supine Reps: 15 Treatments Pt completed supine EX in bed for tx. Pt was left with all needs met at end of tx. Assessment Current Status: Fair Progress Pt was able to complete EX with little difficulty. Pt fatigues easy though and needs rest break. PT Short Term Goals Short Term Goals Transfers (B,C,W/C) (FIM): 5 (not met) Gait (FIM): 1 Distance (FIM): 1=up to 49 ft Gait Distance Comment: 25' Gait Level of Assist: 3 Gait Assistive Device: FWW Wheelchair (FIM): 1 (achieved on 01/13/16) Wheelchair distance (FIM): 1=up to 49 ft Wheelchair Distance: 40' Wheelchair Level of Assist: 4 PT Alum Plant Operator Goals Fci Goals Transfers (B,C,W/C) (FIM): 5 Rollin Gait (FIM): 1 Gait distance (FIM): 1=up to 49 ft Distance: 45' Gait Level of Assist: 4 Gait Assistive Device: FWW Stairs (FIM): 1 # of Steps: 4 Stairs Level Of Assist: 4 PT Plan Problem List Problem List: Activity Tolerance, Functional Strength, Safety, Balance, Gait, Transfer, Bed Mobility Treatment/Plan Treatment Plan: Continue Plan of Care Treatment Plan: Bed Mobility, Education, Functional Activity [place], Functional Strength, Group Therapy, Gait, Safety, Therapeutic Exercise, Transfers Visits Per Week: 10-11 Minutes/Day (M-F): 60-90 Minutes/Day (Sat/[place]): PRN Safety Risks/Education Patient Education: Gait Training, Transfer Techniques, Correct Positioning, Safety Issues Teaching Recipient: Patient Teaching Methods: Discussion Response to Teaching: Verbalize Understanding Time/GCodes Time In: 1400 Time Out: 1415 Total Billed Treatment Time: 15 Total Billed Treatment visit, EX (15m) LUISA DASILVA RAISER HELPER Feb 10, 2016 14:20
[2016-02-10] MEDS: ENOXAPARIN 40 MG/0.4 ML (LOVENOX) SYR SC SCH (16:41)
[2016-02-10 18:05] VITALS: BP 105/68
[2016-02-10] MEDS: APAP 325 MG/10.15 ML LIQ (TYLENOL) UDC JT PRN (21:03)
[2016-02-11] MEDS: ONDANSETRON 4 MG/2 ML (SDV) Z0FRAN IVP SCH ×4 (00:26→17:38)
[2016-02-11] MEDS: CATHETER FLUSH 10 ML SYR IV PRN ×3 (00:26→21:12)
[2016-02-11] MEDS: RT-ALBUTEROL/IPRATROPIUM 3 ML (DUONEB) VIAL INH SCH ×4 (03:28→23:58)
[2016-02-11 06:00] VITALS: BP 102/67
[2016-02-11] MEDS: METOCLOPRAMIDE 10MG/10ML ORAL SOL(REGLAN) UDC PO SCH ×4 (06:20→21:01)
[2016-02-11] MEDS: DIPHENOXYLATE/ATROPINE 2.5MG/0.025MG (LOMOTIL) TAB JT SCH ×2 (08:28→21:02)
[2016-02-11] MEDS: MAGNESIUM OXIDE (MAG-OX)400 MG TAB JT SCH ×2 (08:28→17:38)
[2016-02-11] MEDS: FAMOTIDINE 20 MG (PEPCID) TABLET JT SCH ×2 (08:28→21:02)
[2016-02-11] MEDS: LORATADINE (CLARITIN) 10 MG TAB PO SCH (08:28)
[2016-02-11] MEDS: guaiFENesin SYRUP 100 MG/5 ML 10 ML (ROBITUSSIN SF) JT SCH ×4 (08:28→21:01)
[2016-02-11] MEDS: LACTOBACILLUS Acidoph/Bulgar (LACTINEX/FLORANEX) TAB JT SCH ×4 (08:28→21:02)
[2016-02-11] MEDS: BENEFIBER (FROM DIETARY) DOCUMENTATION PURPOSE ONLY PO SCH ×3 (08:29→21:02)
--- NOTE | 2016-02-11 09:08 | PM & R (SOAP) Progress Note ---
Subjective Subjective/Events-last exam Patient was seen in her room this AM Discussed case with RNS yesterday and today Patient never was discharged on the due to issues with Home Health available thru her Insurance.She remains min assist for transfers and fatiques easily DR Bardales and Stew away til next year,Dr Staples has signed off on case.Patient reports that nausea has improved with clearing of J tube and patient tolerating Bolus feeds well during day and continuous at night.Patient continent of Bowel and bladder Review of Systems General: Fatigue Neurological: : Weakness Objective Exam Last Set of Vital Signs Vital Signs Date Time Temp Pulse Resp B/P Pulse Ox O2 Delivery O2 Flow Rate FiO2 02/11/16 08:37 Room Air 02/11/16 06:00 98.5 88 18 102/67 94 02/10/16 16:06 94 Capillary Refill : I&O Intake and Output 02/11/16 00:00 Intake Total 2320 ml Output Total 750 ml Balance 1570 ml Intake Oral 0 ml Tube Feeding 1320 ml Other 1000 ml Output Urine Total 750 ml # Voids 2 # Bowel Movements 4 General: Alert, Oriented X3, Cooperative, No Acute Distress HEENT: Atraumatic, PERRLA, EOMI, Mucous Memb Moist/[place] Neck: Other (Trach functioning) Lungs: Clear to Auscultation Heart: Regular Rate Abdomen: Normal Bowel Sounds, Soft, No Tenderness, Other (feeding tube in place ) Extremities: No Edema Neuro: Other (generalized weakness) Results Lab Laboratory Tests 02/09/16 06:54: Alanine Aminotransferase (ALT/SGPT) 55, Albumin 2.9L, Alkaline Phosphatase 60, Anion Gap 9, Aspartate Amino Transf (AST/SGOT) 21, BUN/Creatinine Ratio 23, Blood Urea Nitrogen 11, Calcium Level 8.1L, Carbon Dioxide Level 30, Chloride Level 102, Creatinine 0.47L, Estimat Glomerular Filtration Rate > 60, Glucose Level 83, Hematocrit 31L, Hemoglobin 9.7L, Mean Corpuscular Hemoglobin 30, Mean Corpuscular Hemoglobin Concent 32, Mean Corpuscular Volume 93, Mean Platelet Volume 8.3, Platelet Count 171, Potassium Level 2.9L, Red Blood Count 3.28L, Red Cell Distribution Width 15.8H, Sodium Level 141, Total Bilirubin 0.4, Total Protein 4.8L, White Blood Count 7.4 Microbiology 01/25/16 Blood Culture - Final, Complete No growth 01/27/16 C. difficile GDH Antigen & Toxins - Final, Complete 01/25/16 Gram Stain - Final, Complete 01/25/16 Sputum Culture - Final, Complete Pseudomonas Aeruginosa 01/26/16 Urine Culture - Final, Complete Enterococcus Faecium Pseudomonas Aeruginosa Assessment/Plan Assessment S/P crani and removal Met lesion from breast ca Dysphagia NPO on tube feeds by J Tube now on bulus during day and continuous at HS S/P trach on trach collar at night and with PMV during day-now with o2 by trach collar to maintain sats S/P Radiation Therapy course while on Swing bed anemia s/p transfusion 2 unis PRBCS intermittent nausea felt to be ralated to meds-Zofran scheduled-rresolved for most part with J Tube cleared Diarrhea multifactorial Lomotil and Benefiber on Yowwx-[id number]-Caczg for cdif negative Recuurent pneumonia due to Vocal cord paralysis and secretions to complete course of IV antibiotics-doing better Plan Continue PT/OT/ST as tolerated Appreciate their notes and Specialists notes., Oral Thrush treated- Nystatin d/cd earlier during stay Current labs noted F/U with DR aBrdales and Jam ( Interventional Radiology)as needed Discharge on hold for now. Awaiting stool for cdif-done negative Case management to f/u re disposition once course of antibiotics completed. Day pass for Weekend New YEars as per patients reqwuest holiday see orders,. F/U with FRANCOISE and DR Saravia next week re disposition UZMA VILLALOBOS MD Feb 11, 2016 09:08
--- NOTE | 2016-02-11 10:22 | Speech Therapy Daily Note ---
Speech Daily Progress Note Subjective The patient was laying in bed upon entrance and repositioned upright prior to session. The patient reported fatigue, however, agreed to participate in dysphagia therapy on this date. Objective Dysphagia Exercises: The patient completed two sets of ten repetitions of each exercise on this date. Direct modeling was provided by the patient prior to each exercise. The patient continues to demonstrate good accuracy throughout the session. Assessment Assessment Current Status: Fair Progress Treatment Plan Continue Plan of Care Communication Comprehension: 6 Expression: 6 Social Cognition Social Interaction: 6 Problem Solvin Memory: 5 Speech Short Term Goals Short Term Goals Short Term Goals 1. The patient will independently demonstrate laryngeal, pharyngeal, and base of tongue exercises. PROGRESSING Time Frame-STG: Two Weeks Speech Correction Goals Correction Goals 1. The patient will tolerate PO trials of the least restrictive consistency without signs/symptoms of aspiration or laryngeal penetration. INITIATED 2015 Time Frame: Eight Weeks Comprehension: 6 (MET) Expression: 5 (MET) Social Interaction: 5 (MET) Problem Solvin (MET) Memory: 5 (MET) Speech-Plan Treatment Plan Speech Therapy Treatment Plan: Continue Plan of Care Treatment Duration: Feb 16, 2016 # of days/week 5 Visits Per Week: 4 to 5 Minutes/Day (M-F): 30 Rehab Potential: Fair Safety Risks/Education Teaching Recipient: Patient Teaching Methods: Demonstration, Handout, Discussion Response to Teaching: Verbalize Understanding, Return Demonstration, Reinforcement Needed Education Topics Provided: Dysphagia Exercises Time Speech Therapy Time In: 08:00 Speech Therapy Time Out: 08:30 Total Billed Time: 30 Billed Treatment Time ASAEL Curran GILBERT VORA Feb 11, 2016 10:22
--- NOTE | 2016-02-11 11:36 | Diagnostic Imaging Report ---
EXAM: PA and lateral views of the chest. Comparison with 01/28/2016. FINDINGS: There are areas of scarring and interstitial thickening in the lungs that appear chronic. Mild left basilar infiltrate previously seen that appears improved. Right breast implant density is noted. The heart size is normal. No effusion or pneumothorax. Tracheostomy tube and right IJ venous catheter are again noted. There is a catheter projecting over the abdomen also seen. IMPRESSION: Diffuse interstitial thickening. No acute process. Dictated by: Dictated on workstation # [id number]
--- NOTE | 2016-02-11 12:10 | Occupational Ther Daily Note ---
OT Current Status-Daily Note Subjective Pt lying in bed. No pain reported. Agreeable to OT. Appearance Alert, Cooperative Mental Status/Objective Functional [place] Measure 0=Not Assessed/NA 4=Minimal Assistance 1=Total Assistance 5=Supervision or Setup 2=Maximal Assistance 6=Modified [place] 3=Moderate Assistance 7=Complete [place] ADL-Treatment Pt notified OT she needed to go to the bathroom. Pt scooted to EOB. FWW to transfer pt to BSC, Min A. Pt pulled brief down past thighs and managed hygiene , Min A to maintain standing. Pt transferred from BSC to EOB FWW, Min A. Pt able to push both feet/legs through pant legs, Min A (help with elastic at ankle ). Pt stood in front of FWW to pull up brief/pants, Min A to maintain balance. Pt stated blouse and socks didn't need to be changed. Pt transferred from EOB to w/c using FWW, Min A. Pt propelled self to bathroom to wash face, brush teeth , hair, mod I. Pt propelled self to gym. Using arm bike for 10 min 10 maloney for strength, taking at least 2 recovery breaks. Box and Blocks gross motor test: R: 32 blocks, L 33 blocks. Previously tested on 12/10/15 with score R: 21 , L 29 (showing increased speed and coordination in both UEs, especially R). Although scores have improved, they are about half of norms for her age. Pt transported back to room. Pt transferred to recliner FWW, Min A. Pt left sitting in recliner, call light in hand. All needs met. Functional [place] Measure 0=Not Assessed/NA 4=Minimal Assistance 1=Total Assistance 5=Supervision or Setup 2=Maximal Assistance 6=Modified [place] 3=Moderate Assistance 7=Complete IndependenceIRFPAI Quality Coding Scale 6 Independent with activity with or without an assistive device 5 Patient requires set up or clean up by helper. Patient completes activity by themselves 4 Supervision or touching assist (CGA). [place] provide cues , steadying assist 3 The helper provides less than half the effort to complete the activity 2 The helper provides more than half the effort to complete the activity 1 Dependent. The helper does all the effort to complete an activity 7 Patient refused to complete or attempt activity 9 The patient did not perform the activity before the current illness or injury 88 Not attempted due to Medical conditions or safety concerns Grooming (FIM): 6 Toileting (FIM): 4 Toilet/Commode Transfer (FIM): 4 Education OT Patient Education: Progress toward Goal/Update tx plan Teaching Recipient: Patient Teaching Methods: Demonstration Response to Teaching: Verbalize Understanding, Return Demonstration OT Short Term Goals Short Term Goals Lower Body Dressing(FIM): 4 (met sometimes) Toileting(FIM): 4 (not met) Transfers (B,C,W/C) (FIM): 5 (not met) Toilet/Commode Transfer(FIM): 4 (met) Shower Transfer(FIM): 5 (not met) 1=Demonstrate adherence to instructed precautions during ADL tasks. 2=Patient will verbalize/demonstrate understanding of assistive devices/ modifications for ADL. 3=Patient will improve strength/tolerance for activity to enable patient to perform ADL's. OT Procurement Services Manager Goals Assisted Goals Eating (FIM): 1 (Met 02/07/16) Grooming(FIM): 6 (Not met) Bathing(FIM): 6 (not met) Upper Body Dressing(FIM): 6 (not met) Lower Body Dressing(FIM): 5 (not met) Toileting(FIM): 5 (not met) Transfers (B,C,W/C) (FIM): 5 (not met) Toilet/Commode Transfer(FIM): 5 (not met) Shower Transfer(FIM): 5 (not met) Comprehension(FIM): 6 (MET) Expression (FIM): 5 (MET) Social Interaction(FIM): 5 (MET) Problem Solving(FIM): 5 (MET) Memory(FIM): 5 (MET) Continue with same LTGs Additional Goals: 2-Verbalize Understanding, 3-ImproveStrength/Enrrique 1=Demonstrate adherence to instructed precautions during ADL tasks. 2=Patient will verbalize/demonstrate understanding of assistive devices/ modifications for ADL. 3=Patient will improve strength/tolerance for activity to enable patient to perform ADL's. OT Education/Plan Problem List/Assessment Pt would benefit from skilled OT to increase her independence in basic self care to allow her to return home safely Discharge Recommendations Plan/Recommendations: Continue POC Treatment Plan/Plan of Care Patient would benefit from OT for education, treatment and training to promote independence in ADL's, mobility, safety and/or upper extremity function for ADL' s. Plan of Care: ADL Retraining, Caregiver Training, Functional Mobility, Orthotic Fitting/Training, UE Funct Exercise/Act, UE Neuromus Re-Ed/Coord Visits Per Week: 10-11 Minutes/Day (M-F): 75-90 Minutes/Day (Sat/[place]): prn Agreement: Yes Rehab Potential: Fair Time/GCodes Start Time: 08:30 Stop Time: 09:30 Total Time Billed (hr/min): 60 Billed Treatment Time visit ADL 30 min, EX 30 min KELLY ATKINS OT Feb 11, 2016 12:10
--- NOTE | 2016-02-11 12:58 | Physical Therapy Daily Note ---
PT Daily Note-Current Subjective Patient agrees to PT. No c/o at this time. Pain Numeric Pain Scale: 0-No Pain Location: No Pain Reported Mental Status Patient Orientation: Normal For Age Transfers Functional [place] Measure 0=Not Assessed/NA 4=Minimal Assistance 1=Total Assistance 5=Supervision or Setup 2=Maximal Assistance 6=Modified [place] 3=Moderate Assistance 7=Complete IndependenceIRFPAI Quality Coding Scale 6 Independent with activity with or without an assistive device 5 Patient requires set up or clean up by helper. Patient completes activity by themselves 4 Supervision or touching assist (CGA). [place] provide cues , steadying assist 3 The helper provides less than half the effort to complete the activity 2 The helper provides more than half the effort to complete the activity 1 Dependent. The helper does all the effort to complete an activity 7 Patient refused to complete or attempt activity 9 The patient did not perform the activity before the current illness or injury 88 Not attempted due to Medical conditions or safety concerns Transfers (B, C, W/C) (FIM): 4 Scootin Rollin Roll Left to Right (QC): 5 Supine to/from Sit: 5 Sit to/from Stand: 4 Sit to Lying (QC): 5 Sit to Stand (QC): 4 Chair/Lam-hq-Zyujq Xfer(QC): 4 Bed to/from Chair: 4 CGA for safety Gait Training Does the Patient Walk?: Yes Gait (FIM): 1 Distance (FIM): 1=up to 49 ft Distance: 30' x 6; 45' x 1 Walk 10 feet (QC): 3 Gait Level of Assist: 4 Gait Persons Needed: 1 Gait Assistive Device: FWW decreased emerald/slow, shuffle gait sequence Stair Training Stair Training: Handrails/: 1 handrail, uses walker Stairs (FIM): 2 #of Steps: 4 1 Step (curb) (QC): 3 4 Steps (QC): 3 Stairs: Pattern: Step to Level of Assist: 3 Exercises NuStep Minutes: 15 NuStep Workload: 2 (reciprocal movement) Assessment Patient tolerated treatment well and family education/training with gait and transfers provided with spouse. Spouse demonstrates good technique and knowledge with use of gait belt. PT Short Term Goals Short Term Goals Transfers (B,C,W/C) (FIM): 5 (not met) Gait (FIM): 1 Distance (FIM): 1=up to 49 ft Gait Distance Comment: 25' Gait Level of Assist: 3 Gait Assistive Device: FWW Wheelchair (FIM): 1 (achieved on 01/13/16) Wheelchair distance (FIM): 1=up to 49 ft Wheelchair Distance: 40' Wheelchair Level of Assist: 4 PT Filler Sifter Machine Goals Chcf Goals Transfers (B,C,W/C) (FIM): 5 Rollin Gait (FIM): 1 Gait distance (FIM): 1=up to 49 ft Distance: 45' Gait Level of Assist: 4 Gait Assistive Device: FWW Stairs (FIM): 1 # of Steps: 4 Stairs Level Of Assist: 4 PT Plan Treatment/Plan Treatment Plan: Continue Plan of Care Treatment Plan: Bed Mobility, Education, Functional Activity Enrrique, Functional Strength, Group Therapy, Gait, Safety, Therapeutic Exercise, Transfers Visits Per Week: 10-11 Minutes/Day (M-F): 60-90 Minutes/Day (Sat/[place]): PRN Time/GCodes Time In: 1100 Time Out: 1200 Total Billed Treatment Time: 60 Total Billed Treatment 1 visit GT x 2 30 min FA 15 min EX 15 min TONG STROUD PT Feb 11, 2016 12:58
[2016-02-11 12:59] LABS: ALANINE AMINOTRANSFERASE 36 U/L (0-55); ALBUMIN 3.4 G/DL (3.2-4.5); ANION GAP 12 MMOL/L (5-14); ASPARTATE AMINO TRANSFERASE 19 U/L (5-34); BILIRUBIN,TOTAL 0.5 MG/DL (0.1-1.0); BLOOD UREA NITROGEN 5 MG/DL (7-18); BUN/CREATININE RATIO 9; CALCIUM 8.9 MG/DL (8.5-10.1); CARBON DIOXIDE 27 MMOL/L (21-32); CHLORIDE 99 MMOL/L (98-107); CREATININE SERUM 0.54 MG/DL (0.60-1.30); GFR ESTIMATED > 60; GLUCOSE 82 MG/DL (70-105); POTASSIUM 3.3 MMOL/L (3.6-5.0); SODIUM 138 MMOL/L (135-145); TOTAL PROTEIN 5.9 G/DL (6.4-8.2)
--- NOTE | 2016-02-11 14:43 | Therapy Group Daily Note ---
Therapy Daily Group Note Other/Notes The rehab patients had group therapy today in the common area. Each patient was transported to group therapy by ambulation or wheelchair. After everyone was gathered, each patient had to introduce themselves, state where they were from, and answer a question that involved memory and critical thinking. Then, each patient was involved in a memory game, interrupted intermittently by random upper and lower extremity exercises. Finally, the group was educated about different topics of home safety, each patient had to participate and give examples or advise on home safety too. Start Time: 13:00 Stop Time: 14:15 Total Billed Treatment Time: 75 Total Billed Treatment 1 visit GRP 75 min JUAN SMITH PT Feb 11, 2016 14:43
[2016-02-11] MEDS: ENOXAPARIN 40 MG/0.4 ML (LOVENOX) SYR SC SCH (16:11)
[2016-02-11 19:00] VITALS: BP 100/67
[2016-02-11] MEDS: APAP 325 MG/10.15 ML LIQ (TYLENOL) UDC JT PRN (21:01)
[2016-02-11] MEDS: ONDANSETRON 4 MG/5 ML ORAL SOLN (ZOFRAN) 5 ML JT SCH (23:34)
[2016-02-12] MEDS: METOCLOPRAMIDE 10MG/10ML ORAL SOL(REGLAN) UDC PO SCH ×4 (05:46→21:06)
[2016-02-12] MEDS: ONDANSETRON 4 MG/5 ML ORAL SOLN (ZOFRAN) 5 ML JT SCH ×4 (05:46→23:24)
[2016-02-12 06:12] VITALS: BP 98/62
[2016-02-12] MEDS: MAGNESIUM OXIDE (MAG-OX)400 MG TAB JT SCH ×2 (08:45→18:26)
[2016-02-12] MEDS: BENEFIBER (FROM DIETARY) DOCUMENTATION PURPOSE ONLY PO SCH ×3 (08:45→21:07)
[2016-02-12] MEDS: LACTOBACILLUS Acidoph/Bulgar (LACTINEX/FLORANEX) TAB JT SCH ×4 (08:45→21:06)
[2016-02-12] MEDS: FAMOTIDINE 20 MG (PEPCID) TABLET JT SCH ×2 (08:45→21:06)
[2016-02-12] MEDS: LORATADINE (CLARITIN) 10 MG TAB PO SCH (08:45)
[2016-02-12] MEDS: guaiFENesin SYRUP 100 MG/5 ML 10 ML (ROBITUSSIN SF) JT SCH ×4 (08:45→21:06)
[2016-02-12] MEDS: DIPHENOXYLATE/ATROPINE 2.5MG/0.025MG (LOMOTIL) TAB JT SCH ×2 (08:45→21:06)
[2016-02-12] MEDS: RT-ALBUTEROL/IPRATROPIUM 3 ML (DUONEB) VIAL INH SCH ×3 (09:24→19:46)
--- NOTE | 2016-02-12 11:10 | Physical Therapy Daily Note ---
PT Daily Note-Current Subjective Patient is in bed and agrees to therapy. Pain Numeric Pain Scale: 0-No Pain Location: No Pain Reported Mental Status Patient Orientation: Normal For Age Transfers Functional [place] Measure 0=Not Assessed/NA 4=Minimal Assistance 1=Total Assistance 5=Supervision or Setup 2=Maximal Assistance 6=Modified [place] 3=Moderate Assistance 7=Complete IndependenceIRFPAI Quality Coding Scale 6 Independent with activity with or without an assistive device 5 Patient requires set up or clean up by helper. Patient completes activity by themselves 4 Supervision or touching assist (CGA). [place] provide cues , steadying assist 3 The helper provides less than half the effort to complete the activity 2 The helper provides more than half the effort to complete the activity 1 Dependent. The helper does all the effort to complete an activity 7 Patient refused to complete or attempt activity 9 The patient did not perform the activity before the current illness or injury 88 Not attempted due to Medical conditions or safety concerns Transfers (B, C, W/C) (FIM): 4 Scootin Rollin Roll Left to Right (QC): 5 Supine to/from Sit: 5 Sit to/from Stand: 4 Sit to Lying (QC): 5 Sit to Stand (QC): 4 Chair/Nhn-sq-Ptmby Xfer(QC): 4 Bed to/from Chair: 4 Patient improving with transfer training with CGA. Skilled verbal instruction for lowering self from stand to sit to improve strength. Gait Training Does the Patient Walk?: Yes Gait (FIM): 1 Distance (FIM): 1=up to 49 ft Distance: 30' x 4; 50' x 1 Gait Level of Assist: 4 Gait Persons Needed: 1 Gait Assistive Device: FWW Improved gait sequence with patient slowing emerald and improving foot clearance. Assessment Spouse present at this end of treatment with patient own w/c to have a day pass. PT to increase activity as tolerated by patient. PT Short Term Goals Short Term Goals Transfers (B,C,W/C) (FIM): 5 (not met) Gait (FIM): 1 Distance (FIM): 1=up to 49 ft Gait Distance Comment: 25' Gait Level of Assist: 3 Gait Assistive Device: FWW Wheelchair (FIM): 1 (achieved on 01/13/16) Wheelchair distance (FIM): 1=up to 49 ft Wheelchair Distance: 40' Wheelchair Level of Assist: 4 PT Disciplinary Hearing Officer Goals Mcc Goals Transfers (B,C,W/C) (FIM): 5 Rollin Gait (FIM): 1 Gait distance (FIM): 1=up to 49 ft Distance: 45' Gait Level of Assist: 4 Gait Assistive Device: FWW Stairs (FIM): 1 # of Steps: 4 Stairs Level Of Assist: 4 PT Plan Treatment/Plan Treatment Plan: Continue Plan of Care Treatment Plan: Bed Mobility, Education, Functional Activity Enrrique, Functional Strength, Group Therapy, Gait, Safety, Therapeutic Exercise, Transfers Visits Per Week: 10-11 Minutes/Day (M-F): 60-90 Minutes/Day (Sat/[place]): PRN Time/GCodes Time In: 1035 Time Out: 1105 Total Billed Treatment Time: 30 Total Billed Treatment 1 visit GT x 2 30 min TONG STROUD PT Feb 12, 2016 11:10
[2016-02-12] MEDS: ENOXAPARIN 40 MG/0.4 ML (LOVENOX) SYR SC SCH (18:26)
[2016-02-12 18:42] VITALS: BP 99/61
[2016-02-12] MEDS: APAP 325 MG/10.15 ML LIQ (TYLENOL) UDC JT PRN (21:07)
[2016-02-13] MEDS: RT-ALBUTEROL/IPRATROPIUM 3 ML (DUONEB) VIAL INH SCH ×4 (02:34→19:55)
[2016-02-13] MEDS: ONDANSETRON 4 MG/5 ML ORAL SOLN (ZOFRAN) 5 ML JT SCH ×4 (06:14→23:26)
[2016-02-13] MEDS: METOCLOPRAMIDE 10MG/10ML ORAL SOL(REGLAN) UDC PO SCH ×4 (06:14→21:55)
[2016-02-13 06:38] VITALS: BP 103/69
[2016-02-13] MEDS: LACTOBACILLUS Acidoph/Bulgar (LACTINEX/FLORANEX) TAB JT SCH ×4 (08:48→21:55)
[2016-02-13] MEDS: LORATADINE (CLARITIN) 10 MG TAB PO SCH (08:48)
[2016-02-13] MEDS: DIPHENOXYLATE/ATROPINE 2.5MG/0.025MG (LOMOTIL) TAB JT SCH ×2 (08:48→21:55)
[2016-02-13] MEDS: FAMOTIDINE 20 MG (PEPCID) TABLET JT SCH ×2 (08:49→21:55)
[2016-02-13] MEDS: MAGNESIUM OXIDE (MAG-OX)400 MG TAB JT SCH ×2 (08:49→19:30)
[2016-02-13] MEDS: guaiFENesin SYRUP 100 MG/5 ML 10 ML (ROBITUSSIN SF) JT SCH ×4 (08:49→21:55)
[2016-02-13] MEDS: BENEFIBER (FROM DIETARY) DOCUMENTATION PURPOSE ONLY PO SCH ×3 (08:56→21:55)
[2016-02-13] MEDS: ENOXAPARIN 40 MG/0.4 ML (LOVENOX) SYR SC SCH (19:44)
[2016-02-13] MEDS: CATHETER FLUSH 10 ML SYR IV PRN (22:09)
[2016-02-14] MEDS: RT-ALBUTEROL/IPRATROPIUM 3 ML (DUONEB) VIAL INH SCH ×4 (02:44→20:33)
[2016-02-14 04:17] VITALS: BP 107/68
[2016-02-14] MEDS: METOCLOPRAMIDE 10MG/10ML ORAL SOL(REGLAN) UDC PO SCH ×4 (05:21→21:36)
[2016-02-14] MEDS: ONDANSETRON 4 MG/5 ML ORAL SOLN (ZOFRAN) 5 ML JT SCH ×4 (05:21→23:45)
[2016-02-14] MEDS: DIPHENOXYLATE/ATROPINE 2.5MG/0.025MG (LOMOTIL) TAB JT SCH ×2 (08:57→21:36)
[2016-02-14] MEDS: FAMOTIDINE 20 MG (PEPCID) TABLET JT SCH ×2 (08:57→21:36)
[2016-02-14] MEDS: LORATADINE (CLARITIN) 10 MG TAB PO SCH (08:57)
[2016-02-14] MEDS: guaiFENesin SYRUP 100 MG/5 ML 10 ML (ROBITUSSIN SF) JT SCH ×4 (08:57→21:36)
[2016-02-14] MEDS: MAGNESIUM OXIDE (MAG-OX)400 MG TAB JT SCH ×2 (08:57→17:38)
[2016-02-14] MEDS: LACTOBACILLUS Acidoph/Bulgar (LACTINEX/FLORANEX) TAB JT SCH ×4 (08:57→21:36)
[2016-02-14] MEDS: BENEFIBER (FROM DIETARY) DOCUMENTATION PURPOSE ONLY PO SCH ×3 (08:58→21:36)
--- NOTE | 2016-02-14 09:42 | Occupational Ther Daily Note ---
OT Current Status-Daily Note Mental Status/Objective Functional [place] Measure 0=Not Assessed/NA 4=Minimal Assistance 1=Total Assistance 5=Supervision or Setup 2=Maximal Assistance 6=Modified [place] 3=Moderate Assistance 7=Complete [place] ADL-Treatment Functional [place] Measure 0=Not Assessed/NA 4=Minimal Assistance 1=Total Assistance 5=Supervision or Setup 2=Maximal Assistance 6=Modified [place] 3=Moderate Assistance 7=Complete IndependenceIRFPAI Quality Coding Scale 6 Independent with activity with or without an assistive device 5 Patient requires set up or clean up by helper. Patient completes activity by themselves 4 Supervision or touching assist (CGA). [place] provide cues , steadying assist 3 The helper provides less than half the effort to complete the activity 2 The helper provides more than half the effort to complete the activity 1 Dependent. The helper does all the effort to complete an activity 7 Patient refused to complete or attempt activity 9 The patient did not perform the activity before the current illness or injury 88 Not attempted due to Medical conditions or safety concerns Other Treatment Fabric Sourcer: R: 5, 5, 5# L 17, 12 10# R L Lateral 2 6 3 Jaw 2 4 Tip 2 2 OT Short Term Goals Short Term Goals Lower Body Dressing(FIM): 4 (met sometimes) Toileting(FIM): 4 (not met) Transfers (B,C,W/C) (FIM): 5 (not met) Toilet/Commode Transfer(FIM): 4 (met) Shower Transfer(FIM): 5 (not met) 1=Demonstrate adherence to instructed precautions during ADL tasks. 2=Patient will verbalize/demonstrate understanding of assistive devices/ modifications for ADL. 3=Patient will improve strength/tolerance for activity to enable patient to perform ADL's. OT Fci Goals Fci Goals Eating (FIM): 1 (Met 02/07/16) Grooming(FIM): 6 (Not met) Bathing(FIM): 6 (not met) Upper Body Dressing(FIM): 6 (not met) Lower Body Dressing(FIM): 5 (not met) Toileting(FIM): 5 (not met) Transfers (B,C,W/C) (FIM): 5 (not met) Toilet/Commode Transfer(FIM): 5 (not met) Shower Transfer(FIM): 5 (not met) Comprehension(FIM): 6 (MET) Expression (FIM): 5 (MET) Social Interaction(FIM): 5 (MET) Problem Solving(FIM): 5 (MET) Memory(FIM): 5 (MET) Continue with same LTGs Additional Goals: 2-Verbalize Understanding, 3-ImproveStrength/Enrrique 1=Demonstrate adherence to instructed precautions during ADL tasks. 2=Patient will verbalize/demonstrate understanding of assistive devices/ modifications for ADL. 3=Patient will improve strength/tolerance for activity to enable patient to perform ADL's. OT Education/Plan Problem List/Assessment Pt would benefit from skilled OT to increase her independence in basic self care to allow her to return home safely Treatment Plan/Plan of Care Patient would benefit from OT for education, treatment and training to promote independence in ADL's, mobility, safety and/or upper extremity function for ADL' s. Plan of Care: ADL Retraining, Caregiver Training, Functional Mobility, Orthotic Fitting/Training, UE Funct Exercise/Act, UE Neuromus Re-Ed/Coord Visits Per Week: 10-11 Minutes/Day (M-F): 75-90 Minutes/Day (Sat/[place]): prn Agreement: Yes Rehab Potential: Fair KELLY ATKINS OT Feb 14, 2016 09:42
--- NOTE | 2016-02-14 11:31 | Speech Therapy Daily Note ---
Speech Daily Progress Note Subjective The patient sitting upright in wheelchair upon entrance. The patient reported fatigue, however, agreed to participate in dysphagia therapy on this date. Objective Dysphagia Exercises: The patient completed two sets of ten repetitions of each exercise on this date. Direct modeling was provided by the patient prior to each exercise. The patient continues to demonstrate good accuracy throughout the session. Assessment Assessment Current Status: Fair Progress Treatment Plan Continue Plan of Care Communication Comprehension: 6 Expression: 6 Social Cognition Social Interaction: 6 Problem Solvin Memory: 5 Speech Short Term Goals Short Term Goals Short Term Goals 1. The patient will independently demonstrate laryngeal, pharyngeal, and base of tongue exercises. PROGRESSING Time Frame-STG: Two Weeks Speech Olive Grower Goals Olive Grower Goals 1. The patient will tolerate PO trials of the least restrictive consistency without signs/symptoms of aspiration or laryngeal penetration. INITIATED 2015 Time Frame: Eight Weeks Comprehension: 6 (MET) Expression: 5 (MET) Social Interaction: 5 (MET) Problem Solvin (MET) Memory: 5 (MET) Speech-Plan Treatment Plan Speech Therapy Treatment Plan: Continue Plan of Care Treatment Duration: Feb 16, 2016 # of days/week 5 Visits Per Week: 4 to 5 Minutes/Day (M-F): 30 Rehab Potential: Fair Safety Risks/Education Teaching Recipient: Patient Teaching Methods: Demonstration, Handout, Discussion Response to Teaching: Verbalize Understanding, Return Demonstration, Reinforcement Needed Education Topics Provided: Dysphagia Exercises Time Speech Therapy Time In: 09:30 Speech Therapy Time Out: 10:00 Total Billed Time: 30 Billed Treatment Time ASAEL Curran GILBERT VORA Feb 14, 2016 11:30
--- NOTE | 2016-02-14 12:47 | Physical Therapy Daily Note ---
PT Daily Note-Current Subjective Patient in bed pre tx, agrees to PT, is very anxious. Pain Numeric Pain Scale: 0-No Pain Appearance Patient BTB post tx with nurse call, phone, tray, in room, all needs met. Mental Status Patient Orientation: Normal For Age Transfers Functional [place] Measure 0=Not Assessed/NA 4=Minimal Assistance 1=Total Assistance 5=Supervision or Setup 2=Maximal Assistance 6=Modified [place] 3=Moderate Assistance 7=Complete IndependenceIRFPAI Quality Coding Scale 6 Independent with activity with or without an assistive device 5 Patient requires set up or clean up by helper. Patient completes activity by themselves 4 Supervision or touching assist (CGA). [place] provide cues , steadying assist 3 The helper provides less than half the effort to complete the activity 2 The helper provides more than half the effort to complete the activity 1 Dependent. The helper does all the effort to complete an activity 7 Patient refused to complete or attempt activity 9 The patient did not perform the activity before the current illness or injury 88 Not attempted due to Medical conditions or safety concerns Transfers (B, C, W/C) (FIM): 4 Scootin Rollin Roll Left to Right (QC): 4 Supine to/from Sit: 5 Sit to/from Stand: 4 Sit to Lying (QC): 4 Sit to Stand (QC): 4 Chair/Rlu-oq-Owfbx Xfer(QC): 4 Bed to/from Chair: 4 Car Transfer (QC): 88 CGA for transfers, she needs cues for safety and hand placement, bed mobility SBA Gait Training Does the Patient Walk?: Yes Gait (FIM): 1 Distance: 30'x4 Walk 10 feet (QC): 3 Walk 50 ft with 2 Turns(QC): 88 Walk 150 ft (QC): 88 Walking 10ft on uneven surface: 88 Gait Level of Assist: 4 Gait Persons Needed: 1 Gait Assistive Device: FWW Patient needs min assist for balance, even when using a rolling walker and especially when turning Wheelchair Training Does the Pt Use a Wheelchair?: Yes Wheelchair (FIM): 6 Distance: 150' Wheel 50 ft with 2 turns (QC): 6 Wheel 150 ft (QC): 6 Type of Wheelchair: Manual Patient does not need any assist with wheelchair mobility, uses all 4 extremities to propel. Patient can propel her wheelchair 50' with at least 2 turns of 90 degrees. Stair Training Stair Training: Handrails/: 2 handrails Stairs (FIM): 2 #of Steps: 4 1 Step (curb) (QC): 3 4 Steps (QC): 3 12 Steps (QC): 88 Stairs: Pattern: Step to Level of Assist: 4 Patient needs min assist for balance when performing stairs, cues for safety and step placement. Balance Picking up an Object (QC): 88 Exercises NuStep Minutes: 10 NuStep Workload: 3 Treatments functional strengthening, gait training, bed mobility and transfers, wheelchair mobility, patient was toileted once and had a BM Assessment Current Status: Fair Progress improved transfers and bed mobility PT Short Term Goals Short Term Goals Transfers (B,C,W/C) (FIM): 5 (not met) Gait (FIM): 1 Distance (FIM): 1=up to 49 ft Gait Distance Comment: 25' Gait Level of Assist: 3 Gait Assistive Device: FWW Wheelchair (FIM): 1 (achieved on 01/13/16) Wheelchair distance (FIM): 1=up to 49 ft Wheelchair Distance: 40' Wheelchair Level of Assist: 4 PT Application Development Liaison Goals Application Development Liaison Goals Transfers (B,C,W/C) (FIM): 5 Rollin Gait (FIM): 1 Gait distance (FIM): 1=up to 49 ft Distance: 45' Gait Level of Assist: 4 Gait Assistive Device: FWW Stairs (FIM): 1 # of Steps: 4 Stairs Level Of Assist: 4 PT Plan Problem List Problem List: Activity Tolerance, Functional Strength, Safety, Balance, Gait, Transfer, Bed Mobility, ROM Treatment/Plan Treatment Plan: Continue Plan of Care Treatment Plan: Bed Mobility, Education, Functional Activity Enrrique, Functional Strength, Group Therapy, Gait, Safety, Therapeutic Exercise, Transfers Visits Per Week: 10-11 Minutes/Day (M-F): 60-90 Minutes/Day (Sat/[place]): PRN Safety Risks/Education Patient Education: Gait Training, Transfer Techniques, Steps, Correct Positioning, W/C Management, Safety Issues Teaching Recipient: Patient Teaching Methods: Demonstration, Discussion Response to Teaching: Reinforcement Needed Time/GCodes Time In: 1100 Time Out: 1200 Total Billed Treatment Time: 60 Total Billed Treatment 1 visit GT 25 min EX 10 min FA 10 min [facility] 15 min JUAN SMITH PT Feb 14, 2016 12:47
--- NOTE | 2016-02-14 13:12 | Occupational Ther Daily Note ---
OT Current Status-Daily Note Subjective Pt lying in bed. Pt stated she had a wonderful weekend with family. No pain mentioned. Agreeable to OT. Appearance Alert, cooperative Mental Status/Objective Patient Orientation: Person, Place, Time, Situation Functional [place] Measure 0=Not Assessed/NA 4=Minimal Assistance 1=Total Assistance 5=Supervision or Setup 2=Maximal Assistance 6=Modified [place] 3=Moderate Assistance 7=Complete [place] ADL-Treatment Pt scooted to EOB using bed side rails. FWW to transfer from EOB to [facility], Min A. Pt pulled down brief (pt not wearing any pants), Min A, FWW. Self managed front/ perineal care. FWW to transfer from [facility] to /, Min A. Pt propelled self to bathroom. While seated in /c pt doffed socks, blouse, Min A. Pt transferred from / to shower bench using grab bars, Min A. Pt washed UB/LB, using hand held shower and grab bars, except back OT assisted. Leaned side to side to wash bottom. Pt transferred from shower bench to / using grab bars, Min A. Propelled self back to room. Pt able to put both legs through brief, pants to don, pt stood min assist to pull brief, pant to waist, FWW. Assistance needed to pull blouse over head and pull socks over heel, Min A. Pt propelled self bathroom to brush teeth, hair, Mod I. Functional [place] Measure 0=Not Assessed/NA 4=Minimal Assistance 1=Total Assistance 5=Supervision or Setup 2=Maximal Assistance 6=Modified [place] 3=Moderate Assistance 7=Complete IndependenceIRFPAI Quality Coding Scale 6 Independent with activity with or without an assistive device 5 Patient requires set up or clean up by helper. Patient completes activity by themselves 4 Supervision or touching assist (CGA). [place] provide cues , steadying assist 3 The helper provides less than half the effort to complete the activity 2 The helper provides more than half the effort to complete the activity 1 Dependent. The helper does all the effort to complete an activity 7 Patient refused to complete or attempt activity 9 The patient did not perform the activity before the current illness or injury 88 Not attempted due to Medical conditions or safety concerns Eating (FIM): 1 Eating (QC): 88 Grooming (FIM): 6 Oral Hygiene (QC): 6 Toileting Hygiene (QC): 3 Bathing (FIM): 5 (supervision) Upper Body (FIM): 4 (min) Upper Body Dressing (QC): 3 Lower Body Dressing (FIM): 4 Lower Body Dressing (QC): 3 On/Off Footwear (QC): 3 Toileting (FIM): 4 (min assist for balancing while getting pants up and down) Transfers (B, C, W/C) (FIM): 4 Toilet/Commode Transfer (FIM): 4 Toilet Transfer (QC): 3 Shower Transfer(FIM): 4 Shower/Bathe Self (QC): 4 (supervision) Other Treatment Pt propelled herself to the gym via w/c. Tested field recruiter and pinch strengths: Turret Lathe Operator: R: 5, 5, 5# L 17, 12 10# R L Lateral 2 6 3 Jaw 2 4 Tip 2 2 From her initial assessment in November, her field recruiter strength on the left is about the same but it has increased on the right and she is using her R hand more during functional activities. Pinch has also increased, as well as coordination (Box and Blocks and Nine Hole Peg test) Education OT Patient Education: Progress toward Goal/Update tx plan Teaching Recipient: Patient Teaching Methods: Discussion Response to Teaching: Verbalize Understanding, Return Demonstration OT Short Term Goals Short Term Goals Lower Body Dressing(FIM): 4 (met sometimes) Toileting(FIM): 4 (not met) Transfers (B,C,W/C) (FIM): 5 (not met) Toilet/Commode Transfer(FIM): 4 (met) Shower Transfer(FIM): 5 (not met) 1=Demonstrate adherence to instructed precautions during ADL tasks. 2=Patient will verbalize/demonstrate understanding of assistive devices/ modifications for ADL. 3=Patient will improve strength/tolerance for activity to enable patient to perform ADL's. OT Skilled Nursing Goals Skilled Nursing Goals Eating (FIM): 1 (Met 02/07/16) Grooming(FIM): 6 (Not met) Bathing(FIM): 6 (not met) Upper Body Dressing(FIM): 6 (not met) Lower Body Dressing(FIM): 5 (not met) Toileting(FIM): 5 (not met) Transfers (B,C,W/C) (FIM): 5 (not met) Toilet/Commode Transfer(FIM): 5 (not met) Shower Transfer(FIM): 5 (not met) Comprehension(FIM): 6 (MET) Expression (FIM): 5 (MET) Social Interaction(FIM): 5 (MET) Problem Solving(FIM): 5 (MET) Memory(FIM): 5 (MET) Continue with same LTGs Additional Goals: 2-Verbalize Understanding, 3-ImproveStrength/Enrrique 1=Demonstrate adherence to instructed precautions during ADL tasks. 2=Patient will verbalize/demonstrate understanding of assistive devices/ modifications for ADL. 3=Patient will improve strength/tolerance for activity to enable patient to perform ADL's. OT Education/Plan Problem List/Assessment Pt would benefit from skilled OT to increase her independence in basic self care to allow her to return home safely Discharge Recommendations Plan/Recommendations: Continue POC (anticipate DC tomorrow) Treatment Plan/Plan of Care Patient would benefit from OT for education, treatment and training to promote independence in ADL's, mobility, safety and/or upper extremity function for ADL' s. Plan of Care: ADL Retraining, Caregiver Training, Functional Mobility, Orthotic Fitting/Training, UE Funct Exercise/Act, UE Neuromus Re-Ed/Coord Visits Per Week: 10-11 Minutes/Day (M-F): 75-90 Minutes/Day (Sat/[place]): prn Agreement: Yes Rehab Potential: Fair Time/GCodes Start Time: 08:30 Stop Time: 09:30 Total Time Billed (hr/min): 60 Billed Treatment Time visit, ADL 45 min, neuromotor 15 min KELLY ATKINS OT Feb 14, 2016 13:12
[2016-02-14] MEDS ORDERED: SIMETHICONE 80 MG (MYLICON) CHEW PEG PRN (13:45)
--- NOTE | 2016-02-14 14:24 | Therapy Group Daily Note ---
Therapy Daily Group Note Patient Education Topic Home Safety Exercises LE Seated Exercise, UE Exercise Other/Notes Pt was an active participant in OT/PT group. She socialized by introducing herself and sharing family New Year's traditions. She contributed to group education/discussion on home safety and de-cluttering. She also led the group in one exercise and did seated UE and LE exercises taught by others in the group. She walked CGA, FWW to and from group and, after toileting, was left up in bed, family present, all needs met. Start Time: 13:00 Stop Time: 14:10 Total Billed Treatment Time: 70 Total Billed Treatment visit, 70 minutes group KELLY ATKINS OT Feb 14, 2016 14:24
[2016-02-14] MEDS: ENOXAPARIN 40 MG/0.4 ML (LOVENOX) SYR SC SCH (17:39)
[2016-02-14 18:45] VITALS: BP 107/73
[2016-02-14] MEDS: APAP 325 MG/10.15 ML LIQ (TYLENOL) UDC JT PRN (21:41)
[2016-02-15] MEDS: RT-ALBUTEROL/IPRATROPIUM 3 ML (DUONEB) VIAL INH SCH ×2 (02:31→09:56)
[2016-02-15 05:43] VITALS: BP 97/66
[2016-02-15] MEDS: METOCLOPRAMIDE 10MG/10ML ORAL SOL(REGLAN) UDC PO SCH (06:04)
[2016-02-15] MEDS: ONDANSETRON 4 MG/5 ML ORAL SOLN (ZOFRAN) 5 ML JT SCH (06:04)
[2016-02-15] MEDS: FAMOTIDINE 20 MG (PEPCID) TABLET JT SCH (09:40)
[2016-02-15] MEDS: MAGNESIUM OXIDE (MAG-OX)400 MG TAB JT SCH (09:40)
[2016-02-15] MEDS: guaiFENesin SYRUP 100 MG/5 ML 10 ML (ROBITUSSIN SF) JT SCH (09:40)
[2016-02-15] MEDS: LORATADINE (CLARITIN) 10 MG TAB PO SCH (09:40)
[2016-02-15] MEDS: BENEFIBER (FROM DIETARY) DOCUMENTATION PURPOSE ONLY PO SCH (09:40)
[2016-02-15] MEDS: LACTOBACILLUS Acidoph/Bulgar (LACTINEX/FLORANEX) TAB JT SCH (09:40)
[2016-02-15] MEDS: DIPHENOXYLATE/ATROPINE 2.5MG/0.025MG (LOMOTIL) TAB JT SCH (09:40)
--- NOTE | 2016-02-15 10:24 | Therapy Team Discharge Summary ---
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 Upon admission, the patient was NPO and receiving total nutrition, hydration, and medication via PEG tube. The patient participated in a video swallow at this facility which demonstrated aspiration of all consistencies (thin, nectar, honey , and puree). Skilled speech therapy focused on base of tongue, laryngeal, and pharyngeal strengthening exercises. The patient met speech pathology goals which included independence with dysphagia exercises. At discharge, the patient remains NPO. The patient would benefit from initial dysphagia evaluation from home health speech pathologist. The patient will be discharged from inpatient speech services at this time. PT Station Gateman Goals Fdc Goals Transfers (B,C,W/C) (FIM): 5 Gait (FIM): 1 Gait distance (FIM): 1=up to 49 ft Distance: 45' Gait Level of Assist: 4 Gait Assistive Device: FWW Stairs (FIM): 1 # of Steps: 4 Stairs Level Of Assist: 4 OT Station Gateman Goals Fdc Goals Eating (FIM): 1 (Met 02/07/16) Grooming(FIM): 6 (Not met) Bathing(FIM): 6 (not met) Upper Body Dressing(FIM): 6 (not met) Lower Body Dressing(FIM): 5 (not met) Toileting(FIM): 5 (not met) Transfers (B,C,W/C) (FIM): 5 (not met) Toilet/Commode Transfer(FIM): 5 (not met) Shower Transfer(FIM): 5 (not met) Comprehension(FIM): 6 (MET) Expression (FIM): 5 (MET) Social Interaction(FIM): 5 (MET) Problem Solving(FIM): 5 (MET) Memory(FIM): 5 (MET) Continue with same LTGs Additional Goals: 2-Verbalize Understanding, 3-ImproveStrength/Enrrique 1=Demonstrate adherence to instructed precautions during ADL tasks. 2=Patient will verbalize/demonstrate understanding of assistive devices/ modifications for ADL. 3=Patient will improve strength/tolerance for activity to enable patient to perform ADL's. Speech Fdc Goals Station Gateman Goals 1. The patient will tolerate PO trials of the least restrictive consistency without signs/symptoms of aspiration or laryngeal penetration. INITIATED 2015 Time Frame: Eight Weeks Comprehension: 6 (MET) Expression: 5 (MET) Social Interaction: 5 (MET) Problem Solvin (MET) Memory: 5 (MET) GILBERT VORA Feb 15, 2016 10:24
[2016-02-15 11:00] VITALS: BP 97/66
--- NOTE | 2016-02-15 14:09 | Therapy Team Discharge Summary ---
Therapy Discharge Summary Discharge Recommendations Date of Discharge Feb 15, 2016 at 11:10 Therapy D/C Recommendations: Home w/ Family Support, Occupational Therapy Home Care Occupational Therapy Pt was not discharged from ARU on as planned so this is an updated discharge summary Pt was seen for skilled OT to increase her independence in basic self care to allow her to return to her home with family support after surgery for brain tumor, trach, PEG and long hospitalization. She was on ARU previously but transferred to swing bed for about 2 weeks for whole brain radiation. On readmission she was dependant for feeding (NPO, with tube feeding ) and toileting (required 2 people), mod assist toilet transfer, min assist upper and lower body dressing (gowns and Depends) and transfers, SBA bathing and grooming. By discharge she was still dependant with eating, needed min assist for dressing (for pullover shirts, slacks, socks and shoes), min assist toileting (only one person needed), min assist bathing (can stand to get bottom washed), transfer to toilet and shower bench and setup grooming. She increased the functional strength and use of her R arm. Equipment used included FWW, BSC, transfer tub bench, grab bars, hand held shower. Family has been educated in assisting her with her ADLs and home health OT is recommended. See tx plan for goals met. DC OT. PT Financial Investment Manager Goals Financial Investment Manager Goals Transfers (B,C,W/C) (FIM): 5 Gait (FIM): 1 Gait distance (FIM): 1=up to 49 ft Distance: 45' Gait Level of Assist: 4 Gait Assistive Device: FWW Stairs (FIM): 1 # of Steps: 4 Stairs Level Of Assist: 4 OT Financial Investment Manager Goals Financial Investment Manager Goals Eating (FIM): 1 (Met 02/07/16) Grooming(FIM): 6 (Met) Bathing(FIM): 6 (not met) Upper Body Dressing(FIM): 6 (not met) Lower Body Dressing(FIM): 5 (not met) Toileting(FIM): 5 (not met) Transfers (B,C,W/C) (FIM): 5 (not met) Toilet/Commode Transfer(FIM): 5 (not met) Shower Transfer(FIM): 5 (not met) Comprehension(FIM): 6 (MET) Expression (FIM): 5 (MET) Social Interaction(FIM): 5 (MET) Problem Solving(FIM): 5 (MET) Memory(FIM): 5 (MET) Continue with same LTGs Additional Goals: 2-Verbalize Understanding, 3-ImproveStrength/Enrrique 1=Demonstrate adherence to instructed precautions during ADL tasks. 2=Patient will verbalize/demonstrate understanding of assistive devices/ modifications for ADL. 3=Patient will improve strength/tolerance for activity to enable patient to perform ADL's. Speech Financial Investment Manager Goals Usp Goals 1. The patient will tolerate PO trials of the least restrictive consistency without signs/symptoms of aspiration or laryngeal penetration. INITIATED 2015 Time Frame: Eight Weeks Comprehension: 6 (MET) Expression: 5 (MET) Social Interaction: 5 (MET) Problem Solvin (MET) Memory: 5 (MET) KELLY ATKINS OT Feb 15, 2016 14:09
--- NOTE | 2016-02-15 15:29 | Therapy Team Discharge Summary ---
Therapy Discharge Summary Discharge Recommendations Date of Discharge Feb 15, 2016 at 11:10 Therapy D/C Recommendations: Home w/ Family Support, Occupational Therapy Home Care Physical Therapy Patient came to rehab for brain mets, neuropathy of critical illness. Upon evaluation patient patient performed bed mobility and transfers with moderate assist, ambulated 10' with max assist and patient holding onto therapists arms for weight shift assist, and she can propel a wheelchair 10' with max assist. Patient has been performing bed mobility and transfer training, balance and endurance training, functional strengthening, stair training, gait training, and education. Patient has made fair progress but has only met her terminologist goals for stairs. Now, patient performs bed mobility with SBA/min assist, transfers with min assist, can ambulate 30' with a rolling walker with min assist, and can go up and down 4 steps using 2 handrails with min assist. Patient was discharged from this facility today and will be discharged from PT at this time. PT Group Home Goals Group Home Goals Transfers (B,C,W/C) (FIM): 5 Gait (FIM): 1 Gait distance (FIM): 1=up to 49 ft Distance: 45' Gait Level of Assist: 4 Gait Assistive Device: FWW Stairs (FIM): 1 # of Steps: 4 Stairs Level Of Assist: 4 OT Group Home Goals Group Home Goals Eating (FIM): 1 (Met 02/07/16) Grooming(FIM): 6 (Met) Bathing(FIM): 6 (not met) Upper Body Dressing(FIM): 6 (not met) Lower Body Dressing(FIM): 5 (not met) Toileting(FIM): 5 (not met) Transfers (B,C,W/C) (FIM): 5 (not met) Toilet/Commode Transfer(FIM): 5 (not met) Shower Transfer(FIM): 5 (not met) Comprehension(FIM): 6 (MET) Expression (FIM): 5 (MET) Social Interaction(FIM): 5 (MET) Problem Solving(FIM): 5 (MET) Memory(FIM): 5 (MET) Continue with same LTGs Additional Goals: 2-Verbalize Understanding, 3-ImproveStrength/Enrrique 1=Demonstrate adherence to instructed precautions during ADL tasks. 2=Patient will verbalize/demonstrate understanding of assistive devices/ modifications for ADL. 3=Patient will improve strength/tolerance for activity to enable patient to perform ADL's. Speech Group Home Goals Head Cager Goals 1. The patient will tolerate PO trials of the least restrictive consistency without signs/symptoms of aspiration or laryngeal penetration. INITIATED 2015 Time Frame: Eight Weeks Comprehension: 6 (MET) Expression: 5 (MET) Social Interaction: 5 (MET) Problem Solvin (MET) Memory: 5 (MET) JUAN SMITH PT Feb 15, 2016 15:29
--- NOTE | 2016-02-15 17:15 | PM & R (SOAP) Progress Note ---
Subjective Subjective/Events-last exam Patient discharged to home today with family.Case discussed with RN Objective Exam Last Set of Vital Signs Vital Signs Date Time Temp Pulse Resp B/P Pulse Ox O2 Delivery O2 Flow Rate FiO2 02/15/16 11:00 96 18 97/66 96 8.00 02/15/16 10:07 Room Air 02/15/16 05:43 97.6 02/10/16 16:06 94 Capillary Refill : I&O Intake and Output 02/15/16 00:00 Intake Total 1790 ml Balance 1790 ml Tube Feeding 1240 ml Other 550 ml # Voids 7 # Bowel Movements 3 General: Alert, Oriented X3, Cooperative, No Acute Distress HEENT: Atraumatic, PERRLA, EOMI, Mucous Memb Moist/[place] Neck: Other (Trach functioning) Lungs: Clear to Auscultation Heart: Regular Rate Abdomen: Normal Bowel Sounds, Soft, No Tenderness, Other (feeding tube in place ) Extremities: No Edema Neuro: Other (generalized weakness) Results Lab Microbiology 01/25/16 Blood Culture - Final, Complete No growth 01/27/16 C. difficile GDH Antigen & Toxins - Final, Complete 01/25/16 Gram Stain - Final, Complete 01/25/16 Sputum Culture - Final, Complete Pseudomonas Aeruginosa 01/26/16 Urine Culture - Final, Complete Enterococcus Faecium Pseudomonas Aeruginosa Assessment/Plan Assessment S/P crani and removal Met lesion from breast ca Dysphagia NPO on tube feeds by J Tube now on bulus during day and continuous at HS S/P trach on trach collar at night and with PMV during day-now with o2 by trach collar to maintain sats S/P Radiation Therapy course while on Swing bed anemia s/p transfusion 2 unis PRBCS intermittent nausea felt to be ralated to meds-Zofran scheduled-rresolved for most part with J Tube cleared Diarrhea multifactorial Lomotil and Benefiber on Vtoqf-caweggpup-Arqnd for cdif negative Recuurent pneumonia due to Vocal cord paralysis and secretions to complete course of IV antibiotics-doing better Plan Discharge today to home with family and HHC F/U with DR Bardales and Stew See orders UZMA VILLALOBOS MD Feb 15, 2016 17:15
--- NOTE | 2016-03-01 09:49 | DISCHARGE SUMMARY ---
DATE OF ADMISSION: 01/04/2016 DATE OF DISCHARGE: 02/15/2016 HISTORY OF PRESENT ILLNESS: The patient is a 50-year-old female who had recent resection metastatic lesion from breast involving the posterior fossa of the brain at [facility]. She was subsequently discharged to [facility] and then the patient was referred to Inpatient Rehabilitation Unit in early of December. The patient was subsequently seen by Dr. Chin radiation therapy Dr. Bardales, medical oncology as well as Dr. Mathias, PCP. It was decided upon a course of radiation therapy and the patient was transferred to [facility] bed on December 21, 2015 for ongoing treatment for that. She was then referred back to Inpatient Rehabilitation Unit on 01/03 for completion of her rehabilitation program. SOCIAL HISTORY: She lives in [place], [place] with her spouse and has a very supportive family. PAST MEDICAL HISTORY: 1. She is n.p.o. because of vocal cord paralysis and risk for aspiration and is on tube feeds. 2. She has a history of pneumonia. 3. Breast cancer, status post mastectomy. 4. Resection of posterior fossa brain tumor 10/14/2015 [facility] status post PEG status post trach. 5. She has a Passy-Connor valve for communication during the day. MEDICAL COURSE: The patient was followed by Dr. Dee and Dr. Mathias, Dr. Staples and Dr. Bardales during her rehabilitation stay. She had swallow assessment with speech therapy, garcia aspiration was noted. She was continued n.p.o. and on tube feeds. She had issues with diarrhea or loose stools, recurrent aspiration pneumonia. The patient was placed on bolus tube feeds provided with Imodium p.r.n. Loose stools, diarrhea, improved, bowel incontinence, improved. She had a course of IV antibiotics for treatment of her pneumonia, under the direction of Dr. Staples and Dr. Bardales and chest x-ray showed improvement of left basal infiltrate on 02/10. The patient had improvement in nausea as well. She was afebrile during her stay. Blood pressure on 02/14 was 97/66, respirations 18, pulse 96, O2 saturation 96% on room air. UA was negative on 01/25. Blood cultures on 01/24 x2 were negative. Urine culture on 01/25 showed mixed enterococcus and pseudomonas aeruginosa be covered by the antibiotics for treatment of her pneumonia. Stool for C. diff was negative. Chemistry on 02/10 showed hypokalemia, improving from 2.9 on 02/08 to 3.3 on 02/10 with supplement. Serum calcium was low 8.1 on 02/08, improved with supplement 8.9, Normalized on 02/10. Serum albumin improved from 2.9 on 02/08 to 3.4 on 02/10. CBC on 02/08 revealed WBC 7.4, hemoglobin and hematocrit 9.7/31, platelet count 171,000. The patient did have transfusion of packed red blood cells on 01/11 and tolerated that well. Hemoglobin improved from 8 to 10.4 on 01/15. The patient's J-tube is partially obstructed, consideration of replacement of this was done but it was able to be opened up fully; after about her that her nausea largely resolved. REHABILITATION COURSE: The patient remained n.p.o. and on tube feeds. Speech therapy notes upon admission, the patient was n.p.o. and receiving and nutrition, hydration, medication via PEG. The patient participated in a video swallow at this facility which demonstrated aspiration of all consistencies. Speech therapy focused on base of tongue laryngeal pharyngeal strengthening exercises. The patient met speech pathology. Speech/pathology goals with patient were independence with dysphagia exercises, but at discharge the patient remained n.p.o. It was recommended that she have follow-up at a later time to see if her dysphagia improved. Cognition and speech were functional. OT notes upon admission, she was dependent for feeding and toileting requiring 2 people. She was mod assist for toilet transfers. Min assist for upper and lower body dressing, and transfers. Standby assist for bathing and grooming. By discharge she was still dependent with eating, but needed min assist for dressing. Min assist for toileting. Min assist for bathing, and transfers, and toilet and shower bench and set up for grooming. She increased her functional strength and use of her right arm. Equipment used included front wheel walker, bedside commode, tub, transfer bench, grab bars, and stand out shower. The family has been educated in assisting her with her ADLs and OT is not recommended at this time. PT notes upon admission, the patient performed bed mobility, and transfers with mod assist, could ambulate 10 feet with max assist with the patient holding on to therapist's arms for weight shift assist. She could propel a wheelchair 10 feet with max assist. Upon discharge her bed mobility with standby assist with min assist. Transfers to min assist and could ambulate 30 feet with a wheeled walker with min assist and go up and down 4 steps using two handrails with assist. The patient had multiple day passes over the holidays and did well with those. DISCHARGE INSTRUCTIONS: The patient will have follow-up with Dr. Mathias and Dr. Bardales as per their schedule. The patient remains n.p.o. and on bolus tube feeds during the day and continuous at night. She will have home health care through [facility]. DISCHARGE MEDICATIONS: 1. Diphenhydramine 25 mg per PEG q.6 hours p.r.n. itch rash. 2. Reglan 5 mg per J-tube q.i.d. 3. Zofran 4 mg per J-tube q.6 hours. 4. OxyIR 5 mg per J-tube q.4 hours p.r.n. pain. 5. Tylenol 500 mg per J-tube q.4 hours p.r.n. mild pain. 6. Acetylcysteine 15 inhalations q.6 hours. 7. Xanax 0.25 mg per J-tube b.i.d. p.r.n. anxiety. 8. Citalopram 20 mg per J-tube daily. 9. Dexamethasone 2 mg per J-tube b.i.d. 10. Lomotil 1 tablet per J-tube b.i.d. 11. Lovenox 40 mg subcutaneous daily. 12. Pepcid 20 mg per J-tube b.i.d. 13. Guaifenesin 200 mg per J-tube q.i.d. 14. DuoNeb treatments 3 mL q.6 hours p.r.n. shortness of breath and b.i.d. 15. Floranex tablet per J-tube q.i.d. 16. Mag-Ox 400 mg per J-tube b.i.d. DISCHARGE DIAGNOSES: 1. Rehabilitation ambulatory dysfunction status post craniotomy and resection metastatic lesion involving the posterior fossa of the brain from breast, improving. 2. Right breast cancer. 3. Vocal cords paralysis with resulting dysphagia on tube feeds and n.p.o. 4. Reactive anxiety, controlled with medication. 5. Oral thrush, treated. 6. Loose stools, treated. 7. Tracheostomy status. 8. Status post mastectomy. 9. Status post J-tube partial occlusion, resolved. 10. Nausea related to above, improved. 11. Pneumonia due to Pseudomonas. 12. Aspiration pneumonia, treated. 13. Anemia, improved, status post transfusion. 14. ER Plus. 15. Under weight. 16. BMI 22.4. CONDITION AT DISCHARGE: Improved and stable. PROGNOSIS: Rehab prognosis appears good for some continued improvement in terms of physical mobility, however, with regard to dysphagia and vocal cord paralysis appears somewhat guarded at this time. Job ID: [id number] Dictated Date: 02/29/2016 10:50:00 Guide Delegate Date: 02/29/2016 14:11:57/eloina OVIEDO
== END 2016-02-15 11:10 | disposition home health service (06) | DRG 949 ==
PROVIDERS: ADMIT Physical Medicine & Rehabilitation; ATTEND Physical Medicine & Rehabilitation
DX: Z48.3 Aftercare following surgery for neoplasm (principal); C79.31 Secondary malignant neoplasm of brain; R13.10 Dysphagia, unspecified; F41.1 Generalized anxiety disorder; B37.0 Candidal stomatitis; R19.7 Diarrhea, unspecified; Z93.0 Tracheostomy status; Z90.10 Acquired absence of unspecified breast and nipple; C50.911 Malignant neoplasm of unspecified site of right female breast; J38.00 Paralysis of vocal cords and larynx, unspecified; Z93.1 Gastrostomy status; J15.1 Pneumonia due to Pseudomonas; J69.0 Pneumonitis due to inhalation of food and vomit; D64.9 Anemia, unspecified; Z17.0 Estrogen receptor positive status [ER+]; K94.13 Enterostomy malfunction; R63.6 Underweight; Z68.22 Body mass index [BMI] 22.0-22.9, adult
CPT/HCPCS: 36415; 71010; 71020; 77336; 77412; 80048; 80053; 80170; 81000; 82150; 82607; 82728; 82746; 82962; 83540; 83690; 83735; 85025; 85027; 86850; 86900; 86901; 86920; 87040; 87070; 87077; 87088; 87186; 87205; 87324; 94640; 94664; 94760; 94799

== ENCOUNTER → 2016-03-09 | Outpatient (CLI) | payer BC ==
[~2016-03-09] MED LIST changes: +ACET325T49 JT; +ACET650S15 PR; +AMYLASE PO; +BARIUM SUSPENSION 2.1% (VANILLA SILQ) 450 ML PO ONE; +BISA10SU12 PR; +CATHETER FLUSH 10 ML SYR IV PRN; +DIPH25TA27 PO; +IOHEXOL 350 MG/ML 100 ML (OMNIPAQUE 350) VIAL IV ONE; +LIPASE PO; +LORA2ORA PEG; +METO5SOL18 PO; +MORP100S3 PEG; +ONDA4SOL2 JT; +PROTEASE PO; +ZINC28PA TOP
--- OUTSIDE RECORDS SUMMARY | 2016-03-09 12:21 | XMS REPORT | Continuity of Care Document ---
Author Author [facility] Organization [facility] Address Unknown Phone Unavailable Care Team Providers Care Ware Tester Name Role Phone Ewa Mathias PCP [phone] Source Comments Some departments are not documenting in the electronic medical record. If you do not see the information that you expected, contact Release of Information in the Health Information Management department at [phone] for further assistance in locating additional records.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 Alexander is a female who presented to the [facility] on 08/17/2014 at age 49 for evaluation of right breast cancer. Ms. Alexander first felt a right breast lump in March 2014. Right breast sono-guided biopsy 04/29/14 ([place], [place]) revealed, grade 3, HER2 positive invasive ductal carcinoma. PET scan 05/12/14 ([place], [place]) revealed a 2.5 cm hypermetabolic mass in the lateral right breast. There was a 1 cm axillary lymph node and several subcentimeter axillary lymph nodes with increased uptake deep to the pectoralis muscle. There was a 1 cm lymph node with mild hypermetabolism in the prevascular station in the anterior superior mediastinum. No other areas of abnormality. Ms. Alexander underwent right skin sparing mastectomy/SLNB/TE on 11/05/14. She finished radiation in [place], [place] in February 2015. She started Examestane in February 2015. PATHOLOGY: Tumor: 2.4 cm tumor bed with no residual tumor Margins Free From Tumor: No ER: positive HI: negative Her 2: positive Grade: 3 Lymph Nodes: 0/2 LVSI: no Extranodal extension: no BREAST IMAGING: Mammogram: -- Right diagnostic mammogram 04/23/14 ([place], [place]) revealed distortion of the breast tissue in the upper outer quadrant with several areas of abnormal calcifications. -- Right diagnostic mammogram 08/17/14 () revealed a clip at 9:30 with surrounding pleomorphic calcifications. The calcifications panned 7 cm and extended to approximately 1 cm FTN. Ultrasound: -- Right breast ultrasound 04/23/14 ([place], [place]) revealed 2.3 cm hypoechoic mass corresponding [...] axillary adenopathy. MEDICAL ONCOLOGY: Dr. Esme Mathias ([place], [place]) PRESENT THERAPY: Neoadjuvant AC x 4 finished 07/16/14, followed by taxotere/perjeta/herceptin finished 10/08/14; started Exemestane in February 2015 REFERRED BY: Self Social History Tobacco Use Types Packs/Day Years [...] Colorectal Cancer 2014 Screening Influenza Vaccine 10/14/2015 Results from Last 3 Months Not on file
--- NOTE | 2016-03-09 14:01 | Diagnostic Imaging Report ---
PROCEDURE: CT chest, abdomen, and pelvis with contrast. TECHNIQUE: Multiple contiguous axial images were obtained through the chest, abdomen, and pelvis after the administration of intravenous contrast. INDICATION: Breast carcinoma. FINDINGS: The previous CT chest, abdomen, and pelvis exam of 12/13/2015 noted peribronchial thickening with multifocal ill-defined airspace nodules, some with tree-in-bud distribution. This finding was felt to be most likely due to an infectious process or aspiration. On this study, the right lung base does seem better aerated, and I suspect that the changes seen on the prior study were related to mild pneumonia/atelectasis. However, the interstitial densities in both lung bases do seem somewhat more prominent than on the prior exam, and there is a very small patchy area of increased density in the left lung base. This small area of increased density may be secondary to mild acute pneumonia as well. The severe chronic changes involving the lung apices seen previously are again evident and no different. There is no sign of a pleural effusion, and there is no parenchymal lung mass to suggest metastatic disease. The heart size remains within normal limits. There is no defect within the pulmonary arteries to indicate a pulmonary embolus. The aorta is not abnormally dilated, and there is no sign of a dissection. There is no mediastinal or hilar adenopathy noted. The thyroid gland is stable in appearance when compared to the prior study. As noted on the prior exam, there is a tracheostomy tube in place. The tube seems to be in good position. The breast marker shipments on the right noted previously is again visualized and no different. There is no obvious left breast mass. The previous exam failed to show any abnormality of the abdomen or pelvis. There was no evidence for metastatic disease either. On this study, the liver remains homogeneous. There is no defect to suggest metastatic disease. The spleen, pancreas, adrenals, gallbladder, kidneys, aorta, and inferior vena cava are unremarkable for an acute abnormality. The gastrostomy tube within the stomach seen previously remains in good position. There is no pelvic mass or free fluid collection evident. The uterus and urinary bladder are grossly unremarkable. The appendix was visualized and is not abnormally thickened. The bone windows show no evidence for a fracture or for a destructive lesion. The sclerotic focus in the right humeral head seen previously is again evident. Most likely, this is a benign process such as an enchondroma or bone infarct. IMPRESSION: 1. There are mixed results in the appearance of the chest. The right lung base does seem better aerated than on the prior exam, but there is now generalized prominence of the interstitial densities in each lower lobe and a small focus of increased density has developed in the left lung base. This is suspicious for mild pneumonia/atelectasis. 2. The overall appearance of the chest is otherwise stable. The severe chronic changes involving the lung apices have not progressed. 3. The abdomen and pelvis are stable when compared to the prior exam. There is no sign of an acute abnormality or of metastatic disease. Dictated by: Dictated on workstation # [id number]
== END ==
LOC: RAD 12:17
PROVIDERS: ATTEND Internal Medicine Hematology & Oncology
DX: C50.411 Malignant neoplasm of upper-outer quadrant of right female breast (principal)
CPT/HCPCS: 71260; 74177

== ENCOUNTER 2016-03-17 10:47 | Outpatient (RCR) | payer BC ==
--- OUTSIDE RECORDS SUMMARY | 2015-12-22 14:05 | XMS REPORT | Continuity of Care Document ---
Author Author [facility] Organization [facility] Address Unknown Phone Unavailable Care Team Providers Care [facility] Cleaning Specialist Name Role Phone Ewa Mathias PCP [phone] Source Comments Some departments are not documenting in the electronic medical record. If you do not see the information that you expected, contact Release of Information in the Health Information Management department at [phone] for further assistance in locating additional records.[facility] Active Allergies and Adverse Reactions Allergen Noted Date Severity Reactions Comments Sulfa (Sulfonamide 10/06/2014 Low ITCHING Antibiotics) Current Medications Prescription Sig. Disp. Refills Start End Date Status Date acetaminophen (TYLENOL) Take 20.3 mL by mouth 240 mL 0 11/11/19 Active 160 mg/5 mL oral solution every 8 hours as needed. 16 Max of 4,000 mg of acetaminophen in 24 hours. oxyCODONE (ROXICODONE) 1 5-10 mL every 4 hours as 0 11/11/19 Active mg/mL oral solution needed for Pain 16 diazePAM (VALIUM) 5 mg/5 Take 2.5 mL by mouth 0 11/11/19 Active mL (1 mg/mL) soln oral every 8 hours as needed. 16 solution ondansetron (ZOFRAN) 4 Administer 2-4 mL through 11/11/19 Active mg/2 mL soln vein every 6 hours as 16 needed. heparin (porcine) PF Inject 0.5 mL under the 11/11/19 Active 5,000units/0.5mL skin every 8 hours. DC 16 injection syringe when ambulating milk of magnesia (CONC) 10 mL by Per NG tube 11/11/19 Active 2,400 mg/10 mL oral route daily. 16 suspension senna (SENOKOT) 8.8 mg/5 5 mL twice daily. 0 11/11/19 Active mL oral syrup 16 melatonin 3 mg tab 1 Tab by Per NG tube 11/11/19 Active route at bedtime daily. 16 pantoprazole(#) Take 20 mL via feeding 11/11/19 Active (PROTONIX) 2 mg/ml tube daily. 16 citalopram (CELEXA) 20 mg 1 Tab daily. 90 Tab 3 11/11/19 Active tablet 16 methocarbamol (ROBAXIN) 1 Tab twice daily. 11/11/19 Active 500 mg tablet 16 lidocaine (LIDODERM) 5 % Apply 1 Patch topically 30 Patch 11/11/19 Active topical patch to affected area daily. 16 Apply patch for 12 hours, then remove for 12 hours before repeating. potassium phosphate 1 Tab by Per NG tube 11/11/19 Active (K-PHOS ORIGINAL) 500 mg route twice daily. 16 TbSO Active Problems Problem Noted Date Hypotension 11/05/2015 Urinary retention 11/05/2015 Acute respiratory failure (HCC) 10/22/2015 Respiratory distress 10/20/2015 Cerebral edema (HCC) 10/20/2015 Aspiration pneumonia (HCC) 10/20/2015 Posterior fossa tumor (HCC) 10/13/2015 Status post right mastectomy 11/06/2014 Malignant neoplasm of upper-outer quadrant of right female breast (HCC) 02/2014 Overview: DIAGNOSIS: Right, grade 3, IDC (ER30%, PR0%, HER2 3+, Ki-67 20%) with grade 3 DCIS at 9:30, dx 04/2014 HISTORY: Ms. Ozuna is a female who presented [facility] on 08/17/2014 at age 49 for evaluation of right breast cancer. Ms. Ozuna first felt a right breast lump in March 2014. Right breast sono-guided biopsy 04/29/14 ([place], [place]) revealed, grade 3, HER2 positive invasive ductal carcinoma. PET scan 05/12/14 ([place], [place]) revealed a 2.5 cm hypermetabolic mass in the lateral right breast. There was a 1 cm axillary lymph node and several subcentimeter axillary lymph nodes with increased uptake deep to the pectoralis muscle. There was a 1 cm lymph node with mild hypermetabolism in the prevascular station in the anterior superior mediastinum. No other areas of abnormality. Ms. Ozuna underwent right skin sparing mastectomy/SLNB/TE on 11/05/14. She finished radiation in [place], [place] in February 2015. She started Examestane in February 2015. PATHOLOGY: Tumor: 2.4 cm tumor bed with no residual tumor Margins Free From Tumor: No ER: positive AK: negative Her 2: positive Grade: 3 Lymph Nodes: 0/2 LVSI: no Extranodal extension: no BREAST IMAGING: Mammogram: -- Right diagnostic mammogram 04/23/14 ([place], [place]) revealed distortion of the breast tissue in the upper outer quadrant with several areas of abnormal calcifications. -- Right diagnostic mammogram 08/17/14 () revealed a clip at 9:30 with surrounding pleomorphic calcifications. The calcifications panned 7 cm and extended to approximately 1 cm FTN. Ultrasound: -- Right breast ultrasound 04/23/14 ([place], [place]) revealed 2.3 cm hypoechoic mass corresponding to mammogram. -- Right axilla ultrasound 08/17/14 () revealed no abnormal axillary lymph nodes. REPRODUCTIVE HEALTH: Age at first Menarche: 13 Age at Menopause: 49 : 2 Para: 2 : 10 weeks PROCEDURE: Right skin sparing mastectomy/SLNB/TE, 11/05/14 PERTINENT PMH: Negative FAMILY HISTORY: No family history of breast, ovarian, prostate or pancreatic cancer PHYSICAL EXAM on PRESENTATION: Left - No palpable breast masses. No skin, nipple, or areolar change. Right - Thickening in the upper outer quadrant. No discrete palpable mass. No skin, nipple or areolar change. No supraclavicular or axillary adenopathy. MEDICAL ONCOLOGY: Dr. Esme Mathias ([place], [place]) PRESENT THERAPY: Neoadjuvant AC x 4 finished 07/16/14, followed by taxotere/perjeta/herceptin finished 10/08/14; started Exemestane in February 2015 REFERRED BY: Self Most Recent Encounters Date Type Specialty Providers Description 11/22/2015 Telephone Neurosurgery Juancarlos Cole MD Paperwork 11/05/2015 [facility] Radiology Sherine Roca Encounter Saira Birch Steven, MD 11/05/2015 Surgery Yao Oliveira MD TRACHEOSTOMY 11/04/2015 Anesthesia Ghada Interiano, NIKKO Event 11/03/2015 [facility] Radiology Franklin Swan MD Canceled (Error) Encounter Ricardo Rowley RN Vandervegte, Heather Lemons, Steven MD 11/03/2015 Endo Rslt Enc Tuan Harvey MD 11/03/2015 Surgery Chris Valverde MD ESOPHAGOGASTRODUODENOSCOP Y 11/02/2015 Anesthesia Radiology Ty Wolfe SRNA Event 10/27/2015 [facility] Radiology Juancarlos Cole MD Canceled (Error) Encounter 10/27/2015 Hospital Radiology uJancarlos Cole MD Canceled (Error) Encounter Alfredo Wesley RN Melvin, Lorie 10/27/2015 Anesthesia Radiology Deb Chakraborty, NIKKO Event 10/25/2015 [facility] Radiology Kera Chavez APRN Canceled (Error) Encounter 10/21/2015 Screening Form 10/21/2015 Anesthesia Neurosurgery Jorge Fernández MD Event 10/20/2015 [facility] Radiology Velia Celis APRN Canceled (Other) Encounter 10/15/2015 Surgery Kristian Rodas MD Canceled RECONSTRUCTION BREAST WITH IMPLANT 10/14/2015 Anesthesia Addi Rosado MD Event 10/14/2015 Surgery Juancarlos Cole MD SUBOCCIPITAL CRANIECTOMY AND CERVICAL 1 LAMINECTOMY FOR RESECTION OF CEREBELLAR MASS CPT 37733 10/13/2015 [facility] Ozzy Keys MD Posterior fossa tumor - Encounter Juancarlos Cole MD (HCC) 11/11/2015 10/13/2015 Prep for Case Neurosurgery Juancarlos Cole MD Malignant neoplasm of cerebellum (HCC) (Primary Dx) 10/13/2015 Telephone Plastic Surgery Kristian Rodas MD General Question 10/08/2015 Office Visit Plastic Surgery Kristian Rodas MD Malignant neoplasm of upper-outer quadrant of right female breast (HCC) (Primary Dx) 10/01/2015 Nurse Only Plastic Surgery Evangelina Boyd, KAYLAH 09/29/2015 Surgery Kristian Rodas MD Canceled RECONSTRUCTION BREAST WITH FREE FLAP 09/24/2015 Nurse Only Plastic Surgery Evangelina Boyd, KAYLAH Social History Tobacco Use Types Packs/Day Years Used Date Never Smoker Smokeless Tobacco: Never Used Alcohol Use Drinks/Week oz/Week Comments No 0 Standard 0.0 drinks or equivalent Last Filed Vital Signs Vital Sign Reading Time Taken Blood Pressure 138/68 11/11/2015 10:02 AM CDT Pulse 88 11/11/2015 10:02 AM CDT Temperature 37.1 C (98.8 F) 11/11/2015 10:02 AM CDT Respiratory Rate 16 05/14/2015 11:14 AM CDT Height 1.6 m (5' 3") 11/01/2015 9:47 AM CDT Weight 59.3 kg (130 lb 11.7 oz) 11/08/2015 6:00 AM CDT Body Mass Index 23.16 11/08/2015 6:00 AM CDT Oxygen Saturation 97% 11/11/2015 10:39 AM CDT Plan of Care Health Maintenance Due Date Last Done Comments Hepatitis C Screening 1965 Physical (Comprehensive) 1971 Exam Pertussis Vaccine 1975 Tetanus Vaccine 1981 Cervical Cancer Screening 1985 Breast Cancer Screening 2004 Colorectal Cancer 2014 Screening Influenza Vaccine 10/14/2015 Procedures from Last 3 Months Procedure Name Priority Date/Time Associated Diagnosis Comments PROCEDURES-SCAN 11/14/2015 Results for this 5:54 PM CDT procedure are in the results section. PROCEDURES-SCAN 11/14/2015 Results for this 5:52 PM CDT procedure are in the results section. PROCEDURES-SCAN 11/14/2015 Results for this 5:52 PM CDT procedure are in the results section. PROCEDURES-SCAN 11/14/2015 Results for this 5:52 PM CDT procedure are in the results section. CONSULT IV THERAPY TEAM STAT 11/06/2015 2:15 AM CDT REMOVAL INTRAPERITONEAL 11/05/2015 Respiratory disease PORT 1:30 PM CDT TRACHEOSTOMY 11/05/2015 Respiratory disease 1:30 PM CDT ESOPHAGOGASTRODUODENOSCOP 11/03/2015 Hematemesis Y 6:30 PM CDT PROCEDURES-SCAN 11/02/2015 Results for this 12:20 PM CDT procedure are in the results section. CONSULT IV THERAPY TEAM Routine 10/30/2015 10:10 AM CDT CONSULT IV THERAPY TEAM Routine 10/28/2015 7:20 AM CDT CONSULT IV THERAPY TEAM STAT 10/28/2015 5:02 AM CDT PROCEDURES-SCAN 10/23/2015 Results for this 1:44 PM CDT procedure are in the results section. PROCEDURES-SCAN 10/16/2015 Results for this 4:06 PM CDT procedure are in the results section. SUBOCCIPITAL CRANIECTOMY 10/14/2015 Malignant neoplasm of AND CERVICAL 1 12:35 PM CDT cerebellum (HCC) LAMINECTOMY FOR RESECTION OF CEREBELLAR MASS CPT 96797 Results from Last 3 Months PROCEDURES-SCAN (11/14/2015 5:54 PM) Narrative Ordered by an unspecified provider. PROCEDURES-SCAN (11/14/2015 5:52 PM) Narrative Ordered by an unspecified provider. PROCEDURES-SCAN (11/14/2015 5:52 PM) Narrative Ordered by an unspecified provider. PROCEDURES-SCAN (11/14/2015 5:52 PM) Narrative Ordered by an unspecified provider. PHOSPHORUS (11/11/2015 6:32 AM)Only the most recent of 25 results within the time period is included. Component Value Range Phosphorus 3.4 2.0-4.0 MG/DL Specimen Blood MAGNESIUM (11/11/2015 6:32 AM)Only the most recent of 23 results within the time period is included. Component Value Range Magnesium 2.1 1.6-2.6 MG/DL Specimen Blood IONIZED CALCIUM (11/11/2015 6:32 AM)Only the most recent of 21 results within the time period is included. Component Value Range Ionized Calcium 1.17 1.0-1.3 MMOL/L Specimen Blood BASIC METABOLIC PANEL (11/11/2015 6:32 AM)Only the most recent of 21 results within the time period is included. Component Value Range Sodium 135 (L) 137-147 MMOL/L Potassium 4.1 3.5-5.1 MMOL/L Chloride 93 (L) 98-110 MMOL/L CO2 35 (H) 21-30 MMOL/L Anion Gap 7 3-12 Glucose 142 (H) 70-100 MG/DL Blood Urea Nitrogen 19 7-25 MG/DL Creatinine 0.45 0.4-1.00 MG/DL Calcium 9.3 8.5-10.6 MG/DL eGFR Non >60Comment: >60 mL/min The eGFR is not validated for use in drug dosing adjustments. Continue to use estimated creatinine clearance per dosing reference text. Please contact the Clinical Pharmacist for questions. eGFR >60Comment: >60 mL/min The eGFR is not validated for use in drug dosing adjustments. Continue to use estimated creatinine clearance per dosing reference text. Please contact the Clinical Pharmacist for questions. Specimen Blood CBC AND DIFF (11/11/2015 6:32 AM)Only the most recent of 30 results within the time period is included. Component Value Range White Blood Cells 9.2 4.5-11.0 K/UL RBC 3.80 (L) 4.0-5.0 M/UL Hemoglobin 11.4 (L) 12.0-15.0 GM/DL Hematocrit 33.7 (L) 36-45 % MCV 88.7 80-100 FL MCH 30.1 26-34 PG MCHC 33.9 32.0-36.0 G/DL RDW 14.3 11-15 % Platelet Count 300 150-400 K/UL MPV 7.5 7-11 FL Neutrophils 77 41-77 % Lymphocytes 13 (L) 24-44 % Monocytes 7 4-12 % Eosinophils 3 0-5 % Basophils 0 0-2 % Absolute Neutrophil Count 7.00 1.8-7.0 K/UL Absolute Lymph Count 1.20 1.0-4.8 K/UL Absolute Monocyte Count 0.70 0-0.80 K/UL Absolute Eosinophil Count 0.30 0-0.45 K/UL Absolute Basophil Count 0.00 0-0.20 K/UL Specimen Blood POC GLUCOSE (11/10/2015 11:22 AM)Only the most recent of 64 results within the time period is included. Component Value Range Glucose, POC 112 (H) 70-100 MG/DL VRE SCREEN (11/08/2015 6:10 AM)Only the most recent of 4 results within the time period is included. Component Value Range Battery Name VRE SCREEN Specimen Description PERIRECTAL SWAB Special Requests NONE Culture NO VRE ISOLATED Report Status FINAL 11/09/2015 Specimen Perirectal Swab POTASSIUM (11/06/2015 2:05 PM)Only the most recent of 2 results within the time period is included. Component Value Range Potassium 4.3 3.5-5.1 MMOL/L Specimen Blood SODIUM (11/06/2015 2:05 PM)Only the most recent of 24 results within the time period is included. Component Value Range Sodium 138 137-147 MMOL/L Specimen Blood COMPREHENSIVE METABOLIC PANEL (11/06/2015 2:34 AM)Only the most recent of 11 results within the time period is included. Component Value Range Sodium 139 137-147 MMOL/L Potassium 3.8 3.5-5.1 MMOL/L Chloride 104 98-110 MMOL/L Glucose 91 70-100 MG/DL Blood Urea Nitrogen 12 7-25 MG/DL Creatinine 0.49 0.4-1.00 MG/DL Calcium 8.3 (L) 8.5-10.6 MG/DL Total Protein 5.2 (L) 6.0-8.0 G/DL Total Bilirubin 1.0 0.3-1.2 MG/DL Albumin 2.5 (L) 3.5-5.0 G/DL Alk Phosphatase 104 25-110 U/L AST (SGOT) 51 (H) 7-40 U/L CO2 27 21-30 MMOL/L ALT (SGPT) 118 (H) 7-56 U/L Anion Gap 8 3-12 eGFR Non >60Comment: >60 mL/min The eGFR is not validated for use in drug dosing adjustments. Continue to use estimated creatinine clearance per dosing reference text. Please contact the Clinical Pharmacist for questions. eGFR >60Comment: >60 mL/min The eGFR is not validated for use in drug dosing adjustments. Continue to use estimated creatinine clearance per dosing reference text. Please contact the Clinical Pharmacist for questions. Specimen Blood CULTURE-FUNGAL,OTHER (11/05/2015 3:15 PM) Component Value Range Battery Name FUNGUS CULTURE Specimen Description HARDWARE SPECIMEN PAC Special Requests NONE Culture NO GROWTH OF FUNGUS AT 4 WEEKS Report Status FINAL 12/06/2015 Specimen Hardware - Portacath CULTURE-WOUND/TISSUE/FLUID(AEROBIC ONLY)W/SENSITIVITY (11/05/2015 3:15 PM) Component Value Range Battery Name ROUTINE CULTURE Specimen Description HARDWARE SPECIMEN PAC Special Requests NONE Culture STAPHYLOCOCCUS EPIDERMIDIS isolated from broth only (A) Report Status FINAL 11/10/2015 Organism ID STAPHYLOCOCCUS EPIDERMIDIS isolated from broth only Organism ID STAPHYLOCOCCUS EPIDERMIDIS isolated from broth only Specimen Hardware - Portacath Organism Antibiotic Method Susceptibility Staphylococcus epidermidis isolated from Clindamycin NADEEM <=0.5 SUSCEPTIBLE: broth only (MCG/ML) Susceptible INTERPRETA TION Staphylococcus epidermidis isolated from Erythromycin NADEEM <=0.5 SUSCEPTIBLE: broth only (MCG/ML) Susceptible INTERPRETA TION Staphylococcus epidermidis isolated from Oxacillin NADEEM <=0.25 SUSCEPTIBLE: broth only (MCG/ML) Susceptible INTERPRETA TION Staphylococcus epidermidis isolated from Vancomycin NADEEM 1 SUSCEPTIBLE: broth only (MCG/ML) Susceptible INTERPRETA TION Staphylococcus epidermidis isolated from Tetracycline NADEEM <=0.5 SUSCEPTIBLE: broth only (MCG/ML) Susceptible INTERPRETA TION Staphylococcus epidermidis isolated from Method NADEEM NADEEM (MCG/ML) broth only (MCG/ML) INTERPRETATION INTERPRETA TION Staphylococcus epidermidis isolated from Trimethsulfa FOX SUSCEPTIBLE : Susceptible broth only FERGUSON Staphylococcus epidermidis isolated from Method FOX FOX FERGUSON broth only FERGUSON CULTURE-ANAEROBIC (11/05/2015 3:15 PM) Component Value Range Battery Name ANAEROBE CULTURE Specimen Description HARDWARE SPECIMEN PAC Special Requests NONE Culture NO ANAEROBES ISOLATED Report Status FINAL 11/10/2015 Specimen Hardware - Portacath IR GASTROSTOMY (11/05/2015 12:33 PM) Impressions Successful placement of a gastrojejunostomy tube as described above. Finalized by Lexa Winter M.D. on 11/05/2015 1:32 PM. Dictated by Lexa Winter M.D. on 11/05/2015 1:29 PM. Narrative Gastrojejunostomy tube placement Clinical history: Breast cancer, aspiration pneumonia, need for tube feeding Technique and findings: Vinod Chamorro M.D., the attending radiologist, was present for the procedure, personally reviewed the images, and formulated the interpretations and opinions expressed in this report. After informed written consent was obtained, the patient was brought to the fluoroscopy suite and placed in the supine position. The anterior abdomen was prepped and draped in the usual sterile fashion. A 5 Bahamian ROHIT 1 catheter was advanced through the left nostril into the gastric lumen and the stomach was insufflated with air. 2% lidocaine was used to anesthetize the anterior abdominal wall. 3 T-fasteners were placed inside the body of the stomach under fluoroscopic guidance and the gastropexy was formed. A dermatotomy incision was made and an 18-gauge Seldinger needle was advanced into the gastric lumen. An Amplatz wire was advanced into the stomach and the needle was removed. A 5 Bahamian ROHIT 1 catheter was used to cross the pylorus and was advanced to the proximal jejunum. An Amplatz wire was then advanced into the proximal jejunum and the ROHIT 1 catheter was removed. A series of dilators were placed over the Amplatz wire followed by 20 Bahamian peel-away sheath. The ROHIT 1 catheter was then used to exchange the Amplatz wire for a stiff Glidewire and was subsequently removed. An 18 Bahamian 45 cm gastrojejunostomy tube was advanced over the stiff Glidewire and through the peel-away sheath. The balloon was inflated with 10 cc of sterile water. Contrast material was injected through each lumen demonstrating excellent positioning of the catheter. Each lumen was then flushed with saline and the tube was secured in place with a J Carlos disc and zip tie. Sterile dressings were applied, and the patient was taken to the ICU in unchanged condition. Total radiation dose: 35 mg Contrast: 45 cc Isovue-300 Medications: Fentanyl 100 mcg Procedure Note Interface, Radiant Results - SunNov 05, 2015 1:35 PM CDT Gastrojejunostomy tube placement Clinical history: Breast cancer, aspiration pneumonia, need for tube feeding Technique and findings: Vinod Chamorro M.D., the attending radiologist, was present for the procedure, personally reviewed the images, and formulated the interpretations and opinions expressed in this report. After informed written consent was obtained, the patient was brought to the fluoroscopy suite and placed in the supine position. The anterior abdomen was prepped and draped in the usual sterile fashion. A 5 Bah[place]ian ROHIT 1 catheter was advanced through the left nostril into the gastric lumen and the stomach was insufflated with air. 2% lidocaine was used to anesthetize the anterior abdominal wall. 3 T-fasteners were placed inside the body of the stomach under fluoroscopic guidance and the gastropexy was formed. A dermatotomy incision was made and an 18-gauge Seldinger needle was advanced into the gastric lumen. An Amplatz wire was advanced into the stomach and the needle was removed. A 5 Bah[place]ian ROHIT 1 catheter was used to cross the pylorus and was advanced to the proximal jejunum. An Amplatz wire was then advanced into the proximal jejunum and the ROHIT 1 catheter was removed. A series of dilators were placed over the Amplatz wire followed by 20 Bahamian peel-away sheath. The ROHIT 1 catheter was then used to exchange the Amplatz wire for a stiff Glidewire and was subsequently removed. An 18 Bah[place]ian 45 cm gastrojejunostomy tube was advanced over the stiff Glidewire and through the peel-away sheath. The balloon was inflated with 10 cc of sterile water. Contrast material was injected through each lumen demonstrating excellent positioning of the catheter. Each lumen was then flushed with saline and the tube was secured in place with a J Carlos disc and zip tie. Sterile dressings were applied, and the patient was taken to the ICU in unchanged condition. Total radiation dose: 35 mg Contrast: 45 cc Isovue-300 Medications: Fentanyl 100 mcg IMPRESSION Successful placement of a gastrojejunostomy tube as described above. Finalized by Lexa Winter M.D. on 11/05/2015 1:32 PM. Dictated by Lexa Winter M.D. on 11/05/2015 1:29 PM. BLOOD GASES, ARTERIAL (11/05/2015 8:43 AM)Only the most recent of 13 results within the time period is included. Component Value Range pH-Arterial 7.46 (H) 7.35-7.45 pCO2-Arterial 39 35-45 MMHG pO2-Arterial 83 80-100 MMHG Base Excess-Arterial 3.5 MMOL/L O2 Sat-Arterial 96.7 95-99 % Qiqzqxsicgn-GKC-Aqn 27.5 21-28 MMOL/L Specimen Blood, arterial - Blood PROTIME INR (PT) (11/05/2015 12:13 AM)Only the most recent of 3 results within the time period is included. Component Value Range INR 1.1 0.8-1.2 Specimen Blood LIVER FUNCTION PANEL (11/05/2015 12:13 AM)Only the most recent of 2 results within the time period is included. Component Value Range Total Bilirubin 0.7 0.3-1.2 MG/DL Bilirubin, Direct 0.2 <0.4 MG/DL Albumin 2.3 (L) 3.5-5.0 G/DL Alk Phosphatase 95 25-110 U/L AST (SGOT) 109 (H) 7-40 U/L ALT (SGPT) 158 (H) 7-56 U/L Total Protein 4.8 (L) 6.0-8.0 G/DL Specimen Blood GRAM STAIN (11/03/2015 11:53 PM)Only the most recent of 3 results within the time period is included. Component Value Range Battery Name GRAM STAIN Specimen Description TRACHEAL ASPIRATE Special Requests NONE Gram Stain LESS THAN 10/LPF NEUTROPHILS LESS THAN 10/LPF SQUAMOUS EPITHELIAL CELLS NO ORGANISMS SEEN Report Status FINAL 11/04/2015 Specimen Tracheal Aspirate CULTURE-RESP,LOWER W/SENSITIVITY (11/03/2015 11:53 PM)Only the most recent of 3 results within the time period is included. Component Value Range Battery Name LOWER RESP CULTURE Specimen Description TRACHEAL ASPIRATE Special Requests NONE Direct Gram Stain LESS THAN 10/LPF NEUTROPHILS LESS THAN 10/LPF SQUAMOUS EPITHELIAL CELLS NO ORGANISMS SEEN Culture NO GROWTH 2 DAYS Report Status FINAL 11/06/2015 Specimen Tracheal Aspirate EGD (11/03/2015 6:41 PM) Component Value Range Provation Report Patient Name: Benjamin Sims Procedure Date: 11/03/2015 6:41 PM CSN: [id number] Date of : 1965 Gender: Female Attending Physician: Chris Valverde MD Procedure: Upper GI endoscopy Indications: Th erapeutic procedure, Diagnostic procedure, Suspected upper gastrointestinal bleeding Providers: Chris Valverde MD (Doctor), Gerald Kilgore RN (Nurse), Vel Ray, Profile Shaper Operator (Profile Shaper Operator), Richie Corbin, Profile Shaper Operator (Profile Shaper Operator), Ephraim Al MD (Fellow) Referring Physician: Tuan Harvey Medications: Pr opofol per Anesthesia Complications: No immediate complications. Procedure: Pre-Anesthesia Assessment: - Prior to the procedure, a History and Physical was performed, and patient medications and allergies were reviewed. The patient's tolerance of previous anesthesia was also reviewed. The risks and benefits of the procedure and the sedation options and risks were discussed with the patient. All questions were answered, and informed consent was obtained. Prior Anticoagulants: The patient has taken no previous anticoagulant or antiplatelet agents. ASA Grade Assessment: IV - A patient with severe systemic disease that is a constant threat to life. After reviewing the risks and benefits, the patient was deemed in satisfactory condition to undergo the procedure. - The alternatives, risks and benefits of the procedure were discussed at length with the patient's spouse. The patient's proxy verbalized understanding of the risks as well as the alternatives and wished to proceed with the procedure. After obtaining informed consent, the endoscope was passed under direct vision. Throughout the procedure, the patient's blood pressure, pulse, and oxygen saturations were monitored continuously. The Endoscope [id number] was introduced through the mouth, and advanced to the second part of duodenum. The upper GI endoscopy was accomplished without difficulty. The patient tolerated the procedure well. Findings: The oropharynx had fresh blood. A definitive source of bleeding in this location was not able to be identified. The examined esophagus was normal. No gross lesions were noted in the entire examined stomach. The examined duodenum was normal other than slight pale appearing mucosa in sweep. Impression: - Normal esophagus. - Normal stomach - small patchy pale mucosa (mild and discreet/small) in duodenal sweep - there were no oozing or actively bleeding lesions seen in the esophagus, stomach or duodenum - there was blood in the oropharynx that is draining down the esophagus - No specimens collected. Estimated Blood Loss: Estimated blood loss: none. Recommendation: - Patient has a contact number available for emergencies. The signs and symptoms of potential delayed complications were discussed with the patient. Return to normal activities tomorrow. Written discharge instructions were provided to the patient. - Resume previous diet. - Continue present medications. Scope In: 7:06:26 PM Scope Out: 7:19:27 PM Total Procedure Duration Time 0 hours 13 minutes 1 second Procedure Code(s): --- Professional --- 63320, Esophagogastroduodenoscopy, flexible, transoral; diagnostic, including collection of specimen(s) by brushing or washing, when performed (separate procedure) CPT copyright 2015 [employer]. All rights reserved. The codes documented in this report are preliminary and upon validation engineer review may be revised to meet current compliance requirements. Attending Participation: I was present and participated during the entire procedure, including non-dey portions. MD Chris Alfred MD 11/05/2015 12:52:44 PM The attending physician has electronically signed and finalized this document. Ephraim Al MD 11/03/2015 7:40:20 PM Number of Addenda: 0 Note Initiated On: 11/03/2015 6:41 PM CHEST SINGLE VIEW (11/03/2015 5:05 PM)Only the most recent of 9 results within the time period is included. Impressions Mild interval improvement in alveolar predominant infiltrates within the bilateral lung bases. Approved by Tuan Taveras M.D. on 11/04/2015 8:27 AM By my electronic signature, I attest that I have personally reviewed the images for this examination and formulated the interpretations and opinions expressed in this report Finalized by Fredi Panda M.D. on 11/04/2015 8:45 AM. Dictated by Tuan Taveras M.D. on 11/04/2015 7:17 AM. Narrative CHEST SINGLE VIEW History:Female, 50 years old.Intubation. 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 Interval improvement in alveolar predominant infiltrates within the bilateral lung bases. Heart size and pulmonary vasculature are within normal limits. No significant pleural effusions or pneumothoraces are identified. Chondroid lesion within the left humerus is again noted. Procedure Note Interface, Radiant Results - Ann Marie Nov 04, 2015 9:25 AM CDT CHEST SINGLE VIEW History: Female, 50 years old. Intubation. 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 Interval improvement in alveolar predominant infiltrates within the bilateral lung bases. Heart size and pulmonary vasculature are within normal limits. No significant pleural effusions or pneumothoraces are identified. Chondroid lesion within the left humerus is again noted. IMPRESSION Mild interval improvement in alveolar predominant infiltrates within the bilateral lung bases. Approved by Tuan Taveras M.D. on 11/04/2015 8:27 AM By my electronic signature, I attest that I have personally reviewed the images for this examination and formulated the interpretations and opinions expressed in this report Finalized by Fredi Panda M.D. on 11/04/2015 8:45 AM. Dictated by Tuan Taveras M.D. on 11/04/2015 7:17 AM. CBC (11/03/2015 4:31 PM)Only the most recent of 3 results within the time period is included. Component Value Range White Blood Cells 6.3 4.5-11.0 K/UL RBC 4.49 4.0-5.0 M/UL Hemoglobin 13.2 12.0-15.0 GM/DL Hematocrit 40.1 36-45 % MCV 89.3 80-100 FL MCH 29.5 26-34 PG MCHC 33.0 32.0-36.0 G/DL RDW 14.6 11-15 % Platelet Count 152 150-400 K/UL MPV 9.1 7-11 FL Specimen Blood TUMOR PROGNOSTIC MARKERS SCAN (11/03/2015 8:05 AM) Narrative Ordered by an unspecified provider. PROCEDURES-SCAN (11/02/2015 12:20 PM) Narrative Ordered by an unspecified provider. US DOPPLER VENOUS BILATERAL (11/02/2015 8:16 AM)Only the most recent of 3 results within the time period is included. Impressions No evidence of acute or occlusive deep venous thrombosis in either leg. Finalized by Fredi Panda M.D. on 11/02/2015 10:03 AM. Dictated by Fredi Panda M.D. on 11/02/2015 10:02 AM. Narrative Bilateral lower extremity venous Doppler History: immobility, Technique: Multiple 2-D real-time grayscale sonographic images were obtained throughout the lower extremities. In addition, color and duplex Doppler images were obtained of the deep venous systems. Comparison: Comparison is made to an examination of 10/26/2015. Findings: There are no areas of narrowing or occlusion within the deep veins of the lower extremities on the color Doppler examination. There is complete filling in of all examined segments. The common femoral veins, deep femoral veins, femoral veins through the thigh, and popliteal veins are widely patent bilaterally. There is complete compressibility of the visualized portions of the deep veins bilaterally. There is also normal variability and response to augmentation. There is no evidence of mass or loculated fluid collection. Procedure Note Interface, Radiant Results - Tue Nov 02, 2015 10:06 AM CDT Bilateral lower extremity venous Doppler History: immobility, Technique: Multiple 2-D real-time grayscale sonographic images were obtained throughout the lower extremities. In addition, color and duplex Doppler images were obtained of the deep venous systems. Comparison: Comparison is made to an examination of 10/26/2015. Findings: There are no areas of narrowing or occlusion within the deep veins of the lower extremities on the color Doppler examination. There is complete filling in of all examined segments. The common femoral veins, deep femoral veins, femoral veins through the thigh, and popliteal veins are widely patent bilaterally. There is complete compressibility of the visualized portions of the deep veins bilaterally. There is also normal variability and response to augmentation. There is no evidence of mass or loculated fluid collection. IMPRESSION No evidence of acute or occlusive deep venous thrombosis in either leg. Finalized by Fredi Panda M.D. on 11/02/2015 10:03 AM. Dictated by Fredi Panda M.D. on 11/02/2015 10:02 AM. 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 LVIDD 4.1 3.9-5.3 cm LVIDS 3.1 cm IVS 0.7 0.6-0.9 cm PW 0.8 0.6-0.9 cm FS 24.39 28-44 % EF 41.46 % LA size 2.9 2.7-3.8 cm LA volume 31.0 22-52 mL Left Atrium Index 19.50 10-32 Right Ventricular Basal 3.3 cm (2.4-4.2) Diameter Right Atrial Area 9.4 cm2 (<=18) Right Ventricular Mid 2.8 cm (2.0-3.5) Diameter Right Atrial Major 4.1 cm (<=5.3) Dimension Right Ventricular Long 6.8 cm (5.6-8.6) Diameter Right Atrial Minor 2.9 cm (<=4.4) Dimension Sinus 2.6 2.1-3.5 cm AV peak velocity 1.7 m/s TV rest pulmonary artery 42 mmHg pressure E/A ratio 1.33 TDI e' 0.110 m/s E/E' ratio 7.27 MV Peak E Matt PW 0.800 m/s MV Peak A Matt 0.600 m/s Right Heart Systolic TDI 0.180 m/s S' Right Heart Systolic MPI 0.53 Right Heart Systolic ET 236.0 ms Right Heart Systolic TCO 361.0 ms Right Heart Systolic 2.1 cm Mmode TAPSE Narrative Left ventricular systolic function is within normal limits. LVEF 65% Normal left ventricular diastolic function. No significant valvular abnormalities. Estimated peak systolic pulmonary artery pressure is 42 mmHg. No pericardial effusion. LACTIC ACID(LACTATE) (11/01/2015 2:00 AM)Only the most recent of 2 results within the time period is included. Component Value Range Lactic Acid 1.3 0.5-2.0 MMOL/L Specimen Blood VANCOMYCIN TROUGH (11/01/2015 2:00 AM)Only the most recent of 4 results within the time period is included. Component Value Range Vancomycin Trough 10.4 10.0-20.0 MCG/ML Specimen Blood, venous - Blood TROPONIN-I (11/01/2015 2:00 AM)Only the most recent of 3 results within the time period is included. Component Value Range Troponin-I 0.06 (H) 0.0-0.05 NG/ML Specimen Blood TRANSFUSE RBC'S BLEEDING PT OR EXCHANGE TRANSFUSION (10/31/2015 4:34 PM)Only the most recent of 3 results within the time period is included. Specimen Blood C DIFFICILE BY PCR (10/31/2015 11:47 AM) Component Value Range Battery Name C DIFFICILE PCR Specimen Description FECES Special Requests NONE C. Difficile Toxin B PCR NEGATIVE-wait 7 days to repeat test Report Status FINAL 11/01/2015 Specimen Feces TYPE & CROSSMATCH (10/31/2015 11:01 AM)Only the most recent of 3 results within the time period is included. Component Value Range Units Ordered 2 Crossmatch Expires 11/03/2015 Record Check FOUND ABO/RH(D) O POS Antibody Screen NEG Electronic Crossmatch YES Unit Number [id number] Blood Component Type RBC,ADSOL,LEUKO REDUCED Unit Division 0 Status OF Unit TRANSFUSED Transfusion Status OK TO TRANSFUSE Crossmatch Result COMPATIBLE,ELECTRONIC Specimen Blood HEPARIN INDUCED PLT AB (HIT) (10/30/2015 2:43 PM) Component Value Range Heparin Induced Plt AB NEGATIVEComment: TEST PERFORMED BY [facility] Heparin AB OD 0.042 0.000-0.499 Specimen Blood CULTURE-BLOOD W/SENSITIVITY (10/30/2015 2:35 PM)Only the most recent of 7 results within the time period is included. Component Value Range Battery Name BLOOD CULTURE Specimen Description BLOOD LEFT PFA Special Requests NONE Culture NO GROWTH 5 DAYS Report Status FINAL 11/05/2015 Specimen Blood CULTURE-URINE W/SENSITIVITY (10/30/2015 2:35 PM)Only the most recent of 2 results within the time period is included. Component Value Range Battery Name URINE CULTURE Specimen Description URINE,INDWELLING CATH Special Requests NONE Culture NO GROWTH Report Status FINAL 10/31/2015 Specimen Urine - Winston Catheter ABDOMEN AP ONLY (10/28/2015 5:26 PM)Only the most recent of 9 results within the time period is included. Impressions Enteric tube as described above. Approved by Agueda Mcclellan M.D. on 10/29/2015 8:45 AM By my electronic signature, I attest that I have personally reviewed the images for this examination and formulated the interpretations and opinions expressed in this report Finalized by Jimy Goss M.D. on 10/29/2015 3:16 PM. Dictated by Agueda Mcclellan M.D. on 10/29/2015 8:14 AM. Narrative ABDOMEN AP ONLY CLINICAL HISTORY: 50-year-old female, Corpak placement COMPARISON: Abdomen AP prior day FINDINGS: One AP supine view of the abdomen was obtained for interpretation. Surgical clips overlie the right lower chest seen right upper quadrant. Enteric tube is in place with the distal tip overlying the gastric outlet. Guidewire remains in place. Scattered gas is seen throughout the visualized loops of bowel. The lower abdomen and pelvis are excluded from [id number]. Partial visualization of patchy bilateral pulmonary opacities. Partial visualization of the right breast tissue munitions handler. Procedure Note Interface, Radiant Results - SunOct 29, 2015 3:19 PM CDT ABDOMEN AP ONLY CLINICAL HISTORY: 50-year-old female, Corpak placement COMPARISON: Abdomen AP prior day FINDINGS: One AP supine view of the abdomen was obtained for interpretation. Surgical clips overlie the right lower chest seen right upper quadrant. Enteric tube is in place with the distal tip overlying the gastric outlet. Guidewire remains in place. Scattered gas is seen throughout the visualized loops of bowel. The lower abdomen and pelvis are excluded from [id number]. Partial visualization of patchy bilateral pulmonary opacities. Partial visualization of the right breast tissue munitions handler. IMPRESSION Enteric tube as described above. Approved by Agueda Mcclellan M.D. on 10/29/2015 8:45 AM By my electronic signature, I attest that I have personally reviewed the images for this examination and formulated the interpretations and opinions expressed in this report Finalized by Jimy Goss M.D. on 10/29/2015 3:16 PM. Dictated by Agueda Mcclellan M.D. on 10/29/2015 8:14 AM. TRANSFUSE RBC'S NON-BLEEDING PT (10/28/2015 2:29 PM)Only the most recent of 2 results within the time period is included. Specimen Blood PTT (APTT) (10/28/2015 10:30 AM)Only the most recent of 2 results within the time period is included. Component Value Range APTT 22.0 (L) 24.0-40.0 SEC Specimen Blood CTA HEAD WO/W CONTR+POST PRO (10/27/2015 9:57 AM) Impressions 1. Development of mild hydrocephalus. 2. Continued evolution of a very small amount of intraventricular hemorrhage. 3. Continued evolution of postsurgical changes in the posterior fossa. 4. Unremarkable CTA of the head. Finalized by Kannan Huerta M.D. on 10/27/2015 12:29 PM. Dictated by Kannan Huerta M.D. on 10/27/2015 12:10 PM. Narrative CTA head Clinical history: Brain metastasis, increasing weakness Comparison study: CT head October 21, 2015 Technique: Multiple axial scans of the head are obtained without contrast. Following this, CTA of the head obtained with normal protocol. Sagittal and coronal reformats are obtained in addition to 3-D volume rendered postprocessing reformats Findings: CT head: There has been a mild to moderate increase in ventricular size. Continued evolution of postoperative changes within the cerebellum. There is no new hemorrhage identified. Evolving trace amount of intraventricular hemorrhage is also present. No midline shift or mass effect identified. CTA: The distal internal carotid and distal vertebral arteries are widely patent. Anterior, middle, and posterior cerebral arteries are also normal. No intracranial stenosis, aneurysm, or vascular malformation is identified. The basilar artery is unremarkable. Procedure Note Interface, Radiant Results - Wed Oct 27, 2015 12:32 PM CDT CTA head Clinical history: Brain metastasis, increasing weakness Comparison study: CT head October 21, 2015 Technique: Multiple axial scans of the head are obtained without contrast. Following this, CTA of the head obtained with normal protocol. Sagittal and coronal reformats are obtained in addition to 3-D volume rendered postprocessing reformats Findings: CT head: There has been a mild to moderate increase in ventricular size. Continued evolution of postoperative changes within the cerebellum. There is no new hemorrhage identified. Evolving trace amount of intraventricular hemorrhage is also present. No midline shift or mass effect identified. CTA: The distal internal carotid and distal vertebral arteries are widely patent. Anterior, middle, and posterior cerebral arteries are also normal. No intracranial stenosis, aneurysm, or vascular malformation is identified. The basilar artery is unremarkable. IMPRESSION 1. Development of mild hydrocephalus. 2. Continued evolution of a very small amount of intraventricular hemorrhage. 3. Continued evolution of postsurgical changes in the posterior fossa. 4. Unremarkable CTA of the head. Finalized by Kannan Huerta M.D. on 10/27/2015 12:29 PM. Dictated by Kannan Huerta M.D. on 10/27/2015 12:10 PM. PROCEDURES-SCAN (10/23/2015 1:44 PM) Narrative Ordered by an unspecified provider. PATHOLOGY INTEROPERATIVE REPORT SCAN (10/21/2015 3:05 PM) Narrative Ordered by an unspecified provider. CT HEAD WO CONTRAST (10/21/2015 12:46 PM) Impressions 1. Mildly limited study secondary repetitive motion. 2. Increase in size of the fluid containing cerebellar resection cavity and/or development of left cerebellar medial parenchymal infarcts. Margins of the operative cavity and parenchymal areas of low attenuation are difficult to discern. MRI is recommended for further evaluation if indicated. 3. Resolution of postoperative pneumocephalus. 4. Slight improvement in ventriculomegaly 5. Evolving small areas of perioperative and intraventricular hemorrhage Findings were discussed with Porsha Noguera at 1:08 PM Finalized by Bill Serrato M.D. on 10/21/2015 1:08 PM. Dictated by Bill Serrato M.D. on 10/21/2015 12:[address] head History: Cerebellar mass status post resection. Hydrocephalus. Stability scan. Breast cancer. Technique: Multiple contiguous axial images were obtained through the head without contrast. Coronal reconstructions were performed from the source data. Findings: Comparison is made with most recent study from October 15, 2015. Repetitive patient motion mildly limits the study. There has been resolution of postoperative pneumocephalus since the October 14 study. There has been expected evolution and slight decrease in hemorrhage within and at the margins of the cerebellar operative cavity. Compared to the study on the second, there has been either increase in size of the operative cavity and or development of low-attenuation parenchymal infarcts within the medial left cerebellum adjacent to the operative cavity. There are some areas of edema within the right cerebellum. The supratentorial parenchyma remains grossly unremarkable with preservation of the ames-white interfaces. There is a trace amount of dependent intraventricular hemorrhage. Ventricles are slightly decreased in size though remain mildly distended. Procedure Note Interface, Radiant Results - Ann Marie Oct 21, 2015 1:[address] head History: Cerebellar mass status post resection. Hydrocephalus. Stability scan. Breast cancer. Technique: Multiple contiguous axial images were obtained through the head without contrast. Coronal reconstructions were performed from the source data. Findings: Comparison is made with most recent study from October 15, 2015. Repetitive patient motion mildly limits the study. There has been resolution of postoperative pneumocephalus since the October 14 study. There has been expected evolution and slight decrease in hemorrhage within and at the margins of the cerebellar operative cavity. Compared to the study on the second, there has been either increase in size of the operative cavity and or development of low-attenuation parenchymal infarcts within the medial left cerebellum adjacent to the operative cavity. There are some areas of edema within the right cerebellum. The supratentorial parenchyma remains grossly unremarkable with preservation of the ames-white interfaces. There is a trace amount of dependent intraventricular hemorrhage. Ventricles are slightly decreased in size though remain mildly distended. IMPRESSION 1. Mildly limited study secondary repetitive motion. 2. Increase in size of the fluid containing cerebellar resection cavity and/or development of left cerebellar medial parenchymal infarcts. Margins of the operative cavity and parenchymal areas of low attenuation are difficult to discern. MRI is recommended for further evaluation if indicated. 3. Resolution of postoperative pneumocephalus. 4. Slight improvement in ventriculomegaly 5. Evolving small areas of perioperative and intraventricular hemorrhage Findings were discussed with Porsha Noguera at 1:08 PM Finalized by Bill Serrato M.D. on 10/21/2015 1:08 PM. Dictated by Bill Serrato M.D. on 10/21/2015 12:51 PM. ANESTHESIA AIRWAY INSERTION (10/21/2015 12:41 PM) Narrative Jorge Fernández MD 10/21/2015 12:41 PM Anesthesia Procedure: Airway Placement AIRWAY INSERTION Date/Time: 10/21/2015 12:30 PM Patient location: other Indication(s) for airway management: respiratory distress and respiratory failure Urgency: emergent Difficult Airway: No Staff Anesthesiologist: MARY HERNANDEZ Performed by: JORGE FERNÁNDEZ Unable to obtain consent. No emergent situation. Verbal consent obtained. Verbal Consent Obtained: Written consent not obtained Consent given by patient. Risks and benefits discussed: yes Patient identity confirmation: verbally with patient Patient evaluated Airway Procedure Spontaneous ventilation: present Sedation level prior to intubation: deep Preoxygenated: yes Patient position: sniffing MILS maintained throughout: Yes Mask difficulty assessment: 1 - vent by mask Procedure Outcome Final airway type: endotracheal airway Endotracheal airway: ETT ETT size (mm): 8.0; Technique used for successful ETT placement: direct laryngoscopy Insertion site: oral Blade type: Ignacio; Laryngoscope/Videolaryngoscope blade size: 3 Cormack-Lehane classification: grade I - full view of glottis Cuffed: yes Measured from: teeth Distance measured (cm): 23 Number of attempts at approach: 1 Number of other approaches attempted: 0 Placement verified by auscultation and capnometry Refer to nursing documentation for vitals/monitoring data URINALYSIS, MICROSCOPIC (10/20/2015 8:45 AM) Component Value Range WBCs,UA 0-2 0-2 /HPF RBCs,UA 0-2 0-3 /HPF MucousUA TRACE Specimen Urine URINALYSIS DIPSTICK (10/20/2015 8:45 AM) Component Value Range Color,UA STRAW Turbidity,UA CLEAR CLEAR-CLEAR [employer]-Urine 1.008 1.003-1.035 pH,UA 7.0 5.0-8.0 Protein,UA NEG NEG-NEG Glucose,UA 1+ (A) NEG-NEG Ketones,UA NEG NEG-NEG Bilirubin,UA NEG NEG-NEG Blood,UA NEG NEG-NEG Urobilinogen,UA NORMAL NORM-NORMAL Nitrite,UA NEG NEG-NEG Leukocytes,UA NEG NEG-NEG Urine Ascorbic Acid, UA NEG NEG-NEG Specimen Urine CTA CHEST WO/W CONTRAST+POST IMPRESSION (10/19/2015 3:38 PM) Impressions 1. Extensive 5 lobe consolidative and groundglass pulmonary opacities. Diagnostic considerations include multifocal pneumonia (possibly on the basis of aspiration), asymmetric pulmonary edema, alveolar hemorrhage, and diffuse alveolar damage. 2. No definite CTA evidence of pulmonary embolism, though examination is limited by motion. 3. Partially visualized patchy sclerosis within the proximal right humerus. Dedicated right humerus radiographs are recommended. Approved by Jo Ann Cortes M.D. on 10/19/2015 4:04 PM By my electronic signature, I attest that I have personally reviewed the images for this examination and formulated the interpretations and opinions expressed in this report Finalized by ZAKIA JEAN-BAPTISTE M.D. on 10/20/2015 8:41 AM. Dictated by Jo Ann Cortes M.D. on 10/19/2015 3:39 PM. Narrative CTA CHEST Clinical Indication:50-year-old female. Shortness of air. Right breast carcinoma post mastectomy and tissue munitions handler placement 11/05/2014. Technique: Multiple contiguous axial CT images were obtained through the chest following the administration of IV contrast.Post processing coronal and sagittal reconstruction images were made from the axial images.Image post- processing was obtained. IV contrast: 100 mL Isovue 370. Comparison: No prior chest CT is available for comparison. Correlation is made with chest radiograph October 15, 2015. FINDINGS: Dr. Zakia Jean-Baptiste has personally reviewed these images and formulated the interpretations and opinions expressed in this report. Axilla, Mediastinum and Gricelda: There is no mediastinal, hilar, or axillary lymphadenopathy. Right axillary surgical clips are noted. Heart and Great Vessels: The heart size is normal. There is no pericardial effusion. The thoracic aorta is normal in caliber. No definite pulmonary artery filling defects are identified, though examination is limited by motion. Airway, Lungs and Pleura: There are retained secretions layering dependently within the trachea and right mainstem bronchus. Extensive bilateral mixed interstitial and alveolar opacities are present in the right upper, middle, and lower lobes with more alveolar consolidation dependently within these lobes. Groundglass and interstitial opacities are present within the left upper and lower lobes. There is no pleural effusion or pneumothorax. Upper Abdomen: There is an enteric tube with tip visualized to the distal second portion of the duodenum. Chest Wall and Osseous Structures: Postsurgical changes of prior right mastectomy with right breast tissue munitions handler in place. Patchy sclerosis is partially visualized within the proximal right humerus. There are prominent lower thoracic degenerative Schmorl's nodes. Left subclavian chest port remains in place. Procedure Note Interface, Radiant Results - Wed Oct 20, 2015 8:44 AM CDT CTA CHEST Clinical Indication: 50-year-old female. Shortness of air. Right breast carcinoma post mastectomy and tissue munitions handler placement 11/05/2014. Technique: Multiple contiguous axial CT images were obtained through the chest following the administration of IV contrast. Post processing coronal and sagittal reconstruction images were made from the axial images. Image post- processing was obtained. IV contrast: 100 mL Isovue 370. Comparison: No prior chest CT is available for comparison. Correlation is made with chest radiograph October 15, 2015. FINDINGS: Dr. Zakia Jean-Baptiste has personally reviewed these images and formulated the interpretations and opinions expressed in this report. Axilla, Mediastinum and Gricelda: There is no mediastinal, hilar, or axillary lymphadenopathy. Right axillary surgical clips are noted. Heart and Great Vessels: The heart size is normal. There is no pericardial effusion. The thoracic aorta is normal in caliber. No definite pulmonary artery filling defects are identified, though examination is limited by motion. Airway, Lungs and Pleura: There are retained secretions layering dependently within the trachea and right mainstem bronchus. Extensive bilateral mixed interstitial and alveolar opacities are present in the right upper, middle, and lower lobes with more alveolar consolidation dependently within these lobes. Groundglass and interstitial opacities are present within the left upper and lower lobes. There is no pleural effusion or pneumothorax. Upper Abdomen: There is an enteric tube with tip visualized to the distal second portion of the duodenum. Chest Wall and Osseous Structures: Postsurgical changes of prior right mastectomy with right breast tissue munitions handler in place. Patchy sclerosis is partially visualized within the proximal right humerus. There are prominent lower thoracic degenerative Schmorl's nodes. Left subclavian chest port remains in place. IMPRESSION 1. Extensive 5 lobe consolidative and groundglass pulmonary opacities. Diagnostic considerations include multifocal pneumonia (possibly on the basis of aspiration), asymmetric pulmonary edema, alveolar hemorrhage, and diffuse alveolar damage. 2. No definite CTA evidence of pulmonary embolism, though examination is limited by motion. 3. Partially visualized patchy sclerosis within the proximal right humerus. Dedicated right humerus radiographs are recommended. Approved by Jo Ann Cortes M.D. on 10/19/2015 4:04 PM By my electronic signature, I attest that I have personally reviewed the images for this examination and formulated the interpretations and opinions expressed in this report Finalized by ZAKIA JEAN-BAPTISTE M.D. on 10/20/2015 8:41 AM. Dictated by Jo Ann Cortes M.D. on 10/19/2015 3:39 PM. PROCEDURES-SCAN (10/16/2015 4:06 PM) Narrative Ordered by an unspecified provider. CT HEAD WO/W CONTRAST (10/15/2015 4:12 AM)Only the most recent of 2 results within the time period is included. Impressions 1. Interval suboccipital craniectomy and cerebellar mass resection without definite residual enhancing soft tissue. 2. Postoperative hemorrhage within the operative cavity as well as supratentoria l and infratentorial pneumocephalus. 3. Slight decrease in size of the lateral and third ventricles. Approved by Jose Spence M.D. on 10/15/2015 8:55 AM By my electronic signature, I attest that I have personally reviewed the images for this examination and formulated the interpretations and opinions expressed in this report Finalized by ALFREDO ENGLAND M.D. on 10/15/2015 11:20 AM. Dictated by Jose Spence M.D. on 10/15/2015 8:51 AM. Narrative EXAM: CT HEAD HISTORY: , post op, posterior fossa mass resection TECHNIQUE: Multiple contiguous axial images were obtained of the brain without intravenous contrast. COMPARISON: CT head from October 14, 2015. FINDINGS: There has been interval suboccipital craniectomy with resection of the midline cerebellar mass. Blood products, fluid, and gas are present within the operative cavity. No definite residual enhancing mass is identified. There is prominent left cerebellar pontine angle, suprasellar, and left hemispheric pneumocephalus. The lateral and third ventricles have mildly decreased in size. The mastoid air cells and visualized paranasal sinuses are well-aerated. Procedure Note Interface, Radiant Results - SunOct 15, 2015 11:23 AM CDT EXAM: CT HEAD HISTORY: , post op, posterior fossa mass resection TECHNIQUE: Multiple contiguous axial images were obtained of the brain without intravenous contrast. COMPARISON: CT head from October 14, 2015. FINDINGS: There has been interval suboccipital craniectomy with resection of the midline cerebellar mass. Blood products, fluid, and gas are present within the operative cavity. No definite residual enhancing mass is identified. There is prominent left cerebellar pontine angle, suprasellar, and left hemispheric pneumocephalus. The lateral and third ventricles have mildly decreased in size. The mastoid air cells and visualized paranasal sinuses are well-aerated. IMPRESSION 1. Interval suboccipital craniectomy and cerebellar mass resection without definite residual enhancing soft tissue. 2. Postoperative hemorrhage within the operative cavity as well as supratentorial and infratentorial pneumocephalus. 3. Slight decrease in size of the lateral and third ventricles. Approved by Jose Spence M.D. on 10/15/2015 8:55 AM By my electronic signature, I attest that I have personally reviewed the images for this examination and formulated the interpretations and opinions expressed in this report Finalized by ALFREDO ENGLAND M.D. on 10/15/2015 11:20 AM. Dictated by Jose Spence M.D. on 10/15/2015 8:51 AM. LACTIC ACID (BG - RAPID LACTATE) (10/14/2015 6:45 PM) Component Value Range Lactic Acid,BG 0.8 0.5-2.0 MMOL/L POTASSIUM, BG (10/14/2015 6:45 PM) Component Value Range Potassium 4.1 3.5-5.1 MMOL/L Specimen Blood SODIUM,BG (10/14/2015 6:45 PM) Component Value Range Sodium 134 (L) 137-147 MMOL/L Specimen Blood IONIZED CALCIUM,BG (10/14/2015 6:45 PM) Component Value Range Ionized Calcium 1.12 1.0-1.3 MMOL/L Specimen Blood GLUCOSE,BG (10/14/2015 6:45 PM) Component Value Range Glucose 157 (H) 70-100 MG/DL Specimen Blood HEMOGLOBIN & HEMATOCRIT, BG (10/14/2015 6:45 PM) Component Value Range Hemoglobin BG 11.4 (L) 12.0-15.0 GM/DL Hematocrit BG 35.2 (L) 36-45 % Specimen Blood SURGICAL PATHOLOGY (10/14/2015 5:52 PM) Component Value Range PATHOLOGY REPORT THE [facility] [email or web address] Asaf Hayes MD, PhD, Director of Anatomic Pathology Department of Pathology and Laboratory Medicine [address] [place] [id number] Surgical Pathology Office: [phone] SURGICAL PATHOLOGY REPORT NAME: LEVI OZUNA SURG PATH #: [id number] MR #: [id number] SPECIMEN CLASS: SR BILLING #: [id number] ALT ID #: LOCATION: [facility] DATE OF PROCEDURE: 10/14/2015 AGE: 50 SEX: F DATE RECEIVED: 10/14/2015 : 1965 TIME RECEIVED: 17:52 PHYSICIAN: ELEONORA COLE DATE OF REPORT: 10/25/2015 COPY TO: DATE OF PRINTIN10/25/2015 ################################################## ###################### Final Diagnosis: Suboccipital craniotomy for resection of mass: A. (Brain), cerebellar tumor: CARCINOMA, CONSISTENT WITH METASTASIS B. (Bone), cervical 1 bone: BONE WITH TRILINEAGE MARROW C. (Brain), cerebellar tumor: CARCINOMA, CONSISTENT WITH METASTASIS, WITH FOCAL INFILTRATION OF CHOROID PLEXUS D. (Brain), cerebellar tumor CUSA sock: FRAGMENTS OF TUMOR, CONSISTENT WITH METASTATIC CARCINOMA (SEE COMMENT) Comment: Together with the clinical history, the histological and immunohistochemical results (GATA3 and mammoglobulin expression in tumor cells) is compatible with metastatic mammary carcinoma. Attestation: By this signature, I attest that I have personally formulated the final interpretation expressed in this report and that the above diagnosis is based upon my examination of the slides and/or other material indicated in this report. +++Electronically Signed Out By+++ ksw/10/15/2015 Interpreted by: Kat Lorenz MD, Attending Physician Marly Markham MD, Attending Physician10/25/2015 ################################################## ###################### Material Received: A: cerebellar tumor B: cervical 1 bone C: cerebellar tumor D: cerebellar tumor cusa sock History: 50-year-old woman with a past medical history of breast cancer. Microscopic Description: Block A2: GATA3: strong and diffuse nuclear staining in tumor cells; mammoglobulin: positive expression in tumor cells; CK 20: negative; CK 7: rare wisps of staining noted. In block C2, the choroid plexus contains carcinoma cells, some of which appear within the epithelial lining, further examined with immunomarkers to examine the relationship to the plexus. GATA3-positive cells and mammoglobulin-positive cells are seen in and around the choroid plexus, although plexus cells are negative with these markers. CAM 5.2 lightly stains the plexus while the surrounding carcinoma cells stain much more robustly. Focal staining with CK 7 is noted. Synaptophysin stains the choroid plexus but not the metastatic carcinoma clusters. GFAP highlights ependymal-plexus cells. Gross Description: A. Received fresh, labeled with the patient's name and "cerebellar tumor" is an unoriented, irregular, rolon-white portion of soft tissue measuring 1.8 x 1.5 x 1.3 cm. The specimen is sectioned to reveal a rolon-white cut surface. The specimen is entirely submitted for frozen and permanent sections as follows: A1FS Frozen section remnant. A2 Remaining soft tissue. ([facility]) B. Received in formalin, labeled with the patient's name and "cervical 1 bone" are two portions of white-rolon bony tissue measuring 2.0 x 1.3 x 0.5 cm and 2.7 x 2.5 x 0.5 cm. One aspect of the bone is roughened with possible adherent soft tissue. The opposing aspect is smooth and white-rolon. The specimen is decalcified prior to sectioning, and insurance service representative sections are submitted in cassettes B1-B3. (ma) C. Received in formalin, labeled with the patient's name and "cerebellar tumor" is a 3.2 x 2.5 x 2.4 cm portion of red-brown firm tissue. Additionally present in the container are two separate additional portions of red-brown soft tissue measuring 1.1 x 0.5 x 0.3 cm and 1.1 x 0.7 x 0.5 cm. The largest portion of tissue is inked entirely black and sectioned to reveal a white-rolon to red, variegated cut surface. [employer] sections of this portion of tissue are submitted in cassettes C1 and C2. The entire two smaller portions of tissue are submitted in cassette C3 without sectioning. (ma) D. Received in formalin, labeled with the patient's name and "cerebellar tumor CUSA sock" is a 2.5 x 2.0 x 0.6 cm aggregate of minute white-rolon soft tissue fragments. The specimen fragments range from 0.1 cm to 0.3 cm in greatest dimension. Approximately 50% of the specimen is submitted in cassette D1. (ma) [facility]/10/14/2015 Intraoperative Consultation: (Brain), A1FS, lesional tissue, "cerebellar tumor", biopsy: Metastatic carcinoma. Marly Markham MD, Attending Physician If immunohistochemical stains and/or in situ hybridization are cited in this report, the performance characteristics were determined by the Department of Pathology and Laboratory Medicine of the [facility] ([employer]) in compliance with CLIA'88 regulations. Some of these tests rely on the use of "analyte specific reagents" and are subject to specific labeling requirements by the FDA. Known positive and negative control tissues demonstrate appropriate staining. This testing was developed by the Department of Pathology and Laboratory Medicine of the [facility]. It has not been cleared or approved by the FDA. The FDA has determined that such clearance or approval is not necessary. ANESTHESIA ARTERIAL LINE INSERTION (10/14/2015 4:43 PM) Vj Rosado MD 10/14/20154:43 PM Anesthesia Procedure: Arterial Line Placement A-LINE INSERTION Patient location: OR Staff Anesthesiologist: BRIAN CARVER Performed by: ADDI ROSADO Preprocedure checklist performed: 2 patient identifiers, risks & benefits discussed, patient evaluated, timeout performed, consent obtained and patient being monitored Sterile technique: - Proper hand washing - Cap, mask - Sterile gloves - Skin prep for antisepsis Arterial Line Procedure Patient sedated: yes (see MAR) Sedation type: general; Artery prepped with chlorhexidine; skin prep agent completely dried prior to procedure. Location: dorsalis pedis artery Technique: palpation Needle gauge: 20 G Number of attempts: 3 (Initial easy placement L radial, did not draw back after going prone. Then L foot, which also would not draw after placement, then successful R foot) Procedure Outcome Catheter secured with adhesive dressing applied Events: no complications noted during insertion and skin intact, warm, and dry Observation: pt tolerated well BLOOD TYPE CONFIRMATION - ORDER ONLY IF REQUESTED BY LAB (10/13/2015 11:56 PM) Component Value Range ABO/RH(D) O POS Specimen Blood
--- NOTE | 2016-01-17 14:19 | Therapy Group Daily Note ---
Therapy Daily Group Note Patient Education Topic Exercises, Other List Below Exercises LE Seated Exercise, ROM, UE Exercise, Other Other/Notes Pt. participated in group activity this date. Began session with naming name, and something made from snow. Pt. then participated in education regarding illness/disease prevention, stroke prevention, and Armand trivia for socialization. Pt. able to participate well and engaged in activity. Pt. taken back to room after treatment and all needs met. Start Time: 13:00 Stop Time: 14:00 Total Billed Treatment Time: 60 Total Billed Treatment 1, GRP GUILLERMO MIGUEL OT Jan 17, 2016 14:18
--- NOTE | 2016-02-04 11:16 | Occupational Ther Daily Note ---
OT Current Status-Daily Note Appearance Alert, cooperative Mental Status/Objective Functional [place] Measure 0=Not Assessed/NA 4=Minimal Assistance 1=Total Assistance 5=Supervision or Setup 2=Maximal Assistance 6=Modified [place] 3=Moderate Assistance 7=Complete [place] ADL-Treatment Functional [place] Measure 0=Not Assessed/NA 4=Minimal Assistance 1=Total Assistance 5=Supervision or Setup 2=Maximal Assistance 6=Modified [place] 3=Moderate Assistance 7=Complete IndependenceIRFPAI Quality Coding Scale 6 Independent with activity with or without an assistive device 5 Patient requires set up or clean up by helper. Patient completes activity by themselves 4 Supervision or touching assist (CGA). [place] provide cues , steadying assist 3 The helper provides less than half the effort to complete the activity 2 The helper provides more than half the effort to complete the activity 1 Dependent. The helper does all the effort to complete an activity 7 Patient refused to complete or attempt activity 9 The patient did not perform the activity before the current illness or injury 88 Not attempted due to Medical conditions or safety concerns OT Short Term Goals Short Term Goals 1=Demonstrate adherence to instructed precautions during ADL tasks. 2=Patient will verbalize/demonstrate understanding of assistive devices/ modifications for ADL. 3=Patient will improve strength/tolerance for activity to enable patient to perform ADL's. OT Mcfp Goals Android Architect Goals 1=Demonstrate adherence to instructed precautions during ADL tasks. 2=Patient will verbalize/demonstrate understanding of assistive devices/ modifications for ADL. 3=Patient will improve strength/tolerance for activity to enable patient to perform ADL's. OT Education/Plan Treatment Plan/Plan of Care Patient would benefit from OT for education, treatment and training to promote independence in ADL's, mobility, safety and/or upper extremity function for ADL' s. CONCEPCIÓN BAKER OT Feb 04, 2016 11:16 OT Education/Plan Treatment Plan/Plan of Care Patient would benefit from OT for education, treatment and training to promote independence in ADL's, mobility, safety and/or upper extremity function for ADL' s. CONCEPCIÓN BAKER OT Feb 04, 2016 11:16
[2016-02-18 11:53] LABS: BASOPHILS % (AUTO) 0 % (0-10); EOSINOPHILS % (AUTO) 0 % (0-10); LYMPHOCYTES # (AUTO) 0.7 X 10^3 (1.0-4.0); LYMPHOCYTES % (AUTO) 4 % (12-44); MEAN CORPUSCULAR HEMOGLOBIN 29 PG (25-34); MEAN CORPUSCULAR HGB CONC 33 G/DL (32-36); MEAN CORPUSCULAR VOLUME 91 FL (80-99); MEAN PLATELET VOLUME 8.9 FL (7.4-10.4); MONOCYTES # (AUTO) 1.1 X 10^3 (0.0-1.0); MONOCYTES % (AUTO) 7 % (0-12); NEUTROPHILS # (AUTO) 14.6 X 10^3 (1.8-7.8); NEUTROPHILS % (AUTO) 89 % (42-75); PLATELET COUNT 333 10^3/uL (130-400); RED BLOOD COUNT 3.97 10^6/uL (4.35-5.85); RED CELL DISTRIBUTION WIDTH 16.3 % (10.0-14.5); WHITE BLOOD COUNT 16.4 10^3/uL (4.3-11.0)
[2016-02-18 12:19] LABS: ALANINE AMINOTRANSFERASE 25 U/L (0-55); ALBUMIN 4.1 G/DL (3.2-4.5); ANION GAP 11 MMOL/L (5-14); ASPARTATE AMINO TRANSFERASE 15 U/L (5-34); BILIRUBIN,TOTAL 0.3 MG/DL (0.1-1.0); BLOOD UREA NITROGEN 17 MG/DL (7-18); BUN/CREATININE RATIO 27; CALCIUM 9.8 MG/DL (8.5-10.1); CARBON DIOXIDE 25 MMOL/L (21-32); CHLORIDE 100 MMOL/L (98-107); CREATININE SERUM 0.63 MG/DL (0.60-1.30); GFR ESTIMATED > 60; GLUCOSE 117 MG/DL (70-105); POTASSIUM 4.2 MMOL/L (3.6-5.0); SODIUM 136 MMOL/L (135-145); TOTAL PROTEIN 7.3 G/DL (6.4-8.2)
[2016-03-06 13:12] LABS: BASOPHILS % (AUTO) 0 % (0-10); EOSINOPHILS # (AUTO) 0.2 10^3/uL (0.0-0.3); EOSINOPHILS % (AUTO) 2 % (0-10); LYMPHOCYTES # (AUTO) 1.3 X 10^3 (1.0-4.0); LYMPHOCYTES % (AUTO) 15 % (12-44); MEAN CORPUSCULAR HEMOGLOBIN 30 PG (25-34); MEAN CORPUSCULAR HGB CONC 33 G/DL (32-36); MEAN CORPUSCULAR VOLUME 91 FL (80-99); MEAN PLATELET VOLUME 9.1 FL (7.4-10.4); MONOCYTES # (AUTO) 0.9 X 10^3 (0.0-1.0); MONOCYTES % (AUTO) 10 % (0-12); NEUTROPHILS % (AUTO) 72 % (42-75); PLATELET COUNT 284 10^3/uL (130-400); RED BLOOD COUNT 4.04 10^6/uL (4.35-5.85); RED CELL DISTRIBUTION WIDTH 15.7 % (10.0-14.5); WHITE BLOOD COUNT 8.4 10^3/uL (4.3-11.0)
[2016-03-06 13:40] LABS: ERYTHROCYTE SEDIMENTATION RATE 85 MM/HR (0-30)
[2016-03-06 13:43] LABS: ALANINE AMINOTRANSFERASE 20 U/L (0-55); ALBUMIN 4.1 G/DL (3.2-4.5); ANION GAP 9 MMOL/L (5-14); ASPARTATE AMINO TRANSFERASE 15 U/L (5-34); BILIRUBIN,TOTAL 0.4 MG/DL (0.1-1.0); BLOOD UREA NITROGEN 17 MG/DL (7-18); BUN/CREATININE RATIO 24; CALCIUM 10.2 MG/DL (8.5-10.1); CARBON DIOXIDE 30 MMOL/L (21-32); CHLORIDE 100 MMOL/L (98-107); CREATININE SERUM 0.72 MG/DL (0.60-1.30); GFR ESTIMATED > 60; GLUCOSE 102 MG/DL (70-105); SODIUM 139 MMOL/L (135-145); TOTAL PROTEIN 7.5 G/DL (6.4-8.2)
[~2016-03-17 10:47] MED LIST changes: -ACET325T49 JT; -ACET650S15 PR; -AMYLASE PO; -BARIUM SUSPENSION 2.1% (VANILLA SILQ) 450 ML PO ONE; -BISA10SU12 PR; -CATHETER FLUSH 10 ML SYR IV PRN; +FULVESTRANT 250 MG/5 ML SYR (CANCER CENTER) IM SCH; -IOHEXOL 350 MG/ML 100 ML (OMNIPAQUE 350) VIAL IV ONE; -LIPASE PO; -LORA2ORA PEG; -MORP100S3 PEG; -PROTEASE PO; +RT-ALBUTEROL/IPRATROPIUM 3 ML (DUONEB) VIAL ONE; -ZINC28PA TOP
[2016-03-17 11:05] LABS: BASOPHILS % (AUTO) 0 % (0-10); EOSINOPHILS # (AUTO) 0.2 10^3/uL (0.0-0.3); EOSINOPHILS % (AUTO) 2 % (0-10); LYMPHOCYTES # (AUTO) 1.2 X 10^3 (1.0-4.0); LYMPHOCYTES % (AUTO) 10 % (12-44); MEAN CORPUSCULAR HEMOGLOBIN 29 PG (25-34); MEAN CORPUSCULAR HGB CONC 32 G/DL (32-36); MEAN CORPUSCULAR VOLUME 92 FL (80-99); MEAN PLATELET VOLUME 9.2 FL (7.4-10.4); MONOCYTES % (AUTO) 8 % (0-12); NEUTROPHILS # (AUTO) 9.6 X 10^3 (1.8-7.8); NEUTROPHILS % (AUTO) 80 % (42-75); PLATELET COUNT 337 10^3/uL (130-400); RED BLOOD COUNT 4.28 10^6/uL (4.35-5.85); RED CELL DISTRIBUTION WIDTH 15.2 % (10.0-14.5)
[2016-03-17 11:38] LABS: ALANINE AMINOTRANSFERASE 16 U/L (0-55); ALBUMIN 4.3 G/DL (3.2-4.5); ANION GAP 11 MMOL/L (5-14); ASPARTATE AMINO TRANSFERASE 15 U/L (5-34); BILIRUBIN,TOTAL 0.5 MG/DL (0.1-1.0); BLOOD UREA NITROGEN 19 MG/DL (7-18); BUN/CREATININE RATIO 25; CALCIUM 10.7 MG/DL (8.5-10.1); CARBON DIOXIDE 29 MMOL/L (21-32); CHLORIDE 101 MMOL/L (98-107); CREATININE SERUM 0.77 MG/DL (0.60-1.30); GFR ESTIMATED > 60; GLUCOSE 91 MG/DL (70-105); POTASSIUM 4.8 MMOL/L (3.6-5.0); SODIUM 141 MMOL/L (135-145); TOTAL PROTEIN 7.7 G/DL (6.4-8.2)
[2016-03-20 07:38] LABS: CALCIUM PARA THYROID HORMONE 10.5 mg/dL (8.5-10.5)
== END 2016-03-21 | disposition home or self-care (01) ==
LOC: ONC 10:47
PROVIDERS: ATTEND Internal Medicine Hematology & Oncology
DX: C50.911 Malignant neoplasm of unspecified site of right female breast (principal); C77.3 Secondary and unspecified malignant neoplasm of axilla and upper limb lymph nodes; Z17.0 Estrogen receptor positive status [ER+]; Z90.11 Acquired absence of right breast and nipple; Z79.899 Other long term (current) drug therapy
CPT/HCPCS: 36415; 80053; 83970; 85025; 85652; 86300; 96401; 96402; 99213

== ENCOUNTER → 2016-04-25 | Outpatient (CLI) | payer BC ==
[~2016-04-25] MED LIST changes: +ACET325T49 JT; +ACET650S15 PR; +AMYLASE PO; +BISA10SU12 PR; -FULVESTRANT 250 MG/5 ML SYR (CANCER CENTER) IM SCH; +LIPASE PO; +LORA2ORA PEG; +MORP100S3 PEG; +PROTEASE PO; -RT-ALBUTEROL/IPRATROPIUM 3 ML (DUONEB) VIAL ONE; +ZINC28PA TOP
--- OUTSIDE RECORDS SUMMARY | 2016-04-25 14:04 | XMS REPORT | Continuity of Care Document ---
Author Author [facility] Organization [facility] Address Unknown Phone Unavailable Care Team Providers Care Shed Hand Name Role Phone Ewa Mathias PCP [phone] Source Comments Some departments are not documenting in the electronic medical record. If you do not see the information that you expected, contact Release of Information in the Health Information Management department at [phone] for further assistance in locating additional records.[facility] Active Allergies and Adverse Reactions Allergen [...] March 2014. Right breast sono-guided biopsy 04/29/14 ([place], [place]) revealed, grade 3, HER2 positive invasive ductal carcinoma. PET scan 05/12/14 ([place], [place]) revealed a 2.5 cm hypermetabolic mass [...] mastectomy/SLNB/TE on 11/05/14. She finished radiation in [place], [place] in February 2015. She started Examestane in February 2015. PATHOLOGY: Tumor: 2.4 cm tumor bed with no residual tumor Margins Free From Tumor: No ER: positive TN: negative Her 2: positive Grade: 3 Lymph Nodes: 0/2 LVSI: no Extranodal extension: no BREAST IMAGING: Mammogram: -- Right diagnostic mammogram 04/23/14 ([place], [place]) revealed distortion of the breast tissue in the upper outer quadrant with several areas of abnormal calcifications. -- Right diagnostic mammogram 08/17/14 () revealed a clip at 9:30 with surrounding pleomorphic calcifications. The calcifications panned 7 cm and extended to approximately 1 cm FTN. Ultrasound: -- Right breast ultrasound 04/23/14 ([place], [place]) revealed 2.3 cm hypoechoic mass corresponding [...] axillary adenopathy. MEDICAL ONCOLOGY: Dr. Esme Mathias ([place], [place]) PRESENT THERAPY: Neoadjuvant AC x 4 [...] 2004 Colorectal Cancer 2014 Screening Influenza Vaccine 10/13/2016 Results from Last 3 Months Not on file
--- NOTE | 2016-04-26 14:18 | Diagnostic Imaging Report ---
EXAMINATION: PET-CT TECHNIQUE: Serum glucose level at the time of the study is: 104 mg/dL. 12.4 mCi of FDG was administered intravenously followed by obtaining PET images with corresponding noncontrast CT scan images. The CT scan was performed for anatomic correlation and attenuation correction and was not performed according to the diagnostic protocol of the areas covered. The scan was performed from the head to mid thighs. INDICATION: Breast cancer. COMPARISON: CT chest and abdomen from 03/09/16. FINDINGS: There are postoperative changes seen in the posterior fossa. There is no suspicious hypermetabolism seen in the head. There is a left tonsillar mass measuring 1.7 x 1 cm and is associated with mild to moderate hypermetabolism with maximum SUV of 6. The associated soft tissue thickening is asymmetric in the oropharynx and is concerning for underlying neoplasm. There is mild FDG activity, expected around the tracheostomy site. In the chest, there is mild increased hypermetabolic activity in the left lung base which is associated with groundglass opacities in a patchy pattern in the inferior lingula and left lower lobe. The CT scan appearance is in favor of an infectious or inflammatory pneumonitis. The opacities do have some nodular components, however, and followup exams are recommended. When compared to 03/09/2016 CT scan, there are increased pulmonary opacities in the left lung base. Right breast implant is again seen without change. No hypermetabolic mediastinal or hilar lymph nodes or masses. In the abdomen and pelvis: There is expected urinary tract excretion of the tracer with otherwise no significant hypermetabolic mass seen. IMPRESSION: 1. Development of a moderately hypermetabolic mass in the left tonsillar region concerning for neoplastic etiology. 2. Indeterminate patchy areas of hypermetabolism in the left lung base associated with predominantly groundglass opacities with minimal nodular components on the localizer CT scan, favored to be related to infectious or inflammatory pneumonitis. Followup CT chest in 2-3 months is recommended to reevaluate. Dictated by: Dictated on workstation # [id number]
== END ==
LOC: RAD 14:01
PROVIDERS: ATTEND Internal Medicine Hematology & Oncology
DX: C50.411 Malignant neoplasm of upper-outer quadrant of right female breast (principal); C79.31 Secondary malignant neoplasm of brain; M14.8 Arthropathies in other specified diseases classified elsewhere; Z78.0 Asymptomatic menopausal state

== ENCOUNTER 2016-05-11 12:38 | Outpatient (RCR) | payer BC ==
--- OUTSIDE RECORDS SUMMARY | 2016-04-03 11:13 | XMS REPORT | Continuity of Care Document ---
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 If you do not see the information that you expected, contact Release of Information in the Health Information Management department at [phone] for further assistance in locating additional records.[facility] Active Allergies and Adverse Reactions Allergen Noted [...] March 2014. Right breast sono-guided biopsy 04/29/14 ([place], [place]) revealed, grade 3, HER2 positive invasive ductal carcinoma. PET scan 05/12/14 ([place], [place]) revealed a 2.5 cm hypermetabolic mass [...] mastectomy/SLNB/TE on 11/05/14. She finished radiation in [place], [place] in February 2015. She started Examestane in February 2015. PATHOLOGY: Tumor: 2.4 cm tumor bed with no residual tumor Margins Free From Tumor: No ER: positive RI: negative Her 2: positive Grade: 3 Lymph Nodes: 0/2 LVSI: no Extranodal extension: no BREAST IMAGING: Mammogram: -- Right diagnostic mammogram 04/23/14 ([place], [place]) revealed distortion of the breast tissue in the upper outer quadrant with several areas of abnormal calcifications. -- Right diagnostic mammogram 08/17/14 () revealed a clip at 9:30 with surrounding pleomorphic calcifications. The calcifications panned 7 cm and extended to approximately 1 cm FTN. Ultrasound: -- Right breast ultrasound 04/23/14 ([place], [place]) revealed 2.3 cm hypoechoic mass corresponding [...] axillary adenopathy. MEDICAL ONCOLOGY: Dr. Esme Mathias ([place], [place]) PRESENT THERAPY: Neoadjuvant AC x 4 [...]
[2016-04-03 12:36] LABS: ANION GAP 13 MMOL/L (5-14); BLOOD UREA NITROGEN 14 MG/DL (7-18); BUN/CREATININE RATIO 21; CALCIUM 9.9 MG/DL (8.5-10.1); CARBON DIOXIDE 28 MMOL/L (21-32); CHLORIDE 99 MMOL/L (98-107); CREATININE SERUM 0.68 MG/DL (0.60-1.30); GFR ESTIMATED > 60; GLUCOSE 97 MG/DL (70-105); POTASSIUM 4.1 MMOL/L (3.6-5.0); SODIUM 140 MMOL/L (135-145)
[2016-04-13 14:07] LABS: BASOPHILS % (AUTO) 0 % (0-10); EOSINOPHILS # (AUTO) 0.2 10^3/uL (0.0-0.3); EOSINOPHILS % (AUTO) 2 % (0-10); LYMPHOCYTES # (AUTO) 1.4 X 10^3 (1.0-4.0); LYMPHOCYTES % (AUTO) 15 % (12-44); MEAN CORPUSCULAR HEMOGLOBIN 29 PG (25-34); MEAN CORPUSCULAR HGB CONC 32 G/DL (32-36); MEAN CORPUSCULAR VOLUME 88 FL (80-99); MEAN PLATELET VOLUME 8.5 FL (7.4-10.4); MONOCYTES # (AUTO) 0.9 X 10^3 (0.0-1.0); MONOCYTES % (AUTO) 10 % (0-12); NEUTROPHILS # (AUTO) 6.7 X 10^3 (1.8-7.8); NEUTROPHILS % (AUTO) 73 % (42-75); PLATELET COUNT 380 10^3/uL (130-400); RED BLOOD COUNT 4.46 10^6/uL (4.35-5.85); RED CELL DISTRIBUTION WIDTH 14.9 % (10.0-14.5); WHITE BLOOD COUNT 9.2 10^3/uL (4.3-11.0)
[2016-04-13 14:48] LABS: ALANINE AMINOTRANSFERASE 21 U/L (0-55); ANION GAP 14 MMOL/L (5-14); ASPARTATE AMINO TRANSFERASE 21 U/L (5-34); BILIRUBIN,TOTAL 0.4 MG/DL (0.1-1.0); BLOOD UREA NITROGEN 16 MG/DL (7-18); BUN/CREATININE RATIO 22; CALCIUM 10.2 MG/DL (8.5-10.1); CARBON DIOXIDE 25 MMOL/L (21-32); CHLORIDE 99 MMOL/L (98-107); CREATININE SERUM 0.73 MG/DL (0.60-1.30); GFR ESTIMATED > 60; GLUCOSE 92 MG/DL (70-105); POTASSIUM 4.3 MMOL/L (3.6-5.0); SODIUM 138 MMOL/L (135-145); TOTAL PROTEIN 7.5 G/DL (6.4-8.2)
[~2016-05-11 12:38] MED LIST changes: -ACET325T49 JT; -ACET650S15 PR; -AMYLASE PO; -BISA10SU12 PR; +FULVESTRANT 250 MG/5 ML SYR (CANCER CENTER) IM SCH; -LIPASE PO; -LORA2ORA PEG; -MORP100S3 PEG; -PROTEASE PO; -ZINC28PA TOP
[2016-05-11 13:11] LABS: BASOPHILS % (AUTO) 0 % (0-10); EOSINOPHILS # (AUTO) 0.3 10^3/uL (0.0-0.3); EOSINOPHILS % (AUTO) 4 % (0-10); LYMPHOCYTES % (AUTO) 11 % (12-44); MEAN CORPUSCULAR HEMOGLOBIN 29 PG (25-34); MEAN CORPUSCULAR HGB CONC 31 G/DL (32-36); MEAN CORPUSCULAR VOLUME 93 FL (80-99); MEAN PLATELET VOLUME 9.9 FL (7.4-10.4); MONOCYTES # (AUTO) 0.9 X 10^3 (0.0-1.0); MONOCYTES % (AUTO) 10 % (0-12); NEUTROPHILS % (AUTO) 76 % (42-75); PLATELET COUNT 197 10^3/uL (130-400); RED BLOOD COUNT 4.39 10^6/uL (4.35-5.85); RED CELL DISTRIBUTION WIDTH 15.6 % (10.0-14.5); WHITE BLOOD COUNT 9.3 10^3/uL (4.3-11.0)
[2016-05-11 13:42] LABS: ALANINE AMINOTRANSFERASE 44 U/L (0-55); ALBUMIN 3.9 G/DL (3.2-4.5); ANION GAP 10 MMOL/L (5-14); ASPARTATE AMINO TRANSFERASE 35 U/L (5-34); BILIRUBIN,TOTAL 0.6 MG/DL (0.1-1.0); BLOOD UREA NITROGEN 36 MG/DL (7-18); BUN/CREATININE RATIO 42; CALCIUM 11.5 MG/DL (8.5-10.1); CARBON DIOXIDE 31 MMOL/L (21-32); CHLORIDE 109 MMOL/L (98-107); CREATININE SERUM 0.86 MG/DL (0.60-1.30); GFR ESTIMATED > 60; GLUCOSE 112 MG/DL (70-105); POTASSIUM 4.2 MMOL/L (3.6-5.0); SODIUM 150 MMOL/L (135-145)
[2016-05-11] MEDS ORDERED: ACET325T49 JT (15:57)
[2016-05-24] MEDS ORDERED: MORP100S3 PEG (09:08)
[2016-05-24] MEDS ORDERED: ACET650S15 PR (09:08)
[2016-05-24] MEDS ORDERED: LIPASE PO (09:08)
[2016-05-24] MEDS ORDERED: PROTEASE PO (09:08)
[2016-05-24] MEDS ORDERED: ZINC28PA TOP (09:08)
[2016-05-24] MEDS ORDERED: AMYLASE PO (09:08)
[2016-05-24] MEDS ORDERED: BISA10SU12 PR (09:08)
[2016-05-24] MEDS ORDERED: LORA2ORA PEG (09:08)
== END 2016-07-02 | disposition home or self-care (01) ==
LOC: ONC 12:38
PROVIDERS: ATTEND Internal Medicine Hematology & Oncology
DX: C50.411 Malignant neoplasm of upper-outer quadrant of right female breast (principal); C79.31 Secondary malignant neoplasm of brain; C77.3 Secondary and unspecified malignant neoplasm of axilla and upper limb lymph nodes; E87.0 Hyperosmolality and hypernatremia; E83.52 Hypercalcemia; Z17.0 Estrogen receptor positive status [ER+]; Z90.11 Acquired absence of right breast and nipple; Z79.899 Other long term (current) drug therapy
CPT/HCPCS: 36415; 80048; 80053; 85025; 86300; 96402; 99213

== ENCOUNTER 2016-05-11 14:26 | Inpatient (IN) | payer BC ==
[~2016-05-11 14:26] MED LIST changes: -FULVESTRANT 250 MG/5 ML SYR (CANCER CENTER) IM SCH
[2016-05-11] MEDS ORDERED: ONDANSETRON 4 MG/2 ML (SDV) Z0FRAN IV PRN (15:00)
--- NOTE | 2016-05-11 15:19 | History & Physicial ---
History of Present Illness History of Present Illness Reason for visit/HPI Levi Alexander is a 51-year-old female who has T2 N3 M0, Stage IIIC HER-2 linda positive Right Breast Cancer who came in to the cancer center for interim visit because of marked worsening of her overall function. She had a PET scan on 04/25/16 which showed hyper metabolism in the left tonsil raising question of neoplastic involvement and in her left lower lung that was thought to be inflammatory or infectious. Her accompanies her today and relates that Levi has been increasingly confused. Her motor function has deteriorated tremendously and she is no longer able to move her legs or lift her hand to her mouth consistently. Her states she is intermittently hallucinating. reports that the sufwjg-at-rxb is no longer able to take care of her needs in her home. He has to work full-time. Additionally patient has been having 5-6 stools per day that are foul-smelling. She was seen last week in a home visit by Dr. Mathias because of difficulty with urinating. An indwelling catheter was placed and urine has been cloudy pre-and post catheter placement. states she is also been running fevers intermittently as high as 101. She is 99.9 in clinic today. Laboratory review shows that her sodium is up to 150 calcium 11.5 and BUN is elevated at 36. Patient is being referred for admission for further evaluation, treatment and probable mcfp placement upon discharge. Prognosis is poor overall. is aware of this but wants to do imaging studies to see where she is currently standing with respect to her disease progression in order to prepare himself and her daughters. Her tracheostomy has been removed since her last visit and Dr. Goss is planning a left tonsillectomy because of the increased uptake seen on the PET/ CT scan. Date of Admission May 11, 2016 at 14:26 I consulted on this patient on 05/11/16 15:12 Attending Physician Onesimo Huffman MD Admitting Physician Esme Mathias MD Consult Allergies and Home Medications Allergies Coded Allergies: Sulfa (Sulfonamide Antibiotics) (Verified Allergy, Intermediate, HIVES, ) nitrofurantoin (Verified Allergy, Intermediate, RASH, 02/03/16) Home Medications Acetaminophen 325 Mg Tablet, 325-650 MG JT Q6H PRN for PAIN, (Reported) TAKES 1-2 (325 MG) TABLETS Past Bulabrh-Eexvna-Dfvtfq Hx Patient Social History Marrital Status: 2nd Hand Smoke Exposure: No Recent Hopitalizations: Yes Immunizations Up To Date Tetanus Booster (TDap): Unknown Date of Pneumonia Vaccine: Dec 08, 1999 Seasonal Allergies Seasonal Allergies: Yes Surgeries HX Surgeries: Yes (brain tumor, mastectomy) Respiratory Hx Respiratory Disorders: Yes (trach) Cardiovascular Hx Cardiovascular Disorders: No Neurological Hx Neurological Disorders: Yes Neurological Disorders: Brain Tumor Reproductive System Hx Reproductive Disorders: No Sexually Transmitted Disease: No HIV/AIDS: No Female Reproductive Disorders: Denies Genitourinary Hx Genitourinary Disorders: Yes Gastrointestinal Hx Gastrointestinal Disorders: Yes (tube feeding ) Musculoskeletal Hx Musculoskeletal Disorders: Yes Endocrine Hx Endocrine Disorders: No HEENT HX ENT Disorders: Yes (cataract as a child) HEENT Disorders: Cataract Loss of Vision: Denies Hearing Impairment: Denies Cancer Hx Cancer: Yes Cancer: Breast Psychosocial Hx Psychiatric Problems: Yes Behavioral Health Disorders: Depression Integumentary HX Skin/Integumentary Disorder: No Blood Transfusions Hx Blood Disorders: No Adverse Reaction to a Blood Tr: No Family Medical History Significant Family History: Hypertension Family Hx: Hypertension 19 FATHER Myocardial infarction 19 FATHER Constitutional: malaise, weakness Gastrointestinal: diarrhea Genitourinary: dysuria Musculoskeletal: joint pain, muscle twitching, muscle weakness Psychiatric/Neurological: Weakness, Other (hallucinations, intermittent confusion;) Physical Exam Vital Signs Vital Sign - Last 12Hours 05/11/16 16:00 Temp 96.8 Pulse 104 Resp 20 B/P (MAP) 108/72 Pulse Ox 99 O2 Delivery Nasal Cannula O2 Flow Rate 2.00 Capillary Refill : General Appearance: Chronically ill HEENT: PERRL/EOMI Neck: Non Tender, Supple Respiratory: Crackles, Decreased Breath Sounds Cardiovascular: Regular Rate, Rhythm, No Edema, No JVD Gastrointestinal: Normal Bowel Sounds, Non Tender, Soft (Feeding tube in place) , Other Rectal: Deferred, Other (sacral decubitus present;) Back: Normal Inspection Extremity: Non Tender, No Calf Tenderness Neurologic/Psychiatric: Alert, Motor Weakness, Sensory Deficit, Other (unable to lift her lower extremities. 4/5 Weakness bilateral upper extremities.) Comments Chest Xray done 05/11/16:FINDINGS: The lungs demonstrate mildly prominent interstitial markings. The suggestion of scarring in the medial right upper lobe seen with no definitive change. This is stable from prior exam of 02/11/2016. There is a right-sided breast implant and surgical clips over the right chest seen. The heart size is normal. No effusion or pneumothorax Mediastinum and gissell appear unremarkable. IMPRESSION: No acute process. Assessment/Plan Assessment and Plan 1. Altered mental status progressive weakness-rule out tumor progression and/ or superimposed infection; 2. Progressive weakness-rule out tumor progression and/or superimposed infection; 3. Recurrent Hypercalcemia--normal PTH level on 03/17/16, and administer vigorous IV rehydration and recheck level; 4. Hypernatremia-administer IV rehydration 5. Hypoxemia-check chest x-ray and obtain sputum culture. 6 Metastatic Breast Cancer with Metastasis to Brain (large posterior fossa mass ); a. Status Post near complete resection at [facility] on ; b. Status Post Whole Brain Radiation, 3000 cGy administered from 12/21-01/04/16 c. 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 i.) History of recurrent Pseudomonas pneumonia; ii.) Bilateral vocal cord paralysis requiring prolonged tracheostomy <which was recently removed >and feeding tube placement; d. Faslodex 500 mg IM (days 1, 15, 29 and monthly thereafter) initiated 12/22/15 and last dose given on 04/13/16. 7. Overall prognosis is poor 8. DO NOT RESUSCITATE this patient 9. DVT prophylaxis-Enoxaparin 40mg daily. PLAN: 1. Admit on inpatient Medical Service. 2. Schedule CT scan he had with contrast in a.m. 3 administer IV hydration D5 half-normal saline and monitor sodium and electrolytes. 4. Stool for C. difficile 5. Urine culture and urinalysis, 6. Nasal cannula oxygen to maintain O2 saturation 90 % or greater; sputum culture and chest x-ray 7. Blood cultures 2 for fever spikes greater than or equal to 100.5. 8. Consult Dr. Esme Mathias. Problems: ONESIMO HUFFMAN MD May 11, 2016 15:19
[2016-05-11] MEDS ORDERED: IOHEXOL 350 MG/ML 100 ML (OMNIPAQUE 350) VIAL IV ONE (15:30)
[2016-05-11] MEDS ORDERED: CATHETER FLUSH 10 ML SYR IV PRN (15:30)
[2016-05-11] MEDS ORDERED: NS 100 ML (IVPB) BAG IV ONE (15:30)
[2016-05-11] MEDS ORDERED: ACET325T49 JT (15:57)
--- NOTE | 2016-05-11 15:59 | Diagnostic Imaging Report ---
EXAM: Postoperative radiograph of the chest. INDICATION: FINDINGS: The lungs demonstrate mildly prominent interstitial markings. The suggestion of scarring in the medial right upper lobe seen with no definitive change. This is stable from prior exam of 02/11/2016. There is a right-sided breast implant and surgical clips over the right chest seen. The heart size is normal. No effusion or pneumothorax Mediastinum and gissell appear unremarkable. IMPRESSION: No acute process. Dictated by: Dictated on workstation # [id number]
[2016-05-11 16:00] VITALS: BP 108/72
[2016-05-11 17:48] LABS: BILIRUBIN,URINE NEGATIVE (NEGATIVE); KETONES,URINE NEGATIVE (NEGATIVE); LEUKOCYTE ESTERASE ,URINE 3+ (NEGATIVE); NITRITE,URINE NEGATIVE (NEGATIVE); PH,URINE 6 (5-9); PROTEIN,URINE 3+ (NEGATIVE); UROBILINOGEN,URINE NORMAL (NORMAL)
[2016-05-11] MEDS: 1/2 NS W/KCL 20 MEQ/L 1,000 ML IV SCH ×2 (17:48→22:53)
[2016-05-11] MEDS: ENOXAPARIN 40 MG/0.4 ML (LOVENOX) SYR SC SCH (17:48)
[2016-05-11 17:55] LABS: WBC,URINE TNTC /HPF
[2016-05-11 17:56] LABS: CALCIUM OXALATE CRYSTALS,UR FEW /LPF
--- NOTE | 2016-05-11 18:14 | Diagnostic Imaging Report ---
PROCEDURE: CT head with and without contrast. TECHNIQUE: Multiple contiguous axial images were obtained through the brain before and after the administration of intravenous contrast. INDICATION: Confusion. History of brain metastasis. COMPARISON: CT head of 12/13/2015. FINDINGS: Stable postoperative changes of suboccipital craniectomy with tumor resection. There is cystic encephalomalacia within the tumor bed with surrounding white matter hypoattenuation, most compatible with post-treatment change and/or gliosis. There is no discrete residual enhancing mass lesion in the posterior fossa. No pathologic mass-like enhancement in the supratentorial brain. No hydrocephalus or midline shift. No hyperdense hemorrhage or space-occupying mass. No evidence of vasogenic edema in the supratentorial brain. No destructive calvarial lesion. The paranasal sinuses and mastoid air cells are clear. IMPRESSION: 1. Status post resection of posterior fossa tumor via suboccipital craniectomy. No evidence of recurrent/residual tumor. 2. No evidence of supratentorial metastases by CT. Dictated by: Dictated on workstation # [id number]
[2016-05-11 20:10] VITALS: BP 96/55
[2016-05-12] VITALS: BP 155/79
[2016-05-12] MEDS: 1/2 NS W/KCL 20 MEQ/L 1,000 ML IV SCH ×3 (01:30→21:32)
[2016-05-12 04:05] VITALS: BP 102/62
[2016-05-12 06:14] LABS: BASOPHILS % (AUTO) 0 % (0-10); EOSINOPHILS # (AUTO) 0.2 10^3/uL (0.0-0.3); EOSINOPHILS % (AUTO) 3 % (0-10); LYMPHOCYTES # (AUTO) 1.1 X 10^3 (1.0-4.0); LYMPHOCYTES % (AUTO) 13 % (12-44); MEAN CORPUSCULAR HEMOGLOBIN 29 PG (25-34); MEAN CORPUSCULAR HGB CONC 31 G/DL (32-36); MEAN CORPUSCULAR VOLUME 94 FL (80-99); MEAN PLATELET VOLUME 10.7 FL (7.4-10.4); MONOCYTES # (AUTO) 0.7 X 10^3 (0.0-1.0); MONOCYTES % (AUTO) 8 % (0-12); NEUTROPHILS # (AUTO) 6.3 X 10^3 (1.8-7.8); NEUTROPHILS % (AUTO) 76 % (42-75); PLATELET COUNT 163 10^3/uL (130-400); RED BLOOD COUNT 3.95 10^6/uL (4.35-5.85); RED CELL DISTRIBUTION WIDTH 15.3 % (10.0-14.5); WHITE BLOOD COUNT 8.3 10^3/uL (4.3-11.0)
[2016-05-12 06:34] LABS: ALANINE AMINOTRANSFERASE 34 U/L (0-55); ALBUMIN 3.4 G/DL (3.2-4.5); ANION GAP 10 MMOL/L (5-14); ASPARTATE AMINO TRANSFERASE 31 U/L (5-34); BILIRUBIN,TOTAL 0.8 MG/DL (0.1-1.0); BLOOD UREA NITROGEN 29 MG/DL (7-18); BUN/CREATININE RATIO 37; CALCIUM 10.7 MG/DL (8.5-10.1); CARBON DIOXIDE 29 MMOL/L (21-32); CHLORIDE 111 MMOL/L (98-107); CREATININE SERUM 0.79 MG/DL (0.60-1.30); GFR ESTIMATED > 60; GLUCOSE 95 MG/DL (70-105); POTASSIUM 4.1 MMOL/L (3.6-5.0); SODIUM 150 MMOL/L (135-145); TOTAL PROTEIN 7.1 G/DL (6.4-8.2)
--- NOTE | 2016-05-12 07:57 | Consultation ---
History of Present Illness History of Present Illness Patient Consulted On(rasheed/time) 05/12/16 07:57 Date of Admission Reason for Visit: METASTATIC BREAST CANCER, URINARY TRACT INFECTION History of Present Illness PT IS A 51 Y/O FEMALE WHO IS KNOWN TO ME FROM CLINIC AND PREVIOUS HOSPITALIZATIONS. SHE REPORTS THAT SHE JUST FEELS POORLY. SHE STATES THAT SHE HAS SOME COUGH, INCREASE IN SPUTUM, AND GENERALIZED NOT FEELING WELL. Allergies and Home Medications Allergies Coded Allergies: Sulfa (Sulfonamide Antibiotics) (Verified Allergy, Intermediate, HIVES, ) nitrofurantoin (Verified Allergy, Intermediate, RASH, 02/03/16) Home Medications Acetaminophen 325 Mg Tablet, 325-650 MG JT Q6H PRN for PAIN, (Reported) TAKES 1-2 (325 MG) TABLETS Past Igjhphv-Fcukrk-Jcjage Hx Patient Social History Alcohol Use: Denies Use Recreational Drug Use: No Smoking Status: Never a Smoker 2nd Hand Smoke Exposure: No Recent Foreign Travel: No Contact w/Someone Who Travel: No Recent Infectious Disease Expo: No Recent Hopitalizations: Yes Physical Abuse Screen: No Sexual Abuse: No Immunizations Up To Date Tetanus Booster (TDap): Unknown Date of Pneumonia Vaccine: Dec 08, 1999 Seasonal Allergies Seasonal Allergies: Yes Surgeries HX Surgeries: Yes (brain tumor, mastectomy) Respiratory Hx Respiratory Disorders: Yes (trach) Cardiovascular Hx Cardiac Disorders: No Neurological Hx Neurological Disorders: Yes Neurological Disorders: Brain Tumor (METASTATIC BREAST CANCER TO CEREBELLUM - POST OP CEREBELLAR TUMOR RESECTION AT IN 2016) Reproductive System : No Hx Reproductive Disorders: No Sexually Transmitted Disease: No HIV/AIDS: No Female Reproductive Disorders: Denies Genitourinary Hx Genitourinary Disorders: Yes Gastrointestinal Hx Gastrointestinal Disorders: Yes (tube feeding ) Musculoskeletal Hx Musculoskeletal Disorders: Yes Endocrine Hx Endocrine Disorders: No HEENT HX ENT Disorders: Yes (cataract as a child) HEENT Disorders: Cataract Loss of Vision: Denies Hearing Impairment: Denies Cancer Hx Cancer: Yes Cancer: Breast Psychosocial Hx Psychiatric Problems: Yes Behavioral Health Disorders: Depression Integumentary HX Skin/Integumentary Disorder: No Blood Transfusions Hx Blood Disorders: No Adverse Reaction to a Blood Tr: No Reviewed Nursing Assessment Reviewed/Agree w Nursing PMH: Yes Family Medical History Significant Family History: Heart Disease, Hypertension Family Medial History: Hypertension 19 FATHER Myocardial infarction 19 FATHER Review of Systems-General Constitutional: No chills, fever, malaise, weakness EENTM: other (DISCHARGE FROM TRACHEOSTOMY) Respiratory: cough, dyspnea on exertion, short of breath Cardiovascular: No chest pain, No palpitations Gastrointestinal: No abdominal pain Genitourinary: other (ROMAN) Musculoskeletal: muscle weakness Skin: no symptoms reported Psychiatric/Neurological: Anxiety, Depressed All Other Systems Reviewed Negative Unless Noted: Yes Physical Exam-General Problems Physical Exam Vital Signs Vital Sign - Last 12Hours 05/11/16 16:00 Temp 96.8 Pulse 104 Resp 20 B/P (MAP) 108/72 Pulse Ox 99 O2 Delivery Nasal Cannula O2 Flow Rate 2.00 Capillary Refill : General Appearance: WD/WN, moderate distress HEENT: other (DISCHARGE FROM TRACHEOSTOMY SITE) Neck: non-tender Respiratory: decreased breath sounds, rhonchi Cardiovascular: regular rate, rhythm, no edema, no gallop, no JVD, no murmur Gastrointestinal: normal bowel sounds, non tender, soft, no organomegaly, no pulsatile mass Back: normal inspection Extremities: normal range of motion, normal capillary refill 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 UTI- ON IV ANTIBIOTICS - MONITOR AND ADJUST MEDICATIONS BASED ON URINALYSIS. CONFUSION - STABILIZED - ANTICIPATE IMPROVEMENT WITH HYDRATION CONFUSION - DUE TO MEDICATION REACTION - OF REGLAN - IMPROVING WITH [employer] OF REGLAN LAST WEEK. MUSCLE WEAKNESS AND MALAISE - FAMILY NOT ABLE TO CARE FOR CONSUELO AT HOME - WILL NEED CORRECTION PLACEMENT ON DISCHARGE. METASTATIC BREAST CANCER - SUPPORTIVE CARE - PT HAS LESION ON TONSIL - NEED TO HAVE MICHAEL DISCUSSION WITH FAMILY ABOUT PT'S SITUATION - SHE IS TOO FRAIL TO HAVE SURGERY AT THIS TIME. Clinical Quality Measures DVT/VTE Risk/Contraindication: Risk Factor Score Per Nursin RFS Level Per Nursing on Admit: 4+=Very High BERTA TINOCO MD May 12, 2016 07:57
[2016-05-12 08:00] VITALS: BP 148/63
[2016-05-12] MEDS ORDERED: PATIENT MAY USE OWN MED,SINGLE MED PO SCH (08:00)
[2016-05-12] MEDS ORDERED: FLU TRIvalent (5 YOA+) 2016-17 (AFLURIA) 0.5 ML IM ONE (08:15)
[2016-05-12] MEDS: CEFEPIME INJECTION 2,000 MG in NS (IVPB) 50 ML IV SCH ×2 (09:24→20:35)
[2016-05-12] MEDS: LEVOFLOXACIN 750 MG/150 ML IV 150 ML IV SCH (10:52)
[2016-05-12] MEDS: ACETAMINOPHEN 325 MG TABLET/CAPLET (TYLENOL) JT PRN (11:24)
[2016-05-12 12:00] VITALS: BP 90/50
--- NOTE | 2016-05-12 13:32 | Progress Note (SOAP) ---
Subjective Subjective/Events-last exam Family at bedside. Patient is alert and answers simple questions appropriately. She denies pain at this time. Objective Exam Vital Signs Date Time Temp Pulse Resp B/P (MAP) Pulse Ox O2 Delivery O2 Flow Rate FiO2 05/12/16 08:00 99.2 101 20 148/63 93 Nasal Cannula 2.00 05/12/16 05:07 100.4 05/12/16 04:05 101.2 115 22 102/62 96 Nasal Cannula 2.00 05/12/16 00:00 100.1 122 22 155/79 94 Nasal Cannula 2.00 05/11/16 21:00 Nasal Cannula 2.00 05/11/16 20:34 99 Nasal Cannula 2.00 05/11/16 20:10 98.7 119 22 96/55 98 Nasal Cannula 2.00 05/11/16 17:48 96.8 05/11/16 16:00 96.8 104 20 108/72 99 Nasal Cannula 2.00 I & O 05/12/16 07:00 Intake Total 0 ml Output Total 1050 ml Balance -1050 ml Capillary Refill : General Appearance: No Apparent Distress, Chronically ill HEENT: PERRL/EOMI Respiratory: Crackles, Decreased Breath Sounds Cardiovascular: Regular Rate, Rhythm, No Edema, No JVD Gastrointestinal: normal bowel sounds, non tender, soft, other (NG tube in place) Extremity: Non Tender, No Calf Tenderness Neurologic/Psychiatric: Alert, Oriented x3, Motor Weakness Results Lab Laboratory Tests 05/12/16 05:43 Laboratory Tests 05/11/16 17:28: Urine Color YELLOW, Urine Clarity VERY CLOUDYH, Urine pH 6, Urine Specific [place] 1.015L, Urine Protein 3+H, Urine Glucose (UA) NEGATIVE, Urine Ketones NEGATIVE, Urine Nitrite NEGATIVE, Urine Bilirubin NEGATIVE, Urine Urobilinogen NORMAL, Urine Leukocyte Esterase 3+H, Urine RBC (Auto) 5+H, Urine RBC 25-50H, Urine WBC TNTCH, Urine Crystals PRESENTH, Urine Calcium Oxalate Crystals FEWH, Urine Bacteria LARGEH, Urine Casts NONE, Urine Mucus MODERATEH, Urine Culture Indicated YES 05/12/16 05:43: White Blood Count 8.3, Red Blood Count 3.95L, Hemoglobin 11.4L, Hematocrit 37, Mean Corpuscular Volume 94, Mean Corpuscular Hemoglobin 29, Mean Corpuscular Hemoglobin Concent 31L, Red Cell Distribution Width 15.3H, Platelet Count 163, Mean Platelet Volume 10.7H, Neutrophils (%) (Auto) 76H, Lymphocytes (%) (Auto) 13, Monocytes (%) (Auto) 8, Eosinophils (%) (Auto) 3, Basophils (%) (Auto) 0, Neutrophils # (Auto) 6.3, Lymphocytes # (Auto) 1.1, Monocytes # (Auto) 0.7, Eosinophils # (Auto) 0.2, Basophils # (Auto) 0.0, Sodium Level 150H, Potassium Level 4.1, Chloride Level 111H, Carbon Dioxide Level 29, Anion Gap 10, Blood Urea Nitrogen 29H, Creatinine 0.79, Estimat Glomerular Filtration Rate > 60, BUN /Creatinine Ratio 37, Glucose Level 95, Calcium Level 10.7H, Magnesium Level 2.0 , Total Bilirubin 0.8, Aspartate Amino Transf (AST/SGOT) 31, Alanine Aminotransferase (ALT/SGPT) 34, Alkaline Phosphatase 93, Total Protein 7.1, Albumin 3.4 Microbiology 05/11/16 C. difficile GDH Antigen & Toxins - Final, Resulted 05/11/16 Stool Culture, Resulted Pending 05/11/16 Gram Stain - Final, Resulted 05/11/16 Sputum Culture - Preliminary, Resulted Probable Pseudomonas 05/11/16 Urine Culture - Preliminary, Resulted Gram Negative Juan José Gram Positive Cocci In Chains Radiology CT scan head with contrast done in 05/11/16:IMPRESSION: 1. Status post resection of posterior fossa tumor via suboccipital craniectomy. No evidence of recurrent/residual tumor. 2. No evidence of supratentorial metastases by CT. Assessment/Plan Assessment/Plan Assess & Plan/Chief Complaint 1. Altered mental status progressive weakness-CT scan head with contrast showed no evidence of tumor recurrence. Urine culture is positive for gram- negative juan josé and sputum is positive for Pseudomonas which may be arising from colonization. a. If no improvement in weakness and in mental status will discuss with family need for lumbar puncture to rule out leptomeningeal metastases. Patient has metal within her breast implant according to her and can therefore not have an MRI which would be helpful to evaluate for this diagnosis. 2. UTI--Progressive weakness-likely exacerbated by patient's UTI however continue to suspect tumor progression with rising CEA to 7.29 and deteriorating clinical condition. 3. Recurrent Hypercalcemia--normal PTH level on 03/17/16, Calcium has improved to 10.7 with vigorous IV rehydration. Continue to monitor. 4. Hypernatremia-administer IV rehydration 5. Hypoxemia-check chest x-ray was no acute process however sputum is growing Pseudomonas which is likely arising from colonization. 6 Metastatic Breast Cancer with Metastasis to Brain (large posterior fossa mass ); a. Status Post near complete resection at [facility] on ; b. Status Post Whole Brain Radiation, 3000 cGy administered from 12/21-01/04/16 c. 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 i.) History of recurrent Pseudomonas pneumonia; ii.) Bilateral vocal cord paralysis requiring prolonged tracheostomy <which was recently removed >and feeding tube placement; d. Faslodex 500 mg IM (days 1, 15, 29 and monthly thereafter) initiated 12/22/15 and last dose given on 04/13/16. 7. Overall prognosis is poor 8. DO NOT RESUSCITATE this patient 9. DVT prophylaxis-Enoxaparin 40mg daily. Clinical Quality Measures DVT/VTE Risk/Contraindication: Risk Factor Score Per Nursin RFS Level Per Nursing on Admit: 4+=Very High ONESIMO HUFFMAN MD May 12, 2016 13:32
--- NOTE | 2016-05-12 13:47 | Occupational Therapy Eval ---
OT Evaluation-General/PLF Medical Diagnosis Admission Date May 11, 2016 at 14:26 Height/Weight Height (Feet): 5 Height (Inches): 3.00 Weight (Pounds): 126 Weight (Ounces): 11.2 Precautions Precautions/Isolations: Fall Prevention Safety Interventions: Bed Exit Alarm Medical History Pertinent Medical History: Breast CA S/P Mastectomy OT Current Status ADL-Treatment Functional [place] Measure 0=Not Assessed/NA 4=Minimal Assistance 1=Total Assistance 5=Supervision or Setup 2=Maximal Assistance 6=Modified [place] 3=Moderate Assistance 7=Complete IndependenceIRFPAI Quality Coding Scale 6 Independent with activity with or without an assistive device 5 Patient requires set up or clean up by helper. Patient completes activity by themselves 4 Supervision or touching assist (CGA). [place] provide cues , steadying assist 3 The helper provides less than half the effort to complete the activity 2 The helper provides more than half the effort to complete the activity 1 Dependent. The helper does all the effort to complete an activity 7 Patient refused to complete or attempt activity 9 The patient did not perform the activity before the current illness or injury 88 Not attempted due to Medical conditions or safety concerns OT Short Term Goals Short Term Goals 1=Demonstrate adherence to instructed precautions during ADL tasks. 2=Patient will verbalize/demonstrate understanding of assistive devices/ modifications for ADL. 3=Patient will improve strength/tolerance for activity to enable patient to perform ADL's. OT Senior Care Goals Booking Manager Goals 1=Demonstrate adherence to instructed precautions during ADL tasks. 2=Patient will verbalize/demonstrate understanding of assistive devices/ modifications for ADL. 3=Patient will improve strength/tolerance for activity to enable patient to perform ADL's. OT Education/Plan Discharge Recommendations Plan/Recommendations: Continue POC Treatment Plan/Plan of Care Patient would benefit from OT for education, treatment and training to promote independence in ADL's, mobility, safety and/or upper extremity function for ADL' s. Time/GCodes Start Time: 13:15 Stop Time: 13:42 Total Time Billed (hr/min): 27 Billed Treatment Time visit, KELLY Sanchez OT May 12, 2016 13:47
--- NOTE | 2016-05-12 15:31 | Occupational Therapy Eval ---
OT Evaluation-General/PLF Medical Diagnosis Admission Date May 11, 2016 at 14:26 Medical Diagnosis: AMS, weakness, hypercalcemia Onset Date: May 11, 2016 Therapy Diagnosis Therapy Diagnosis: weakness, decreased self care Height/Weight Height (Feet): 5 Height (Inches): 3.00 Weight (Pounds): 126 Weight (Ounces): 11.2 Precautions Precautions/Isolations: Fall Prevention Safety Interventions: Bed Exit Alarm Referral Physician: Jeffy Referral Reason: Evaluation/Treatment Medical History Pertinent Medical History: Breast CA S/P Mastectomy Additional Medical History Hx breast CA, brain tumor with radiation, PEG tube (pt is NPO) Current History Indwelling catheter, trach has been removed but has secretions. Family reported foul smelling stools. Recently unable to move legs or lift hands to mouth. Family reports she is confused and hallucinating at times. Reviewed History: Yes Social History Home: Single Level Current Living Status: Significant Other ADL-Prior Level of Function ADL PLOF Comments Pt had been walking to the bathroom but has declined in the last month, first with difficulty moving legs and then progressing to difficulty moving arms. reported she has some Parkinsons-like movements in her arms. Occupation: worked for [employer] OT Current Status Subjective Pt seen in room, in bed, recognized OT. No pain mentioned. Appearance Alert at times. reported she will fall asleep with her eyes open. Speech is often hard to understand Mental Status/Objective Patient Orientation: Person Attachments: Central Line, [place] Catheter, IV, PEG Tube Current Glasses/Contacts: Yes Upper Extremity ROM Grossly WFL passively. Upper Extremity Strength Grossly 3-/5 to 3/5 bilat. Some atrophy in hands. Pt had difficulty following instructions. ADL-Treatment ADL-Current Pt was able to assist with swabbing her mouth but was not thorough. She could wash under her arms but not thoroughly. Unable to reach up to wash face. Total care to roll side to side when she was incontinent of stool. Pt's feet are plantar flexed when she is supine and may benefit from cloth foot positioning devices (info shared with nursing) Functional [place] Measure 0=Not Assessed/NA 4=Minimal Assistance 1=Total Assistance 5=Supervision or Setup 2=Maximal Assistance 6=Modified [place] 3=Moderate Assistance 7=Complete IndependenceIRFPAI Quality Coding Scale 6 Independent with activity with or without an assistive device 5 Patient requires set up or clean up by helper. Patient completes activity by themselves 4 Supervision or touching assist (CGA). [place] provide cues , steadying assist 3 The helper provides less than half the effort to complete the activity 2 The helper provides more than half the effort to complete the activity 1 Dependent. The helper does all the effort to complete an activity 7 Patient refused to complete or attempt activity 9 The patient did not perform the activity before the current illness or injury 88 Not attempted due to Medical conditions or safety concerns Wrote patient's "homework" on white board : help swab mouth, help wash face, help with rolling side to side Education OT Patient Education: Instructions to caregiver Teaching Recipient: Family Response to Teaching: Verbalize Understanding OT Table Assembler Goals Table Assembler Goals Time Frame: May 19, 2016 Family able to encourage Levi's ADL participation as her physical status allows 1 OT Education/Plan Problem List/Assessment Assessment: Decreased UE Strength, Impaired Self-Care Skills Pt would benefit from family training to encourage her to participate in ADLs as she is able. Goals can be upgraded as her abilities increase. Discharge Recommendations Plan/Recommendations: Continue POC Treatment Plan/Plan of Care Treatment,Training & Education: Yes Patient would benefit from OT for education, treatment and training to promote independence in ADL's, mobility, safety and/or upper extremity function for ADL' s. Plan of Care: OTHER (Family education in encouraging ADL participation) Treatment Duration: May 19, 2016 # of days/week 5 Agreement: Yes (family agreement) Rehab Potential: Guarded Time/GCodes Start Time: 13:15 Stop Time: 13:42 Total Time Billed (hr/min): 27 Billed Treatment Time visit, joseph low intensity 27 minutes KELLY ATKINS OT May 12, 2016 15:30
[2016-05-12 17:00] VITALS: BP 111/59
[2016-05-12] MEDS: ENOXAPARIN 40 MG/0.4 ML (LOVENOX) SYR SC SCH (17:09)
[2016-05-12 20:00] VITALS: BP 116/62
[2016-05-13] VITALS: BP 121/64
[2016-05-13 04:00] VITALS: BP 133/69
[2016-05-13 06:59] LABS: BASOPHILS % (AUTO) 0 % (0-10); EOSINOPHILS # (AUTO) 0.3 10^3/uL (0.0-0.3); EOSINOPHILS % (AUTO) 4 % (0-10); LYMPHOCYTES # (AUTO) 0.8 X 10^3 (1.0-4.0); LYMPHOCYTES % (AUTO) 10 % (12-44); MEAN CORPUSCULAR HEMOGLOBIN 29 PG (25-34); MEAN CORPUSCULAR HGB CONC 31 G/DL (32-36); MEAN CORPUSCULAR VOLUME 94 FL (80-99); MEAN PLATELET VOLUME 10.6 FL (7.4-10.4); MONOCYTES # (AUTO) 0.8 X 10^3 (0.0-1.0); MONOCYTES % (AUTO) 11 % (0-12); NEUTROPHILS # (AUTO) 5.8 X 10^3 (1.8-7.8); NEUTROPHILS % (AUTO) 75 % (42-75); PLATELET COUNT 180 10^3/uL (130-400); RED BLOOD COUNT 3.46 10^6/uL (4.35-5.85); RED CELL DISTRIBUTION WIDTH 14.9 % (10.0-14.5); WHITE BLOOD COUNT 7.7 10^3/uL (4.3-11.0)
[2016-05-13 07:18] LABS: ALANINE AMINOTRANSFERASE 31 U/L (0-55); ANION GAP 7 MMOL/L (5-14); ASPARTATE AMINO TRANSFERASE 31 U/L (5-34); BILIRUBIN,TOTAL 0.5 MG/DL (0.1-1.0); BLOOD UREA NITROGEN 20 MG/DL (7-18); BUN/CREATININE RATIO 29; CALCIUM 9.5 MG/DL (8.5-10.1); CARBON DIOXIDE 28 MMOL/L (21-32); CHLORIDE 111 MMOL/L (98-107); CREATININE SERUM 0.69 MG/DL (0.60-1.30); GFR ESTIMATED > 60; GLUCOSE 123 MG/DL (70-105); POTASSIUM 3.9 MMOL/L (3.6-5.0); SODIUM 146 MMOL/L (135-145); TOTAL PROTEIN 6.4 G/DL (6.4-8.2)
[2016-05-13] MEDS: 1/2 NS W/KCL 20 MEQ/L 1,000 ML IV SCH ×3 (07:56→21:44)
[2016-05-13 08:00] VITALS: BP 125/68
--- NOTE | 2016-05-13 09:06 | Progress Note (SOAP) ---
Subjective Subjective/Events-last exam PT REPORTS THAT SHE IS DEPRESSED BECAUSE OF HER SITUATION -SHE FEELS BAD DUE TO BEING SICK - BUT FEELS DEPRESSED BECAUSE OF HOW BADLY THE CANCER HAS AFFECTED HER LIFE. Review of Systems General: Fatigue Pulmonary: Cough Cardiovascular: No: Chest Pain Gastrointestinal: No: Abdominal Pain, Nausea Genitourinary: Other (ROMAN IN PLACE) Neurological: Weakness Objective Exam Vital Signs Date Time Temp Pulse Resp B/P (MAP) Pulse Ox O2 Delivery O2 Flow Rate FiO2 05/13/16 07:45 Nasal Cannula 2.00 05/13/16 04:00 99.3 98 22 133/69 98 Nasal Cannula 2.00 05/13/16 00:00 99.5 105 24 121/64 100 Nasal Cannula 2.00 05/12/16 21:00 Nasal Cannula 2.00 05/12/16 20:00 98.6 101 20 116/62 100 Nasal Cannula 2.00 05/12/16 19:48 3.00 05/12/16 17:00 111/59 05/12/16 16:05 98.7 98 20 95 Nasal Cannula 2.00 05/12/16 12:00 98.5 115 22 90/50 Nasal Cannula 2.00 I & O 05/13/16 07:00 Intake Total 0 ml Output Total 1750 ml Balance -1750 ml Capillary Refill : General Appearance: No Apparent Distress, WD/WN Neck: Supple Respiratory: Chest Non Tender, Decreased Breath Sounds, Rhonci Cardiovascular: Regular Rate, Rhythm Gastrointestinal: normal bowel sounds, non tender, soft, no organomegaly, no pulsatile mass Extremity: No Pedal Edema Neurologic/Psychiatric: Alert, Oriented x3, Depressed Affect Skin: Warm/Dry Lymphatic: No Adenopathy Results Lab Laboratory Tests 05/13/16 05:39: White Blood Count 7.7, Red Blood Count 3.46L, Hemoglobin 10.0L, Hematocrit 33L, Mean Corpuscular Volume 94, Mean Corpuscular Hemoglobin 29, Mean Corpuscular Hemoglobin Concent 31L, Red Cell Distribution Width 14.9H, Platelet Count 180, Mean Platelet Volume 10.6H, Neutrophils (%) (Auto) 75, Lymphocytes (%) (Auto) 10L, Monocytes (%) (Auto) 11, Eosinophils (%) (Auto) 4, Basophils (%) (Auto) 0, Neutrophils # (Auto) 5.8, Lymphocytes # (Auto) 0.8L, Monocytes # (Auto) 0.8, Eosinophils # (Auto) 0.3, Basophils # (Auto) 0.0, Sodium Level 146H, Potassium Level 3.9, Chloride Level 111H, Carbon Dioxide Level 28, Anion Gap 7, Blood Urea Nitrogen 20H, Creatinine 0.69, Estimat Glomerular Filtration Rate > 60, BUN /Creatinine Ratio 29, Glucose Level 123H, Calcium Level 9.5, Total Bilirubin 0.5 , Aspartate Amino Transf (AST/SGOT) 31, Alanine Aminotransferase (ALT/SGPT) 31, Alkaline Phosphatase 71, Total Protein 6.4, Albumin 3.0L Microbiology 05/11/16 C. difficile GDH Antigen & Toxins - Final, Resulted 05/11/16 Stool Culture - Preliminary, Resulted 05/11/16 Gram Stain - Final, Resulted 05/11/16 Sputum Culture - Preliminary, Resulted Pseudomonas Aeruginosa 05/11/16 Urine Culture - Preliminary, Resulted Probable E.coli Probable Enterococcus Species Assessment/Plan Assessment/Plan Assess & Plan/Chief Complaint HYPERNATREMIA HYPERKALEMIA URINARY TRACT INFECTION CONFUSION MEDICATION REACTION GENERALIZED WEAKNESS AND MALAISE METASTATIC BREAST CANCER HYPERNATREMIA AND HYPERKALEMIA - - IMPROVING- CONTINUE WITH IV FLUIDS, MONITOR CMP, CBC. UTI- ON IV ANTIBIOTICS - MONITOR AND ADJUST MEDICATIONS BASED ON URINALYSIS. - VRE ON CULTURE REPORT - ADJUST MEDICATIONS TODAY. - PLACED IN ISOLATION. CONFUSION - STABILIZED - ANTICIPATE IMPROVEMENT WITH HYDRATION CONFUSION - DUE TO MEDICATION REACTION - OF REGLAN - IMPROVING WITH [employer] OF REGLAN LAST WEEK. MUSCLE WEAKNESS AND MALAISE - FAMILY NOT ABLE TO CARE FOR CONSUELO AT HOME - WILL NEED [facility] PLACEMENT ON DISCHARGE. METASTATIC BREAST CANCER - SUPPORTIVE CARE - PT HAS LESION ON TONSIL - NEED TO HAVE MICHAEL DISCUSSION WITH FAMILY ABOUT PT'S SITUATION - SHE IS TOO FRAIL TO HAVE SURGERY AT THIS TIME. Clinical Quality Measures DVT/VTE Risk/Contraindication: Risk Factor Score Per Nursin RFS Level Per Nursing on Admit: 4+=Very High BERTA TINOCO MD May 13, 2016 09:06
[2016-05-13] MEDS: CEFEPIME INJECTION 2,000 MG in NS (IVPB) 50 ML IV SCH (09:51)
[2016-05-13] MEDS: fluCOnazole (DIFLUCAN) 10MG/ML 35ML BTL JT SCH (09:52)
[2016-05-13] MEDS: ACETAMINOPHEN 325 MG TABLET/CAPLET (TYLENOL) JT PRN (10:11)
[2016-05-13] MEDS: LEVOFLOXACIN 750 MG/150 ML IV 150 ML IV SCH (11:03)
--- NOTE | 2016-05-13 11:59 | Progress Note-Standard ---
Standard Progress Note Progress Notes/Assess & Plan Progress/Assessment & Plan 51-year-old female with history of metastatic breast cancer that is HER-2/linda positive and ER positive with large posterior fossa metastasis that was resected. Significant postoperative complications including local cord paralysis, recurrent infections and significant deconditioning. Tracheostomy was eventually discontinued with the gastrostomy tube placement. Patient admitted to the hospital with the fever chills and urinary tract infection as well as mental status changes. Urine culture growing 3 separate organisms all of which were more than 100,000 colonies including VRE. Sensitivity of Enterobacter to cefepime is pending. Patient is currently on Levaquin and cefepime. Sputum growing Pseudomonas that the sensitive to all antibiotics. Patient is somnolent but arousable and is answering simple questions appropriately. Her is in the room and feels that she may be slightly better. Lungs with bilateral rhonchi and rales without wheezes. Lab work noted with slight decline in hemoglobin. Sodium improving. I will add linezolid 600 mg IV twice a day because of the presence of VRE in the urine with all of her presenting symptoms. Repeat CBC and CMP tomorrow. Noted Dr. Cummins plan to do an LP if her mental status does not improve to rule out leptomeningeal carcinomatosis. ELHAM FLORES May 13, 2016 11:59
[2016-05-13 12:00] VITALS: BP 115/63
[2016-05-13] MEDS: LINEZOLID IVPB 300 ML IV SCH (13:06)
[2016-05-13] MEDS: ENOXAPARIN 40 MG/0.4 ML (LOVENOX) SYR SC SCH (16:13)
[2016-05-13 16:27] VITALS: BP 122/71
[2016-05-13] MEDS: MEROPENEM 500 MG in NS (IVPB) 100 ML IV SCH (18:06)
[2016-05-13 20:00] VITALS: BP 133/75
[2016-05-13] MEDS: LACTOBACILLUS Acidoph/Bulgar 1 GM (LACTINEX) PACKET PEG SCH (21:44)
[2016-05-14] VITALS: BP 102/66
[2016-05-14] MEDS: MEROPENEM 500 MG in NS (IVPB) 100 ML IV SCH ×4 (00:33→18:16)
[2016-05-14] MEDS: LINEZOLID IVPB 300 ML IV SCH ×2 (01:31→12:23)
[2016-05-14 04:09] VITALS: BP 96/60
[2016-05-14 04:42] LABS: BASOPHILS % (AUTO) 0 % (0-10); EOSINOPHILS # (AUTO) 0.4 10^3/uL (0.0-0.3); EOSINOPHILS % (AUTO) 6 % (0-10); LYMPHOCYTES # (AUTO) 0.6 X 10^3 (1.0-4.0); MEAN CORPUSCULAR HEMOGLOBIN 29 PG (25-34); MEAN CORPUSCULAR HGB CONC 32 G/DL (32-36); MEAN CORPUSCULAR VOLUME 92 FL (80-99); MEAN PLATELET VOLUME 10.5 FL (7.4-10.4); MONOCYTES # (AUTO) 0.7 X 10^3 (0.0-1.0); MONOCYTES % (AUTO) 10 % (0-12); NEUTROPHILS # (AUTO) 5.2 X 10^3 (1.8-7.8); PLATELET COUNT 164 10^3/uL (130-400); RED BLOOD COUNT 3.43 10^6/uL (4.35-5.85); RED CELL DISTRIBUTION WIDTH 14.3 % (10.0-14.5); WHITE BLOOD COUNT 6.9 10^3/uL (4.3-11.0)
[2016-05-14 04:45] LABS: LYMPHOCYTES % (AUTO) 9 % (12-44); NEUTROPHILS % (AUTO) 75 % (42-75)
[2016-05-14 05:07] LABS: ALANINE AMINOTRANSFERASE 33 U/L (0-55); ALBUMIN 2.8 G/DL (3.2-4.5); ANION GAP 8 MMOL/L (5-14); ASPARTATE AMINO TRANSFERASE 30 U/L (5-34); BILIRUBIN,TOTAL 0.3 MG/DL (0.1-1.0); BLOOD UREA NITROGEN 13 MG/DL (7-18); BUN/CREATININE RATIO 22; CALCIUM 9.2 MG/DL (8.5-10.1); CARBON DIOXIDE 28 MMOL/L (21-32); CHLORIDE 105 MMOL/L (98-107); GFR ESTIMATED > 60; GLUCOSE 159 MG/DL (70-105); POTASSIUM 3.7 MMOL/L (3.6-5.0); SODIUM 141 MMOL/L (135-145); TOTAL PROTEIN 5.9 G/DL (6.4-8.2)
[2016-05-14] MEDS: 1/2 NS W/KCL 20 MEQ/L 1,000 ML IV SCH ×3 (05:49→21:08)
--- NOTE | 2016-05-14 06:42 | Progress Note-Standard ---
Standard Progress Note Progress Notes/Assess & Plan Progress/Assessment & Plan ENT-Cesar-05/14-630 Dropped past to see patient Trach site examined-hole much smaller but still present trach site is clean otherwise would conitnue the trach dressing-theres a good chance it will completely close- just taking some time because of other health issues Apt for 05/17 cancelled in our office as was the surgery for 05/23-will arrange for follow-up in office in later paril early june to reexamine trach site and left tonsil region-there is no way she is in good enough health at this time to consider a gen anes or the post-op care from a tonsil biopsy/tonsillectomy ODESSA VILLATORO MD May 14, 2016 6:42 am
[2016-05-14 08:00] VITALS: BP 111/73
--- NOTE | 2016-05-14 09:06 | Progress Note (SOAP) ---
Subjective Subjective/Events-last exam PT REPORTS THAT SHE IS FEELING A LITTLE BIT BETTER TODAY. REPORTS THAT CONSUELO DOES NOT FEEL WHEN SHE IS NEEDING TO HAVE A BOWEL MOVEMENT OR WHEN SHE IS ACTUALLY HAVING A BOWEL MOVEMENT. SHE DENIES SHORTNESS OF BREATH Review of Systems General: No Chills, Fatigue HEENT: No Head Aches Pulmonary: Dyspnea, Cough Cardiovascular: No: Chest Pain Gastrointestinal: Diarrhea, No: Abdominal Pain, Nausea Genitourinary: Incontinence, Retention, Other (ROMAN IN PLACE) Neurological: Confusion (INTERMITTENT), Weakness Objective Exam Vital Signs Date Time Temp Pulse Resp B/P (MAP) Pulse Ox O2 Delivery O2 Flow Rate FiO2 05/14/16 08:00 Nasal Cannula 2.00 05/14/16 04:09 98.9 95 16 96/60 91 Nasal Cannula 2.00 05/14/16 00:00 97.7 101 16 102/66 93 Nasal Cannula 2.00 05/13/16 21:00 Nasal Cannula 2.00 05/13/16 20:00 97.5 95 24 133/75 97 Nasal Cannula 2.00 05/13/16 18:52 3.00 05/13/16 16:27 96.4 94 24 122/71 95 Nasal Cannula 2.00 05/13/16 12:00 96.4 96 20 115/63 95 Nasal Cannula 2.00 05/13/16 11:05 3.00 I & O 05/14/16 07:00 Intake Total 951 ml Output Total 2250 ml Balance -1299 ml Capillary Refill : General Appearance: No Apparent Distress, WD/WN HEENT: PERRL/EOMI, Other (TRACH SITE COVERED) Respiratory: Chest Non Tender, Decreased Breath Sounds, Rhonci Cardiovascular: Regular Rate, Rhythm, No Edema Gastrointestinal: normal bowel sounds, non tender, soft, no organomegaly, no pulsatile mass, other (PEG TUBE SITE C/D/I) Extremity: Normal Capillary Refill, No Pedal Edema Neurologic/Psychiatric: Alert, Oriented x3, Normal Mood/Affect Skin: Warm/Dry Lymphatic: No Adenopathy Results Lab Laboratory Tests 05/14/16 04:15: White Blood Count 6.9, Red Blood Count 3.43L, Hemoglobin 10.1L, Hematocrit 32L, Mean Corpuscular Volume 92, Mean Corpuscular Hemoglobin 29, Mean Corpuscular Hemoglobin Concent 32, Red Cell Distribution Width 14.3, Platelet Count 164, Mean Platelet Volume 10.5H, Neutrophils (%) (Auto) 75, Lymphocytes (%) (Auto) 9L , Monocytes (%) (Auto) 10, Eosinophils (%) (Auto) 6, Basophils (%) (Auto) 0, Neutrophils # (Auto) 5.2, Lymphocytes # (Auto) 0.6L, Monocytes # (Auto) 0.7, Eosinophils # (Auto) 0.4H, Basophils # (Auto) 0.0, Sodium Level 141, Potassium Level 3.7, Chloride Level 105, Carbon Dioxide Level 28, Anion Gap 8, Blood Urea Nitrogen 13, Creatinine 0.60, Estimat Glomerular Filtration Rate > 60, BUN/ Creatinine Ratio 22, Glucose Level 159H, Calcium Level 9.2, Total Bilirubin 0.3 , Aspartate Amino Transf (AST/SGOT) 30, Alanine Aminotransferase (ALT/SGPT) 33, Alkaline Phosphatase 69, Total Protein 5.9L, Albumin 2.8L Microbiology 05/11/16 C. difficile GDH Antigen & Toxins - Final, Resulted 05/11/16 Stool Culture - Preliminary, Resulted No stool pathogens as yet isolated. ... 05/11/16 Gram Stain - Final, Resulted 05/11/16 Sputum Culture - Preliminary, Resulted Pseudomonas Aeruginosa 05/11/16 Urine Culture - Final, Complete Raoultella Ornithinolytica Enterobacter Cloacae Complex Enterococcus Faecalis Assessment/Plan Assessment/Plan Assess & Plan/Chief Complaint HYPERNATREMIA HYPERKALEMIA URINARY TRACT INFECTION CONFUSION MEDICATION REACTION GENERALIZED WEAKNESS AND [place] METASTATIC BREAST CANCER HYPERNATREMIA AND HYPERKALEMIA - - IMPROVING- CONTINUE WITH IV FLUIDS, MONITOR CMP, CBC. UTI- ON IV ANTIBIOTICS - MONITOR AND ADJUST MEDICATIONS BASED ON URINALYSIS. - VRE ON CULTURE REPORT - ADJUST MEDICATIONS YESTERDAY. - PLACED IN ISOLATION. - DID NOT TOLERATE THE LEVAQUIN - PT'S MEDICATION ADJUSTED TO MEROPENEM AND LINEZOLID CONFUSION - IMPROVED WITH HYDRATION AND IMPROVING WITH [employer] OF REGLAN LAST WEEK. MUSCLE WEAKNESS AND MALAISE - FAMILY NOT ABLE TO CARE FOR CONSUELO AT HOME - WILL NEED RETIREMENT PLACEMENT ON DISCHARGE. METASTATIC BREAST CANCER - SUPPORTIVE CARE - PT HAS LESION ON TONSIL - NEED TO HAVE MICHAEL DISCUSSION WITH FAMILY ABOUT PT'S SITUATION - SHE IS TOO FRAIL TO HAVE SURGERY AT THIS TIME. Clinical Quality Measures DVT/VTE Risk/Contraindication: Risk Factor Score Per Nursin RFS Level Per Nursing on Admit: 4+=Very High BERTA TINOCO MD May 14, 2016 09:06
[2016-05-14] MEDS: fluCOnazole (DIFLUCAN) 10MG/ML 35ML BTL JT SCH (09:20)
[2016-05-14] MEDS: LACTOBACILLUS Acidoph/Bulgar 1 GM (LACTINEX) PACKET PEG SCH ×2 (09:20→20:34)
[2016-05-14 12:00] VITALS: BP 109/70
--- NOTE | 2016-05-14 14:17 | Progress Note-Standard ---
Standard Progress Note Progress Notes/Assess & Plan Progress/Assessment & Plan 51-year-old female with history of metastatic breast cancer that is HER-2/linda positive and ER positive with large posterior fossa metastasis that was resected. Significant postoperative complications including vocal cord paralysis, recurrent infections and significant deconditioning. Tracheostomy was eventually discontinued with the gastrostomy tube placement. Patient admitted to the hospital with the fever chills and urinary tract infection as well as mental status changes. Urine culture growing 3 separate organisms all of which were more than 100,000 colonies including VRE. Sensitivity of Enterobacter to cefepime is pending. Sputum growing Pseudomonas. Patient is currently on Meropenem and linezolid. Patient is awake and is answering simple questions appropriately. She is much more alert than yesterday. Her and her parents are in the room. Lungs with bilateral rhonchi and rales without wheezes. Abdomen with gastrostomy tube present. Lab work noted and stable. Stool sample negative for C. difficile toxin but cultures pending. Continue current care. ELHAM FLORES May 14, 2016 14:17
[2016-05-14] MEDS: ACETAMINOPHEN 325 MG TABLET/CAPLET (TYLENOL) JT PRN (14:59)
[2016-05-14] MEDS: ENOXAPARIN 40 MG/0.4 ML (LOVENOX) SYR SC SCH (15:38)
[2016-05-14 16:00] VITALS: BP 97/55
[2016-05-14 20:00] VITALS: BP 121/78
[2016-05-15] VITALS (8 sets, daily range): BP systolic 102–135; BP diastolic 55–79
[2016-05-15] MEDS: MEROPENEM 500 MG in NS (IVPB) 100 ML IV SCH ×4 (00:16→18:07)
[2016-05-15] MEDS: LINEZOLID IVPB 300 ML IV SCH ×2 (00:17→12:47)
[2016-05-15 06:00] LABS: BASOPHILS % (AUTO) 0 % (0-10); EOSINOPHILS # (AUTO) 0.4 10^3/uL (0.0-0.3); EOSINOPHILS % (AUTO) 6 % (0-10); LYMPHOCYTES # (AUTO) 0.6 X 10^3 (1.0-4.0); LYMPHOCYTES % (AUTO) 9 % (12-44); MEAN CORPUSCULAR HEMOGLOBIN 29 PG (25-34); MEAN CORPUSCULAR HGB CONC 32 G/DL (32-36); MEAN CORPUSCULAR VOLUME 92 FL (80-99); MEAN PLATELET VOLUME 10.4 FL (7.4-10.4); MONOCYTES # (AUTO) 0.6 X 10^3 (0.0-1.0); MONOCYTES % (AUTO) 8 % (0-12); NEUTROPHILS # (AUTO) 5.2 X 10^3 (1.8-7.8); NEUTROPHILS % (AUTO) 77 % (42-75); PLATELET COUNT 191 10^3/uL (130-400); RED BLOOD COUNT 3.67 10^6/uL (4.35-5.85); RED CELL DISTRIBUTION WIDTH 14.4 % (10.0-14.5); WHITE BLOOD COUNT 6.8 10^3/uL (4.3-11.0)
[2016-05-15] MEDS: 1/2 NS W/KCL 20 MEQ/L 1,000 ML IV SCH ×3 (10:26→21:51)
[2016-05-15] MEDS: fluCOnazole (DIFLUCAN) 10MG/ML 35ML BTL JT SCH (10:27)
[2016-05-15] MEDS: LACTOBACILLUS Acidoph/Bulgar 1 GM (LACTINEX) PACKET PEG SCH (10:27)
--- NOTE | 2016-05-15 10:46 | Progress Note (SOAP) ---
Subjective Subjective/Events-last exam PT CONFUSED THIS MORNING - SHE REPORTS THAT "I AM READY TO GET OFF OF THIS TABLE." AND THEN ASKS IF SHE CAN TALK TO ME WITHOUT ALL OF THE PEOPLE IN THE ROOM - AT THAT TIME IS WAS JUST ME IN THE ROOM. PT DENIES ANY OTHER CONCERNS. Review of Systems General: No Chills, Fatigue, Malaise HEENT: No Head Aches Pulmonary: No Dyspnea, Cough Cardiovascular: No: Chest Pain Gastrointestinal: No: Abdominal Pain, Nausea Genitourinary: No Dysuria, Incontinence Neurological: Confusion, Weakness Objective Exam Vital Signs Date Time Temp Pulse Resp B/P (MAP) Pulse Ox O2 Delivery O2 Flow Rate FiO2 05/15/16 08:30 98.1 99 22 113/76 97 Nasal Cannula 2.00 05/15/16 04:00 98.3 105 20 135/75 95 Nasal Cannula 2.00 05/15/16 00:00 97.8 91 20 130/71 94 Nasal Cannula 2.00 05/14/16 21:00 Nasal Cannula 2.00 05/14/16 20:00 97.6 96 20 121/78 98 Nasal Cannula 2.00 05/14/16 18:47 3.00 05/14/16 16:00 97.0 69 20 97/55 93 Nasal Cannula 2.00 05/14/16 15:30 98.0 05/14/16 12:00 98.0 92 20 109/70 97 Nasal Cannula 2.00 I & O 05/15/16 07:00 Intake Total 2420 ml Output Total 4825 ml Balance -2405 ml Capillary Refill : General Appearance: WD/WN, Mild Distress Respiratory: Chest Non Tender, Rhonci Cardiovascular: Regular Rate, Rhythm Gastrointestinal: normal bowel sounds, non tender, soft, no organomegaly, no pulsatile mass Extremity: No Pedal Edema Neurologic/Psychiatric: Alert, Disoriented x3 Skin: Warm/Dry Results Lab Laboratory Tests 05/15/16 05:44: White Blood Count 6.8, Red Blood Count 3.67L, Hemoglobin 10.7L, Hematocrit 34L, Mean Corpuscular Volume 92, Mean Corpuscular Hemoglobin 29, Mean Corpuscular Hemoglobin Concent 32, Red Cell Distribution Width 14.4, Platelet Count 191, Mean Platelet Volume 10.4, Neutrophils (%) (Auto) 77H, Lymphocytes (%) (Auto) 9L , Monocytes (%) (Auto) 8, Eosinophils (%) (Auto) 6, Basophils (%) (Auto) 0, Neutrophils # (Auto) 5.2, Lymphocytes # (Auto) 0.6L, Monocytes # (Auto) 0.6, Eosinophils # (Auto) 0.4H, Basophils # (Auto) 0.0 Microbiology 05/11/16 C. difficile GDH Antigen & Toxins - Final, Resulted 05/11/16 Stool Culture - Preliminary, Resulted No stool pathogens as yet isolated. ... 05/11/16 Gram Stain - Final, Complete 05/11/16 Sputum Culture - Final, Complete Pseudomonas Aeruginosa 05/11/16 Urine Culture - Final, Complete Raoultella Ornithinolytica Enterobacter Cloacae Complex Enterococcus Faecalis Assessment/Plan Assessment/Plan Assess & Plan/Chief Complaint HYPERNATREMIA HYPERKALEMIA URINARY TRACT INFECTION CONFUSION MEDICATION REACTION GENERALIZED WEAKNESS AND [place]AISE METASTATIC BREAST CANCER HYPERNATREMIA AND HYPERKALEMIA - - IMPROVING- CONTINUE WITH IV FLUIDS, MONITOR CMP, CBC. UTI- ON IV ANTIBIOTICS - MONITOR AND ADJUST MEDICATIONS BASED ON URINALYSIS. - VRE ON CULTURE REPORT - ADJUST MEDICATIONS SUNDAY. - PLACED IN ISOLATION. - DID NOT TOLERATE THE LEVAQUIN - PT'S MEDICATION ADJUSTED TO MEROPENEM AND LINEZOLID CONFUSION - IMPROVED WITH HYDRATION AND IMPROVING WITH [facility] [place] LAST WEEK. MUSCLE WEAKNESS AND MALAISE - FAMILY NOT ABLE TO CARE FOR CONSUELO AT HOME - WILL NEED [facility] PLACEMENT ON DISCHARGE. METASTATIC BREAST CANCER - SUPPORTIVE CARE - PT HAS LESION ON TONSIL - NEED TO HAVE MICHAEL DISCUSSION WITH FAMILY ABOUT PT'S SITUATION - SHE IS TOO FRAIL TO HAVE SURGERY AT THIS TIME. Clinical Quality Measures DVT/VTE Risk/Contraindication: Risk Factor Score Per Nursin RFS Level Per Nursing on Admit: 4+=Very High BERTA TINOCO MD May 15, 2016 10:46
--- NOTE | 2016-05-15 11:43 | Occ Therapy Progress Note ---
Therapy Progress Note Pt stated that she has gotten some bad news from the doctor and is very upset. She refused therapy at this time. 1 refusal HUMBERTO LUNA May 15, 2016 11:43
[2016-05-15] MEDS: ENOXAPARIN 40 MG/0.4 ML (LOVENOX) SYR SC SCH (15:55)
--- NOTE | 2016-05-15 19:31 | Progress Note (SOAP) ---
Subjective Subjective/Events-last exam Remains intermittently confused;Family at bedside; I spoke with about possible need for lumbar puncture to assess for leptomeningeal spread as etiology for her confusion and neurological deterioration. He is not fully decided that he is leaning toward not having more investigational studies at this time that would result in chemotherapy. Objective Exam Vital Signs Date Time Temp Pulse Resp B/P (MAP) Pulse Ox O2 Delivery O2 Flow Rate FiO2 05/15/16 16:00 96.9 113 18 111/55 Nasal Cannula 2.00 05/15/16 12:00 97.8 100 17 123/79 Nasal Cannula 2.00 05/15/16 12:00 97.5 100 20 123/79 99 Nasal Cannula 2.00 05/15/16 09:00 Nasal Cannula 2.00 05/15/16 08:30 98.1 99 22 113/76 97 Nasal Cannula 2.00 05/15/16 04:00 98.3 105 20 135/75 95 Nasal Cannula 2.00 05/15/16 00:00 97.8 91 20 130/71 94 Nasal Cannula 2.00 05/14/16 21:00 Nasal Cannula 2.00 05/14/16 20:00 97.6 96 20 121/78 98 Nasal Cannula 2.00 I & O 05/15/16 07:00 Intake Total 2420 ml Output Total 4825 ml Balance -2405 ml Capillary Refill : General Appearance: Chronically ill HEENT: PERRL/EOMI Respiratory: Crackles, Decreased Breath Sounds Cardiovascular: Regular Rate, Rhythm Gastrointestinal: normal bowel sounds, other ( Feeding tube in place) Results Lab Laboratory Tests 05/15/16 05:44: White Blood Count 6.8, Red Blood Count 3.67L, Hemoglobin 10.7L, Hematocrit 34L, Mean Corpuscular Volume 92, Mean Corpuscular Hemoglobin 29, Mean Corpuscular Hemoglobin Concent 32, Red Cell Distribution Width 14.4, Platelet Count 191, Mean Platelet Volume 10.4, Neutrophils (%) (Auto) 77H, Lymphocytes (%) (Auto) 9L , Monocytes (%) (Auto) 8, Eosinophils (%) (Auto) 6, Basophils (%) (Auto) 0, Neutrophils # (Auto) 5.2, Lymphocytes # (Auto) 0.6L, Monocytes # (Auto) 0.6, Eosinophils # (Auto) 0.4H, Basophils # (Auto) 0.0 Microbiology 05/11/16 C. difficile GDH Antigen & Toxins - Final, Resulted 05/11/16 Stool Culture - Preliminary, Resulted No stool pathogens as yet isolated. ... 05/11/16 Gram Stain - Final, Complete 05/11/16 Sputum Culture - Final, Complete Pseudomonas Aeruginosa 05/11/16 Urine Culture - Final, Complete Raoultella Ornithinolytica Enterobacter Cloacae Complex Enterococcus Faecalis Assessment/Plan Assessment/Plan Assess & Plan/Chief Complaint 1. Altered mental status progressive weakness-CT scan head with contrast showed no evidence of tumor recurrence. Urine culture is positive for multiple organisms as listed above and sputum is positive for Pseudomonas which may be arising from colonization. a. If no improvement in weakness and in mental status will discuss with family need for lumbar puncture to rule out leptomeningeal metastases. Patient has metal within her breast implant according to her and can therefore not have an MRI which would be helpful to evaluate for this diagnosis. 2. UTI--Progressive weakness-likely exacerbated by patient's UTI however continue to suspect tumor progression with rising CEA to 7.29 and deteriorating clinical condition. 3. Recurrent Hypercalcemia--normal PTH level on 03/17/16, Calcium has improved with IV rehydration. Continue to monitor. 4. Hypernatremia-administer IV rehydration 5. Hypoxemia-check chest x-ray was no acute process however sputum is growing Pseudomonas which is likely arising from colonization. 6 Metastatic Breast Cancer with Metastasis to Brain (large posterior fossa mass ); a. Status Post near complete resection at [facility] on ; b. Status Post Whole Brain Radiation, 3000 cGy administered from 12/21-01/04/16 c. 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 i.) History of recurrent Pseudomonas pneumonia; ii.) Bilateral vocal cord paralysis requiring prolonged tracheostomy <which was recently removed >and feeding tube placement; d. Faslodex 500 mg IM (days 1, 15, 29 and monthly thereafter) initiated 12/22/15 and last dose given on 04/13/16. 7. Overall prognosis is poor 8. DO NOT RESUSCITATE this patient 9. DVT prophylaxis-Enoxaparin 40mg daily. Clinical Quality Measures DVT/VTE Risk/Contraindication: Risk Factor Score Per Nursin RFS Level Per Nursing on Admit: 4+=Very High ONESIMO HUFFMAN MD May 15, 2016 19:31
[2016-05-15] MEDS ORDERED: LORazepam INJ 2 MG/ML (ATIVAN) VIAL IVP ONE (22:45)
[2016-05-16] MEDS: MEROPENEM 500 MG in NS (IVPB) 100 ML IV SCH ×4 (00:13→17:07)
[2016-05-16] MEDS: LINEZOLID IVPB 300 ML IV SCH ×2 (01:22→12:22)
[2016-05-16 04:22] VITALS: BP 128/66
[2016-05-16 05:11] LABS: BASOPHILS % (AUTO) 0 % (0-10); EOSINOPHILS # (AUTO) 0.6 10^3/uL (0.0-0.3); EOSINOPHILS % (AUTO) 8 % (0-10); LYMPHOCYTES # (AUTO) 0.8 X 10^3 (1.0-4.0); LYMPHOCYTES % (AUTO) 11 % (12-44); MEAN CORPUSCULAR HEMOGLOBIN 29 PG (25-34); MEAN CORPUSCULAR HGB CONC 31 G/DL (32-36); MEAN CORPUSCULAR VOLUME 92 FL (80-99); MEAN PLATELET VOLUME 11.2 FL (7.4-10.4); MONOCYTES # (AUTO) 0.7 X 10^3 (0.0-1.0); MONOCYTES % (AUTO) 10 % (0-12); NEUTROPHILS # (AUTO) 5.1 X 10^3 (1.8-7.8); NEUTROPHILS % (AUTO) 71 % (42-75); PLATELET COUNT 155 10^3/uL (130-400); RED BLOOD COUNT 3.57 10^6/uL (4.35-5.85); RED CELL DISTRIBUTION WIDTH 14.5 % (10.0-14.5); WHITE BLOOD COUNT 7.2 10^3/uL (4.3-11.0)
[2016-05-16 08:00] VITALS: BP 112/70
[2016-05-16] MEDS: 1/2 NS W/KCL 20 MEQ/L 1,000 ML IV SCH ×3 (08:33→18:50)
[2016-05-16] MEDS: fluCOnazole (DIFLUCAN) 10MG/ML 35ML BTL JT SCH (08:33)
--- NOTE | 2016-05-16 10:57 | Occupational Ther Daily Note ---
OT Current Status-Daily Note Subjective Pt alert, lying in bed. Pt incontinent of bowel. Pt agreed to therapy. No c/ o pain. Mental Status/Objective Patient Orientation: Person, Confused Functional [place] Measure 0=Not Assessed/NA 4=Minimal Assistance 1=Total Assistance 5=Supervision or Setup 2=Maximal Assistance 6=Modified [place] 3=Moderate Assistance 7=Complete [place] Attachments: IV, Oxygen ADL-Treatment Pt was able to lift L UE then MADRID placed on over body. Pt required assist to roll toward R side then assist to stay on R side. Pt unable to cleanse buttocks or layo area. Nrsg assisted with bed bath and to roll pt side to side. Nrsg cleansed pt's mouth/teeth, pt unable to lift UE up toward head. Pt was not able to bend legs or lift legs to place pillow under, MADRID assisted pt to complete. Sores on L buttocks, nrsg aware. After therapy, pt lying on R side with call light/phone in reach. in room, all needs met in room. Functional [place] Measure 0=Not Assessed/NA 4=Minimal Assistance 1=Total Assistance 5=Supervision or Setup 2=Maximal Assistance 6=Modified [place] 3=Moderate Assistance 7=Complete IndependenceIRFPAI Quality Coding Scale 6 Independent with activity with or without an assistive device 5 Patient requires set up or clean up by helper. Patient completes activity by themselves 4 Supervision or touching assist (CGA). [place] provide cues , steadying assist 3 The helper provides less than half the effort to complete the activity 2 The helper provides more than half the effort to complete the activity 1 Dependent. The helper does all the effort to complete an activity 7 Patient refused to complete or attempt activity 9 The patient did not perform the activity before the current illness or injury 88 Not attempted due to Medical conditions or safety concerns Oral Hygiene (QC): 1 Bathing (FIM): 1 Toileting (FIM): 1 Toileting Hygiene (QC): 1 OT Short Term Goals Short Term Goals 1=Demonstrate adherence to instructed precautions during ADL tasks. 2=Patient will verbalize/demonstrate understanding of assistive devices/ modifications for ADL. 3=Patient will improve strength/tolerance for activity to enable patient to perform ADL's. OT Senior Care Goals Senior Care Goals Time Frame: May 19, 2016 Family able to encourage Levi's ADL participation as her physical status allows 1=Demonstrate adherence to instructed precautions during ADL tasks. 2=Patient will verbalize/demonstrate understanding of assistive devices/ modifications for ADL. 3=Patient will improve strength/tolerance for activity to enable patient to perform ADL's. OT Education/Plan Problem List/Assessment Pt would benefit from family training to encourage her to participate in ADLs as she is able. Goals can be upgraded as her abilities increase. Discharge Recommendations Plan/Recommendations: Continue POC Treatment Plan/Plan of Care Patient would benefit from OT for education, treatment and training to promote independence in ADL's, mobility, safety and/or upper extremity function for ADL' s. Plan of Care: OTHER (Family education in encouraging ADL participation) Treatment Duration: May 19, 2016 Agreement: Yes (family agreement) Rehab Potential: Guarded Time/GCodes Start Time: 10:25 Stop Time: 10:50 Total Time Billed (hr/min): 25 Billed Treatment Time 1 visit-ADL 2 (25 min) HUMBERTO LUNA May 16, 2016 10:57
[2016-05-16 12:00] VITALS: BP 117/75
--- NOTE | 2016-05-16 14:16 | Progress Note (SOAP) ---
Subjective Subjective/Events-last exam at bedside; Confusion and hallucinations persist. Objective Exam Vital Signs Date Time Temp Pulse Resp B/P (MAP) Pulse Ox O2 Delivery O2 Flow Rate FiO2 05/16/16 08:00 97.6 102 16 112/70 96 Nasal Cannula 2.00 05/16/16 04:22 97.6 110 12 128/66 98 Nasal Cannula 2.00 05/15/16 23:27 98.2 111 22 132/72 95 Nasal Cannula 2.00 05/15/16 20:00 98.5 110 20 102/59 99 Nasal Cannula 2.00 05/15/16 20:00 95 2.00 05/15/16 16:00 96.9 113 18 111/55 Nasal Cannula 2.00 I & O 05/16/16 07:00 Intake Total 2240 ml Output Total 4800 ml Balance -2560 ml Capillary Refill : General Appearance: Chronically ill HEENT: PERRL/EOMI, Pharynx Normal Neck: Non Tender Respiratory: Lungs Clear, Crackles Cardiovascular: Regular Rate, Rhythm Gastrointestinal: normal bowel sounds, non tender, soft, other (feeding tube in place) Extremity: Other (Small pressure ulcer right heel;) Neurologic/Psychiatric: Motor Weakness Results Lab Laboratory Tests 05/16/16 04:25: White Blood Count 7.2, Red Blood Count 3.57L, Hemoglobin 10.3L, Hematocrit 33L, Mean Corpuscular Volume 92, Mean Corpuscular Hemoglobin 29, Mean Corpuscular Hemoglobin Concent 31L, Red Cell Distribution Width 14.5, Platelet Count 155, Mean Platelet Volume 11.2H, Neutrophils (%) (Auto) 71, Lymphocytes (%) (Auto) 11L, Monocytes (%) (Auto) 10, Eosinophils (%) (Auto) 8, Basophils (%) (Auto) 0, Neutrophils # (Auto) 5.1, Lymphocytes # (Auto) 0.8L, Monocytes # (Auto) 0.7, Eosinophils # (Auto) 0.6H, Basophils # (Auto) 0.0 Microbiology 05/11/16 C. difficile GDH Antigen & Toxins - Final, Resulted 05/11/16 Stool Culture - Preliminary, Resulted No stool pathogens as yet isolated. ... 05/11/16 Gram Stain - Final, Complete 05/11/16 Sputum Culture - Final, Complete Pseudomonas Aeruginosa 05/11/16 Urine Culture - Final, Complete Raoultella Ornithinolytica Enterobacter Cloacae Complex Enterococcus Faecalis Assessment/Plan Assessment/Plan Assess & Plan/Chief Complaint 1. Altered mental status progressive weakness-CT scan head with contrast showed no evidence of tumor recurrence. Urine culture is positive for multiple organisms as listed above and sputum is positive for Pseudomonas which may be arising from colonization. a. Need for lumbar puncture to rule out leptomeningeal metastases has been discussed with who does not want to proceed with this investigation at this time. Patient has metal within her breast implant according to her and can therefore not have an MRI which would be helpful to evaluate for this diagnosis. 2. UTI--Progressive weakness-likely exacerbated by patient's UTI however continue to suspect tumor progression with rising CEA to 7.29 and deteriorating clinical condition. 3. Recurrent Hypercalcemia--normal PTH level on 03/17/16, Calcium has improved with IV rehydration. Continue to monitor. 4. Hypernatremia-administer IV rehydration 5. Hypoxemia-check chest x-ray was no acute process however sputum is growing Pseudomonas which is likely arising from colonization. 6 Metastatic Breast Cancer with Metastasis to Brain (large posterior fossa mass ); a. Status Post near complete resection at [facility] on ; b. Status Post Whole Brain Radiation, 3000 cGy administered from 12/21-01/04/16 c. 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 i.) History of recurrent Pseudomonas pneumonia; ii.) Bilateral vocal cord paralysis requiring prolonged tracheostomy <which was recently removed >and feeding tube placement; d. Faslodex 500 mg IM (days 1, 15, 29 and monthly thereafter) initiated 12/22/15 and last dose given on 04/13/16. 7. Overall prognosis is poor 8. DO NOT RESUSCITATE this patient 9. DVT prophylaxis-Enoxaparin 40mg daily. Clinical Quality Measures DVT/VTE Risk/Contraindication: Risk Factor Score Per Nursin RFS Level Per Nursing on Admit: 4+=Very High ONESIMO HUFFMAN MD May 16, 2016 14:16
[2016-05-16 16:00] VITALS: BP 120/83
[2016-05-16] MEDS: ENOXAPARIN 40 MG/0.4 ML (LOVENOX) SYR SC SCH (16:25)
[2016-05-16] MEDS: ACETAMINOPHEN 325 MG TABLET/CAPLET (TYLENOL) JT PRN (18:50)
[2016-05-16] MEDS ORDERED: ZINC OXIDE 16% OINT (BUTT PASTE) 113 GM TUBE TOP PRN (19:15)
[2016-05-16] MEDS: MENTHOL/ZINC OXIDE (CALMOSEPTINE) 113 GM TUBE TOP SCH (20:41)
[2016-05-17] VITALS: BP 115/73
[2016-05-17] MEDS: MEROPENEM 500 MG in NS (IVPB) 100 ML IV SCH ×5 (00:40→23:01)
[2016-05-17] MEDS: LINEZOLID IVPB 300 ML IV SCH ×3 (01:13→23:47)
[2016-05-17 04:24] LABS: BASOPHILS % (AUTO) 0 % (0-10); EOSINOPHILS # (AUTO) 0.6 10^3/uL (0.0-0.3); EOSINOPHILS % (AUTO) 8 % (0-10); LYMPHOCYTES # (AUTO) 0.9 X 10^3 (1.0-4.0); LYMPHOCYTES % (AUTO) 13 % (12-44); MEAN CORPUSCULAR HEMOGLOBIN 29 PG (25-34); MEAN CORPUSCULAR HGB CONC 32 G/DL (32-36); MEAN CORPUSCULAR VOLUME 92 FL (80-99); MEAN PLATELET VOLUME 10.3 FL (7.4-10.4); MONOCYTES # (AUTO) 0.7 X 10^3 (0.0-1.0); MONOCYTES % (AUTO) 11 % (0-12); NEUTROPHILS # (AUTO) 4.6 X 10^3 (1.8-7.8); NEUTROPHILS % (AUTO) 67 % (42-75); PLATELET COUNT 209 10^3/uL (130-400); RED CELL DISTRIBUTION WIDTH 14.5 % (10.0-14.5); WHITE BLOOD COUNT 6.8 10^3/uL (4.3-11.0)
[2016-05-17] MEDS: 1/2 NS W/KCL 20 MEQ/L 1,000 ML IV SCH ×3 (04:58→16:34)
[2016-05-17 08:00] VITALS: BP 131/87
[2016-05-17] MEDS: MENTHOL/ZINC OXIDE (CALMOSEPTINE) 113 GM TUBE TOP SCH ×2 (08:29→20:15)
[2016-05-17] MEDS: BENEFIBER (FROM DIETARY) DOCUMENTATION PURPOSE ONLY PO SCH (08:29)
[2016-05-17] MEDS: fluCOnazole (DIFLUCAN) 10MG/ML 35ML BTL JT SCH (08:29)
--- NOTE | 2016-05-17 08:46 | Progress Note (SOAP) ---
Subjective Subjective/Events-last exam PT STILL CONFUSED THIS MORNING. SHE REPORTS THAT SHE IS SITTING ON A TABLE, WANTS HELP TO GET DOWN. SHE THEN HAS SOME RESOLUTION OF CONFUSION WHEN I AM IN THE ROOM AND REPORTS THAT HER DID NOT WANT AGGRESSIVE SUCTIONING OF HER TRACH - THEY ARE HOPING IT WILL CLOSE ON IT'S OWN AND THUS DO NOT WANT THE SUCTION PLACED IN THE CLOSING TRACH HOLE. Review of Systems General: Fatigue, Malaise Pulmonary: Dyspnea, Cough Cardiovascular: No: Chest Pain Gastrointestinal: No: Abdominal Pain, Nausea Genitourinary: Other (ROMAN IN PLACE) Neurological: Confusion (INTERMITTENT), Weakness Objective Exam Vital Signs Date Time Temp Pulse Resp B/P (MAP) Pulse Ox O2 Delivery O2 Flow Rate FiO2 05/17/16 00:00 97.0 103 16 115/73 94 Nasal Cannula 2.00 05/16/16 21:00 Nasal Cannula 2.00 05/16/16 16:00 96.5 109 20 120/83 97 Nasal Cannula 2.00 05/16/16 12:00 97.0 113 16 117/75 97 Nasal Cannula 2.00 I & O 05/17/16 07:00 Intake Total 5098 ml Output Total 4450 ml Balance 648 ml Capillary Refill : General Appearance: WD/WN, Chronically ill HEENT: PERRL/EOMI Neck: Other (THICK MUCOID DRAINAGE FROM TRACH SITE) Respiratory: Rhonci Cardiovascular: Regular Rate, Rhythm, No Edema Gastrointestinal: normal bowel sounds, non tender, soft, no organomegaly, no pulsatile mass Extremity: Pedal Edema (TRACE) Neurologic/Psychiatric: Alert, Oriented x3 Skin: Warm/Dry Lymphatic: No Adenopathy Results Lab Laboratory Tests 05/17/16 04:05: White Blood Count 6.8, Red Blood Count 3.70L, Hemoglobin 10.7L, Hematocrit 34L, Mean Corpuscular Volume 92, Mean Corpuscular Hemoglobin 29, Mean Corpuscular Hemoglobin Concent 32, Red Cell Distribution Width 14.5, Platelet Count 209, Mean Platelet Volume 10.3, Neutrophils (%) (Auto) 67, Lymphocytes (%) (Auto) 13 , Monocytes (%) (Auto) 11, Eosinophils (%) (Auto) 8, Basophils (%) (Auto) 0, Neutrophils # (Auto) 4.6, Lymphocytes # (Auto) 0.9L, Monocytes # (Auto) 0.7, Eosinophils # (Auto) 0.6H, Basophils # (Auto) 0.0 Microbiology 05/11/16 C. difficile GDH Antigen & Toxins - Final, Resulted 05/11/16 Stool Culture - Preliminary, Resulted No stool pathogens as yet isolated. ... 05/11/16 Gram Stain - Final, Complete 05/11/16 Sputum Culture - Final, Complete Pseudomonas Aeruginosa 05/11/16 Urine Culture - Final, Complete Raoultella Ornithinolytica Enterobacter Cloacae Complex Enterococcus Faecalis Assessment/Plan Assessment/Plan Assess & Plan/Chief Complaint HYPERNATREMIA HYPERKALEMIA URINARY TRACT INFECTION CONFUSION MEDICATION REACTION GENERALIZED WEAKNESS AND [place] METASTATIC BREAST CANCER HYPERNATREMIA AND HYPERKALEMIA - - IMPROVING- CONTINUE WITH IV FLUIDS, MONITOR CMP, CBC. UTI- ON IV ANTIBIOTICS - MONITOR AND ADJUST MEDICATIONS BASED ON URINALYSIS. - VRE ON CULTURE REPORT - ADJUST MEDICATIONS SUNDAY. - PLACED IN ISOLATION. - DID NOT TOLERATE THE LEVAQUIN - PT'S MEDICATION ADJUSTED TO MEROPENEM AND LINEZOLID - CONTINUE THROUGH 05/23/16 CONFUSION - INTERMITTENT CONFUSION - CONTINUE WITH [facility] SUPPORTIVE CARE. MUSCLE WEAKNESS AND MALAISE - FAMILY NOT ABLE TO CARE FOR CONSUELO AT HOME - WILL NEED [facility] PLACEMENT ON DISCHARGE. METASTATIC BREAST CANCER - SUPPORTIVE CARE - PT HAS LESION ON TONSIL - NEED TO HAVE MICHAEL DISCUSSION WITH FAMILY ABOUT PT'S SITUATION - SHE IS TOO FRAIL TO HAVE SURGERY AT THIS TIME. PT TO HAVE POSSIBLE PLACEMENT AT [facility] FOR CARE WITH HOSPICE Clinical Quality Measures DVT/VTE Risk/Contraindication: Risk Factor Score Per Nursin RFS Level Per Nursing on Admit: 4+=Very High BERTA TINOCO MD May 17, 2016 08:45
--- NOTE | 2016-05-17 13:20 | Progress Note (SOAP) ---
Subjective Subjective/Events-last exam Patient appears to be less confused at the time of today's visit that she was yesterday. Objective Exam Vital Signs Date Time Temp Pulse Resp B/P (MAP) Pulse Ox O2 Delivery O2 Flow Rate FiO2 05/17/16 08:05 94 Nasal Cannula 2.00 05/17/16 08:00 97.6 105 20 131/87 94 Nasal Cannula 2.00 05/17/16 00:00 97.0 103 16 115/73 94 Nasal Cannula 2.00 05/16/16 21:00 Nasal Cannula 2.00 05/16/16 16:00 96.5 109 20 120/83 97 Nasal Cannula 2.00 I & O 05/17/16 07:00 Intake Total 5098 ml Output Total 4450 ml Balance 648 ml Capillary Refill : General Appearance: Chronically ill Neck: Non Tender, Other (cardiac tracheostomy opening with thick purulent drainage present) Respiratory: Crackles Cardiovascular: No JVD, Tachycardia Gastrointestinal: normal bowel sounds, other (Feeding tube in place.) Neurologic/Psychiatric: Alert, Motor Weakness Skin: Other (pressure ulcer without broken skin right heel) Results Lab Laboratory Tests 05/17/16 04:05: White Blood Count 6.8, Red Blood Count 3.70L, Hemoglobin 10.7L, Hematocrit 34L, Mean Corpuscular Volume 92, Mean Corpuscular Hemoglobin 29, Mean Corpuscular Hemoglobin Concent 32, Red Cell Distribution Width 14.5, Platelet Count 209, Mean Platelet Volume 10.3, Neutrophils (%) (Auto) 67, Lymphocytes (%) (Auto) 13 , Monocytes (%) (Auto) 11, Eosinophils (%) (Auto) 8, Basophils (%) (Auto) 0, Neutrophils # (Auto) 4.6, Lymphocytes # (Auto) 0.9L, Monocytes # (Auto) 0.7, Eosinophils # (Auto) 0.6H, Basophils # (Auto) 0.0 Microbiology 05/11/16 C. difficile GDH Antigen & Toxins - Final, Resulted 05/11/16 Stool Culture - Preliminary, Resulted No stool pathogens as yet isolated. ... 05/11/16 Gram Stain - Final, Complete 05/11/16 Sputum Culture - Final, Complete Pseudomonas Aeruginosa 05/11/16 Urine Culture - Final, Complete Raoultella Ornithinolytica Enterobacter Cloacae Complex Enterococcus Faecalis Assessment/Plan Assessment/Plan Assess & Plan/Chief Complaint 1. Altered mental status progressive weakness-CT scan head with contrast showed no evidence of tumor recurrence. Urine culture is positive for multiple organisms as listed above and sputum is positive for Pseudomonas which may be arising from colonization. a. Need for lumbar puncture to rule out leptomeningeal metastases has been discussed with who does not want to proceed with this investigation at this time. Patient has metal within her breast implant according to her and can therefore not have an MRI which would be helpful to evaluate for this diagnosis. 2. UTI--Progressive weakness-likely exacerbated by patient's UTI however continue to suspect tumor progression with rising CEA to 7.29 and deteriorating clinical condition. 3. Recurrent Hypercalcemia--normal PTH level on 03/17/16, Calcium has improved with IV rehydration. Continue to monitor. 4. Hypernatremia-administer IV rehydration 5. Hypoxemia-check chest x-ray was no acute process however sputum is growing Pseudomonas which is likely arising from colonization. 6 Metastatic Breast Cancer with Metastasis to Brain (large posterior fossa mass ); a. Status Post near complete resection at [facility] on ; b. Status Post Whole Brain Radiation, 3000 cGy administered from 12/21-01/04/16 c. 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 i.) History of recurrent Pseudomonas pneumonia; ii.) Bilateral vocal cord paralysis requiring prolonged tracheostomy <which was recently removed >and feeding tube placement; d. Faslodex 500 mg IM (days 1, 15, 29 and monthly thereafter) initiated 12/22/15 and last dose given on 04/13/16. 7. Overall prognosis is poor 8. DO NOT RESUSCITATE this patient 9. DVT prophylaxis-Enoxaparin 40mg daily. Clinical Quality Measures DVT/VTE Risk/Contraindication: Risk Factor Score Per Nursin RFS Level Per Nursing on Admit: 4+=Very High ONESIMO HUFFMAN MD May 17, 2016 13:20
[2016-05-17] MEDS: ENOXAPARIN 40 MG/0.4 ML (LOVENOX) SYR SC SCH (14:22)
[2016-05-17 15:35] VITALS: BP 129/76
--- NOTE | 2016-05-17 16:10 | Occupational Ther Daily Note ---
OT Current Status-Daily Note Subjective Pt seen in room, in bed, agreeable to OT. Pt reported seeing people in the room and water on the door curtain that weren't there. Mental Status/Objective Functional [place] Measure 0=Not Assessed/NA 4=Minimal Assistance 1=Total Assistance 5=Supervision or Setup 2=Maximal Assistance 6=Modified [place] 3=Moderate Assistance 7=Complete [place] ADL-Treatment reported Levi has some difficulty washing her face but she attempts to do it. She can brush her teeth if Rj puts the toothbrush in her mouth. She helps reach for the bedrails when rolling and is encouraged to last picker and hold her tissues. Her trach opening is covered and her voice is strong. said he will continue to encourage her to participate as she is able. OT Short Term Goals Short Term Goals 1=Demonstrate adherence to instructed precautions during ADL tasks. 2=Patient will verbalize/demonstrate understanding of assistive devices/ modifications for ADL. 3=Patient will improve strength/tolerance for activity to enable patient to perform ADL's. OT Inspector Handbag Frames Goals Jail Goals Time Frame: May 19, 2016 Family able to encourage [place] ADL participation as her physical status allows 1=Demonstrate adherence to instructed precautions during ADL tasks. 2=Patient will verbalize/demonstrate understanding of assistive devices/ modifications for ADL. 3=Patient will improve strength/tolerance for activity to enable patient to perform ADL's. OT Education/Plan Problem List/Assessment Pt would benefit from family training to encourage her to participate in ADLs as she is able. Goals can be upgraded as her abilities increase. Discharge Recommendations Plan/Recommendations: Continue POC Treatment Plan/Plan of Care Patient would benefit from OT for education, treatment and training to promote independence in ADL's, mobility, safety and/or upper extremity function for ADL' s. Plan of Care: OTHER (Family education in encouraging ADL participation) Treatment Duration: May 19, 2016 Agreement: Yes (family agreement) Rehab Potential: Guarded Time/GCodes Start Time: 15:50 Stop Time: 16:00 Total Time Billed (hr/min): 10 Billed Treatment Time visit, 10 minutes ADL KELLY ATKINS OT May 17, 2016 16:10
[2016-05-17] MEDS: LORazepam INJ 2 MG/ML (ATIVAN) VIAL IVP PRN (23:47)
[2016-05-18 00:02] VITALS: BP 108/66
[2016-05-18] MEDS: 1/2 NS W/KCL 20 MEQ/L 1,000 ML IV SCH ×3 (02:43→22:32)
[2016-05-18] MEDS: MEROPENEM 500 MG in NS (IVPB) 100 ML IV SCH ×3 (05:13→17:36)
[2016-05-18 06:35] LABS: BASOPHILS % (AUTO) 0 % (0-10); EOSINOPHILS # (AUTO) 0.5 10^3/uL (0.0-0.3); EOSINOPHILS % (AUTO) 6 % (0-10); LYMPHOCYTES # (AUTO) 0.9 X 10^3 (1.0-4.0); LYMPHOCYTES % (AUTO) 12 % (12-44); MEAN CORPUSCULAR HEMOGLOBIN 29 PG (25-34); MEAN CORPUSCULAR HGB CONC 32 G/DL (32-36); MEAN CORPUSCULAR VOLUME 92 FL (80-99); MEAN PLATELET VOLUME 10.6 FL (7.4-10.4); MONOCYTES # (AUTO) 0.8 X 10^3 (0.0-1.0); MONOCYTES % (AUTO) 10 % (0-12); NEUTROPHILS # (AUTO) 5.6 X 10^3 (1.8-7.8); NEUTROPHILS % (AUTO) 71 % (42-75); PLATELET COUNT 175 10^3/uL (130-400); RED BLOOD COUNT 3.51 10^6/uL (4.35-5.85); RED CELL DISTRIBUTION WIDTH 14.4 % (10.0-14.5); WHITE BLOOD COUNT 7.8 10^3/uL (4.3-11.0)
[2016-05-18 08:00] VITALS: BP 123/77
--- NOTE | 2016-05-18 08:25 | Progress Note (SOAP) ---
Subjective Subjective/Events-last exam PT IS A 51 Y/O FEMALE WHO IS KNOWN TO ME FROM CLINIC. HER DAUGHTER AND AUNT ARE IN THE ROOM TODAY - REPORTS THAT THEY WILL TALK TO CONSUELO'S ABOUT ALLOWING HER TO GET SUCTION FROM HER TRACH SITE. Review of Systems General: Fatigue HEENT: No Head Aches Pulmonary: Dyspnea, Cough Cardiovascular: No: Chest Pain, Edema Gastrointestinal: No: Nausea Neurological: Confusion, Weakness Objective Exam Vital Signs Date Time Temp Pulse Resp B/P (MAP) Pulse Ox O2 Delivery O2 Flow Rate FiO2 05/18/16 00:02 98.1 101 16 108/66 98 Nasal Cannula 2.00 05/17/16 21:00 Nasal Cannula 2.00 05/17/16 15:35 96.9 112 16 129/76 96 Nasal Cannula 2.00 I & O 05/18/16 07:00 Intake Total 3380 ml Output Total 4650 ml Balance -1270 ml Capillary Refill : General Appearance: WD/WN, Chronically ill, Mild Distress Neck: Supple, Other (THICK MUCUS FROM TRACH SITE) Respiratory: Decreased Breath Sounds, Rhonci Cardiovascular: Regular Rate, Rhythm Gastrointestinal: normal bowel sounds, non tender, soft, no organomegaly, no pulsatile mass Extremity: Normal Capillary Refill, No Pedal Edema Neurologic/Psychiatric: Alert, Disoriented x3 Results Lab Laboratory Tests 05/18/16 05:45: White Blood Count 7.8, Red Blood Count 3.51L, Hemoglobin 10.1L, Hematocrit 32L, Mean Corpuscular Volume 92, Mean Corpuscular Hemoglobin 29, Mean Corpuscular Hemoglobin Concent 32, Red Cell Distribution Width 14.4, Platelet Count 175, Mean Platelet Volume 10.6H, Neutrophils (%) (Auto) 71, Lymphocytes (%) (Auto) 12 , Monocytes (%) (Auto) 10, Eosinophils (%) (Auto) 6, Basophils (%) (Auto) 0, Neutrophils # (Auto) 5.6, Lymphocytes # (Auto) 0.9L, Monocytes # (Auto) 0.8, Eosinophils # (Auto) 0.5H, Basophils # (Auto) 0.0 Microbiology 05/11/16 C. difficile GDH Antigen & Toxins - Final, Resulted 05/11/16 Stool Culture - Preliminary, Resulted No stool pathogens as yet isolated. ... 05/11/16 Gram Stain - Final, Complete 05/11/16 Sputum Culture - Final, Complete Pseudomonas Aeruginosa 05/11/16 Urine Culture - Final, Complete Raoultella Ornithinolytica Enterobacter Cloacae Complex Enterococcus Faecalis Assessment/Plan Assessment/Plan Assess & Plan/Chief Complaint HYPERNATREMIA HYPERKALEMIA URINARY TRACT INFECTION CONFUSION MEDICATION REACTION GENERALIZED WEAKNESS AND MALA[place] METASTATIC BREAST CANCER HYPERNATREMIA AND HYPERKALEMIA - - IMPROVING- CONTINUE WITH IV FLUIDS, MONITOR CMP, CBC. UTI- ON IV ANTIBIOTICS - MONITOR AND ADJUST MEDICATIONS BASED ON URINALYSIS. - VRE ON CULTURE REPORT - ADJUST MEDICATIONS SUNDAY. - PLACED IN ISOLATION. - DID NOT TOLERATE THE LEVAQUIN - PT'S MEDICATION ADJUSTED TO MEROPENEM AND LINEZOLID - CONTINUE THROUGH 05/23/16 CONFUSION - INTERMITTENT CONFUSION - CONTINUE WITH BEST SUPPORTIVE CARE. MUSCLE WEAKNESS AND MALAISE - FAMILY NOT ABLE TO CARE FOR CONSUELO AT HOME - WILL NEED RESIDENTIAL PLACEMENT ON DISCHARGE. METASTATIC BREAST CANCER - SUPPORTIVE CARE - PT HAS LESION ON TONSIL - NEED TO HAVE MICHAEL DISCUSSION WITH FAMILY ABOUT PT'S SITUATION - SHE IS TOO FRAIL TO HAVE SURGERY AT THIS TIME. PT TO HAVE POSSIBLE PLACEMENT AT RESIDENTIAL FOR CARE WITH HOSPICE Clinical Quality Measures DVT/VTE Risk/Contraindication: Risk Factor Score Per Nursin RFS Level Per Nursing on Admit: 4+=Very High BERTA TINOCO MD May 18, 2016 08:25
[2016-05-18 08:39] LABS: ALANINE AMINOTRANSFERASE 31 U/L (0-55); ALBUMIN 3.1 G/DL (3.2-4.5); ANION GAP 8 MMOL/L (5-14); ASPARTATE AMINO TRANSFERASE 25 U/L (5-34); BILIRUBIN,TOTAL 0.2 MG/DL (0.1-1.0); BLOOD UREA NITROGEN 9 MG/DL (7-18); BUN/CREATININE RATIO 17; CALCIUM 9.8 MG/DL (8.5-10.1); CARBON DIOXIDE 31 MMOL/L (21-32); CHLORIDE 99 MMOL/L (98-107); CREATININE SERUM 0.52 MG/DL (0.60-1.30); GFR ESTIMATED > 60; GLUCOSE 105 MG/DL (70-105); POTASSIUM 4.6 MMOL/L (3.6-5.0); SODIUM 138 MMOL/L (135-145); TOTAL PROTEIN 6.4 G/DL (6.4-8.2)
[2016-05-18] MEDS: BENEFIBER (FROM DIETARY) DOCUMENTATION PURPOSE ONLY PO SCH (08:41)
[2016-05-18] MEDS: fluCOnazole (DIFLUCAN) 10MG/ML 35ML BTL JT SCH (08:41)
[2016-05-18] MEDS: MENTHOL/ZINC OXIDE (CALMOSEPTINE) 113 GM TUBE TOP SCH ×2 (08:51→21:01)
[2016-05-18] MEDS: ACETAMINOPHEN 325 MG TABLET/CAPLET (TYLENOL) JT PRN (10:02)
--- NOTE | 2016-05-18 11:51 | Progress Note (SOAP) ---
Subjective Subjective/Events-last exam Patient is somnolent today does arouse to voice. Denies pain. Objective Exam Vital Signs Date Time Temp Pulse Resp B/P (MAP) Pulse Ox O2 Delivery O2 Flow Rate FiO2 05/18/16 10:35 98.1 05/18/16 10:02 98.1 05/18/16 08:00 Nasal Cannula 2.00 05/18/16 08:00 98.3 106 16 123/77 98 Nasal Cannula 2.00 05/18/16 00:02 98.1 101 16 108/66 98 Nasal Cannula 2.00 05/17/16 21:00 Nasal Cannula 2.00 05/17/16 15:35 96.9 112 16 129/76 96 Nasal Cannula 2.00 I & O 05/18/16 07:00 Intake Total 3380 ml Output Total 4650 ml Balance -1270 ml Capillary Refill : General Appearance: Chronically ill Neck: Non Tender Respiratory: Crackles, Other (tracheostomy opening covered with bandage) Cardiovascular: Tachycardia Gastrointestinal: normal bowel sounds, other (tube in place) Neurologic/Psychiatric: Motor Weakness, Other (somnolent but arouses to voice;) Results Lab Laboratory Tests 05/18/16 05:45: White Blood Count 7.8, Red Blood Count 3.51L, Hemoglobin 10.1L, Hematocrit 32L, Mean Corpuscular Volume 92, Mean Corpuscular Hemoglobin 29, Mean Corpuscular Hemoglobin Concent 32, Red Cell Distribution Width 14.4, Platelet Count 175, Mean Platelet Volume 10.6H, Neutrophils (%) (Auto) 71, Lymphocytes (%) (Auto) 12 , Monocytes (%) (Auto) 10, Eosinophils (%) (Auto) 6, Basophils (%) (Auto) 0, Neutrophils # (Auto) 5.6, Lymphocytes # (Auto) 0.9L, Monocytes # (Auto) 0.8, Eosinophils # (Auto) 0.5H, Basophils # (Auto) 0.0, Sodium Level 138, Potassium Level 4.6, Chloride Level 99, Carbon Dioxide Level 31, Anion Gap 8, Blood Urea Nitrogen 9, Creatinine 0.52L, Estimat Glomerular Filtration Rate > 60, BUN/ Creatinine Ratio 17, Glucose Level 105, Calcium Level 9.8, Total Bilirubin 0.2, Aspartate Amino Transf (AST/SGOT) 25, Alanine Aminotransferase (ALT/SGPT) 31, Alkaline Phosphatase 93, Total Protein 6.4, Albumin 3.1L Microbiology 05/11/16 C. difficile GDH Antigen & Toxins - Final, Resulted 05/11/16 Stool Culture - Preliminary, Resulted No stool pathogens as yet isolated. ... 05/11/16 Gram Stain - Final, Complete 05/11/16 Sputum Culture - Final, Complete Pseudomonas Aeruginosa 05/11/16 Urine Culture - Final, Complete Raoultella Ornithinolytica Enterobacter Cloacae Complex Enterococcus Faecalis Assessment/Plan Assessment/Plan Assess & Plan/Chief Complaint 1. Altered mental status progressive weakness- a. Need for lumbar puncture to rule out leptomeningeal metastases has been discussed with who does not want to proceed with this investigation at this time. Patient has metal within her breast implant according to her and can therefore not have an MRI which would be helpful to evaluate for this diagnosis. 2. UTI-- receiving antibiotics. 3. Recurrent Hypercalcemia has resolved--normal PTH level on 03/17/16. Continue to monitor. 4. Chest x-ray was no acute process however sputum is growing Pseudomonas which is likely arising from colonization. 5. Metastatic Breast Cancer with Metastasis to Brain (large posterior fossa mass); a. Status Post near complete resection at [facility] on ; b. Status Post Whole Brain Radiation, 3000 cGy administered from 12/21-01/04/16 c. 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 i.) History of recurrent Pseudomonas pneumonia; ii.) Bilateral vocal cord paralysis requiring prolonged tracheostomy <which was recently removed >and feeding tube placement; d. Faslodex 500 mg IM (days 1, 15, 29 and monthly thereafter) initiated 12/22/15 and last dose given on 04/13/16. 6. Overall prognosis is poor 8. DO NOT RESUSCITATE this patient 9. DVT prophylaxis-Enoxaparin 40mg daily. Clinical Quality Measures DVT/VTE Risk/Contraindication: Risk Factor Score Per Nursin RFS Level Per Nursing on Admit: 4+=Very High ONESIMO HUFFMAN MD May 18, 2016 11:51
[2016-05-18] MEDS: LINEZOLID IVPB 300 ML IV SCH (12:08)
--- NOTE | 2016-05-18 15:23 | Occupational Ther Daily Note ---
OT Current Status-Daily Note Subjective Pt seen in room, asleep in bed. Mental Status/Objective Functional [place] Measure 0=Not Assessed/NA 4=Minimal Assistance 1=Total Assistance 5=Supervision or Setup 2=Maximal Assistance 6=Modified [place] 3=Moderate Assistance 7=Complete [place] ADL-Treatment Talked with patient's Rj. He is very comfortable including Levi in self care activities as she is able. Today she has been sleeping a lot and has participated less. he is OK with discontinuing OT and asking for therapy again if her status changes. DC OT Education OT Patient Education: Instructions to caregiver Response to Teaching: Verbalize Understanding OT Short Term Goals Short Term Goals 1=Demonstrate adherence to instructed precautions during ADL tasks. 2=Patient will verbalize/demonstrate understanding of assistive devices/ modifications for ADL. 3=Patient will improve strength/tolerance for activity to enable patient to perform ADL's. OT Fdc Goals Senior Hris Analyst Goals Time Frame: May 19, 2016 Family able to encourage Levi's ADL participation as her physical status allows - met 3--17 1=Demonstrate adherence to instructed precautions during ADL tasks. 2=Patient will verbalize/demonstrate understanding of assistive devices/ modifications for ADL. 3=Patient will improve strength/tolerance for activity to enable patient to perform ADL's. OT Education/Plan Problem List/Assessment Pt would benefit from family training to encourage her to participate in ADLs as she is able. Goals can be upgraded as her abilities increase. Discharge Recommendations Plan/Recommendations: Discharge/Goals Met Treatment Plan/Plan of Care Patient would benefit from OT for education, treatment and training to promote independence in ADL's, mobility, safety and/or upper extremity function for ADL' s. Plan of Care: OTHER (Family education in encouraging ADL participation) Treatment Duration: May 19, 2016 Visits Per Week: 5 Agreement: Yes (family agreement) Rehab Potential: Guarded Time/GCodes Start Time: 15:15 Stop Time: 15:20 Total Time Billed (hr/min): 5 Billed Treatment Time visit, 5 minutes visit KELLY ATKINS OT May 18, 2016 15:23
[2016-05-18 15:45] VITALS: BP 117/59
[2016-05-18] MEDS: ENOXAPARIN 40 MG/0.4 ML (LOVENOX) SYR SC SCH (17:36)
[2016-05-19] VITALS: BP 135/85
[2016-05-19] MEDS: LORazepam INJ 2 MG/ML (ATIVAN) VIAL IVP PRN ×2 (00:15→14:43)
[2016-05-19] MEDS: MEROPENEM 500 MG in NS (IVPB) 100 ML IV SCH ×5 (00:15→23:40)
[2016-05-19] MEDS: LINEZOLID IVPB 300 ML IV SCH ×2 (00:52→12:07)
[2016-05-19 06:39] LABS: BASOPHILS % (AUTO) 0 % (0-10); EOSINOPHILS # (AUTO) 0.5 10^3/uL (0.0-0.3); EOSINOPHILS % (AUTO) 7 % (0-10); LYMPHOCYTES # (AUTO) 0.8 X 10^3 (1.0-4.0); LYMPHOCYTES % (AUTO) 11 % (12-44); MEAN CORPUSCULAR HEMOGLOBIN 29 PG (25-34); MEAN CORPUSCULAR HGB CONC 32 G/DL (32-36); MEAN CORPUSCULAR VOLUME 91 FL (80-99); MONOCYTES # (AUTO) 0.7 X 10^3 (0.0-1.0); MONOCYTES % (AUTO) 9 % (0-12); NEUTROPHILS # (AUTO) 5.1 X 10^3 (1.8-7.8); NEUTROPHILS % (AUTO) 73 % (42-75); PLATELET COUNT 216 10^3/uL (130-400); RED BLOOD COUNT 3.97 10^6/uL (4.35-5.85); RED CELL DISTRIBUTION WIDTH 14.3 % (10.0-14.5); WHITE BLOOD COUNT 7.1 10^3/uL (4.3-11.0)
[2016-05-19 08:00] VITALS: BP 129/92
[2016-05-19] MEDS: 1/2 NS W/KCL 20 MEQ/L 1,000 ML IV SCH ×3 (08:51→18:49)
[2016-05-19] MEDS: BENEFIBER (FROM DIETARY) DOCUMENTATION PURPOSE ONLY PO SCH (08:52)
[2016-05-19] MEDS: MENTHOL/ZINC OXIDE (CALMOSEPTINE) 113 GM TUBE TOP SCH ×2 (08:53→23:15)
--- NOTE | 2016-05-19 10:33 | Progress Note (SOAP) ---
Subjective Subjective/Events-last exam PT REPORTS THAT SHE IS "OKAY" TODAY - THEN ASKS A QUESTION THAT IS NONSENSE THIS MORNING. DISCUSSED PT WITH NURSING STAFF AND VEHICLE CONTROLS ENGINEER. FAMILY IS AGREEABLE TO INVESTIGATING RETIREMENT PLACEMENT FOR NEXT WEEK. Review of Systems General: Fatigue HEENT: Dysphasia Pulmonary: Dyspnea, Cough Cardiovascular: No: Chest Pain Genitourinary: Other (ROMAN IN PLACE) Neurological: Confusion, Weakness Objective Exam Vital Signs Date Time Temp Pulse Resp B/P (MAP) Pulse Ox O2 Delivery O2 Flow Rate FiO2 05/19/16 08:00 97.9 106 12 129/92 95 Nasal Cannula 2.00 05/19/16 08:00 Nasal Cannula 3.00 05/19/16 00:00 98.4 96 18 135/85 95 Nasal Cannula 2.00 05/18/16 19:30 94 Nasal Cannula 2.00 05/18/16 15:45 97.1 107 24 117/59 94 Nasal Cannula 2.00 05/18/16 10:35 98.1 I & O 05/19/16 07:00 Intake Total 2687 ml Output Total 4875 ml Balance -2188 ml Capillary Refill : General Appearance: Chronically ill, Mild Distress Neck: Other (OPEN TRACH SITE WITH THICK MUCOID DRAINAGE FROM TRACH SITE) Respiratory: Chest Non Tender, Rhonci Cardiovascular: Regular Rate, Rhythm Gastrointestinal: normal bowel sounds, non tender, soft, no organomegaly, no pulsatile mass, other (JTUBE IN LEFT MID ABDOMEN) Neurologic/Psychiatric: Alert, Disoriented x3 Skin: Warm/Dry Lymphatic: No Adenopathy Results Lab Laboratory Tests 05/19/16 06:17: White Blood Count 7.1, Red Blood Count 3.97L, Hemoglobin 11.6, Hematocrit 36, Mean Corpuscular Volume 91, Mean Corpuscular Hemoglobin 29, Mean Corpuscular Hemoglobin Concent 32, Red Cell Distribution Width 14.3, Platelet Count 216, Mean Platelet Volume 10.0, Neutrophils (%) (Auto) 73, Lymphocytes (%) (Auto) 11L , Monocytes (%) (Auto) 9, Eosinophils (%) (Auto) 7, Basophils (%) (Auto) 0, Neutrophils # (Auto) 5.1, Lymphocytes # (Auto) 0.8L, Monocytes # (Auto) 0.7, Eosinophils # (Auto) 0.5H, Basophils # (Auto) 0.0 Microbiology 05/11/16 C. difficile GDH Antigen & Toxins - Final, Complete 05/11/16 Stool Culture - Final, Complete Negative for Salmonella... 05/11/16 Gram Stain - Final, Complete 05/11/16 Sputum Culture - Final, Complete Pseudomonas Aeruginosa 05/11/16 Urine Culture - Final, Complete Raoultella Ornithinolytica Enterobacter Cloacae Complex Enterococcus Faecalis Assessment/Plan Assessment/Plan Assess & Plan/Chief Complaint HYPERNATREMIA HYPERKALEMIA URINARY TRACT INFECTION CONFUSION MEDICATION REACTION GENERALIZED WEAKNESS AND [place] METASTATIC BREAST CANCER HYPERNATREMIA AND HYPERKALEMIA - - IMPROVING- CONTINUE WITH IV FLUIDS, MONITOR CMP, CBC. UTI- ON IV ANTIBIOTICS - MONITOR AND ADJUST MEDICATIONS BASED ON URINALYSIS. - VRE ON CULTURE REPORT - . - PLACED IN ISOLATION. - DID NOT TOLERATE THE LEVAQUIN - PT'S MEDICATION ADJUSTED TO MEROPENEM AND LINEZOLID - CONTINUE THROUGH 05/23/16 CONFUSION - INTERMITTENT CONFUSION - CONTINUE WITH BEST SUPPORTIVE CARE. MUSCLE WEAKNESS AND MALAISE - FAMILY NOT ABLE TO CARE FOR CONSUELO AT HOME - WILL NEED RETIREMENT PLACEMENT ON DISCHARGE. - LOOKING INTO RETIREMENT PLACEMENT WITH [facility] METASTATIC BREAST CANCER - SUPPORTIVE CARE - PT HAS LESION ON TONSIL - NEED TO HAVE MICHAEL DISCUSSION WITH FAMILY ABOUT PT'S SITUATION - SHE IS TOO FRAIL TO HAVE SURGERY AT THIS TIME. THICK DRAINAGE FROM TRACH - NOT WANTING SUCTION - START GLYCOPYRROLATE TODAY Clinical Quality Measures DVT/VTE Risk/Contraindication: Risk Factor Score Per Nursin RFS Level Per Nursing on Admit: 4+=Very High BERTA TINOCO MD May 19, 2016 10:33
[2016-05-19] MEDS: GLYCOPYRROLATE 0.2 MG/ML (ROBINUL) 2 ML VIAL IV SCH ×3 (12:01→20:32)
[2016-05-19] MEDS: ACETAMINOPHEN 325 MG TABLET/CAPLET (TYLENOL) JT PRN ×2 (14:24→23:37)
--- NOTE | 2016-05-19 16:00 | Progress Note (SOAP) ---
Subjective Subjective/Events-last exam No complaints of pain; Awake and appropriately responsive to questions. Family at bedside; Objective Exam Vital Signs Date Time Temp Pulse Resp B/P (MAP) Pulse Ox O2 Delivery O2 Flow Rate FiO2 05/19/16 08:00 97.9 106 12 129/92 95 Nasal Cannula 2.00 05/19/16 08:00 Nasal Cannula 3.00 05/19/16 00:00 98.4 96 18 135/85 95 Nasal Cannula 2.00 05/18/16 19:30 94 Nasal Cannula 2.00 I & O 05/19/16 06:59 Intake Total 2687 ml Output Total 4875 ml Balance -2188 ml Capillary Refill : General Appearance: Chronically ill HEENT: PERRL/EOMI Neck: Non Tender, Other (Tracheostomy stoma covered with dressing;) Respiratory: Crackles Cardiovascular: Regular Rate, Rhythm Gastrointestinal: normal bowel sounds, other (Feeding tube in place;) Extremity: Other (Pressure ulcer right heel;) Neurologic/Psychiatric: Motor Weakness Results Lab Laboratory Tests 05/19/16 06:17: White Blood Count 7.1, Red Blood Count 3.97L, Hemoglobin 11.6, Hematocrit 36, Mean Corpuscular Volume 91, Mean Corpuscular Hemoglobin 29, Mean Corpuscular Hemoglobin Concent 32, Red Cell Distribution Width 14.3, Platelet Count 216, Mean Platelet Volume 10.0, Neutrophils (%) (Auto) 73, Lymphocytes (%) (Auto) 11L , Monocytes (%) (Auto) 9, Eosinophils (%) (Auto) 7, Basophils (%) (Auto) 0, Neutrophils # (Auto) 5.1, Lymphocytes # (Auto) 0.8L, Monocytes # (Auto) 0.7, Eosinophils # (Auto) 0.5H, Basophils # (Auto) 0.0 Microbiology 05/11/16 C. difficile GDH Antigen & Toxins - Final, Complete 05/11/16 Stool Culture - Final, Complete Negative for Salmonella... 05/11/16 Gram Stain - Final, Complete 05/11/16 Sputum Culture - Final, Complete Pseudomonas Aeruginosa 05/11/16 Urine Culture - Final, Complete Raoultella Ornithinolytica Enterobacter Cloacae Complex Enterococcus Faecalis Assessment/Plan Assessment/Plan Assess & Plan/Chief Complaint 1. Altered mental status progressive weakness- a. Need for lumbar puncture to rule out leptomeningeal metastases has been discussed with who does not want to proceed with this investigation at this time. Patient has metal within her breast implant according to her and can therefore not have an MRI which would be helpful to evaluate for this diagnosis. 2. UTI-- receiving antibiotics. 3. Recurrent Hypercalcemia has resolved--normal PTH level on 03/17/16. Continue to monitor. 4. Chest x-ray was no acute process however sputum is growing Pseudomonas which is likely arising from colonization. 5. Metastatic Breast Cancer with Metastasis to Brain (large posterior fossa mass); a. Status Post near complete resection at [facility] on ; b. Status Post Whole Brain Radiation, 3000 cGy administered from 12/21-01/04/16 c. 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 i.) History of recurrent Pseudomonas pneumonia; ii.) Bilateral vocal cord paralysis requiring prolonged tracheostomy <which was recently removed >and feeding tube placement; d. Faslodex 500 mg IM (days 1, 15, 29 and monthly thereafter) initiated 12/22/15 and last dose given on 04/13/16. 6. Overall prognosis is poor 8. DO NOT RESUSCITATE this patient 9. DVT prophylaxis-Enoxaparin 40mg daily. Clinical Quality Measures DVT/VTE Risk/Contraindication: Risk Factor Score Per Nursin RFS Level Per Nursing on Admit: 4+=Very High ONESIMO HUFFMAN MD May 19, 2016 16:00
[2016-05-19] MEDS: ENOXAPARIN 40 MG/0.4 ML (LOVENOX) SYR SC SCH (16:45)
[2016-05-19 16:55] VITALS: BP 134/73
[2016-05-19 23:15] VITALS: BP 130/70
[2016-05-20] MEDS: LORazepam INJ 2 MG/ML (ATIVAN) VIAL IVP PRN ×2 (00:27→15:20)
[2016-05-20] MEDS: LINEZOLID IVPB 300 ML IV SCH ×2 (00:27→12:24)
[2016-05-20] MEDS: GLYCOPYRROLATE 0.2 MG/ML (ROBINUL) 2 ML VIAL IV SCH ×7 (00:27→23:49)
[2016-05-20 04:55] LABS: BASOPHILS % (AUTO) 0 % (0-10); EOSINOPHILS # (AUTO) 0.3 10^3/uL (0.0-0.3); EOSINOPHILS % (AUTO) 3 % (0-10); LYMPHOCYTES # (AUTO) 0.8 X 10^3 (1.0-4.0); LYMPHOCYTES % (AUTO) 7 % (12-44); MEAN CORPUSCULAR HEMOGLOBIN 29 PG (25-34); MEAN CORPUSCULAR HGB CONC 32 G/DL (32-36); MEAN CORPUSCULAR VOLUME 91 FL (80-99); MEAN PLATELET VOLUME 9.3 FL (7.4-10.4); MONOCYTES # (AUTO) 0.8 X 10^3 (0.0-1.0); MONOCYTES % (AUTO) 7 % (0-12); NEUTROPHILS # (AUTO) 9.5 X 10^3 (1.8-7.8); NEUTROPHILS % (AUTO) 83 % (42-75); PLATELET COUNT 242 10^3/uL (130-400); RED BLOOD COUNT 3.64 10^6/uL (4.35-5.85); RED CELL DISTRIBUTION WIDTH 14.3 % (10.0-14.5); WHITE BLOOD COUNT 11.4 10^3/uL (4.3-11.0)
[2016-05-20 05:18] LABS: ANION GAP 10 MMOL/L (5-14); BLOOD UREA NITROGEN 10 MG/DL (7-18); BUN/CREATININE RATIO 19; CALCIUM 9.6 MG/DL (8.5-10.1); CARBON DIOXIDE 30 MMOL/L (21-32); CHLORIDE 96 MMOL/L (98-107); CREATININE SERUM 0.53 MG/DL (0.60-1.30); GFR ESTIMATED > 60; GLUCOSE 104 MG/DL (70-105); POTASSIUM 4.3 MMOL/L (3.6-5.0); SODIUM 136 MMOL/L (135-145)
[2016-05-20] MEDS: MEROPENEM 500 MG in NS (IVPB) 100 ML IV SCH ×4 (05:41→23:49)
[2016-05-20 08:00] VITALS: BP 128/67
[2016-05-20] MEDS: MENTHOL/ZINC OXIDE (CALMOSEPTINE) 113 GM TUBE TOP SCH ×2 (08:18→20:33)
[2016-05-20] MEDS: 1/2 NS W/KCL 20 MEQ/L 1,000 ML IV SCH ×3 (08:18→17:44)
[2016-05-20] MEDS: BENEFIBER (FROM DIETARY) DOCUMENTATION PURPOSE ONLY PO SCH (11:36)
[2016-05-20] MEDS: ENOXAPARIN 40 MG/0.4 ML (LOVENOX) SYR SC SCH (15:21)
[2016-05-20 15:35] VITALS: BP 133/70
--- NOTE | 2016-05-20 15:55 | Progress Note (SOAP) ---
Subjective Subjective/Events-last exam and parents are at bedside. Patient is sleeping. Objective Exam Vital Signs Date Time Temp Pulse Resp B/P (MAP) Pulse Ox O2 Delivery O2 Flow Rate FiO2 05/20/16 15:08 3.00 05/20/16 08:30 Nasal Cannula 3.00 05/20/16 08:00 98.9 102 18 128/67 96 Nasal Cannula 2.00 05/19/16 23:15 97.6 109 20 130/70 98 Nasal Cannula 2.00 05/19/16 22:00 Nasal Cannula 3.00 05/19/16 18:52 3.00 05/19/16 16:55 98.1 127 16 134/73 97 Nasal Cannula 2.00 I & O 05/20/16 06:59 Intake Total 3379 ml Output Total 3550 ml Balance -171 ml Capillary Refill : General Appearance: Chronically ill Neck: Non Tender, Supple Respiratory: Crackles Cardiovascular: Tachycardia Gastrointestinal: normal bowel sounds, non tender, soft, other (JPEG tube in place;) Neurologic/Psychiatric: Motor Weakness Results Lab Laboratory Tests 05/20/16 04:45: White Blood Count 11.4H, Red Blood Count 3.64L, Hemoglobin 10.4L, Hematocrit 33L , Mean Corpuscular Volume 91, Mean Corpuscular Hemoglobin 29, Mean Corpuscular Hemoglobin Concent 32, Red Cell Distribution Width 14.3, Platelet Count 242, Mean Platelet Volume 9.3, Neutrophils (%) (Auto) 83H, Lymphocytes (%) (Auto) 7L , Monocytes (%) (Auto) 7, Eosinophils (%) (Auto) 3, Basophils (%) (Auto) 0, Neutrophils # (Auto) 9.5H, Lymphocytes # (Auto) 0.8L, Monocytes # (Auto) 0.8, Eosinophils # (Auto) 0.3, Basophils # (Auto) 0.0, Sodium Level 136, Potassium Level 4.3, Chloride Level 96L, Carbon Dioxide Level 30, Anion Gap 10, Blood Urea Nitrogen 10, Creatinine 0.53L, Estimat Glomerular Filtration Rate > 60, BUN /Creatinine Ratio 19, Glucose Level 104, Calcium Level 9.6 Microbiology 05/11/16 C. difficile GDH Antigen & Toxins - Final, Complete 05/11/16 Stool Culture - Final, Complete Negative for Salmonella... 05/11/16 Gram Stain - Final, Complete 05/11/16 Sputum Culture - Final, Complete Pseudomonas Aeruginosa 05/11/16 Urine Culture - Final, Complete Raoultella Ornithinolytica Enterobacter Cloacae Complex Enterococcus Faecalis Laboratory Tests 05/19/16 06:17 05/20/16 04:45 Assessment/Plan Assessment/Plan Assess & Plan/Chief Complaint 1. Altered mental status progressive weakness persists; a. Need for lumbar puncture to rule out leptomeningeal metastases has been discussed with who does not want to proceed with this investigation at this time. Patient has metal within her breast implant according to her and can therefore not have an MRI which would be helpful to evaluate for this diagnosis. 2. UTI-- receiving antibiotics. 3. Recurrent Hypercalcemia has resolved--normal PTH level on 03/17/16. Continue to monitor. 4. Chest x-ray was no acute process however sputum is growing Pseudomonas which is likely arising from colonization. 5. Metastatic Breast Cancer with Metastasis to Brain (large posterior fossa mass); a. Status Post near complete resection at [facility] on ; b. Status Post Whole Brain Radiation, 3000 cGy administered from 12/21-01/04/16 c. 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 i.) History of recurrent Pseudomonas pneumonia; ii.) Bilateral vocal cord paralysis requiring prolonged tracheostomy <which was recently removed >and feeding tube placement; d. Faslodex 500 mg IM (days 1, 15, 29 and monthly thereafter) initiated 12/22/15 and last dose given on 04/13/16. 6. Overall prognosis is poor 8. DO NOT RESUSCITATE this patient 9. DVT prophylaxis-Enoxaparin 40mg daily. Clinical Quality Measures DVT/VTE Risk/Contraindication: Risk Factor Score Per Nursin RFS Level Per Nursing on Admit: 4+=Very High ONESIMO HUFFMAN MD May 20, 2016 15:55
[2016-05-20 22:35] VITALS: BP 132/61
[2016-05-21] MEDS: LORazepam INJ 2 MG/ML (ATIVAN) VIAL IVP PRN ×2 (00:46→15:31)
[2016-05-21] MEDS: LINEZOLID IVPB 300 ML IV SCH ×2 (00:48→14:00)
[2016-05-21] MEDS: GLYCOPYRROLATE 0.2 MG/ML (ROBINUL) 2 ML VIAL IV SCH ×6 (03:37→23:03)
[2016-05-21 04:56] LABS: BASOPHILS % (AUTO) 0 % (0-10); EOSINOPHILS # (AUTO) 0.3 10^3/uL (0.0-0.3); EOSINOPHILS % (AUTO) 4 % (0-10); LYMPHOCYTES % (AUTO) 15 % (12-44); MEAN CORPUSCULAR HEMOGLOBIN 29 PG (25-34); MEAN CORPUSCULAR HGB CONC 32 G/DL (32-36); MEAN CORPUSCULAR VOLUME 89 FL (80-99); MEAN PLATELET VOLUME 9.8 FL (7.4-10.4); MONOCYTES # (AUTO) 0.5 X 10^3 (0.0-1.0); MONOCYTES % (AUTO) 8 % (0-12); NEUTROPHILS # (AUTO) 4.4 X 10^3 (1.8-7.8); NEUTROPHILS % (AUTO) 72 % (42-75); PLATELET COUNT 208 10^3/uL (130-400); RED BLOOD COUNT 3.84 10^6/uL (4.35-5.85); RED CELL DISTRIBUTION WIDTH 14.1 % (10.0-14.5); WHITE BLOOD COUNT 6.2 10^3/uL (4.3-11.0)
[2016-05-21 05:19] LABS: ANION GAP 10 MMOL/L (5-14); BLOOD UREA NITROGEN 11 MG/DL (7-18); BUN/CREATININE RATIO 21; CALCIUM 9.8 MG/DL (8.5-10.1); CARBON DIOXIDE 30 MMOL/L (21-32); CHLORIDE 96 MMOL/L (98-107); CREATININE SERUM 0.52 MG/DL (0.60-1.30); GFR ESTIMATED > 60; GLUCOSE 113 MG/DL (70-105); POTASSIUM 4.5 MMOL/L (3.6-5.0); SODIUM 136 MMOL/L (135-145)
[2016-05-21] MEDS: MEROPENEM 500 MG in NS (IVPB) 100 ML IV SCH ×4 (05:48→23:13)
[2016-05-21] MEDS: 1/2 NS W/KCL 20 MEQ/L 1,000 ML IV SCH ×3 (07:44→22:53)
[2016-05-21 08:00] VITALS: BP 133/68
[2016-05-21] MEDS: MENTHOL/ZINC OXIDE (CALMOSEPTINE) 113 GM TUBE TOP SCH ×2 (09:12→20:53)
[2016-05-21] MEDS: BENEFIBER (FROM DIETARY) DOCUMENTATION PURPOSE ONLY PO SCH (09:13)
--- NOTE | 2016-05-21 11:15 | Progress Note (SOAP) ---
Subjective Subjective 51 yo F- no overnight events- at bedside taking care of Kolton Sims became upset with herself because she forgot her 's name and began to apologize. Review of Systems General: Fatigue HEENT: Dysphasia Pulmonary: Dyspnea, Cough Cardiovascular: No: Chest Pain Gastrointestinal: No: Nausea Genitourinary: Other (ROMAN IN PLACE) Neurological: Confusion, Weakness All Other Systems Reviewed All Other Systems Reviewed: Yes Objective Exam Vital Signs Vital Signs Date Time Temp Pulse Resp B/P (MAP) Pulse Ox O2 Delivery O2 Flow Rate FiO2 05/21/16 08:00 99.1 103 20 133/68 98 Nasal Cannula 3.00 05/20/16 23:04 2.00 05/20/16 22:35 99.5 109 16 132/61 97 Nasal Cannula 3.00 05/20/16 20:30 Nasal Cannula 3.00 05/20/16 15:35 98.1 120 18 133/70 98 Nasal Cannula 2.00 05/20/16 15:08 3.00 I & O 05/21/16 07:00 Intake Total 3190 ml Output Total 5200 ml Balance -2010 ml General Appearance: Chronically ill HEENT: PERRL/EOMI Neck: Non Tender, Supple Respiratory: Chest Non Tender, Normal Breath Sounds, No Accessory Muscle Use, Crackles Cardiovascular: Regular Rate, Rhythm, Tachycardia Gastrointestinal: Normal Bowel Sounds, Non Tender, Soft, Other Rectal: Deferred, Other (sacral decubitus present;) Extremity: Other (Pressure ulcer right heel;) Neurologic/Psychiatric: Alert, Motor Weakness Skin: Warm/Dry Results Lab Laboratory Tests 05/21/16 04:30: White Blood Count 6.2, Red Blood Count 3.84L, Hemoglobin 11.0L, Hematocrit 34L, Mean Corpuscular Volume 89, Mean Corpuscular Hemoglobin 29, Mean Corpuscular Hemoglobin Concent 32, Red Cell Distribution Width 14.1, Platelet Count 208, Mean Platelet Volume 9.8, Neutrophils (%) (Auto) 72, Lymphocytes (%) (Auto) 15, Monocytes (%) (Auto) 8, Eosinophils (%) (Auto) 4, Basophils (%) (Auto) 0, Neutrophils # (Auto) 4.4, Lymphocytes # (Auto) 1.0, Monocytes # (Auto) 0.5, Eosinophils # (Auto) 0.3, Basophils # (Auto) 0.0, Sodium Level 136, Potassium Level 4.5, Chloride Level 96L, Carbon Dioxide Level 30, Anion Gap 10, Blood Urea Nitrogen 11, Creatinine 0.52L, Estimat Glomerular Filtration Rate > 60, BUN /Creatinine Ratio 21, Glucose Level 113H, Calcium Level 9.8 Microbiology 05/11/16 C. difficile GDH Antigen & Toxins - Final, Complete 05/11/16 Stool Culture - Final, Complete Negative for Salmonella... 05/11/16 Gram Stain - Final, Complete 05/11/16 Sputum Culture - Final, Complete Pseudomonas Aeruginosa 05/11/16 Urine Culture - Final, Complete Raoultella Ornithinolytica Enterobacter Cloacae Complex Enterococcus Faecalis Assessment/Plan Assessment/Plan Assessment/Plan 51 yo F metastatic breast cancer- with mets to brain- Dr. Bardales, oncology- appears to be declining. Encephalopathy likely from metastatic breast cancer. - monitor UTI- on meropenem, linezolid will complete course 05/23/16 RAOULTELLA ORNITHINOLYTICA ENTEROBACTER CLOACAE COMPLEX ENTEROCOCCUS FAECALIS -VRE Dispo: Pt likely to [facility] or home this week. Prognosis poor. Problems: Clinical Quality Measures DVT/VTE Risk/Contraindication: Risk Factor Score Per Nursin RFS Level Per Nursing on Admit: 4+=Very High LISSET BLANKENSHIP MD May 21, 2016 11:15
[2016-05-21] MEDS: ACETAMINOPHEN 325 MG TABLET/CAPLET (TYLENOL) JT PRN (11:23)
--- NOTE | 2016-05-21 13:33 | Progress Note (SOAP) ---
Subjective Subjective/Events-last exam Awake and denies pain; Objective Exam Vital Signs Date Time Temp Pulse Resp B/P (MAP) Pulse Ox O2 Delivery O2 Flow Rate FiO2 05/21/16 12:00 99.1 05/21/16 08:00 99.1 103 20 133/68 98 Nasal Cannula 3.00 05/20/16 23:04 2.00 05/20/16 22:35 99.5 109 16 132/61 97 Nasal Cannula 3.00 05/20/16 20:30 Nasal Cannula 3.00 05/20/16 15:35 98.1 120 18 133/70 98 Nasal Cannula 2.00 05/20/16 15:08 3.00 I & O 05/21/16 06:59 Intake Total 3190 ml Output Total 5200 ml Balance -2010 ml Capillary Refill : General Appearance: No Apparent Distress, Chronically ill Neck: Supple, Other (Tracheostomy opening covered with dressing;) Respiratory: Crackles Cardiovascular: Tachycardia Gastrointestinal: normal bowel sounds (feeding tube in place;), non tender, soft Neurologic/Psychiatric: Motor Weakness Results Lab Laboratory Tests 05/21/16 04:30: White Blood Count 6.2, Red Blood Count 3.84L, Hemoglobin 11.0L, Hematocrit 34L, Mean Corpuscular Volume 89, Mean Corpuscular Hemoglobin 29, Mean Corpuscular Hemoglobin Concent 32, Red Cell Distribution Width 14.1, Platelet Count 208, Mean Platelet Volume 9.8, Neutrophils (%) (Auto) 72, Lymphocytes (%) (Auto) 15, Monocytes (%) (Auto) 8, Eosinophils (%) (Auto) 4, Basophils (%) (Auto) 0, Neutrophils # (Auto) 4.4, Lymphocytes # (Auto) 1.0, Monocytes # (Auto) 0.5, Eosinophils # (Auto) 0.3, Basophils # (Auto) 0.0, Sodium Level 136, Potassium Level 4.5, Chloride Level 96L, Carbon Dioxide Level 30, Anion Gap 10, Blood Urea Nitrogen 11, Creatinine 0.52L, Estimat Glomerular Filtration Rate > 60, BUN /Creatinine Ratio 21, Glucose Level 113H, Calcium Level 9.8 Microbiology 05/11/16 C. difficile GDH Antigen & Toxins - Final, Complete 05/11/16 Stool Culture - Final, Complete Negative for Salmonella... 05/11/16 Gram Stain - Final, Complete 05/11/16 Sputum Culture - Final, Complete Pseudomonas Aeruginosa 05/11/16 Urine Culture - Final, Complete Raoultella Ornithinolytica Enterobacter Cloacae Complex Enterococcus Faecalis Laboratory Tests 05/20/16 04:45 05/21/16 04:30 Assessment/Plan Assessment/Plan Assess & Plan/Chief Complaint 1. Altered mental status progressive weakness persists; a. Need for lumbar puncture to rule out leptomeningeal metastases has been discussed with who does not want to proceed with this investigation at all. 2. UTI-- receiving antibiotics. 3. Recurrent Hypercalcemia has resolved--normal PTH level on 03/17/16. Continue to monitor. 4. Chest x-ray was no acute process however sputum is growing Pseudomonas which is likely arising from colonization. 5. Metastatic Breast Cancer with Metastasis to Brain (large posterior fossa mass); a. Status Post near complete resection at [facility] on ; b. Status Post Whole Brain Radiation, 3000 cGy administered from 12/21-01/04/16 c. 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 i.) History of recurrent Pseudomonas pneumonia; ii.) Bilateral vocal cord paralysis requiring prolonged tracheostomy <which was recently removed >and feeding tube placement; d. Faslodex 500 mg IM (days 1, 15, 29 and monthly thereafter) initiated 12/22/15 and last dose given on 04/13/16. 6. Overall prognosis is poor and deteriorating. 8. DO NOT RESUSCITATE this patient 9. DVT prophylaxis-Enoxaparin 40mg daily. Clinical Quality Measures DVT/VTE Risk/Contraindication: Risk Factor Score Per Nursin RFS Level Per Nursing on Admit: 4+=Very High ONESIMO HUFFMAN MD May 21, 2016 13:33
[2016-05-21] MEDS: ENOXAPARIN 40 MG/0.4 ML (LOVENOX) SYR SC SCH (15:31)
[2016-05-21 16:00] VITALS: BP 121/68
[2016-05-22] VITALS: BP 124/75
[2016-05-22] MEDS: LORazepam INJ 2 MG/ML (ATIVAN) VIAL IVP PRN ×2 (00:18→23:51)
[2016-05-22] MEDS: 1/2 NS W/KCL 20 MEQ/L 1,000 ML IV SCH ×3 (00:18→23:06)
[2016-05-22] MEDS: LINEZOLID IVPB 300 ML IV SCH ×2 (00:18→13:13)
[2016-05-22] MEDS: GLYCOPYRROLATE 0.2 MG/ML (ROBINUL) 2 ML VIAL IV SCH ×6 (03:42→23:06)
[2016-05-22 06:06] LABS: BASOPHILS % (AUTO) 0 % (0-10); EOSINOPHILS # (AUTO) 0.3 10^3/uL (0.0-0.3); EOSINOPHILS % (AUTO) 4 % (0-10); LYMPHOCYTES % (AUTO) 13 % (12-44); MEAN CORPUSCULAR HEMOGLOBIN 29 PG (25-34); MEAN CORPUSCULAR HGB CONC 32 G/DL (32-36); MEAN CORPUSCULAR VOLUME 88 FL (80-99); MEAN PLATELET VOLUME 9.8 FL (7.4-10.4); MONOCYTES # (AUTO) 0.6 X 10^3 (0.0-1.0); MONOCYTES % (AUTO) 9 % (0-12); NEUTROPHILS # (AUTO) 5.3 X 10^3 (1.8-7.8); NEUTROPHILS % (AUTO) 74 % (42-75); PLATELET COUNT 197 10^3/uL (130-400); RED BLOOD COUNT 3.77 10^6/uL (4.35-5.85); RED CELL DISTRIBUTION WIDTH 13.9 % (10.0-14.5); WHITE BLOOD COUNT 7.3 10^3/uL (4.3-11.0)
[2016-05-22] MEDS: MEROPENEM 500 MG in NS (IVPB) 100 ML IV SCH ×4 (06:44→23:51)
--- NOTE | 2016-05-22 07:54 | Progress Note (SOAP) ---
Subjective Subjective/Events-last exam PT IS A 51 Y/O FEMALE WHO IS KNOWN TO ME FROM CLINIC. SHE WAS CONFUSED THIS MORNING. SHE REPORTS NO DISCOMFORT. STAFF REPORTS SOME RESTLESSNESS LAST NIGHT. Review of Systems General: Fatigue (F) Pulmonary: Dyspnea, Cough Gastrointestinal: No: Nausea Neurological: Confusion, Weakness Objective Exam Vital Signs Date Time Temp Pulse Resp B/P (MAP) Pulse Ox O2 Delivery O2 Flow Rate FiO2 05/22/16 07:42 3.00 05/22/16 00:00 99.6 102 20 124/75 97 Nasal Cannula 3.00 05/21/16 20:00 Nasal Cannula 3.00 05/21/16 19:03 2.00 05/21/16 16:00 99.2 106 20 121/68 97 Nasal Cannula 3.00 05/21/16 12:00 99.1 05/21/16 09:00 Nasal Cannula 3.00 05/21/16 08:00 99.1 103 20 133/68 98 Nasal Cannula 3.00 I & O 05/22/16 07:00 Intake Total 2440 ml Output Total 3675 ml Balance -1235 ml Capillary Refill : General Appearance: WD/WN, Chronically ill Neck: Other (DRAINAGE FROM TRACH SITE) Respiratory: Decreased Breath Sounds, Rhonci Cardiovascular: Regular Rate, Rhythm Gastrointestinal: normal bowel sounds, non tender, soft, no organomegaly, no pulsatile mass Extremity: Normal Capillary Refill, No Pedal Edema Neurologic/Psychiatric: Alert, Disoriented x3 Results Lab Laboratory Tests 05/22/16 05:30: White Blood Count 7.3, Red Blood Count 3.77L, Hemoglobin 10.8L, Hematocrit 33L, Mean Corpuscular Volume 88, Mean Corpuscular Hemoglobin 29, Mean Corpuscular Hemoglobin Concent 32, Red Cell Distribution Width 13.9, Platelet Count 197, Mean Platelet Volume 9.8, Neutrophils (%) (Auto) 74, Lymphocytes (%) (Auto) 13, Monocytes (%) (Auto) 9, Eosinophils (%) (Auto) 4, Basophils (%) (Auto) 0, Neutrophils # (Auto) 5.3, Lymphocytes # (Auto) 1.0, Monocytes # (Auto) 0.6, Eosinophils # (Auto) 0.3, Basophils # (Auto) 0.0 Microbiology 05/11/16 C. difficile GDH Antigen & Toxins - Final, Complete 05/11/16 Stool Culture - Final, Complete Negative for Salmonella... 05/11/16 Gram Stain - Final, Complete 05/11/16 Sputum Culture - Final, Complete Pseudomonas Aeruginosa 05/11/16 Urine Culture - Final, Complete Raoultella Ornithinolytica Enterobacter Cloacae Complex Enterococcus Faecalis Assessment/Plan Assessment/Plan Assess & Plan/Chief Complaint HYPERNATREMIA HYPERKALEMIA URINARY TRACT INFECTION CONFUSION MEDICATION REACTION GENERALIZED WEAKNESS AND MALAISE METASTATIC BREAST CANCER HYPERNATREMIA AND HYPERKALEMIA - - IMPROVING- CONTINUE WITH IV FLUIDS, MONITOR CMP, CBC. UTI- ON IV ANTIBIOTICS - MONITOR AND ADJUST MEDICATIONS BASED ON URINALYSIS. - VRE ON CULTURE REPORT - . - PLACED IN ISOLATION. - DID NOT TOLERATE THE LEVAQUIN - PT'S MEDICATION ADJUSTED TO MEROPENEM AND LINEZOLID - CONTINUE THROUGH 05/23/16 CONFUSION - INTERMITTENT CONFUSION - CONTINUE WITH BEST SUPPORTIVE CARE. MUSCLE WEAKNESS AND MALAISE - FAMILY NOT ABLE TO CARE FOR CONSUELO AT HOME - WILL NEED SENIOR CARE PLACEMENT ON DISCHARGE. - LOOKING INTO SENIOR CARE PLACEMENT WITH [facility] METASTATIC BREAST CANCER - SUPPORTIVE CARE - PT HAS LESION ON TONSIL - NEED TO HAVE MICHAEL DISCUSSION WITH FAMILY ABOUT PT'S SITUATION - SHE IS TOO FRAIL TO HAVE SURGERY AT THIS TIME. THICK DRAINAGE FROM TRACH - NOT WANTING SUCTION - START GLYCOPYRROLATE TODAY Clinical Quality Measures DVT/VTE Risk/Contraindication: Risk Factor Score Per Nursin RFS Level Per Nursing on Admit: 4+=Very High BERTA TINOCO MD May 22, 2016 07:54
[2016-05-22 08:00] VITALS: BP 131/70
[2016-05-22] MEDS: BENEFIBER (FROM DIETARY) DOCUMENTATION PURPOSE ONLY PO SCH (08:05)
[2016-05-22] MEDS: MENTHOL/ZINC OXIDE (CALMOSEPTINE) 113 GM TUBE TOP SCH ×2 (08:05→21:15)
[2016-05-22] MEDS: ACETAMINOPHEN 325 MG TABLET/CAPLET (TYLENOL) JT PRN ×2 (10:15→16:09)
[2016-05-22] MEDS: SODIUM BICARBONATE 650 MG TABLET (NON-FORMULARY) PO PRN ×2 (12:37→13:51)
[2016-05-22] MEDS: LIPASE/AMYLASE/PROTEASE (PANCRELIPASE) 5,000 UNITS CAP PO PRN ×2 (12:38→13:51)
--- NOTE | 2016-05-22 13:14 | Progress Note (SOAP) ---
Subjective Subjective/Events-last exam Patient complains of abdominal pain; PEG tube is not working and measures to break up potential blockage are in progress. Objective Exam Vital Signs Date Time Temp Pulse Resp B/P (MAP) Pulse Ox O2 Delivery O2 Flow Rate FiO2 05/22/16 08:00 99.2 105 20 131/70 99 Nasal Cannula 3.00 05/22/16 08:00 99 Nasal Cannula 3.00 05/22/16 07:42 3.00 05/22/16 00:00 99.6 102 20 124/75 97 Nasal Cannula 3.00 05/21/16 20:00 Nasal Cannula 3.00 05/21/16 19:03 2.00 05/21/16 16:00 99.2 106 20 121/68 97 Nasal Cannula 3.00 I & O 05/22/16 06:59 Intake Total 2440 ml Output Total 3675 ml Balance -1235 ml Capillary Refill : General Appearance: Chronically ill Neck: Non Tender, Supple, Other (tracheostomy stoma covered with dressing) Respiratory: Crackles Cardiovascular: Tachycardia Gastrointestinal: soft, other (PEG tube in place without drainage around site) Extremity: Other (pressure ulcer right heel;) Neurologic/Psychiatric: Motor Weakness Results Lab Laboratory Tests 05/22/16 05:30: White Blood Count 7.3, Red Blood Count 3.77L, Hemoglobin 10.8L, Hematocrit 33L, Mean Corpuscular Volume 88, Mean Corpuscular Hemoglobin 29, Mean Corpuscular Hemoglobin Concent 32, Red Cell Distribution Width 13.9, Platelet Count 197, Mean Platelet Volume 9.8, Neutrophils (%) (Auto) 74, Lymphocytes (%) (Auto) 13, Monocytes (%) (Auto) 9, Eosinophils (%) (Auto) 4, Basophils (%) (Auto) 0, Neutrophils # (Auto) 5.3, Lymphocytes # (Auto) 1.0, Monocytes # (Auto) 0.6, Eosinophils # (Auto) 0.3, Basophils # (Auto) 0.0 Microbiology 05/11/16 C. difficile GDH Antigen & Toxins - Final, Complete 05/11/16 Stool Culture - Final, Complete Negative for Salmonella... 05/11/16 Gram Stain - Final, Complete 05/11/16 Sputum Culture - Final, Complete Pseudomonas Aeruginosa 05/11/16 Urine Culture - Final, Complete Raoultella Ornithinolytica Enterobacter Cloacae Complex Enterococcus Faecalis Assessment/Plan Assessment/Plan Assess & Plan/Chief Complaint 1. Altered mental status progressive weakness persists; a. Need for lumbar puncture to rule out leptomeningeal metastases has been discussed with who does not want to proceed with this investigation at all. 2. UTI-- receiving antibiotics. 3. Malfunctioning PEG tube- Enzyme solution has been instilled to remove potential blockage. Check abdominal x-ray and consult interventional radiology. 4. Chest x-ray showed no acute process however sputum is growing Pseudomonas which is likely arising from colonization. 5. Metastatic Breast Cancer with Metastasis to Brain (large posterior fossa mass); a. Status Post near complete resection at [facility] on ; b. Status Post Whole Brain Radiation, 3000 cGy administered from 12/21-01/04/16 c. 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 i.) History of recurrent Pseudomonas pneumonia; ii.) Bilateral vocal cord paralysis requiring prolonged tracheostomy <which was recently removed >and feeding tube placement; d. Faslodex 500 mg IM (days 1, 15, 29 and monthly thereafter) initiated 12/22/15 and last dose given on 04/13/16. 6. Overall prognosis is poor and deteriorating. 8. DO NOT RESUSCITATE this patient 9. DVT prophylaxis-Enoxaparin 40mg daily. Clinical Quality Measures DVT/VTE Risk/Contraindication: Risk Factor Score Per Nursin RFS Level Per Nursing on Admit: 4+=Very High ONESIMO HUFFMAN MD May 22, 2016 13:14
[2016-05-22] MEDS: ENOXAPARIN 40 MG/0.4 ML (LOVENOX) SYR SC SCH (15:22)
[2016-05-22 16:30] VITALS: BP 134/69
[2016-05-22] MEDS ORDERED: fentaNYL INJECTION 100 MCG/2 ML AMP ONE (17:49)
--- NOTE | 2016-05-22 18:41 | Diagnostic Imaging Report ---
INDICATION: Abdominal pain. Abdominal series performed with a frontal chest radiograph and supine and upright abdominal films. FINDINGS: Frontal chest shows new small area of infiltrate or atelectasis in the left base. There are chronic-appearing increased interstitial markings. There is no free intraperitoneal air. There is no pleural fluid. There is a GJ tube overlying the abdomen with tip overlying the proximal jejunum. The abdominal bowel gas pattern is unremarkable. IMPRESSION: Unremarkable bowel gas pattern. GJ tube overlies the abdomen with tip overlying the region of the proximal jejunum. There is a small area of infiltrate versus atelectasis in the left lung base. There are chronic-appearing increased interstitial markings. Dictated by: Dictated on workstation # [id number]
[2016-05-22] MEDS: fentaNYL INJECTION 100 MCG/2 ML AMP IVP PRN (21:22)
[2016-05-23] VITALS: BP 120/63
[2016-05-23] MEDS: LINEZOLID IVPB 300 ML IV SCH (00:55)
[2016-05-23] MEDS: GLYCOPYRROLATE 0.2 MG/ML (ROBINUL) 2 ML VIAL IV SCH ×4 (03:19→21:25)
[2016-05-23 05:55] LABS: BASOPHILS % (AUTO) 0 % (0-10); EOSINOPHILS # (AUTO) 0.3 10^3/uL (0.0-0.3); EOSINOPHILS % (AUTO) 3 % (0-10); LYMPHOCYTES # (AUTO) 0.9 X 10^3 (1.0-4.0); LYMPHOCYTES % (AUTO) 9 % (12-44); MEAN CORPUSCULAR HEMOGLOBIN 29 PG (25-34); MEAN CORPUSCULAR HGB CONC 33 G/DL (32-36); MEAN CORPUSCULAR VOLUME 88 FL (80-99); MEAN PLATELET VOLUME 9.9 FL (7.4-10.4); MONOCYTES # (AUTO) 0.8 X 10^3 (0.0-1.0); MONOCYTES % (AUTO) 8 % (0-12); NEUTROPHILS # (AUTO) 7.8 X 10^3 (1.8-7.8); NEUTROPHILS % (AUTO) 80 % (42-75); PLATELET COUNT 165 10^3/uL (130-400); RED BLOOD COUNT 3.74 10^6/uL (4.35-5.85); RED CELL DISTRIBUTION WIDTH 13.8 % (10.0-14.5); WHITE BLOOD COUNT 9.8 10^3/uL (4.3-11.0)
[2016-05-23] MEDS: MEROPENEM 500 MG in NS (IVPB) 100 ML IV SCH (06:27)
[2016-05-23] MEDS: 1/2 NS W/KCL 20 MEQ/L 1,000 ML IV SCH ×3 (06:53→20:31)
[2016-05-23 08:00] VITALS: BP_SYST 120; BP_SYST 136; BP_DIAS 63; BP_DIAS 68
--- NOTE | 2016-05-23 08:58 | Progress Note (SOAP) ---
Subjective Subjective/Events-last exam PT CONTINUES TO HAVE SHORTNESS OF BREATH, FATIGUE, WEAKNESS. DISCUSSION WITH FAMILY ABOUT [facility]. Review of Systems General: Fatigue, Malaise Pulmonary: Dyspnea, Cough Cardiovascular: No: Chest Pain Gastrointestinal: No: Nausea Genitourinary: Other (ROMAN IN PLACE) Neurological: Confusion, Weakness Objective Exam Vital Signs Date Time Temp Pulse Resp B/P (MAP) Pulse Ox O2 Delivery O2 Flow Rate FiO2 05/23/16 00:00 98.2 110 20 120/63 97 Nasal Cannula 3.00 05/22/16 22:49 3.00 05/22/16 20:00 Nasal Cannula 3.00 05/22/16 16:30 98.0 112 22 134/69 99 Nasal Cannula 3.00 I & O 05/23/16 07:00 Intake Total 1800 ml Output Total 5025 ml Balance -3225 ml Capillary Refill : General Appearance: Moderate Distress (WITH CONFUSION AND SHORTNESS OF BREATH) Neck: Other (TRACH SITE WITH COPIOUS DISCHARGE) Respiratory: Decreased Breath Sounds, Rhonci, Wheezing Cardiovascular: Regular Rate, Rhythm Gastrointestinal: normal bowel sounds, non tender, soft, no organomegaly, no pulsatile mass Extremity: Pedal Edema Neurologic/Psychiatric: Alert, Disoriented x3 Skin: Warm/Dry Lymphatic: No Adenopathy Results Lab Laboratory Tests 05/23/16 05:35: White Blood Count 9.8, Red Blood Count 3.74L, Hemoglobin 10.7L, Hematocrit 33L, Mean Corpuscular Volume 88, Mean Corpuscular Hemoglobin 29, Mean Corpuscular Hemoglobin Concent 33, Red Cell Distribution Width 13.8, Platelet Count 165, Mean Platelet Volume 9.9, Neutrophils (%) (Auto) 80H, Lymphocytes (%) (Auto) 9L , Monocytes (%) (Auto) 8, Eosinophils (%) (Auto) 3, Basophils (%) (Auto) 0, Neutrophils # (Auto) 7.8, Lymphocytes # (Auto) 0.9L, Monocytes # (Auto) 0.8, Eosinophils # (Auto) 0.3, Basophils # (Auto) 0.0 Microbiology 05/11/16 C. difficile GDH Antigen & Toxins - Final, Complete 05/11/16 Stool Culture - Final, Complete Negative for Salmonella... 05/11/16 Gram Stain - Final, Complete 05/11/16 Sputum Culture - Final, Complete Pseudomonas Aeruginosa 05/11/16 Urine Culture - Final, Complete Raoultella Ornithinolytica Enterobacter Cloacae Complex Enterococcus Faecalis Assessment/Plan Assessment/Plan Assess & Plan/Chief Complaint HYPERNATREMIA HYPERKALEMIA URINARY TRACT INFECTION CONFUSION MEDICATION REACTION GENERALIZED WEAKNESS AND MALAISE METASTATIC BREAST CANCER HYPERNATREMIA AND HYPERKALEMIA - - IMPROVING- CONTINUE WITH IV FLUIDS, MONITOR CMP, CBC. UTI- ON IV ANTIBIOTICS - MONITOR AND ADJUST MEDICATIONS BASED ON URINALYSIS. - VRE ON CULTURE REPORT - . - PLACED IN ISOLATION. - DID NOT TOLERATE THE LEVAQUIN - CONFUSION - INTERMITTENT CONFUSION - CONTINUE WITH BEST SUPPORTIVE CARE. MUSCLE WEAKNESS AND MALAISE - FAMILY NOT ABLE TO CARE FOR CONSUELO AT HOME - WILL NEED [facility] PLACEMENT ON DISCHARGE. - LOOKING INTO [facility] PLACEMENT WITH [facility] METASTATIC BREAST CANCER - SUPPORTIVE CARE - PT HAS LESION ON TONSIL -PT NOT SURGICAL CANDIDATE THICK DRAINAGE FROM TRACH - NOT WANTING SUCTION - STARTED GLYCOPYRROLATE Clinical Quality Measures DVT/VTE Risk/Contraindication: Risk Factor Score Per Nursin RFS Level Per Nursing on Admit: 4+=Very High BERTA TINOCO MD May 23, 2016 08:58
[2016-05-23] MEDS ORDERED: BISACODYL 10 MG SUPP (DULCOLAX) PR NR (09:00)
[2016-05-23] MEDS ORDERED: BISACODYL 10 MG SUPP (DULCOLAX) PR PRN (09:00)
[2016-05-23] MEDS ORDERED: ACETAMINOPHEN 650 MG SUPP (TYLENOL) PR PRN (09:00)
[2016-05-23] MEDS: fentaNYL INJECTION 100 MCG/2 ML AMP IVP PRN ×4 (09:39→19:05)
[2016-05-23] MEDS: MENTHOL/ZINC OXIDE (CALMOSEPTINE) 113 GM TUBE TOP SCH ×2 (09:40→21:28)
[2016-05-23] MEDS ORDERED: METHYLNALTREXONE 12 MG/0.6 ML (RELISTOR) VIAL SQ NR (12:27)
--- NOTE | 2016-05-23 14:05 | Progress Note (SOAP) ---
Subjective Subjective/Events-last exam Continues to report abdominal pain;also has constipation which is being addressed. Objective Exam Vital Signs Date Time Temp Pulse Resp B/P (MAP) Pulse Ox O2 Delivery O2 Flow Rate FiO2 05/23/16 09:01 3.00 05/23/16 08:00 98.6 101 22 136/68 96 Nasal Cannula 3.00 05/23/16 00:00 98.2 110 20 120/63 97 Nasal Cannula 3.00 05/22/16 22:49 3.00 05/22/16 20:00 Nasal Cannula 3.00 05/22/16 16:30 98.0 112 22 134/69 99 Nasal Cannula 3.00 I & O 05/23/16 07:00 Intake Total 1800 ml Output Total 5025 ml Balance -3225 ml Capillary Refill : General Appearance: No Apparent Distress, Chronically ill Neck: Other (Yellow creamy drainage coming from tracheostomy stoma;) Respiratory: Crackles, Decreased Breath Sounds Cardiovascular: Tachycardia Gastrointestinal: normal bowel sounds, soft, distended (mildly distended) Results Lab Laboratory Tests 05/23/16 05:35: White Blood Count 9.8, Red Blood Count 3.74L, Hemoglobin 10.7L, Hematocrit 33L, Mean Corpuscular Volume 88, Mean Corpuscular Hemoglobin 29, Mean Corpuscular Hemoglobin Concent 33, Red Cell Distribution Width 13.8, Platelet Count 165, Mean Platelet Volume 9.9, Neutrophils (%) (Auto) 80H, Lymphocytes (%) (Auto) 9L , Monocytes (%) (Auto) 8, Eosinophils (%) (Auto) 3, Basophils (%) (Auto) 0, Neutrophils # (Auto) 7.8, Lymphocytes # (Auto) 0.9L, Monocytes # (Auto) 0.8, Eosinophils # (Auto) 0.3, Basophils # (Auto) 0.0 Microbiology 05/11/16 C. difficile GDH Antigen & Toxins - Final, Complete 05/11/16 Stool Culture - Final, Complete Negative for Salmonella... 05/11/16 Gram Stain - Final, Complete 05/11/16 Sputum Culture - Final, Complete Pseudomonas Aeruginosa 05/11/16 Urine Culture - Final, Complete Raoultella Ornithinolytica Enterobacter Cloacae Complex Enterococcus Faecalis Assessment/Plan Assessment/Plan Assess & Plan/Chief Complaint 1. Altered mental status progressive weakness persists; a. Need for lumbar puncture to rule out leptomeningeal metastases has been discussed with who does not want to proceed with this investigation at all. 2. UTI-- receiving antibiotics. 3. Malfunctioning PEG tube-Pancrease has been instilled to remove potential blockage. Check abdominal x-ray and consult interventional radiology. 4. Chest x-ray was no acute process however sputum is growing Pseudomonas which is likely arising from colonization. 5. Metastatic Breast Cancer with Metastasis to Brain (large posterior fossa mass); a. Status Post near complete resection at [facility] on ; b. Status Post Whole Brain Radiation, 3000 cGy administered from 12/21-01/04/16 c. 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 i.) History of recurrent Pseudomonas pneumonia; ii.) Bilateral vocal cord paralysis requiring prolonged tracheostomy <which was recently removed >and feeding tube placement; d. Faslodex 500 mg IM (days 1, 15, 29 and monthly thereafter) initiated 12/22/15 and last dose given on 04/13/16. 6. Overall prognosis is poor and patient continues to decline clinically. 8. DO NOT RESUSCITATE this patient 9. DVT prophylaxis-Enoxaparin 40mg daily. Clinical Quality Measures DVT/VTE Risk/Contraindication: Risk Factor Score Per Nursin RFS Level Per Nursing on Admit: 4+=Very High ONESIMO HUFFMAN MD May 23, 2016 14:05
[2016-05-23] MEDS: ENOXAPARIN 40 MG/0.4 ML (LOVENOX) SYR SC SCH (15:30)
[2016-05-23 16:26] VITALS: BP 139/69
[2016-05-23] MEDS ORDERED: morphine INJ 4 MG/ML 1 ML (VIAL/SYRINGE) ONE (21:19)
[2016-05-23] MEDS: morphine INJ 4 MG/ML 1 ML (VIAL/SYRINGE) IVP PRN (21:24)
[2016-05-23] MEDS: BENEFIBER (FROM DIETARY) DOCUMENTATION PURPOSE ONLY PO SCH (23:19)
[2016-05-23] MEDS: LORazepam INJ 2 MG/ML (ATIVAN) VIAL IVP PRN (23:27)
[2016-05-24 00:29] VITALS: BP 120/61
[2016-05-24] MEDS: 1/2 NS W/KCL 20 MEQ/L 1,000 ML IV SCH ×2 (04:34→14:53)
[2016-05-24] MEDS: GLYCOPYRROLATE 0.2 MG/ML (ROBINUL) 2 ML VIAL IV SCH ×2 (05:52→14:44)
[2016-05-24 06:02] LABS: BASOPHILS % (AUTO) 0 % (0-10); EOSINOPHILS # (AUTO) 0.1 10^3/uL (0.0-0.3); EOSINOPHILS % (AUTO) 1 % (0-10); LYMPHOCYTES # (AUTO) 0.6 X 10^3 (1.0-4.0); LYMPHOCYTES % (AUTO) 5 % (12-44); MEAN CORPUSCULAR HEMOGLOBIN 29 PG (25-34); MEAN CORPUSCULAR HGB CONC 32 G/DL (32-36); MEAN CORPUSCULAR VOLUME 89 FL (80-99); MEAN PLATELET VOLUME 8.5 FL (7.4-10.4); MONOCYTES % (AUTO) 8 % (0-12); NEUTROPHILS # (AUTO) 11.2 X 10^3 (1.8-7.8); NEUTROPHILS % (AUTO) 86 % (42-75); PLATELET COUNT 221 10^3/uL (130-400); RED CELL DISTRIBUTION WIDTH 13.7 % (10.0-14.5); WHITE BLOOD COUNT 12.9 10^3/uL (4.3-11.0)
[2016-05-24 08:00] VITALS: BP 129/69
[2016-05-24] MEDS: BENEFIBER (FROM DIETARY) DOCUMENTATION PURPOSE ONLY PO SCH (08:05)
[2016-05-24] MEDS: MENTHOL/ZINC OXIDE (CALMOSEPTINE) 113 GM TUBE TOP SCH (08:06)
[2016-05-24] MEDS ORDERED: AMYLASE PO (09:08)
[2016-05-24] MEDS ORDERED: LIPASE PO (09:08)
[2016-05-24] MEDS ORDERED: PROTEASE PO (09:08)
[2016-05-24] MEDS ORDERED: BISA10SU12 PR (09:08)
[2016-05-24] MEDS ORDERED: ZINC28PA TOP (09:08)
[2016-05-24] MEDS ORDERED: MORP100S3 PEG (09:08)
[2016-05-24] MEDS ORDERED: ACET650S15 PR (09:08)
[2016-05-24] MEDS ORDERED: LORA2ORA PEG (09:08)
--- NOTE | 2016-05-24 09:11 | Discharge Inst-Skilled Nursing ---
Discharge Inst-Skilled NF Patient Instructions Patient Problems: METASTATIC BREAST CANCER TO BRAIN TRACHEOSTOMY WITH TRACH REMOVED, DISCHARGE FROM TRACH SITE URINARY TRACT INFECTION WEAKNESS PEG TUBE FEEDINGS URINARY INCONTINENCE FECAL INCONTINENCE RECURRENT PSEUDOMONAL INFECTIONS Consult/Follow Up/Orders Skilled NF Admit to: [facility] Certification ([facility]) I certify that SNF services are required to be given on an inpatient basis because of the above named patient's need for senior care care on a continuing basis for the conditions(s) for which he/she was receiving inpatient hospital services prior to his/her transfer to the SNF. Jail Facility Order: Nursing Services, [employer]-Evaluate & Treat (RANGE OF MOTION UPPER EXTREMITIES), Speech Language-Evaluate & Treat, Wound Care-Eval/Treat Discharge Diet: Tube Feeding (- SEE CURRENT ORDERS FROM HOSPITAL CURRENT FEEDING SCHEDULE) New & Resume Previous Orders Berta Mathias May 24, 2016 09:09 BERTA MATHIAS MD May 24, 2016 09:11
--- NOTE | 2016-05-24 09:11 | Discharge Summary ---
Diagnosis/Chief Complaint Date of Admission May 11, 2016 at 14:26 Date of Discharge Discharge Date: May 24, 2016 Admission Diagnosis Admission Diagnosis 1. Altered mental status progressive weakness-rule out tumor progression and/ or superimposed infection; 2. Progressive weakness-rule out tumor progression and/or superimposed infection; 3. Recurrent Hypercalcemia--normal PTH level on 03/17/16, and administer vigorous IV rehydration and recheck level; 4. Hypernatremia-administer IV rehydration 5. Hypoxemia-check chest x-ray and obtain sputum culture. 6 Metastatic Breast Cancer with Metastasis to Brain (large posterior fossa mass ); a. Status Post near complete resection at [facility] on ; b. Status Post Whole Brain Radiation, 3000 cGy administered from 12/21-01/04/16 c. 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 i.) History of recurrent Pseudomonas pneumonia; ii.) Bilateral vocal cord paralysis requiring prolonged tracheostomy <which was recently removed >and feeding tube placement; d. Faslodex 500 mg IM (days 1, 15, 29 and monthly thereafter) initiated 12/22/15 and last dose given on 04/13/16. 7. Overall prognosis is poor 8. DO NOT RESUSCITATE this patient 9. DVT prophylaxis-Enoxaparin 40mg daily. PLAN: 1. Admit on inpatient Medical Service. 2. Schedule CT scan he had with contrast in a.m. 3 administer IV hydration D5 half-normal saline and monitor sodium and electrolytes. 4. Stool for C. difficile 5. Urine culture and urinalysis, 6. Nasal cannula oxygen to maintain O2 saturation 90 % or greater; sputum culture and chest x-ray 7. Blood cultures 2 for fever spikes greater than or equal to 100.5. 8. Consult Dr. Esme Mathias. Discharge Diagnosis HYPERNATREMIA HYPERKALEMIA URINARY TRACT INFECTION CONFUSION MEDICATION REACTION GENERALIZED WEAKNESS AND MALAISE METASTATIC BREAST CANCER Reason Hospital Visit PT IS A 51 Y/O FEMALE WHO IS KNOWN TO ME FROM CLINIC AND PREVIOUS HOSPITALIZATIONS. SHE REPORTS THAT SHE JUST FEELS POORLY. SHE STATES THAT SHE HAS SOME COUGH, INCREASE IN SPUTUM, AND GENERALIZED NOT FEELING WELL. Discharge Summary Discharge Physical Examination Allergies: Coded Allergies: Sulfa (Sulfonamide Antibiotics) (Verified Allergy, Intermediate, HIVES, ) nitrofurantoin (Verified Allergy, Intermediate, RASH, 02/03/16) levofloxacin (Verified Allergy, Unknown, rash, 05/13/16) patient had small rash on arm where iv was uncertain if from iv going bad or possible reaction. Vitals & I&Os General Appearance: Alert, Mild Distress Respiratory: Other (DECREASED BREATH SOUNDS - WHEEZING, RHONCHI) Cardiovascular: Regular Rate Abdominal: Normal Bowel Sounds, Soft Extremities: No Clubbing, No Cyanosis Psych/Mental Status: Other (CONFUSION) Hospital Course HYPERNATREMIA HYPERKALEMIA URINARY TRACT INFECTION CONFUSION MEDICATION REACTION GENERALIZED WEAKNESS AND MALAISE METASTATIC BREAST CANCER HYPERNATREMIA AND HYPERKALEMIA - - IMPROVED. UTI- ON IV ANTIBIOTICS -FINISHED TREATMENT CONFUSION - INTERMITTENT CONFUSION - CONTINUE WITH BEST SUPPORTIVE CARE. MUSCLE WEAKNESS AND MALAISE - FAMILY NOT ABLE TO CARE FOR CONSUELO AT HOME - RESIDENTIAL PLACEMENT WITH [facility] METASTATIC BREAST CANCER - SUPPORTIVE CARE - PT HAS LESION ON TONSIL -PT NOT SURGICAL CANDIDATE THICK DRAINAGE FROM TRACH - NOT WANTING SUCTION - PT DISCHARGED TO [facility], WILL ATTEMPT REHAB - MAY NOT BE ABLE TO REHAB, MONITOR SYMPTOMS, MAY NEED TO CONSIDER HOSPICE IF PT DECLINES QUICKLY AFTER TRANSFER. Pending Labs Discharge Condition at discharge MILD DECLINE Instructions to patient/family Please see electonic discharge instructions given to patient. Discharge Medications Reviewed and agree with Discharge Medication list on patient's Discharge Instruction sheet Clinical Quality Measures DVT/VTE Risk/Contraindication: Risk Factor Score Per Nursin RFS Level Per Nursing on Admit: 4+=Very High ESME MATHIAS MD May 24, 2016 09:11
[2016-05-24] MEDS: morphine INJ 4 MG/ML 1 ML (VIAL/SYRINGE) IVP PRN ×2 (09:57→16:12)
--- NOTE | 2016-05-24 15:08 | Diagnostic Imaging Report ---
INDICATION: PICC line placement. EXAMINATION: Portable chest at 2:57 PM. FINDINGS: The left upper extremity PICC line tip is ascending in the left internal jugular vein. The heart size and pulmonary vascularity are normal. There is some perihilar parenchymal retraction. There is no effusion or pneumothorax. There are postop changes from right mastectomy with implant. IMPRESSION: Bilateral perihilar scarring could be due to radiation fibrosis but clinical correlation is recommended. The left upper extremity PICC line is passing up the left internal jugular vein rather than across the left innominate vein. Dictated by: Dictated on workstation # [id number]
--- NOTE | 2016-05-24 15:32 | Diagnostic Imaging Report ---
INDICATION: PICC line repositioned. FINDINGS: The left upper extremity PICC line tip is looped back upon itself. The leading edge of the loop is in the left innominate vein. The tip projects back near the confluence of the left internal jugular vein. Perihilar fibrosis is again noted. IMPRESSION: The PICC line appears to be looped back upon itself in the left innominate vein. Dictated by: Dictated on workstation # [id number]
--- NOTE | 2016-05-24 15:46 | Diagnostic Imaging Report ---
Portable upright radiograph of the chest. INDICATION: Repositioning PICC line attempt. FINDINGS: There is a loop created in the left brachiocephalic vein with the left PICC line still at the subclavian internal jugular vein junction. The length of the loop is 7.8 cm. There is interstitial thickening seen in the lungs and right perihilar opacity or mass is unchanged. Right breast implant is seen. The heart size is normal. No effusion or pneumothorax. IMPRESSION: The PICC line is still looped in the left brachiocephalic vein. Repositioning is recommended. Dictated by: Dictated on workstation # [id number]
[2016-05-24 16:00] VITALS: BP 124/60
[2016-05-24] MEDS: ENOXAPARIN 40 MG/0.4 ML (LOVENOX) SYR SC SCH (16:00)
--- NOTE | 2016-05-24 16:57 | Progress Note (SOAP) ---
Subjective Subjective/Events-last exam Pain is currently well controlled with use of morphine. Plan is to discharge today to the [facility] skilled care. I've spoken to Rj and 2 marriage and family social worker, Latonia and they are waiting decision from staff at [facility]. Objective Exam Vital Signs Date Time Temp Pulse Resp B/P (MAP) Pulse Ox O2 Delivery O2 Flow Rate FiO2 05/24/16 16:00 97.5 91 22 124/60 94 Nasal Cannula 3.00 05/24/16 08:00 98.6 95 20 129/69 95 Nasal Cannula 3.00 05/24/16 06:58 3.00 05/24/16 00:29 98.6 96 12 120/61 91 Nasal Cannula 3.00 05/23/16 20:00 Nasal Cannula 3.00 05/23/16 19:27 3.00 I & O 05/24/16 07:00 Intake Total 2000 ml Output Total 2675 ml Balance -675 ml Capillary Refill : General Appearance: Chronically ill HEENT: PERRL/EOMI Neck: Non Tender, Supple, Other (tracheostomy stoma present;) Respiratory: Crackles, Decreased Breath Sounds Gastrointestinal: normal bowel sounds, non tender, soft, other (feeding tube in place;) Neurologic/Psychiatric: Motor Weakness Results Lab Laboratory Tests 05/24/16 05:40: White Blood Count 12.9H, Red Blood Count 3.40L, Hemoglobin 9.7L, Hematocrit 30L , Mean Corpuscular Volume 89, Mean Corpuscular Hemoglobin 29, Mean Corpuscular Hemoglobin Concent 32, Red Cell Distribution Width 13.7, Platelet Count 221, Mean Platelet Volume 8.5, Neutrophils (%) (Auto) 86H, Lymphocytes (%) (Auto) 5L , Monocytes (%) (Auto) 8, Eosinophils (%) (Auto) 1, Basophils (%) (Auto) 0, Neutrophils # (Auto) 11.2H, Lymphocytes # (Auto) 0.6L, Monocytes # (Auto) 1.0, Eosinophils # (Auto) 0.1, Basophils # (Auto) 0.0 Microbiology 05/11/16 C. difficile GDH Antigen & Toxins - Final, Complete 05/11/16 Stool Culture - Final, Complete Negative for Salmonella... 05/11/16 Gram Stain - Final, Complete 05/11/16 Sputum Culture - Final, Complete Pseudomonas Aeruginosa 05/11/16 Urine Culture - Final, Complete Raoultella Ornithinolytica Enterobacter Cloacae Complex Enterococcus Faecalis Assessment/Plan Assessment/Plan Assess & Plan/Chief Complaint 1. Altered mental status progressive weakness persists; a. Need for lumbar puncture to rule out leptomeningeal metastases has been discussed with who does not want to proceed with this investigation at all. 2. UTI-- antibiotics are completed. 3. JPEG tube-currently working well. 4. Overall prognosis is poor and patient is continuing to decline. 5. Metastatic Breast Cancer with Metastasis to Brain (large posterior fossa mass); a. Status Post near complete resection at [facility] on ; b. Status Post Whole Brain Radiation, 3000 cGy administered from 12/21-01/04/16 c. 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 i.) History of recurrent Pseudomonas pneumonia; ii.) Bilateral vocal cord paralysis requiring prolonged tracheostomy <which was recently removed >and feeding tube placement; d. Faslodex 500 mg IM (days 1, 15, 29 and monthly thereafter) initiated 12/22/15 and last dose given on 04/13/16. Faslodex has been discontinued. 6. DO NOT RESUSCITATE this patient. Clinical Quality Measures DVT/VTE Risk/Contraindication: Risk Factor Score Per Nursin RFS Level Per Nursing on Admit: 4+=Very High ONESIMO HUFFMAN MD May 24, 2016 16:57
--- OUTSIDE RECORDS SUMMARY | 2016-06-04 06:39 | XMS REPORT | Continuity of Care Document ---
Author Author [facility] Organization [facility] Address Unknown Phone Unavailable Care Team Providers Care Licensed Investment Sales Assistant Name Role Phone Esme Mathias PCP [phone] Source Comments Some departments are not documenting in the electronic medical record. If you do not see the information that you expected, contact Release of Information in the Health Information Management department at [phone] for further assistance in locating additional records.St. [...] March 2014. Right breast sono-guided biopsy 04/29/14 ([place], [place]) revealed, grade 3, HER2 positive invasive ductal carcinoma. PET scan 05/12/14 ([place], [place]) revealed a 2.5 cm hypermetabolic mass [...] mastectomy/SLNB/TE on 11/05/14. She finished radiation in [place], [place] in February 2015. She started Examestane in February 2015. PATHOLOGY: Tumor: 2.4 cm tumor bed with no residual tumor Margins Free From Tumor: No ER: positive GA: negative Her 2: positive Grade: 3 Lymph Nodes: 0/2 LVSI: no Extranodal extension: no BREAST IMAGING: Mammogram: -- Right diagnostic mammogram 04/23/14 ([place], [place]) revealed distortion of the breast tissue in the upper outer quadrant with several areas of abnormal calcifications. -- Right diagnostic mammogram 08/17/14 () revealed a clip at 9:30 with surrounding pleomorphic calcifications. The calcifications panned 7 cm and extended to approximately 1 cm FTN. Ultrasound: -- Right breast ultrasound 04/23/14 ([place], [place]) revealed 2.3 cm hypoechoic mass corresponding [...] axillary adenopathy. MEDICAL ONCOLOGY: Dr. Esme Mathias ([place], [place]) PRESENT THERAPY: Neoadjuvant AC x 4 [...]
--- OUTSIDE RECORDS SUMMARY | 2016-06-04 06:41 | XMS REPORT | Continuity of Care Document ---
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 Ot R73.9 HYPERGLYCEMIA, UNSPECIFIED 12/14/2015 UZMA VILLALOBOS MD Ot T38.0X5A ADVERSE EFFECT OF GLUCOCORT/SYNTH ANALOG 12/14/2015 UZMA VILLALOBOS MD Ot Z48.3 AFTERCARE FOLLOWING SURGERY FOR NEOPLASM 12/14/2015 UZMA VILLALOBOS MD Ot Z85.3 PERSONAL HISTORY OF MALIGNANT NEOPLASM O 12/14/2015 UZMA VILLALOBOS MD Ot Z93.0 TRACHEOSTOMY STATUS 12/14/2015 UZMA VILLALOBOS MD Ot Z93.1 GASTROSTOMY STATUS 12/15/2015 ONESIMO HUFFMAN MD Ot 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 OF UNSP SITE OF RIGHT 12/15/2015 ONESIMO HUFFMAN MD Ot C77.3 SEC AND UNSP MALIG NEOPLASM OF AXILLA AN 12/15/2015 ONESIMO HUFFMAN MD Ot 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 [ER+] 12/15/2015 ONESIMO HUFFMAN MD Ot Z90.11 ACQUIRED ABSENCE OF RIGHT BREAST AND NIP 12/15/2015 UZMA VILLALOBOS MD Ot C79.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 12/15/2015 UZMA VILLALOBOS MD Ot F32.9 MAJOR DEPRESSIVE DISORDER, SINGLE EPISOD 12/15/2015 UZMA VILLALOBOS MD Ot G81.91 HEMIPLEGIA, UNSPECIFIED AFFECTING RIGHT 12/15/2015 UZMA VILLALOBOS MD Ot H53.2 DIPLOPIA 12/15/2015 UZMA VILLALOBOS MD Ot 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, UNS 12/15/2015 UZMA VILLALOBOS MD Ot R13.10 DYSPHAGIA, UNSPECIFIED 12/15/2015 VILLALOBOS MD, UZMA E Ot R73.9 HYPERGLYCEMIA, UNSPECIFIED 12/15/2015 UZMA VILLALOBOS MD E Ot T38.0X5A ADVERSE EFFECT OF GLUCOCORT/SYNTH ANALOG 12/15/2015 UZMA VILLALOBOS MD E Ot Z48.3 AFTERCARE FOLLOWING SURGERY FOR NEOPLASM 12/15/2015 UZMA VILLALOBOS MD E Ot Z85.3 PERSONAL HISTORY OF MALIGNANT NEOPLASM O 12/15/2015 UZMA VILLALOBOS MD Ot Z93.0 TRACHEOSTOMY STATUS 12/15/2015 UZMA VILLALOBOS MD Ot Z93.1 GASTROSTOMY STATUS 12/16/2015 UZMA VILLALOBOS MD Ot C79.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 12/16/2015 UZMA VILLALOBOS MD Ot F32.9 MAJOR DEPRESSIVE DISORDER, SINGLE EPISOD 12/16/2015 UZMA VILLALOBOS MD E Ot G81.91 HEMIPLEGIA, UNSPECIFIED AFFECTING RIGHT 12/16/2015 UZMA VILLALOBOS MD E Ot H53.2 DIPLOPIA 12/16/2015 UZMA VILLALOBOS MD E Ot 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, UNS 12/16/2015 UZMA VILLALOBOS MD E Ot R13.10 DYSPHAGIA, UNSPECIFIED 12/16/2015 UZMA VILLALOBOS MD Ot R73.9 HYPERGLYCEMIA, UNSPECIFIED 12/16/2015 UZMA VILLALOBOS MD E Ot T38.0X5A ADVERSE EFFECT OF GLUCOCORT/SYNTH ANALOG 12/16/2015 UZMA VILLALOBOS MD Ot Z48.3 AFTERCARE FOLLOWING SURGERY FOR NEOPLASM 12/16/2015 UZMA VILLALOBOS MD Ot Z85.3 PERSONAL HISTORY OF MALIGNANT NEOPLASM O 12/16/2015 UZMA VILLALOBOS MD Ot Z93.0 TRACHEOSTOMY STATUS 12/16/2015 UZMA VILLALOBOS MD E Ot Z93.1 GASTROSTOMY STATUS 12/17/2015 UZMA VILLALOBOS MD Ot C79.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 12/17/2015 UZMA VILLALOBOS MD Ot F32.9 MAJOR DEPRESSIVE DISORDER, SINGLE EPISOD 12/17/2015 UZMA VILLALOBOS MD E Ot G81.91 HEMIPLEGIA, UNSPECIFIED AFFECTING RIGHT 12/17/2015 UZMA VILLALOBOS MD E Ot H53.2 DIPLOPIA 12/17/2015 UZMA VILLALOBOS MD E Ot 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, UNS 12/17/2015 UZMA VILLALOBOS MD E Ot R13.10 DYSPHAGIA, UNSPECIFIED 12/17/2015 UZMA VILLALOBOS MD Ot R73.9 HYPERGLYCEMIA, UNSPECIFIED 12/17/2015 UZMA VILLALOBOS MD E Ot T38.0X5A ADVERSE EFFECT OF GLUCOCORT/SYNTH ANALOG 12/17/2015 UZMA VILLALOBOS MD E Ot Z48.3 AFTERCARE FOLLOWING SURGERY FOR NEOPLASM 12/17/2015 UZMA VILLALOBOS MD Ot Z85.3 PERSONAL HISTORY OF MALIGNANT NEOPLASM O 12/17/2015 UZMA VILLALOBOS MD Ot Z93.0 TRACHEOSTOMY STATUS 12/17/2015 UZMA VILLALOBOS MD E Ot Z93.1 GASTROSTOMY STATUS 12/17/2015 UZMA VILLALOBOS MD Ot C79.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 12/17/2015 UZMA VILLALOBOS MD Ot F32.9 MAJOR DEPRESSIVE DISORDER, SINGLE EPISOD 12/17/2015 UZMA VILLALOBOS MD E Ot G81.91 HEMIPLEGIA, UNSPECIFIED AFFECTING RIGHT 12/17/2015 UZMA VILLALOBOS MD E Ot H53.2 DIPLOPIA 12/17/2015 UZMA VILLALOBOS MD E Ot 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, UNS 12/17/2015 UZMA VILLALOBOS MD E Ot R13.10 DYSPHAGIA, UNSPECIFIED 12/17/2015 UZMA VILLALOBOS MD Ot R73.9 HYPERGLYCEMIA, UNSPECIFIED 12/17/2015 UZMA VILLALOBOS MD E Ot T38.0X5A ADVERSE EFFECT OF GLUCOCORT/SYNTH ANALOG 12/17/2015 UZMA VILLALOBOS MD Ot Z48.3 AFTERCARE FOLLOWING SURGERY FOR NEOPLASM 12/17/2015 UZMA VILLALOBOS MD Ot Z85.3 PERSONAL HISTORY OF MALIGNANT NEOPLASM O 12/17/2015 UZMA VILLALOBOS MD E Ot Z93.0 TRACHEOSTOMY STATUS 12/17/2015 UZMA VILLALOBOS MD Ot Z93.1 GASTROSTOMY STATUS 12/18/2015 UZMA VILLALOBOS MD E Ot C79.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 12/18/2015 UZMA VILLALOBOS MD E Ot F32.9 MAJOR DEPRESSIVE DISORDER, SINGLE EPISOD 12/18/2015 UZMA VILLALOBOS MD E Ot G81.91 HEMIPLEGIA, UNSPECIFIED AFFECTING RIGHT 12/18/2015 UZMA VILLALOBOS MD E Ot H53.2 DIPLOPIA 12/18/2015 UZMA VILLALOBOS MD E Ot 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, UNS 12/18/2015 UZMA VILLALOBOS MD E Ot R13.10 DYSPHAGIA, UNSPECIFIED 12/18/2015 UZMA VILLALOBOS MD Ot R73.9 HYPERGLYCEMIA, UNSPECIFIED 12/18/2015 UZMA VILLALOBOS MD E Ot T38.0X5A ADVERSE EFFECT OF GLUCOCORT/SYNTH ANALOG 12/18/2015 UZMA VILLALOBOS MD Ot Z48.3 AFTERCARE FOLLOWING SURGERY FOR NEOPLASM 12/18/2015 UZMA VILLALOBOS MD Ot Z85.3 PERSONAL HISTORY OF MALIGNANT NEOPLASM O 12/18/2015 UZMA VILLALOBOS MD Ot Z93.0 TRACHEOSTOMY STATUS 12/18/2015 UZMA VILLALOBOS MD Ot Z93.1 GASTROSTOMY STATUS 12/19/2015 UZMA VILLALOBOS MD Ot C79.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 12/19/2015 UZMA VILLALOBOS MD Ot F32.9 MAJOR DEPRESSIVE DISORDER, SINGLE EPISOD 12/19/2015 UZMA VILLALOBOS MD E Ot G81.91 HEMIPLEGIA, UNSPECIFIED AFFECTING RIGHT 12/19/2015 UZMA VILLALOBOS MD E Ot H53.2 DIPLOPIA 12/19/2015 UZMA VILLALOBOS MD E Ot 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, UNS 12/19/2015 UZMA VILLALOBOS MD E Ot R13.10 DYSPHAGIA, UNSPECIFIED 12/19/2015 UZMA VILLALOBOS MD Ot R73.9 HYPERGLYCEMIA, UNSPECIFIED 12/19/2015 UZMA VILLALOBOS MD E Ot T38.0X5A ADVERSE EFFECT OF GLUCOCORT/SYNTH ANALOG 12/19/2015 UZMA VILLALOBOS MD Ot Z48.3 AFTERCARE FOLLOWING SURGERY FOR NEOPLASM 12/19/2015 UZMA VILLALOBOS MD E Ot Z85.3 PERSONAL HISTORY OF MALIGNANT NEOPLASM O 12/19/2015 UZMA VILLALOBOS MD E Ot Z93.0 TRACHEOSTOMY STATUS 12/19/2015 UZMA VILLALOBOS MD E Ot Z93.1 GASTROSTOMY STATUS 12/20/2015 UZMA VILLALOBOS MD Ot C79.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 12/20/2015 UZMA VILLALOBOS MD E Ot F32.9 MAJOR DEPRESSIVE DISORDER, SINGLE EPISOD 12/20/2015 UZMA VILLALOBOS MD E Ot G81.91 HEMIPLEGIA, UNSPECIFIED AFFECTING RIGHT 12/20/2015 UZMA VILLALOBOS MD E Ot H53.2 DIPLOPIA 12/20/2015 UZMA VILLALOBOS MD E Ot 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, UNS 12/20/2015 UZMA VILLALOBOS MD E Ot R13.10 DYSPHAGIA, UNSPECIFIED 12/20/2015 UZMA VILLALOBOS MD E Ot R73.9 HYPERGLYCEMIA, UNSPECIFIED 12/20/2015 UZMA VILLALOBOS MD E Ot T38.0X5A ADVERSE EFFECT OF GLUCOCORT/SYNTH ANALOG 12/20/2015 UZMA VILLALOBOS MD Ot Z48.3 AFTERCARE FOLLOWING SURGERY FOR NEOPLASM 12/20/2015 UZMA VILLALOBOS MD E Ot Z85.3 PERSONAL HISTORY OF MALIGNANT NEOPLASM O 12/20/2015 UZMA VILLALOBOS MD E Ot Z93.0 TRACHEOSTOMY STATUS 12/20/2015 UZMA VILLALOBOS MD Ot Z93.1 GASTROSTOMY STATUS 12/21/2015 UZMA VILLALOBOS MD Ot C79.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 12/21/2015 UZMA VILLALOBOS MD Ot F32.9 MAJOR DEPRESSIVE DISORDER, SINGLE EPISOD 12/21/2015 UZMA VILLALOBOS MD E Ot G81.91 HEMIPLEGIA, UNSPECIFIED AFFECTING RIGHT 12/21/2015 UZMA VILLALOBOS MD E Ot H53.2 DIPLOPIA 12/21/2015 UZMA VILLALOBOS MD E Ot 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, UNS 12/21/2015 UZMA VILLALOBOS MD E Ot R13.10 DYSPHAGIA, UNSPECIFIED 12/21/2015 UZMA VILLALOBOS MD E Ot R73.9 HYPERGLYCEMIA, UNSPECIFIED 12/21/2015 UZMA VILLALOBOS MD E Ot T38.0X5A ADVERSE EFFECT OF GLUCOCORT/SYNTH ANALOG 12/21/2015 UZMA VILLALOBOS MD E Ot Z48.3 AFTERCARE FOLLOWING SURGERY FOR NEOPLASM 12/21/2015 UZMA VILLALOBOS MD E Ot Z85.3 PERSONAL HISTORY OF MALIGNANT NEOPLASM O 12/21/2015 UZMA VILLALOBOS MD E Ot Z93.0 TRACHEOSTOMY STATUS 12/21/2015 UZMA VILLALOBOS MD E Ot Z93.1 GASTROSTOMY STATUS 12/21/2015 UZMA VILLALOBOS MD E Ot C79.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 12/21/2015 UZMA VILLALOBOS MD E Ot E87.1 HYPO-OSMOLALITY AND HYPONATREMIA 12/21/2015 UZMA VILLALOBOS MD E Ot F32.9 MAJOR DEPRESSIVE DISORDER, SINGLE EPISOD 12/21/2015 UZMA VILLALOBOS MD Ot G81.91 HEMIPLEGIA, UNSPECIFIED AFFECTING RIGHT 12/21/2015 UZMA VILLALOBOS MD Ot H53.2 DIPLOPIA 12/21/2015 UZMA VILLALOBOS MD Ot J15.1 PNEUMONIA DUE TO PSEUDOMONAS 12/21/2015 UZMA VILLALOBOS MD Ot 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, UNS 12/21/2015 UZMA VILLALOBOS MD Ot R13.10 DYSPHAGIA, UNSPECIFIED 12/21/2015 UZMA VILLALOBOS MD Ot R19.7 DIARRHEA, UNSPECIFIED 12/21/2015 UZMA VILLALOBOS MD E Ot R73.9 HYPERGLYCEMIA, UNSPECIFIED 12/21/2015 UZMA VILLALOBOS MD Ot T38.0X5A ADVERSE EFFECT OF GLUCOCORT/SYNTH ANALOG 12/21/2015 UZMA VILLALOBOS MD Ot Z48.3 AFTERCARE FOLLOWING SURGERY FOR NEOPLASM 12/21/2015 UZMA VILLALOBOS MD Ot Z85.3 PERSONAL HISTORY OF MALIGNANT NEOPLASM O 12/21/2015 UZMA VILLALOBOS MD Ot Z93.0 TRACHEOSTOMY STATUS 12/21/2015 UZMA VILLALOBOS MD Ot Z93.1 GASTROSTOMY STATUS 12/23/2015 ONESIMO HUFFMAN MD Ot 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 OF UNSP SITE OF RIGHT 12/23/2015 ONESIMO HUFFMAN MD Ot C77.3 SEC AND UNSP MALIG NEOPLASM OF AXILLA AN 12/23/2015 ONESIMO HUFFMAN MD Ot 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 [ER+] 12/23/2015 ONESIMO HUFFMAN MD Ot Z90.11 ACQUIRED ABSENCE OF RIGHT BREAST AND NIP 12/24/2015 BERTA TINOCO MD Ot C79.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 12/24/2015 BERTA TINOCO MD Ot F32.9 MAJOR DEPRESSIVE DISORDER, SINGLE EPISOD 12/24/2015 BERTA TINOCO MD Ot G81.91 HEMIPLEGIA, UNSPECIFIED AFFECTING RIGHT 12/24/2015 BERTA TINOCO MD Ot H53.2 DIPLOPIA 12/24/2015 BERTA TINOCO MD Ot J15.1 PNEUMONIA DUE TO PSEUDOMONAS 12/24/2015 BERTA TINOCO MD Ot 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, UNS 12/24/2015 BERTA TINOCO MD Ot R13.10 DYSPHAGIA, UNSPECIFIED 12/24/2015 BERTA TINOCO MD Ot Z85.3 PERSONAL HISTORY OF MALIGNANT NEOPLASM O 12/24/2015 BERTA TINOCO MD Ot Z93.0 TRACHEOSTOMY STATUS 12/24/2015 BERTA TINOCO MD Ot Z93.1 GASTROSTOMY STATUS 12/27/2015 BERTA TINOCO MD Ot C79.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 12/27/2015 BERTA TINOCO MD Ot F32.9 MAJOR DEPRESSIVE DISORDER, SINGLE EPISOD 12/27/2015 BERTA TINOCO MD Ot G81.91 HEMIPLEGIA, UNSPECIFIED AFFECTING RIGHT 12/27/2015 BERTA TINOCO MD Ot H53.2 DIPLOPIA 12/27/2015 BERTA TINOCO MD Ot J15.1 PNEUMONIA DUE TO PSEUDOMONAS 12/27/2015 BERTA TINOCO MD Ot 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, UNS 12/27/2015 BERTA TINOCO MD Ot R13.10 DYSPHAGIA, UNSPECIFIED 12/27/2015 BERTA TINOCO MD Ot Z85.3 PERSONAL HISTORY OF MALIGNANT NEOPLASM O 12/27/2015 BERTA TINOCO MD Ot Z93.0 TRACHEOSTOMY STATUS 12/27/2015 BERTA TINOCO MD Ot Z93.1 GASTROSTOMY STATUS 12/27/2015 BERTA TINOCO MD Ot C79.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 12/27/2015 BERTA TINOCO MD Ot F32.9 MAJOR DEPRESSIVE DISORDER, SINGLE EPISOD 12/27/2015 BERTA TINOCO MD Ot G81.91 HEMIPLEGIA, UNSPECIFIED AFFECTING RIGHT 12/27/2015 BERTA TINOCO MD Ot H53.2 DIPLOPIA 12/27/2015 BERTA TINOCO MD Ot J15.1 PNEUMONIA DUE TO PSEUDOMONAS 12/27/2015 BERTA TINOCO MD Ot 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, UNS 12/27/2015 BERTA TINOCO MD Ot R13.10 DYSPHAGIA, UNSPECIFIED 12/27/2015 BERTA TINOCO MD Ot Z85.3 PERSONAL HISTORY OF MALIGNANT NEOPLASM O 12/27/2015 BERTA TINOCO MD Ot Z93.0 TRACHEOSTOMY STATUS 12/27/2015 ALEJANDRINA MD, BERTA A Ot Z93.1 GASTROSTOMY STATUS 12/28/2015 BERTA TINOCO MD Ot C79.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 12/28/2015 BERTA TINOCO MD Ot F32.9 MAJOR DEPRESSIVE DISORDER, SINGLE EPISOD 12/28/2015 BERTA TINOCO MD Ot G81.91 HEMIPLEGIA, UNSPECIFIED AFFECTING RIGHT 12/28/2015 BERTA TINOCO MD Ot H53.2 DIPLOPIA 12/28/2015 BERTA TINOCO MD Ot J15.1 PNEUMONIA DUE TO PSEUDOMONAS 12/28/2015 BERTA TINOCO MD Ot 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, UNS 12/28/2015 BERTA TINOCO MD Ot R13.10 DYSPHAGIA, UNSPECIFIED 12/28/2015 BERTA TINOCO MD Ot Z85.3 PERSONAL HISTORY OF MALIGNANT NEOPLASM O 12/28/2015 BERTA TINOCO MD Ot Z93.0 TRACHEOSTOMY STATUS 12/28/2015 BERTA TINOCO MD Ot Z93.1 GASTROSTOMY STATUS 12/29/2015 BERTA TINOCO MD Ot C79.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 12/29/2015 BERTA TINOCO MD Ot F32.9 MAJOR DEPRESSIVE DISORDER, SINGLE EPISOD 12/29/2015 BERTA TINOCO MD Ot G81.91 HEMIPLEGIA, UNSPECIFIED AFFECTING RIGHT 12/29/2015 BERTA TINOCO MD Ot H53.2 DIPLOPIA 12/29/2015 BERTA TINOCO MD Ot J15.1 PNEUMONIA DUE TO PSEUDOMONAS 12/29/2015 BERTA TINOCO MD Ot 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, UNS 12/29/2015 BERTA TINOCO MD Ot R13.10 DYSPHAGIA, UNSPECIFIED 12/29/2015 BERTA TINOCO MD Ot Z85.3 PERSONAL HISTORY OF MALIGNANT NEOPLASM O 12/29/2015 BERTA TINOCO MD Ot Z93.0 TRACHEOSTOMY STATUS 12/29/2015 BERTA TINOCO MD Ot Z93.1 GASTROSTOMY STATUS 12/30/2015 BERTA TINOCO MD Ot C79.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 12/30/2015 BERTA TINOCO MD Ot F32.9 MAJOR DEPRESSIVE DISORDER, SINGLE EPISOD 12/30/2015 BERTA TINOCO MD Ot G81.91 HEMIPLEGIA, UNSPECIFIED AFFECTING RIGHT 12/30/2015 BERTA TINOCO MD Ot H53.2 DIPLOPIA 12/30/2015 BERTA TINOCO MD Ot J15.1 PNEUMONIA DUE TO PSEUDOMONAS 12/30/2015 BERTA TINOCO MD Ot 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, UNS 12/30/2015 BERTA TINOCO MD Ot R13.10 DYSPHAGIA, UNSPECIFIED 12/30/2015 BERTA TINOCO MD Ot Z85.3 PERSONAL HISTORY OF MALIGNANT NEOPLASM O 12/30/2015 BERTA TINOCO MD Ot Z93.0 TRACHEOSTOMY STATUS 12/30/2015 BERTA TINOCO MD Ot Z93.1 GASTROSTOMY STATUS 12/31/2015 BERTA TINOCO MD Ot C79.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 12/31/2015 BERTA TINOCO MD Ot F32.9 MAJOR DEPRESSIVE DISORDER, SINGLE EPISOD 12/31/2015 BERTA TINOCO MD Ot G81.91 HEMIPLEGIA, UNSPECIFIED AFFECTING RIGHT 12/31/2015 BERTA TINOCO MD Ot H53.2 DIPLOPIA 12/31/2015 BERTA TINOCO MD Ot J15.1 PNEUMONIA DUE TO PSEUDOMONAS 12/31/2015 BERTA TINOCO MD Ot 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, UNS 12/31/2015 BERTA TINOCO MD Ot R13.10 DYSPHAGIA, UNSPECIFIED 12/31/2015 BERTA TINOCO MD Ot Z85.3 PERSONAL HISTORY OF MALIGNANT NEOPLASM O 12/31/2015 BERTA TINOCO MD Ot Z93.0 TRACHEOSTOMY STATUS 12/31/2015 BERTA TINOCO MD Ot Z93.1 GASTROSTOMY STATUS 12/31/2015 BERTA TINOCO MD Ot C79.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 12/31/2015 BERTA TINOCO MD Ot F32.9 MAJOR DEPRESSIVE DISORDER, SINGLE EPISOD 12/31/2015 BERTA TINOCO MD Ot G81.91 HEMIPLEGIA, UNSPECIFIED AFFECTING RIGHT 12/31/2015 BERTA TINOCO MD Ot H53.2 DIPLOPIA 12/31/2015 BERTA TINOCO MD Ot J15.1 PNEUMONIA DUE TO PSEUDOMONAS 12/31/2015 BERTA TINOCO MD Ot 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, UNS 12/31/2015 BERTA TINOCO MD Ot R13.10 DYSPHAGIA, UNSPECIFIED 12/31/2015 BERTA TINOCO MD Ot Z85.3 PERSONAL HISTORY OF MALIGNANT NEOPLASM O 12/31/2015 BERTA TINOCO MD Ot Z93.0 TRACHEOSTOMY STATUS 12/31/2015 BERTA TINOCO MD Ot Z93.1 GASTROSTOMY STATUS 01/01/2016 BERTA TINOCO MD Ot C79.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 01/01/2016 BERTA TINOCO MD Ot F32.9 MAJOR DEPRESSIVE DISORDER, SINGLE EPISOD 01/01/2016 BERTA TINOCO MD Ot G81.91 HEMIPLEGIA, UNSPECIFIED AFFECTING RIGHT 01/01/2016 BERTA TINOCO MD Ot H53.2 DIPLOPIA 01/01/2016 BERTA TINOCO MD Ot J15.1 PNEUMONIA DUE TO PSEUDOMONAS 01/01/2016 BERTA TINOCO MD Ot 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, UNS 01/01/2016 BERTA TINOCO MD Ot R13.10 DYSPHAGIA, UNSPECIFIED 01/01/2016 BERTA TINOCO MD Ot Z85.3 PERSONAL HISTORY OF MALIGNANT NEOPLASM O 01/01/2016 BERTA TINOCO MD Ot Z93.0 TRACHEOSTOMY STATUS 01/01/2016 BERTA TINOCO MD Ot Z93.1 GASTROSTOMY STATUS 01/01/2016 BERTA TINOCO MD Ot C79.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 01/01/2016 BERTA TINOCO MD Ot F32.9 MAJOR DEPRESSIVE DISORDER, SINGLE EPISOD 01/01/2016 BERTA TINOCO MD Ot G81.91 HEMIPLEGIA, UNSPECIFIED AFFECTING RIGHT 01/01/2016 BERTA TINOCO MD Ot H53.2 DIPLOPIA 01/01/2016 BERTA TINOCO MD Ot J15.1 PNEUMONIA DUE TO PSEUDOMONAS 01/01/2016 BERTA TINOCO MD Ot 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, UNS 01/01/2016 BERTA TINOCO MD Ot R13.10 DYSPHAGIA, UNSPECIFIED 01/01/2016 BERTA TINOCO MD Ot Z85.3 PERSONAL HISTORY OF MALIGNANT NEOPLASM O 01/01/2016 BERTA TINOCO MD Ot Z93.0 TRACHEOSTOMY STATUS 01/01/2016 BERTA TINOCO MD Ot Z93.1 GASTROSTOMY STATUS 01/02/2016 BERTA TINOCO MD Ot C79.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 01/02/2016 BERTA TINOCO MD Ot F32.9 MAJOR DEPRESSIVE DISORDER, SINGLE EPISOD 01/02/2016 BERTA TINOCO MD Ot G81.91 HEMIPLEGIA, UNSPECIFIED AFFECTING RIGHT 01/02/2016 BERTA TINOCO MD Ot H53.2 DIPLOPIA 01/02/2016 BERTA TINOCO MD Ot J15.1 PNEUMONIA DUE TO PSEUDOMONAS 01/02/2016 BERTA TINOCO MD Ot 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, UNS 01/02/2016 BERTA TINOCO MD Ot R13.10 DYSPHAGIA, UNSPECIFIED 01/02/2016 BERTA TINOCO MD Ot Z85.3 PERSONAL HISTORY OF MALIGNANT NEOPLASM O 01/02/2016 BERTA TINOCO MD Ot Z93.0 TRACHEOSTOMY STATUS 01/02/2016 BERTA TINOCO MD Ot Z93.1 GASTROSTOMY STATUS 01/03/2016 BERTA TINOCO MD Ot C79.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 01/03/2016 BERTA TINOCO MD Ot F32.9 MAJOR DEPRESSIVE DISORDER, SINGLE EPISOD 01/03/2016 BERTA TINOCO MD Ot G81.91 HEMIPLEGIA, UNSPECIFIED AFFECTING RIGHT 01/03/2016 BERTA TINOCO MD Ot H53.2 DIPLOPIA 01/03/2016 BERTA TINOCO MD Ot J15.1 PNEUMONIA DUE TO PSEUDOMONAS 01/03/2016 BERTA TINOCO MD Ot 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, UNS 01/03/2016 BERTA TINOCO MD Ot R13.10 DYSPHAGIA, UNSPECIFIED 01/03/2016 BERTA TINOCO MD Ot Z85.3 PERSONAL HISTORY OF MALIGNANT NEOPLASM O 01/03/2016 BERTA TINOCO MD Ot Z93.0 TRACHEOSTOMY STATUS 01/03/2016 BERTA TINOCO MD Ot Z93.1 GASTROSTOMY STATUS 01/04/2016 BERTA TINOCO MD Ot C79.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 01/04/2016 BERTA TINOCO MD Ot F32.9 MAJOR DEPRESSIVE DISORDER, SINGLE EPISOD 01/04/2016 BERTA TINOCO MD Ot G81.91 HEMIPLEGIA, UNSPECIFIED AFFECTING RIGHT 01/04/2016 BERTA TINOCO MD Ot H53.2 DIPLOPIA 01/04/2016 BERTA TINOCO MD Ot J15.1 PNEUMONIA DUE TO PSEUDOMONAS 01/04/2016 BERTA TINOCO MD Ot 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, UNS 01/04/2016 BERTA TINOCO MD Ot R13.10 DYSPHAGIA, UNSPECIFIED 01/04/2016 BERTA TINOCO MD Ot Z85.3 PERSONAL HISTORY OF MALIGNANT NEOPLASM O 01/04/2016 BERTA TINOCO MD Ot Z93.0 TRACHEOSTOMY STATUS 01/04/2016 BERTA TINOCO MD Ot Z93.1 GASTROSTOMY STATUS 01/04/2016 BERTA TINOCO MD Ot C79.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 01/04/2016 BERTA TINOCO MD Ot F32.9 MAJOR DEPRESSIVE DISORDER, SINGLE EPISOD 01/04/2016 BERTA TINOCO MD Ot G81.91 HEMIPLEGIA, UNSPECIFIED AFFECTING RIGHT 01/04/2016 BERTA TINOCO MD Ot H53.2 DIPLOPIA 01/04/2016 BERTA TINOCO MD Ot J15.1 PNEUMONIA DUE TO PSEUDOMONAS 01/04/2016 BERTA TINOCO MD Ot 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7 DIARRHEA, UNSPECIFIED 01/10/2016 UZMA VILLALOBOS MD E Ot Z48.3 AFTERCARE FOLLOWING SURGERY FOR NEOPLASM 01/10/2016 UZMA VILLALOBOS MD E Ot Z85.3 PERSONAL HISTORY OF MALIGNANT NEOPLASM O 01/10/2016 UZMA VILLALOBOS MD E Ot Z90.10 ACQUIRED ABSENCE OF UNSPECIFIED BREAST A 01/10/2016 UZMA VILLALOBOS MD E Ot Z93.0 TRACHEOSTOMY STATUS 01/17/2016 UZMA VILLALOBOS MD E Ot B37.0 CANDIDAL STOMATITIS 01/17/2016 UZMA VILLALOBOS MD E Ot C79.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 01/17/2016 UZMA VILLALOBOS MD E Ot F41.1 GENERALIZED ANXIETY DISORDER 01/17/2016 LUIS M VILLALOBOS MDIC E Ot R13.10 DYSPHAGIA, UNSPECIFIED 01/17/2016 UZMA VILLALOBOS MD E Ot R19.7 DIARRHEA, UNSPECIFIED 01/17/2016 UZMA VILLALOBOS MD E Ot Z48.3 AFTERCARE FOLLOWING SURGERY FOR NEOPLASM 01/17/2016 UZMA VILLALOBOS MD E Ot Z85.3 PERSONAL HISTORY OF MALIGNANT NEOPLASM O 01/17/2016 UZMA VILLALOBOS MD E Ot Z90.10 ACQUIRED ABSENCE OF UNSPECIFIED BREAST A 01/17/2016 UZMA VILLALOBOS MD E Ot Z93.0 TRACHEOSTOMY STATUS 01/21/2016 LUIS M VILLALOBOS MDIC E Ot B37.0 CANDIDAL STOMATITIS 01/21/2016 UZMA VILLALOBOS MD E Ot C79.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 01/21/2016 LUIS M VILLALOBOS MDIC E Ot F41.1 GENERALIZED ANXIETY DISORDER 01/21/2016 LUIS M VILLALOBOS MDIC E Ot R13.10 DYSPHAGIA, UNSPECIFIED 01/21/2016 LUIS M VILLALOBOS MDIC E Ot R19.7 DIARRHEA, UNSPECIFIED 01/21/2016 UZMA VILLALOBOS MD E Ot Z48.3 AFTERCARE FOLLOWING SURGERY FOR NEOPLASM 01/21/2016 UZMA VILLALOBOS MD E Ot Z85.3 PERSONAL HISTORY OF MALIGNANT NEOPLASM O 01/21/2016 UZMA VILLALOBOS MD E Ot Z90.10 ACQUIRED ABSENCE OF UNSPECIFIED BREAST A 01/21/2016 UZMA VILLALOBOS MD E Ot Z93.0 TRACHEOSTOMY STATUS 01/24/2016 UZMA VILLALOBOS MD E Ot B37.0 CANDIDAL STOMATITIS 01/24/2016 UZMA VILLALOBOS MD Ot C79.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 01/24/2016 UZMA VILLALOBOS MD Ot F41.1 GENERALIZED ANXIETY DISORDER 01/24/2016 UZMA VILLALOBOS MD E Ot R13.10 DYSPHAGIA, UNSPECIFIED 01/24/2016 UZMA VILLALOBOS MD E Ot R19.7 DIARRHEA, UNSPECIFIED 01/24/2016 UZMA VILLALOBOS MD E Ot Z48.3 AFTERCARE FOLLOWING SURGERY FOR NEOPLASM 01/24/2016 UZMA VILLALOBOS MD E Ot Z85.3 PERSONAL HISTORY OF MALIGNANT NEOPLASM O 01/24/2016 UZMA VILLALOBOS MD E Ot Z90.10 ACQUIRED ABSENCE OF UNSPECIFIED BREAST A 01/24/2016 UZMA VILLALOBOS MD Ot Z93.0 TRACHEOSTOMY STATUS 01/26/2016 ONESIMO HUFFMAN MD Ot 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 OF UNSP SITE OF RIGHT 01/26/2016 ONESIMO HUFFMAN MD Ot C77.3 SEC AND UNSP MALIG NEOPLASM OF AXILLA AN 01/26/2016 ONESIMO HUFFMAN MD Ot 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 [ER+] 01/26/2016 ONESIMO HUFFMAN MD Ot Z79.899 OTHER SPIRITUAL MINISTER (CURRENT) DRUG THERAPY 01/26/2016 ONESIMO HUFFMAN MD Ot Z90.11 ACQUIRED ABSENCE OF RIGHT BREAST AND NIP 01/31/2016 UZMA VILLALOBOS MD Ot B37.0 CANDIDAL STOMATITIS 01/31/2016 UZMA VILLALOBOS MD Ot C79.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 01/31/2016 UZMA VILLALOBOS MD Ot F41.1 GENERALIZED ANXIETY DISORDER 01/31/2016 UZMA VILLALOBOS MD E Ot R13.10 DYSPHAGIA, UNSPECIFIED 01/31/2016 UZMA VILLALOBOS MD E Ot R19.7 DIARRHEA, UNSPECIFIED 01/31/2016 UZMA VILLALOBOS MD E Ot Z48.3 AFTERCARE FOLLOWING SURGERY FOR NEOPLASM 01/31/2016 UZMA VILLALOBOS MD E Ot Z85.3 PERSONAL HISTORY OF MALIGNANT NEOPLASM O 01/31/2016 UZMA VILLALOBOS MD E Ot Z90.10 ACQUIRED ABSENCE OF UNSPECIFIED BREAST A 01/31/2016 UZMA VILLALOBOS MD E Ot Z93.0 TRACHEOSTOMY STATUS 02/03/2016 UZMA VILLALOBOS MD E Ot B37.0 CANDIDAL STOMATITIS 02/03/2016 VILLALOBOS MD, UZMA E Ot C79.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 02/03/2016 WILFREDO DE LA GARZA UZMA E Ot F41.1 GENERALIZED ANXIETY DISORDER 02/03/2016 WILFREDO DE LA GARZA UZMA E Ot R13.10 DYSPHAGIA, UNSPECIFIED 02/03/2016 WILFREDO DE LA GARZA UZMA E Ot R19.7 DIARRHEA, UNSPECIFIED 02/03/2016 WILFREDO DE LA GARZA UZMA E Ot Z48.3 AFTERCARE FOLLOWING SURGERY FOR NEOPLASM 02/03/2016 WILFREDO DE LA GARZA UZMA E Ot Z85.3 PERSONAL HISTORY OF MALIGNANT NEOPLASM O 02/03/2016 WILFREDO DE LA GARZA UZMA E Ot Z90.10 ACQUIRED ABSENCE OF UNSPECIFIED BREAST A 02/03/2016 WILFREDO DE LA GARZA UZMA E Ot Z93.0 TRACHEOSTOMY STATUS 02/03/2016 WILFREDO DE LA GARZA UZMA E Ot B37.0 CANDIDAL STOMATITIS 02/03/2016 WILFREDO DE LA GARZA UZMA E Ot C79.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 02/03/2016 WILFREDO DE LA GARZA UZMA E Ot F41.1 GENERALIZED ANXIETY DISORDER 02/03/2016 WILFREDO DE LA GARZA UZMA E Ot R13.10 DYSPHAGIA, UNSPECIFIED 02/03/2016 WILFREDO DE LA GARZA UZMA E Ot R19.7 DIARRHEA, UNSPECIFIED 02/03/2016 WILFREDO DE AL GARZA UZMA E Ot Z48.3 AFTERCARE FOLLOWING SURGERY FOR NEOPLASM 02/03/2016 WILFREDO DE LA GARZA UZMA E Ot Z85.3 PERSONAL HISTORY OF MALIGNANT NEOPLASM O 02/03/2016 WILFREDO DE LA GARZA UZMA E Ot Z90.10 ACQUIRED ABSENCE OF UNSPECIFIED BREAST A 02/03/2016 WILFREDO DE LA GARZA UZMA E Ot Z93.0 TRACHEOSTOMY STATUS 02/07/2016 WILFREDO DE LA GARZA UZMA E Ot B37.0 CANDIDAL STOMATITIS 02/07/2016 WILFREDO DE LA GARZA UZMA E Ot C79.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 02/07/2016 WILFREDO DE LA GARZA UZMA E Ot F41.1 GENERALIZED ANXIETY DISORDER 02/07/2016 WILFREDO DE LA GARZA UZMA E Ot R13.10 DYSPHAGIA, UNSPECIFIED 02/07/2016 WILFREDO DE LA GARZA UZMA E Ot R19.7 DIARRHEA, UNSPECIFIED 02/07/2016 WILFREDO DE LA GARZA UZMA E Ot Z48.3 AFTERCARE FOLLOWING SURGERY FOR NEOPLASM 02/07/2016 WILFREDO DE LA GARZA UZMA E Ot Z85.3 PERSONAL HISTORY OF MALIGNANT NEOPLASM O 02/07/2016 WILFREDO DE LA GARZA UZMA E Ot Z90.10 ACQUIRED ABSENCE OF UNSPECIFIED BREAST A 02/07/2016 WILFREDO DE LA GARZA UZMA E Ot Z93.0 TRACHEOSTOMY STATUS 02/09/2016 WILFREDO DE LA GARZA UZMA E Ot B37.0 CANDIDAL STOMATITIS 02/09/2016 WILFREDO DE LA GARZA UZMA E Ot C79.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 02/09/2016 LUIS M VILLALOBOS MDIC E Ot F41.1 GENERALIZED ANXIETY DISORDER 02/09/2016 WILFREDO DE LA GARZA UZMA E Ot R13.10 DYSPHAGIA, UNSPECIFIED 02/09/2016 WILFREDO DE LA GARZA UZMA E Ot R19.7 DIARRHEA, UNSPECIFIED 02/09/2016 WILFREDO DE LA GARZA UZMA E Ot Z48.3 AFTERCARE FOLLOWING SURGERY FOR NEOPLASM 02/09/2016 WILFREDO DE LA GARZA UZMA E Ot Z85.3 PERSONAL HISTORY OF MALIGNANT NEOPLASM O 02/09/2016 WILFREDO DE LA GARZA UZMA E Ot Z90.10 ACQUIRED ABSENCE OF UNSPECIFIED BREAST A 02/09/2016 UZMA VILLALOBOS MD E Ot Z93.0 TRACHEOSTOMY STATUS 02/10/2016 WILFREDO DE LA GARZA UZMA E Ot B37.0 CANDIDAL STOMATITIS 02/10/2016 WILFREDO DE LA GARZA UZMA E Ot C79.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 02/10/2016 LUIS M VILLALOBOS MDIC E Ot F41.1 GENERALIZED ANXIETY DISORDER 02/10/2016 WILFREDO DE LA GARZA UZMA E Ot R13.10 DYSPHAGIA, UNSPECIFIED 02/10/2016 WILFREDO DE LA GARZA UZMA E Ot R19.7 DIARRHEA, UNSPECIFIED 02/10/2016 WILFREDO DE LA GARZA UZMA E Ot Z48.3 AFTERCARE FOLLOWING SURGERY FOR NEOPLASM 02/10/2016 WILFREDO DE LA GARZA UZMA E Ot Z85.3 PERSONAL HISTORY OF MALIGNANT NEOPLASM O 02/10/2016 WILFREDO DE LA GARZA UZMA E Ot Z90.10 ACQUIRED ABSENCE OF UNSPECIFIED BREAST A 02/10/2016 WILFREDO DE LA GARZA UZMA E Ot Z93.0 TRACHEOSTOMY STATUS 02/11/2016 WILFREDO DE LA GARZA UZMA E Ot B37.0 CANDIDAL STOMATITIS 02/11/2016 UZMA VILLALOBOS MD E Ot C79.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 02/11/2016 WILFREDO DE LA GARZA UZMA E Ot F41.1 GENERALIZED ANXIETY DISORDER 02/11/2016 UZMA VILLALOBOS MD E Ot R13.10 DYSPHAGIA, UNSPECIFIED 02/11/2016 WILFREDO DE LA GARZA UZMA E Ot R19.7 DIARRHEA, UNSPECIFIED 02/11/2016 LUIS M VILLALOBOS MDIC E Ot Z48.3 AFTERCARE FOLLOWING SURGERY FOR NEOPLASM 02/11/2016 UZMA VILLALOBOS MD E Ot Z85.3 PERSONAL HISTORY OF MALIGNANT NEOPLASM O 02/11/2016 LUIS M VILLALOBOS MDIC E Ot Z90.10 ACQUIRED ABSENCE OF UNSPECIFIED BREAST A 02/11/2016 UZMA VILLALOBOS MD E Ot Z93.0 TRACHEOSTOMY STATUS 02/12/2016 UZMA VILLALOBOS MD E Ot B37.0 CANDIDAL STOMATITIS 02/12/2016 UZMA VILLALOBOS MD E Ot C79.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 02/12/2016 UZMA VILLALOBOS MD E Ot F41.1 GENERALIZED ANXIETY DISORDER 02/12/2016 LUIS M VILLALOBOS MDIC E Ot R13.10 DYSPHAGIA, UNSPECIFIED 02/12/2016 LUIS M VILLALOBOS MDIC E Ot R19.7 DIARRHEA, UNSPECIFIED 02/12/2016 LUIS M VILLALOBOS MDIC E Ot Z48.3 AFTERCARE FOLLOWING SURGERY FOR NEOPLASM 02/12/2016 UZMA VILLALOBOS MD E Ot Z85.3 PERSONAL HISTORY OF MALIGNANT NEOPLASM O 02/12/2016 UZMA VILLALOBOS MD E Ot Z90.10 ACQUIRED ABSENCE OF UNSPECIFIED BREAST A 02/12/2016 UZMA VILLALOBOS MD E Ot Z93.0 TRACHEOSTOMY STATUS 02/13/2016 UZMA VILLALOBOS MD E Ot B37.0 CANDIDAL STOMATITIS 02/13/2016 LUIS M VILLALOBOS MDIC E Ot C79.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 02/13/2016 LUIS M VILLALOBOS MDIC E Ot F41.1 GENERALIZED ANXIETY DISORDER 02/13/2016 LUIS M VILLALOBOS MDIC E Ot R13.10 DYSPHAGIA, UNSPECIFIED 02/13/2016 WILFREDO DE LA GARZA UZMA E Ot R19.7 DIARRHEA, UNSPECIFIED 02/13/2016 WILFREDO DE LA GARZA UZMA E Ot Z48.3 AFTERCARE FOLLOWING SURGERY FOR NEOPLASM 02/13/2016 UZMA VILLALOBOS MD E Ot Z85.3 PERSONAL HISTORY OF MALIGNANT NEOPLASM O 02/13/2016 UZMA VILLALOBOS MD E Ot Z90.10 ACQUIRED ABSENCE OF UNSPECIFIED BREAST A 02/13/2016 UZMA VILLALOBOS MD E Ot Z93.0 TRACHEOSTOMY STATUS 02/14/2016 UZMA VILLALOBOS MD E Ot B37.0 CANDIDAL STOMATITIS 02/14/2016 UZMA VILLALOBOS MD E Ot C79.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 02/14/2016 UZMA VILLALOBOS MD E Ot F41.1 GENERALIZED ANXIETY DISORDER 02/14/2016 UZMA VILLALOBOS MD E Ot R13.10 DYSPHAGIA, UNSPECIFIED 02/14/2016 UZMA VILLALOBOS MD E Ot R19.7 DIARRHEA, UNSPECIFIED 02/14/2016 UZMA VILLALOBOS MD E Ot Z48.3 AFTERCARE FOLLOWING SURGERY FOR NEOPLASM 02/14/2016 UZMA VILLALOBOS MD E Ot Z85.3 PERSONAL HISTORY OF MALIGNANT NEOPLASM O 02/14/2016 UZMA VILLALOBOS MD E Ot Z90.10 ACQUIRED ABSENCE OF UNSPECIFIED BREAST A 02/14/2016 UZMA VILLALOBOS MD E Ot Z93.0 TRACHEOSTOMY STATUS 02/15/2016 UZMA VILLALOBOS MD E Ot B37.0 CANDIDAL STOMATITIS 02/15/2016 UZMA VILLALOBOS MD E Ot C79.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 02/15/2016 UZMA VILLALOBOS MD E Ot F41.1 GENERALIZED ANXIETY DISORDER 02/15/2016 UZMA VILLALOBOS MD E Ot R13.10 DYSPHAGIA, UNSPECIFIED 02/15/2016 UZMA VILLALOBOS MD E Ot R19.7 DIARRHEA, UNSPECIFIED 02/15/2016 UZMA VILLALOBOS MD E Ot Z48.3 AFTERCARE FOLLOWING SURGERY FOR NEOPLASM 02/15/2016 UZMA VILLALOBOS MD E Ot Z85.3 PERSONAL HISTORY OF MALIGNANT NEOPLASM O 02/15/2016 UZMA VILLALOBOS MD E Ot Z90.10 ACQUIRED ABSENCE OF UNSPECIFIED BREAST A 02/15/2016 UZMA VILLALOBOS MD E Ot Z93.0 TRACHEOSTOMY STATUS 02/15/2016 UZMA VILLALOBOS MD E Ot B37.0 CANDIDAL STOMATITIS 02/15/2016 UZMA VILLALOBOS MD E Ot 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 OF UNSP SITE OF RIGHT 02/15/2016 UZMA VILLALOBOS MD E Ot C79.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 02/15/2016 UZAM VILLALOBOS MD E Ot D64.9 ANEMIA, UNSPECIFIED 02/15/2016 UZMA VILLALOBOS MD E Ot F41.1 GENERALIZED ANXIETY DISORDER 02/15/2016 UZMA VILLALOBOS MD E Ot J15.1 PNEUMONIA DUE TO PSEUDOMONAS 02/15/2016 UZMA VILLALOBOS MD E Ot 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, UNS 02/15/2016 UZMA VILLALOBOS MD E Ot J69.0 PNEUMONITIS DUE TO INHALATION OF FOOD AN 02/15/2016 UZMA VILLALOBOS MD Ot K94.13 ENTEROSTOMY MALFUNCTION 02/15/2016 UZMA VILLALOBOS MD Ot R13.10 DYSPHAGIA, UNSPECIFIED 02/15/2016 UZMA VILLALOBOS MD Ot R19.7 DIARRHEA, UNSPECIFIED 02/15/2016 UZMA VILLALOBOS MD Ot R63.6 UNDERWEIGHT 02/15/2016 UZMA VILLALOBOS MD, Ot 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 [ER+] 02/15/2016 UZMA VILLALOBOS MD Ot Z48.3 AFTERCARE FOLLOWING SURGERY FOR NEOPLASM 02/15/2016 UZMA VILLALOBOS MD Ot Z68.22 BODY MASS INDEX (BMI) 22.0-22.9, ADULT 02/15/2016 UZMA VILLALOBOS MD Ot Z85.3 PERSONAL HISTORY OF MALIGNANT NEOPLASM O 02/15/2016 UZMA VILLALOBOS MD Ot Z90.10 ACQUIRED ABSENCE OF UNSPECIFIED BREAST A 02/15/2016 UZMA VILLALOBOS MD Ot Z93.0 TRACHEOSTOMY STATUS 02/15/2016 UZMA VILLALOBOS MD Ot Z93.1 GASTROSTOMY STATUS 03/10/2016 ONESIMO HUFFMAN MD Ot C50.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 03/13/2016 ONESIMO HUFFMAN MD, Ot C50.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 03/21/2016 ONESIMO HUFFMAN MD Ot 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 OF UNSP SITE OF RIGHT 03/21/2016 ONESIMO HUFFMAN MD Ot C77.3 SEC AND UNSP MALIG NEOPLASM OF AXILLA AN 03/21/2016 ONESIMO HUFFMAN MD, Ot 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 [ER+] 03/21/2016 ONESIMO HUFFMAN MD, Ot Z79.899 OTHER SPIRITUAL MINISTER (CURRENT) DRUG THERAPY 03/21/2016 ONESIMO HUFFMAN MD Ot Z90.11 ACQUIRED ABSENCE OF RIGHT BREAST AND NIP 03/22/2016 ONESIMO HUFFMAN MD Ot C50.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 03/27/2016 ONESIMO HUFFMAN MD, Ot 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 OF UNSP SITE OF RIGHT 03/27/2016 ONESIMO HUFFMAN MD Ot C77.3 SEC AND UNSP MALIG NEOPLASM OF AXILLA AN 03/27/2016 ONESIMO HUFFMAN MD, Ot 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 [ER+] 03/27/2016 ONESIMO HUFFMAN MD, Ot Z79.899 OTHER SPIRITUAL MINISTER (CURRENT) DRUG THERAPY 03/27/2016 ONESIMO HUFFMAN MD, Ot Z90.11 ACQUIRED ABSENCE OF RIGHT BREAST AND NIP 04/04/2016 ONESIMO HUFFMAN MD, Ot 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 OF UNSP SITE OF RIGHT 04/04/2016 ONESIMO HUFFMAN MD, Ot C77.3 SEC AND UNSP MALIG NEOPLASM OF AXILLA AN 04/04/2016 ONESIMO HUFFMAN MD, Ot 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 [ER+] 04/04/2016 ONESIMO HUFFMAN MD, Ot Z79.899 OTHER SPIRITUAL MINISTER (CURRENT) DRUG THERAPY 04/04/2016 ONESIMO HUFFMAN MD, Ot Z90.11 ACQUIRED ABSENCE OF RIGHT BREAST AND NIP 04/13/2016 ONESIMO HUFFMAN MD, Ot 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 OF UNSP SITE OF RIGHT 04/13/2016 ONESIMO HUFFMAN MD, Ot C77.3 SEC AND UNSP MALIG NEOPLASM OF AXILLA AN 04/13/2016 ONESIMO HUFMFAN MD, Ot 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 [ER+] 04/13/2016 ONESIMO HUFFMAN MD, Ot Z79.899 OTHER SKILLED NURSING (CURRENT) DRUG THERAPY 04/13/2016 ONESIMO HUFFMAN MD, Ot Z90.11 ACQUIRED ABSENCE OF RIGHT BREAST AND NIP 04/25/2016 ONESIMO HUFFMAN MD, Ot C50.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 04/25/2016 ONESIMO HUFFMAN MD, Ot C79.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 04/25/2016 ONESIMO HUFFMAN MD, Ot M14.89 ARTHROPATHIES IN OTH DISEASES CLASSD ELS 04/25/2016 ONESIMO HUFFMAN MD, Ot Z78.0 ASYMPTOMATIC MENOPAUSAL STATE 04/26/2016 ONESIMO HUFFMAN MD, Ot C50.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 04/26/2016 ONESIMO HUFFMAN MD, Ot C79.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 04/26/2016 ONESIMO HUFFMAN MD, Ot M14.89 ARTHROPATHIES IN OTH DISEASES CLASSD ELS 04/26/2016 ONESIMO HUFFMAN MD, Ot Z78.0 ASYMPTOMATIC MENOPAUSAL STATE 04/27/2016 ONESIMO HUFFMAN MD, Ot C50.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 04/27/2016 ONESIMO HUFFMAN MD, Ot C79.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 04/27/2016 ONESIMO HUFFMAN MD, Ot M14.89 ARTHROPATHIES IN OTH DISEASES CLASSD ELS 04/27/2016 ONESIMO HUFFMAN MD, Ot Z78.0 ASYMPTOMATIC MENOPAUSAL STATE 04/27/2016 ONESIMO HUFFMAN MD, Ot 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 OF UNSP SITE OF RIGHT 04/27/2016 ONESIMO HUFFMAN MD, Ot C77.3 SEC AND UNSP MALIG NEOPLASM OF AXILLA AN 04/27/2016 ONESIMO HUFFMAN MD, Ot 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 [ER+] 04/27/2016 ONESIMO HUFFMAN MD, Ot Z79.899 OTHER SPIRITUAL MINISTER (CURRENT) DRUG THERAPY 04/27/2016 ONESIMO HUFFMAN MD, Ot Z90.11 ACQUIRED ABSENCE OF RIGHT BREAST AND NIP 05/12/2016 ONESIMO HUFFMAN MD, Ot C50.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 05/12/2016 ONESIMO HUFFMAN MD, Ot C79.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 05/12/2016 ONESIMO HUFFMAN MD, Ot E83.52 HYPERCALCEMIA 05/12/2016 ONESIMO HUFFMAN MD, Ot E87.0 HYPEROSMOLALITY AND HYPERNATREMIA 05/12/2016 ONESIMO HUFFMAN MD, Ot F32.9 MAJOR DEPRESSIVE DISORDER, SINGLE EPISOD 05/12/2016 ONESIMO HUFFMAN MD Ot 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, UNSPECI 05/12/2016 ONESIMO HUFFMAN MD Ot R19.7 DIARRHEA, UNSPECIFIED 05/12/2016 ONESIMO HUFFMAN MD, Ot 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 [ER+] 05/12/2016 ONESIMO HUFFMAN MD Ot Z66 DO NOT RESUSCITATE 05/12/2016 ONESIMO HUFFMAN MD Ot Z93.1 GASTROSTOMY STATUS 05/12/2016 ONESIMO HUFFMAN MD, Ot C50.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 05/12/2016 ONESIMO HUFFMAN MD, Ot C79.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 05/12/2016 ONESIMO HUFFMAN MD, Ot E83.52 HYPERCALCEMIA 05/12/2016 ONESIMO HUFFMAN MD, Ot E87.0 HYPEROSMOLALITY AND HYPERNATREMIA 05/12/2016 ONESIMO HUFFMAN MD Ot F32.9 MAJOR DEPRESSIVE DISORDER, SINGLE EPISOD 05/12/2016 ONESIMO HUFFMAN MD Ot 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, UNSPECI 05/12/2016 ONESIMO HUFFMAN MD Ot R19.7 DIARRHEA, UNSPECIFIED 05/12/2016 ONESIMO HUFFMAN MD Ot 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 [ER+] 05/12/2016 ONESIMO HUFFMAN MD Ot Z66 DO NOT RESUSCITATE 05/12/2016 ONESIMO HUFFMAN MD Ot Z93.1 GASTROSTOMY STATUS 05/13/2016 ONESIMO HUFFMAN MD Ot C50.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 05/13/2016 ONESIMO HUFFMAN MD, Ot C79.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 05/13/2016 ONESIMO HUFFMAN MD Ot E83.52 HYPERCALCEMIA 05/13/2016 ONESIMO HUFFMAN MD Ot E87.0 HYPEROSMOLALITY AND HYPERNATREMIA 05/13/2016 ONESIMO HUFFMAN MD Ot F32.9 MAJOR DEPRESSIVE DISORDER, SINGLE EPISOD 05/13/2016 ONESIMO HUFFMAN MD Ot 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, UNSPECI 05/13/2016 ONESIMO HUFFMAN MD Ot R19.7 DIARRHEA, UNSPECIFIED 05/13/2016 ONESIMO HUFFMAN MD Ot 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 [ER+] 05/13/2016 ONESIMO HUFFMAN MD Ot Z66 DO NOT RESUSCITATE 05/13/2016 ONESIMO HUFFMAN MD Ot Z93.1 GASTROSTOMY STATUS 05/16/2016 ONESIMO HUFFMAN MD, Ot C50.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 05/16/2016 ONESIMO HUFFMAN MD, Ot C79.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 05/16/2016 ONESIMO HUFFMAN MD Ot M14.89 ARTHROPATHIES IN OTH DISEASES CLASSD ELS 05/16/2016 ONESIMO HUFFMAN MD Ot Z78.0 ASYMPTOMATIC MENOPAUSAL STATE 05/19/2016 ONESIMO HUFFMAN MD, Ot C50.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 05/19/2016 ONESIMO HUFFMAN MD, Ot C79.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 05/19/2016 ONESIMO HUFFMAN MD Ot E83.52 HYPERCALCEMIA 05/19/2016 ONESIMO HUFFMAN MD Ot E87.0 HYPEROSMOLALITY AND HYPERNATREMIA 05/19/2016 ONESIMO HUFFMAN MD Ot F32.9 MAJOR DEPRESSIVE DISORDER, SINGLE EPISOD 05/19/2016 ARMIDA DE LA GARZA, ONESIMO Pearce Ot 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 Visit Date/Time Discharge Status Pt. Type Provider Facility Loc./Unit Complaint [id number] 03/17/2016 10:47:00 2016 00:01:00 DIS Outpatient ONESIMO HUFFMAN MD Via [facility] ONC [id number] 01/04/2016 10:05:00 2016 11:10:00 DIS Inpatient UZMA VILLALOBOS MD Via [facility] METASTATIC BREAST CANCER [id number] 12/21/2015 08:39:00 2015 10:00:00 DIS Inpatient BERTA TINOCO MD Via [address] METASTATIC BREAST CANCER,GENERAL IMMOBILITY [id number] 12/08/2015 14:20:00 2015 08:39:00 DIS Inpatient UZMA VILLALOBOS MD Via [facility] METASTATIC BREAST CANCER,GENERAL IMMOBILITY [id number] 10/13/2015 10:54:00 2015 08:01:00 DIS Outpatient ONESIMO HUFFMAN MD Via [facility] ONC [id number] 09/14/2015 09:26:00 2015 00:01:00 DIS Outpatient ONESIMO HUFFMAN MD Via [facility] ONC [id number] 05/27/2015 12:44:00 2015 00:01:00 DIS Outpatient ONESIMO HUFFMAN MD Via [facility] ONC [id number] 03/01/2015 08:45:00 2015 00:01:00 DIS Outpatient ONESIMO HUFFMAN MD Via [facility] ONC [id number] 11/03/2014 08:29:00 2014 00:01:00 DIS Outpatient ONESIMO HUFFMAN MD Via [facility] ONC [id number] 10/23/2014 14:00:00 2014 23:59:59 CLS Outpatient ONESIMO HUFFMAN MD Via [facility] CARD CARDIOTOXIC CHEMO [id number] 08/06/2014 10:22:00 2014 23:59:59 CLS Outpatient SABRINA BRYAN Via [facility] ONC [id number] 07/30/2014 10:11:00 2014 00:01:00 DIS Outpatient ONESIMO HUFFMAN MD Via [facility] ONC [id number] 07/28/2014 13:44:00 2014 23:59:59 CLS Outpatient ONESIMO HUFFMAN MD Via [facility] CARD BREAST CA, CARDIOTOXIC DRUGS [id number] 05/13/2014 08:34:00 2014 23:59:59 CLS Outpatient SABRINA BRYAN Via [facility] ONC [id number] 05/12/2014 11:30:00 2014 23:59:59 CLS Outpatient ONESIMO HUFFMAN MD Via [facility] RAD BREAST CA [id number] 05/11/2014 13:28:00 2014 23:59:59 CLS Outpatient ONESIMO HUFFMAN MD Via [facility] CARD BREAST CA [id number] 05/08/2014 07:11:00 2014 11:45:00 DIS Outpatient BASIA MILLER MD Via [facility] SDC RIGHT BREAST INFILTRATING CARCINOMA [id number] 05/07/2014 12:19:00 2014 23:59:59 CLS Outpatient BASIA MILLER MD Via [facility] PREOP RIGHT BREAST INFILTRATING CARCINOMA [id number] 03/17/2014 09:01:00 2014 23:59:59 CLS Outpatient INDER RODAS APRN Via [facility] RAD SCREENING [id number] 05/11/2016 14:26:00 ACT Inpatient ONESIMO HUFFMAN MD Via [facility] 4TH HYPERCALCEMIA/UTI [id number] 05/11/2016 12:38:00 ACT Outpatient ONESIMO HUFFMAN MD [facility] ONC [id number] 04/25/2016 14:01:00 ACT Outpatient ONESIMO HUFFMAN MD [facility] RAD BREAST CA [id number] 03/09/2016 12:17:00 ACT Outpatient ONESIMO HUFFMAN MD [facility] RAD BREAST CANCER [id number] 10/13/2015 10:29:00 ACT Outpatient ONESIMO HUFFMAN MD [facility] RAD NAUSEA,VOMITTING,BREAST CANCER [id number] 10/12/2015 15:30:00 ACT Outpatient ONESIMO HUFFMAN MD Via [facility] RAD ENCOUTNER FOR MONITORING CARDIOTOXIC DRUG THERAPY [id number] 07/01/2015 14:07:00 ACT Outpatient ONESIMO HUFFMAN MD Via [facility] CARD BREAST CANCER, MONITORING DRUG THERAPY [id number] 06/24/2015 09:49:00 ACT Outpatient ONESIMO HUFFMAN MD [facility] RAD BREAST CANCER, MONITORING DRUG THERAPY [id number] 05/05/2015 13:44:00 ACT Outpatient SABRINA BRYAN Via [facility] ONC [id number] 04/08/2015 13:52:00 ACT Outpatient ONESIMO HUFFMAN MD [facility] CARD DYSPNEA, [id number] 01/26/2015 12:37:00 ACT Outpatient ONESIMO HUFFMAN MD Via [facility] CARD CARIOTOXIC DRUG THERAPY [id number] 05/11/2014 13:28:00 Document Registration [id number] 04/29/2014 09:44:00 Document Registration [id number] 04/23/2014 10:29:00 Document Registration
== END 2016-05-24 16:20 | DRG 641 ==
LOC: 4TH 14:26
PROVIDERS: ADMIT Internal Medicine Hematology & Oncology; ATTEND Internal Medicine Hematology & Oncology
DX: E83.52 Hypercalcemia (principal); E87.0 Hyperosmolality and hypernatremia; N39.0 Urinary tract infection, site not specified; C79.31 Secondary malignant neoplasm of brain; C50.411 Malignant neoplasm of upper-outer quadrant of right female breast; Z66 Do not resuscitate; L89.159 Pressure ulcer of sacral region, unspecified stage; R19.7 Diarrhea, unspecified; F32.9 Major depressive disorder, single episode, unspecified; Z17.0 Estrogen receptor positive status [ER+]; M62.81 Muscle weakness (generalized); R53.81 Other malaise; R41.0 Disorientation, unspecified; T45.0X5A Adverse effect of antiallergic and antiemetic drugs, initial encounter; R09.02 Hypoxemia; B96.89 Other specified bacterial agents as the cause of diseases classified elsewhere; B95.2 Enterococcus as the cause of diseases classified elsewhere; D49.9 Neoplasm of unspecified behavior of unspecified site; G13.1 Other systemic atrophy primarily affecting central nervous system in neoplastic disease; L89.619 Pressure ulcer of right heel, unspecified stage; K94.23 Gastrostomy malfunction; R15.9 Full incontinence of feces; R32 Unspecified urinary incontinence
CPT/HCPCS: 36415; 70470; 71010; 74022; 80048; 80053; 81000; 83735; 85025; 85027; 87045; 87046; 87070; 87077; 87088; 87186; 87205; 87324; 87449; 94799

== ENCOUNTER 2016-07-03 08:00 | Outpatient (RCR) | payer BC ==
[~2016-07-03 08:00] MED LIST changes: +ACET325T49 JT; +ACET650S15 PR; +AMYLASE PO; +BISA10SU12 PR; +LIPASE PO; +LORA2ORA PEG; +MORP100S3 PEG; +PROTEASE PO; +ZINC28PA TOP
== END 2016-10-01 | disposition home or self-care (01) ==
LOC: ONC 08:00
PROVIDERS: ATTEND Internal Medicine Hematology & Oncology
DX: C50.911 Malignant neoplasm of unspecified site of right female breast (principal); C77.3 Secondary and unspecified malignant neoplasm of axilla and upper limb lymph nodes; Z17.0 Estrogen receptor positive status [ER+]; Z90.11 Acquired absence of right breast and nipple; Z79.899 Other long term (current) drug therapy